=== PATIENT | male | born 1960 | race Caucasian/White ===

== ENCOUNTER 2017-01-13 17:15 | Inpatient (IN) | payer MEDICAID ==
[~2017-01-13 17:15] MED LIST: Sodium Chloride 0.9% 1,000 ML IV SCH
[2017-01-13] MEDS ORDERED: Sodium Chloride 0.9% 1,000 ML IV SCH (18:30)
[2017-01-13] MEDS ORDERED: Midazolam 1 MG/ML 2 ML SDV IVPUSH ONE (19:45)
--- NOTE | 2017-01-13 21:10 | EDM.PDOC ---
ED HPI GENERAL MEDICAL PROBLEM - General Chief Complaint: Gastrointestinal Problem Stated Complaint: VOMITING Time Seen by Provider: 01/13/17 18:23 Source of Information: Reports: Patient History Limitations: Reports: No Limitations - History of Present Illness INITIAL COMMENTS - FREE TEXT/NARRATIVE: History of present illness: [56-year-old male sent from the clinic with a small bowel obstruction. I did plain films there in lab work which I reviewed in the plain films do reveal multiple air-fluid levels and dilated loops of bowel. He's had nausea and vomiting with this he has a history of multiple abdominal surgeries and has had bowel obstructions in the past. Said no fever chills with this chest pain or shortness of breath no dysuria] Review of systems: As per history of present illness and below otherwise all systems reviewed and negative. Past medical history: As per history of present illness and as reviewed below otherwise noncontributory. Surgical history: As per history of present illness and as reviewed below otherwise noncontributory. Social history: No reported history of drug or alcohol abuse. Family history: As per history of present illness and as reviewed below otherwise noncontributory. Physical exam: HEENT: Atraumatic, Lungs: Clear to auscultation, breath sounds equal bilaterall Heart: S1S2, regular, negative for clicks, rubs, or JVD. Abdomen: Somewhat distended with hypoactive bowel sounds but no significant tenderness. No masses appreciated. Extremities: Atraumatic, negative for cords or calf pain. Neurovascular unremarkable. Neuro: Awake, alert, oriented. Exam nonfocal. Diagnostics: [X-rays lab work reviewed from the clinic in the x-rays do show multiple air- fluid levels with distended bowel. His creatinine is 2.21 with a history of renal failure.] Therapeutics: [IV fluids are going in the NG tube has been placed.] Impression: [Small bowel obstruction] Plan: [I talked to Dr. Álvarez the patient be admitted and he'll be in later to see him.] Definitive disposition and diagnosis as appropriate pending reevaluation and review of above. Abdomen Pain Score (Numeric/FACES): 8 - Related Data Allergies Allergy/AdvReac Type Severity Reaction Status Date / Time No Known Allergies Allergy Verified 01/13/17 18:21 Home Meds: Home Meds *Antacid Tablets 2 - 4 tab PO Q4HR PRN 04/15/13 [History] *Drysol 1 applic TOP ASDIRECTED 04/15/13 [History] Atenolol 100 mg PO DAILY 04/15/13 [History] Bisacodyl [Biscolax] 10 mg RC BID PRN 04/15/13 [History] Bisacodyl [Laxative] 10 mg PO DAILY 04/15/13 [History] Divalproex Sodium [Divalproex Sodium ER] 1,500 mg PO QPM 04/15/13 [History] Doxazosin Mesylate [Cardura] 4 mg PO DAILY 04/15/13 [History] Famotidine 40 mg PO BID 04/15/13 [History] Haloperidol 10 mg PO BID 04/15/13 [History] Ibuprofen [Motrin] 600 mg PO Q6H PRN 04/15/13 [History] LORazepam [Ativan] 1 mg PO BID 04/15/13 [History] LORazepam [Ativan] 1 mg PO BID PRN 04/15/13 [History] Levothyroxine 75 mcg PO DAILY 04/15/13 [History] Magnesium Hydroxide [Milk of Magnesia] 30 ml PO DAILY PRN 04/15/13 [History] Polyethylene Glycol 3350 [MiraLAX] 17 gm PO ASDIRECTED 04/15/13 [History] cloZAPine [Clozapine] 400 mg PO QPM 04/15/13 [History] diphenhydrAMINE [Benadryl] 25 mg PO QAM 04/15/13 [History] diphenhydrAMINE [Benadryl] 100 mg PO QPM 04/15/13 [History] Hypromellose [Systane Gel] 10 gm OP QID 10/06/13 [History] Latanoprost [Xalatan] 2.5 ml OP DAILY 10/06/13 [History] Past Medical History - Past Health History Medical/Surgical History: Denies Medical/Surgical History Gastrointestinal History: Reports: Bowel Obstruction Psychiatric History: Reports: Mood Swings, Schizophrenia - Past Surgical History GI Surgical History: Reports: Small Bowel Social & Family History - Tobacco Use Smoking Status *Q: Former Smoker Years of Tobacco use: 30 Used Tobacco, but Quit: Yes Month Tobacco Last Used: unknown Second Hand Smoke Exposure: No - Caffeine Use Caffeine Use: Reports: Soda - Alcohol Use Days Per Week of Alcohol Use: 1 Number of Drinks Per Day: 1 Total Drinks Per Week: 1 - Recreational Drug Use Recreational Drug Use: No - Living Situation & Occupation Living situation: Reports: Other ED ROS GENERAL - Review of Systems Review Of Systems: ROS reveals no pertinent complaints other than HPI. ED EXAM, GI/ABD - Physical Exam Exam: See Below Course - Vital Signs Last Recorded V/S: Last Vital Signs Temp 36.8 C 01/13/17 18:19 Pulse 89 01/13/17 20:05 Resp 14 01/13/17 20:05 BP 134/67 01/13/17 20:05 Pulse Ox 96 01/13/17 20:05 - Orders/Labs/Meds Orders: Active Orders 24 hr Category Date Time Status Sodium Chloride 0.9% [Normal Saline] 1,000 ml Med 01/13/17 18:30 Active IV ASDIRECTED Medication Orders Sodium Chloride (Normal Saline) 1,000 mls @ 500 mls/hr IV ASDIRECTED WILI Last Admin: 01/13/17 19:19 Dose: 500 mls/hr Meds: Medications Generic Name Dose Route Start Last Admin Trade Name Freq PRN Reason Stop Dose Admin Sodium Chloride 1,000 mls @ 500 mls/hr 01/13/17 18:30 01/13/17 19:19 Normal Saline IV 500 mls/hr ASDIRECTED WILI Administration Discontinued Medications Generic Name Dose Route Start Last Admin Trade Name Freq PRN Reason Stop Dose Admin Midazolam HCl 2 mg 01/13/17 19:45 01/13/17 20:02 Versed 1 Mg/Ml IVPUSH 01/13/17 19:46 2 mg ONETIME ONE Administration Departure - Departure Time of Disposition: 21:09 Disposition: Admitted As Inpatient 66 Condition: Good Clinical Impression: Small bowel obstruction - Discharge Information Forms: ED Department Discharge - My Orders Last 24 Hours: My Active Orders 01/13/17 18:30 Sodium Chloride 0.9% [Normal Saline] 1,000 ml IV ASDIRECTED - Assessment/Plan Last 24 Hours: My Active Orders 01/13/17 18:30 Sodium Chloride 0.9% [Normal Saline] 1,000 ml IV ASDIRECTED
[2017-01-13] MEDS ORDERED: Bisacodyl 10 MG Supp RECTAL PRN (22:14)
[2017-01-13] MEDS ORDERED: LORazepam 2 MG/ML MDV IM PRN (22:16)
[2017-01-13] MEDS ORDERED: Haloperidol Lactate 5 MG/ML SDV IM PRN (22:16)
[2017-01-13] MEDS ORDERED: Ondansetron 4 MG/2 ML SDV IVPUSH PRN (22:24)
[2017-01-13] MEDS ORDERED: Pantoprazole 40 MG Vial IVPUSH SCH (23:00)
[2017-01-14] MEDS: HYDROmorphone 0.5 MG/0.5 ML Syringe IVPUSH PRN ×3 (00:56→19:35)
--- NOTE | 2017-01-14 01:31 | HP ---
IDENTIFYING DATA: Tuan Perez is a 56-year-old single male from [place]. CHIEF COMPLAINT: Abdominal pain, nausea, and vomiting. HISTORY OF PRESENT ILLNESS: Adult male, who is a [facility] a [facility]. Staff have noted 1-1/2-day history of abdominal distention, abdominal discomfort, nausea, and recurrent emesis. He has a prior history of previous small bowel obstructions and suspecting recurring trouble, he presented to the clinic. Radiographic imaging did suggest small bowel obstruction. He was transferred to the emergency room for stabilization and admission. An NG placed in the emergency room resulted in alleviation of his abdominal pain and emesis. He is now resting comfortably in the medical bed. He has been a resident of the [facility] in [place] for approximately 5 years' time. More remote medical history is unknown to the staff. They report a previous history of abdominal surgeries of unknown type and prior hospitalizations for small bowel obstruction. He does have a history of intermittent dyspepsia. No known history of hepatitis or jaundice. No renal disease. PAST MEDICAL HISTORY: History of chronic schizophrenia on psychotropic agents with accompanying anxiety disorder. He has a reported history of hypertension, hypothyroidism, and mental retardation. HABITS: Nonsmoker. Minimal caffeine intake with occasional soft drinks. Does not drink coffee. Alcohol intake is summed up by 1 drink per year without routine alcohol intake. IMMUNIZATIONS: Does receive annual influenza vaccines. Tetanus booster last provided in 2008. SOCIAL HISTORY: Twin brother resides in [facility]. He has no direct close relatives in the immediate area. Staff members of the [facility] accompany him tonight. He typically ambulates independently, toilets without assistance. Occasionally, has overflow incontinence. He self feeds and dresses without assistance. Does require assistance with bathing or showering. FAMILY HISTORY: Unable to obtain. REVIEW OF SYSTEMS: NEUROLOGIC: Mental retardation, chronic schizophrenia, and anxiety disorder. No history of strokes, seizures, or headaches. He does have a history of dry eye syndrome and glaucomatous eye disease with eyedrops use. CARDIAC: History of hypertension. No recognized history of congenital heart disease, [place], chest pain, palpitations, or syncope. No history of diabetes. RESPIRATORY: Denies cough, sputum production, shortness of breath, or chest pain. No history of reported COPD. GI: As above. : No history of renal disease. Voids independently. Rises once to twice nightly to void and returns to bed. MUSCULOSKELETAL: Without arthralgias. He does walk with a shuffling gait. MENTAL STATUS: Chronic schizophrenia. Occasionally, has auditory hallucinations, more noticeable by staff's report. His intermittent anxiety is managed with anxiolytics. CURRENT MEDICATIONS: Calcium antacids 2 to 4 tablets q.4 hours p.r.n., Drysol applied topically p.r.n. sweat, atenolol 100 mg daily, bisacodyl 10 mg rectally b.i.d. p.r.n. constipation, bisacodyl 10 mg p.o. daily, divalproex 1500 mg at p.m., doxazosin 4 mg daily, famotidine 40 mg b.i.d., haloperidol 10 mg b.i.d., ibuprofen 600 mg q.6 hours p.r.n. discomfort, lorazepam 1 mg b.i.d. and q.6 hours p.r.n. anxiety, levothyroxine 75 mcg daily, milk of magnesia 30 mL daily p.r.n. constipation, MiraLax 17 g p.r.n. constipation, clozapine 400 mg q.p.m., diphenhydramine 25 mg a.m. and 100 mg p.m., Systane gel to eyes q.i.d., and Xalatan 2.5 (0.005%) ophthalmic solution 1 drop to eyes at bedtime. PHYSICAL EXAMINATION: GENERAL: Appearance is that of an adult male, now resting quietly in bed. Denies abdominal discomfort. NG is in place. VITAL SIGNS: Temperature 36.8, blood pressure 134/67, respiratory rate 14, pulse 89 and regular, and O2 sats 96% on room air. HEENT: Hearing is intact. Extraocular eye movements are intact. Sclerae anicteric. No oropharyngeal lesions. NG in place. NECK: Brisk carotid pulses. No stridor, adenopathy, or nuchal rigidity. LUNGS: Symmetrical and clear. Non-tachypneic, resonant. HEART: Regular without murmurs, gallops noted. ABDOMEN: Mildly distended. Mild tenderness diffusely without guarding, rebound, referred pain, or localization. No obvious organomegaly or other unusual masses. Bowel sounds are heard. Good femoral pulses. AND RECTAL: Omitted. EXTREMITIES: Warm and pink. No pitting edema. Brisk capillary refill. Good arterial pulses noted. LABORATORY DATA: Obtained in the clinic included a creatinine of 2.21, glucose 118, potassium 4.2, BUN 41, and AST 18. WBC 6.2 with hemoglobin 13.3. Sodium 142 and calcium 13. IMPRESSION: 1. Small bowel obstruction, acute, with noted history of recurrent small bowel obstructions. 2. Chronic schizophrenia, on psychotropic agents. 3. Anxiety disorder. 4. Reported mild mental retardation. 5. Hypertension. 6. Hypothyroidism. PLAN: The patient is admitted to Med/Surg floor for continued supportive cares. NG tube is in place to provide decompression. We will offer IV fluid hydration with normal saline at 125 mL/hr. Followup studies include CBC, BMP, and flat plate of the abdomen. We will hold his p.o. medications providing IV Haldol and Ativan as needed for anxiety, restlessness, agitation, or psychotic features. Protonix IV infusion is provided as PPI gastric protective therapy. DNR status is instituted with staff noting former declaration. We will provide a healthcare directive to place in the medical record. We will maintain n.p.o. status. Consider resumption of clear liquid intake and cautiously advance diet if bowel function is restored and passage of gas and stool is noted. If he has ongoing obstructive symptoms, we will consult surgical services for continued assistance in management. Nicolas Álvarez MD /[id number]
[2017-01-14] MEDS ORDERED: Hypromellose 0.4% Ophth Soln 15 ML Bottle EYEBOTH SCH (06:00)
[2017-01-14] MEDS: Sodium Chloride 0.9% 1,000 ML IV SCH ×2 (06:14→13:47)
[2017-01-14] MEDS: Enoxaparin 40 MG/0.4 ML Syringe SUBCUT SCH (08:38)
[2017-01-14] MEDS ORDERED: Enoxaparin 30 MG/0.3 ML Syringe SUBCUT SCH (09:00)
[2017-01-14] MEDS ORDERED: Latanoprost 0.005% Ophth Soln 2.5 ML Bottle EYERT SCH (09:00)
[2017-01-14] MEDS: Hypromellose 0.4% Ophth Soln 15 ML Bottle EYEBOTH SCH ×3 (09:09→23:30)
--- NOTE | 2017-01-14 09:13 | CR ---
Abdomen 1V Flat HISTORY: FU SBO COMPARISON: 09/16/2015 FINDINGS: A couple of mildly prominent small bowel loops mid abdomen appear similar to the prior exa m. Bowel gas pattern is otherwise nonspecific. No free air is identified. No mass organomegaly is se en. Bony structures are unremarkable. IMPRESSION: There are couple of mildly dilated small bowel loops in the midabdomen similar to the pr ior exam. Findings could represent mild recurrent or chronic enteritis or early partial small bowel obstruction. Recommend clinical correlation and follow-up.
[2017-01-14] MEDS: LORazepam 2 MG/ML MDV IVPUSH PRN (16:24)
[2017-01-14] MEDS ORDERED: HYDROmorphone 1 MG/ML Syringe ONE (19:30)
[2017-01-14] MEDS ORDERED: Pantoprazole 40 MG Vial IVPUSH SCH (21:00)
[2017-01-14] MEDS: Latanoprost 0.005% Ophth Soln 2.5 ML Bottle EYERT SCH (21:31)
[2017-01-15] MEDS: LORazepam 2 MG/ML MDV IVPUSH PRN (00:29)
[2017-01-15] MEDS: HYDROmorphone 1 MG/ML Syringe IVPUSH PRN ×2 (02:18→10:35)
[2017-01-15] MEDS: Sodium Chloride 0.9% 1,000 ML IV SCH ×3 (06:14→21:07)
[2017-01-15] MEDS: Hypromellose 0.4% Ophth Soln 15 ML Bottle EYEBOTH SCH ×4 (06:20→21:08)
[2017-01-15] MEDS: Enoxaparin 40 MG/0.4 ML Syringe SUBCUT SCH (09:21)
--- NOTE | 2017-01-15 09:23 | PCM.PN ---
- General Info Date of Service: 01/15/17 Functional Status: Reports: pain controlled, urinating - Review of Systems General: Denies: Fever Gastrointestinal: Reports: Flatus. Denies: Abdominal pain Systems Review Comment:: No acute events overnight. Patient reports no abdominal pain this morning. He reports that he is passing gas but has not had a bowel movement as of yet. He is not running any fevers. Respiratory status is stable. No complaints of nausea or vomiting. He is hungry and asking when he gets to eat. - Patient Data Vitals - most recent: Last Vital Signs Temp 35.7 C 01/15/17 07:54 Pulse 98 01/15/17 07:54 Resp 16 01/15/17 07:54 BP 148/82 H 01/15/17 07:54 Pulse Ox 93 L 01/15/17 07:54 Weight - most recent: 72.076 kg I&O - last 24 hours: Intake & Output 01/14/17 01/15/17 01/15/17 22:59 06:59 14:59 Intake Total 1456 1517 Output Total 1450 1250 Balance 6 267 Lab Results last 24 hrs: Laboratory Results - last 24 hr 01/15/17 Range/Units 09:00 WBC 7.7 (4.5-11.0) K/uL RBC 4.36 (4.30-5.90) M/uL Hgb 12.7 (12.0-15.0) g/dL Hct 38.7 L (40.0-54.0) % MCV 89 (80-98) fL MCH 29 (27-31) pg MCHC 33 (32-36) % Plt Count 188 (150-400) K/uL Med Orders - Current: Current Medications Artificial Tears (Natural Balance Tears) 0 ml EYEBOTH QID [facility] Last Admin: 01/15/17 06:20 Dose: 1 drop Bisacodyl (Dulcolax) 10 mg RECTAL BID PRN PRN Reason: Constipation Enoxaparin Sodium (Lovenox) 40 mg SUBCUT DAILY [facility] Last Admin: 01/14/17 08:38 Dose: 40 mg Haloperidol Lactate (Haldol) 5 mg IM Q8H PRN PRN Reason: Psychosis Hydromorphone HCl (Dilaudid) 0.5 mg IVPUSH Q2H PRN PRN Reason: Pain Last Admin: 01/15/17 02:18 Dose: 0.5 mg Sodium Chloride (Normal Saline) 1,000 mls @ 125 mls/hr IV ASDIRECTED [facility] Last Admin: 01/15/17 06:14 Dose: 125 mls/hr Latanoprost (Xalatan 0.005% Ophth Soln) 0 ml EYERT BEDTIME [facility] Last Admin: 01/14/17 21:31 Dose: 1 drop Lorazepam (Ativan) 1 mg IVPUSH Q4H PRN PRN Reason: Agitation Last Admin: 01/15/17 00:29 Dose: 1 mg Ondansetron HCl (Zofran) 4 mg IVPUSH Q4H PRN PRN Reason: Nausea/Vomiting Pantoprazole Sodium (Protonix Iv) 40 mg IVPUSH Q24H [facility] Last Admin: 01/14/17 21:23 Dose: 40 mg Discontinued Medications Artificial Tears (Natural Balance Tears) 0 ml EYEBOTH QID [facility] Last Admin: 01/14/17 07:22 Dose: Not Given Enoxaparin Sodium (Lovenox) 40 mg SUBCUT DAILY [facility] Hydromorphone HCl (Dilaudid) 0.5 mg IVPUSH Q2H PRN PRN Reason: Pain Last Admin: 01/14/17 19:35 Dose: 0.5 mg Hydromorphone HCl (Dilaudid) Confirm Administered Dose 1 mg .ROUTE .STK-MED ONE Stop: 01/14/17 19:31 Last Admin: 01/14/17 21:23 Dose: Not Given Sodium Chloride (Normal Saline) 1,000 mls @ 500 mls/hr IV ASDIRECTED [facility] Last Admin: 01/13/17 19:19 Dose: 500 mls/hr Sodium Chloride (Normal Saline) 1,000 mls @ 125 mls/hr IV ASDIRECTED [facility] Latanoprost (Xalatan 0.005% Ophth Soln) 2.5 ml EYERT DAILY [facility] Lorazepam (Ativan) 2 mg IM Q4H PRN PRN Reason: Agitation Midazolam HCl (Versed 1 Mg/Ml) 2 mg IVPUSH ONETIME ONE Stop: 01/13/17 19:46 Last Admin: 01/13/17 20:02 Dose: 2 mg Pantoprazole Sodium (Protonix Iv) 40 mg IVPUSH Q24H [facility] Last Admin: 01/14/17 00:53 Dose: 40 mg - Exam Quality Assessment: No: supplemental oxygen General: alert, oriented, cooperative, no acute distress HEENT: Other (NG tube in place) Neck: supple Lungs: Clear to auscultation, Normal respiratory effort Cardiovascular: Regular Rate, Regular Rhythm Abdomen: bowel sounds present, soft, no tenderness, no distension Extremities: no edema, normal pulses Skin: warm, dry Psy/Mental Status: alert, anxious - Problem List & Annotations (1) Small bowel obstruction SNOMED Code(s): 734933506 Code(s): K56.69 - OTHER INTESTINAL OBSTRUCTION Status: Acute Current Visit: Yes (2) Schizophrenia SNOMED Code(s): 27963726 Code(s): F20.9 - SCHIZOPHRENIA, UNSPECIFIED Status: Chronic Current Visit : Yes Qualifiers: Schizophrenia type: unspecified Qualified Code(s): F20.9 - Schizophrenia, unspecified - Problem List Review Problem List Initiated/Reviewed/Updated: Yes - My Orders Last 24 Hours: My Active Orders 01/14/17 11:01 Resuscitation Status Routine 01/14/17 16:04 LORazepam [Ativan] 1 mg IVPUSH Q4H PRN 01/15/17 02:00 HYDROmorphone [Dilaudid] 0.5 mg IVPUSH Q2H PRN 01/15/17 09:00 BASIC METABOLIC PANEL,BMP [CHEM] Urgent 01/15/17 09:19 Communication Order [RC] ROUTINE 01/16/17 05:00 BASIC METABOLIC PANEL,BMP [CHEM] Timed CBC W/O DIFF,HEMOGRAM [HEME] Timed (1) - Plan Plan:: Assessment and plan - Recurrent small bowel obstruction - clinically improving at this time with nonsurgical management. No abdominal pain at this time and no significant distention. Patient is passing gas. -Clamp NG tube, consider removing if minimal output in 4 hours -Pain control if necessary -Ice chips for now, advance diet if NG tube comes out Chronic schizophrenia with anxiety no behaviors at this time. Has been tolerating IV medications. -Restart home medications when able after NG tube clamping trial Maintenance issues - - DVT prophylaxis - mechanical - GI prophylaxis - PPI - Nutrition - nothing by mouth for now - Rodriguez catheter - not indicated Disposition - [facility] to [facility] a [facility] days Farhan Nj M.D.
[2017-01-15] MEDS: LORazepam 1 MG Tab PO PRN (18:00)
[2017-01-15] MEDS: Divalproex Sodium 250 MG Tab.ER PO SCH (18:06)
[2017-01-15] MEDS: Famotidine 20 MG Tab PO SCH (20:25)
[2017-01-15] MEDS: LORazepam 1 MG Tab PO SCH (20:25)
[2017-01-15] MEDS: Latanoprost 0.005% Ophth Soln 2.5 ML Bottle EYERT SCH (20:26)
[2017-01-15] MEDS: Haloperidol 5 MG Tab PO SCH (20:26)
[2017-01-16] MEDS: Hypromellose 0.4% Ophth Soln 15 ML Bottle EYEBOTH SCH ×4 (05:57→21:07)
[2017-01-16] MEDS: LORazepam 1 MG Tab PO SCH ×2 (08:38→21:07)
[2017-01-16] MEDS: diphenhydrAMINE 25 MG Cap PO SCH (08:38)
[2017-01-16] MEDS: Enoxaparin 40 MG/0.4 ML Syringe SUBCUT SCH (08:39)
[2017-01-16] MEDS: Haloperidol 5 MG Tab PO SCH ×2 (08:39→21:06)
[2017-01-16] MEDS: Levothyroxine 75 MCG Tab PO SCH (08:39)
[2017-01-16] MEDS: Famotidine 20 MG Tab PO SCH ×2 (08:40→21:06)
[2017-01-16] MEDS: Atenolol 50 MG Tab PO SCH (08:40)
--- NOTE | 2017-01-16 08:57 | PCM.PN ---
- General Info Date of Service: 01/16/17 Functional Status: Reports: pain controlled, tolerating diet, ambulating - Review of Systems General: Reports: Weakness Gastrointestinal: Reports: Flatus. Denies: Abdominal pain Systems Review Comment:: no acute events overnight. No complaints of abdominal pain or nausea this morning. Tolerating clear liquids well with no change in symptoms. He has been passing gas but has not had a bowel movement. No fevers or shortness of breath. Anxiety has been well controlled. - Patient Data Vitals - most recent: Last Vital Signs Temp 36.4 C 01/16/17 08:06 Pulse 83 01/16/17 08:06 Resp 14 01/16/17 08:06 BP 135/85 01/16/17 08:40 Pulse Ox 94 L 01/16/17 08:06 Weight - most recent: 72.076 kg I&O - last 24 hours: Intake & Output 01/15/17 01/16/17 01/16/17 22:59 06:59 14:59 Intake Total 1878 675 Output Total 1300 1250 Balance 578 -575 Lab Results last 24 hrs: Laboratory Results - last 24 hr 01/15/17 01/15/17 01/16/17 Range/Units 09:00 09:00 06:10 WBC 7.7 10.0 (4.5-11.0) K/uL RBC 4.36 4.36 (4.30-5.90) M/uL Hgb 12.7 12.6 (12.0-15.0) g/dL Hct 38.7 L 37.7 L (40.0-54.0) % MCV 89 87 (80-98) fL MCH 29 29 (27-31) pg MCHC 33 33 (32-36) % Plt Count 188 233 (150-400) K/uL Sodium 142 (140-148) mmol/L Potassium 3.6 (3.6-5.2) mmol/L Chloride 107 (100-108) mmol/L Carbon Dioxide 26 (21-32) mmol/L Anion Gap 9.5 (5.0-14.0) mmol/L BUN 11 D (7-18) mg/dL Creatinine 0.9 (0.8-1.3) mg/dL Est Cr Clr Drug Dosing 83.12 mL/min Estimated GFR (MDRD) > 60 (>60) Glucose 86 (74-106) mg/dL Calcium 7.9 L (8.5-10.1) mg/dL 01/16/17 Range/Units 06:10 WBC (4.5-11.0) K/uL RBC (4.30-5.90) M/uL Hgb (12.0-15.0) g/dL Hct (40.0-54.0) % MCV (80-98) fL MCH (27-31) pg MCHC (32-36) % Plt Count (150-400) K/uL Sodium 141 (140-148) mmol/L Potassium 3.5 L (3.6-5.2) mmol/L Chloride 106 (100-108) mmol/L Carbon Dioxide 29 (21-32) mmol/L Anion Gap 9.5 (5.0-14.0) mmol/L BUN 7 (7-18) mg/dL Creatinine 1.0 (0.8-1.3) mg/dL Est Cr Clr Drug Dosing 74.81 mL/min Estimated GFR (MDRD) > 60 (>60) Glucose 90 (74-106) mg/dL Calcium 8.2 L (8.5-10.1) mg/dL Med Orders - Current: Current Medications Artificial Tears (Natural Balance Tears) 0 ml EYEBOTH QID [facility] Last Admin: 01/16/17 05:57 Dose: 1 drop Atenolol (Tenormin) 100 mg PO DAILY [facility] Last Admin: 01/16/17 08:40 Dose: 100 mg Bisacodyl (Dulcolax) 10 mg PO ONETIME ONE Stop: 01/16/17 08:56 Clozapine (Clozapine) 400 mg PO QPM [facility] Diphenhydramine HCl (Benadryl) 25 mg PO QAM [facility] Last Admin: 01/16/17 08:38 Dose: 25 mg Diphenhydramine HCl (Benadryl) 100 mg PO QPM [facility] Divalproex Sodium (Depakote Er) 1,500 mg PO QPM [facility] Last Admin: 01/15/17 18:06 Dose: 1,500 mg Enoxaparin Sodium (Lovenox) 40 mg SUBCUT DAILY [facility] Last Admin: 01/16/17 08:39 Dose: 40 mg Famotidine (Pepcid) 40 mg PO BID [facility] Last Admin: 01/16/17 08:40 Dose: 40 mg Haloperidol (Haldol) 10 mg PO BID [facility] Last Admin: 01/16/17 08:39 Dose: 10 mg Haloperidol Lactate (Haldol) 5 mg IM Q8H PRN PRN Reason: Psychosis Hydromorphone HCl (Dilaudid) 0.5 mg IVPUSH Q2H PRN PRN Reason: Pain Last Admin: 01/15/17 10:35 Dose: 0.5 mg Sodium Chloride (Normal Saline) 1,000 mls @ 50 mls/hr IV ASDIRECTED [facility] Last Admin: 01/15/17 21:07 Dose: 125 mls/hr Latanoprost (Xalatan 0.005% Oph Soln) 0 ml EYERT BEDTIME [facility] Last Admin: 01/15/17 20:26 Dose: 1 drop Levothyroxine Sodium (Levothyroxine) 75 mcg PO DAILY [facility] Last Admin: 01/16/17 08:39 Dose: 75 mcg Lorazepam (Ativan) 1 mg PO BID PRN PRN Reason: Anxiety Last Admin: 01/15/17 18:00 Dose: 1 mg Lorazepam (Ativan) 1 mg PO BID [facility] Last Admin: 01/16/17 08:38 Dose: 1 mg Ondansetron HCl (Zofran) 4 mg IVPUSH Q4H PRN PRN Reason: Nausea/Vomiting Potassium Chloride (Klor-Con M20) 40 meq PO ONETIME ONE Stop: 01/16/17 08:56 Discontinued Medications Artificial Tears (Natural Balance Tears) 0 ml EYEBOTH QID [facility] Last Admin: 01/14/17 07:22 Dose: Not Given Bisacodyl (Dulcolax) 10 mg RECTAL BID PRN PRN Reason: Constipation Enoxaparin Sodium (Lovenox) 40 mg SUBCUT DAILY [facility] Hydromorphone HCl (Dilaudid) 0.5 mg IVPUSH Q2H PRN PRN Reason: Pain Last Admin: 01/14/17 19:35 Dose: 0.5 mg Hydromorphone HCl (Dilaudid) Confirm Administered Dose 1 mg .ROUTE .STK-MED ONE Stop: 01/14/17 19:31 Last Admin: 01/14/17 21:23 Dose: Not Given Sodium Chloride (Normal Saline) 1,000 mls @ 500 mls/hr IV ASDIRECTED [facility] Last Admin: 01/13/17 19:19 Dose: 500 mls/hr Sodium Chloride (Normal Saline) 1,000 mls @ 125 mls/hr IV ASDIRECTED [facility] Latanoprost (Xalatan 0.005% Ophth Soln) 2.5 ml EYERT DAILY [facility] Lorazepam (Ativan) 2 mg IM Q4H PRN PRN Reason: Agitation Lorazepam (Ativan) 1 mg IVPUSH Q4H PRN PRN Reason: Agitation Last Admin: 01/15/17 00:29 Dose: 1 mg Midazolam HCl (Versed 1 Mg/Ml) 2 mg IVPUSH ONETIME ONE Stop: 01/13/17 19:46 Last Admin: 01/13/17 20:02 Dose: 2 mg Pantoprazole Sodium (Protonix Iv) 40 mg IVPUSH Q24H [facility] Last Admin: 01/14/17 00:53 Dose: 40 mg Pantoprazole Sodium (Protonix Iv) 40 mg IVPUSH Q24H [facility] Last Admin: 01/14/17 21:23 Dose: 40 mg - Exam Quality Assessment: No: supplemental oxygen General: alert, oriented, cooperative, no acute distress Neck: supple Lungs: Normal respiratory effort Cardiovascular: Regular Rate, Regular Rhythm Abdomen: soft, no tenderness, no distension Extremities: no edema Skin: warm, dry Psy/Mental Status: alert, anxious - Problem List & Annotations (1) Small bowel obstruction SNOMED Code(s): 979598556 Code(s): K56.69 - OTHER INTESTINAL OBSTRUCTION Status: Acute Current Visit: Yes (2) Schizophrenia SNOMED Code(s): 32204787 Code(s): F20.9 - SCHIZOPHRENIA, UNSPECIFIED Status: Chronic Current Visit : Yes Qualifiers: Schizophrenia type: unspecified Qualified Code(s): F20.9 - Schizophrenia, unspecified - Problem List Review Problem List Initiated/Reviewed/Updated: Yes - My Orders Last 24 Hours: My Active Orders 01/15/17 13:15 NG [Nasogastric Orogastric Tube Removal] [OM.PC] Routine 01/15/17 17:48 LORazepam [Ativan] 1 mg PO BID PRN 01/15/17 18:00 Divalproex Sodium [Depakote ER] 1,500 mg PO QPM 01/15/17 21:00 Famotidine [Pepcid] 40 mg PO BID Haloperidol [Haldol] 10 mg PO BID LORazepam [Ativan] 1 mg PO BID 01/16/17 08:55 Bisacodyl [Dulcolax] 10 mg PO ONETIME ONE Potassium Chloride [Klor-Con M20] 40 meq PO ONETIME ONE 01/16/17 08:56 Convert IV to Saline Lock [OM.PC] Routine 01/16/17 09:00 Atenolol [Tenormin] 100 mg PO DAILY Levothyroxine 75 mcg PO DAILY diphenhydrAMINE [Benadryl] 25 mg PO QAM 01/16/17 17:00 cloZAPine 400 mg PO QPM diphenhydrAMINE [Benadryl] 100 mg PO QPM 01/16/17 Lunch Full Liquid Diet [DIET] 01/17/17 05:00 BASIC METABOLIC PANEL,BMP [CHEM] Timed - Plan Plan:: Assessment and plan - Recurrent small bowel obstruction - tolerating clear liquid diet, no pain. No bowel movement as of yet. -advance to full liquids -Dulcolax tablets -Pain control if necessary -soft diet later if he has a bowel movement in Chronic schizophrenia with anxiety - no behavior issues and doing well. home medications restarted last night. -continue home medications Maintenance issues - - DVT prophylaxis - enoxaparin - GI prophylaxis - PPI - Nutrition - full liquids, advance later if tolerating diet and has a bowel movement - Rodriguez catheter - not indicated Disposition - anticipate discharge back to assisted-living tomorrow if stable overnight Farhan Nj M.D.
[2017-01-16] MEDS ORDERED: Bisacodyl 5 MG Tab PO ONE (09:30)
[2017-01-16] MEDS ORDERED: Potassium Chloride 20 MEQ Tab.ER PO ONE (09:30)
[2017-01-16] MEDS ORDERED: Magnesium Hydroxide 400 MG/5 ML Susp 30 ML Cup PO PRN (13:29)
[2017-01-16] MEDS: Divalproex Sodium 250 MG Tab.ER PO SCH (16:56)
[2017-01-16] MEDS ORDERED: diphenhydrAMINE 25 MG Cap PO SCH (17:00)
[2017-01-16] MEDS ORDERED: CLOZAPINE 100 MG PO SCH (17:00)
[2017-01-16] MEDS: LORazepam 1 MG Tab PO PRN (17:47)
[2017-01-16] MEDS: Latanoprost 0.005% Ophth Soln 2.5 ML Bottle EYERT SCH (21:07)
[2017-01-17] MEDS: Hypromellose 0.4% Ophth Soln 15 ML Bottle EYEBOTH SCH ×2 (06:19→10:26)
[2017-01-17 07:22] VITALS: BP 139/74
[2017-01-17] MEDS: diphenhydrAMINE 25 MG Cap PO SCH (08:02)
[2017-01-17] MEDS: Levothyroxine 75 MCG Tab PO SCH (08:03)
[2017-01-17] MEDS: Haloperidol 5 MG Tab PO SCH (08:03)
[2017-01-17] MEDS: Famotidine 20 MG Tab PO SCH (08:03)
[2017-01-17] MEDS: Atenolol 50 MG Tab PO SCH (08:03)
[2017-01-17] MEDS: Enoxaparin 40 MG/0.4 ML Syringe SUBCUT SCH (08:03)
[2017-01-17] MEDS: LORazepam 1 MG Tab PO SCH (08:03)
[2017-01-17] MEDS ORDERED: Potassium Chloride 20 MEQ Tab.ER PO ONE (09:00)
--- NOTE | 2017-01-17 09:19 | PCM.DCSUM1 ---
Discharge Summary - Hospital Course Brief History: 56-year-old male with history of severe schizophrenia and recurrent small bowel obstructions who presented with abdominal pain, vomiting and was admitted for management of a recurrent small bowel obstruction. - Discharge Data Discharge Date: 01/17/17 Discharge Disposition: Home, Self-Care 01 Condition: Good - Discharge Diagnosis/Problem(s) (1) Small bowel obstruction SNOMED Code(s): 069991591 ICD Code: K56.69 - OTHER INTESTINAL OBSTRUCTION Status: Acute Current Visit: Yes (2) Schizophrenia SNOMED Code(s): 80862875 ICD Code: F20.9 - SCHIZOPHRENIA, UNSPECIFIED Status: Chronic Current Visit: Yes Qualifiers: Schizophrenia type: unspecified Qualified Code(s): F20.9 - Schizophrenia, unspecified - Patient Summary/Data Hospital Course: Tuan presented to the emergency room with abdominal pain and vomiting. Workup in the emergency room suggested a recurrent small bowel obstruction. An NG tube was placed and IV fluids were started. He was admitted to the hospital for pain control and further management. Overnight following admission his pain improved significantly. NG tube output had been decreasing during that time but had persisted. Repeat x-ray the morning after admission showed some improvement in the obstruction but still some dilated loops. We elected to continue the NG tube for second day. By hospital day 2 he is passing gas and his NG tube output has decreased to a very small quantity only. We did clamp his NG tube for 4 hours and had only a small quantity of fluid when we did reconnect the suction tubing. At this point we elected to remove the NG tube. We advanced his diet to clear liquids. He tolerated the clear liquids well and we advanced him to full liquids. On the third day, the day before discharge we are able to advance him to a mechanical soft diet after he started having bowel movements. He has tolerated this diet well with no nausea. He does have some mild pain the day of discharge. I suspect that it's related to activity yesterday as well as multiple episodes of stooling last night. Tolerated breakfast with no change in symptoms. I believe he is safe for outpatient management at this time. His chronic schizophrenia has been stable during the course of the hospital stay. - Patient Instructions Diet: Regular Diet as Tolerated (Soft and bland foods for 2 weeks), Drink 8-10+ Glasses/Day Activity: As Tolerated Driving: Do Not Drive Showering/Bathing: May Shower Notify Provider of: Fever, Increased Pain, Nausea and/or Vomiting Other/Special Instructions: 1. You were in the hospital for management of a recurrent small bowel obstruction. This obstruction has resolved without the need for surgical intervention. To help avoid recurrent issues I would recommend a soft bland diet for the next 2 weeks as well as regular activity such as walking while there are commercials on TV and be sure to drink plenty of fluids as detailed above. 2. Continue your usual home medications as previously prescribed. 3. Please seek medical attention if you develop fever greater than 101, have progressive and severe abdominal pain, persistent vomiting or severe, persistent diarrhea. - Discharge Plan Home Medications: Home Meds *Antacid Tablets 2 - 4 tab PO Q4HR PRN 04/15/13 [History] *Drysol 1 applic TOP ASDIRECTED 04/15/13 [History] Atenolol 100 mg PO DAILY 04/15/13 [History] Bisacodyl [Biscolax] 10 mg RC BID PRN 04/15/13 [History] Bisacodyl [Laxative] 10 mg PO DAILY 04/15/13 [History] Divalproex Sodium [Divalproex Sodium ER] 1,500 mg PO QPM 04/15/13 [History] Doxazosin Mesylate [Cardura] 4 mg PO DAILY 04/15/13 [History] Famotidine 40 mg PO BID 04/15/13 [History] Haloperidol 10 mg PO BID 04/15/13 [History] Ibuprofen [Motrin] 600 mg PO Q6H PRN 04/15/13 [History] LORazepam [Ativan] 1 mg PO BID 04/15/13 [History] LORazepam [Ativan] 1 mg PO BID PRN 04/15/13 [History] Levothyroxine 75 mcg PO DAILY 04/15/13 [History] Magnesium Hydroxide [Milk of Magnesia] 30 ml PO DAILY PRN 04/15/13 [History] Polyethylene Glycol 3350 [MiraLAX] 17 gm PO ASDIRECTED 04/15/13 [History] cloZAPine [Clozapine] 400 mg PO QPM 04/15/13 [History] diphenhydrAMINE [Benadryl] 25 mg PO QAM 04/15/13 [History] diphenhydrAMINE [Benadryl] 100 mg PO QPM 04/15/13 [History] Hypromellose [Systane Gel] 10 gm OP QID 10/06/13 [History] Latanoprost [Xalatan 0.005% Ophth Soln] 2.5 ml OP DAILY 10/06/13 [History] Patient Handouts: Small Bowel Obstruction, [id number] Referrals: Shari Smith PA [Primary Care Provider] - (f/u as needed if symptoms get worse or do not continue to get better) - Discharge Summary/Plan Comment DC Time >30 min.: No (25) - Patient Data Vitals - Most Recent: Last Vital Signs Temp 36.9 C 01/17/17 07:22 Pulse 93 01/17/17 08:03 Resp 14 01/17/17 07:22 BP 139/74 01/17/17 08:03 Pulse Ox 91 L 01/17/17 07:22 Weight - Most Recent: 72.076 kg I&O - Last 24 hours: Intake & Output 01/16/17 01/17/17 01/17/17 22:59 06:59 14:59 Intake Total 720 Balance 720 Lab Results - Last 24 hrs: Laboratory Results - last 24 hr 01/17/17 Range/Units 05:25 Sodium 145 (140-148) mmol/L Potassium 3.6 (3.6-5.2) mmol/L Chloride 107 (100-108) mmol/L Carbon Dioxide 30 (21-32) mmol/L Anion Gap 7.9 (5.0-14.0) mmol/L BUN 10 (7-18) mg/dL Creatinine 1.0 (0.8-1.3) mg/dL Est Cr Clr Drug Dosing 74.81 mL/min Estimated GFR (MDRD) > 60 (>60) Glucose 91 (74-106) mg/dL Calcium 8.3 L (8.5-10.1) mg/dL Med Orders - Current: Current Medications Artificial Tears (Natural Balance Tears) 0 ml EYEBOTH QID [facility] Last Admin: 01/17/17 06:19 Dose: Not Given Atenolol (Tenormin) 100 mg PO DAILY [facility] Last Admin: 01/17/17 08:03 Dose: 100 mg Clozapine (Clozapine) 400 mg PO QPM [facility] Last Admin: 01/16/17 16:56 Dose: 400 mg Diphenhydramine HCl (Benadryl) 25 mg PO QAM [facility] Last Admin: 01/17/17 08:02 Dose: 25 mg Diphenhydramine HCl (Benadryl) 100 mg PO QPM [facility] Last Admin: 01/16/17 16:55 Dose: 100 mg Divalproex Sodium (Depakote Er) 1,500 mg PO QPM [facility] Last Admin: 01/16/17 16:56 Dose: 1,500 mg Enoxaparin Sodium (Lovenox) 40 mg SUBCUT DAILY [facility] Last Admin: 01/17/17 08:03 Dose: 40 mg Famotidine (Pepcid) 40 mg PO BID [facility] Last Admin: 01/17/17 08:03 Dose: 40 mg Haloperidol (Haldol) 10 mg PO BID [facility] Last Admin: 01/17/17 08:03 Dose: 10 mg Haloperidol Lactate (Haldol) 5 mg IM Q8H PRN PRN Reason: Psychosis Hydromorphone HCl (Dilaudid) 0.5 mg IVPUSH Q2H PRN PRN Reason: Pain Last Admin: 01/15/17 10:35 Dose: 0.5 mg Latanoprost (Xalatan 0.005% Ophth Soln) 0 ml EYERT BEDTIME [facility] Last Admin: 01/16/17 21:07 Dose: 1 drop Levothyroxine Sodium (Levothyroxine) 75 mcg PO DAILY [facility] Last Admin: 01/17/17 08:03 Dose: 75 mcg Lorazepam (Ativan) 1 mg PO BID PRN PRN Reason: Anxiety Last Admin: 01/16/17 17:47 Dose: 1 mg Lorazepam (Ativan) 1 mg PO BID [facility] Last Admin: 01/17/17 08:03 Dose: 1 mg Magnesium Hydroxide (Milk Of Magnesia) 30 ml PO BID PRN PRN Reason: Constipation Last Admin: 01/16/17 13:42 Dose: 30 ml Ondansetron HCl (Zofran) 4 mg IVPUSH Q4H PRN PRN Reason: Nausea/Vomiting Discontinued Medications Artificial Tears (Natural Balance Tears) 0 ml EYEBOTH QID [facility] Last Admin: 01/14/17 07:22 Dose: Not Given Bisacodyl (Dulcolax) 10 mg RECTAL BID PRN PRN Reason: Constipation Bisacodyl (Dulcolax) 10 mg PO ONETIME ONE Stop: 01/16/17 09:31 Last Admin: 01/16/17 09:44 Dose: 10 mg Enoxaparin Sodium (Lovenox) 40 mg SUBCUT DAILY [facility] Hydromorphone HCl (Dilaudid) 0.5 mg IVPUSH Q2H PRN PRN Reason: Pain Last Admin: 01/14/17 19:35 Dose: 0.5 mg Hydromorphone HCl (Dilaudid) Confirm Administered Dose 1 mg .ROUTE .STK-MED ONE Stop: 01/14/17 19:31 Last Admin: 01/14/17 21:23 Dose: Not Given Sodium Chloride (Normal Saline) 1,000 mls @ 500 mls/hr IV ASDIRECTED [facility] Last Admin: 01/13/17 19:19 Dose: 500 mls/hr Sodium Chloride (Normal Saline) 1,000 mls @ 125 mls/hr IV ASDIRECTED [facility] Sodium Chloride (Normal Saline) 1,000 mls @ 50 mls/hr IV ASDIRECTED [facility] Last Admin: 01/15/17 21:07 Dose: 125 mls/hr Latanoprost (Xalatan 0.005% Ophth Soln) 2.5 ml EYERT DAILY [facility] Lorazepam (Ativan) 2 mg IM Q4H PRN PRN Reason: Agitation Lorazepam (Ativan) 1 mg IVPUSH Q4H PRN PRN Reason: Agitation Last Admin: 01/15/17 00:29 Dose: 1 mg Midazolam HCl (Versed 1 Mg/Ml) 2 mg IVPUSH ONETIME ONE Stop: 01/13/17 19:46 Last Admin: 01/13/17 20:02 Dose: 2 mg Pantoprazole Sodium (Protonix Iv) 40 mg IVPUSH Q24H [facility] Last Admin: 01/14/17 00:53 Dose: 40 mg Pantoprazole Sodium (Protonix Iv) 40 mg IVPUSH Q24H [facility] Last Admin: 01/14/17 21:23 Dose: 40 mg Potassium Chloride (Klor-Con M20) 40 meq PO ONETIME ONE Stop: 01/16/17 09:31 Last Admin: 01/16/17 09:44 Dose: 40 meq Potassium Chloride (Klor-Con M20) 40 meq PO ONETIME ONE Stop: 01/17/17 09:01 *Q Meaningful Use (DIS) - VTE *Q VTE Criteria *Q: - Stroke *Q Stroke Criteria *Q: - AMI *Q AMI Criteria *Q:
== END 2017-01-17 10:55 | disposition home or self-care (01) | DRG 389 ==
LOC: JP.ED 17:15 → JP.ICU 21:30
PROVIDERS: ADMIT Family Medicine; ATTEND Internal Medicine
DX: K56.69 Other intestinal obstruction (principal); F20.89 Other schizophrenia; F70 Mild intellectual disabilities; I10 Essential (primary) hypertension; E03.9 Hypothyroidism, unspecified; F41.9 Anxiety disorder, unspecified; Z87.891 Personal history of nicotine dependence; H04.129 Dry eye syndrome of unspecified lacrimal gland; H40.9 Unspecified glaucoma; Z87.19 Personal history of other diseases of the digestive system
CPT/HCPCS: 36415; 74000; 74000-26; 80048; 85025; 85027; 85048; 96361; 96374; 99284; 99284-25; A9270-GY; C9113; J1170; J1650; J2060; J2250; J7040

== ENCOUNTER 2017-10-05 07:08 | Day surgery (SDC) | payer MEDICAID ==
[~2017-10-05 07:08] MED LIST changes: +Lactated Ringers 1,000 ML IV SCH; -Sodium Chloride 0.9% 1,000 ML IV SCH
[2017-10-05] MEDS ORDERED: Midazolam 1 MG/ML 2 ML SDV ONE (08:18)
[2017-10-05] MEDS ORDERED: Propofol 200 MG/20 ML SDV ONE (08:18)
[2017-10-05] MEDS ORDERED: fentaNYL 100 MCG/2 ML SDV ONE (08:18)
[2017-10-05] MEDS ORDERED: Piperacillin/Tazobactam/Dext 3.375 GM in Premix Bag 1 BAG IV ONE (09:45)
[2017-10-05 09:49] VITALS: BP 149/78
--- NOTE | 2017-10-06 07:50 | OR ---
DATE OF PROCEDURE: 10/05/2017 PREOPERATIVE DIAGNOSIS: History of colon polyps. POSTOPERATIVE DIAGNOSES: 1. Two colon polyps, larger one in the transverse colon and smaller one in the cecum. 2. History of colon polyps. PROCEDURES: Colonoscopy to the cecum with snare cautery polypectomy of transverse colon polyp and biopsy resection of cecal polyp. SURGEON: Bean Zimmerman MD ANESTHESIA: IV anesthesia with monitored anesthesia care. INDICATION: This 57-year-old white male is referred for a colonoscopy because of a history of colon polyps. He says his last colonoscopic exam was done at [facility] in [place], [place]. He is not sure when it was. I counseled him for a colonoscopy with possible biopsy and/or polypectomy, including risks and alternatives, and he gave his informed consent to proceed. DESCRIPTION OF PROCEDURE: The patient was placed in the left lateral decubitus position. IV anesthesia was administered by the Anesthesia Service. Time-out was held. A rectal exam was performed, which was unremarkable. The flexible video Olympus colonoscope was introduced through his anus, up his rectum, and out his colon, all the way to the cecum. En route, in the transverse colon, we saw a large pedunculated polyp. The snare was passed about its base, it was elevated up away from the bowel wall and amputated as electrocautery was applied. In the cecum, we saw a smaller polyp adjacent to the appendiceal orifice. This was removed with the biopsy forceps. The scope was then slowly withdrawn, examining the mucosa throughout. No additional mucosal abnormalities were noted. On the way out, we did grasp the large transverse colon polyp and removed it by aspirating it up on the end of the scope and removing it when the scope was removed. The scope was reintroduced back to the polypectomy site. We did tattoo this area with Cheryl ink, as it was a quite large polyp. The scope was then withdrawn from that site with no other lesions noted. The scope was retroflexed in the rectum with the distal rectum appearing unremarkable. The scope was straightened and removed. He tolerated the procedure well. Bean Zimmerman MD /[id number]
== END 2017-10-05 10:13 | disposition home or self-care (01) ==
LOC: JP.SDS 07:08
PROVIDERS: ATTEND Surgery
DX: Z12.11 Encounter for screening for malignant neoplasm of colon (principal); D12.0 Benign neoplasm of cecum; D12.3 Benign neoplasm of transverse colon; I10 Essential (primary) hypertension; E03.9 Hypothyroidism, unspecified; E66.9 Obesity, unspecified; Z86.010 Personal history of colon polyps
CPT/HCPCS: 88305; J2250; J2543; J2704; J3010; J7120

== ENCOUNTER 2017-12-03 11:59 | Inpatient (IN) | payer MEDICAID ==
[2017-12-03] MEDS ORDERED: Sodium Chloride 0.9% 1,000 ML IV SCH (13:00)
--- NOTE | 2017-12-03 13:01 | EDM.PDOC ---
ED HPI GENERAL MEDICAL PROBLEM - General Chief Complaint: Gastrointestinal Problem Stated Complaint: VOMITING, POSSIBLE BOWEL OBSTRUCTION Time Seen by Provider: 12/03/17 12:50 Source of Information: Reports: Patient, Significant Other (Health Administrator) History Limitations: Reports: No Limitations - History of Present Illness INITIAL COMMENTS - FREE TEXT/NARRATIVE: 57-year-old male who has frequent recurring bowel obstructions in the past due to several abdominal surgeries has had abdominal obstruction symptoms for the past several days. He has persistent emesis whenever he tries to eat, no bowel movement for 5 or 6 days, and is now developed abdominal pain with bloating. Only a low-grade fever 2 days ago, no shortness of breath or cough. He went into the clinic yesterday but was sent home without workup according to the pr specialist. Severity: Moderate Associated Symptoms: Reports: Nausea/Vomiting, Other (Abdominal pain) - Related Data Allergies Allergy/AdvReac Type Severity Reaction Status Date / Time No Known Allergies Allergy Verified 12/03/17 12:16 Home Meds: Home Meds *Antacid Tablets 2 - 4 tab PO Q4HR PRN 04/15/13 [History] *Drysol 1 applic TOP ASDIRECTED 04/15/13 [History] Atenolol 100 mg PO DAILY 04/15/13 [History] Bisacodyl [Biscolax] 10 mg RC BID PRN 04/15/13 [History] Bisacodyl [Laxative] 10 mg PO DAILY 04/15/13 [History] Divalproex Sodium [Divalproex Sodium ER] 1,500 mg PO QPM 04/15/13 [History] Doxazosin Mesylate [Cardura] 4 mg PO DAILY 04/15/13 [History] Famotidine 40 mg PO BID 04/15/13 [History] Haloperidol 10 mg PO BID 04/15/13 [History] Ibuprofen [Motrin] 600 mg PO Q6H PRN 04/15/13 [History] LORazepam [Ativan] 1 mg PO BID 04/15/13 [History] LORazepam [Ativan] 1 mg PO BID PRN 04/15/13 [History] Levothyroxine 88 mcg PO DAILY 04/15/13 [History] Polyethylene Glycol 3350 [MiraLAX] 17 gm PO ASDIRECTED 04/15/13 [History] cloZAPine [Clozapine] 400 mg PO QPM 04/15/13 [History] diphenhydrAMINE [Benadryl] 25 mg PO QAM 04/15/13 [History] diphenhydrAMINE [Benadryl] 100 mg PO QPM 04/15/13 [History] Hypromellose [Systane Gel] 10 gm OP QID 10/06/13 [History] Latanoprost [Xalatan 0.005% Ophth Soln] 2.5 ml OP DAILY 10/06/13 [History] Ibuprofen 600 mg PO Q6HR PRN 10/01/17 [History] Past Medical History - Past Health History Medical/Surgical History: Denies Medical/Surgical History HEENT History: Reports: Glaucoma, Impaired Vision Cardiovascular History: Reports: Hypertension Gastrointestinal History: Reports: Bowel Obstruction, Colon Polyp Musculoskeletal History: Reports: Arthritis Psychiatric History: Reports: Anxiety, Mood Swings, Schizophrenia - Infectious Disease History Infectious Disease History: Reports: Chicken Pox - Past Surgical History Head Surgeries/Procedures: Reports: None HEENT Surgical History: Reports: None Cardiovascular Surgical History: Reports: None GI Surgical History: Reports: Colonoscopy, Small Bowel Musculoskeletal Surgical History: Reports: None Dermatological Surgical History: Reports: None Social & Family History - Family History Family Medical History: Noncontributory - Tobacco Use Smoking Status *Q: Former Smoker Used Tobacco, but Quit: Yes Month/Year Tobacco Last Used: 30 YEARS AGO - Caffeine Use Caffeine Use: Reports: Soda - Recreational Drug Use Recreational Drug Use: No - Living Situation & Occupation Living situation: Reports: Other ED ROS GENERAL - Review of Systems Review Of Systems: See Below Constitutional: Reports: Fever, Malaise HEENT: Reports: No Symptoms Respiratory: Denies: Shortness of Breath Cardiovascular: Denies: Chest Pain GI/Abdominal: Reports: Abdominal Pain, Nausea, Vomiting : Reports: No Symptoms Skin: Reports: Other (Chronic wart of the left eyebrow) ED EXAM, GI/ABD - Physical Exam Exam: See Below Exam Limited By: No Limitations General Appearance: Alert, No Apparent Distress (Looks uncomfortable but not distressed) Eyes: Bilateral: Normal Appearance (No jaundice) Respiratory/Chest: No Respiratory Distress, Lungs Clear Cardiovascular: Regular Rate, Rhythm GI/Abdominal Exam: Tender (Diffuse tenderness, mild distention and decreased bowel sounds) Course - Vital Signs Last Recorded V/S: Last Vital Signs Temp 98.9 F 12/03/17 16:01 Pulse 93 12/03/17 16:01 Resp 16 12/03/17 16:01 BP 124/64 12/03/17 16:01 Pulse Ox 98 12/03/17 16:01 - Orders/Labs/Meds Orders: Active Orders 24 hr Category Date Time Status NG [Gastrointestinal Tube Mgmt] [RC] ASDIRECTED Care 12/03/17 14:51 Active NG [Nasogastric Orogastric Tube Insertion] [OM.PC] Oth 12/03/17 14:51 Ordered Routine Medication Orders Acetaminophen (Tylenol) 650 mg PO Q4H PRN PRN Reason: Pain (Mild 1-3)/fever Acetaminophen (Tylenol) 650 mg RECTAL Q4H PRN PRN Reason: Mild pain/fever Diphenhydramine HCl (Benadryl) 25 mg PO QAM [facility] Diphenhydramine HCl (Benadryl) 100 mg PO QPM [facility] Haloperidol (Haldol) 10 mg PO BID [facility] Hydromorphone HCl (Dilaudid) 0.5 mg IVPUSH Q2H PRN PRN Reason: Pain (severe 7-10) Potassium Chloride/Dextrose/Sod Cl (D5 Ns With 20 Meq Kcl) 1,000 mls @ 100 mls/ hr IV ASDIRECTED [facility] Last Admin: 12/03/17 16:02 Dose: 100 mls/hr Potassium Chloride 20 meq/Lidocaine HCl 2 ml/ Sodium Chloride 112 mls @ 50 mls/ hr IV Q2H [facility] Stop: 12/03/17 17:31 Latanoprost (Xalatan 0.005% Ophth Soln) 2.5 ml EYEBOTH DAILY [facility] Levothyroxine Sodium (Levothyroxine) 88 mcg PO DAILY [facility] Lorazepam (Ativan) 1 mg PO BID [facility] Lorazepam (Ativan) 1 mg PO BID PRN PRN Reason: Anxiety Lorazepam (Ativan) 0.5 - 1 mg IVPUSH Q4H PRN PRN Reason: Nausea/Vomiting Non-Formulary Medication (Atenolol [Atenolol]) 100 mg PO DAILY [facility] Non-Formulary Medication (Clozapine [Clozapine]) 450 mg PO BEDTIME [facility]ILI Non-Formulary Medication (Divalproex Sodium [Divalproex Sodium Er]) 1,500 mg PO QPM [facility] Non-Formulary Medication (Doxazosin Mesylate [Cardura]) 4 mg PO DAILY [facility] Non-Formulary Medication (Famotidine [Famotidine]) 40 mg PO BID [facility] Non-Formulary Medication (Hypromellose [Systane Gel]) 10 gm OP QID [facility] Ondansetron HCl (Zofran Odt) 4 mg PO Q6H PRN PRN Reason: Nausea able to take PO Ondansetron HCl (Zofran) 4 mg IV Q6H PRN PRN Reason: Nausea/Vomiting Labs: Laboratory Tests 12/03/17 12/03/17 Range/Units 13:15 13:15 WBC 5.4 (4.5-11.0) K/uL RBC 4.56 (4.30-5.90) M/uL Hgb 13.1 (12.0-15.0) g/dL Hct 39.4 L (40.0-54.0) % MCV 86 (80-98) fL MCH 29 (27-31) pg MCHC 33 (32-36) % Plt Count 205 (150-400) K/uL Add Manual Diff Yes Neutrophils % (Manual) 42 (36-66) % Band Neutrophils % 2 L (5-11) % Lymphocytes % (Manual) 23 L (24-44) % Monocytes % (Manual) 31 H (2-6) % Sodium 138 L (140-148) mmol/L Potassium 3.5 L (3.6-5.2) mmol/L Chloride 96 L (100-108) mmol/L Carbon Dioxide 35 H (21-32) mmol/L Anion Gap 10.5 (5.0-14.0) mmol/L BUN 32 H D (7-18) mg/dL Creatinine 1.8 H D (0.8-1.3) mg/dL Est Cr Clr Drug Dosing 40.86 mL/min Estimated GFR (MDRD) 39 L (>60) Glucose 101 (74-106) mg/dL Calcium 8.0 L (8.5-10.1) mg/dL Meds: Medications Generic Name Dose Route Start Last Admin Trade Name Freq PRN Reason Stop Dose Admin Acetaminophen 650 mg 12/03/17 15:32 Tylenol PO Q4H PRN Pain (Mild 1-3)/fever Acetaminophen 650 mg 12/03/17 15:32 Tylenol RECTAL Q4H PRN Mild pain/fever Diphenhydramine HCl 25 mg 12/04/17 09:00 Benadryl PO QAM [facility] Diphenhydramine HCl 100 mg 12/03/17 17:00 Benadryl PO QPM [facility] Haloperidol 10 mg 12/03/17 21:00 Haldol PO BID [facility] Hydromorphone HCl 0.5 mg 12/03/17 15:32 Dilaudid IVPUSH Q2H PRN Pain (severe 7-10) Potassium Chloride/Dextrose/Sod Cl 1,000 mls @ 100 mls/hr 12/03/17 15:32 05/13 16:02 D5 Ns With 20 Meq Kcl IV 100 mls/hr ASDIRECTED [facility]I Administration Potassium Chloride 20 meq/ 112 mls @ 50 mls/hr 12/03/17 15:32 Lidocaine HCl 2 ml/ Sodium IV 12/03/17 17:31 Chloride Q2H [facility] Latanoprost 2.5 ml 12/04/17 09:00 Xalatan 0.005% Ophth Soln EYEBOTH DAILY [facility] Levothyroxine Sodium 88 mcg 12/04/17 09:00 Levothyroxine PO DAILY [facility] Lorazepam 1 mg 12/03/17 21:00 Ativan PO BID [facility] Lorazepam 1 mg 12/03/17 15:32 Ativan PO BID PRN Anxiety Lorazepam 0.5 - 1 mg 12/03/17 15:32 Ativan IVPUSH Q4H PRN Nausea/Vomiting Non-Formulary Medication 100 mg 12/04/17 09:00 Atenolol [Atenolol] PO DAILY [facility] Non-Formulary Medication 450 mg 12/03/17 21:00 Clozapine [Clozapine] PO BEDTIME [facility]I Non-Formulary Medication 1,500 mg 12/03/17 17:00 Divalproex Sodium [Divalproex Sodium Er] PO QPM [facility] Non-Formulary Medication 4 mg 12/04/17 09:00 Doxazosin Mesylate [Cardura] PO DAILY [facility] Non-Formulary Medication 40 mg 12/03/17 21:00 Famotidine [Famotidine] PO BID [facility] Non-Formulary Medication 10 gm 12/03/17 16:00 Hypromellose [Systane Gel] OP QID [facility] Ondansetron HCl 4 mg 12/03/17 15:32 Zofran Odt PO Q6H PRN Nausea able to take PO Ondansetron HCl 4 mg 12/03/17 15:32 Zofran IV Q6H PRN Nausea/Vomiting Discontinued Medications Generic Name Dose Route Start Last Admin Trade Name Freq PRN Reason Stop Dose Admin Sodium Chloride 1,000 mls @ 500 mls/hr 12/03/17 13:00 12/03/17 14:06 Normal Saline IV 500 mls/hr ASDIRECTED [facility] Administration - Re-Assessments/Exams Free Text/Narrative Re-Assessment/Exam: 12/03/17 13:01 CBC and BMP will be obtained, normal saline started with the intention of a CT scan to localize the bowel obstruction source and extent. 12/03/17 13:40 CBC was reassuring, creatinine was elevated however at 1.8 and GFR 39, compared to normal levels in the past. A CT scan of the abdomen and pelvis was obtained without contrast due to the renal function levels. This may just be temporary dehydration levels. Departure - Departure Time of Disposition: 15:53 Disposition: Admitted As Inpatient 66 Condition: Fair Clinical Impression: Small bowel obstruction, Abdominal pain - Discharge Information
--- NOTE | 2017-12-03 14:21 | CT ---
Abdomen Pelvis wo Cont INDICATION: abdominal pain, obstruction possible TECHNIQUE: CT images of the abdomen and pelvis obtained without oral or IV contrast. Dosage reduction and iterative reconstruction techniques employed. COMPARISON: 09/16/2015 FINDINGS: Study is Limited without oral or IV contrast. Fatty infiltration of the liver. No gallstones seen. No biliary distention. Spleen and pancreas unre markable. Fatty infiltration of the adrenal glands. No tract calculi or signs of obstruction. Atro phic right kidney unchanged. Multiple loops of dilated fluid and air-filled small bowel with associat ed air-fluid levels in the abdomen consistent with small bowel obstruction. Transition point appears to be in the mid to distal small bowel. Postoperative changes anterior abdominal wall. Large amount o f air and stool throughout the colon which is not significantly dilated. Normal appendix. Abdominal a ten normal caliber. No free air or ascites. Small fat-containing bilateral inguinal hernias. Stomach and duodenum mildly distended. IMPRESSION:. Mid to distal small bowel obstruction.
--- NOTE | 2017-12-03 15:06 | PCM.HP ---
H&P History of Present Illness - General Date of Service: 12/03/17 Admit Problem/Dx: Admission Diagnosis/Problem Admission Diagnosis/Problem Small bowel obstruction Source of Information: Patient, Other ([facility] staff) History Limitations: Reports: No Limitations - History of Present Illness Initial Comments - Free Text/Narative: Tutu presents to the emergency room today from a local retirement with 2 days of progressive abdominal distention and emesis. He was seen in the clinic yesterday and there was some concern for developing bowel obstruction. More aggressive bowel regimen was prescribed but despite this the patient had increasing frequency and quantity of emesis. He has been unable to keep anything down for the past 24 hours. He reports mild crampy lower abdominal pain that radiates throughout the abdomen. Comes and goes in waves without obvious trigger. He hasn't taken anything to make it feel better. No fevers. He is occasionally passing gas but has not had a good bowel movement in 3 days or more. No complaints of fever or shortness of breath. Workup in the emergency room suggested small bowel obstruction based on CT scan imaging. There is evidence for acute kidney injury on laboratory testing. He will be admitted for hydration and further management. NG tube was placed in the emergency room. abdomen Pain Score (Numeric/FACES): 4 - Related Data Allergies/Adverse Reactions: Allergies Allergy/AdvReac Type Severity Reaction Status Date / Time No Known Allergies Allergy Verified 12/03/17 12:16 Home Medications: Home Meds *Antacid Tablets 2 - 4 tab PO Q4HR PRN 04/15/13 [History] *Drysol 1 applic TOP ASDIRECTED 04/15/13 [History] Atenolol 100 mg PO DAILY 04/15/13 [History] Bisacodyl [Biscolax] 10 mg RC BID PRN 04/15/13 [History] Bisacodyl [Laxative] 10 mg PO DAILY 04/15/13 [History] Divalproex Sodium [Divalproex Sodium ER] 1,500 mg PO QPM 04/15/13 [History] Doxazosin Mesylate [Cardura] 4 mg PO DAILY 04/15/13 [History] Famotidine 40 mg PO BID 04/15/13 [History] Haloperidol 10 mg PO BID 04/15/13 [History] Ibuprofen [Motrin] 600 mg PO Q6H PRN 04/15/13 [History] LORazepam [Ativan] 1 mg PO BID 04/15/13 [History] LORazepam [Ativan] 1 mg PO BID PRN 04/15/13 [History] Levothyroxine 88 mcg PO DAILY 04/15/13 [History] Polyethylene Glycol 3350 [MiraLAX] 17 gm PO ASDIRECTED 04/15/13 [History] cloZAPine [Clozapine] 400 mg PO QPM 04/15/13 [History] diphenhydrAMINE [Benadryl] 25 mg PO QAM 04/15/13 [History] diphenhydrAMINE [Benadryl] 100 mg PO QPM 04/15/13 [History] Hypromellose [Systane Gel] 10 gm OP QID 10/06/13 [History] Latanoprost [Xalatan 0.005% Ophth Soln] 2.5 ml OP DAILY 10/06/13 [History] Ibuprofen 600 mg PO Q6HR PRN 10/01/17 [History] Past Medical History - Past Health History Medical/Surgical History: Denies Medical/Surgical History HEENT History: Reports: Glaucoma, Impaired Vision Cardiovascular History: Reports: Hypertension Gastrointestinal History: Reports: Bowel Obstruction, Colon Polyp Musculoskeletal History: Reports: Arthritis Psychiatric History: Reports: Anxiety, Mood Swings, Schizophrenia - Infectious Disease History Infectious Disease History: Reports: Chicken Pox - Past Surgical History Head Surgeries/Procedures: Reports: None HEENT Surgical History: Reports: None Cardiovascular Surgical History: Reports: None GI Surgical History: Reports: Colonoscopy, Small Bowel Musculoskeletal Surgical History: Reports: None Dermatological Surgical History: Reports: None Social & Family History - Family History Family Medical History: Noncontributory - Tobacco Use Smoking Status *Q: Former Smoker Used Tobacco, but Quit: Yes Month/Year Tobacco Last Used: 30 YEARS AGO - Caffeine Use Caffeine Use: Reports: Soda - Recreational Drug Use Recreational Drug Use: No - Living Situation & Occupation Living situation: Reports: Other H&P Review of Systems - Review of Systems: Review Of Systems: See Below Free Text/Narrative: A complete 12 point review of systems was obtained. Pertinent positives and negatives are noted in the history of present illness. All other systems were reviewed and were negative except as noted. Exam - Exam Exam: See Below - Vital Signs Vital Signs: Last Vital Signs Temp 35.5 C 12/03/17 12:30 Pulse 99 12/03/17 12:30 Resp 17 12/03/17 12:30 BP 120/70 12/03/17 12:30 Pulse Ox 97 12/03/17 12:30 Weight: 74.6 kg - Exam Quality Assessment: No: Supplemental Oxygen General: Alert, Oriented, Cooperative, Mild Distress HEENT: Conjunctiva Clear. No: Mucosa Moist & [place], Scleral Icterus Neck: Supple, Trachea Midline. No: Lymphadenopathy Lungs: Clear to Auscultation, Normal Respiratory Effort Cardiovascular: Regular Rate, Regular Rhythm GI/Abdominal Exam: Soft, Distended, Tender. No: Abnormal Bowel Sounds Extremities: No Pedal Edema. No: Increased Warmth Skin: Warm, Dry Neuro Extensive - Mental Status: Alert, Nl Response to Commands Neuro Extensive - Motor, Sensory, Reflexes: No: Dysarthria, Abnormal Motor, Tremor Psychiatric: Alert, Anxious - Patient Data Lab Results Last 24 hrs: Laboratory Results - last 24 hr 12/03/17 12/03/17 Range/Units 13:15 13:15 WBC 5.4 (4.5-11.0) K/uL RBC 4.56 (4.30-5.90) M/uL Hgb 13.1 (12.0-15.0) g/dL Hct 39.4 L (40.0-54.0) % MCV 86 (80-98) fL MCH 29 (27-31) pg MCHC 33 (32-36) % Plt Count 205 (150-400) K/uL Add Manual Diff Yes Neutrophils % (Manual) 42 (36-66) % Band Neutrophils % 2 L (5-11) % Lymphocytes % (Manual) 23 L (24-44) % Monocytes % (Manual) 31 H (2-6) % Sodium 138 L (140-148) mmol/L Potassium 3.5 L (3.6-5.2) mmol/L Chloride 96 L (100-108) mmol/L Carbon Dioxide 35 H (21-32) mmol/L Anion Gap 10.5 (5.0-14.0) mmol/L BUN 32 H D (7-18) mg/dL Creatinine 1.8 H D (0.8-1.3) mg/dL Est Cr Clr Drug Dosing 40.86 mL/min Estimated GFR (MDRD) 39 L (>60) Glucose 101 (74-106) mg/dL Calcium 8.0 L (8.5-10.1) mg/dL Result Diagrams: 12/03/17 13:15 12/03/17 13:15 Imaging Impressions Last 24 hrs: CT abdomen and pelvis - images personally reviewed - there are distended loops of small bowel consistent with small bowel obstruction. No obvious mass. *Q Meaningful Use (ADM) - VTE Risk Assess *Q Each Risk Factor Represents 1 Point: Age 41 - 59 years, Obesity ( BMI > 25 kg/m2 ) Total Score 1 Point Risk Factors: 2 Each Risk Factor Represents 2 Points: None Total Score 2 Point Risk Factors: 0 Each Risk Factor Represents 3 Points: None Total Score 3 Point Risk Factors: 0 Each Risk Factor Represents 5 Points: None Total Score 5 Point Risk Factors: 0 Venous Thromboembolism Risk Factor Score *Q: 2 - Problem List (1) Small bowel obstruction SNOMED Code(s): 566938409 ICD Code: K56.69 - OTHER INTESTINAL OBSTRUCTION * DO NOT USE * Status: Acute Current Visit: Yes (2) Acute kidney injury SNOMED Code(s): 93048661 ICD Code: N17.9 - ACUTE KIDNEY FAILURE, UNSPECIFIED Status: Acute Current Visit: Yes (3) Schizophrenia SNOMED Code(s): 75858102 ICD Code: F20.9 - SCHIZOPHRENIA, UNSPECIFIED Status: Chronic Current Visit: No Qualifiers: Schizophrenia type: unspecified Qualified Code(s): F20.9 - Schizophrenia, unspecified Problem List Initiated/Reviewed/Updated: Yes Orders Last 24hrs: Active Orders 24 hr Category Date Time Status Patient Status Manage Transfer [TRANSFER] Routine ADT 12/03/17 14:52 Ordered NG [Gastrointestinal Tube Mgmt] [RC] ASDIRECTED Care 12/03/17 14:51 Active Sodium Chloride 0.9% [Normal Saline] 1,000 ml Med 12/03/17 13:00 Active IV ASDIRECTED NG [Nasogastric Orogastric Tube Insertion] [OM.PC] Oth 12/03/17 14:51 Ordered Routine Resuscitation Status Routine Resus Stat 12/03/17 14:56 Ordered Medication Orders Sodium Chloride (Normal Saline) 1,000 mls @ 500 mls/hr IV ASDIRECTED [facility]ILI Last Admin: 12/03/17 14:06 Dose: 500 mls/hr Assessment/Plan Comment:: ASSESSMENT AND PLAN - small bowel obstruction - history of previous abdominal surgeries. Evidence for obstruction based on examination and this is compatible with clinical history and examination. He has previously responded to nonsurgical management. NG tube placed in the emergency room. -Continue NG tube drainage -Flat and upright x-ray in the morning -IV fluids -Pain control and nausea management -May clamp NG tube for medications acute kidney injury - likely secondary to dehydration with vomiting and poor intake. -IV fluids profound schizophrenia - patient requires antipsychotic medications as well as mood stabilizers and anti-anxiety medications. Stable at this time with no behavior issues. -Continue home medications, clamp the NG tube as above Maintenance issues - - DVT prophylaxis - mechanical - GI prophylaxis - H2 holden - Nutrition - nothing by mouth - Rodriguez catheter - not indicated CODE STATUS - full code Admission justification - This patient will be admitted for inpatient services and is medically appropriate meeting medical necessity for inpatient admission as outlined in my documentation. I reasonably expect the patient will require inpatient services that span a period time over 2 midnights. I reasonably expect this patient to be discharged or transferred within 96 hours [facility] Disposition - anticipate discharge to retirement after the hospital stay Primary care physician - Rand Nj M.D.
[2017-12-03] MEDS ORDERED: Acetaminophen 325 MG Tab PO PRN (15:32)
[2017-12-03] MEDS ORDERED: Acetaminophen 650 MG Supp RECTAL PRN (15:32)
[2017-12-03] MEDS ORDERED: HYDROmorphone 0.5 MG/0.5 ML Syringe IVPUSH PRN (15:32)
[2017-12-03] MEDS ORDERED: Potassium Chloride 20 MEQ, Lidocaine 1% 2 ML in Sodium Chloride 0.9% 100 ML IV SCH (15:32)
[2017-12-03] MEDS ORDERED: LORazepam 2 MG/ML SDV IVPUSH PRN (15:32)
[2017-12-03] MEDS ORDERED: Ondansetron 4 MG/2 ML SDV IV PRN (15:32)
[2017-12-03] MEDS ORDERED: Ondansetron 4 MG Tab.DIS PO PRN (15:32)
[2017-12-03] MEDS ORDERED: LORazepam 1 MG Tab PO PRN (15:32)
[2017-12-03] MEDS ORDERED: HYPROMELLOSE OP SCH (16:00)
[2017-12-03] MEDS: Dextrose 5%-0.9% NaCl with KCl 1,000 ML IV SCH (16:02)
[2017-12-03] MEDS ORDERED: DIVALPROEX SODIUM 1500 MG PO SCH (17:00)
[2017-12-03] MEDS ORDERED: diphenhydrAMINE 25 MG Cap PO SCH (17:00)
[2017-12-03] MEDS ORDERED: Divalproex Sodium 250 MG Tab.ER PO SCH (17:00)
[2017-12-03] MEDS ORDERED: Potassium Chloride 20 MEQ, Lidocaine 1% 2 ML in Sodium Chloride 0.9% 100 ML IV ONE (17:30)
[2017-12-03] MEDS ORDERED: CLOZAPINE PO SCH (21:00)
[2017-12-03] MEDS ORDERED: Non-Formulary Medication 1 Each (Famotidine [Famotidine] 40 MG) PO SCH (21:00)
[2017-12-03] MEDS: Divalproex Sodium Delayed-Release 250 MG Tab.CR PO SCH (21:10)
[2017-12-03] MEDS: diphenhydrAMINE 25 MG Cap PO SCH (21:10)
[2017-12-03] MEDS: Famotidine 20 MG Tab PO SCH (21:11)
[2017-12-03] MEDS: Haloperidol 5 MG Tab PO SCH (21:11)
[2017-12-03] MEDS: CLOZAPINE 100 MG PO SCH (21:13)
[2017-12-03] MEDS: Latanoprost 0.005% Ophth Soln 2.5 ML Bottle EYEBOTH SCH (21:14)
[2017-12-03] MEDS: HYPROMELLOSE OPTH EYEBOTH SCH (21:14)
[2017-12-03] MEDS: LORazepam 1 MG Tab PO SCH (21:18)
[2017-12-04] MEDS: Dextrose 5%-0.9% NaCl with KCl 1,000 ML IV SCH ×3 (01:16→21:25)
[2017-12-04] MEDS: HYPROMELLOSE OPTH EYEBOTH SCH ×4 (05:29→21:00)
--- NOTE | 2017-12-04 08:46 | CR ---
Abdomen 2V AP Flat Upright INDICATION: f/u obstruction COMPARISON: CT 12/03/2017 FINDINGS: 4 views. NG tube in the proximal stomach. Improvement in small bowel obstructive pattern. Less small bowel dilatation. Large amount of air and stool throughout the colon which is not dilated. No free air. Few scattered air-fluid levels.
[2017-12-04] MEDS: Levothyroxine 88 MCG Tab PO SCH (08:57)
[2017-12-04] MEDS: diphenhydrAMINE 25 MG Cap PO SCH ×2 (08:58→20:59)
[2017-12-04] MEDS: LORazepam 1 MG Tab PO SCH ×2 (08:58→20:58)
[2017-12-04] MEDS: Haloperidol 5 MG Tab PO SCH ×2 (08:59→20:58)
[2017-12-04] MEDS: Doxazosin 4 MG Tab PO SCH (08:59)
[2017-12-04] MEDS: Famotidine 20 MG Tab PO SCH ×2 (08:59→20:59)
--- NOTE | 2017-12-04 08:59 | PCM.PN ---
- General Info Date of Service: 12/04/17 Functional Status: Reports: Pain Controlled - Review of Systems Gastrointestinal: Reports: Abdominal Pain Systems Review Comment:: No acute events overnight. Abdominal pain and distention are slightly better today but still has ongoing brownish colored NG tube output. Seems to be lightening up a little bit. Not passing gas or having bowel movements. Abdominal x-ray suggested ongoing obstruction. Patient has been calm and cooperative with no behavior issues. - Patient Data Vitals - Most Recent: Last Vital Signs Temp 36.6 C 12/04/17 04:00 Pulse 92 12/04/17 04:00 Resp 18 12/04/17 04:00 BP 124/53 L 12/04/17 04:00 Pulse Ox 92 L 12/04/17 04:00 Weight - Most Recent: 74.6 kg I&O - Last 24 Hours: Intake & Output 12/03/17 12/04/17 12/04/17 22:59 06:59 14:59 Intake Total 120 1394 Output Total 800 500 Balance -680 894 Lab Results Last 24 Hours: Laboratory Results - last 24 hr 12/03/17 12/03/17 12/04/17 Range/Units 13:15 13:15 05:49 WBC 5.4 5.7 (4.5-11.0) K/uL RBC 4.56 4.41 (4.30-5.90) M/uL Hgb 13.1 12.3 (12.0-15.0) g/dL Hct 39.4 L 38.6 L (40.0-54.0) % MCV 86 88 (80-98) fL MCH 29 28 (27-31) pg MCHC 33 32 (32-36) % Plt Count 205 180 (150-400) K/uL Add Manual Diff Yes Neutrophils % (Manual) 42 (36-66) % Band Neutrophils % 2 L (5-11) % Lymphocytes % (Manual) 23 L (24-44) % Monocytes % (Manual) 31 H (2-6) % Sodium 138 L (140-148) mmol/L Potassium 3.5 L (3.6-5.2) mmol/L Chloride 96 L (100-108) mmol/L Carbon Dioxide 35 H (21-32) mmol/L Anion Gap 10.5 (5.0-14.0) mmol/L BUN 32 H D (7-18) mg/dL Creatinine 1.8 H D (0.8-1.3) mg/dL Est Cr Clr Drug Dosing 40.86 mL/min Estimated GFR (MDRD) 39 L (>60) Glucose 101 (74-106) mg/dL Calcium 8.0 L (8.5-10.1) mg/dL Magnesium (1.8-2.4) mg/dL 12/04/17 Range/Units 05:49 WBC (4.5-11.0) K/uL RBC (4.30-5.90) M/uL Hgb (12.0-15.0) g/dL Hct (40.0-54.0) % MCV (80-98) fL MCH (27-31) pg MCHC (32-36) % Plt Count (150-400) K/uL Add Manual Diff Neutrophils % (Manual) (36-66) % Band Neutrophils % (5-11) % Lymphocytes % (Manual) (24-44) % Monocytes % (Manual) (2-6) % Sodium 144 (140-148) mmol/L Potassium 3.7 (3.6-5.2) mmol/L Chloride 108 (100-108) mmol/L Carbon Dioxide 31 (21-32) mmol/L Anion Gap 4.8 L (5.0-14.0) mmol/L BUN 15 D (7-18) mg/dL Creatinine 1.2 (0.8-1.3) mg/dL Est Cr Clr Drug Dosing 61.60 mL/min Estimated GFR (MDRD) > 60 (>60) Glucose 115 H (74-106) mg/dL Calcium 7.9 L (8.5-10.1) mg/dL Magnesium 2.1 (1.8-2.4) mg/dL Med Orders - Current: Current Medications Acetaminophen (Tylenol) 650 mg PO Q4H PRN PRN Reason: Pain (Mild 1-3)/fever Acetaminophen (Tylenol) 650 mg RECTAL Q4H PRN PRN Reason: Mild pain/fever Atenolol (Tenormin) 100 mg PO DAILY [facility] Diphenhydramine HCl (Benadryl) 25 mg PO QAM [facility] Diphenhydramine HCl (Benadryl) 100 mg PO BEDTIME [facility] Last Admin: 12/03/17 21:10 Dose: 100 mg Divalproex Sodium (Divalproex Sodium) 1,500 mg PO BEDTIME [facility] Last Admin: 12/03/17 21:10 Dose: 1,500 mg Doxazosin Mesylate (Cardura) 4 mg PO DAILY [facility] Famotidine (Pepcid) 40 mg PO BID [facility] Last Admin: 12/03/17 21:11 Dose: 40 mg Haloperidol (Haldol) 10 mg PO BID [facility] Last Admin: 12/03/17 21:11 Dose: 10 mg Hydromorphone HCl (Dilaudid) 0.5 mg IVPUSH Q2H PRN PRN Reason: Pain (severe 7-10) Potassium Chloride/Dextrose/Sod Cl (D5 Ns With 20 Meq Kcl) 1,000 mls @ 100 mls/ hr IV ASDIRECTED [facility] Last Admin: 12/04/17 01:16 Dose: 100 mls/hr Latanoprost (Xalatan 0.005% Ophth Soln) 0 ml EYEBOTH BEDTIME [facility] Last Admin: 12/03/17 21:14 Dose: 1 drop Levothyroxine Sodium (Synthroid) 88 mcg PO ACBREAKFAST [facility] Lorazepam (Ativan) 1 mg PO BID [facility] Last Admin: 12/03/17 21:18 Dose: 1 mg Lorazepam (Ativan) 1 mg PO BID PRN PRN Reason: Anxiety Lorazepam (Ativan) 0.5 - 1 mg IVPUSH Q4H PRN PRN Reason: Nausea/Vomiting Ondansetron HCl (Zofran Odt) 4 mg PO Q6H PRN PRN Reason: Nausea able to take PO Ondansetron HCl (Zofran) 4 mg IV Q6H PRN PRN Reason: Nausea/Vomiting Clozapine 100mg ( (Ptom)) 0 each PO BEDTIME [facility] Last Admin: 12/03/17 21:13 Dose: 1 each Hypromellose Opth ( (Systane Drops) Ptom) 0 each EYEBOTH QID [facility] Last Admin: 12/04/17 05:29 Dose: 1 each Discontinued Medications Sodium Chloride (Normal Saline) 1,000 mls @ 500 mls/hr IV ASDIRECTED [facility] Last Admin: 12/03/17 14:06 Dose: 500 mls/hr Potassium Chloride 20 meq/Lidocaine HCl 2 ml/ Sodium Chloride 112 mls @ 56 mls/ hr IV ONETIME ONE Stop: 12/03/17 19:29 Last Admin: 12/03/17 17:27 Dose: 56 mls/hr Non-Formulary Medication (Atenolol [Atenolol]) 100 mg PO DAILY [facility] Non-Formulary Medication (Clozapine [Clozapine]) 450 mg PO BEDTIME [facility] Non-Formulary Medication (Divalproex Sodium [Divalproex Sodium Er]) 1,500 mg PO QPM [facility] Non-Formulary Medication (Doxazosin Mesylate [Cardura]) 4 mg PO DAILY [facility] Non-Formulary Medication (Famotidine [Famotidine]) 40 mg PO BID [facility] - Exam Quality Assessment: No: Supplemental Oxygen General: Alert, Cooperative, No Acute Distress Neck: Supple Lungs: Normal Respiratory Effort GI/Abdominal Exam: Soft, Distended, Tender, Abnormal Bowel Sounds (hypoactive) Extremities: No Pedal Edema Psy/Mental Status: Alert. No: Anxious - Problem List & Annotations (1) Small bowel obstruction SNOMED Code(s): 990784565 Code(s): K56.69 - OTHER INTESTINAL OBSTRUCTION * DO NOT USE * Status: Acute Current Visit: Yes (2) Acute kidney injury SNOMED Code(s): 18420748 Code(s): N17.9 - ACUTE KIDNEY FAILURE, UNSPECIFIED Status: Acute Current Visit: Yes (3) Schizophrenia SNOMED Code(s): 33340982 Code(s): F20.9 - SCHIZOPHRENIA, UNSPECIFIED Status: Chronic Current Visit : No Qualifiers: Schizophrenia type: unspecified Qualified Code(s): F20.9 - Schizophrenia, unspecified - Problem List Review Problem List Initiated/Reviewed/Updated: Yes - My Orders Last 24 Hours: My Active Orders 12/03/17 14:51 NG [Gastrointestinal Tube Mgmt] [RC] Q6H NG [Nasogastric Orogastric Tube Insertion] [OM.PC] Routine 12/03/17 14:56 Resuscitation Status Routine 12/03/17 15:32 Patient Status [ADT] Routine Communication Order [RC] ROUTINE Intake and Output [RC] QSHIFT Notify Provider Vital Signs [RC] ASDIRECTED Oxygen Therapy [RC] PRN Up With Assistance [RC] ASDIRECTED Vital Signs [RC] Q4H Acetaminophen [Tylenol] 650 mg PO Q4H PRN Acetaminophen [Tylenol] 650 mg RECTAL Q4H PRN Dextrose 5%-0.9% NaCl with KCl [D5 NS with 20 mEq KCl] 1,000 ml IV ASDIRECTED HYDROmorphone [Dilaudid] 0.5 mg IVPUSH Q2H PRN LORazepam [Ativan] 0.5 - 1 mg IVPUSH Q4H PRN LORazepam [Ativan] 1 mg PO BID PRN Ondansetron [Zofran ODT] 4 mg PO Q6H PRN Ondansetron [Zofran] 4 mg IV Q6H PRN Sequential Compression Device [OM.PC] Per Unit Routine 12/03/17 21:00 Divalproex Sodium 1,500 mg PO BEDTIME Famotidine [Pepcid] 40 mg PO BID Haloperidol [Haldol] 10 mg PO BID LORazepam [Ativan] 1 mg PO BID Latanoprost [Xalatan 0.005% Ophth Soln] 0 ml EYEBOTH BEDTIME Patient's Own Medication [Ptom] 0 each PO BEDTIME diphenhydrAMINE [Benadryl] 100 mg PO BEDTIME 12/03/17 22:00 Patient's Own Medication [Ptom] 0 each EYEBOTH QID 12/03/17 Dinner Nothing per Oral Now Diet [DIET] 12/04/17 07:30 Levothyroxine [Synthroid] 88 mcg PO ACBREAKFAST 12/04/17 09:00 Atenolol [Tenormin] 100 mg PO DAILY Doxazosin [Cardura] 4 mg PO DAILY diphenhydrAMINE [Benadryl] 25 mg PO QAM 12/05/17 05:00 Abdomen 2V AP Flat Upright [CR] DAILY BASIC METABOLIC PANEL,BMP [CHEM] Timed CBC W/O DIFF,HEMOGRAM [HEME] Timed (1) - Plan Plan:: ASSESSMENT AND PLAN - small bowel obstruction - history of previous abdominal surgeries. Ongoing evidence for obstruction and NG tube drainage. Abdominal pain is a little better. -Continue NG tube drainage -Flat and upright x-ray in the morning -IV fluids -Pain control and nausea management -May clamp NG tube for medications -Consider surgical consultation if not getting better or if he gets worse acute kidney injury - likely secondary to dehydration with vomiting and poor intake. Kidney function improving with hydration. -IV fluids profound schizophrenia - patient requires antipsychotic medications as well as mood stabilizers and anti-anxiety medications. Stable at this time with no behavior issues. -Continue home medications, clamp the NG tube as above Maintenance issues - - DVT prophylaxis - mechanical - GI prophylaxis - H2 holden - Nutrition - nothing by mouth - Rodriguez catheter - not indicated Disposition - anticipate discharge to care home after the hospital stay Farhan Nj M.D.
[2017-12-04] MEDS: Atenolol 50 MG Tab PO SCH (09:00)
[2017-12-04] MEDS ORDERED: Non-Formulary Medication 1 Each (Atenolol [Atenolol] 100 MG) PO SCH (09:00)
[2017-12-04] MEDS ORDERED: Latanoprost 0.005% Ophth Soln 2.5 ML Bottle EYEBOTH SCH (09:00)
[2017-12-04] MEDS ORDERED: DOXAZOSIN MESYLATE 4 MG PO SCH (09:00)
[2017-12-04] MEDS ORDERED: Levothyroxine 75 MCG Tab PO SCH (09:00)
[2017-12-04] MEDS: Divalproex Sodium Delayed-Release 250 MG Tab.CR PO SCH (20:58)
[2017-12-04] MEDS: CLOZAPINE 100 MG PO SCH (20:58)
[2017-12-04] MEDS: Latanoprost 0.005% Ophth Soln 2.5 ML Bottle EYEBOTH SCH (20:59)
[2017-12-05] MEDS: HYPROMELLOSE OPTH EYEBOTH SCH ×4 (06:21→21:22)
[2017-12-05] MEDS: Levothyroxine 88 MCG Tab PO SCH (07:12)
[2017-12-05] MEDS: Dextrose 5%-0.9% NaCl with KCl 1,000 ML IV SCH (07:44)
[2017-12-05] MEDS: LORazepam 1 MG Tab PO SCH ×2 (08:06→21:13)
[2017-12-05] MEDS: diphenhydrAMINE 25 MG Cap PO SCH ×2 (08:06→21:06)
[2017-12-05] MEDS: Atenolol 50 MG Tab PO SCH (08:07)
[2017-12-05] MEDS: Doxazosin 4 MG Tab PO SCH (08:07)
[2017-12-05] MEDS: Famotidine 20 MG Tab PO SCH ×2 (08:07→21:15)
[2017-12-05] MEDS: Haloperidol 5 MG Tab PO SCH ×2 (08:07→21:06)
--- NOTE | 2017-12-05 09:33 | PCM.PN ---
- General Info Date of Service: 12/05/17 Functional Status: Reports: Pain Controlled - Review of Systems General: Reports: Fever, Weakness Gastrointestinal: Reports: Abdominal Pain, Flatus Systems Review Comment:: No acute events overnight. Patient has been passing gas and did have a bowel movement after receiving a suppository. Chest x-ray had been showing improvement in his obstruction. Appetite is returning. He did have a fever yesterday but remained hemodynamically stable. No significant behavior issues. Patient is weak and requires assistance to get out of bed. - Patient Data Vitals - Most Recent: Last Vital Signs Temp 38.3 C H 12/05/17 07:00 Pulse 100 12/05/17 08:07 Resp 18 12/05/17 07:00 BP 129/80 12/05/17 08:07 Pulse Ox 91 L 12/05/17 07:00 Weight - Most Recent: 74.6 kg I&O - Last 24 Hours: Intake & Output 12/04/17 12/05/17 12/05/17 22:59 06:59 14:59 Intake Total 1410 Output Total 900 450 75 Balance 510 -450 -75 Lab Results Last 24 Hours: Laboratory Results - last 24 hr 12/05/17 12/05/17 Range/Units 05:33 05:33 WBC 8.6 (4.5-11.0) K/uL RBC 4.36 (4.30-5.90) M/uL Hgb 12.3 (12.0-15.0) g/dL Hct 38.7 L (40.0-54.0) % MCV 89 (80-98) fL MCH 28 (27-31) pg MCHC 32 (32-36) % Plt Count 170 (150-400) K/uL Sodium 146 (140-148) mmol/L Potassium 4.1 (3.6-5.2) mmol/L Chloride 112 H (100-108) mmol/L Carbon Dioxide 27 (21-32) mmol/L Anion Gap 11.1 (5.0-14.0) mmol/L BUN 9 (7-18) mg/dL Creatinine 1.1 (0.8-1.3) mg/dL Est Cr Clr Drug Dosing 67.20 mL/min Estimated GFR (MDRD) > 60 (>60) Glucose 116 H (74-106) mg/dL Calcium 7.9 L (8.5-10.1) mg/dL Med Orders - Current: Current Medications Acetaminophen (Tylenol) 650 mg PO Q4H PRN PRN Reason: Pain (Mild 1-3)/fever Last Admin: 12/04/17 22:50 Dose: 650 mg Acetaminophen (Tylenol) 650 mg RECTAL Q4H PRN PRN Reason: Mild pain/fever Atenolol (Tenormin) 100 mg PO DAILY [facility] Last Admin: 12/05/17 08:07 Dose: 100 mg Diphenhydramine HCl (Benadryl) 25 mg PO QAM [facility] Last Admin: 12/05/17 08:06 Dose: 25 mg Diphenhydramine HCl (Benadryl) 100 mg PO BEDTIME [facility] Last Admin: 12/04/17 20:59 Dose: 100 mg Divalproex Sodium (Divalproex Sodium) 1,500 mg PO BEDTIME [facility] Last Admin: 12/04/17 20:58 Dose: 1,500 mg Doxazosin Mesylate (Cardura) 4 mg PO DAILY [facility] Last Admin: 12/05/17 08:07 Dose: 4 mg Famotidine (Pepcid) 40 mg PO BID [facility] Last Admin: 12/05/17 08:07 Dose: 40 mg Haloperidol (Haldol) 10 mg PO BID [facility] Last Admin: 12/05/17 08:07 Dose: 10 mg Hydromorphone HCl (Dilaudid) 0.5 mg IVPUSH Q2H PRN PRN Reason: Pain (severe 7-10) Potassium Chloride/Dextrose/Sod Cl (D5 Ns With 20 Meq Kcl) 1,000 mls @ 100 mls/ hr IV ASDIRECTED [facility] Last Admin: 12/05/17 07:44 Dose: 100 mls/hr Latanoprost (Xalatan 0.005% Ophth Soln) 0 ml EYEBOTH BEDTIME [facility] Last Admin: 12/04/17 20:59 Dose: 1 drop Levothyroxine Sodium (Synthroid) 88 mcg PO ACBREAKFAST [facility] Last Admin: 12/05/17 07:12 Dose: 88 mcg Lorazepam (Ativan) 1 mg PO BID [facility] Last Admin: 12/05/17 08:06 Dose: 1 mg Lorazepam (Ativan) 1 mg PO BID PRN PRN Reason: Anxiety Lorazepam (Ativan) 0.5 - 1 mg IVPUSH Q4H PRN PRN Reason: Nausea/Vomiting Ondansetron HCl (Zofran Odt) 4 mg PO Q6H PRN PRN Reason: Nausea able to take PO Ondansetron HCl (Zofran) 4 mg IV Q6H PRN PRN Reason: Nausea/Vomiting Clozapine 100mg ( (Ptom)) 0 each PO BEDTIME [facility] Last Admin: 12/04/17 20:58 Dose: 1 each Hypromellose Opth ( (Systane Drops) Ptom) 0 each EYEBOTH QID [facility] Last Admin: 12/05/17 06:21 Dose: 1 each Discontinued Medications Sodium Chloride (Normal Saline) 1,000 mls @ 500 mls/hr IV ASDIRECTED [facility] Last Admin: 12/03/17 14:06 Dose: 500 mls/hr Potassium Chloride 20 meq/Lidocaine HCl 2 ml/ Sodium Chloride 112 mls @ 56 mls/ hr IV ONETIME ONE Stop: 12/03/17 19:29 Last Admin: 12/03/17 17:27 Dose: 56 mls/hr Non-Formulary Medication (Atenolol [Atenolol]) 100 mg PO DAILY [facility] Non-Formulary Medication (Clozapine [Clozapine]) 450 mg PO BEDTIME [facility] Non-Formulary Medication (Divalproex Sodium [Divalproex Sodium Er]) 1,500 mg PO QPM [facility] Non-Formulary Medication (Doxazosin Mesylate [Cardura]) 4 mg PO DAILY [facility] Non-Formulary Medication (Famotidine [Famotidine]) 40 mg PO BID [facility] - Exam Quality Assessment: No: Supplemental Oxygen General: Alert, Oriented, Cooperative, No Acute Distress HEENT: Other (NG in place) Neck: Supple Lungs: Clear to Auscultation, Normal Respiratory Effort Cardiovascular: Regular Rate, Regular Rhythm GI/Abdominal Exam: Soft, Distended, Tender, Abnormal Bowel Sounds (hypoactive) Extremities: No Pedal Edema Psy/Mental Status: Alert, Anxious - Problem List & Annotations (1) Small bowel obstruction SNOMED Code(s): 159229035 Code(s): K56.69 - OTHER INTESTINAL OBSTRUCTION * DO NOT USE * Status: Acute Current Visit: Yes (2) Acute kidney injury SNOMED Code(s): 01284402 Code(s): N17.9 - ACUTE KIDNEY FAILURE, UNSPECIFIED Status: Acute Current Visit: Yes (3) Schizophrenia SNOMED Code(s): 43970045 Code(s): F20.9 - SCHIZOPHRENIA, UNSPECIFIED Status: Chronic Current Visit : No Qualifiers: Schizophrenia type: unspecified Qualified Code(s): F20.9 - Schizophrenia, unspecified - Problem List Review Problem List Initiated/Reviewed/Updated: Yes - My Orders Last 24 Hours: My Active Orders 12/04/17 09:00 Atenolol [Tenormin] 100 mg PO DAILY Doxazosin [Cardura] 4 mg PO DAILY diphenhydrAMINE [Benadryl] 25 mg PO QAM 12/05/17 05:00 Abdomen 2V AP Flat Upright [CR] DAILY 12/05/17 09:31 Bisacodyl [Dulcolax] 10 mg RECTAL ONETIME ONE 12/06/17 05:00 Abdomen 2V AP Flat Upright [CR] DAILY BASIC METABOLIC PANEL,BMP [CHEM] Timed CBC W/O DIFF,HEMOGRAM [HEME] Timed (1) - Plan Plan:: ASSESSMENT AND PLAN - Small bowel obstruction - history of previous abdominal surgeries. Abdominal x- ray looks better today. Minimal NG tube output. Did have a bowel movement this morning. -remove NG tube -saline lock IV -Pain control and nausea management -resume bowel meds Acute kidney injury - likely secondary to dehydration with vomiting and poor intake. Kidney function improving with hydration. -IV fluids Profound schizophrenia - patient requires antipsychotic medications as well as mood stabilizers and anti-anxiety medications. Stable at this time with no behavior issues. -Continue home medications Maintenance issues - - DVT prophylaxis - mechanical - GI prophylaxis - H2 holden - Nutrition - trial of clear liquids - Rodriguez catheter - not indicated Disposition - anticipate discharge to [facility] after the hospital stay Farhan Nj M.D.
[2017-12-05] MEDS ORDERED: Bisacodyl 10 MG Supp RECTAL ONE (10:00)
[2017-12-05] MEDS: Divalproex Sodium Delayed-Release 250 MG Tab.CR PO SCH (21:15)
[2017-12-05] MEDS: CLOZAPINE 100 MG PO SCH (21:21)
[2017-12-05] MEDS: Latanoprost 0.005% Ophth Soln 2.5 ML Bottle EYEBOTH SCH (21:22)
[2017-12-06] MEDS: LORazepam 1 MG Tab PO SCH ×2 (08:12→20:12)
[2017-12-06] MEDS: HYPROMELLOSE OPTH EYEBOTH SCH ×4 (08:12→23:14)
[2017-12-06] MEDS: Levothyroxine 88 MCG Tab PO SCH (08:12)
[2017-12-06] MEDS: diphenhydrAMINE 25 MG Cap PO SCH ×2 (08:13→20:13)
[2017-12-06] MEDS: Doxazosin 4 MG Tab PO SCH (08:14)
[2017-12-06] MEDS: Haloperidol 5 MG Tab PO SCH ×2 (08:14→20:16)
[2017-12-06] MEDS: Famotidine 20 MG Tab PO SCH ×2 (08:15→20:17)
[2017-12-06] MEDS: Atenolol 50 MG Tab PO SCH (08:15)
[2017-12-06] MEDS: Polyethylene Glycol 3350 Powder 17 GM Packet PO SCH (09:46)
--- NOTE | 2017-12-06 12:17 | PCM.PN ---
- General Info Date of Service: 12/06/17 Functional Status: Reports: Pain Controlled, Tolerating Diet - Review of Systems General: Denies: Fever Gastrointestinal: Reports: Vomiting. Denies: Abdominal Pain Systems Review Comment:: no acute events overnight. Tolerated clear liquids and will be advanced to full liquids at lunch time. He had a large bowel movement yesterday afternoon. No complaints of nausea or abdominal pain. He does report that he feels weak and unsafe on his feet at this time. He has not had any more fevers. Repeat x-ray this morning showed apparent resolution of this obstruction. - Patient Data Vitals - Most Recent: Last Vital Signs Temp 36.4 C 12/06/17 11:02 Pulse 84 12/06/17 11:02 Resp 17 12/06/17 11:02 BP 136/72 12/06/17 11:02 Pulse Ox 93 L 12/06/17 11:02 Weight - Most Recent: 74.6 kg I&O - Last 24 Hours: Intake & Output 12/05/17 12/06/17 12/06/17 22:59 06:59 14:59 Intake Total 2970 Output Total 250 Balance 2720 Lab Results Last 24 Hours: Laboratory Results - last 24 hr 12/06/17 12/06/17 Range/Units 05:24 05:24 WBC 11.6 H (4.5-11.0) K/uL RBC 4.32 (4.30-5.90) M/uL Hgb 12.1 (12.0-15.0) g/dL Hct 37.9 L (40.0-54.0) % MCV 88 (80-98) fL MCH 28 (27-31) pg MCHC 32 (32-36) % Plt Count 195 (150-400) K/uL Sodium 143 (140-148) mmol/L Potassium 3.8 (3.6-5.2) mmol/L Chloride 107 (100-108) mmol/L Carbon Dioxide 29 (21-32) mmol/L Anion Gap 7.5 (5.0-14.0) mmol/L BUN 7 (7-18) mg/dL Creatinine 1.0 (0.8-1.3) mg/dL Est Cr Clr Drug Dosing 73.92 mL/min Estimated GFR (MDRD) > 60 (>60) Glucose 86 (74-106) mg/dL Calcium 8.2 L (8.5-10.1) mg/dL Med Orders - Current: Current Medications Acetaminophen (Tylenol) 650 mg PO Q4H PRN PRN Reason: Pain (Mild 1-3)/fever Last Admin: 12/04/17 22:50 Dose: 650 mg Acetaminophen (Tylenol) 650 mg RECTAL Q4H PRN PRN Reason: Mild pain/fever Atenolol (Tenormin) 100 mg PO DAILY [facility] Last Admin: 12/06/17 08:15 Dose: 100 mg Diphenhydramine HCl (Benadryl) 25 mg PO QAM [facility] Last Admin: 12/06/17 08:13 Dose: 25 mg Diphenhydramine HCl (Benadryl) 100 mg PO BEDTIME [facility] Last Admin: 12/05/17 21:06 Dose: 100 mg Divalproex Sodium (Divalproex Sodium) 1,500 mg PO BEDTIME [facility] Last Admin: 12/05/17 21:15 Dose: 1,500 mg Doxazosin Mesylate (Cardura) 4 mg PO DAILY [facility] Last Admin: 12/06/17 08:14 Dose: 4 mg Famotidine (Pepcid) 40 mg PO BID [facility] Last Admin: 12/06/17 08:15 Dose: 40 mg Haloperidol (Haldol) 10 mg PO BID [facility] Last Admin: 12/06/17 08:14 Dose: 10 mg Hydromorphone HCl (Dilaudid) 0.5 mg IVPUSH Q2H PRN PRN Reason: Pain (severe 7-10) Latanoprost (Xalatan 0.005% Ophth Soln) 0 ml EYEBOTH BEDTIME [facility] Last Admin: 12/05/17 21:22 Dose: 1 drop Levothyroxine Sodium (Synthroid) 88 mcg PO ACBREAKFAST [facility] Last Admin: 12/06/17 08:12 Dose: 88 mcg Lorazepam (Ativan) 1 mg PO BID [facility] Last Admin: 12/06/17 08:12 Dose: 1 mg Lorazepam (Ativan) 1 mg PO BID PRN PRN Reason: Anxiety Lorazepam (Ativan) 0.5 - 1 mg IVPUSH Q4H PRN PRN Reason: Nausea/Vomiting Ondansetron HCl (Zofran Odt) 4 mg PO Q6H PRN PRN Reason: Nausea able to take PO Ondansetron HCl (Zofran) 4 mg IV Q6H PRN PRN Reason: Nausea/Vomiting Clozapine 100mg ( (Ptom)) 0 each PO BEDTIME [facility] Last Admin: 12/05/17 21:21 Dose: 1 each Hypromellose Opth ( (Systane Drops) Ptom) 0 each EYEBOTH QID [facility] Last Admin: 12/06/17 09:46 Dose: 1 each Polyethylene Glycol (Miralax) 17 gm PO DAILY [facility] Last Admin: 12/06/17 09:46 Dose: 17 gm Discontinued Medications Bisacodyl (Dulcolax) 10 mg RECTAL ONETIME ONE Stop: 12/05/17 10:01 Last Admin: 12/05/17 10:19 Dose: 10 mg Sodium Chloride (Normal Saline) 1,000 mls @ 500 mls/hr IV ASDIRECTED [facility] Last Admin: 12/03/17 14:06 Dose: 500 mls/hr Potassium Chloride/Dextrose/Sod Cl (D5 Ns With 20 Meq Kcl) 1,000 mls @ 100 mls/ hr IV ASDIRECTED [facility] Last Admin: 12/05/17 07:44 Dose: 100 mls/hr Potassium Chloride 20 meq/Lidocaine HCl 2 ml/ Sodium Chloride 112 mls @ 56 mls/ hr IV ONETIME ONE Stop: 12/03/17 19:29 Last Admin: 12/03/17 17:27 Dose: 56 mls/hr Non-Formulary Medication (Atenolol [Atenolol]) 100 mg PO DAILY [facility] Non-Formulary Medication (Clozapine [Clozapine]) 450 mg PO BEDTIME [facility] Non-Formulary Medication (Divalproex Sodium [Divalproex Sodium Er]) 1,500 mg PO QPM [facility] Non-Formulary Medication (Doxazosin Mesylate [Cardura]) 4 mg PO DAILY [facility] Non-Formulary Medication (Famotidine [Famotidine]) 40 mg PO BID [facility] - Exam Quality Assessment: No: Supplemental Oxygen General: Alert, Oriented, Cooperative, No Acute Distress Neck: Supple Lungs: Normal Respiratory Effort Cardiovascular: Regular Rate, Regular Rhythm GI/Abdominal Exam: Soft, No Distention Extremities: No Pedal Edema Psy/Mental Status: Alert. No: Anxious - Problem List & Annotations (1) Small bowel obstruction SNOMED Code(s): 105191293 Code(s): K56.69 - OTHER INTESTINAL OBSTRUCTION * DO NOT USE * Status: Acute Current Visit: Yes (2) Acute kidney injury SNOMED Code(s): 51133656 Code(s): N17.9 - ACUTE KIDNEY FAILURE, UNSPECIFIED Status: Acute Current Visit: Yes (3) Schizophrenia SNOMED Code(s): 10867768 Code(s): F20.9 - SCHIZOPHRENIA, UNSPECIFIED Status: Chronic Current Visit : No Qualifiers: Schizophrenia type: unspecified Qualified Code(s): F20.9 - Schizophrenia, unspecified - Problem List Review Problem List Initiated/Reviewed/Updated: Yes - My Orders Last 24 Hours: My Active Orders 12/05/17 14:41 Convert IV to Saline Lock [OM.PC] Routine 12/06/17 05:00 Abdomen 2V AP Flat Upright [CR] DAILY 12/06/17 09:15 Polyethylene Glycol 3350 [MiraLAX] 17 gm PO DAILY 12/06/17 Lunch Full Liquid Diet [DIET] 12/07/17 07:00 PT Evaluation and Treatment [CONS] Routine 12/07/17 Breakfast GI Soft Low Fiber [Soft Diet] [DIET] - Plan Plan:: ASSESSMENT AND PLAN - Small bowel obstruction - seems to have resolved. Patient has been having bowel movements and is tolerating clear liquids. He is weak from his vomiting and poor nutrition. -saline lock IV -Pain control and nausea management -resume bowel meds -full liquids today, advance to GI/low residual diet tomorrow morning -Physical therapy for weakness Acute kidney injury - likely secondary to dehydration with vomiting and poor intake. Kidney function improving with hydration. -encourage oral intake Profound schizophrenia - patient requires antipsychotic medications as well as mood stabilizers and anti-anxiety medications. Stable at this time with no behavior issues. -Continue home medications Maintenance issues - - DVT prophylaxis - mechanical - GI prophylaxis - H2 holden - Nutrition - full liquids today - Rodriguez catheter - not indicated Disposition - anticipate discharge to [facility] after the hospital stay, likely tomorrow Farhan Nj M.D.
[2017-12-06] MEDS: CLOZAPINE 100 MG PO SCH (20:18)
[2017-12-06] MEDS: Divalproex Sodium Delayed-Release 250 MG Tab.CR PO SCH (20:19)
[2017-12-06] MEDS: Latanoprost 0.005% Ophth Soln 2.5 ML Bottle EYEBOTH SCH (20:20)
[2017-12-07] MEDS: LORazepam 1 MG Tab PO SCH (08:21)
[2017-12-07] MEDS: HYPROMELLOSE OPTH EYEBOTH SCH ×2 (08:22→12:52)
[2017-12-07] MEDS: Levothyroxine 88 MCG Tab PO SCH (08:23)
[2017-12-07] MEDS: Famotidine 20 MG Tab PO SCH (08:23)
[2017-12-07] MEDS: diphenhydrAMINE 25 MG Cap PO SCH (08:23)
[2017-12-07] MEDS: Haloperidol 5 MG Tab PO SCH (08:23)
[2017-12-07] MEDS: Polyethylene Glycol 3350 Powder 17 GM Packet PO SCH (08:23)
[2017-12-07] MEDS: Doxazosin 4 MG Tab PO SCH (08:24)
[2017-12-07] MEDS: Atenolol 50 MG Tab PO SCH (08:24)
--- NOTE | 2017-12-07 09:45 | CR ---
2 view abdomen Comparison: Previous day. There is a nasogastric tube positioned within the stomach. There is no large or small bowel distentio n. There is moderate stool throughout the colon. There is no free air. Impression: 1. Interval placement of nasogastric tube. No evidence for distention. 3. Moderate colonic stool.
--- NOTE | 2017-12-07 09:47 | CR ---
2 view abdomen Comparison: Previous day. There has been interval removal of the nasogastric tube. There is no large or small bowel distention. There is moderate stool within the colon. Impression: 1. Interval removal of the nasogastric tube. There are no findings of obstruction.
--- NOTE | 2017-12-07 10:35 | PCM.DCSUM1 ---
Discharge Summary - Hospital Course Brief History: Mr. Perez is a 57-year-old gentleman who was admitted through the emergency department with nausea, vomiting, dehydration, secondary to a mechanical bowel obstruction. - Discharge Data Discharge Date: 12/07/17 Discharge Disposition: DC/Tfer to [facility] [id number] Condition: Fair - Discharge Diagnosis/Problem(s) (1) Abdominal pain SNOMED Code(s): 31204591 ICD Code: R10.9 - UNSPECIFIED ABDOMINAL PAIN Status: Acute Current Visit : Yes (2) Acute kidney injury SNOMED Code(s): 27356077 ICD Code: N17.9 - ACUTE KIDNEY FAILURE, UNSPECIFIED Status: Acute Current Visit: Yes (3) Small bowel obstruction SNOMED Code(s): 821295004 ICD Code: K56.69 - OTHER INTESTINAL OBSTRUCTION * DO NOT USE * Status: Acute Current Visit: Yes (4) Schizophrenia SNOMED Code(s): 10274420 ICD Code: F20.9 - SCHIZOPHRENIA, UNSPECIFIED Status: Chronic Current Visit: No Qualifiers: Schizophrenia type: unspecified Qualified Code(s): F20.9 - Schizophrenia, unspecified - Patient Summary/Data Consults: Consultations 12/07/17 07:00 PT Evaluation and Treatment [CONS] Routine Please Evaluate and Treat. PT Reason for Consult: Strengthening This query below is only for informational purposes and is not editable. Admission Diagnosis/Problem: Small bowel obstruction Hospital Course: Tutu presented to the emergency room from a local [facility] with 2 days of progressive abdominal distention and emesis. He was seen in the clinic on the day prior to admission and there was some concern for developing bowel obstruction. More aggressive bowel regimen was prescribed but despite this the patient had increasing frequency and quantity of emesis. He has been unable to keep anything down for the past 24 hours. He reports mild crampy lower abdominal pain that radiates throughout the abdomen. Comes and goes in waves without obvious trigger. He hasn't taken anything to make it feel better. No fevers. He has occasionally passing gas but has not had a good bowel movement in 3 days or more. No complaints of fever or shortness of breath. Workup in the emergency room suggested small bowel obstruction based on CT scan imaging. There is evidence for acute kidney injury on laboratory testing. He was admitted for hydration and further management. NG tube was placed in the emergency room. After admission he was kept nothing by mouth, NG output slowly decreased and he started to pass some gas and then stool. NG tube was removed, initially started on a liquid diet which was then advanced to a regular diet prior to discharge. He tolerated this well without significant difficulty and will be discharged back to his [facility]. He was noted to have acute kidney injury likely secondary to intravascular volume depletion at the time of admission, renal function had returned to baseline after hydration with IV fluids. Activity will be as tolerated and he will be on a soft low residue diet which he should continue indefinitely. Follow-up appointment will be scheduled with his primary care provider within one week. - Patient Instructions Diet: GI Soft/Low Residue/Low Fiber Activity: As Tolerated Other/Special Instructions: Please schedule follow-up appointment with primary care provider within one week. - Discharge Plan Home Medications: Home Meds *Antacid Tablets 2 - 4 tab PO Q4HR PRN 04/15/13 [History] *Drysol 1 applic TOP ASDIRECTED 04/15/13 [History] Atenolol 100 mg PO DAILY 04/15/13 [History] Bisacodyl [Biscolax] 10 mg RC BID PRN 04/15/13 [History] Bisacodyl [Laxative] 10 mg PO DAILY 04/15/13 [History] Doxazosin Mesylate [Cardura] 4 mg PO DAILY 04/15/13 [History] Famotidine 40 mg PO BID 04/15/13 [History] Haloperidol 10 mg PO BID 04/15/13 [History] Ibuprofen [Motrin] 600 mg PO Q6H PRN 04/15/13 [History] LORazepam [Ativan] 1 mg PO BID 04/15/13 [History] LORazepam [Ativan] 1 mg PO BID PRN 04/15/13 [History] Polyethylene Glycol 3350 [MiraLAX] 17 gm PO ASDIRECTED 04/15/13 [History] cloZAPine [Clozapine] 400 mg PO QPM 04/15/13 [History] diphenhydrAMINE [Benadryl] 25 mg PO QAM 04/15/13 [History] diphenhydrAMINE [Benadryl] 100 mg PO QPM 04/15/13 [History] Hypromellose [Systane Gel] 10 gm OP QID 10/06/13 [History] Latanoprost [Xalatan 0.005% Ophth Soln] 2.5 ml OP DAILY 10/06/13 [History] Ibuprofen 600 mg PO Q6HR PRN 10/01/17 [History] Divalproex Sodium 1,500 mg PO BEDTIME 12/03/17 [History] Levothyroxine [Synthroid] 88 mcg PO ACBREAKFAST 12/03/17 [History] Referrals: Shari Smith PA [Primary Care Provider] - - Discharge Summary/Plan Comment DC Time >30 min.: No - Patient Data Vitals - Most Recent: Last Vital Signs Temp 98.1 F 12/07/17 07:00 Pulse 80 12/07/17 08:24 Resp 18 12/07/17 07:00 BP 145/86 H 12/07/17 08:24 Pulse Ox 90 L 12/07/17 07:00 Weight - Most Recent: 164 lb 7.437 oz Med Orders - Current: Current Medications Acetaminophen (Tylenol) 650 mg PO Q4H PRN PRN Reason: Pain (Mild 1-3)/fever Last Admin: 12/04/17 22:50 Dose: 650 mg Acetaminophen (Tylenol) 650 mg RECTAL Q4H PRN PRN Reason: Mild pain/fever Atenolol (Tenormin) 100 mg PO DAILY [facility] Last Admin: 12/07/17 08:24 Dose: 100 mg Diphenhydramine HCl (Benadryl) 25 mg PO QAM [facility] Last Admin: 12/07/17 08:23 Dose: 25 mg Diphenhydramine HCl (Benadryl) 100 mg PO BEDTIME [facility] Last Admin: 12/06/17 20:13 Dose: 100 mg Divalproex Sodium (Divalproex Sodium) 1,500 mg PO BEDTIME [facility] Last Admin: 12/06/17 20:19 Dose: 1,500 mg Doxazosin Mesylate (Cardura) 4 mg PO DAILY [facility] Last Admin: 12/07/17 08:24 Dose: 4 mg Famotidine (Pepcid) 40 mg PO BID [facility] Last Admin: 12/07/17 08:23 Dose: 40 mg Haloperidol (Haldol) 10 mg PO BID [facility] Last Admin: 12/07/17 08:23 Dose: 10 mg Hydromorphone HCl (Dilaudid) 0.5 mg IVPUSH Q2H PRN PRN Reason: Pain (severe 7-10) Latanoprost (Xalatan 0.005% Ophth Soln) 0 ml EYEBOTH BEDTIME [facility] Last Admin: 12/06/17 20:20 Dose: 1 drop Levothyroxine Sodium (Synthroid) 88 mcg PO ACBREAKFAST [facility] Last Admin: 12/07/17 08:23 Dose: 88 mcg Lorazepam (Ativan) 1 mg PO BID [facility] Last Admin: 12/07/17 08:21 Dose: 1 mg Lorazepam (Ativan) 1 mg PO BID PRN PRN Reason: Anxiety Lorazepam (Ativan) 0.5 - 1 mg IVPUSH Q4H PRN PRN Reason: Nausea/Vomiting Ondansetron HCl (Zofran Odt) 4 mg PO Q6H PRN PRN Reason: Nausea able to take PO Ondansetron HCl (Zofran) 4 mg IV Q6H PRN PRN Reason: Nausea/Vomiting Clozapine 100mg ( (Ptom)) 0 each PO BEDTIME [facility] Last Admin: 12/06/17 20:18 Dose: 1 each Hypromellose Opth ( (Systane Drops) Ptom) 0 each EYEBOTH QID [facility] Last Admin: 12/07/17 08:22 Dose: 1 each Polyethylene Glycol (Miralax) 17 gm PO DAILY [facility] Last Admin: 12/07/17 08:23 Dose: 17 gm Discontinued Medications Bisacodyl (Dulcolax) 10 mg RECTAL ONETIME ONE Stop: 12/05/17 10:01 Last Admin: 12/05/17 10:19 Dose: 10 mg Sodium Chloride (Normal Saline) 1,000 mls @ 500 mls/hr IV ASDIRECTED [facility] Last Admin: 12/03/17 14:06 Dose: 500 mls/hr Potassium Chloride/Dextrose/Sod Cl (D5 Ns With 20 Meq Kcl) 1,000 mls @ 100 mls/ hr IV ASDIRECTED [facility] Last Admin: 12/05/17 07:44 Dose: 100 mls/hr Potassium Chloride 20 meq/Lidocaine HCl 2 ml/ Sodium Chloride 112 mls @ 56 mls/ hr IV ONETIME ONE Stop: 12/03/17 19:29 Last Admin: 12/03/17 17:27 Dose: 56 mls/hr Non-Formulary Medication (Atenolol [Atenolol]) 100 mg PO DAILY [facility] Non-Formulary Medication (Clozapine [Clozapine]) 450 mg PO BEDTIME [facility] Non-Formulary Medication (Divalproex Sodium [Divalproex Sodium Er]) 1,500 mg PO QPM [facility] Non-Formulary Medication (Doxazosin Mesylate [Cardura]) 4 mg PO DAILY [facility] Non-Formulary Medication (Famotidine [Famotidine]) 40 mg PO BID [facility] - Exam General: Reports: Alert, Cooperative Lungs: Reports: Clear to Auscultation, Normal Respiratory Effort Cardiovascular: Reports: Regular Rate, Regular Rhythm, No Murmurs GI/Abdominal Exam: Normal Bowel Sounds, Soft, Non-Tender, No Organomegaly, No Distention
[2017-12-07 11:44] VITALS: BP 148/88
== END 2017-12-07 13:34 | DRG 389 ==
LOC: JP.ED 11:59 → JP.ICU 14:52 → JP.MS 12-05 14:56
PROVIDERS: ADMIT Internal Medicine; ATTEND Internal Medicine
DX: K56.609 Unspecified intestinal obstruction, unspecified as to partial versus complete obstruction (principal); N17.9 Acute kidney failure, unspecified; E86.0 Dehydration; I10 Essential (primary) hypertension; H40.9 Unspecified glaucoma; M19.90 Unspecified osteoarthritis, unspecified site; F20.9 Schizophrenia, unspecified; F41.9 Anxiety disorder, unspecified; Z87.891 Personal history of nicotine dependence
CPT/HCPCS: 36415; 74019; 74019-26; 74176; 74176-26; 80048; 83735; 85025; 85027; 96360; 99284; 99285-25; A9270-GY; J3480; J7030; J7040

== ENCOUNTER 2019-03-08 09:23 | Inpatient (IN) | payer MEDICAID ==
--- NOTE | 2019-03-08 09:50 | EDM.PDOC ---
ED HPI GENERAL MEDICAL PROBLEM - General Chief Complaint: Gastrointestinal Problem Stated Complaint: SENT FROM CLINIC, WEAKNESS, VOMITING,DIARRHEA Time Seen by Provider: 03/08/19 09:40 Source of Information: Reports: Provider, Other (History is given by the terminal superintendent at the long-term) - History of Present Illness INITIAL COMMENTS - FREE TEXT/NARRATIVE: 58-year-old male with chronic schizophrenia, chronic abdominal pain past history of bowel obstructions presents with 3 days of diarrhea, nausea and vomiting, likely abdominal distention and pain. No fevers or chills. He is becoming more weak over the past 1-2 days. He normally transfers himself to the bathroom but over the past day has just been having diarrhea in his depends. They figured he should be checked out so went into the clinic, they brought him directly to the emergency room, no formal evaluation or triage done at the clinic. He presents very weak appearing but opens his eyes to voice. Onset: Gradual (Over the past 3 days) Associated Symptoms: Reports: Malaise, Nausea/Vomiting, Weakness, Other ( Diarrhea). Denies: Fever/Chills - Related Data Allergies Allergy/AdvReac Type Severity Reaction Status Date / Time No Known Allergies Allergy Verified 05/28/18 13:05 Home Meds: Home Meds *Antacid Tablets 2 - 4 tab PO Q4HR PRN 04/15/13 [History] Atenolol 100 mg PO DAILY 04/15/13 [History] Bisacodyl [Biscolax] 10 mg RC DAILY 04/15/13 [History] Bisacodyl [Laxative] 10 mg PO DAILY 04/15/13 [History] Doxazosin Mesylate [Cardura] 4 mg PO DAILY 04/15/13 [History] Famotidine 40 mg PO BID 04/15/13 [History] Haloperidol 10 mg PO BID 04/15/13 [History] Ibuprofen [Motrin] 600 mg PO Q6H PRN 04/15/13 [History] LORazepam [Ativan] 1 mg PO BID 04/15/13 [History] LORazepam [Ativan] 1 mg PO BID PRN 04/15/13 [History] Polyethylene Glycol 3350 [MiraLAX] 17 gm PO ASDIRECTED 04/15/13 [History] cloZAPine [Clozapine] 450 mg PO QPM 04/15/13 [History] diphenhydrAMINE [Benadryl] 25 mg PO QAM 04/15/13 [History] diphenhydrAMINE [Benadryl] 100 mg PO QPM 04/15/13 [History] Latanoprost [Xalatan 0.005% Ophth Soln] 1 drop OP DAILY 10/06/13 [History] Ibuprofen 600 mg PO Q6HR PRN 10/01/17 [History] Divalproex Sodium 1,500 mg PO BEDTIME 12/03/17 [History] Levothyroxine [Synthroid] 88 mcg PO ACBREAKFAST 12/03/17 [History] Sodium Chloride 5% [Joseph 128 5% Ophth Soln] 1 drop EYEBOTH QID 12/07/17 [History ] Sennosides/Docusate Sodium [Senna-S] 1 each PO DAILY 03/08/19 [History] Past Medical History - Past Health History Medical/Surgical History: Denies Medical/Surgical History HEENT History: Reports: Glaucoma, Impaired Vision Cardiovascular History: Reports: Hypertension Gastrointestinal History: Reports: Bowel Obstruction, Colon Polyp Musculoskeletal History: Reports: Arthritis Psychiatric History: Reports: Anxiety, Mood Swings, Schizophrenia Endocrine/Metabolic History: Reports: Hypothyroidism - Infectious Disease History Infectious Disease History: Reports: Chicken Pox - Past Surgical History Head Surgeries/Procedures: Reports: None HEENT Surgical History: Reports: None Cardiovascular Surgical History: Reports: None GI Surgical History: Reports: Colonoscopy, Small Bowel Endocrine Surgical History: Reports: None Musculoskeletal Surgical History: Reports: None Dermatological Surgical History: Reports: None Social & Family History - Family History Family Medical History: Noncontributory - Tobacco Use Smoking Status *Q: Never Smoker - Caffeine Use Caffeine Use: Reports: Soda - Living Situation & Occupation Living situation: Reports: Other ED ROS GENERAL - Review of Systems Review Of Systems: See Below Constitutional: Reports: Malaise, Decreased Appetite. Denies: Fever, Chills HEENT: Reports: No Symptoms Respiratory: Denies: Shortness of Breath Cardiovascular: Denies: Chest Pain GI/Abdominal: Reports: Abdominal Pain, Diarrhea, Decreased Appetite, Nausea, Vomiting. Denies: Hematemesis, Hematochezia : Reports: Incontinence (Patient is become incontinent of stool and urine due to weakness) Skin: Denies: Jaundice, Pallor Neurological: Denies: Headache Psychiatric: Reports: Other (Chronic schizophrenia, depression) ED EXAM, GI/ABD - Physical Exam Exam: See Below Exam Limited By: Other (Patient is very fatigued, slow to respond) General Appearance: Lethargic Eyes: Bilateral: Normal Appearance (No jaundice) Head: Atraumatic Respiratory/Chest: No Respiratory Distress, Lungs Clear Cardiovascular: Regular Rate, Rhythm. No: Tachycardia GI/Abdominal Exam: Other (Hypoactive bowel sounds, diffuse tenderness to palpation and distention is present) Extremities: No Pedal Edema Neurological: Inattentive, Slow to Respond Skin Exam: Warm, Dry Course - Vital Signs Last Recorded V/S: Last Vital Signs Temp 96 F 03/08/19 09:43 Pulse 91 03/08/19 11:12 Resp 16 03/08/19 09:43 BP 108/72 03/08/19 11:12 Pulse Ox 97 03/08/19 11:12 - Orders/Labs/Meds Orders: Active Orders 24 hr Category Date Time Status NG [Gastrointestinal Tube Mgmt] [RC] ASDIRECTED Care 03/08/19 11:52 Active Ampicillin/Sulbactam Na [Unasyn] 1.5 gm Med 03/08/19 12:00 Active Sodium Chloride 0.9% [Normal Saline] 50 ml IV Q6H Aztreonam [Azactam] 1 gm Med 03/08/19 12:00 Active Sodium Chloride 0.9% [Normal Saline] 50 ml IV Q12H Lactated Ringers [Ringers, Lactated] 1,000 ml Med 03/08/19 12:00 Active IV ASDIRECTED Sodium Chloride 0.9% [Normal Saline] 1,000 ml Med 03/08/19 10:00 Active IV ASDIRECTED NG [Nasogastric Orogastric Tube Insertion] [OM.PC] Oth 03/08/19 11:52 Ordered Routine Medication Orders Ropivacaine 36 ml/Dexamethasone 8 mg/Epinephrine HCl 0.4 mg/ Sodium Chloride 41.6 ml 0 ml NERVRT ASDIRECTED [facility] Sodium Chloride (Normal Saline) 1,000 mls @ 1,000 mls/hr IV ASDIRECTED [facility] Last Admin: 03/08/19 10:02 Dose: 1,000 mls/hr Ampicillin Sodium/Sulbactam (Sodium 1.5 gm/ Sodium Chloride) 50 mls @ 100 mls/ hr IV Q6H [facility] Last Admin: 03/08/19 13:30 Dose: 100 mls/hr Aztreonam 1 gm/ Sodium (Chloride) 50 mls @ 100 mls/hr IV Q12H [facility] Last Admin: 03/08/19 13:30 Dose: 100 mls/hr Lactated Ringer's (Ringers, Lactated) 1,000 mls @ 150 mls/hr IV ASDIRECTED [facility] Last Admin: 03/08/19 13:31 Dose: 150 mls/hr Labs: Laboratory Tests 03/08/19 03/08/19 03/08/19 Range/Units 09:58 09:58 09:58 WBC 9.5 (4.5-11.0) K/uL RBC 4.73 (4.30-5.90) M/uL Hgb 13.9 D (12.0-15.0) g/dL Hct 41.3 (40.0-54.0) % MCV 87 (80-98) fL MCH 29 (27-31) pg MCHC 34 (32-36) % Plt Count 310 (150-400) K/uL Add Manual Diff Yes Neutrophils % (Manual) 63 (36-66) % Band Neutrophils % 3 L (5-11) % Lymphocytes % (Manual) 14 L (24-44) % Monocytes % (Manual) 19 H (2-6) % Eosinophils % (Manual) 1 L (2-4) % Sodium 133 L (140-148) mmol/L Potassium 3.0 L (3.6-5.2) mmol/L Chloride 85 L (100-108) mmol/L Carbon Dioxide 35 H (21-32) mmol/L Anion Gap 16.0 H (5.0-14.0) mmol/L BUN 57 H D (7-18) mg/dL Creatinine 3.7 H* D (0.8-1.3) mg/dL Est Cr Clr Drug Dosing 18.22 mL/min Estimated GFR (MDRD) 17 L (>60) Glucose 120 H (74-106) mg/dL Lactic Acid (0.4-2.0) mmol/L Calcium 8.2 L (8.5-10.1) mg/dL Total Bilirubin 0.4 (0.2-1.0) mg/dL AST 20 (15-37) U/L ALT 21 (12-78) U/L Alkaline Phosphatase 75 (46-116) U/L Total Protein 6.5 (6.4-8.2) g/dL Albumin 3.1 L (3.4-5.0) g/dL Globulin 3.4 (2.3-3.5) g/dL Albumin/Globulin Ratio 0.9 L (1.2-2.2) Amylase 20 L (25-115) U/L Lipase 86 (73-393) U/L 03/08/19 Range/Units 09:58 WBC (4.5-11.0) K/uL RBC (4.30-5.90) M/uL Hgb (12.0-15.0) g/dL Hct (40.0-54.0) % MCV (80-98) fL MCH (27-31) pg MCHC (32-36) % Plt Count (150-400) K/uL Add Manual Diff Neutrophils % (Manual) (36-66) % Band Neutrophils % (5-11) % Lymphocytes % (Manual) (24-44) % Monocytes % (Manual) (2-6) % Eosinophils % (Manual) (2-4) % Sodium (140-148) mmol/L Potassium (3.6-5.2) mmol/L Chloride (100-108) mmol/L Carbon Dioxide (21-32) mmol/L Anion Gap (5.0-14.0) mmol/L BUN (7-18) mg/dL Creatinine (0.8-1.3) mg/dL Est Cr Clr Drug Dosing mL/min Estimated GFR (MDRD) (>60) Glucose (74-106) mg/dL Lactic Acid 3.8 H (0.4-2.0) mmol/L Calcium (8.5-10.1) mg/dL Total Bilirubin (0.2-1.0) mg/dL AST (15-37) U/L ALT (12-78) U/L Alkaline Phosphatase (46-116) U/L Total Protein (6.4-8.2) g/dL Albumin (3.4-5.0) g/dL Globulin (2.3-3.5) g/dL Albumin/Globulin Ratio (1.2-2.2) Amylase (25-115) U/L Lipase (73-393) U/L Meds: Medications Generic Name Dose Route Start Last Admin Trade Name Freq PRN Reason Stop Dose Admin Ropivacaine 36 ml/ 0 ml 03/08/19 13:30 Dexamethasone 8 mg/ NERVRT Epinephrine HCl 0.4 mg/ Sodium ASDIRECTED [facility] Chloride 41.6 ml Sodium Chloride 1,000 mls @ 1,000 mls/hr 03/08/19 10:00 03/08/19 10:02 Normal Saline IV 1,000 mls/hr ASDIRECTED [facility] Administration Ampicillin Sodium/Sulbactam 50 mls @ 100 mls/hr 03/08/19 12:00 03/08/19 13:30 Sodium 1.5 gm/ Sodium Chloride IV 100 mls/hr Q6H [facility] Administration Aztreonam 1 gm/ Sodium 50 mls @ 100 mls/hr 03/08/19 12:00 03/08/19 13:30 Chloride IV 100 mls/hr Q12H [facility] Administration Lactated Ringer's 1,000 mls @ 150 mls/hr 03/08/19 12:00 03/08/19 13:31 Ringers, Lactated IV 150 mls/hr ASDIRECTED [facility] Administration Discontinued Medications Generic Name Dose Route Start Last Admin Trade Name Joseq PRN Reason Stop Dose Admin Dexamethasone Confirm 03/08/19 12:17 Dexamethasone Administered 03/08/19 12:18 Dose 4 mg .ROUTE .STK-MED ONE Fentanyl Confirm 03/08/19 12:18 Sublimaze Administered 03/08/19 12:19 Dose 250 mcg .ROUTE .STK-MED ONE Glycopyrrolate Confirm 03/08/19 12:17 Robinul Administered 03/08/19 12:18 Dose 1 mg .ROUTE .STK-MED ONE Meropenem Confirm 03/08/19 12:04 Merrem Administered 03/08/19 12:05 Dose 500 mg .ROUTE .STK-MED ONE Neostigmine Methylsulfate Confirm 03/08/19 12:17 Neostigmine Administered 03/08/19 12:18 Dose 5 mg .ROUTE .STK-MED ONE Ondansetron HCl Confirm 03/08/19 12:17 Zofran Administered 03/08/19 12:18 Dose 4 mg .ROUTE .STK-MED ONE Propofol Confirm 03/08/19 12:17 Diprivan 20 Ml Administered 03/08/19 12:18 Dose 200 mg .ROUTE .STK-MED ONE Rocuronium Pierce Confirm 03/08/19 12:17 Zemuron Administered 03/08/19 12:18 Dose 50 mg .ROUTE .STK-MED ONE Succinylcholine Chloride Confirm 03/08/19 12:17 Quelicin Administered 03/08/19 12:18 Dose 200 mg .ROUTE .STK-MED ONE - Re-Assessments/Exams Free Text/Narrative Re-Assessment/Exam: 03/08/19 10:45 An IV was started, fluid boluses initiated with normal saline and a CBC, CMP, amylase and lipase were obtained. Patient will likely need a CT the abdomen to rule out partial bowel obstruction. 03/08/19 11:29 White count and hemoglobin are normal, however electrolytes are markedly abnormal. Potassium is 3.0, creatinine is 3.7 and lactic acid 3.8. GFR is only 17. CT scan shows large loops of dilated small bowel and distended stomach indicating bowel obstruction. This was discussed with Dr. Nj of the hospitalist service and he agreed to see the patient to consider admission. Formal CT report is still pending. Departure - Departure Time of Disposition: 13:42 Disposition: Admitted As Inpatient 66 Clinical Impression: Small bowel obstruction - Discharge Information - My Orders Last 24 Hours: My Active Orders 03/08/19 10:00 Sodium Chloride 0.9% [Normal Saline] 1,000 ml IV ASDIRECTED - Assessment/Plan Last 24 Hours: My Active Orders 03/08/19 10:00 Sodium Chloride 0.9% [Normal Saline] 1,000 ml IV ASDIRECTED
[2019-03-08] MEDS ORDERED: Sodium Chloride 0.9% 1,000 ML IV SCH (10:00)
--- NOTE | 2019-03-08 11:49 | CRLCT ---
TECHNIQUE: CT abdomen pelvis without intravenous contrast. INDICATION: Abdominal pain and distention. COMPARISON: 05/28/2018. FINDINGS: Small bilateral pleural effusions. Bibasilar atelectasis/consolidation, left greater than right. Liver, gallbladder, spleen, pancreas are unremarkable. Fatty infiltration of the adrenal glands is again noted. No obstructing renal calculus or hydronephrosis. Urinary bladder is distended, with multiple diverticula. Mild distal esophageal wall thickening. No lymphadenopathy in the abdomen or pelvis. Abdominal aorta is normal in caliber. Markedly dilated small bowel loops including the duodenum and proximal jejunum, with transition point in the jejunum consistent with small bowel obstruction. Pneumatosis in the small bowel, and in the ascending colon raising the possibility of ischemia. Appendix is normal in diameter. Trace ascites. Fat containing inguinal hernias. IMPRESSION: 1. Small-bowel obstruction with transition point in the mid abdomen/jejunum. 2. Pneumatosis raising the possibility of ischemia. 3. Small bilateral pleural effusions and bibasilar atelectasis/consolidation. 4. Trace free fluid. 5. Mild distal esophageal wall thickening, could be due to reflux esophagitis. Findings discussed with Dr. Stallworth via phone 11:45 a.m. on 03/08/2019. Please note that all CT scans at this facility use dose modulation, iterative reconstruction, and/or weight-based dosing when appropriate to reduce radiation dose to as low as reasonably achievable. Dictated by Bernardo Deleon MD @ Mar 08 2019 11:34AM Signed by Dr. Bernardo Deleon @ Mar 08 2019 11:48AM
[2019-03-08] MEDS ORDERED: Ampicillin/Sulbactam Na 1.5 GM in Sodium Chloride 0.9% 50 ML IV SCH (12:00)
[2019-03-08] MEDS ORDERED: Lactated Ringers 1,000 ML IV SCH (12:00)
[2019-03-08] MEDS ORDERED: Meropenem 500 MG SDV ONE (12:04)
[2019-03-08] MEDS ORDERED: Glycopyrrolate 0.2 MG/ML 5 ML MDV ONE (12:17)
[2019-03-08] MEDS ORDERED: Rocuronium 50 MG/5 ML Vial ONE (12:17)
[2019-03-08] MEDS ORDERED: Ondansetron 4 MG/2 ML SDV ONE (12:17)
[2019-03-08] MEDS ORDERED: Propofol 200 MG/20 ML SDV ONE (12:17)
[2019-03-08] MEDS ORDERED: Succinylcholine 200 MG/10 ML MDV ONE (12:17)
[2019-03-08] MEDS ORDERED: Dexamethasone 4 MG/ML SDV ONE (12:17)
[2019-03-08] MEDS ORDERED: Neostigmine Methylsulfate 1 MG/ML 5 ML Syringe ONE (12:17)
[2019-03-08] MEDS ORDERED: fentaNYL 250 MCG/5 ML SDV ONE (12:18)
[2019-03-08] MEDS ORDERED: Ropivacaine 36 ML, dexAMETHasone 8 MG, EPINEPHrine 0.4 MG, Sodium Chloride 0.9% 41.6 ML NERVRT SCH ×4 (13:30)
[2019-03-08] MEDS ORDERED: Lactated Ringers 1,000 ML ONE (15:15)
[2019-03-08] MEDS ORDERED: Naloxone 0.4 MG/ML SDV IVPUSH PRN (15:45)
[2019-03-08] MEDS ORDERED: diphenhydrAMINE 50 MG/ML SDV IVPUSH PRN (15:45)
[2019-03-08] MEDS ORDERED: Ondansetron 4 MG/2 ML SDV IVPUSH PRN (15:45)
[2019-03-08] MEDS ORDERED: diphenhydrAMINE 25 MG Cap PO PRN (15:45)
[2019-03-08] MEDS ORDERED: Naloxone 0.4 MG/ML SDV IV PRN (16:47)
[2019-03-08] MEDS: HYDROmorphone/Normal Saline 15 MG/30 ML PCA IV PRN (16:52)
[2019-03-08] MEDS: Lactated Ringers 1,000 ML IV SCH (16:53)
[2019-03-08] MEDS: Dextrose 5%-Lactated Ringers 1,000 ML IV SCH (16:53)
[2019-03-08] MEDS ORDERED: Acetaminophen 325 MG Tab PO PRN (17:27)
[2019-03-08] MEDS ORDERED: Pantoprazole 40 MG Vial IV SCH (17:27)
[2019-03-08] MEDS ORDERED: Acetaminophen 650 MG Supp RECTAL PRN (17:27)
[2019-03-08] MEDS ORDERED: Ondansetron 4 MG/2 ML SDV IV PRN (17:27)
[2019-03-08] MEDS ORDERED: Ondansetron 4 MG Tab.DIS PO PRN (17:27)
[2019-03-08] MEDS ORDERED: Morphine 2 MG/ML Syringe IVPUSH PRN (17:27)
[2019-03-08] MEDS: Metoprolol Tartrate 5 MG/5 ML SDV IV SCH (18:09)
[2019-03-08] MEDS: Pantoprazole 40 MG Vial IV SCH (18:11)
[2019-03-08] MEDS: Ampicillin/Sulbactam Na 3 GM in Sodium Chloride 0.9% 100 ML IV SCH (18:12)
[2019-03-08] MEDS: LORazepam 2 MG/ML SDV IVPUSH SCH (20:50)
[2019-03-08] MEDS: Haloperidol Lactate 5 MG/ML SDV IVPUSH SCH (20:51)
[2019-03-08] MEDS: Latanoprost 0.005% Ophth Soln 2.5 ML Bottle EYEBOTH SCH (22:31)
[2019-03-08] MEDS: Sodium Chloride 5% Ophth Soln 15 ML Bottle EYEBOTH SCH (22:31)
[2019-03-09] MEDS: Ampicillin/Sulbactam Na 3 GM in Sodium Chloride 0.9% 100 ML IV SCH ×5 (00:02→23:50)
[2019-03-09] MEDS: Metoprolol Tartrate 5 MG/5 ML SDV IV SCH ×5 (00:06→23:40)
[2019-03-09] MEDS: Dextrose 5%-Lactated Ringers 1,000 ML IV SCH (02:51)
[2019-03-09] MEDS: Lactated Ringers 1,000 ML IV SCH (03:26)
[2019-03-09] MEDS: Sodium Chloride 5% Ophth Soln 15 ML Bottle EYEBOTH SCH ×4 (06:19→21:16)
[2019-03-09] MEDS: Haloperidol Lactate 5 MG/ML SDV IVPUSH SCH ×2 (09:06→21:10)
[2019-03-09] MEDS: LORazepam 2 MG/ML SDV IVPUSH SCH ×2 (09:09→21:10)
--- NOTE | 2019-03-09 09:19 | PCM.PN ---
- General Info Date of Service: 03/09/19 Subjective Update: Patient has been very lethargic overnight following his exploratory laparotomy with small bowel resection and right colectomy. He is able to muster a weak cough at best. He is unable to provide any reliable history this morning because of his somnolence and lethargy. He has not had any fevers. Urine output has been borderline. Kidney function is better today. - Review of Systems General: Denies: Fever - Patient Data Vitals - Most Recent: Last Vital Signs Temp 36.3 C 03/09/19 05:48 Pulse 96 03/09/19 05:48 Resp 10 L 03/09/19 05:48 BP 141/83 H 03/09/19 05:48 Pulse Ox 92 L 03/09/19 05:48 Weight - Most Recent: 73.028 kg I&O - Last 24 Hours: Intake & Output 03/08/19 03/09/19 03/09/19 22:59 06:59 14:59 Intake Total 406 2622 Output Total 590 1290 150 Balance -184 1332 -150 Lab Results Last 24 Hours: Laboratory Results - last 24 hr 03/08/19 03/08/19 03/08/19 Range/Units 09:58 09:58 09:58 WBC 9.5 (4.5-11.0) K/uL RBC 4.73 (4.30-5.90) M/uL Hgb 13.9 D (12.0-15.0) g/dL Hct 41.3 (40.0-54.0) % MCV 87 (80-98) fL MCH 29 (27-31) pg MCHC 34 (32-36) % Plt Count 310 (150-400) K/uL Add Manual Diff Yes Neutrophils % (Manual) 63 (36-66) % Band Neutrophils % 3 L (5-11) % Lymphocytes % (Manual) 14 L (24-44) % Monocytes % (Manual) 19 H (2-6) % Eosinophils % (Manual) 1 L (2-4) % Blast Cells % % Sodium 133 L (140-148) mmol/L Potassium 3.0 L (3.6-5.2) mmol/L Chloride 85 L (100-108) mmol/L Carbon Dioxide 35 H (21-32) mmol/L Anion Gap 16.0 H (5.0-14.0) mmol/L BUN 57 H D (7-18) mg/dL Creatinine 3.7 H* D (0.8-1.3) mg/dL Est Cr Clr Drug Dosing 18.22 mL/min Estimated GFR (MDRD) 17 L (>60) Glucose 120 H (74-106) mg/dL Lactic Acid (0.4-2.0) mmol/L Calcium 8.2 L (8.5-10.1) mg/dL Phosphorus (2.5-4.9) mg/dL Magnesium (1.8-2.4) mg/dL Total Bilirubin 0.4 (0.2-1.0) mg/dL AST 20 (15-37) U/L ALT 21 (12-78) U/L Alkaline Phosphatase 75 (46-116) U/L NT-Pro-B Natriuret Pep (5-125) pg/mL Total Protein 6.5 (6.4-8.2) g/dL Albumin 3.1 L (3.4-5.0) g/dL Globulin 3.4 (2.3-3.5) g/dL Albumin/Globulin Ratio 0.9 L (1.2-2.2) Amylase 20 L (25-115) U/L Lipase 86 (73-393) U/L TSH, Ultra Sensitive (0.358-3.740) uIU/mL 03/08/19 03/09/19 03/09/19 Range/Units 09:58 04:00 04:00 WBC 10.4 (4.5-11.0) K/uL RBC 4.40 (4.30-5.90) M/uL Hgb 12.9 (12.0-15.0) g/dL Hct 38.5 L (40.0-54.0) % MCV 88 (80-98) fL MCH 29 (27-31) pg MCHC 34 (32-36) % Plt Count 203 (150-400) K/uL Add Manual Diff Yes Neutrophils % (Manual) 57 (36-66) % Band Neutrophils % 22 H (5-11) % Lymphocytes % (Manual) 9 L (24-44) % Monocytes % (Manual) 9 H (2-6) % Eosinophils % (Manual) (2-4) % Blast Cells % 3 % Sodium 135 L (140-148) mmol/L Potassium 3.3 L (3.6-5.2) mmol/L Chloride 94 L (100-108) mmol/L Carbon Dioxide 35 H (21-32) mmol/L Anion Gap 9.3 (5.0-14.0) mmol/L BUN 44 H (7-18) mg/dL Creatinine 2.3 H (0.8-1.3) mg/dL Est Cr Clr Drug Dosing 29.31 mL/min Estimated GFR (MDRD) 29 L (>60) Glucose 178 H (74-106) mg/dL Lactic Acid 3.8 H (0.4-2.0) mmol/L Calcium 7.7 L (8.5-10.1) mg/dL Phosphorus 5.7 H (2.5-4.9) mg/dL Magnesium (1.8-2.4) mg/dL Total Bilirubin 0.2 (0.2-1.0) mg/dL AST 23 (15-37) U/L ALT 18 (12-78) U/L Alkaline Phosphatase 51 (46-116) U/L NT-Pro-B Natriuret Pep 596 H (5-125) pg/mL Total Protein 4.7 L (6.4-8.2) g/dL Albumin 2.0 L (3.4-5.0) g/dL Globulin 2.7 (2.3-3.5) g/dL Albumin/Globulin Ratio 0.7 L (1.2-2.2) Amylase (25-115) U/L Lipase (73-393) U/L TSH, Ultra Sensitive 2.137 (0.358-3.740) uIU/mL 03/09/19 Range/Units 04:00 WBC (4.5-11.0) K/uL RBC (4.30-5.90) M/uL Hgb (12.0-15.0) g/dL Hct (40.0-54.0) % MCV (80-98) fL MCH (27-31) pg MCHC (32-36) % Plt Count (150-400) K/uL Add Manual Diff Neutrophils % (Manual) (36-66) % Band Neutrophils % (5-11) % Lymphocytes % (Manual) (24-44) % Monocytes % (Manual) (2-6) % Eosinophils % (Manual) (2-4) % Blast Cells % % Sodium (140-148) mmol/L Potassium (3.6-5.2) mmol/L Chloride (100-108) mmol/L Carbon Dioxide (21-32) mmol/L Anion Gap (5.0-14.0) mmol/L BUN (7-18) mg/dL Creatinine (0.8-1.3) mg/dL Est Cr Clr Drug Dosing mL/min Estimated GFR (MDRD) (>60) Glucose (74-106) mg/dL Lactic Acid (0.4-2.0) mmol/L Calcium (8.5-10.1) mg/dL Phosphorus (2.5-4.9) mg/dL Magnesium 2.1 (1.8-2.4) mg/dL Total Bilirubin (0.2-1.0) mg/dL AST (15-37) U/L ALT (12-78) U/L Alkaline Phosphatase (46-116) U/L NT-Pro-B Natriuret Pep (5-125) pg/mL Total Protein (6.4-8.2) g/dL Albumin (3.4-5.0) g/dL Globulin (2.3-3.5) g/dL Albumin/Globulin Ratio (1.2-2.2) Amylase (25-115) U/L Lipase (73-393) U/L TSH, Ultra Sensitive (0.358-3.740) uIU/mL Quentin Results Last 24 Hours: Microbiology 03/08/19 14:00 Gram Stain - Final Pelvic Fluid Med Orders - Current: Current Medications Albuterol (Proventil Neb Soln) 2.5 mg NEB Q4H PRN PRN Reason: Shortness Of Breath/wheezing Diphenhydramine HCl (Benadryl) 25 mg IVPUSH Q4H PRN PRN Reason: Itching Haloperidol Lactate (Haldol) 2 mg IVPUSH Q4H PRN PRN Reason: Agitation Haloperidol Lactate (Haldol) 5 mg IVPUSH BID [facility]ILI Last Admin: 03/09/19 09:06 Dose: 5 mg Hydromorphone HCl (Dilaudid Paid Search Specialist 15 Mg In Ns 30 Ml) 0 mg IV ASDIRECTED PRN; Protocol PRN Reason: PAIN Last Admin: 03/08/19 16:52 Dose: 15 mg Lactated Ringer's (Ringers, Lactated) 1,000 mls @ 100 mls/hr IV ASDIRECTED [facility] Last Admin: 03/09/19 03:26 Dose: 100 mls/hr Dextrose/Lactated Ringer's (Dextrose 5%-Lactated Ringers) 1,000 mls @ 100 mls/ hr IV ASDIRECTED [facility] Last Admin: 03/09/19 02:51 Dose: 100 mls/hr Ampicillin Sodium/Sulbactam (Sodium 3 gm/ Sodium Chloride) 100 mls @ 200 mls/ hr IV Q6H [facility] Last Admin: 03/09/19 05:49 Dose: 200 mls/hr Aztreonam 1 gm/ Sodium (Chloride) 50 mls @ 100 mls/hr IV Q8H [facility] Last Admin: 03/09/19 03:28 Dose: 100 mls/hr Valproic Acid 500 mg/ Sodium (Chloride) 55 mls @ 55 mls/hr IV Q8H [facility] Last Admin: 03/09/19 04:42 Dose: 55 mls/hr Latanoprost (Xalatan 0.005% Ophth Soln) 0 ml EYEBOTH BEDTIME [facility] Last Admin: 03/08/19 22:31 Dose: 2.5 ml Lorazepam (Ativan) 0.5 mg IVPUSH BID [facility] Last Admin: 03/09/19 09:09 Dose: 0.5 mg Lorazepam (Ativan) 0.5 mg IVPUSH Q4H PRN PRN Reason: Anxiety Metoprolol Tartrate (Lopressor) 5 mg IV Q6H [facility] Last Admin: 03/09/19 05:19 Dose: 5 mg Naloxone HCl (Narcan) 0.1 mg IV ASDIRECTED PRN PRN Reason: decreased respiratory rate Ondansetron HCl (Zofran) 4 mg IVPUSH Q4H PRN PRN Reason: Nausea/Vomiting Pantoprazole Sodium (Protonix Iv) 40 mg IV Q24H [facility] Last Admin: 03/08/19 18:11 Dose: 40 mg Sodium Chloride (Joseph 128 5% Ophth Soln) 0 ml EYEBOTH QID [facility] Last Admin: 03/09/19 09:04 Dose: 1 drop Discontinued Medications Ropivacaine 36 ml/Dexamethasone 8 mg/Epinephrine HCl 0.4 mg/ Sodium Chloride 41.6 ml [facility] Last Admin: 03/08/19 15:05 Dose: 80 syringe Dexamethasone (Dexamethasone) Confirm Administered Dose 4 mg .ROUTE .STK-MED ONE Stop: 03/08/19 12:18 Diphenhydramine HCl (Benadryl) 25 mg IVPUSH Q6H PRN PRN Reason: Itching Diphenhydramine HCl (Benadryl) 25 mg PO Q6H PRN PRN Reason: Itching Fentanyl (Sublimaze) Confirm Administered Dose 250 mcg .ROUTE .STK-MED ONE Stop: 03/08/19 12:19 Glycopyrrolate (Robinul) Confirm Administered Dose 1 mg .ROUTE .STK-MED ONE Stop: 03/08/19 12:18 Sodium Chloride (Normal Saline) 1,000 mls @ 1,000 mls[facility] Last Admin: 03/08/19 10:02 Dose: 1,000 mls/hr Ampicillin Sodium/Sulbactam (Sodium 1.5 gm/ Sodium Chloride) 50 mls @ 100 mls/ hr IV Q6H [facility] Last Admin: 03/08/19 13:30 Dose: 100 mls/hr Aztreonam 1 gm/ Sodium (Chloride) 50 mls @ 100 mls/hr IV Q12H [facility] Last Admin: 03/08/19 13:30 Dose: 100 mls/hr Lactated Ringer's (Ringers, Lactated) 1,000 mls @ 150 mls/hr IV [facility] Last Admin: 03/08/19 13:31 Dose: 150 mls/hr Lactated Ringer's (Ringers, Lactated) Confirm Administered Dose 1,000 mls @ as directed .ROUTE .STK-MED ONE Stop: 03/08/19 15:16 Meropenem (Merrem) Confirm Administered Dose 500 mg .ROUTE .STK-MED ONE Stop: 03/08/19 12:05 Last Admin: 03/08/19 14:00 Dose: 500 mg Neostigmine Methylsulfate (Neostigmine) Confirm Administered Dose 5 mg .ROUTE .STK-MED ONE Stop: 03/08/19 12:18 Ondansetron HCl (Zofran) Confirm Administered Dose 4 mg .ROUTE .STK-MED ONE Stop: 03/08/19 12:18 Ondansetron HCl (Zofran) 4 mg IVPUSH Q6H PRN PRN Reason: Nausea/Vomiting Propofol (Diprivan 20 Ml) Confirm Administered Dose 200 mg .ROUTE .STK-MED ONE Stop: 03/08/19 12:18 Rocuronium Camby (Zemuron) Confirm Administered Dose 50 mg .ROUTE .STK-MED ONE Stop: 03/08/19 12:18 Succinylcholine Chloride (Quelicin) Confirm Administered Dose 200 mg .ROUTE .STK -MED ONE Stop: 03/08/19 12:18 - Exam Quality Assessment: Supplemental Oxygen General: Alert, No Acute Distress, Sedated Lungs: Clear to Auscultation, Normal Respiratory Effort Cardiovascular: Regular Rate, Regular Rhythm GI/Abdominal Exam: Soft, No Distention Extremities: No Pedal Edema Skin: Warm, Dry Wound/Incisions: Dressing Dry and Intact Psy/Mental Status: No: Agitated - Problem List & Annotations (1) Small bowel obstruction due to adhesions SNOMED Code(s): 546515506 Code(s): K56.50 - INTESTNL ADHESIONS, UNSP TO PARTIAL VERSUS COMPLETE OBST Status: Acute Current Visit: Yes (2) Acute kidney injury SNOMED Code(s): 58813776, 58102522 Code(s): N17.9 - ACUTE KIDNEY FAILURE, UNSPECIFIED Status: Acute Current Visit: Yes (3) Schizophrenia SNOMED Code(s): 69081661 Code(s): F20.9 - SCHIZOPHRENIA, UNSPECIFIED Status: Chronic Current Visit : No Qualifiers: Schizophrenia type: unspecified Qualified Code(s): F20.9 - Schizophrenia, unspecified (4) Hypothyroid SNOMED Code(s): 44982827 Code(s): E03.9 - HYPOTHYROIDISM, UNSPECIFIED Status: Chronic Current Visit: No Qualifiers: Hypothyroidism type: acquired Qualified Code(s): E03.9 - Hypothyroidism, unspecified (5) HTN (hypertension) SNOMED Code(s): 99544624 Code(s): I10 - ESSENTIAL (PRIMARY) HYPERTENSION Status: Chronic Current Visit: No Qualifiers: Hypertension type: essential hypertension Qualified Code(s): I10 - Essential (primary) hypertension - Problem List Review Problem List Initiated/Reviewed/Updated: Yes - My Orders Last 24 Hours: My Active Orders 03/08/19 11:52 NG [Gastrointestinal Tube Mgmt] [RC] ASDIRECTED NG [Nasogastric Orogastric Tube Insertion] [OM.PC] Routine 03/08/19 11:58 Resuscitation Status Routine 03/08/19 17:00 Lactated Ringers [Ringers, Lactated] 1,000 ml IV ASDIRECTED 03/08/19 17:27 Patient Status [ADT] Routine Antiembolic Devices [RC] .Routine Bedrest Bedside Commode [RC] ASDIRECTED Height and Weight [RC] DAILY Notify Provider Consults [RC] ASDIRECTED Notify Provider Vital Signs [RC] ASDIRECTED Oxygen Therapy [RC] PRN RT Aerosol Therapy [RC] ASDIRECTED VTE/DVT Education [RC] Per Unit Routine Vital Signs [RC] Q2H Consult to Physician [CONS] Routine Albuterol [Proventil Neb Soln] 2.5 mg NEB Q4H PRN Haloperidol Lactate [Haldol] 2 mg IVPUSH Q4H PRN LORazepam [Ativan] 0.5 mg IVPUSH Q4H PRN diphenhydrAMINE [Benadryl] 25 mg IVPUSH Q4H PRN Sequential Compression Device [OM.PC] Routine VTE Pharmacological Contraindications [AST] Routine 03/08/19 18:00 Ampicillin/Sulbactam Na [Unasyn] 3 gm Sodium Chloride 0.9% [Normal Saline] 100 ml IV Q6H 03/08/19 20:00 Aztreonam [Azactam] 1 gm Sodium Chloride 0.9% [Normal Saline] 50 ml IV Q8H 03/08/19 21:00 Haloperidol Lactate [Haldol] 5 mg IVPUSH BID LORazepam [Ativan] 0.5 mg IVPUSH BID Valproate Sodium [Depacon] 500 mg Sodium Chloride 0.9% [Normal Saline] 50 ml IV Q8H 03/08/19 Lunch Nothing per Oral Now Diet [DIET] - Plan Plan:: ASSESSMENT AND PLAN - Small bowel obstruction with pneumatosis - status post emergent laparotomy with small bowel resection and right colectomy yesterday. Vitals stable but he is very lethargic. He has not NG tube in place. -Postoperative care per surgical team -IV fluids -Pain control -Antibiotic coverage with Unasyn and aztreonam -NG tube drainage Severe schizophrenia - patient is very debilitated because of his psychiatric illness. With his ongoing somnolence am going to hold off on some of his medications until he is more alert. -Continue low-dose Haldol -Continue regular dose Depakote -Hold lorazepam Acute kidney injury - due to poor intake and small bowel obstruction. Levels are improving with hydration. -Aggressive IV fluid resuscitation -Repeat labs in the morning Maintenance issues - - DVT prophylaxis - mechanical - GI prophylaxis - IV PPI - Nutrition - nothing by mouth - Rodriguez catheter - placed for strict intake and output monitoring with a critical patient Disposition - anticipate discharge home versus more likely the residential Farhan Nj M.D.
[2019-03-09] MEDS: Potassium Chloride 20 MEQ, Lidocaine 1% 2 ML in Sodium Chloride 0.9% 100 ML IV SCH ×3 (10:38→17:30)
[2019-03-09] MEDS ORDERED: Lactated Ringers 750 ML IV ONE ×2 (15:26→20:30)
[2019-03-09] MEDS: Pantoprazole 40 MG Vial IV SCH (17:56)
[2019-03-09] MEDS: Ondansetron 4 MG/2 ML SDV IVPUSH PRN (20:57)
[2019-03-09] MEDS: Latanoprost 0.005% Ophth Soln 2.5 ML Bottle EYEBOTH SCH (21:16)
[2019-03-09] MEDS ORDERED: Furosemide 20 MG/2 ML VIAL IVPUSH ONE (21:55)
[2019-03-09] MEDS ORDERED: Furosemide 20 MG/2 ML VIAL ONE (22:04)
[2019-03-10] MEDS: Albuterol 0.083% 2.5 MG/3 ML Neb Soln NEB PRN (00:24)
[2019-03-10] MEDS: Dextrose 5%-Lactated Ringers 1,000 ML IV SCH ×2 (01:38→12:57)
[2019-03-10] MEDS: Metoprolol Tartrate 5 MG/5 ML SDV IV SCH ×3 (05:32→18:18)
[2019-03-10] MEDS: Ampicillin/Sulbactam Na 3 GM in Sodium Chloride 0.9% 100 ML IV SCH ×4 (05:39→23:43)
[2019-03-10] MEDS: Sodium Chloride 5% Ophth Soln 15 ML Bottle EYEBOTH SCH ×4 (05:42→21:12)
[2019-03-10] MEDS ORDERED: Lidocaine 1% with EPINEPHrine 1:100,000 50 ML MDV ONE (06:22)
[2019-03-10] MEDS ORDERED: Meropenem 500 MG SDV ONE (06:22)
[2019-03-10] MEDS ORDERED: Bupivacaine 0.5% 50 ML MDV ONE (06:22)
[2019-03-10] MEDS ORDERED: Furosemide 20 MG/2 ML VIAL IVPUSH ONE (06:32)
[2019-03-10] MEDS ORDERED: Heparin Sodium 5,000 Units/ML Vial ONE (07:03)
[2019-03-10] MEDS ORDERED: Succinylcholine 200 MG/10 ML MDV ONE (07:32)
[2019-03-10] MEDS ORDERED: Propofol 200 MG/20 ML SDV ONE (07:32)
[2019-03-10] MEDS: Heparin Sodium 5,000 UNITS in Sodium Chloride 0.9% 500 ML IV SCH (07:58)
--- NOTE | 2019-03-10 08:16 | CRLCR ---
INDICATION: Intubation. COMPARISON: none TECHNIQUE: Portable AP erect chest performed at 7:42 a.m. FINDINGS: The tip of the endotracheal tube lies 4.2 cm above the yair. Alveolar infiltrates are noted within the lower lobes. The heart and pulmonary vessels appear normal in size. There is no evidence of pneumothorax or pneumomediastinum. IMPRESSION: Proper endotracheal tube position. Dictated by Evan Navas MD @ 03/10/2019 8:15:22 AM Dictated by: Evan Navas MD @ 03/10/2019 08:15:32 (Electronically Signed)
[2019-03-10] MEDS ORDERED: Ropivacaine 36 ML, dexAMETHasone 8 MG, EPINEPHrine 0.4 MG, Sodium Chloride 0.9% 41.6 ML NERVRT SCH ×4 (08:30)
[2019-03-10] MEDS: Haloperidol Lactate 5 MG/ML SDV IVPUSH SCH ×2 (09:09→20:50)
[2019-03-10] MEDS: LORazepam 2 MG/ML SDV IVPUSH SCH ×2 (09:09→20:43)
--- NOTE | 2019-03-10 09:29 | PCM.PN ---
- General Info Date of Service: 03/10/19 Subjective Update: Overnight the patient had a decline in his respiratory status with increasing supplemental oxygen requirements. This morning he was up to 10 L or even more with a nonrebreather. Despite this he had persistent hypoxia. He was electively intubated this morning without incident. Respiratory status has improved since the extubation. Chest x-ray confirmed good placement of endotracheal tube. Kidney function improving. No fevers. Pain seems to be well-controlled. Resp status stable since intubation. Functional Status: Reports: Pain Controlled - Review of Systems General: Denies: Fever - Patient Data Vitals - Most Recent: Last Vital Signs Temp 36.7 C 03/10/19 08:04 Pulse 110 H 03/10/19 08:04 Resp 14 03/10/19 08:04 BP 96/44 L 03/10/19 08:04 Pulse Ox 97 03/10/19 08:04 Weight - Most Recent: 79.605 kg I&O - Last 24 Hours: Intake & Output 03/09/19 03/10/19 03/10/19 22:59 06:59 14:59 Intake Total 2780 2428 Output Total 702 1295 225 Balance 2078 1133 -225 Lab Results Last 24 Hours: Laboratory Results - last 24 hr 03/10/19 03/10/19 03/10/19 Range/Units 05:04 05:04 08:07 WBC 10.7 (4.5-11.0) K/uL RBC 4.34 (4.30-5.90) M/uL Hgb 12.6 (12.0-15.0) g/dL Hct 39.8 L (40.0-54.0) % MCV 92 (80-98) fL MCH 29 (27-31) pg MCHC 32 (32-36) % Plt Count 230 (150-400) K/uL Puncture Site Lt radial ABG pH 7.517 H (7.350-7.450) ABG pCO2 42.2 H (35.0-42.0) mmHg ABG pO2 60.1 L (75.0-100.0) mmHg ABG HCO3 34.0 H (22.0-26.0) mmol/L ABG Total CO2 30.1 H (23.0-27.0) mmol/L ABG O2 Saturation 92.0 L (95.0-98.0) % ABG O2 Content 15.4 (15.0-23.0) %vol ABG Base Excess 10.1 mm/L ABG Hemoglobin 12.1 L (13.5-18.0) g/dL ABG Oxyhemoglobin 90.3 % ABG Carboxyhemoglobin 0.4 (0.0-1.6) % ABG Methemoglobin 1.4 % Andrew Test Pass O2 Delivery Device Ventilator Oxygen Flow Rate L Sodium 140 (140-148) mmol/L Potassium 3.4 L (3.6-5.2) mmol/L Chloride 99 L (100-108) mmol/L Carbon Dioxide 37 H (21-32) mmol/L Anion Gap 7.4 (5.0-14.0) mmol/L BUN 33 H (7-18) mg/dL Creatinine 1.9 H (0.8-1.3) mg/dL Est Cr Clr Drug Dosing 35.49 mL/min Estimated GFR (MDRD) 37 L (>60) Glucose 145 H (74-106) mg/dL Calcium 8.4 L (8.5-10.1) mg/dL Phosphorus 3.1 (2.5-4.9) mg/dL Magnesium 2.0 (1.8-2.4) mg/dL Total Bilirubin 0.2 (0.2-1.0) mg/dL AST 28 (15-37) U/L ALT 20 (12-78) U/L Alkaline Phosphatase 55 (46-116) U/L NT-Pro-B Natriuret Pep 806 H (5-125) pg/mL Total Protein 5.3 L (6.4-8.2) g/dL Albumin 2.0 L (3.4-5.0) g/dL Globulin 3.3 (2.3-3.5) g/dL Albumin/Globulin Ratio 0.6 L (1.2-2.2) Quentin Results Last 24 Hours: Microbiology 03/10/19 07:30 Gram Stain - Final Endotrachael Aspirate 03/08/19 14:00 Gram Stain - Final Pelvic Fluid Wound Culture - Preliminary NO GROWTH AFTER 1 DAY Anaerobic Culture - Preliminary NO GROWTH AFTER 1 DAY 03/09/19 23:08 Gram Stain - Final Other - Deep Med Orders - Current: Current Medications Albuterol (Proventil Neb Soln) 2.5 mg NEB Q4H PRN PRN Reason: Shortness Of Breath/wheezing Last Admin: 03/10/19 00:24 Dose: 2.5 mg Ropivacaine 36 ml/Dexamethasone 8 mg/Epinephrine HCl 0.4 mg/ Sodium Chloride 41.6 ml 0 ml NERVRT ASDIRECTED [facility] Diphenhydramine HCl (Benadryl) 25 mg IVPUSH Q4H PRN PRN Reason: Itching Haloperidol Lactate (Haldol) 2 mg IVPUSH Q4H PRN PRN Reason: Agitation Haloperidol Lactate (Haldol) 2.5 mg IVPUSH BID [facility] Last Admin: 03/10/19 09:09 Dose: 2.5 mg Hydromorphone HCl (Dilaudid Tax Advisor 15 Mg In Ns 30 Ml) 0 mg IV ASDIRECTED PRN; Protocol PRN Reason: PAIN Last Admin: 03/08/19 16:52 Dose: 15 mg Dextrose/Lactated Ringer's (Dextrose 5%-Lactated Ringers) 1,000 mls @ 100 mls/ hr IV ASDIRECTED [facility] Last Admin: 03/10/19 01:38 Dose: 100 mls/hr Ampicillin Sodium/Sulbactam (Sodium 3 gm/ Sodium Chloride) 100 mls @ 200 mls/ hr IV Q6H [facility] Last Admin: 03/10/19 05:39 Dose: 200 mls/hr Aztreonam 1 gm/ Sodium (Chloride) 50 mls @ 100 mls/hr IV Q8H [facility] Last Admin: 03/10/19 03:43 Dose: 100 mls/hr Valproic Acid 500 mg/ Sodium (Chloride) 55 mls @ 55 mls/hr IV Q8H [facility] Last Admin: 03/10/19 04:25 Dose: 55 mls/hr Heparin Sodium (Porcine) 5,000 (units/ Sodium Chloride) 501 mls @ 5 mls/hr IV ASDIRECTED [facility] Last Admin: 03/10/19 07:58 Dose: 5 mls/hr Propofol (Diprivan 100 Ml) 100 mls @ 2.191 mls/hr IV TITRATE [facility]; Protocol Last Admin: 03/10/19 07:45 Dose: 10 mcg/kg/min, 4.382 mls/hr Latanoprost (Xalatan 0.005% Ophth Soln) 0 ml EYEBOTH BEDTIME [facility] Last Admin: 03/09/19 21:16 Dose: 1 drop Lorazepam (Ativan) 0.5 mg IVPUSH Q4H PRN PRN Reason: Anxiety Lorazepam (Ativan) 0.5 mg IVPUSH BID WILI Metoprolol Tartrate (Lopressor) 5 mg IV Q6H [facility] Last Admin: 03/10/19 05:32 Dose: 5 mg Naloxone HCl (Narcan) 0.1 mg IV ASDIRECTED PRN PRN Reason: decreased respiratory rate Ondansetron HCl (Zofran) 4 mg IVPUSH Q4H PRN PRN Reason: Nausea/Vomiting Last Admin: 03/09/19 20:57 Dose: 4 mg Pantoprazole Sodium (Protonix Iv) 40 mg IV Q24H [facility] Last Admin: 03/09/19 17:56 Dose: 40 mg Sodium Chloride (Joseph 128 5% Ophth Soln) 0 ml EYEBOTH QID [facility] Last Admin: 03/10/19 05:42 Dose: 1 drop Discontinued Medications Bupivacaine HCl (Marcaine 0.5%) Confirm Administered Dose 50 ml .ROUTE .STK-MED ONE Stop: 03/10/19 06:23 Ropivacaine 36 ml/Dexamethasone 8 mg/Epinephrine HCl 0.4 mg/ Sodium Chloride 41.6 ml 0 ml NERVRT ASDIRECTED [facility] Last Admin: 03/08/19 15:05 Dose: 80 syringe Dexamethasone (Dexamethasone) Confirm Administered Dose 4 mg .ROUTE .STK-MED ONE Stop: 03/08/19 12:18 Diphenhydramine HCl (Benadryl) 25 mg IVPUSH Q6H PRN PRN Reason: Itching Diphenhydramine HCl (Benadryl) 25 mg PO Q6H PRN PRN Reason: Itching Fentanyl (Sublimaze) Confirm Administered Dose 250 mcg .ROUTE .STK-MED ONE Stop: 03/08/19 12:19 Furosemide (Lasix) 20 mg IVPUSH ONETIME ONE Stop: 03/09/19 21:56 Last Admin: 03/09/19 22:10 Dose: 20 mg Furosemide (Lasix) Confirm Administered Dose 20 mg .ROUTE .STK-MED ONE Stop: 03/09/19 22:05 Last Admin: 03/09/19 22:10 Dose: Not Given Furosemide (Lasix) 20 mg IVPUSH ONETIME ONE Stop: 03/10/19 06:33 Last Admin: 03/10/19 07:20 Dose: 20 mg Glycopyrrolate (Robinul) Confirm Administered Dose 1 mg .ROUTE .[facility] ONE Stop: 03/08/19 12:18 Haloperidol Lactate (Haldol) 5 mg IVPUSH BID [facility] Last Admin: 03/09/19 09:06 Dose: 5 mg Heparin Sodium (Porcine) (Heparin Sodium) Confirm Administered Dose 5,000 units .ROUTE .[facility] ONE Stop: 03/10/19 07:04 Last Admin: 03/10/19 07:57 Dose: Not Given Sodium Chloride (Normal Saline) 1,000 mls @ 1,000 mls/hr IV ASDIRECTED [facility] Last Admin: 03/08/19 10:02 Dose: 1,000 mls/hr Ampicillin Sodium/Sulbactam (Sodium 1.5 gm/ Sodium Chloride) 50 mls @ 100 mls/ hr IV Q6H [facility] Last Admin: 03/08/19 13:30 Dose: 100 mls/hr Aztreonam 1 gm/ Sodium (Chloride) 50 mls @ 100 mls/hr IV Q12H [facility] Last Admin: 03/08/19 13:30 Dose: 100 mls/hr Lactated Ringer's (Ringers, Lactated) 1,000 mls @ 150 mls/hr IV ASDIRECTED [facility] Last Admin: 03/08/19 13:31 Dose: 150 mls/hr Lactated Ringer's (Ringers, Lactated) Confirm Administered Dose 1,000 mls @ as directed .ROUTE .[facility] ONE Stop: 03/08/19 15:16 Lactated Ringer's (Ringers, Lactated) 1,000 mls @ 100 mls/hr IV ASDIRECTED [facility] Last Admin: 03/09/19 03:26 Dose: 100 mls/hr Potassium Chloride 20 meq/Lidocaine HCl 2 ml/ Sodium Chloride 112 mls @ 56 mls/ hr IV Q2H [facility] Stop: 03/09/19 15:59 Last Admin: 03/09/19 17:30 Dose: 56 mls/hr Lactated Ringer's (Ringers, Lactated) 750 mls @ 750 mls/hr IV [facility] ONE Stop: 03/09/19 16:25 Last Admin: 03/09/19 15:53 Dose: 750 mls/hr Lactated Ringer's (Ringers, Lactated) 750 mls @ 999 mls/hr IV [facility] ONE Stop: 03/09/19 21:15 Last Admin: 03/09/19 21:08 Dose: 999 mls/hr Lidocaine/Epinephrine (Xylocaine 1% With Epinephrine 1:100,000) Confirm Administered Dose 50 ml .ROUTE .STK-MED ONE Stop: 03/10/19 06:23 Lorazepam (Ativan) 0.5 mg IVPUSH BID [facility] Last Admin: 03/09/19 09:09 Dose: 0.5 mg Lorazepam (Ativan) 0.25 mg IVPUSH BID [facility] Last Admin: 03/10/19 09:09 Dose: 0.25 mg Meropenem (Merrem) Confirm Administered Dose 500 mg .ROUTE .STK-MED ONE Stop: 03/08/19 12:05 Last Admin: 03/08/19 14:00 Dose: 500 mg Meropenem (Merrem) Confirm Administered Dose 500 mg .ROUTE .STK-MED ONE Stop: 03/10/19 06:23 Neostigmine Methylsulfate (Neostigmine) Confirm Administered Dose 5 mg .ROUTE .STK-MED ONE Stop: 03/08/19 12:18 Ondansetron HCl (Zofran) Confirm Administered Dose 4 mg .ROUTE .STK-MED ONE Stop: 03/08/19 12:18 Ondansetron HCl (Zofran) 4 mg IVPUSH Q6H PRN PRN Reason: Nausea/Vomiting Propofol (Diprivan 20 Ml) Confirm Administered Dose 200 mg .ROUTE .STK-MED ONE Stop: 03/08/19 12:18 Propofol (Diprivan 20 Ml) Confirm Administered Dose 200 mg .ROUTE .STK-MED ONE Stop: 03/10/19 07:33 Rocuronium [place] (Zemuron) Confirm Administered Dose 50 mg .ROUTE .STK-MED ONE Stop: 03/08/19 12:18 Succinylcholine Chloride (Quelicin) Confirm Administered Dose 200 mg .ROUTE .STK -MED ONE Stop: 03/08/19 12:18 Succinylcholine Chloride (Quelicin) Confirm Administered Dose 200 mg .ROUTE .STK -MED ONE Stop: 03/10/19 07:33 - Exam Quality Assessment: Supplemental Oxygen General: Sedated. No: Alert, Cooperative Neck: Supple Lungs: Clear to Auscultation, Normal Respiratory Effort Cardiovascular: Regular Rhythm, Tachycardia GI/Abdominal Exam: Soft, No Distention Extremities: No Pedal Edema. No: Increased Warmth Skin: Warm, Dry Psy/Mental Status: No: Alert, Agitated - Problem List & Annotations (1) Small bowel obstruction due to adhesions SNOMED Code(s): 671679921 Code(s): K56.50 - INTESTNL ADHESIONS, UNSP TO PARTIAL VERSUS COMPLETE OBST Status: Acute Current Visit: Yes (2) Acute kidney injury SNOMED Code(s): 13100122, 16645408 Code(s): N17.9 - ACUTE KIDNEY FAILURE, UNSPECIFIED Status: Acute Current Visit: Yes (3) Schizophrenia SNOMED Code(s): 90247273 Code(s): F20.9 - SCHIZOPHRENIA, UNSPECIFIED Status: Chronic Current Visit : No Qualifiers: Schizophrenia type: unspecified Qualified Code(s): F20.9 - Schizophrenia, unspecified (4) Hypothyroid SNOMED Code(s): 72165391 Code(s): E03.9 - HYPOTHYROIDISM, UNSPECIFIED Status: Chronic Current Visit: No Qualifiers: Hypothyroidism type: acquired Qualified Code(s): E03.9 - Hypothyroidism, unspecified (5) HTN (hypertension) SNOMED Code(s): 89093144 Code(s): I10 - ESSENTIAL (PRIMARY) HYPERTENSION Status: Chronic Current Visit: No Qualifiers: Hypertension type: essential hypertension Qualified Code(s): I10 - Essential (primary) hypertension - Problem List Review Problem List Initiated/Reviewed/Updated: Yes - My Orders Last 24 Hours: My Active Orders 03/09/19 21:00 Haloperidol Lactate [Haldol] 2.5 mg IVPUSH BID 03/09/19 Dinner NPO Now [Nothing per Oral Now Diet] [DIET] 03/10/19 09:27 Mechanical Ventilation [RT Ventilator, Adult] [RC] ASDIRECTED 03/10/19 09:28 Nrsg Assess Restraint Init/Mon [RC] Q1H 03/10/19 09:30 Initiate/Renew Non-Violent Restraints (All Ages) Q24H 03/10/19 21:00 LORazepam [Ativan] 0.5 mg IVPUSH BID - Plan Plan:: ASSESSMENT AND PLAN - Small bowel obstruction with pneumatosis - status post emergent laparotomy with small bowel resection and right colectomy 03/08. Pain seems to be controlled. -Postoperative care per surgical team -IV fluids -Pain control -Antibiotic coverage with Unasyn and aztreonam -NG tube drainage Acute respiratory failure with hypoxia - 2/2 schizophrenia and weakness. Not able to cough effectively. Increasing secretions and O2 requirements overnight. Intubated this am. CXR did not show infiltrate. -cont mechanical ventilation -propofol sedation -f/u culture Severe schizophrenia - patient is very debilitated because of his psychiatric illness. Psych illness has contributed to resp decline. -Continue low-dose Haldol -Continue regular dose Depakote -low dose lorazepam Acute kidney injury - due to poor intake and small bowel obstruction. Function slowly improving with hydration. -continue IV fluid resuscitation -Repeat labs in the morning Maintenance issues - - DVT prophylaxis - mechanical - GI prophylaxis - IV PPI - Nutrition - nothing by mouth - Rodriguez catheter - placed for strict intake and output monitoring with a critical patient Disposition - anticipate discharge home versus more likely the half-way Farhan Nj M.D.
[2019-03-10] MEDS: Linezolid 600 MG in Premix Bag 1 BAG IV SCH ×2 (10:04→22:32)
--- NOTE | 2019-03-10 10:52 | ANES ---
DATE OF SERVICE: 03/10/2019 A 58-year-old male of Farhan Nj MD. I was requested to do stat intubation in the ICU. Upon arrival, I found a 58-year-old male, somewhat unresponsive, moaning in bed. I dosed him with 150 mg of propofol and accessed trachea with #3 Mac blade and #8 endotracheal tube was placed without difficulty. He was orally suctioned pre-access. After the endotracheal tube was placed, there were bilateral breath sounds, positive end-tidal CO2, equal chest rise. Handed off the tube to the respiratory therapist and the nurse in the room and reported off what I had given. Vitals remained within pre-procedure except O2 saturations were in the 90s. He tolerated the procedure quite well. Junior Duarte CRNA /[id number]
--- NOTE | 2019-03-10 11:31 | PROC ---
DATE OF PROCEDURE: 03/10/2019 PROCEDURE: Arterial line placement. TECHNIQUE: I was called by ICU this morning for a gentleman who was previously intubated today for respiratory distress, and they were requesting an arterial line placement. I was at the bedside at approximately 1015 hours. Bilateral radial pulses were felt. Right one was slightly more palpable than the left. Right radial artery area was prepped using ChloraPrep. Sterile gloves were donned. A 20-gauge Arrow catheter was inserted into the right radial artery without difficulty, attempt x1. Bright red blood flow was noticed immediately. Pulsatile blood flow coming back out of the catheter was also noted. Catheter was then hooked up to the radial arterial line monitor and a correct waveform was noted on the monitor. Catheter was then sutured using 2-0 Prolene and secured further using Tegaderm and tape. The patient tolerated the procedure without difficulty. We will continue to monitor the patient as needed. Jimi Spear CRNA /[id number]
[2019-03-10] MEDS: Potassium Chloride 20 MEQ, Lidocaine 1% 2 ML in Sodium Chloride 0.9% 100 ML IV SCH ×2 (13:54→16:07)
[2019-03-10] MEDS: Pantoprazole 40 MG Vial IV SCH (18:23)
[2019-03-10] MEDS: Latanoprost 0.005% Ophth Soln 2.5 ML Bottle EYEBOTH SCH (20:51)
[2019-03-11] MEDS: Metoprolol Tartrate 5 MG/5 ML SDV IV SCH ×4 (00:03→18:08)
[2019-03-11] MEDS: Dextrose 5%-Lactated Ringers 1,000 ML IV SCH ×3 (01:16→23:35)
--- NOTE | 2019-03-11 04:27 | CRLCR ---
INDICATION: Respiratory distress TECHNIQUE: Chest radiograph 1 view COMPARISON: 03/10/2019 FINDINGS: Mediastinum: The mediastinum is normal in appearance. The heart silhouette is normal in size and morphology. The endotracheal tube tip is positioned 3.9 cm from the yair. NG tube present with tip just beyond the GE junction. Lung: Mild interval increase in the bibasilar atelectasis consolidation noted. Small bilateral pleural effusions seen. The apices are obscured by the patient`s chin and cannot be evaluated. No pneumothorax is identified. IMPRESSIONS: 1. Mild interval increase in the bibasilar atelectasis consolidation noted. Small bilateral pleural effusions seen. 2. NG tube present with tip just beyond the GE junction. Dictated by Ashutosh Rowell MD @ 03/11/2019 4:26:02 AM Dictated by: Ashutosh Rowell MD @ 03/11/2019 04:26:07 (Electronically Signed)
[2019-03-11] MEDS: Potassium Chloride 20 MEQ in Premix Bag 1 BAG IV SCH ×2 (05:39→07:32)
[2019-03-11] MEDS: Sodium Chloride 5% Ophth Soln 15 ML Bottle EYEBOTH SCH ×4 (05:50→21:53)
[2019-03-11] MEDS: Ampicillin/Sulbactam Na 3 GM in Sodium Chloride 0.9% 100 ML IV SCH ×3 (05:55→18:12)
[2019-03-11] MEDS ORDERED: Meropenem 500 MG SDV ONE (06:44)
[2019-03-11] MEDS ORDERED: Bupivacaine 0.5% 50 ML MDV ONE (07:18)
[2019-03-11] MEDS ORDERED: Lidocaine 1% with EPINEPHrine 1:100,000 50 ML MDV ONE (07:18)
[2019-03-11] MEDS ORDERED: Ropivacaine 36 ML, dexAMETHasone 8 MG, EPINEPHrine 0.4 MG, Sodium Chloride 0.9% 41.6 ML NERVRT SCH ×4 (08:15)
[2019-03-11] MEDS: Albuterol/Ipratropium 3.0-0.5 MG/3 ML Neb Soln INH SCH ×4 (08:41→20:47)
[2019-03-11] MEDS: Acetylcysteine 20% 200 MG/ML 4 ML Nebulizer Soln SDV INH SCH ×2 (08:41→20:47)
[2019-03-11] MEDS: Potassium Phosphates 20 MMOLE in Sodium Chloride 0.9% 250 ML IV SCH ×3 (08:52→14:42)
[2019-03-11] MEDS: LORazepam 2 MG/ML SDV IVPUSH SCH ×2 (09:00→20:50)
[2019-03-11] MEDS: Haloperidol Lactate 5 MG/ML SDV IVPUSH SCH ×2 (09:01→20:47)
[2019-03-11] MEDS: Magnesium Sulfate/Water 2 GM in Premix Bag 1 BAG IV SCH ×3 (09:12→21:53)
--- NOTE | 2019-03-11 09:30 | PCM.PN ---
- General Info Date of Service: 03/11/19 Subjective Update: No acute events overnight and patient has rested fairly comfortably. He remains intubated and sedated and does not provide any reliable history. He appears comfortable. He has not had any fevers. Heart rate seems to be slowly improving. Urine output has been satisfactory. PH noted on the ABG collected this morning was elevated and 2 different ventilator changes have been made this morning with reduction in both respiratory rate and tidal volume. Functional Status: Reports: Pain Controlled - Review of Systems General: Reports: Weakness. Denies: Fever - Patient Data Vitals - Most Recent: Last Vital Signs Temp 36.9 C 03/11/19 04:00 Pulse 91 03/11/19 07:15 Resp 17 03/11/19 07:15 BP 152/62 H 03/11/19 07:15 Pulse Ox 94 L 03/11/19 07:15 Weight - Most Recent: 76.2 kg I&O - Last 24 Hours: Intake & Output 03/10/19 03/11/19 03/11/19 22:59 06:59 14:59 Intake Total 2130 1751 Output Total 1335 650 Balance 795 1101 Lab Results Last 24 Hours: Laboratory Results - last 24 hr 03/11/19 03/11/19 03/11/19 Range/Units 04:59 04:59 05:00 WBC 16.3 H (4.5-11.0) K/uL RBC 3.80 L (4.30-5.90) M/uL Hgb 11.0 L (12.0-15.0) g/dL Hct 34.2 L (40.0-54.0) % MCV 90 (80-98) fL MCH 29 (27-31) pg MCHC 32 (32-36) % Plt Count 225 (150-400) K/uL Puncture Site A-line ABG pH 7.682 H* (7.350-7.450) ABG pCO2 25.9 L (35.0-42.0) mmHg ABG pO2 54.1 L (75.0-100.0) mmHg ABG HCO3 31.3 H (22.0-26.0) mmol/L ABG Total CO2 26.7 (23.0-27.0) mmol/L ABG O2 Saturation 92.3 L (95.0-98.0) % ABG O2 Content 16.5 (15.0-23.0) %vol ABG Base Excess 10.6 mm/L ABG Hemoglobin 12.9 L (13.5-18.0) g/dL ABG Oxyhemoglobin 90.8 % ABG Carboxyhemoglobin 0.5 (0.0-1.6) % ABG Methemoglobin 1.1 % Andrew Test A-line O2 Delivery Device Ventilator Oxygen Flow Rate L Sodium 141 (140-148) mmol/L Potassium 2.5 L* (3.6-5.2) mmol/L Chloride 103 (100-108) mmol/L Carbon Dioxide 33 H (21-32) mmol/L Anion Gap 7.5 (5.0-14.0) mmol/L BUN 24 H (7-18) mg/dL Creatinine 1.8 H (0.8-1.3) mg/dL Est Cr Clr Drug Dosing 37.71 mL/min Estimated GFR (MDRD) 39 L (>60) Glucose 133 H (74-106) mg/dL Calcium 7.8 L (8.5-10.1) mg/dL Phosphorus 1.3 L (2.5-4.9) mg/dL Magnesium 1.6 L (1.8-2.4) mg/dL Total Bilirubin 0.3 (0.2-1.0) mg/dL AST 29 (15-37) U/L ALT 19 (12-78) U/L Alkaline Phosphatase 59 (46-116) U/L Total Protein 4.4 L (6.4-8.2) g/dL Albumin 1.5 L (3.4-5.0) g/dL Globulin 2.9 (2.3-3.5) g/dL Albumin/Globulin Ratio 0.5 L (1.2-2.2) 03/11/19 03/11/19 Range/Units 06:30 08:50 WBC (4.5-11.0) K/uL RBC (4.30-5.90) M/uL Hgb (12.0-15.0) g/dL Hct (40.0-54.0) % MCV (80-98) fL MCH (27-31) pg MCHC (32-36) % Plt Count (150-400) K/uL Puncture Site A-line A-line ABG pH 7.635 H* 7.643 H* (7.350-7.450) ABG pCO2 29.5 L 28.2 L (35.0-42.0) mmHg ABG pO2 57.8 L 54.1 L (75.0-100.0) mmHg ABG HCO3 31.8 H 31.0 H (22.0-26.0) mmol/L ABG Total CO2 28.2 H 27.2 H (23.0-27.0) mmol/L ABG O2 Saturation 93.2 L 91.6 L (95.0-98.0) % ABG O2 Content 13.9 L 14.4 L (15.0-23.0) %vol ABG Base Excess 10.2 9.7 mm/L ABG Hemoglobin 10.8 L 11.4 L (13.5-18.0) g/dL ABG Oxyhemoglobin 91.5 89.9 % ABG Carboxyhemoglobin 0.5 0.9 (0.0-1.6) % ABG Methemoglobin 1.3 1.0 % Andrew Test N/a A-line O2 Delivery Device Ventilator Ventilator Oxygen Flow Rate L Sodium (140-148) mmol/L Potassium (3.6-5.2) mmol/L Chloride (100-108) mmol/L Carbon Dioxide (21-32) mmol/L Anion Gap (5.0-14.0) mmol/L BUN (7-18) mg/dL Creatinine (0.8-1.3) mg/dL Est Cr Clr Drug Dosing mL/min Estimated GFR (MDRD) (>60) Glucose (74-106) mg/dL Calcium (8.5-10.1) mg/dL Phosphorus (2.5-4.9) mg/dL Magnesium (1.8-2.4) mg/dL Total Bilirubin (0.2-1.0) mg/dL AST (15-37) U/L ALT (12-78) U/L Alkaline Phosphatase (46-116) U/L Total Protein (6.4-8.2) g/dL Albumin (3.4-5.0) g/dL Globulin (2.3-3.5) g/dL Albumin/Globulin Ratio (1.2-2.2) Quentin Results Last 24 Hours: Microbiology 03/09/19 23:08 Gram Stain - Final Other - Deep Respiratory Culture - Preliminary 03/08/19 14:00 Gram Stain - Final Pelvic Fluid Wound Culture - Preliminary NO GROWTH AFTER 2 DAYS Anaerobic Culture - Preliminary NO GROWTH AFTER 2 DAYS 03/10/19 07:30 Gram Stain - Final Endotrachael Aspirate Respiratory Culture - Preliminary Med Orders - Current: Current Medications Acetylcysteine (Mucomyst 20%) 400 mg INH BIDRT [facility] Last Admin: 03/11/19 08:41 Dose: 400 mg Albuterol (Proventil Neb Soln) 2.5 mg NEB Q4H PRN PRN Reason: Shortness Of Breath/wheezing Last Admin: 03/10/19 00:24 Dose: 2.5 mg Albuterol/Ipratropium (Duoneb 3.0-0.5 Mg/3 Ml) 3 ml INH QIDRT [facility] Last Admin: 03/11/19 08:41 Dose: 3 ml Ropivacaine 36 ml/Dexamethasone 8 mg/Epinephrine HCl 0.4 mg/ Sodium Chloride 41.6 ml 0 ml NERVRT ASDIRECTED [facility] Last Admin: 03/11/19 07:41 Dose: 80 syringe Diphenhydramine HCl (Benadryl) 25 mg IVPUSH Q4H PRN PRN Reason: Itching Haloperidol Lactate (Haldol) 2 mg IVPUSH Q4H PRN PRN Reason: Agitation Haloperidol Lactate (Haldol) 2.5 mg IVPUSH BID [facility] Last Admin: 03/11/19 09:01 Dose: 2.5 mg Heparin Sodium (Porcine) (Heparin Lock Flush 100 Units/Ml) 500 units FLUSH ASDIRECTED PRN PRN Reason: Keep Vein Open Last Admin: 03/11/19 08:30 Dose: 500 units Hydromorphone HCl (Dilaudid Child Life Assistant 15 Mg In Ns 30 Ml) 0 mg IV ASDIRECTED PRN; Protocol PRN Reason: PAIN Last Admin: 03/08/19 16:52 Dose: 15 mg Dextrose/Lactated Ringer's (Dextrose 5%-Lactated Ringers) 1,000 mls @ 100 mls/ hr IV ASDIRECTED [facility] Last Admin: 03/11/19 01:16 Dose: 100 mls/hr Ampicillin Sodium/Sulbactam (Sodium 3 gm/ Sodium Chloride) 100 mls @ 200 mls/ hr IV Q6H [facility] Last Admin: 03/11/19 05:55 Dose: 200 mls/hr Aztreonam 1 gm/ Sodium (Chloride) 50 mls @ 100 mls/hr IV Q8H [facility] Last Admin: 03/11/19 03:48 Dose: 100 mls/hr Valproic Acid 500 mg/ Sodium (Chloride) 55 mls @ 55 mls/hr IV Q8H [facility] Last Admin: 03/11/19 05:05 Dose: 55 mls/hr Heparin Sodium (Porcine) 5,000 (units/ Sodium Chloride) 501 mls @ 5 mls/hr IV ASDIRECTED [facility] Last Admin: 03/10/19 07:58 Dose: 5 mls/hr Propofol (Diprivan 100 Ml) 100 mls @ 2.191 mls/hr IV TITRATE [facility]; Protocol Last Titration: 03/11/19 06:41 Dose: 25 mcg/kg/min, 10.954 mls/hr Linezolid 600 mg/ Premix 300 mls @ 300 mls/hr IV Q12H [facility] Last Admin: 03/10/19 22:32 Dose: 300 mls/hr Magnesium Sulfate 2 gm/ Premix 50 mls @ 25 mls/hr IV Q6H [facility] Last Admin: 03/11/19 09:12 Dose: 25 mls/hr Potassium Phosphate 20 mmole/ (Sodium Chloride) 256.6667 mls @ 85 mls/hr IV Q3H [facility] Stop: 03/11/19 17:59 Last Admin: 03/11/19 08:52 Dose: 85 mls/hr Latanoprost (Xalatan 0.005% Ophth Soln) 0 ml EYEBOTH BEDTIME [facility] Last Admin: 03/10/19 20:51 Dose: 1 drop Lorazepam (Ativan) 0.5 mg IVPUSH Q4H PRN PRN Reason: Anxiety Lorazepam (Ativan) 0.5 mg IVPUSH BID [facility] Last Admin: 03/11/19 09:00 Dose: 0.5 mg Metoprolol Tartrate (Lopressor) 5 mg IV Q6H [facility] Last Admin: 03/11/19 05:48 Dose: 5 mg Naloxone HCl (Narcan) 0.1 mg IV ASDIRECTED PRN PRN Reason: decreased respiratory rate Ondansetron HCl (Zofran) 4 mg IVPUSH Q4H PRN PRN Reason: Nausea/Vomiting Last Admin: 03/09/19 20:57 Dose: 4 mg Pantoprazole Sodium (Protonix Iv) 40 mg IV Q24H [facility] Last Admin: 03/10/19 18:23 Dose: 40 mg Sodium Chloride (Jospeh 128 5% Ophth Soln) 0 ml EYEBOTH QID [facility] Last Admin: 03/11/19 05:50 Dose: 1 drop Discontinued Medications Bupivacaine HCl (Marcaine 0.5%) Confirm Administered Dose 50 ml .ROUTE .STK-MED ONE Stop: 03/10/19 06:23 Bupivacaine HCl (Marcaine 0.5%) Confirm Administered Dose 50 ml .ROUTE .STK-MED ONE Stop: 03/11/19 07:19 Last Admin: 03/11/19 07:28 Dose: 15 ml Ropivacaine 36 ml/Dexamethasone 8 mg/Epinephrine HCl 0.4 mg/ Sodium Chloride 41.6 ml 0 ml NERVRT ASDIRECTED [facility] Last Admin: 03/08/19 15:05 Dose: 80 syringe Dexamethasone (Dexamethasone) Confirm Administered Dose 4 mg .ROUTE .STK-MED ONE Stop: 03/08/19 12:18 Diphenhydramine HCl (Benadryl) 25 mg IVPUSH Q6H PRN PRN Reason: Itching Diphenhydramine HCl (Benadryl) 25 mg PO Q6H PRN PRN Reason: Itching Fentanyl (Sublimaze) Confirm Administered Dose 250 mcg .ROUTE .STK-MED ONE Stop: 03/08/19 12:19 Furosemide (Lasix) 20 mg IVPUSH ONETIME ONE Stop: 03/09/19 21:56 Last Admin: 03/09/19 22:10 Dose: 20 mg Furosemide (Lasix) Confirm Administered Dose 20 mg .ROUTE .STK-MED ONE Stop: 03/09/19 22:05 Last Admin: 03/09/19 22:10 Dose: Not Given Furosemide (Lasix) 20 mg IVPUSH ONETIME ONE Stop: 03/10/19 06:33 Last Admin: 03/10/19 07:20 Dose: 20 mg Glycopyrrolate (Robinul) Confirm Administered Dose 1 mg .ROUTE .STK-MED ONE Stop: 03/08/19 12:18 Haloperidol Lactate (Haldol) 5 mg IVPUSH BID [facility] Last Admin: 03/09/19 09:06 Dose: 5 mg Heparin Sodium (Porcine) (Heparin Sodium) Confirm Administered Dose 5,000 units .ROUTE .[facility] ONE Stop: 03/10/19 07:04 Last Admin: 03/10/19 07:57 Dose: Not Given Heparin Sodium (Porcine) (Heparin Lock Flush 100 Units/Ml) Confirm Administered Dose 1,000 units .ROUTE .[facility] ONE Stop: 03/11/19 07:32 Last Admin: 03/11/19 08:31 Dose: Not Given Sodium Chloride (Normal Saline) 1,000 mls @ 1,000 mls/hr IV ASDIRECTED [facility] Last Admin: 03/08/19 10:02 Dose: 1,000 mls/hr Ampicillin Sodium/Sulbactam (Sodium 1.5 gm/ Sodium Chloride) 50 mls @ 100 mls/ hr IV Q6H [facility] Last Admin: 03/08/19 13:30 Dose: 100 mls/hr Aztreonam 1 gm/ Sodium (Chloride) 50 mls @ 100 mls/hr IV Q12H [facility] Last Admin: 03/08/19 13:30 Dose: 100 mls/hr Lactated Ringer's (Ringers, Lactated) 1,000 mls @ 150 mls/hr IV ASDIRECTED [facility] Last Admin: 03/08/19 13:31 Dose: 150 mls/hr Lactated Ringer's (Ringers, Lactated) Confirm Administered Dose 1,000 mls @ as directed .ROUTE .[facility] ONE Stop: 03/08/19 15:16 Lactated Ringer's (Ringers, Lactated) 1,000 mls @ 100 mls/hr IV ASDIRECTED [facility] Last Admin: 03/09/19 03:26 Dose: 100 mls/hr Potassium Chloride 20 meq/Lidocaine HCl 2 ml/ Sodium Chloride 112 mls @ 56 mls/ hr IV Q2H [facility] Stop: 03/09/19 15:59 Last Admin: 03/09/19 17:30 Dose: 56 mls/hr Lactated Ringer's (Ringers, Lactated) 750 mls @ 750 mls/hr IV BOLUS ONE Stop: 03/09/19 16:25 Last Admin: 03/09/19 15:53 Dose: 750 mls/hr Lactated Ringer's (Ringers, Lactated) 750 mls @ 999 mls/hr IV BOLUS ONE Stop: 03/09/19 21:15 Last Admin: 03/09/19 21:08 Dose: 999 mls/hr Potassium Chloride 20 meq/Lidocaine HCl 2 ml/ Sodium Chloride 112 mls @ 56 mls/ hr IV Q2H [facility] Stop: 03/10/19 16:29 Last Admin: 03/10/19 16:07 Dose: 56 mls/hr Potassium Chloride 20 meq/ (Premix) 0 mls @ 50 mls/hr IV Q2H [facility] Stop: 03/11/19 07:28 Last Admin: 03/11/19 07:32 Dose: 50 mls/hr Lidocaine HCl (Xylocaine-Mpf 1%) 5 ml INJECT ONETIME ONE Stop: 03/11/19 05:30 Last Admin: 03/11/19 05:39 Dose: 2 ml Lidocaine/Epinephrine (Xylocaine 1% With Epinephrine 1:100,000) Confirm Administered Dose 50 ml .ROUTE .STK-MED ONE Stop: 03/10/19 06:23 Lidocaine/Epinephrine (Xylocaine 1% With Epinephrine 1:100,000) Confirm Administered Dose 50 ml .ROUTE .STK-MED ONE Stop: 03/11/19 07:19 Last Admin: 03/11/19 07:28 Dose: 15 ml Linezolid (Zyvox) 600 mg IRR .STK-MED ONE Stop: 03/11/19 07:39 Last Admin: 03/11/19 07:38 Dose: 600 mg Lorazepam (Ativan) 0.5 mg IVPUSH BID [facility] Last Admin: 03/09/19 09:09 Dose: 0.5 mg Lorazepam (Ativan) 0.25 mg IVPUSH BID [facility] Last Admin: 03/10/19 09:09 Dose: 0.25 mg Meropenem (Merrem) Confirm Administered Dose 500 mg .ROUTE .STK-MED ONE Stop: 03/08/19 12:05 Last Admin: 03/08/19 14:00 Dose: 500 mg Meropenem (Merrem) Confirm Administered Dose 500 mg .ROUTE .STK-MED ONE Stop: 03/10/19 06:23 Meropenem (Merrem) Confirm Administered Dose 500 mg .ROUTE .STK-MED ONE Stop: 03/11/19 06:45 Last Admin: 03/11/19 07:38 Dose: 500 mg Neostigmine Methylsulfate (Neostigmine) Confirm Administered Dose 5 mg .ROUTE .STK-MED ONE Stop: 03/08/19 12:18 Ondansetron HCl (Zofran) Confirm Administered Dose 4 mg .ROUTE .STK-MED ONE Stop: 03/08/19 12:18 Ondansetron HCl (Zofran) 4 mg IVPUSH Q6H PRN PRN Reason: Nausea/Vomiting Propofol (Diprivan 20 Ml) Confirm Administered Dose 200 mg .ROUTE .STK-MED ONE Stop: 03/08/19 12:18 Propofol (Diprivan 20 Ml) Confirm Administered Dose 200 mg .ROUTE .STK-MED ONE Stop: 03/10/19 07:33 Rocuronium [place] (Zemuron) Confirm Administered Dose 50 mg .ROUTE .STK-MED ONE Stop: 03/08/19 12:18 Succinylcholine Chloride (Quelicin) Confirm Administered Dose 200 mg .ROUTE .STK -MED ONE Stop: 03/08/19 12:18 Succinylcholine Chloride (Quelicin) Confirm Administered Dose 200 mg .ROUTE .STK -MED ONE Stop: 03/10/19 07:33 - Exam Quality Assessment: Supplemental Oxygen General: No Acute Distress, Sedated. No: Alert Lungs: Clear to Auscultation, Normal Respiratory Effort Cardiovascular: Regular Rate, Regular Rhythm GI/Abdominal Exam: Soft, No Distention, Abnormal Bowel Sounds (hypoactive ) Extremities: No Pedal Edema. No: Increased Warmth Peripheral Pulses: 1+: Dorsalis Pedis (L), Dorsalis Pedis (R) Skin: Warm, Dry Psy/Mental Status: No: Alert, Agitated - Problem List & Annotations (1) Small bowel obstruction due to adhesions SNOMED Code(s): 436500725 Code(s): K56.50 - INTESTNL ADHESIONS, UNSP TO PARTIAL VERSUS COMPLETE OBST Status: Acute Current Visit: Yes (2) Acute kidney injury SNOMED Code(s): 25536748, 06071687 Code(s): N17.9 - ACUTE KIDNEY FAILURE, UNSPECIFIED Status: Acute Current Visit: Yes (3) Schizophrenia SNOMED Code(s): 89850126 Code(s): F20.9 - SCHIZOPHRENIA, UNSPECIFIED Status: Chronic Current Visit : No Qualifiers: Schizophrenia type: unspecified Qualified Code(s): F20.9 - Schizophrenia, unspecified (4) Hypothyroid SNOMED Code(s): 45663379 Code(s): E03.9 - HYPOTHYROIDISM, UNSPECIFIED Status: Chronic Current Visit: No Qualifiers: Hypothyroidism type: acquired Qualified Code(s): E03.9 - Hypothyroidism, unspecified (5) HTN (hypertension) SNOMED Code(s): 63423437 Code(s): I10 - ESSENTIAL (PRIMARY) HYPERTENSION Status: Chronic Current Visit: No Qualifiers: Hypertension type: essential hypertension Qualified Code(s): I10 - Essential (primary) hypertension - Problem List Review Problem List Initiated/Reviewed/Updated: Yes - My Orders Last 24 Hours: My Active Orders 03/10/19 09:27 Mechanical Ventilation [RT Ventilator, Adult] [RC] Q2H 03/10/19 09:28 Nrsg Assess Restraint Init/Mon [RC] Q2HR 03/10/19 09:30 Initiate/Renew Non-Violent Restraints (All Ages) Q24H 03/10/19 21:00 LORazepam [Ativan] 0.5 mg IVPUSH BID 03/11/19 10:00 BLOOD GAS ARTERIAL [BG] Timed 03/11/19 20:00 POTASSIUM,K [CHEM] Timed 03/12/19 05:00 BASIC METABOLIC PANEL,BMP [CHEM] Timed BLOOD GAS ARTERIAL [BG] Timed CBC W/O DIFF,HEMOGRAM [HEME] Timed (1) - Plan Plan:: ASSESSMENT AND PLAN - Small bowel obstruction with pneumatosis - status post emergent laparotomy with small bowel resection and right colectomy 03/08. Pain appears controlled. NG tube is draining a fair amount of fluid at this time. No fevers. -Postoperative care per surgical team -IV fluids -Pain control -Antibiotic coverage with Unasyn and aztreonam -NG tube drainage Acute respiratory failure with hypoxia - 2/2 schizophrenia and weakness. Not able to cough effectively. Decreasing FiO2 requirements overnight. He did have a metabolic alkalosis and this has been improving with ventilator adjustments. -cont mechanical ventilation -propofol sedation -f/u culture Hypokalemia - significant hypokalemia noted this morning, probably related to diuresis and dilution as well as poor intake. He has had some replacement and will need additional replacement throughout the day. -Replace as ordered -Recheck potassium tonight Severe schizophrenia - patient is very debilitated because of his psychiatric illness. Psych illness has contributed to resp decline and will be a very large barrier to extubation. -Continue low-dose Haldol -Continue regular dose Depakote -low dose lorazepam Acute kidney injury - due to poor intake and small bowel obstruction. Creatinine slowly declining. -continue gentle IV fluid resuscitation -Repeat labs in the morning Maintenance issues - - DVT prophylaxis - mechanical - GI prophylaxis - IV PPI - Nutrition - nothing by mouth - Rodriguez catheter - placed for strict intake and output monitoring with a critical patient Disposition - anticipate discharge home versus more likely the correction Farhan Nj M.D.
[2019-03-11] MEDS: Linezolid 600 MG in Premix Bag 1 BAG IV SCH ×2 (10:22→21:53)
--- NOTE | 2019-03-11 11:17 | PN ---
DATE OF SERVICE: 03/10/2019 Overnight, the patient has had progressive problems with clearing of secretions and became progressively more hypoxic. Given this, decision was made to proceed to intubate and mechanical ventilation. This was then initiated. Chest x-ray and blood gases are pending. We will obtain fresh Gram stains on his sputum after the intubation, which will be a clear read on the sputum than we got last night and then adjust the antibiotics according to that. Otherwise, A-line will be placed and nasogastric tube will be placed as well. I will hold on delayed primary closure until tomorrow, at which time we will do that at the bedside, and perhaps place a central line at that time as well. Otherwise, continue management with assistance of Dr. Nj. Haider Monae MD /[id number]
--- NOTE | 2019-03-11 11:38 | PN ---
DATE OF SERVICE: 03/09/2019 The patient has been afebrile with stable vital signs with blood pressures that tended to be around the low side and did have one of his Lopressor doses held. Otherwise, NG output is relatively moderate, but we will go ahead and place for today along with a Rodriguez catheter in the anticipation of a delayed primary closure of the abdominal incision tomorrow. Creatinine is now at 2.3. Potassium and chloride are both low and those will be supplemented and otherwise continue the psych medication replacement predominantly through an IV route per Dr. Nj. Haider Monae MD /[id number]
--- NOTE | 2019-03-11 13:20 | PN ---
DATE OF SERVICE: 03/11/2019 The patient has been afebrile with stable vital signs. Mood appears to be a little bit better today. Oral intake was not much yesterday, but did not seem to increase the BOLA output to any extent, both only 10 mL over the 24-hour period. We will try to encourage increased oral intake today. If this occurs without having much in the way of change in the BOLA output, we may be able to have this adjusted with tidal volume, and repeat blood gases are pending. Otherwise, secretions are fairly thick, and we will add some Mucomyst along with DuoNebs today. Central line will be placed to facilitate ongoing care and the wound closed later today. We will likely need to begin some TPN tomorrow. Labs show low potassium and quite low phosphate, and these will be supplemented, and magnesium is marginally low as well. We will begin some range of motion to the limbs and continue the present antibiotics, pending C and S reports. Haider Monae MD /[id number]
[2019-03-11] MEDS: Pantoprazole 40 MG Vial IV SCH (18:08)
[2019-03-11] MEDS: Latanoprost 0.005% Ophth Soln 2.5 ML Bottle EYEBOTH SCH (20:50)
[2019-03-12] MEDS: Ampicillin/Sulbactam Na 3 GM in Sodium Chloride 0.9% 100 ML IV SCH ×5 (00:06→23:52)
[2019-03-12] MEDS: Metoprolol Tartrate 5 MG/5 ML SDV IV SCH ×5 (00:07→23:52)
[2019-03-12] MEDS: Magnesium Sulfate/Water 2 GM in Premix Bag 1 BAG IV SCH (04:27)
--- NOTE | 2019-03-12 05:05 | CRLCR ---
INDICATION: Intubation. Portable chest. COMPARISON: Chest x-ray 03/11/2019. Findings: Stable cardiac mediastinal silhouette. Support lines and tubes are unchanged. Mild perihilar interstitial opacities may represent pulmonary edema. Bilateral small effusions basilar atelectasis. No pneumothorax is seen. Overall no significant change. Dictated by Domi Connolly MD @ Mar 12 2019 5:02AM Signed by Dr. Domi Connolly @ Mar 12 2019 5:04AM
[2019-03-12] MEDS: Sodium Chloride 5% Ophth Soln 15 ML Bottle EYEBOTH SCH ×4 (05:15→21:57)
[2019-03-12] MEDS ORDERED: Furosemide 20 MG/2 ML VIAL IVPUSH ONE ×2 (07:30→18:00)
[2019-03-12] MEDS: Potassium Phosphates 20 MMOLE in Sodium Chloride 0.9% 250 ML IV SCH ×3 (07:44→14:49)
[2019-03-12] MEDS: Albuterol/Ipratropium 3.0-0.5 MG/3 ML Neb Soln INH SCH ×4 (07:48→20:44)
[2019-03-12] MEDS: Acetylcysteine 20% 200 MG/ML 4 ML Nebulizer Soln SDV INH SCH (07:48)
--- NOTE | 2019-03-12 08:54 | PCM.PN ---
- General Info Date of Service: 03/12/19 Subjective Update: There were no acute events overnight. Patient has rested comfortably on the ventilator and remains intubated and lightly sedated. He will open his eyes and look at my direction when I'm talking to him. He has not had any fevers. Heart rate has remained in the normal range. Urine output has been good. Chest x-ray this morning showed mild pulmonary congestion. Potassium level remains low. Peak inspiratory pressures are around 20. He is on 45% FiO2. Functional Status: Reports: Pain Controlled - Review of Systems General: Denies: Fever - Patient Data Vitals - Most Recent: Last Vital Signs Temp 36.4 C 03/12/19 08:00 Pulse 95 03/12/19 07:51 Resp 14 03/12/19 08:00 BP 106/72 03/12/19 08:00 Pulse Ox 90 L 03/12/19 08:00 Weight - Most Recent: 78.1 kg I&O - Last 24 Hours: Intake & Output 03/11/19 03/12/19 03/12/19 22:59 06:59 14:59 Intake Total 2435 2259 Output Total 1360 767 350 Balance 1075 1492 -350 Lab Results Last 24 Hours: Laboratory Results - last 24 hr 03/09/19 03/11/19 03/11/19 Range/Units 05:11 08:50 10:00 WBC (4.5-11.0) K/uL RBC (4.30-5.90) M/uL Hgb (12.0-15.0) g/dL Hct (40.0-54.0) % MCV (80-98) fL MCH (27-31) pg MCHC (32-36) % Plt Count (150-400) K/uL Puncture Site A-line A-line ABG pH 7.643 H* 7.531 H (7.350-7.450) ABG pCO2 28.2 L 37.3 (35.0-42.0) mmHg ABG pO2 54.1 L 72.8 L (75.0-100.0) mmHg ABG HCO3 31.0 H 31.1 H (22.0-26.0) mmol/L ABG Total CO2 27.2 H 28.1 H (23.0-27.0) mmol/L ABG O2 Saturation 91.6 L 95.0 (95.0-98.0) % ABG O2 Content 14.4 L 13.8 L (15.0-23.0) %vol ABG Base Excess 9.7 8.0 mm/L ABG Hemoglobin 11.4 L 10.5 L (13.5-18.0) g/dL ABG Oxyhemoglobin 89.9 93.3 % ABG Carboxyhemoglobin 0.9 0.6 (0.0-1.6) % ABG Methemoglobin 1.0 1.2 % Andrew Test A-line Not performed O2 Delivery Device Ventilator Ventilator Oxygen Flow Rate L Sodium (140-148) mmol/L Potassium (3.6-5.2) mmol/L Chloride (100-108) mmol/L Carbon Dioxide (21-32) mmol/L Anion Gap (5.0-14.0) mmol/L BUN (7-18) mg/dL Creatinine (0.8-1.3) mg/dL Est Cr Clr Drug Dosing mL/min Estimated GFR (MDRD) (>60) Glucose (74-106) mg/dL Calcium (8.5-10.1) mg/dL Magnesium 6.6 (4.2-6.8) mg/dL 03/11/19 03/11/19 03/12/19 Range/Units 12:00 20:00 05:47 WBC 16.3 H (4.5-11.0) K/uL RBC 3.58 L (4.30-5.90) M/uL Hgb 10.3 L (12.0-15.0) g/dL Hct 32.7 L (40.0-54.0) % MCV 91 (80-98) fL MCH 29 (27-31) pg MCHC 32 (32-36) % Plt Count 198 (150-400) K/uL Puncture Site A-line ABG pH 7.451 H (7.350-7.450) ABG pCO2 45.2 H (35.0-42.0) mmHg ABG pO2 77.6 (75.0-100.0) mmHg ABG HCO3 31.1 H (22.0-26.0) mmol/L ABG Total CO2 28.6 H (23.0-27.0) mmol/L ABG O2 Saturation 94.5 L (95.0-98.0) % ABG O2 Content 13.4 L (15.0-23.0) %vol ABG Base Excess 6.7 mm/L ABG Hemoglobin 10.1 L (13.5-18.0) g/dL ABG Oxyhemoglobin 93.1 % ABG Carboxyhemoglobin 0.3 (0.0-1.6) % ABG Methemoglobin 1.2 % Andrew Test N/a O2 Delivery Device Ventilator Oxygen Flow Rate L Sodium (140-148) mmol/L Potassium 4.0 (3.6-5.2) mmol/L Chloride (100-108) mmol/L Carbon Dioxide (21-32) mmol/L Anion Gap (5.0-14.0) mmol/L BUN (7-18) mg/dL Creatinine (0.8-1.3) mg/dL Est Cr Clr Drug Dosing mL/min Estimated GFR (MDRD) (>60) Glucose (74-106) mg/dL Calcium (8.5-10.1) mg/dL Magnesium (4.2-6.8) mg/dL 03/12/19 03/12/19 Range/Units 05:47 05:47 WBC (4.5-11.0) K/uL RBC (4.30-5.90) M/uL Hgb (12.0-15.0) g/dL Hct (40.0-54.0) % MCV (80-98) fL MCH (27-31) pg MCHC (32-36) % Plt Count (150-400) K/uL Puncture Site Line ABG pH 7.480 H (7.350-7.450) ABG pCO2 39.2 (35.0-42.0) mmHg ABG pO2 72.2 L (75.0-100.0) mmHg ABG HCO3 28.9 H (22.0-26.0) mmol/L ABG Total CO2 26.3 (23.0-27.0) mmol/L ABG O2 Saturation 94.4 L (95.0-98.0) % ABG O2 Content 13.7 L (15.0-23.0) %vol ABG Base Excess 5.4 mm/L ABG Hemoglobin 10.5 L (13.5-18.0) g/dL ABG Oxyhemoglobin 92.4 % ABG Carboxyhemoglobin 1.0 (0.0-1.6) % ABG Methemoglobin 1.1 % Andrew Test O2 Delivery Device Ventilator Oxygen Flow Rate L Sodium 143 (140-148) mmol/L Potassium 3.5 L (3.6-5.2) mmol/L Chloride 106 (100-108) mmol/L Carbon Dioxide 31 (21-32) mmol/L Anion Gap 9.5 (5.0-14.0) mmol/L BUN 16 (7-18) mg/dL Creatinine 1.3 (0.8-1.3) mg/dL Est Cr Clr Drug Dosing 51.86 mL/min Estimated GFR (MDRD) 57 L (>60) Glucose 184 H (74-106) mg/dL Calcium 7.7 L (8.5-10.1) mg/dL Magnesium (4.2-6.8) mg/dL Quentin Results Last 24 Hours: Microbiology 03/10/19 07:30 Gram Stain - Final Endotrachael Aspirate Respiratory Culture - Final NORMAL RESPIRATORY KANIKA 2 DAYS 03/09/19 23:08 Gram Stain - Final Other - Deep Respiratory Culture - Final NORMAL RESPIRATORY KANIKA 2 DAYS 03/08/19 14:00 Gram Stain - Final Pelvic Fluid Wound Culture - Final NO GROWTH AFTER 3 DAYS Anaerobic Culture - Final NO GROWTH AFTER 3 DAYS Med Orders - Current: Current Medications Acetylcysteine (Mucomyst 20%) 200 mg INH BIDRT [facility] Stop: 03/12/19 23:59 Albuterol (Proventil Neb Soln) 2.5 mg NEB Q4H PRN PRN Reason: Shortness Of Breath/wheezing Last Admin: 03/10/19 00:24 Dose: 2.5 mg Albuterol/Ipratropium (Duoneb 3.0-0.5 Mg/3 Ml) 3 ml INH QIDRT [facility] Last Admin: 03/12/19 07:48 Dose: 3 ml Diphenhydramine HCl (Benadryl) 25 mg IVPUSH Q4H PRN PRN Reason: Itching Furosemide (Lasix) 20 mg IVPUSH ONETIME ONE Stop: 03/12/19 18:01 Haloperidol Lactate (Haldol) 2 mg IVPUSH Q4H PRN PRN Reason: Agitation Haloperidol Lactate (Haldol) 2.5 mg IVPUSH BID [facility] Last Admin: 03/11/19 20:47 Dose: 2.5 mg Heparin Sodium (Porcine) (Heparin Lock Flush 100 Units/Ml) 500 units FLUSH ASDIRECTED PRN PRN Reason: Keep Vein Open Last Admin: 03/11/19 08:30 Dose: 500 units Hydromorphone HCl (Dilaudid Manager Care 15 Mg In Ns 30 Ml) 0 mg IV ASDIRECTED PRN; Protocol PRN Reason: PAIN Last Admin: 03/08/19 16:52 Dose: 15 mg Dextrose/Lactated Ringer's (Dextrose 5%-Lactated Ringers) 1,000 mls @ 100 mls/ hr IV ASDIRECTED [facility] Stop: 03/12/19 11:59 Last Admin: 03/11/19 23:35 Dose: 100 mls/hr Ampicillin Sodium/Sulbactam (Sodium 3 gm/ Sodium Chloride) 100 mls @ 200 mls/ hr IV Q6H [facility] Last Admin: 03/12/19 05:43 Dose: 200 mls/hr Aztreonam 1 gm/ Sodium (Chloride) 50 mls @ 100 mls/hr IV Q8H [facility] Last Admin: 03/12/19 04:27 Dose: 100 mls/hr Valproic Acid 500 mg/ Sodium (Chloride) 55 mls @ 55 mls/hr IV Q8H [facility] Last Admin: 03/12/19 05:13 Dose: 55 mls/hr Heparin Sodium (Porcine) 5,000 (units/ Sodium Chloride) 501 mls @ 5 mls/hr IV ASDIRECTED [facility] Last Admin: 03/10/19 07:58 Dose: 5 mls/hr Propofol (Diprivan 100 Ml) 100 mls @ 2.191 mls/hr IV TITRATE [facility]; Protocol Last Titration: 03/12/19 05:45 Dose: 20 mcg/kg/min, 8.763 mls/hr Multivitamins/Minerals 10 ml/Chromium/Copper/Manganese/Seleni/Zn 1 ml/ Amino Ac/ Electrol/Dextrose/Calcium 1,011 mls @ 82 mls/hr IV .BY DURATION [facility] Amino Ac/Electrol/Dextrose/Calcium (Clinimix E 5/15) 1,000 mls @ 82 mls/hr IV .BY DURATION [facility] Sodium Chloride (Normal Saline) 1,000 mls @ 20 mls/hr IV ASDIRECTED [facility] Potassium Phosphate 20 mmole/ (Sodium Chloride) 256.6667 mls @ 85.556 mls/hr IV Q3H [facility] Stop: 03/12/19 16:59 Last Admin: 03/12/19 07:44 Dose: 85.556 mls/hr Latanoprost (Xalatan 0.005% Ophth Soln) 0 ml EYEBOTH BEDTIME [facility] Last Admin: 03/11/19 20:50 Dose: 1 drop Lorazepam (Ativan) 0.5 mg IVPUSH Q4H PRN PRN Reason: Anxiety Lorazepam (Ativan) 0.5 mg IVPUSH BID [facility] Last Admin: 03/11/19 20:50 Dose: 0.5 mg Metoprolol Tartrate (Lopressor) 5 mg IV Q6H [facility] Last Admin: 03/12/19 05:15 Dose: 5 mg Naloxone HCl (Narcan) 0.1 mg IV ASDIRECTED PRN PRN Reason: decreased respiratory rate Ondansetron HCl (Zofran) 4 mg IVPUSH Q4H PRN PRN Reason: Nausea/Vomiting Last Admin: 03/09/19 20:57 Dose: 4 mg Pantoprazole Sodium (Protonix Iv) 40 mg IV Q24H [facility] Last Admin: 03/11/19 18:08 Dose: 40 mg Sodium Chloride (Joseph 128 5% Ophth Soln) 0 ml EYEBOTH QID [facility] Last Admin: 03/12/19 05:15 Dose: 1 drop Discontinued Medications Acetylcysteine (Mucomyst 20%) 400 mg INH BIDRT [facility] Last Admin: 03/12/19 07:48 Dose: 200 mg Bupivacaine HCl (Marcaine 0.5%) Confirm Administered Dose 50 ml .ROUTE .STK-MED ONE Stop: 03/10/19 06:23 Bupivacaine HCl (Marcaine 0.5%) Confirm Administered Dose 50 ml .ROUTE .STK-MED ONE Stop: 03/11/19 07:19 Last Admin: 03/11/19 07:28 Dose: 15 ml Ropivacaine 36 ml/Dexamethasone 8 mg/Epinephrine HCl 0.4 mg/ Sodium Chloride 41.6 ml 0 ml NERVRT ASDIRECTED [facility] Last Admin: 03/08/19 15:05 Dose: 80 syringe Ropivacaine 36 ml/Dexamethasone 8 mg/Epinephrine HCl 0.4 mg/ Sodium Chloride 41.6 ml 0 ml NERVRT ASDIRECTED [facility] Last Admin: 03/11/19 07:41 Dose: 80 syringe Dexamethasone (Dexamethasone) Confirm Administered Dose 4 mg .ROUTE .STK-MED ONE Stop: 03/08/19 12:18 Diphenhydramine HCl (Benadryl) 25 mg IVPUSH Q6H PRN PRN Reason: Itching Diphenhydramine HCl (Benadryl) 25 mg PO Q6H PRN PRN Reason: Itching Fentanyl (Sublimaze) Confirm Administered Dose 250 mcg .ROUTE .STK-MED ONE Stop: 03/08/19 12:19 Furosemide (Lasix) 20 mg IVPUSH ONETIME ONE Stop: 03/09/19 21:56 Last Admin: 03/09/19 22:10 Dose: 20 mg Furosemide (Lasix) Confirm Administered Dose 20 mg .ROUTE .ST-MED ONE Stop: 03/09/19 22:05 Last Admin: 03/09/19 22:10 Dose: Not Given Furosemide (Lasix) 20 mg IVPUSH ONETIME ONE Stop: 03/10/19 06:33 Last Admin: 03/10/19 07:20 Dose: 20 mg Furosemide (Lasix) 20 mg IVPUSH ONETIME ONE Stop: 03/12/19 07:31 Last Admin: 03/12/19 07:44 Dose: 20 mg Glycopyrrolate (Robinul) Confirm Administered Dose 1 mg .ROUTE .STK-MED ONE Stop: 03/08/19 12:18 Haloperidol Lactate (Haldol) 5 mg IVPUSH BID [facility] Last Admin: 03/09/19 09:06 Dose: 5 mg Heparin Sodium (Porcine) (Heparin Sodium) Confirm Administered Dose 5,000 units .ROUTE .STK-MED ONE Stop: 03/10/19 07:04 Last Admin: 03/10/19 07:57 Dose: Not Given Heparin Sodium (Porcine) (Heparin Lock Flush 100 Units/Ml) Confirm Administered Dose 1,000 units .ROUTE .STK-MED ONE Stop: 03/11/19 07:32 Last Admin: 03/11/19 08:31 Dose: Not Given Sodium Chloride (Normal Saline) 1,000 mls @ 1,000 mls/hr IV ASDIRECTED [facility] Last Admin: 03/08/19 10:02 Dose: 1,000 mls/hr Ampicillin Sodium/Sulbactam (Sodium 1.5 gm/ Sodium Chloride) 50 mls @ 100 mls/ hr IV Q6H [facility] Last Admin: 03/08/19 13:30 Dose: 100 mls/hr Aztreonam 1 gm/ Sodium (Chloride) 50 mls @ 100 mls/hr IV Q12H [facility] Last Admin: 03/08/19 13:30 Dose: 100 mls/hr Lactated Ringer's (Ringers, Lactated) 1,000 mls @ 150 mls/hr IV ASDIRECTED [facility] Last Admin: 03/08/19 13:31 Dose: 150 mls/hr Lactated Ringer's (Ringers, Lactated) Confirm Administered Dose 1,000 mls @ as directed .ROUTE .STK-MED ONE Stop: 03/08/19 15:16 Lactated Ringer's (Ringers, Lactated) 1,000 mls @ 100 mls/hr IV ASDIRECTED [facility] Last Admin: 03/09/19 03:26 Dose: 100 mls/hr Potassium Chloride 20 meq/Lidocaine HCl 2 ml/ Sodium Chloride 112 mls @ 56 mls/ hr IV Q2H [facility] Stop: 03/09/19 15:59 Last Admin: 03/09/19 17:30 Dose: 56 mls/hr Lactated Ringer's (Ringers, Lactated) 750 mls @ 750 mls/hr IV BOLUS ONE Stop: 03/09/19 16:25 Last Admin: 03/09/19 15:53 Dose: 750 mls/hr Lactated Ringer's (Ringers, Lactated) 750 mls @ 999 mls/hr IV BOLUS ONE Stop: 03/09/19 21:15 Last Admin: 03/09/19 21:08 Dose: 999 mls/hr Linezolid 600 mg/ Premix 300 mls @ 300 mls/hr IV Q12H [facility] Last Admin: 03/11/19 21:53 Dose: 300 mls/hr Potassium Chloride 20 meq/Lidocaine HCl 2 ml/ Sodium Chloride 112 mls @ 56 mls/ hr IV Q2H [facility] Stop: 03/10/19 16:29 Last Admin: 03/10/19 16:07 Dose: 56 mls/hr Potassium Chloride 20 meq/ (Premix) 0 mls @ 50 mls/hr IV Q2H [facility] Stop: 03/11/19 07:28 Last Admin: 03/11/19 07:32 Dose: 50 mls/hr Magnesium Sulfate 2 gm/ Premix 50 mls @ 25 mls/hr IV Q6H [facility] Last Admin: 03/12/19 04:27 Dose: 25 mls/hr Potassium Phosphate 20 mmole/ (Sodium Chloride) 256.6667 mls @ 85 mls/hr IV Q3H [facility] Stop: 03/11/19 17:59 Last Admin: 03/11/19 14:42 Dose: 85 mls/hr Lidocaine HCl (Xylocaine-Mpf 1%) 5 ml INJECT ONETIME ONE Stop: 03/11/19 05:30 Last Admin: 03/11/19 05:39 Dose: 2 ml Lidocaine/Epinephrine (Xylocaine 1% With Epinephrine 1:100,000) Confirm Administered Dose 50 ml .ROUTE .STK-MED ONE Stop: 03/10/19 06:23 Lidocaine/Epinephrine (Xylocaine 1% With Epinephrine 1:100,000) Confirm Administered Dose 50 ml .ROUTE .STK-MED ONE Stop: 03/11/19 07:19 Last Admin: 03/11/19 07:28 Dose: 15 ml Linezolid (Zyvox) 600 mg IRR .STK-MED ONE Stop: 03/11/19 07:39 Last Admin: 03/11/19 07:38 Dose: 600 mg Lorazepam (Ativan) 0.5 mg IVPUSH BID [facility] Last Admin: 03/09/19 09:09 Dose: 0.5 mg Lorazepam (Ativan) 0.25 mg IVPUSH BID [facility] Last Admin: 03/10/19 09:09 Dose: 0.25 mg Meropenem (Merrem) Confirm Administered Dose 500 mg .ROUTE .STK-MED ONE Stop: 03/08/19 12:05 Last Admin: 03/08/19 14:00 Dose: 500 mg Meropenem (Merrem) Confirm Administered Dose 500 mg .ROUTE .STK-MED ONE Stop: 03/10/19 06:23 Meropenem (Merrem) Confirm Administered Dose 500 mg .ROUTE .STK-MED ONE Stop: 03/11/19 06:45 Last Admin: 03/11/19 07:38 Dose: 500 mg Neostigmine Methylsulfate (Neostigmine) Confirm Administered Dose 5 mg .ROUTE .STK-MED ONE Stop: 03/08/19 12:18 Ondansetron HCl (Zofran) Confirm Administered Dose 4 mg .ROUTE .STK-MED ONE Stop: 03/08/19 12:18 Ondansetron HCl (Zofran) 4 mg IVPUSH Q6H PRN PRN Reason: Nausea/Vomiting Propofol (Diprivan 20 Ml) Confirm Administered Dose 200 mg .ROUTE .STK-MED ONE Stop: 03/08/19 12:18 Propofol (Diprivan 20 Ml) Confirm Administered Dose 200 mg .ROUTE .STK-MED ONE Stop: 03/10/19 07:33 Rocuronium [place] (Zemuron) Confirm Administered Dose 50 mg .ROUTE .STK-MED ONE Stop: 03/08/19 12:18 Succinylcholine Chloride (Quelicin) Confirm Administered Dose 200 mg .ROUTE .STK -MED ONE Stop: 03/08/19 12:18 Succinylcholine Chloride (Quelicin) Confirm Administered Dose 200 mg .ROUTE .STK -MED ONE Stop: 03/10/19 07:33 - Exam Quality Assessment: Supplemental Oxygen General: Alert, No Acute Distress, Sedated. No: Cooperative HEENT: Pupils Equal Lungs: Clear to Auscultation, Normal Respiratory Effort, Decreased Breath Sounds (left lung base) Cardiovascular: Regular Rate, Regular Rhythm GI/Abdominal Exam: Soft, No Distention, Abnormal Bowel Sounds (hypoactive but present ) Extremities: Pedal Edema (mild both legs ). No: Increased Warmth Skin: Warm, Dry Psy/Mental Status: Alert (will track to voice ). No: Agitated - Problem List & Annotations (1) Small bowel obstruction due to adhesions SNOMED Code(s): 322090605 Code(s): K56.50 - INTESTNL ADHESIONS, UNSP TO PARTIAL VERSUS COMPLETE OBST Status: Acute Current Visit: Yes (2) Acute kidney injury SNOMED Code(s): 92912831, 45499621 Code(s): N17.9 - ACUTE KIDNEY FAILURE, UNSPECIFIED Status: Acute Current Visit: Yes (3) Schizophrenia SNOMED Code(s): 70513877 Code(s): F20.9 - SCHIZOPHRENIA, UNSPECIFIED Status: Chronic Current Visit : No Qualifiers: Schizophrenia type: unspecified Qualified Code(s): F20.9 - Schizophrenia, unspecified (4) Hypothyroid SNOMED Code(s): 60557828 Code(s): E03.9 - HYPOTHYROIDISM, UNSPECIFIED Status: Chronic Current Visit: No Qualifiers: Hypothyroidism type: acquired Qualified Code(s): E03.9 - Hypothyroidism, unspecified (5) HTN (hypertension) SNOMED Code(s): 91228002 Code(s): I10 - ESSENTIAL (PRIMARY) HYPERTENSION Status: Chronic Current Visit: No Qualifiers: Hypertension type: essential hypertension Qualified Code(s): I10 - Essential (primary) hypertension - Problem List Review Problem List Initiated/Reviewed/Updated: Yes - My Orders Last 24 Hours: My Active Orders 03/12/19 21:00 Acetylcysteine [Mucomyst 20%] 200 mg INH BIDRT - Plan Plan:: ASSESSMENT AND PLAN - Small bowel obstruction with pneumatosis - status post emergent laparotomy with small bowel resection and right colectomy 03/08. Pain appears controlled. NG tube drainage has slowed down some but remains moderate in quantity. -Postoperative care per surgical team -Gentle IV fluids -Pain control -Antibiotic coverage with Unasyn and aztreonam -NG tube drainage Acute respiratory failure with hypoxia - 2/2 schizophrenia and weakness. Not able to cough effectively. Some pulmonary congestion noted on chest x-ray today. Respiratory culture negative so far. -Furosemide twice daily -cont mechanical ventilation -Consider weaning trial in the morning -propofol sedation -f/u culture Hypokalemia - potassium level improving with supplementation but does remain low. Likely contribution from recent doses of furosemide. -Replace as ordered -Recheck in the morning Severe schizophrenia - patient is very debilitated because of his psychiatric illness. Psych illness has contributed to resp decline and will be a very large barrier to extubation. -Continue low-dose Haldol -Continue regular dose Depakote -low dose lorazepam Acute kidney injury - due to poor intake and small bowel obstruction. Creatinine slowly improving. -continue gentle IV fluid resuscitation -Repeat labs in the morning Maintenance issues - - DVT prophylaxis - mechanical - GI prophylaxis - IV PPI - Nutrition - nothing by mouth - Rodriguez catheter - placed for strict intake and output monitoring with a critical patient Disposition - anticipate discharge home versus more likely the [facility] Frahan Nj M.D.
[2019-03-12] MEDS: LORazepam 2 MG/ML SDV IVPUSH SCH ×2 (09:25→20:44)
[2019-03-12] MEDS: Haloperidol Lactate 5 MG/ML SDV IVPUSH SCH ×2 (09:53→20:45)
[2019-03-12] MEDS: 1: AA 5%/Calcium/D15W/Lytes 1,000 ML with MVI, Adult with Vitamin K 10 ML, Chromium/Copp IV SCH ×3 (11:43)
[2019-03-12] MEDS ORDERED: Sodium Chloride 0.9% 1,000 ML IV SCH (12:00)
[2019-03-12] MEDS: Heparin Sodium 5,000 UNITS in Sodium Chloride 0.9% 500 ML IV SCH (13:58)
[2019-03-12] MEDS: Pantoprazole 40 MG Vial IV SCH (17:39)
[2019-03-12] MEDS: Latanoprost 0.005% Ophth Soln 2.5 ML Bottle EYEBOTH SCH (20:43)
[2019-03-12] MEDS ORDERED: Acetylcysteine 20% 200 MG/ML 4 ML Nebulizer Soln SDV INH SCH (21:00)
[2019-03-12] MEDS: HYDROmorphone/Normal Saline 15 MG/30 ML PCA IV PRN (22:12)
[2019-03-13] MEDS: 1: AA 5%/Calcium/D15W/Lytes 1,000 ML with MVI, Adult with Vitamin K 10 ML, Chromium/Copp IV SCH ×6 (00:23→12:34)
--- NOTE | 2019-03-13 04:35 | CRLCR ---
Indication: Intubation Technique: Chest 1 view Comparison: March 12, 2019 Findings/Impression: Endotracheal tube tip terminates 4.7 cm above the level of the yair. Left subclavian central venous catheter tip terminates at the level of the cavoatrial junction. A gastric tube tip terminates at the level of the mid stomach. Volumes are low with atelectasis scattered throughout the right lung and at both lung bases. Mild to moderate bilateral pleural effusions appear stable. No pneumothorax identified. Dictated by Joyce Saravia MD @ Mar 13 2019 4:34AM Signed by Dr. Joyce Saravia @ Mar 13 2019 4:34AM
[2019-03-13] MEDS: Sodium Chloride 5% Ophth Soln 15 ML Bottle EYEBOTH SCH ×4 (05:19→21:41)
[2019-03-13] MEDS: Metoprolol Tartrate 5 MG/5 ML SDV IV SCH ×4 (05:19→23:38)
[2019-03-13] MEDS: Ampicillin/Sulbactam Na 3 GM in Sodium Chloride 0.9% 100 ML IV SCH (05:19)
[2019-03-13] MEDS: Albuterol/Ipratropium 3.0-0.5 MG/3 ML Neb Soln INH SCH ×4 (07:48→20:30)
[2019-03-13] MEDS ORDERED: Potassium Chloride 20 MEQ in Premix Bag 1 BAG IV ONE (09:00)
[2019-03-13] MEDS: LORazepam 2 MG/ML SDV IVPUSH SCH ×2 (09:11→20:31)
[2019-03-13] MEDS: Haloperidol Lactate 5 MG/ML SDV IVPUSH SCH ×2 (09:15→20:33)
--- NOTE | 2019-03-13 09:17 | PCM.PN ---
- General Info Date of Service: 03/13/19 Subjective Update: There were no acute events overnight. The patient rested comfortably on the ventilator. He remains intubated and sedated. Has not had any fevers. He has had episodes of coughing while on the ventilator and requires 100% FiO2 for a short period of time to recover. In general he has been at 45% FiO2. Ongoing but slightly less NG tube output. Heart rate has risen some since yesterday and is in the 90s. Respiratory culture grew out strep viridans and there is at least one additional organism that's being cultured and has yet to be identified. Kidney function back to normal. Functional Status: Reports: Pain Controlled - Review of Systems General: Denies: Fever - Patient Data Vitals - Most Recent: Last Vital Signs Temp 36.6 C 03/13/19 07:00 Pulse 108 H 03/13/19 07:52 Resp 14 03/13/19 09:00 BP 153/70 H 03/13/19 09:00 Pulse Ox 96 03/13/19 09:00 Weight - Most Recent: 77.927 kg I&O - Last 24 Hours: Intake & Output 03/12/19 03/13/19 03/13/19 22:59 06:59 14:59 Intake Total 2420 1988 Output Total 2510 2245 Balance -90 -257 Lab Results Last 24 Hours: Laboratory Results - last 24 hr 03/13/19 03/13/19 03/13/19 Range/Units 04:00 04:20 04:20 WBC 14.5 H (4.5-11.0) K/uL RBC 3.70 L (4.30-5.90) M/uL Hgb 10.7 L (12.0-15.0) g/dL Hct 34.0 L (40.0-54.0) % MCV 92 (80-98) fL MCH 29 (27-31) pg MCHC 32 (32-36) % Plt Count 230 (150-400) K/uL Puncture Site Line ABG pH 7.471 H (7.350-7.450) ABG pCO2 43.9 H (35.0-42.0) mmHg ABG pO2 91.9 (75.0-100.0) mmHg ABG HCO3 31.6 H (22.0-26.0) mmol/L ABG Total CO2 (23.0-27.0) mmol/L ABG Base Excess 7.7 mm/L Andrew Test Not Reportable O2 Delivery Device Ventilator Oxygen Flow Rate L Sodium (140-148) mmol/L Potassium (3.6-5.2) mmol/L Chloride (100-108) mmol/L Carbon Dioxide (21-32) mmol/L Anion Gap (5.0-14.0) mmol/L BUN (7-18) mg/dL Creatinine (0.8-1.3) mg/dL Est Cr Clr Drug Dosing mL/min Estimated GFR (MDRD) (>60) Glucose (74-106) mg/dL Calcium (8.5-10.1) mg/dL Phosphorus (2.5-4.9) mg/dL Total Bilirubin (0.2-1.0) mg/dL AST (15-37) U/L ALT (12-78) U/L Alkaline Phosphatase (46-116) U/L NT-Pro-B Natriuret Pep (5-125) pg/mL Total Protein (6.4-8.2) g/dL Albumin (3.4-5.0) g/dL Globulin (2.3-3.5) g/dL Albumin/Globulin Ratio (1.2-2.2) Free T4 1.38 (0.76-1.46) ng/dL Free T3 1.08 L (2.18-3.98) pg/dL TSH, Ultra Sensitive (0.358-3.740) uIU/mL 03/13/19 Range/Units 04:20 WBC (4.5-11.0) K/uL RBC (4.30-5.90) M/uL Hgb (12.0-15.0) g/dL Hct (40.0-54.0) % MCV (80-98) fL MCH (27-31) pg MCHC (32-36) % Plt Count (150-400) K/uL Puncture Site ABG pH (7.350-7.450) ABG pCO2 (35.0-42.0) mmHg ABG pO2 (75.0-100.0) mmHg ABG HCO3 (22.0-26.0) mmol/L ABG Total CO2 (23.0-27.0) mmol/L ABG Base Excess mm/L Andrew Test O2 Delivery Device Oxygen Flow Rate L Sodium 146 (140-148) mmol/L Potassium 3.8 (3.6-5.2) mmol/L Chloride 108 (100-108) mmol/L Carbon Dioxide 33 H (21-32) mmol/L Anion Gap 8.8 (5.0-14.0) mmol/L BUN 18 (7-18) mg/dL Creatinine 1.2 (0.8-1.3) mg/dL Est Cr Clr Drug Dosing 56.19 mL/min Estimated GFR (MDRD) > 60 (>60) Glucose 214 H (74-106) mg/dL Calcium 7.5 L (8.5-10.1) mg/dL Phosphorus 4.8 (2.5-4.9) mg/dL Total Bilirubin 0.2 (0.2-1.0) mg/dL AST 33 (15-37) U/L ALT 30 (12-78) U/L Alkaline Phosphatase 62 (46-116) U/L NT-Pro-B Natriuret Pep 1000 H (5-125) pg/mL Total Protein 4.5 L (6.4-8.2) g/dL Albumin 1.4 L (3.4-5.0) g/dL Globulin 3.1 (2.3-3.5) g/dL Albumin/Globulin Ratio 0.5 L (1.2-2.2) Free T4 (0.76-1.46) ng/dL Free T3 (2.18-3.98) pg/dL TSH, Ultra Sensitive 14.573 H (0.358-3.740) uIU/mL Quentin Results Last 24 Hours: Microbiology 03/09/19 23:08 Gram Stain - Final Other - Deep Respiratory Culture - Preliminary Viridans Streptococcus 03/10/19 07:30 Gram Stain - Final Endotrachael Aspirate Respiratory Culture - Final Viridans Streptococcus 03/08/19 14:00 Gram Stain - Final Pelvic Fluid Wound Culture - Final NO GROWTH AFTER 3 DAYS Anaerobic Culture - Final NO GROWTH AFTER 3 DAYS Med Orders - Current: Current Medications Albuterol (Proventil Neb Soln) 2.5 mg NEB Q4H PRN PRN Reason: Shortness Of Breath/wheezing Last Admin: 03/10/19 00:24 Dose: 2.5 mg Albuterol/Ipratropium (Duoneb 3.0-0.5 Mg/3 Ml) 3 ml INH QIDRT [facility] Last Admin: 03/13/19 07:48 Dose: 3 ml Diphenhydramine HCl (Benadryl) 25 mg IVPUSH Q4H PRN PRN Reason: Itching Furosemide (Lasix) 10 mg IVPUSH Q12H [facility] Stop: 03/13/19 21:01 Haloperidol Lactate (Haldol) 2 mg IVPUSH Q4H PRN PRN Reason: Agitation Haloperidol Lactate (Haldol) 2.5 mg IVPUSH BID [facility] Last Admin: 03/13/19 09:15 Dose: 2.5 mg Heparin Sodium (Porcine) (Heparin Lock Flush 100 Units/Ml) 500 units FLUSH ASDIRECTED PRN PRN Reason: Keep Vein Open Last Admin: 03/11/19 08:30 Dose: 500 units Hydromorphone HCl (Dilaudid Pot Sander 15 Mg In Ns 30 Ml) 0 mg IV ASDIRECTED PRN; Protocol PRN Reason: PAIN Last Admin: 03/12/19 22:12 Dose: 15 mg Ampicillin Sodium/Sulbactam (Sodium 3 gm/ Sodium Chloride) 100 mls @ 200 mls/ hr IV Q6H [facility] Last Admin: 03/13/19 05:19 Dose: 200 mls/hr Aztreonam 1 gm/ Sodium (Chloride) 50 mls @ 100 mls/hr IV Q8H [facility] Last Admin: 03/13/19 04:23 Dose: 100 mls/hr Valproic Acid 500 mg/ Sodium (Chloride) 55 mls @ 55 mls/hr IV Q8H [facility] Last Admin: 03/13/19 04:24 Dose: 55 mls/hr Heparin Sodium (Porcine) 5,000 (units/ Sodium Chloride) 501 mls @ 5 mls/hr IV ASDIRECTED [facility] Last Admin: 03/12/19 13:58 Dose: 5 mls/hr Propofol (Diprivan 100 Ml) 100 mls @ 2.191 mls/hr IV TITRATE [facility]; Protocol Last Admin: 03/13/19 06:31 Dose: 30 mcg/kg/min, 13.145 mls/hr Multivitamins/Minerals 10 ml/Chromium/Copper/Manganese/Seleni/Zn 1 ml/ Amino Ac/ Electrol/Dextrose/Calcium 1,011 mls @ 82 mls/hr IV .BY DURATION [facility] Last Admin: 03/12/19 11:43 Dose: 82 mls/hr Amino Ac/Electrol/Dextrose/Calcium (Clinimix E 12/08) 1,000 mls @ 82 mls/hr IV .BY DURATION [facility] Last Admin: 03/13/19 00:23 Dose: 82 mls/hr Sodium Chloride (Normal Saline) 1,000 mls @ 20 mls/hr IV ASDIRECTED [facility] Potassium Chloride 20 meq/ (Premix) 100 mls @ 50 mls/hr IV ONETIME ONE Stop: 03/13/19 10:59 Potassium Phosphate 30 mmole/ (Sodium Chloride) 110 mls @ 30 mls/hr IV ONETIME ONE Stop: 03/13/19 14:39 Latanoprost (Xalatan 0.005% Ophth Soln) 0 ml EYEBOTH BEDTIME [facility] Last Admin: 03/12/19 20:43 Dose: 1 drop Levothyroxine Sodium (Synthroid) 100 mcg IVPUSH DAILY [facility] Lorazepam (Ativan) 0.5 mg IVPUSH Q4H PRN PRN Reason: Anxiety Lorazepam (Ativan) 0.5 mg IVPUSH BID [facility] Last Admin: 03/13/19 09:11 Dose: 0.5 mg Metoprolol Tartrate (Lopressor) 5 mg IV Q6H [facility] Last Admin: 03/13/19 05:19 Dose: 5 mg Naloxone HCl (Narcan) 0.1 mg IV ASDIRECTED PRN PRN Reason: decreased respiratory rate Ondansetron HCl (Zofran) 4 mg IVPUSH Q4H PRN PRN Reason: Nausea/Vomiting Last Admin: 03/09/19 20:57 Dose: 4 mg Pantoprazole Sodium (Protonix Iv) 40 mg IV Q24H [facility] Last Admin: 03/12/19 17:39 Dose: 40 mg Sodium Chloride (Joseph 128 5% Ophth Soln) 0 ml EYEBOTH QID [facility] Last Admin: 03/13/19 05:19 Dose: 1 drop Discontinued Medications Acetylcysteine (Mucomyst 20%) 400 mg INH BIDRT [facility] Last Admin: 03/12/19 07:48 Dose: 200 mg Acetylcysteine (Mucomyst 20%) 200 mg INH BIDRT [facility] Stop: 03/12/19 23:59 Last Admin: 03/12/19 20:44 Dose: 200 mg Bupivacaine HCl (Marcaine 0.5%) Confirm Administered Dose 50 ml .ROUTE .STK-MED ONE Stop: 03/10/19 06:23 Bupivacaine HCl (Marcaine 0.5%) Confirm Administered Dose 50 ml .ROUTE .STK-MED ONE Stop: 03/11/19 07:19 Last Admin: 03/11/19 07:28 Dose: 15 ml Ropivacaine 36 ml/Dexamethasone 8 mg/Epinephrine HCl 0.4 mg/ Sodium Chloride 41.6 ml 0 ml NERVRT ASDIRECTED [facility] Last Admin: 03/08/19 15:05 Dose: 80 syringe Ropivacaine 36 ml/Dexamethasone 8 mg/Epinephrine HCl 0.4 mg/ Sodium Chloride 41.6 ml 0 ml NERVRT ASDIRECTED [facility] Last Admin: 03/11/19 07:41 Dose: 80 syringe Dexamethasone (Dexamethasone) Confirm Administered Dose 4 mg .ROUTE .[facility]-MED ONE Stop: 03/08/19 12:18 Diphenhydramine HCl (Benadryl) 25 mg IVPUSH Q6H PRN PRN Reason: Itching Diphenhydramine HCl (Benadryl) 25 mg PO Q6H PRN PRN Reason: Itching Fentanyl (Sublimaze) Confirm Administered Dose 250 mcg .ROUTE .[facility]-MED ONE Stop: 03/08/19 12:19 Furosemide (Lasix) 20 mg IVPUSH ONETIME ONE Stop: 03/09/19 21:56 Last Admin: 03/09/19 22:10 Dose: 20 mg Furosemide (Lasix) Confirm Administered Dose 20 mg .ROUTE .ST-MED ONE Stop: 03/09/19 22:05 Last Admin: 03/09/19 22:10 Dose: Not Given Furosemide (Lasix) 20 mg IVPUSH ONETIME ONE Stop: 03/10/19 06:33 Last Admin: 03/10/19 07:20 Dose: 20 mg Furosemide (Lasix) 20 mg IVPUSH ONETIME ONE Stop: 03/12/19 18:01 Last Admin: 03/12/19 17:43 Dose: 20 mg Furosemide (Lasix) 20 mg IVPUSH ONETIME ONE Stop: 03/12/19 07:31 Last Admin: 03/12/19 07:44 Dose: 20 mg Glycopyrrolate (Robinul) Confirm Administered Dose 1 mg .ROUTE .K-MED ONE Stop: 03/08/19 12:18 Haloperidol Lactate (Haldol) 5 mg IVPUSH BID [facility] Last Admin: 03/09/19 09:06 Dose: 5 mg Heparin Sodium (Porcine) (Heparin Sodium) Confirm Administered Dose 5,000 units .ROUTE .K-MED ONE Stop: 03/10/19 07:04 Last Admin: 03/10/19 07:57 Dose: Not Given Heparin Sodium (Porcine) (Heparin Lock Flush 100 Units/Ml) Confirm Administered Dose 1,000 units .ROUTE .[facility]-MED ONE Stop: 03/11/19 07:32 Last Admin: 03/11/19 08:31 Dose: Not Given Sodium Chloride (Normal Saline) 1,000 mls @ 1,000 mls/hr IV ASDIRECTED [facility] Last Admin: 03/08/19 10:02 Dose: 1,000 mls/hr Ampicillin Sodium/Sulbactam (Sodium 1.5 gm/ Sodium Chloride) 50 mls @ 100 mls/ hr IV Q6H [facility] Last Admin: 03/08/19 13:30 Dose: 100 mls/hr Aztreonam 1 gm/ Sodium (Chloride) 50 mls @ 100 mls/hr IV Q12H [facility] Last Admin: 03/08/19 13:30 Dose: 100 mls/hr Lactated Ringer's (Ringers, Lactated) 1,000 mls @ 150 [facility]ls[facility] Last Admin: 03/08/19 13:31 Dose: 150 mls/hr Lactated Ringer's (Ringers, Lactated) Confirm Administered Dose 1,000 mls @ as directed .ROUTE .K-MED ONE Stop: 03/08/19 15:16 Lactated Ringer's (Ringers, Lactated) 1,000 mls @ 100 mls/hr IV ASDIRECTED [facility] Last Admin: 03/09/19 03:26 Dose: 100 mls/hr Dextrose/Lactated Ringer's (Dextrose 5%-Lactated Ringers) 1,000 mls @ 100 mls/ hr [facility] Stop: 03/12/19 11:59 Last Admin: 03/11/19 23:35 Dose: 100 mls/hr Potassium Chloride 20 meq/Lidocaine HCl 2 ml/ Sodium Chloride 112 mls @ 56 mls/ hr IV Q2H [facility] Stop: 03/09/19 15:59 Last Admin: 03/09/19 17:30 Dose: 56 mls/hr Lactated Ringer's (Ringers, Lactated) 750 mls @ 750 mls/hr IV BOLUS ONE Stop: 03/09/19 16:25 Last Admin: 03/09/19 15:53 Dose: 750 mls/hr Lactated Ringer's (Ringers, Lactated) 750 mls @ 999 mls/hr IV BOLUS ONE Stop: 03/09/19 21:15 Last Admin: 03/09/19 21:08 Dose: 999 mls/hr Linezolid 600 mg/ Premix 300 mls @ 300 mls/hr IV Q12H [facility] Last Admin: 03/11/19 21:53 Dose: 300 mls/hr Potassium Chloride 20 meq/Lidocaine HCl 2 ml/ Sodium Chloride 112 mls @ 56 mls/ hr IV Q2H [facility] Stop: 03/10/19 16:29 Last Admin: 03/10/19 16:07 Dose: 56 mls/hr Potassium Chloride 20 meq/ (Premix) 0 mls @ 50 mls/hr IV Q2H [facility] Stop: 03/11/19 07:28 Last Admin: 03/11/19 07:32 Dose: 50 mls/hr Magnesium Sulfate 2 gm/ Premix 50 mls @ 25 mls/hr IV Q6H [facility] Last Admin: 03/12/19 04:27 Dose: 25 mls/hr Potassium Phosphate 20 mmole/ (Sodium Chloride) 256.6667 mls @ 85 mls/hr IV Q3H [facility] Stop: 03/11/19 17:59 Last Admin: 03/11/19 14:42 Dose: 85 mls/hr Potassium Phosphate 20 mmole/ (Sodium Chloride) 256.6667 mls @ 85.556 mls/hr IV Q3H [facility] Stop: 03/12/19 16:59 Last Admin: 03/12/19 14:49 Dose: 85.556 mls/hr Lidocaine HCl (Xylocaine-Mpf 1%) 5 ml INJECT ONETIME ONE Stop: 03/11/19 05:30 Last Admin: 03/11/19 05:39 Dose: 2 ml Lidocaine/Epinephrine (Xylocaine 1% With Epinephrine 1:100,000) Confirm Administered Dose 50 ml .ROUTE .STK-MED ONE Stop: 03/10/19 06:23 Lidocaine/Epinephrine (Xylocaine 1% With Epinephrine 1:100,000) Confirm Administered Dose 50 ml .ROUTE .STK-MED ONE Stop: 03/11/19 07:19 Last Admin: 03/11/19 07:28 Dose: 15 ml Linezolid (Zyvox) 600 mg IRR .STK-MED ONE Stop: 03/11/19 07:39 Last Admin: 03/11/19 07:38 Dose: 600 mg Lorazepam (Ativan) 0.5 mg IVPUSH BID [facility] Last Admin: 03/09/19 09:09 Dose: 0.5 mg Lorazepam (Ativan) 0.25 mg IVPUSH BID [facility] Last Admin: 03/10/19 09:09 Dose: 0.25 mg Meropenem (Merrem) Confirm Administered Dose 500 mg .ROUTE .STK-MED ONE Stop: 03/08/19 12:05 Last Admin: 03/08/19 14:00 Dose: 500 mg Meropenem (Merrem) Confirm Administered Dose 500 mg .ROUTE .STK-MED ONE Stop: 03/10/19 06:23 Meropenem (Merrem) Confirm Administered Dose 500 mg .ROUTE .STK-MED ONE Stop: 03/11/19 06:45 Last Admin: 03/11/19 07:38 Dose: 500 mg Neostigmine Methylsulfate (Neostigmine) Confirm Administered Dose 5 mg .ROUTE .STK-MED ONE Stop: 03/08/19 12:18 Ondansetron HCl (Zofran) Confirm Administered Dose 4 mg .ROUTE .STK-MED ONE Stop: 03/08/19 12:18 Ondansetron HCl (Zofran) 4 mg IVPUSH Q6H PRN PRN Reason: Nausea/Vomiting Propofol (Diprivan 20 Ml) Confirm Administered Dose 200 mg .ROUTE .STK-MED ONE Stop: 03/08/19 12:18 Propofol (Diprivan 20 Ml) Confirm Administered Dose 200 mg .ROUTE .STK-MED ONE Stop: 03/10/19 07:33 Rocuronium Valdez (Zemuron) Confirm Administered Dose 50 mg .ROUTE .STK-MED ONE Stop: 03/08/19 12:18 Succinylcholine Chloride (Quelicin) Confirm Administered Dose 200 mg .ROUTE .STK -MED ONE Stop: 03/08/19 12:18 Succinylcholine Chloride (Quelicin) Confirm Administered Dose 200 mg .ROUTE .STK -MED ONE Stop: 03/10/19 07:33 - Exam Quality Assessment: Supplemental Oxygen General: No Acute Distress, Sedated. No: Alert, Cooperative Neck: Supple Lungs: Clear to Auscultation, Normal Respiratory Effort, Decreased Breath Sounds (both bases) Cardiovascular: Regular Rate, Regular Rhythm GI/Abdominal Exam: Soft, No Distention, Abnormal Bowel Sounds (hypoactive ) Extremities: Pedal Edema (trace bilateral edema of feet ). No: Increased Warmth Peripheral Pulses: 2+: Dorsalis Pedis (L), Dorsalis Pedis (R) Skin: Warm, Dry Psy/Mental Status: No: Alert, Agitated - Problem List & Annotations (1) Small bowel obstruction due to adhesions SNOMED Code(s): 396921955 Code(s): K56.50 - INTESTNL ADHESIONS, UNSP TO PARTIAL VERSUS COMPLETE OBST Status: Acute Current Visit: Yes (2) Acute kidney injury SNOMED Code(s): 55710419, 61141037 Code(s): N17.9 - ACUTE KIDNEY FAILURE, UNSPECIFIED Status: Acute Current Visit: Yes (3) Schizophrenia SNOMED Code(s): 87391723 Code(s): F20.9 - SCHIZOPHRENIA, UNSPECIFIED Status: Chronic Current Visit : No Qualifiers: Schizophrenia type: unspecified Qualified Code(s): F20.9 - Schizophrenia, unspecified (4) Hypothyroid SNOMED Code(s): 11373093 Code(s): E03.9 - HYPOTHYROIDISM, UNSPECIFIED Status: Chronic Current Visit: No Qualifiers: Hypothyroidism type: acquired Qualified Code(s): E03.9 - Hypothyroidism, unspecified (5) HTN (hypertension) SNOMED Code(s): 73425645 Code(s): I10 - ESSENTIAL (PRIMARY) HYPERTENSION Status: Chronic Current Visit: No Qualifiers: Hypertension type: essential hypertension Qualified Code(s): I10 - Essential (primary) hypertension - Problem List Review Problem List Initiated/Reviewed/Updated: Yes - Plan Plan:: ASSESSMENT AND PLAN - Small bowel obstruction with pneumatosis - status post emergent laparotomy with small bowel resection and right colectomy 03/08. Pain appears controlled. NG tube drainage persists but seems to be slowing. No return of bowel function yet. -Postoperative care per surgical team -He is receiving TPN -Gentle IV fluids -Pain control -NG tube drainage Acute respiratory failure with hypoxia - 2/2 schizophrenia and weakness. Not able to cough effectively. He has persistent pulmonary congestion on chest x- ray. Respiratory culture grew out strep viridans. Stable on 45% FiO2 and I suspect once volume status is better optimized we can progress with weaning trials. -Furosemide twice daily -cont mechanical ventilation -Antibiotic coverage with linezolid until cultures are final -Consider weaning trial in the morning -propofol sedation -f/u culture Hypokalemia - potassium level improved with supplementation. -Replace as ordered -Recheck in the morning Severe schizophrenia - patient is very debilitated because of his psychiatric illness. Psych illness has contributed to resp decline and will be a very large barrier to extubation. -Continue low-dose Haldol -Continue regular dose Depakote -low dose lorazepam -Restart oral medications when able Acute kidney injury - due to poor intake and small bowel obstruction. Creatinine back to baseline. -continue gentle IV fluid resuscitation -Repeat labs in the morning Maintenance issues - - DVT prophylaxis - mechanical - GI prophylaxis - IV PPI - Nutrition - nothing by mouth - Rodriguez catheter - placed for strict intake and output monitoring with a critical patient Disposition - anticipate discharge home versus more likely the [facility] Farhan Nj M.D.
[2019-03-13] MEDS: Furosemide 20 MG/2 ML VIAL IVPUSH SCH ×2 (09:29→20:29)
[2019-03-13] MEDS: Levothyroxine 100 MCG Vial IVPUSH SCH (09:34)
[2019-03-13] MEDS: Linezolid 600 MG in Premix Bag 1 BAG IV SCH ×2 (09:37→21:41)
--- NOTE | 2019-03-13 10:57 | PN ---
DATE OF SERVICE: 03/12/2019 The patient has been now afebrile with stable vital signs. Little bit hypertensive. I think we will give him some IV Lasix as he has fairly high blood pressures. Otherwise, the secretions from respiratory standpoint have decreased quite a bit. NG output still fairly high around 700 mL, but again down significantly from previously, and the alkalosis has now been corrected on blood gases with a normal pH presently. The patient may begin to have weaning trial in the next day or so, although the lack of cooperation with clearing of the secretions will likely be a problem for some time. Labs show white count of 16,000 which is stable. Hemoglobin 10.3, down a little bit, indicating some fluid shifting. Potassium marginally low at 3.5. His phosphate was not re-measured today but it was strikingly low yesterday, so we will plan on giving him some potassium phosphate and then recheck those labs in the morning. begin some range of motion and continue present antibiotics pending C and S results. We should be getting something back on the sputum in the next 24 hours, which will hopefully allow us to get him off the Zyvox. Haider Monae MD /[id number]
[2019-03-13] MEDS ORDERED: POTASSIUM PHOSPHATES IV ONE (11:00)
[2019-03-13] MEDS ORDERED: SODIUM CHLORIDE IV ONE (11:00)
[2019-03-13] MEDS: Pantoprazole 40 MG Vial IV SCH (17:38)
[2019-03-13] MEDS: Latanoprost 0.005% Ophth Soln 2.5 ML Bottle EYEBOTH SCH (20:30)
[2019-03-14] MEDS: 1: AA 5%/Calcium/D15W/Lytes 1,000 ML with MVI, Adult with Vitamin K 10 ML, Chromium/Copp IV SCH ×6 (01:20→13:33)
[2019-03-14] MEDS: Sodium Chloride 5% Ophth Soln 15 ML Bottle EYEBOTH SCH ×4 (05:12→21:57)
[2019-03-14] MEDS: Metoprolol Tartrate 5 MG/5 ML SDV IV SCH ×3 (05:12→17:49)
--- NOTE | 2019-03-14 05:13 | CRLCR ---
Indication: Intubated Technique: Chest 1 view Comparison: March 13, 2019 Findings/Impression: Endotracheal tube tip terminates 3.8 cm above the level of the yair. A gastric drainage tube tip terminates at the level of the mid stomach. A left subclavian central venous catheter tip terminates at the level the right atrium. Lung volumes are low with atelectasis at both lung bases. Likely small bilateral pleural effusions. No pneumothorax. Stable cardiac size. Midline laparotomy skin agus noted. Dictated by Joyce Saravia MD @ Mar 14 2019 5:10AM Signed by Dr. Joyce Saravia @ Mar 14 2019 5:11AM
[2019-03-14] MEDS: Albuterol/Ipratropium 3.0-0.5 MG/3 ML Neb Soln INH SCH ×4 (07:00→20:37)
[2019-03-14] MEDS ORDERED: Glucagon,Human Recombinant 1 MG Vial IM PRN (07:53)
[2019-03-14] MEDS ORDERED: Glucose Gel 15 GM in 37.5 GM Tube PO PRN (07:53)
[2019-03-14] MEDS ORDERED: 50% Dextrose in Water 50 ML Syringe IVPUSH PRN (07:53)
[2019-03-14] MEDS ORDERED: Insulin Lispro 100 Unit/ML 3 ML KwikPen SUBCUT PRN (07:53)
--- NOTE | 2019-03-14 07:58 | PN ---
DATE OF SERVICE: 03/13/2019 He is running temperatures in the 97 to 99 range, heart rates in the 90s for the most part, blood pressure is 150s/80s. His ventilator status is roughly unchanged. Blood gases continu to remain satisfactory. We will leave the weaning issues up to Dr. Nj at this point. Chest x-ray shows some small effusions. Otherwise, no major new problems are noted. The laboratory studies did not grow out the gram-positives, so I think pretty well needing to keep the Zyvox on board. At this point, we can discontinue the Unasyn and Azactam. The issue with regard to weaning will be complicated by the patient's inability to cooperate with coughing, but the secretions have loosened up quite a bit with the addition of the Mucomyst 2 days ago. The patient had a net diuresis around 2200 mL over the last 24 hours with the IV Lasix. With that, his BNP did go up some more up to a 1000, and we will give him some additional Lasix today. We will supplement potassium in the form of K-Phos and KCl today as well. NG output was around 500 mL and will leave that in place. Otherwise, we will continue TPN for the nutritional management. His TSH was quite elevated at 14.5 and we will begin some IV thyroid replacement, in leiu of oral replacement, while he is n.p.o. and not likely to get anything significantly absorbed by enteral route. Otherwise, we will continue supportive care with assistance of Dr. Nj and Dr. Jaffe beginning tomorrow. Haider Monae MD /[id number]
[2019-03-14] MEDS: Magnesium Sulfate/Water 2 GM in Premix Bag 1 BAG IV SCH ×3 (08:12→19:16)
[2019-03-14] MEDS: LORazepam 2 MG/ML SDV IVPUSH SCH ×2 (09:14→20:37)
[2019-03-14] MEDS: Haloperidol Lactate 5 MG/ML SDV IVPUSH SCH ×2 (09:14→20:38)
[2019-03-14] MEDS: Levothyroxine 100 MCG Vial IVPUSH SCH (09:31)
[2019-03-14] MEDS: Linezolid 600 MG in Premix Bag 1 BAG IV SCH ×2 (09:43→21:57)
--- NOTE | 2019-03-14 09:54 | PCM.PN ---
- General Info Date of Service: 03/14/19 Subjective Update: Mr. Perez unfortunately failed his spontaneous breathing trial this morning. Staff reports that he remains fairly stable from a respiratory standpoint, but if moved develops paroxysms of cough with increasing respiratory rate and decrease in saturations. Hemodynamically stable and has remained afebrile. Unable to provide meaningful information concerning symptoms or review of systems because of intubation and mechanical ventilation. - Patient Data Vitals - Most Recent: Last Vital Signs Temp 98.5 F 03/14/19 09:00 Pulse 94 03/14/19 09:00 Resp 22 H 03/14/19 09:00 BP 139/63 03/14/19 09:00 Pulse Ox 94 L 03/14/19 09:00 Weight - Most Recent: 168 lb 9.6 oz I&O - Last 24 Hours: Intake & Output 03/13/19 03/14/19 03/14/19 22:59 06:59 14:59 Intake Total 2138 1954 300 Output Total 1735 1475 325 Balance 403 479 -25 Lab Results Last 24 Hours: Laboratory Results - last 24 hr 03/14/19 03/14/19 03/14/19 Range/Units 04:30 04:30 04:30 WBC 14.2 H (4.5-11.0) K/uL RBC 3.54 L (4.30-5.90) M/uL Hgb 10.1 L (12.0-15.0) g/dL Hct 33.1 L (40.0-54.0) % MCV 94 (80-98) fL MCH 29 (27-31) pg MCHC 31 L (32-36) % Plt Count 199 (150-400) K/uL Puncture Site Line ABG pH 7.467 H (7.350-7.450) ABG pCO2 40.7 (35.0-42.0) mmHg ABG pO2 75.0 (75.0-100.0) mmHg ABG HCO3 29.0 H (22.0-26.0) mmol/L ABG Total CO2 26.5 (23.0-27.0) mmol/L ABG O2 Saturation 94.7 L (95.0-98.0) % ABG O2 Content 13.5 L (15.0-23.0) %vol ABG Base Excess 5.3 mm/L ABG Hemoglobin 10.3 L (13.5-18.0) g/dL ABG Oxyhemoglobin 92.7 % ABG Carboxyhemoglobin 1.0 (0.0-1.6) % ABG Methemoglobin 1.1 % O2 Delivery Device Ventilator Oxygen Flow Rate L Sodium 142 (140-148) mmol/L Potassium 4.4 (3.6-5.2) mmol/L Chloride 106 (100-108) mmol/L Carbon Dioxide 30 (21-32) mmol/L Anion Gap 5.6 (5.0-14.0) mmol/L BUN 28 H D (7-18) mg/dL Creatinine 1.3 (0.8-1.3) mg/dL Est Cr Clr Drug Dosing 51.86 mL/min Estimated GFR (MDRD) 57 L (>60) Glucose 388 H (74-106) mg/dL Calcium 7.6 L (8.5-10.1) mg/dL Phosphorus 5.2 H (2.5-4.9) mg/dL Magnesium 1.7 L (1.8-2.4) mg/dL Total Bilirubin 0.3 (0.2-1.0) mg/dL AST 29 (15-37) U/L ALT 43 (12-78) U/L Alkaline Phosphatase 94 (46-116) U/L NT-Pro-B Natriuret Pep 441 H (5-125) pg/mL Total Protein 4.4 L (6.4-8.2) g/dL Albumin 1.3 L (3.4-5.0) g/dL Globulin 3.1 (2.3-3.5) g/dL Albumin/Globulin Ratio 0.4 L (1.2-2.2) Quentin Results Last 24 Hours: Microbiology 03/09/19 23:08 Gram Stain - Final Other - Deep Respiratory Culture - Final Viridans Streptococcus Viridans Streptococcus#2 03/10/19 07:30 Gram Stain - Final Endotrachael Aspirate Respiratory Culture - Final Viridans Streptococcus Med Orders - Current: Current Medications Albuterol (Proventil Neb Soln) 2.5 mg NEB Q4H PRN PRN Reason: Shortness Of Breath/wheezing Last Admin: 03/10/19 00:24 Dose: 2.5 mg Albuterol/Ipratropium (Duoneb 3.0-0.5 Mg/3 Ml) 3 ml INH QIDRT [facility] Last Admin: 03/14/19 07:00 Dose: 3 ml Dextrose (Glutose 15) 15 gm PO ASDIRECTED PRN PRN Reason: HYPOGLYCEMIA Dextrose/Water (Dextrose 50% In Water) 50 ml IVPUSH ASDIRECTED PRN PRN Reason: HYPOGLYCEMIA Diphenhydramine HCl (Benadryl) 25 mg IVPUSH Q4H PRN PRN Reason: Itching Glucagon (Glucagen) 1 mg IM ASDIRECTED PRN PRN Reason: HYPOGLYCEMIA Haloperidol Lactate (Haldol) 2 mg IVPUSH Q4H PRN PRN Reason: Agitation Haloperidol Lactate (Haldol) 2.5 mg IVPUSH BID [facility] Last Admin: 03/14/19 09:14 Dose: 2.5 mg Heparin Sodium (Porcine) (Heparin Lock Flush 100 Units/Ml) 500 units FLUSH ASDIRECTED PRN PRN Reason: Keep Vein Open Last Admin: 03/11/19 08:30 Dose: 500 units Hydromorphone HCl (Dilaudid Frame Stylist 15 Mg In Ns 30 Ml) 0 mg IV ASDIRECTED PRN; Protocol PRN Reason: PAIN Last Admin: 03/12/19 22:12 Dose: 15 mg Valproic Acid 500 mg/ Sodium (Chloride) 55 mls @ 55 mls/hr IV Q8H [facility] Last Admin: 03/14/19 04:57 Dose: 55 mls/hr Heparin Sodium (Porcine) 5,000 (units/ Sodium Chloride) 501 mls @ 5 mls/hr IV ASDIRECTED [facility] Last Admin: 03/12/19 13:58 Dose: 5 mls/hr Propofol (Diprivan 100 Ml) 100 mls @ 2.191 mls/hr IV TITRATE [facility]; Protocol Last Admin: 03/14/19 09:18 Dose: 30 mcg/kg/min, 13.145 mls/hr Multivitamins/Minerals 10 ml/Chromium/Copper/Manganese/Seleni/Zn 1 ml/ Amino Ac/ Electrol/Dextrose/Calcium 1,011 mls @ 82 mls/hr IV .BY DURATION [facility] Last Admin: 03/13/19 12:34 Dose: 82 mls/hr Amino Ac/Electrol/Dextrose/Calcium (Clinimix E 5/15) 1,000 mls @ 82 mls/hr IV .BY DURATION [facility] Last Admin: 03/14/19 01:20 Dose: 82 mls/hr Sodium Chloride (Normal Saline) 1,000 mls @ 20 mls/hr IV ASDIRECTED [facility] Last Admin: 03/13/19 22:58 Dose: 20 mls/hr Linezolid 600 mg/ Premix 300 mls @ 300 mls/hr IV Q12H [facility] Last Admin: 03/14/19 09:43 Dose: 300 mls/hr Magnesium Sulfate 2 gm/ Premix 50 mls @ 25 mls/hr IV Q6H [facility] Stop: 03/16/19 03:59 Last Admin: 03/14/19 08:12 Dose: 25 mls/hr Azithromycin 250 mg/ Sodium (Chloride) 150 mls @ 150 mls/hr IV Q24H [facility] Insulin Human Lispro (Humalog) 0 unit SUBCUT Q6H PRN; Protocol PRN Reason: MEDIUM CORRECTIONAL DOSING Latanoprost (Xalatan 0.005% Ophth Soln) 0 ml EYEBOTH BEDTIME [facility] Last Admin: 03/13/19 20:30 Dose: 1 drop Levothyroxine Sodium (Synthroid) 100 mcg IVPUSH DAILY [facility] Last Admin: 03/14/19 09:31 Dose: 100 mcg Lorazepam (Ativan) 0.5 mg IVPUSH Q4H PRN PRN Reason: Anxiety Lorazepam (Ativan) 0.5 mg IVPUSH BID [facility] Last Admin: 03/14/19 09:14 Dose: 0.5 mg Metoprolol Tartrate (Lopressor) 5 mg IV Q6H [facility] Last Admin: 03/14/19 05:12 Dose: 5 mg Naloxone HCl (Narcan) 0.1 mg IV ASDIRECTED PRN PRN Reason: decreased respiratory rate Ondansetron HCl (Zofran) 4 mg IVPUSH Q4H PRN PRN Reason: Nausea/Vomiting Last Admin: 03/09/19 20:57 Dose: 4 mg Pantoprazole Sodium (Protonix Iv) 40 mg IV Q24H [facility] Last Admin: 03/13/19 17:38 Dose: 40 mg Sodium Chloride (Joseph 128 5% Ophth Soln) 0 ml EYEBOTH QID [facility] Last Admin: 03/14/19 09:43 Dose: 2 drop Discontinued Medications Acetylcysteine (Mucomyst 20%) 400 mg INH BIDRT [facility] Last Admin: 03/12/19 07:48 Dose: 200 mg Acetylcysteine (Mucomyst 20%) 200 mg INH BIDRT [facility] Stop: 03/12/19 23:59 Last Admin: 03/12/19 20:44 Dose: 200 mg Bupivacaine HCl (Marcaine 0.5%) Confirm Administered Dose 50 ml .ROUTE .STK-MED ONE Stop: 03/10/19 06:23 Bupivacaine HCl (Marcaine 0.5%) Confirm Administered Dose 50 ml .ROUTE .STK-MED ONE Stop: 03/11/19 07:19 Last Admin: 03/11/19 07:28 Dose: 15 ml Ropivacaine 36 ml/Dexamethasone 8 mg/Epinephrine HCl 0.4 mg/ Sodium Chloride 41.6 ml 0 ml NERVRT ASDIRECTED [facility] Last Admin: 03/08/19 15:05 Dose: 80 syringe Ropivacaine 36 ml/Dexamethasone 8 mg/Epinephrine HCl 0.4 mg/ Sodium Chloride 41.6 ml 0 ml NERVRT ASDIRECTED [facility] Last Admin: 03/11/19 07:41 Dose: 80 syringe Dexamethasone (Dexamethasone) Confirm Administered Dose 4 mg .ROUTE .STK-MED ONE Stop: 03/08/19 12:18 Diphenhydramine HCl (Benadryl) 25 mg IVPUSH Q6H PRN PRN Reason: Itching Diphenhydramine HCl (Benadryl) 25 mg PO Q6H PRN PRN Reason: Itching Fentanyl (Sublimaze) Confirm Administered Dose 250 mcg .ROUTE .STK-MED ONE Stop: 03/08/19 12:19 Furosemide (Lasix) 20 mg IVPUSH ONETIME ONE Stop: 03/09/19 21:56 Last Admin: 03/09/19 22:10 Dose: 20 mg Furosemide (Lasix) Confirm Administered Dose 20 mg .ROUTE .STK-MED ONE Stop: 03/09/19 22:05 Last Admin: 03/09/19 22:10 Dose: Not Given Furosemide (Lasix) 20 mg IVPUSH ONETIME ONE Stop: 03/10/19 06:33 Last Admin: 03/10/19 07:20 Dose: 20 mg Furosemide (Lasix) 20 mg IVPUSH ONETIME ONE Stop: 03/12/19 18:01 Last Admin: 03/12/19 17:43 Dose: 20 mg Furosemide (Lasix) 20 mg IVPUSH ONETIME ONE Stop: 03/12/19 07:31 Last Admin: 03/12/19 07:44 Dose: 20 mg Furosemide (Lasix) 10 mg IVPUSH Q12H [facility] Stop: 03/13/19 21:01 Last Admin: 03/13/19 20:29 Dose: 10 mg Glycopyrrolate (Robinul) Confirm Administered Dose 1 mg .ROUTE .STK-MED ONE Stop: 03/08/19 12:18 Haloperidol Lactate (Haldol) 5 mg IVPUSH BID [facility] Last Admin: 03/09/19 09:06 Dose: 5 mg Heparin Sodium (Porcine) (Heparin Sodium) Confirm Administered Dose 5,000 units .ROUTE .STK-MED ONE Stop: 03/10/19 07:04 Last Admin: 03/10/19 07:57 Dose: Not Given Heparin Sodium (Porcine) (Heparin Lock Flush 100 Units/Ml) Confirm Administered Dose 1,000 units .ROUTE .STK-MED ONE Stop: 03/11/19 07:32 Last Admin: 03/11/19 08:31 Dose: Not Given Sodium Chloride (Normal Saline) 1,000 mls @ 1,000 mls/hr IV ASDIRECTED [facility] Last Admin: 03/08/19 10:02 Dose: 1,000 mls/hr Ampicillin Sodium/Sulbactam (Sodium 1.5 gm/ Sodium Chloride) 50 mls @ 100 mls/ hr IV Q6H [facility] Last Admin: 03/08/19 13:30 Dose: 100 mls/hr Aztreonam 1 gm/ Sodium (Chloride) 50 mls @ 100 mls/hr IV Q12H [facility] Last Admin: 03/08/19 13:30 Dose: 100 mls/hr Lactated Ringer's (Ringers, Lactated) 1,000 mls @ 150 mls/hr IV ASDIRECTED [facility] Last Admin: 03/08/19 13:31 Dose: 150 mls/hr Lactated Ringer's (Ringers, Lactated) Confirm Administered Dose 1,000 mls @ as directed .ROUTE .STK-MED ONE Stop: 03/08/19 15:16 Lactated Ringer's (Ringers, Lactated) 1,000 mls @ 100 mls/hr IV ASDIRECTED [facility] Last Admin: 03/09/19 03:26 Dose: 100 mls/hr Dextrose/Lactated Ringer's (Dextrose 5%-Lactated Ringers) 1,000 mls @ 100 mls/ hr IV ASDIRECTED [facility] Stop: 03/12/19 11:59 Last Admin: 03/11/19 23:35 Dose: 100 mls/hr Ampicillin Sodium/Sulbactam (Sodium 3 gm/ Sodium Chloride) 100 mls @ 200 mls/ hr IV Q6H [facility] Last Admin: 03/13/19 05:19 Dose: 200 mls/hr Aztreonam 1 gm/ Sodium (Chloride) 50 mls @ 100 mls/hr IV Q8H [facility] Last Admin: 03/13/19 04:23 Dose: 100 mls/hr Potassium Chloride 20 meq/Lidocaine HCl 2 ml/ Sodium Chloride 112 mls @ 56 mls/ hr IV Q2H [facility] Stop: 03/09/19 15:59 Last Admin: 03/09/19 17:30 Dose: 56 mls/hr Lactated Ringer's (Ringers, Lactated) 750 mls @ 750 mls/hr IV [facility] ONE Stop: 03/09/19 16:25 Last Admin: 03/09/19 15:53 Dose: 750 mls/hr Lactated Ringer's (Ringers, Lactated) 750 mls @ 999 mls/hr IV [facility] ONE Stop: 03/09/19 21:15 Last Admin: 03/09/19 21:08 Dose: 999 mls/hr Linezolid 600 mg/ Premix 300 mls @ 300 mls/hr IV Q12H [facility] Last Admin: 03/11/19 21:53 Dose: 300 mls/hr Potassium Chloride 20 meq/Lidocaine HCl 2 ml/ Sodium Chloride 112 mls @ 56 mls/ hr IV Q2H [facility] Stop: 03/10/19 16:29 Last Admin: 03/10/19 16:07 Dose: 56 mls/hr Potassium Chloride 20 meq/ (Premix) 0 mls @ 50 mls/hr IV Q2H [facility] Stop: 03/11/19 07:28 Last Admin: 03/11/19 07:32 Dose: 50 mls/hr Magnesium Sulfate 2 gm/ Premix 50 mls @ 25 mls/hr IV Q6H [facility] Last Admin: 03/12/19 04:27 Dose: 25 mls/hr Potassium Phosphate 20 mmole/ (Sodium Chloride) 256.6667 mls @ 85 mls/hr IV Q3H [facility] Stop: 03/11/19 17:59 Last Admin: 03/11/19 14:42 Dose: 85 mls/hr Potassium Phosphate 20 mmole/ (Sodium Chloride) 256.6667 mls @ 85.556 mls/hr IV Q3H [facility] Stop: 03/12/19 16:59 Last Admin: 03/12/19 14:49 Dose: 85.556 mls/hr Potassium Chloride 20 meq/ (Premix) 100 mls @ 50 mls/hr IV ONETIME ONE Stop: 03/13/19 10:59 Last Admin: 03/13/19 09:29 Dose: 50 mls/hr Potassium Phosphate 30 mmole/ (Sodium Chloride) 110 mls @ 30 mls/hr IV ONETIME ONE Stop: 03/13/19 14:39 Last Admin: 03/13/19 12:14 Dose: 30 mls/hr Azithromycin 250 mg/ Sodium (Chloride) 150 mls @ 150 mls/hr IV Q12H [facility] Lidocaine HCl (Xylocaine-Mpf 1%) 5 ml INJECT ONETIME ONE Stop: 03/11/19 05:30 Last Admin: 03/11/19 05:39 Dose: 2 ml Lidocaine/Epinephrine (Xylocaine 1% With Epinephrine 1:100,000) Confirm Administered Dose 50 ml .ROUTE .STK-MED ONE Stop: 03/10/19 06:23 Lidocaine/Epinephrine (Xylocaine 1% With Epinephrine 1:100,000) Confirm Administered Dose 50 ml .ROUTE .STK-MED ONE Stop: 03/11/19 07:19 Last Admin: 03/11/19 07:28 Dose: 15 ml Linezolid (Zyvox) 600 mg IRR .STK-MED ONE Stop: 03/11/19 07:39 Last Admin: 03/11/19 07:38 Dose: 600 mg Lorazepam (Ativan) 0.5 mg IVPUSH BID [facility] Last Admin: 03/09/19 09:09 Dose: 0.5 mg Lorazepam (Ativan) 0.25 mg IVPUSH BID [facility] Last Admin: 03/10/19 09:09 Dose: 0.25 mg Meropenem (Merrem) Confirm Administered Dose 500 mg .ROUTE .STK-MED ONE Stop: 03/08/19 12:05 Last Admin: 03/08/19 14:00 Dose: 500 mg Meropenem (Merrem) Confirm Administered Dose 500 mg .ROUTE .STK-MED ONE Stop: 03/10/19 06:23 Meropenem (Merrem) Confirm Administered Dose 500 mg .ROUTE .STK-MED ONE Stop: 03/11/19 06:45 Last Admin: 03/11/19 07:38 Dose: 500 mg Neostigmine Methylsulfate (Neostigmine) Confirm Administered Dose 5 mg .ROUTE .STK-MED ONE Stop: 03/08/19 12:18 Ondansetron HCl (Zofran) Confirm Administered Dose 4 mg .ROUTE .STK-MED ONE Stop: 03/08/19 12:18 Ondansetron HCl (Zofran) 4 mg IVPUSH Q6H PRN PRN Reason: Nausea/Vomiting Propofol (Diprivan 20 Ml) Confirm Administered Dose 200 mg .ROUTE .STK-MED ONE Stop: 03/08/19 12:18 Propofol (Diprivan 20 Ml) Confirm Administered Dose 200 mg .ROUTE .STK-MED ONE Stop: 03/10/19 07:33 Rocuronium [place]co (Zemuron) Confirm Administered Dose 50 mg .ROUTE .STK-MED ONE Stop: 03/08/19 12:18 Succinylcholine Chloride (Quelicin) Confirm Administered Dose 200 mg .ROUTE .STK -MED ONE Stop: 03/08/19 12:18 Succinylcholine Chloride (Quelicin) Confirm Administered Dose 200 mg .ROUTE .STK -MED ONE Stop: 03/10/19 07:33 - Exam Quality Assessment: Supplemental Oxygen (Ventilator), Central Line/PICC, Urine Catheter, DVT Prophylaxis General: Sedated, Lethargic Lungs: Clear to Auscultation. No: Rales, Rhonchi, Rub Cardiovascular: Regular Rate, Regular Rhythm, No Murmurs GI/Abdominal Exam: Soft, No Organomegaly, Tender. No: Distended, Guarding, Rigid, Rebound Extremities: Non-Tender, No Pedal Edema - Problem List Review Problem List Initiated/Reviewed/Updated: Yes - Plan Plan:: ASSESSMENT AND PLAN - Small bowel obstruction with pneumatosis - status post emergent laparotomy with small bowel resection and right colectomy 03/08. No return of bowel function yet. -Postoperative care per surgical team -He is receiving TPN -Gentle IV fluids -Pain control -NG tube drainage Acute respiratory failure with hypoxia - 2/2 schizophrenia and weakness. Not able to cough effectively. He has persistent pulmonary congestion on chest x- ray. Respiratory culture grew out strep viridans. Stable on 45% FiO2 and I suspect once volume status is better optimized we can progress with weaning trials. -Furosemide twice daily -cont mechanical ventilation -Antibiotic coverage with linezolid until cultures are final -Daily spontaneous breathing trials -f/u culture Hypokalemia - potassium level improved with supplementation. -Replace as ordered -Recheck in the morning Severe schizophrenia - patient is very debilitated because of his psychiatric illness. Psych illness has contributed to resp decline and will be a very large barrier to extubation. -Continue low-dose Haldol -Continue regular dose Depakote -low dose lorazepam -Restart oral medications when able Acute kidney injury - due to poor intake and small bowel obstruction. Creatinine back to baseline. -continue gentle IV fluid resuscitation -Repeat labs in the morning Maintenance issues - - DVT prophylaxis - mechanical - GI prophylaxis - IV PPI - Nutrition - nothing by mouth - Rodriguez catheter - placed for strict intake and output monitoring with a critical patient Disposition - anticipate discharge home versus more likely the intermediate
[2019-03-14] MEDS ORDERED: Insulin Lispro 100 Unit/ML 3 ML KwikPen SUBCUT ONE (12:04)
[2019-03-14] MEDS: Pantoprazole 40 MG Vial IV SCH (17:49)
[2019-03-14] MEDS: Latanoprost 0.005% Ophth Soln 2.5 ML Bottle EYEBOTH SCH (20:37)
[2019-03-15] MEDS ORDERED: Insulin Lispro 100 Units/ML 3 ML Vial SUBCUT ONE (00:15)
[2019-03-15] MEDS: Metoprolol Tartrate 5 MG/5 ML SDV IV SCH ×5 (00:20→23:49)
[2019-03-15] MEDS: 1: AA 5%/Calcium/D15W/Lytes 1,000 ML with MVI, Adult with Vitamin K 10 ML, Chromium/Copp IV SCH ×6 (01:36→13:34)
[2019-03-15] MEDS: Magnesium Sulfate/Water 2 GM in Premix Bag 1 BAG IV SCH ×4 (01:45→20:48)
--- NOTE | 2019-03-15 04:19 | CRLCR ---
INDICATION: Intubation TECHNIQUE: Chest 1 view. COMPARISON: 03/14/2019 FINDINGS: Cardiovascular and mediastinum: Heart size and vasculature are normal in caliber and appearance. Mediastinum is within normal limits. Lungs and pleural space: Lungs are clear. No sign of infiltrate or mass. Right pleural effusion. No pneumothorax. Bones and soft tissues: No significant findings. Lines and tubes: Stable appearance of lines and tubes. IMPRESSION: Stable right pleural effusion. Stable appearance of lines and tubes. Dictated by Bernardo Duong MD @ 03/15/2019 4:17:08 AM Dictated by: Bernardo Duong MD @ 03/15/2019 04:17:27 (Electronically Signed)
[2019-03-15] MEDS: Sodium Chloride 5% Ophth Soln 15 ML Bottle EYEBOTH SCH ×4 (05:44→21:48)
[2019-03-15] MEDS: Insulin Lispro 100 Unit/ML 3 ML KwikPen SUBCUT SCH ×4 (05:51→23:58)
[2019-03-15] MEDS: Albuterol/Ipratropium 3.0-0.5 MG/3 ML Neb Soln INH SCH ×4 (07:07→21:33)
--- NOTE | 2019-03-15 07:47 | PN ---
DATE OF SERVICE: 03/14/2019 The patient has been afebrile with stable vital signs. No major problems have been noted overnight. He is down to FiO2 of 35%, and we will see how things go with weaning trial today, which will be conducted per Dr. Jaffe. Otherwise, no flatus or bowel movement as of yet, and NG output is around 600 mL for the last 24 hours. Of note, his blood sugars have increased quite a bit over the last 48 hours, and we will begin some coverage with humulin. Otherwise, we will continue with the present TPN and antibiotics, will add Zithromax to augment GI tract motility, and continue the Zyvox until what is probably some staph from the sputum obtained after the endotracheal intubation has been worked up. Otherwise, the organism growing thus far, Strep viridans, should be extremely sensitive to the Zyvox. Haider Monae MD /[id number]
[2019-03-15] MEDS: Haloperidol Lactate 5 MG/ML SDV IVPUSH SCH ×2 (08:30→20:51)
[2019-03-15] MEDS: Levothyroxine 100 MCG Vial IVPUSH SCH (08:31)
[2019-03-15] MEDS: LORazepam 2 MG/ML SDV IVPUSH SCH ×2 (08:58→21:26)
[2019-03-15] MEDS: Linezolid 600 MG in Premix Bag 1 BAG IV SCH ×2 (09:45→22:13)
--- NOTE | 2019-03-15 11:26 | PCM.PN ---
- General Info Date of Service: 03/15/19 Subjective Update: Mr. Perez has been stable over the last 24 hours. Fluid intake was over output. He did well with spontaneous breathing trial this morning and has now been extubated, transition to noninvasive positive pressure ventilation. The cousins of use of BiPAP he is unable to provide meaningful information concerning symptoms or review of systems. - Patient Data Vitals - Most Recent: Last Vital Signs Temp 97.5 F 03/15/19 09:00 Pulse 105 H 03/15/19 11:00 Resp 15 03/15/19 11:00 BP 155/74 H 03/15/19 11:00 Pulse Ox 92 L 03/15/19 11:00 Weight - Most Recent: 167 lb 11.2 oz I&O - Last 24 Hours: Intake & Output 03/14/19 03/15/19 03/15/19 22:59 06:59 14:59 Intake Total 1457 1842 350 Output Total 665 1130 525 Balance 792 712 -175 Lab Results Last 24 Hours: Laboratory Results - last 24 hr 03/15/19 03/15/19 03/15/19 Range/Units 04:10 04:10 04:10 WBC 16.2 H (4.5-11.0) K/uL RBC 3.39 L (4.30-5.90) M/uL Hgb 9.7 L (12.0-15.0) g/dL Hct 31.6 L (40.0-54.0) % MCV 93 (80-98) fL MCH 29 (27-31) pg MCHC 31 L (32-36) % Plt Count 181 (150-400) K/uL Puncture Site A-line ABG pH 7.485 H (7.350-7.450) ABG pCO2 35.9 (35.0-42.0) mmHg ABG pO2 98.7 (75.0-100.0) mmHg ABG HCO3 26.8 H (22.0-26.0) mmol/L ABG Total CO2 24.5 (23.0-27.0) mmol/L ABG O2 Saturation 97.4 (95.0-98.0) % ABG O2 Content 13.5 L (15.0-23.0) %vol ABG Base Excess 3.7 mm/L ABG Hemoglobin 10.0 L (13.5-18.0) g/dL ABG Oxyhemoglobin 95.0 % ABG Carboxyhemoglobin 1.4 (0.0-1.6) % ABG Methemoglobin 1.1 % Andrew Test A-line O2 Delivery Device Ventilator Oxygen Flow Rate L Sodium 140 (140-148) mmol/L Potassium 4.3 (3.6-5.2) mmol/L Chloride 107 (100-108) mmol/L Carbon Dioxide 28 (21-32) mmol/L Anion Gap 4.8 L (5.0-14.0) mmol/L BUN 28 H (7-18) mg/dL Creatinine 1.3 (0.8-1.3) mg/dL Est Cr Clr Drug Dosing 51.86 mL/min Estimated GFR (MDRD) 57 L (>60) Glucose 287 H (74-106) mg/dL Calcium 8.0 L (8.5-10.1) mg/dL Phosphorus 4.1 (2.5-4.9) mg/dL Total Bilirubin 0.3 (0.2-1.0) mg/dL AST 27 (15-37) U/L ALT 49 (12-78) U/L Alkaline Phosphatase 117 H (46-116) U/L NT-Pro-B Natriuret Pep 333 H (5-125) pg/mL Total Protein 4.7 L (6.4-8.2) g/dL Albumin 1.4 L (3.4-5.0) g/dL Globulin 3.3 (2.3-3.5) g/dL Albumin/Globulin Ratio 0.4 L (1.2-2.2) Med Orders - Current: Current Medications Albuterol (Proventil Neb Soln) 2.5 mg NEB Q4H PRN PRN Reason: Shortness Of Breath/wheezing Last Admin: 03/10/19 00:24 Dose: 2.5 mg Albuterol/Ipratropium (Duoneb 3.0-0.5 Mg/3 Ml) 3 ml INH QIDRT WILI Last Admin: 03/15/19 10:39 Dose: 3 ml Dextrose (Glutose 15) 15 gm PO ASDIRECTED PRN PRN Reason: HYPOGLYCEMIA Dextrose/Water (Dextrose 50% In Water) 50 ml IVPUSH ASDIRECTED PRN PRN Reason: HYPOGLYCEMIA Diphenhydramine HCl (Benadryl) 25 mg IVPUSH Q4H PRN PRN Reason: Itching Furosemide (Lasix) 20 mg IVPUSH NOW ONE Stop: 03/15/19 11:22 Glucagon (Glucagen) 1 mg IM ASDIRECTED PRN PRN Reason: HYPOGLYCEMIA Haloperidol Lactate (Haldol) 2 mg IVPUSH Q4H PRN PRN Reason: Agitation Haloperidol Lactate (Haldol) 2.5 mg IVPUSH BID [facility] Last Admin: 03/15/19 08:30 Dose: 2.5 mg Heparin Sodium (Porcine) (Heparin Lock Flush 100 Units/Ml) 500 units FLUSH ASDIRECTED PRN PRN Reason: Keep Vein Open Last Admin: 03/11/19 08:30 Dose: 500 units Hydromorphone HCl (Dilaudid Ticket [employer]or 15 Mg In Ns 30 Ml) 0 mg IV ASDIRECTED PRN; Protocol PRN Reason: PAIN Last Admin: 03/12/19 22:12 Dose: 15 mg Valproic Acid 500 mg/ Sodium (Chloride) 55 mls @ 55 mls/hr IV Q8H [facility] Last Admin: 03/15/19 05:00 Dose: 55 mls/hr Heparin Sodium (Porcine) 5,000 (units/ Sodium Chloride) 501 mls @ 5 mls/hr IV ASDIRECTED [facility] Last Admin: 03/12/19 13:58 Dose: 5 mls/hr Propofol (Diprivan 100 Ml) 100 mls @ 2.191 mls/hr IV TITRATE WILI; Protocol Last Titration: 03/15/19 07:18 Dose: 0 mcg/kg/min, 0 mls/hr Sodium Chloride (Normal Saline) 1,000 mls @ 20 mls/hr IV ASDIRECTED [facility] Last Admin: 03/13/19 22:58 Dose: 20 mls/hr Linezolid 600 mg/ Premix 300 mls @ 300 mls/hr IV Q12H [facility] Last Admin: 03/15/19 09:45 Dose: 300 mls/hr Magnesium Sulfate 2 gm/ Premix 50 mls @ 25 mls/hr IV Q6H [facility] Stop: 03/16/19 03:59 Last Admin: 03/15/19 08:20 Dose: 25 mls/hr Azithromycin 250 mg/ Sodium (Chloride) 150 mls @ 150 mls/hr IV Q24H [facility] Last Admin: 03/14/19 11:44 Dose: 150 mls/hr Multivitamins/Minerals 10 ml/Chromium/Copper/Manganese/Seleni/Zn 1 ml/ Amino Ac/ Electrol/Dextrose/Calcium 1,011 mls @ 82 mls/hr IV .BY DURATION [facility] Last Admin: 03/14/19 13:33 Dose: 82 mls/hr Amino Ac/Electrol/Dextrose/Calcium (Clinimix E 15) 1,000 mls @ 82 mls/hr IV .BY DURATION [facility] Last Admin: 03/15/19 01:36 Dose: 82 mls/hr Insulin Glargine (Lantus Solostar) 10 units SUBCUT BID [facility] Insulin Human Lispro (Humalog) 0 unit SUBCUT ASDIRECTED [facility]; Protocol Last Admin: 03/15/19 05:51 Dose: 9 units Latanoprost (Xalatan 0.005% Ophth Soln) 0 ml EYEBOTH BEDTIME [facility] Last Admin: 03/14/19 20:37 Dose: 1 drop Levothyroxine Sodium (Synthroid) 100 mcg IVPUSH DAILY [facility] Last Admin: 03/15/19 08:31 Dose: 100 mcg Lorazepam (Ativan) 0.5 mg IVPUSH Q4H PRN PRN Reason: Anxiety Lorazepam (Ativan) 0.5 mg IVPUSH BID [facility] Last Admin: 03/15/19 08:58 Dose: 0.5 mg Metoprolol Tartrate (Lopressor) 5 mg IV Q6H [facility] Last Admin: 03/15/19 05:44 Dose: 5 mg Naloxone HCl (Narcan) 0.1 mg IV ASDIRECTED PRN PRN Reason: decreased respiratory rate Ondansetron HCl (Zofran) 4 mg IVPUSH Q4H PRN PRN Reason: Nausea/Vomiting Last Admin: 03/09/19 20:57 Dose: 4 mg Pantoprazole Sodium (Protonix Iv) 40 mg IV Q24H [facility] Last Admin: 03/14/19 17:49 Dose: 40 mg Sodium Chloride (Joseph 128 5% Ophth Soln) 0 ml EYEBOTH QID [facility] Last Admin: 03/15/19 09:45 Dose: 2 drop Discontinued Medications Acetylcysteine (Mucomyst 20%) 400 mg INH BIDRT [facility] Last Admin: 03/12/19 07:48 Dose: 200 mg Acetylcysteine (Mucomyst 20%) 200 mg INH BIDRT [facility] Stop: 03/12/19 23:59 Last Admin: 03/12/19 20:44 Dose: 200 mg Bupivacaine HCl (Marcaine 0.5%) Confirm Administered Dose 50 ml .ROUTE .STK-MED ONE Stop: 03/10/19 06:23 Bupivacaine HCl (Marcaine 0.5%) Confirm Administered Dose 50 ml .ROUTE .STK-MED ONE Stop: 03/11/19 07:19 Last Admin: 03/11/19 07:28 Dose: 15 ml Ropivacaine 36 ml/Dexamethasone 8 mg/Epinephrine HCl 0.4 mg/ Sodium Chloride 41.6 ml 0 ml NERVRT ASDIRECTED [facility] Last Admin: 03/08/19 15:05 Dose: 80 syringe Ropivacaine 36 ml/Dexamethasone 8 mg/Epinephrine HCl 0.4 mg/ Sodium Chloride 41.6 ml 0 ml NERVRT ASDIRECTED [facility] Last Admin: 03/11/19 07:41 Dose: 80 syringe Dexamethasone (Dexamethasone) Confirm Administered Dose 4 mg .ROUTE .STK-MED ONE Stop: 03/08/19 12:18 Diphenhydramine HCl (Benadryl) 25 mg IVPUSH Q6H PRN PRN Reason: Itching Diphenhydramine HCl (Benadryl) 25 mg PO Q6H PRN PRN Reason: Itching Fentanyl (Sublimaze) Confirm Administered Dose 250 mcg .ROUTE .STK-MED ONE Stop: 03/08/19 12:19 Furosemide (Lasix) 20 mg IVPUSH ONETIME ONE Stop: 03/09/19 21:56 Last Admin: 03/09/19 22:10 Dose: 20 mg Furosemide (Lasix) Confirm Administered Dose 20 mg .ROUTE .STK-MED ONE Stop: 03/09/19 22:05 Last Admin: 03/09/19 22:10 Dose: Not Given Furosemide (Lasix) 20 mg IVPUSH ONETIME ONE Stop: 03/10/19 06:33 Last Admin: 03/10/19 07:20 Dose: 20 mg Furosemide (Lasix) 20 mg IVPUSH ONETIME ONE Stop: 03/12/19 18:01 Last Admin: 03/12/19 17:43 Dose: 20 mg Furosemide (Lasix) 20 mg IVPUSH ONETIME ONE Stop: 03/12/19 07:31 Last Admin: 03/12/19 07:44 Dose: 20 mg Furosemide (Lasix) 10 mg IVPUSH Q12H [facility] Stop: 03/13/19 21:01 Last Admin: 03/13/19 20:29 Dose: 10 mg Glycopyrrolate (Robinul) Confirm Administered Dose 1 mg .ROUTE .STK-MED ONE Stop: 03/08/19 12:18 Haloperidol Lactate (Haldol) 5 mg IVPUSH BID [facility] Last Admin: 03/09/19 09:06 Dose: 5 mg Heparin Sodium (Porcine) (Heparin Sodium) Confirm Administered Dose 5,000 units .ROUTE .K-MED ONE Stop: 03/10/19 07:04 Last Admin: 03/10/19 07:57 Dose: Not Given Heparin Sodium (Porcine) (Heparin Lock Flush 100 Units/Ml) Confirm Administered Dose 1,000 units .ROUTE .STK-MED ONE Stop: 03/11/19 07:32 Last Admin: 03/11/19 08:31 Dose: Not Given Sodium Chloride (Normal Saline) 1,000 mls @ 1,000 mls/hr IV ASDIRECTED [facility] Last Admin: 03/08/19 10:02 Dose: 1,000 mls/hr Ampicillin Sodium/Sulbactam (Sodium 1.5 gm/ Sodium Chloride) 50 mls @ 100 mls/ hr IV Q6H [facility] Last Admin: 03/08/19 13:30 Dose: 100 mls/hr Aztreonam 1 gm/ Sodium (Chloride) 50 mls @ 100 mls/hr IV Q12H [facility] Last Admin: 03/08/19 13:30 Dose: 100 mls/hr Lactated Ringer's (Ringers, Lactated) 1,000 mls @ 150 mls/hr IV ASDIRECTED [facility] Last Admin: 03/08/19 13:31 Dose: 150 mls/hr Lactated Ringer's (Ringers, Lactated) Confirm Administered Dose 1,000 mls @ as directed .ROUTE .STK-MED ONE Stop: 03/08/19 15:16 Lactated Ringer's (Ringers, Lactated) 1,000 mls @ 100 mls/hr IV ASDIRECTED [facility] Last Admin: 03/09/19 03:26 Dose: 100 mls/hr Dextrose/Lactated Ringer's (Dextrose 5%-Lactated Ringers) 1,000 mls @ 100 mls/ hr IV ASDIRECTED [facility] Stop: 03/12/19 11:59 Last Admin: 03/11/19 23:35 Dose: 100 mls/hr Ampicillin Sodium/Sulbactam (Sodium 3 gm/ Sodium Chloride) 100 mls @ 200 mls/ hr IV Q6H [facility] Last Admin: 03/13/19 05:19 Dose: 200 mls/hr Aztreonam 1 gm/ Sodium (Chloride) 50 mls @ 100 mls/hr IV Q8H [facility] Last Admin: 03/13/19 04:23 Dose: 100 mls/hr Potassium Chloride 20 meq/Lidocaine HCl 2 ml/ Sodium Chloride 112 mls @ 56 mls/ hr IV Q2H [facility] Stop: 03/09/19 15:59 Last Admin: 03/09/19 17:30 Dose: 56 mls/hr Lactated Ringer's (Ringers, Lactated) 750 mls @ 750 mls/hr IV [facility] ONE Stop: 03/09/19 16:25 Last Admin: 03/09/19 15:53 Dose: 750 mls/hr Lactated Ringer's (Ringers, Lactated) 750 mls @ 999 mls/hr IV BOLUS ONE Stop: 03/09/19 21:15 Last Admin: 03/09/19 21:08 Dose: 999 mls/hr Linezolid 600 mg/ Premix 300 mls @ 300 mls/hr IV Q12H [facility] Last Admin: 03/11/19 21:53 Dose: 300 mls/hr Potassium Chloride 20 meq/Lidocaine HCl 2 ml/ Sodium Chloride 112 mls @ 56 mls/ hr IV Q2H [facility] Stop: 03/10/19 16:29 Last Admin: 03/10/19 16:07 Dose: 56 mls/hr Potassium Chloride 20 meq/ (Premix) 0 mls @ 50 mls/hr IV Q2H [facility] Stop: 03/11/19 07:28 Last Admin: 03/11/19 07:32 Dose: 50 mls/hr Magnesium Sulfate 2 gm/ Premix 50 mls @ 25 mls/hr IV Q6H [facility] Last Admin: 03/12/19 04:27 Dose: 25 mls/hr Potassium Phosphate 20 mmole/ (Sodium Chloride) 256.6667 mls @ 85 mls/hr IV Q3H [facility] Stop: 03/11/19 17:59 Last Admin: 03/11/19 14:42 Dose: 85 mls/hr Multivitamins/Minerals 10 ml/Chromium/Copper/Manganese/Seleni/Zn 1 ml/ Amino Ac/ Electrol/Dextrose/Calcium 1,011 mls @ 82 mls/hr IV .BY DURATION [facility] Last Admin: 03/13/19 12:34 Dose: 82 mls/hr Amino Ac/Electrol/Dextrose/Calcium (Clinimix E 15) 1,000 mls @ 82 mls/hr IV .BY DURATION [facility] Last Admin: 03/14/19 01:20 Dose: 82 mls/hr Potassium Phosphate 20 mmole/ (Sodium Chloride) 256.6667 mls @ 85.556 mls/hr IV Q3H [facility] Stop: 03/12/19 16:59 Last Admin: 03/12/19 14:49 Dose: 85.556 mls/hr Potassium Chloride 20 meq/ (Premix) 100 mls @ 50 mls/hr IV ONETIME ONE Stop: 03/13/19 10:59 Last Admin: 03/13/19 09:29 Dose: 50 mls/hr Potassium Phosphate 30 mmole/ (Sodium Chloride) 110 mls @ 30 mls/hr IV ONETIME ONE Stop: 03/13/19 14:39 Last Admin: 03/13/19 12:14 Dose: 30 mls/hr Azithromycin 250 mg/ Sodium (Chloride) 150 mls @ 150 mls/hr IV Q12H [facility] Insulin Human Lispro (Humalog) 0 unit SUBCUT Q6H PRN; Protocol PRN Reason: MEDIUM CORRECTIONAL DOSING Last Admin: 03/14/19 17:42 Dose: 7 units Insulin Human Lispro (Humalog) 15 unit SUBCUT ONETIME ONE Stop: 03/14/19 12:05 Last Admin: 03/14/19 12:10 Dose: 15 units Insulin Human Lispro (Humalog) 0 unit SUBCUT ONETIME ONE Stop: 03/15/19 00:16 Last Admin: 03/15/19 00:25 Dose: 12 units Lidocaine HCl (Xylocaine-Mpf 1%) 5 ml INJECT ONETIME ONE Stop: 03/11/19 05:30 Last Admin: 03/11/19 05:39 Dose: 2 ml Lidocaine/Epinephrine (Xylocaine 1% With Epinephrine 1:100,000) Confirm Administered Dose 50 ml .ROUTE .STK-MED ONE Stop: 03/10/19 06:23 Lidocaine/Epinephrine (Xylocaine 1% With Epinephrine 1:100,000) Confirm Administered Dose 50 ml .ROUTE .STK-MED ONE Stop: 03/11/19 07:19 Last Admin: 03/11/19 07:28 Dose: 15 ml Linezolid (Zyvox) 600 mg IRR .STK-MED ONE Stop: 03/11/19 07:39 Last Admin: 03/11/19 07:38 Dose: 600 mg Lorazepam (Ativan) 0.5 mg IVPUSH BID [facility] Last Admin: 03/09/19 09:09 Dose: 0.5 mg Lorazepam (Ativan) 0.25 mg IVPUSH BID [facility] Last Admin: 03/10/19 09:09 Dose: 0.25 mg Meropenem (Merrem) Confirm Administered Dose 500 mg .ROUTE .STK-MED ONE Stop: 03/08/19 12:05 Last Admin: 03/08/19 14:00 Dose: 500 mg Meropenem (Merrem) Confirm Administered Dose 500 mg .ROUTE .STK-MED ONE Stop: 03/10/19 06:23 Meropenem (Merrem) Confirm Administered Dose 500 mg .ROUTE .STK-MED ONE Stop: 03/11/19 06:45 Last Admin: 03/11/19 07:38 Dose: 500 mg Neostigmine Methylsulfate (Neostigmine) Confirm Administered Dose 5 mg .ROUTE .STK-MED ONE Stop: 03/08/19 12:18 Ondansetron HCl (Zofran) Confirm Administered Dose 4 mg .ROUTE .STK-MED ONE Stop: 03/08/19 12:18 Ondansetron HCl (Zofran) 4 mg IVPUSH Q6H PRN PRN Reason: Nausea/Vomiting Propofol (Diprivan 20 Ml) Confirm Administered Dose 200 mg .ROUTE .STK-MED ONE Stop: 03/08/19 12:18 Propofol (Diprivan 20 Ml) Confirm Administered Dose 200 mg .ROUTE .STK-MED ONE Stop: 03/10/19 07:33 Rocuronium [place] (Zemuron) Confirm Administered Dose 50 mg .ROUTE .STK-MED ONE Stop: 03/08/19 12:18 Succinylcholine Chloride (Quelicin) Confirm Administered Dose 200 mg .ROUTE .STK -MED ONE Stop: 03/08/19 12:18 Succinylcholine Chloride (Quelicin) Confirm Administered Dose 200 mg .ROUTE .STK -MED ONE Stop: 03/10/19 07:33 - Exam Quality Assessment: Supplemental Oxygen (BiPAP), Central Line/PICC, Urine Catheter, DVT Prophylaxis General: Alert, Cooperative, Mild Distress Lungs: Clear to Auscultation, Normal Respiratory Effort Cardiovascular: Regular Rate, Regular Rhythm, No Murmurs GI/Abdominal Exam: Soft, No Organomegaly, Tender. No: Distended, Guarding, Rigid, Rebound Extremities: Non-Tender, Pedal Edema - Problem List Review Problem List Initiated/Reviewed/Updated: Yes - My Orders Last 24 Hours: My Active Orders 03/15/19 00:12 Communication Order [RC] PRN Communication Order [RC] PRN Diabetes Education [RC] Click to Edit 03/15/19 00:15 Insulin Lispro [HumaLOG] See Protocol SUBCUT ASDIRECTED 03/15/19 08:00 RT Ventilator Weaning [RC] DAILY 03/15/19 11:19 BIPAP Adult [RT BiPAP/CPAP] [RC] ASDIRECTED 03/15/19 11:21 Furosemide [Lasix] 20 mg IVPUSH NOW ONE 03/15/19 12:00 BLOOD GAS ARTERIAL [BG] Stat 03/15/19 21:00 Insulin Glarg,Human.Rec.Analog [LantUS Solostar] 10 units SUBCUT BID 03/16/19 09:00 Communication Order [RC] DAILY - Plan Plan:: ASSESSMENT AND PLAN - Small bowel obstruction with pneumatosis - status post emergent laparotomy with small bowel resection and right colectomy 03/08. No return of bowel function yet. -Postoperative care per surgical team -He is receiving TPN -Gentle IV fluids -Pain control -NG tube drainage Acute respiratory failure with hypoxia - 2/2 schizophrenia and weakness. Stable thus far status post extubation -Furosemide 20 mg IV today -Noninvasive positive pressure ventilation -Antibiotic coverage with linezolid until cultures are final -f/u culture Type 2 diabetes mellitus-glucose levels elevated above desired range -Continue glucometers every 6 hours -Regular insulin 15 units added to each liter of TPN -High dose sliding scale Humalog -Lantus 10 units subcutaneous twice daily Hypokalemia - potassium level improved with supplementation. -Replace as ordered -Recheck in the morning Severe schizophrenia - patient is very debilitated because of his psychiatric illness. Psych illness has contributed to resp decline and will be a very large barrier to extubation. -Continue low-dose Haldol -Continue regular dose Depakote -low dose lorazepam -Restart oral medications when able Acute kidney injury - due to poor intake and small bowel obstruction. Creatinine back to baseline. -continue gentle IV fluid resuscitation -Repeat labs in the morning Maintenance issues - - DVT prophylaxis - mechanical - GI prophylaxis - IV PPI - Nutrition - nothing by mouth - Rodriguez catheter - placed for strict intake and output monitoring with a critical patient Disposition - anticipate discharge home versus more likely the group home
[2019-03-15] MEDS ORDERED: Furosemide 20 MG/2 ML VIAL IVPUSH ONE (11:30)
--- NOTE | 2019-03-15 13:20 | PCM.HP.2 ---
H&P History of Present Illness - General Date of Service: 03/08/19 Admit Problem/Dx: Admission Diagnosis/Problem Admission Diagnosis/Problem Small bowel obstruction due to adhesions Source of Information: Other (long-term care provider). No: Patient History Limitations: Reports: Altered Mental Status - History of Present Illness Initial Comments - Free Text/Narative: CC: weak and lethargic HPI: Tuan presented to the ER today with abdominal pain, distention and nausea with vomiting. He is lethargic at this time and unable to provide any history. His hx is gathered via ER staff and his halfway care asst. Over the past three days he has had progressive distention abdomen with increasing pain. he is able to point to the lower abdomen but is not able to describe his pain or tell me if it radiates. He does not his head when asked if the pain is getting worse. He hasn't taken anything at home to make it better. He has had multiple rounds of nausea and 3 large emesis in the last 24 hours. He has had some watery stool but no normal bowel movements. Staff has not been aware of any fevers. They have not noticed any obvious dyspnea or cough. He has become progressively weak and is unable to transfer like usual. He has had very little solid food intake but has been keeping down liquids and Gatorade until yesterday evening. Staff has noticed that his abdomen has increased in size significantly over the past 24 hours. Workup in the emergency room revealed acute kidney injury with a creatinine up to 3.7 with a baseline of 1. CT scan of the abdomen showed dilated loops of small bowel concerning for small bowel obstruction. Also noted was pneumatosis involving the small bowel in the midabdomen and partially in the descending colon. An NG tube will be placed in the emergency room. Antibiotics are being initiated. He'll be admitted for management of a small bowel obstruction and surgery is planned for later that day with the pneumatosis. I did talk to his guardian Leelee Gómez and she was agreeable to the urgent surgical intervention. - Related Data Allergies/Adverse Reactions: Allergies Allergy/AdvReac Type Severity Reaction Status Date / Time No Known Allergies Allergy Verified 05/28/18 13:05 Home Medications: Home Meds *Antacid Tablets 2 - 4 tab PO Q4HR PRN 04/15/13 [History] Atenolol 100 mg PO DAILY 04/15/13 [History] Bisacodyl [Biscolax] 10 mg RC DAILY 04/15/13 [History] Bisacodyl [Laxative] 10 mg PO DAILY 04/15/13 [History] Doxazosin Mesylate [Cardura] 4 mg PO DAILY 04/15/13 [History] Famotidine 40 mg PO BID 04/15/13 [History] Haloperidol 10 mg PO BID 04/15/13 [History] Ibuprofen [Motrin] 600 mg PO Q6H PRN 04/15/13 [History] LORazepam [Ativan] 1 mg PO BID 04/15/13 [History] LORazepam [Ativan] 1 mg PO BID PRN 04/15/13 [History] Polyethylene Glycol 3350 [MiraLAX] 17 gm PO ASDIRECTED 04/15/13 [History] cloZAPine [Clozapine] 450 mg PO QPM 04/15/13 [History] diphenhydrAMINE [Benadryl] 25 mg PO QAM 04/15/13 [History] diphenhydrAMINE [Benadryl] 100 mg PO QPM 04/15/13 [History] Latanoprost [Xalatan 0.005% Ophth Soln] 1 drop OP DAILY 10/06/13 [History] Ibuprofen 600 mg PO Q6HR PRN 10/01/17 [History] Divalproex Sodium 1,500 mg PO BEDTIME 12/03/17 [History] Levothyroxine [Synthroid] 88 mcg PO ACBREAKFAST 12/03/17 [History] Sodium Chloride 5% [Joseph 128 5% Ophth Soln] 1 drop EYEBOTH QID 12/07/17 [History ] Sennosides/Docusate Sodium [Senna-S] 1 each PO DAILY 03/08/19 [History] Past Medical History - Past Health History Medical/Surgical History: Denies Medical/Surgical History HEENT History: Reports: Glaucoma, Impaired Vision Cardiovascular History: Reports: Hypertension Gastrointestinal History: Reports: Bowel Obstruction, Colon Polyp Musculoskeletal History: Reports: Arthritis Psychiatric History: Reports: Anxiety, Mood Swings, Schizophrenia Endocrine/Metabolic History: Reports: Hypothyroidism - Infectious Disease History Infectious Disease History: Reports: Chicken Pox - Past Surgical History Head Surgeries/Procedures: Reports: None HEENT Surgical History: Reports: None Cardiovascular Surgical History: Reports: None GI Surgical History: Reports: Colonoscopy, Small Bowel Endocrine Surgical History: Reports: None Musculoskeletal Surgical History: Reports: None Dermatological Surgical History: Reports: None Social & Family History - Family History Family Medical History: Noncontributory - Tobacco Use Smoking Status *Q: Never Smoker - Caffeine Use Caffeine Use: Reports: Soda - Alcohol Use Alcohol Use History: No - Living Situation & Occupation Living situation: Reports: Other H&P Review of Systems - Review of Systems: Review Of Systems: Unable To Obtain (pt is very lethargic and unable to answer any questions) Exam - Exam Exam: See Below - Vital Signs Vital Signs: Last Vital Signs Temp 35.5 C 03/08/19 09:43 Pulse 91 03/08/19 11:12 Resp 16 03/08/19 09:43 BP 108/72 03/08/19 11:12 Pulse Ox 97 03/08/19 11:12 Weight: 73.028 kg - Exam Quality Assessment: No: Supplemental Oxygen General: Mild Distress, Lethargic. No: Alert, Cooperative HEENT: Conjunctiva Clear. No: Mucosa Moist & [place] (dry), Scleral Icterus Neck: Supple, Trachea Midline. No: Lymphadenopathy Lungs: Clear to Auscultation, Normal Respiratory Effort Cardiovascular: Regular Rhythm, Tachycardia GI/Abdominal Exam: Distended, Tender, Abnormal Bowel Sounds. No: Soft, Guarding Extremities: No Pedal Edema. No: Increased Warmth Peripheral Pulses: 1+: Dorsalis Pedis (L), Dorsalis Pedis (R) Skin: Warm, Dry Neuro Extensive - Mental Status: No: Alert, Nl Response to Commands Neuro Extensive - Motor, Sensory, Reflexes: No: Abnormal Motor, Tremor Psychiatric: No: Alert, Agitated - Patient Data Lab Results Last 24 hrs: Laboratory Results - last 24 hr 03/08/19 03/08/19 03/08/19 Range/Units 09:58 09:58 09:58 WBC 9.5 (4.5-11.0) K/uL RBC 4.73 (4.30-5.90) M/uL Hgb 13.9 D (12.0-15.0) g/dL Hct 41.3 (40.0-54.0) % MCV 87 (80-98) fL MCH 29 (27-31) pg MCHC 34 (32-36) % Plt Count 310 (150-400) K/uL Add Manual Diff Yes Neutrophils % (Manual) 63 (36-66) % Band Neutrophils % 3 L (5-11) % Lymphocytes % (Manual) 14 L (24-44) % Monocytes % (Manual) 19 H (2-6) % Eosinophils % (Manual) 1 L (2-4) % Sodium 133 L (140-148) mmol/L Potassium 3.0 L (3.6-5.2) mmol/L Chloride 85 L (100-108) mmol/L Carbon Dioxide 35 H (21-32) mmol/L Anion Gap 16.0 H (5.0-14.0) mmol/L BUN 57 H D (7-18) mg/dL Creatinine 3.7 H* D (0.8-1.3) mg/dL Est Cr Clr Drug Dosing 18.22 mL/min Estimated GFR (MDRD) 17 L (>60) Glucose 120 H (74-106) mg/dL Lactic Acid (0.4-2.0) mmol/L Calcium 8.2 L (8.5-10.1) mg/dL Total Bilirubin 0.4 (0.2-1.0) mg/dL AST 20 (15-37) U/L ALT 21 (12-78) U/L Alkaline Phosphatase 75 (46-116) U/L Total Protein 6.5 (6.4-8.2) g/dL Albumin 3.1 L (3.4-5.0) g/dL Globulin 3.4 (2.3-3.5) g/dL Albumin/Globulin Ratio 0.9 L (1.2-2.2) Amylase 20 L (25-115) U/L Lipase 86 (73-393) U/L 03/08/19 Range/Units 09:58 WBC (4.5-11.0) K/uL RBC (4.30-5.90) M/uL Hgb (12.0-15.0) g/dL Hct (40.0-54.0) % MCV (80-98) fL MCH (27-31) pg MCHC (32-36) % Plt Count (150-400) K/uL Add Manual Diff Neutrophils % (Manual) (36-66) % Band Neutrophils % (5-11) % Lymphocytes % (Manual) (24-44) % Monocytes % (Manual) (2-6) % Eosinophils % (Manual) (2-4) % Sodium (140-148) mmol/L Potassium (3.6-5.2) mmol/L Chloride (100-108) mmol/L Carbon Dioxide (21-32) mmol/L Anion Gap (5.0-14.0) mmol/L BUN (7-18) mg/dL Creatinine (0.8-1.3) mg/dL Est Cr Clr Drug Dosing mL/min Estimated GFR (MDRD) (>60) Glucose (74-106) mg/dL Lactic Acid 3.8 H (0.4-2.0) mmol/L Calcium (8.5-10.1) mg/dL Total Bilirubin (0.2-1.0) mg/dL AST (15-37) U/L ALT (12-78) U/L Alkaline Phosphatase (46-116) U/L Total Protein (6.4-8.2) g/dL Albumin (3.4-5.0) g/dL Globulin (2.3-3.5) g/dL Albumin/Globulin Ratio (1.2-2.2) Amylase (25-115) U/L Lipase (73-393) U/L Result Diagrams: 03/08/19 09:58 03/08/19 09:58 Imaging Impressions Last 24 hrs: CT abd/pelvis - images personally reviewed - there are multiple loops of dilated bowel in the midabdomen consistent with SBO. There is pneumatosis of the bowel wall in the midabdomen and ascending colon concerning for ischemia. small free fluid in abdomen. *Q Meaningful Use (ADM) - VTE *Q VTE Pharmacological Contraindications *Q: Patient Scheduled Surgery - VTE Risk Assess *Q Each Risk Factor Represents 1 Point: Age 41 - 59 years, Obesity ( BMI > 25 kg/m2 ) Total Score 1 Point Risk Factors: 2 Each Risk Factor Represents 2 Points: None Total Score 2 Point Risk Factors: 0 Each Risk Factor Represents 3 Points: None Total Score 3 Point Risk Factors: 0 Each Risk Factor Represents 5 Points: None Total Score 5 Point Risk Factors: 0 Venous Thromboembolism Risk Factor Score *Q: 2 - Problem List (1) Small bowel obstruction due to adhesions SNOMED Code(s): 315289167 ICD Code: K56.50 - INTESTNL ADHESIONS, UNSP TO PARTIAL VERSUS COMPLETE OBST Status: Acute Current Visit: Yes (2) Acute kidney injury SNOMED Code(s): 41027643, 99596574 ICD Code: N17.9 - ACUTE KIDNEY FAILURE, UNSPECIFIED Status: Acute Current Visit: Yes (3) Schizophrenia SNOMED Code(s): 31206221 ICD Code: F20.9 - SCHIZOPHRENIA, UNSPECIFIED Status: Chronic Current Visit: No Qualifiers: Schizophrenia type: unspecified Qualified Code(s): F20.9 - Schizophrenia, unspecified (4) Hypothyroid SNOMED Code(s): 37933398 ICD Code: E03.9 - HYPOTHYROIDISM, UNSPECIFIED Status: Chronic Current Visit: No Qualifiers: Hypothyroidism type: acquired Qualified Code(s): E03.9 - Hypothyroidism, unspecified (5) HTN (hypertension) SNOMED Code(s): 52796202 ICD Code: I10 - ESSENTIAL (PRIMARY) HYPERTENSION Status: Chronic Current Visit: No Qualifiers: Hypertension type: essential hypertension Qualified Code(s): I10 - Essential (primary) hypertension Problem List Initiated/Reviewed/Updated: Yes Orders Last 24hrs: Active Orders 24 hr Category Date Time Status Patient Status Manage Transfer [TRANSFER] Routine ADT 03/08/19 11:55 Ordered NG [Gastrointestinal Tube Mgmt] [RC] ASDIRECTED Care 03/08/19 11:52 Active Ampicillin/Sulbactam Na [Unasyn] 1.5 gm Med 03/08/19 12:00 Active Sodium Chloride 0.9% [Normal Saline] 50 ml IV Q6H Aztreonam [Azactam] 1 gm Med 03/08/19 12:00 Active Sodium Chloride 0.9% [Normal Saline] 50 ml IV Q12H Lactated Ringers [Ringers, Lactated] 1,000 ml Med 03/08/19 12:00 Active IV ASDIRECTED Sodium Chloride 0.9% [Normal Saline] 1,000 ml Med 03/08/19 10:00 Active IV ASDIRECTED NG [Nasogastric Orogastric Tube Insertion] [OM.PC] Oth 03/08/19 11:52 Ordered Routine Resuscitation Status Routine Resus Stat 03/08/19 11:58 Ordered Medication Orders Sodium Chloride (Normal Saline) 1,000 mls @ 1,000 mls/hr IV ASDIRECTED WILI Last Admin: 03/08/19 10:02 Dose: 1,000 mls/hr Ampicillin Sodium/Sulbactam (Sodium 1.5 gm/ Sodium Chloride) 50 mls @ 100 mls/ hr IV Q6H [facility]I Aztreonam 1 gm/ Sodium (Chloride) 50 mls @ 100 mls/hr IV Q12H [facility] Lactated Ringer's (Ringers, Lactated) 1,000 mls @ 150 mls/hr IV ASDIRECTED [facility] Assessment/Plan Comment:: ASSESSMENT AND PLAN - Small bowel obstruction with pneumatosis - Transition point is in the midabdomen and several areas of pneumatosis are noted. Patient does have a history of previous small bowel resection. He has had previous small bowel obstructions which have previously been managed nonsurgically. Surgery has been consulted and the patient will be taken to the operating room in the near future with concern that he may have ischemic bowel. Antibiotics were initiated in the emergency room. -IV fluids -Pain control -Antibiotic coverage with Unasyn and aztreonam -NG tube placement -Surgical consultation with surgery planned later in the day Severe schizophrenia - patient is on multiple different medications including Clozaril. He is a long-term resident of a halfway. He'll be unable to take oral medications for some time likely. -IV lorazepam, Haldol, Depakote Acute kidney injury - due to poor intake and small bowel obstruction. I would anticipate this will improve with hydration. -Aggressive IV fluid resuscitation -Repeat labs in the morning Maintenance issues - - DVT prophylaxis - mechanical - GI prophylaxis - IV PPI - Nutrition - nothing by mouth - Rodriguez catheter - will be placed for strict intake and output monitoring with a critical patient CODE STATUS - full code Admission justification - This patient will be admitted for inpatient services and is medically appropriate meeting medical necessity for inpatient admission as outlined in my documentation. I reasonably expect the patient will require inpatient services that span a period time over 2 midnights. I reasonably expect this patient to be discharged or transferred within 96 hours [facility]. Disposition - anticipate discharge home versus possibly the long term Primary care physician - Rand Nj M.D. - Mortality Measure Prognosis:: Poor
[2019-03-15] MEDS: Haloperidol Lactate 5 MG/ML SDV IVPUSH PRN (16:10)
[2019-03-15] MEDS: LORazepam 2 MG/ML SDV IVPUSH PRN (16:43)
[2019-03-15] MEDS: Pantoprazole 40 MG Vial IV SCH (17:16)
[2019-03-15] MEDS: Latanoprost 0.005% Ophth Soln 2.5 ML Bottle EYEBOTH SCH (21:48)
[2019-03-15] MEDS: Insulin Glargine,Human Rec. Analog 100 Units/ML 3 ML Pen SUBCUT SCH (22:00)
[2019-03-16] MEDS: 1: AA 5%/Calcium/D15W/Lytes 1,000 ML with MVI, Adult with Vitamin K 10 ML, Chromium/Copp IV SCH ×6 (01:51→14:06)
[2019-03-16] MEDS: Magnesium Sulfate/Water 2 GM in Premix Bag 1 BAG IV SCH (01:59)
[2019-03-16] MEDS: Metoprolol Tartrate 5 MG/5 ML SDV IV SCH ×4 (05:24→23:39)
[2019-03-16] MEDS: Sodium Chloride 5% Ophth Soln 15 ML Bottle EYEBOTH SCH ×4 (05:31→21:52)
[2019-03-16] MEDS: Insulin Lispro 100 Unit/ML 3 ML KwikPen SUBCUT SCH ×4 (05:55→23:51)
[2019-03-16] MEDS: Albuterol/Ipratropium 3.0-0.5 MG/3 ML Neb Soln INH SCH ×4 (06:59→20:56)
[2019-03-16] MEDS: Levothyroxine 100 MCG Vial IVPUSH SCH (09:17)
[2019-03-16] MEDS: Haloperidol Lactate 5 MG/ML SDV IVPUSH SCH ×2 (09:18→20:54)
[2019-03-16] MEDS: Insulin Glargine,Human Rec. Analog 100 Units/ML 3 ML Pen SUBCUT SCH ×2 (09:27→21:00)
[2019-03-16] MEDS: LORazepam 2 MG/ML SDV IVPUSH SCH ×2 (09:28→20:50)
[2019-03-16] MEDS: Linezolid 600 MG in Premix Bag 1 BAG IV SCH ×2 (09:31→21:52)
--- NOTE | 2019-03-16 10:18 | PN ---
DATE OF SERVICE: 03/16/2019 The patient has been afebrile with stable vital signs. Blood sugar control has been a little bit better, although he still has somewhat elevated white count and he was successfully extubated yesterday being maintained on BiPAP with satisfactory gases. suctioning. His cough, however, is a little bit better than it had been prior to intubation. At any rate, the NG output has been minimal overnight and we will discontinue the NG tube. Continue the BiPAP per Dr. Jaffe. Try getting him up in the chair today. We will begin feeding the patient until a little bit beyond leading to more active suctioning to avoid aspiration risk. Otherwise, continue TPN and present medical management with assistance of Dr. Jaffe. Haider Monae MD /[id number]
--- NOTE | 2019-03-16 10:45 | OR ---
DATE OF PROCEDURE: 03/11/2019 PREOPERATIVE DIAGNOSIS: Open abdominal incision. POSTOPERATIVE DIAGNOSIS: Open abdominal incision. PROCEDURE: Delayed primary closure of open abdominal incision. ANESTHESIA: Local plus IV sedation. INDICATIONS FOR PROCEDURE: The patient is 72 hours status post a complicated small-bowel resection and was felt to be at high risk for wound infection if the primary closure was undertaken. Given this, the wound was packed open for a planned delayed primary closure at this time. Potential risks of the procedure including bleeding and infection had been reviewed with the patient's guardian and she wishes to proceed. DETAILS OF PROCEDURE: The patient was in his ICU bed, remaining on the ventilator. receiving IV sedation in the form of propofol. Operative dressing was then taken down and the wound was inspected and found to be clean. Bilateral transversus abdominis plane blocks were then placed using ultrasound guidance and the incision was then prepped and draped, anesthetized with 1% lidocaine mixed with Marcaine and then closed with 2 layers of 3-0 Vicryl stitch deep and agus for the skin. Dressing was applied. There were no other complications. Haider Monae MD /[id number]
--- NOTE | 2019-03-16 11:18 | OR ---
DATE OF PROCEDURE: 03/08/2019 PREOPERATIVE DIAGNOSES: Small bowel obstruction with probable ischemic component. POSTOPERATIVE DIAGNOSES: 1. Severe adhesive small bowel obstruction with segment of small bowel fused with partially-necrotic transverse abdominal incision. 2. Marked dilation of proximal small bowel. 3. Possible focal area of ischemia, transverse colon. 4. Pelvic abscess subjacent to point of adhesion between small bowel and transverse abdominal incision. OPERATIVE PROCEDURES: Exploratory laparotomy with lysis of extensive adhesions with, 1. Small bowel resection (79005). 2. Resection of portion of adherent abdominal wall including peritoneum, fascia, and muscle (42 cm2 area) (34359, 84133). 3. Partial resection of portion of transverse colon (86219). 4. Enterotomy for tube decompression of small bowel (42946). 5. Drainage of pelvic abscess (42938). 6. Placement of Interceed mesh to limit recurrent adhesion formation between pelvic and abdominal diamond and underlying viscera (74993). ANESTHESIA: General. INDICATION FOR PROCEDURE: This is a 58-year-old with severe impairment related to schizophrenia and apparently by history of mental retardation, who has had several small bowel obstructions in the past. The patient has a low-transverse abdominal incision, but no available surgical history is present. At any rate, he has been admitted previously with small bowel obstructions, which have resolved with nasogastric suctioning. However, this obstruction appears to be quite more severe with quite severe abdominal distention. Massive dilation of the stomach prior to nasogastric tube placement and some air within the small bowel wall suggestive of significant ischemia. After discussion of the situation with the patient's guardian, the plan is to proceed with an exploratory laparotomy with procedures as indicated including probable bowel resection. Potential risks of the procedure were reviewed with the guardian including bleeding, infection, injury to underlying viscera, leaks from any GI tract closures, as well as the possibility of cardiopulmonary, septic, or hemorrhagic complications leading to , and the patient's guardian wishes to proceed. The patient himself is not functionally communicable. DETAILS OF PROCEDURE: The patient was taken to the operating room. After general endotracheal anesthesia was induced, a Rodriguez catheter was inserted, and the abdomen prepped and draped. Upper midline incision was then made, carried down through the full-thickness abdominal wall. The area we entered was free of adhesions, but as one presented down toward the mid and lower abdomen, there were extremely dense adhesions that were both chronic in terms of dense scar and quite edematous due to acute inflammation. There was a portion of the small bowel wall that had some obvious air within it, and this segment was subsequently resected. After quite tedious dissection, a large matted area of small bowel was from the abdominal wall. This included debridement of a fairly broad area of densely adherent peritoneum, fascia, and muscle to the bowel wall. This plane of dissection was incorporated due to there being some evident necrosis of the peritoneum and fascia, as well as wanting to avoid an enterotomy in what was otherwise a massively distended small bowel. Once this was accomplished, then as much of the fluid proximally and distally was milked into the point of small bowel to be resected. The 2 ends of the resection were divided with VIDYA agus as was the underlying mesentery and the small bowel specimen, which consisted of roughly around 2 feet of bowel, was delivered from the field. During the course of the dissection, there was a loculated fluid collection, which was extremely purulent, inferior to the point where the small bowel was attached to the transverse lower abdominal incision. This was evacuated and gram stain showed some gram- positive cocci consistent with this being a focal intraabdominal abscess. The proximal small bowel was massively distended and a small enterotomy was made in the proximal division of staple line and a [place] sump tube passed. A large volume of air and small bowel contents were removed, thus decompressing the proximal small bowel. At this point, the small bowel continuity was accomplished with a [id number] anastomosis between the 2 divided ends of small bowel. The patient had initial 60 mm internal firing, followed by 30 mm internal firing of the VIDYA agus. The common opening was closed transversely with purple load. The angles of anastomosis and mesenteric defect were approximated with some 3-0 Vicryl stitch. General exploration then was undertaken. The only additional abnormality was that of a blackened spot in the transverse colon, more or less was anterior mesenteric border. This was grasped upward, and the transverse excision of this segment was accomplished with a VIDYA stapler and that was then also reinforced with a 3-0 Vicryl seromuscular running stitch. After the initial resection, the peritoneal cavity was then irrigated with meropenem- containing saline solution. This was irrigated once again with meropenem until all areas were clear. A Stan-Mobley drain was placed through the stab wound in the right mid abdomen and taken across the area of the anastomosis and downward toward the pelvis. Both the small bowel anastomosis and the transverse colon closure were reinforced with some fibrin sealant with the latter also being reinforced with an omental patch placed over it and secured in a seromuscular plane with 3-0 Vicryl stitch. To try to minimize recurrent adhesion formation, Interceed mesh was then placed across the lower abdomen and pelvis, to displace those surfaces from the small bowel. The midline fascia was approximated with a #2 Vicryl stitch. The drain was fixed with some 2-0 Vicryl stitch. Prior to closure, the patient received bilateral transversus abdominis plane blocks as well, and was taken to the recovery room in a stable condition. There were no evident complications. The skin and subcutaneous tissue were left open for a planned delayed primary closure in 48 hours. Haider Monae MD /[id number]
--- NOTE | 2019-03-16 11:39 | PN ---
DATE OF SERVICE: 03/15/2019 The patient has been clinically stable. try some weaning today. Once again, blood sugar has been a little bit higher but we are not seeing any underlying sepsis. Otherwise, blood sugar is being managed per Dr. Jaffe. Otherwise, continue the present TPN. BOLA drain is returning completely serous and that will be removed today. Otherwise, continue TPN for an additional support. Recheck some labs in the morning and maintain range of motion on his limbs. Haider Monae MD /[id number]
--- NOTE | 2019-03-16 13:23 | PCM.PN ---
- General Info Date of Service: 03/16/19 Subjective Update: Mr. Perez has been stable since yesterday, tolerated extubation without significant difficulty. Overall respiratory status has been fairly stable, intermittent episodes of hypoxia secondary to secretions. Staff has been suctioning him frequently which has stabilized the situation. He is more alert but to this point not very interactive, does not answer specific questions. Still unable to provide meaningful information concerning symptoms or review of systems. - Patient Data Vitals - Most Recent: Last Vital Signs Temp 98.5 F 03/16/19 07:49 Pulse 107 H 03/16/19 13:00 Resp 22 H 03/16/19 13:00 BP 179/89 H 03/16/19 13:00 Pulse Ox 97 03/16/19 13:00 Weight - Most Recent: 167 lb 11.2 oz I&O - Last 24 Hours: Intake & Output 03/15/19 03/16/19 03/16/19 22:59 06:59 14:59 Intake Total 1337 2635 505 Output Total 1075 1500 800 Balance 262 1135 -295 Lab Results Last 24 Hours: Laboratory Results - last 24 hr 03/16/19 03/16/19 03/16/19 Range/Units 04:00 04:00 04:00 WBC 17.0 H (4.5-11.0) K/uL RBC 3.53 L (4.30-5.90) M/uL Hgb 10.0 L (12.0-15.0) g/dL Hct 32.5 L (40.0-54.0) % MCV 92 (80-98) fL MCH 28 (27-31) pg MCHC 31 L (32-36) % Plt Count 218 (150-400) K/uL Puncture Site A-line ABG pH 7.396 (7.350-7.450) ABG pCO2 45.5 H (35.0-42.0) mmHg ABG pO2 111.0 H (75.0-100.0) mmHg ABG HCO3 27.3 H (22.0-26.0) mmol/L ABG Total CO2 25.3 (23.0-27.0) mmol/L ABG O2 Saturation 97.5 (95.0-98.0) % ABG O2 Content 14.0 L (15.0-23.0) %vol ABG Base Excess 2.6 mm/L ABG Hemoglobin 10.2 L (13.5-18.0) g/dL ABG Oxyhemoglobin 96.2 % ABG Carboxyhemoglobin 0.3 (0.0-1.6) % ABG Methemoglobin 1.0 % Andrew Test Not performed O2 Delivery Device Ventilator Sodium 137 L (140-148) mmol/L Potassium 4.4 (3.6-5.2) mmol/L Chloride 103 (100-108) mmol/L Carbon Dioxide 30 (21-32) mmol/L Anion Gap 8.4 (5.0-14.0) mmol/L BUN 28 H (7-18) mg/dL Creatinine 1.2 (0.8-1.3) mg/dL Est Cr Clr Drug Dosing 56.19 mL/min Estimated GFR (MDRD) > 60 (>60) Glucose 212 H (74-106) mg/dL Calcium 7.9 L (8.5-10.1) mg/dL Phosphorus 4.7 (2.5-4.9) mg/dL Total Bilirubin 0.5 D (0.2-1.0) mg/dL AST 19 (15-37) U/L ALT 37 (12-78) U/L Alkaline Phosphatase 113 (46-116) U/L NT-Pro-B Natriuret Pep 434 H (5-125) pg/mL Total Protein 5.0 L (6.4-8.2) g/dL Albumin 1.6 L (3.4-5.0) g/dL Globulin 3.4 (2.3-3.5) g/dL Albumin/Globulin Ratio 0.5 L (1.2-2.2) Med Orders - Current: Current Medications Albuterol (Proventil Neb Soln) 2.5 mg NEB Q4H PRN PRN Reason: Shortness Of Breath/wheezing Last Admin: 03/10/19 00:24 Dose: 2.5 mg Albuterol/Ipratropium (Duoneb 3.0-0.5 Mg/3 Ml) 3 ml INH QIDRT [facility] Last Admin: 03/16/19 10:54 Dose: 3 ml Dextrose (Glutose 15) 15 gm PO ASDIRECTED PRN PRN Reason: HYPOGLYCEMIA Dextrose/Water (Dextrose 50% In Water) 50 ml IVPUSH ASDIRECTED PRN PRN Reason: HYPOGLYCEMIA Diphenhydramine HCl (Benadryl) 25 mg IVPUSH Q4H PRN PRN Reason: Itching Furosemide (Lasix) 20 mg IVPUSH NOW ONE Stop: 03/16/19 13:14 Glucagon (Glucagen) 1 mg IM ASDIRECTED PRN PRN Reason: HYPOGLYCEMIA Haloperidol Lactate (Haldol) 2 mg IVPUSH Q4H PRN PRN Reason: Agitation Last Admin: 03/15/19 16:10 Dose: 2 mg Haloperidol Lactate (Haldol) 2.5 mg IVPUSH BID [facility] Last Admin: 03/16/19 09:18 Dose: 2.5 mg Heparin Sodium (Porcine) (Heparin Lock Flush 100 Units/Ml) 500 units FLUSH ASDIRECTED PRN PRN Reason: Keep Vein Open Last Admin: 03/11/19 08:30 Dose: 500 units Hydromorphone HCl (Dilaudid Director Of User Experience 15 Mg In Ns 30 Ml) 0 mg IV ASDIRECTED PRN; Protocol PRN Reason: PAIN Last Admin: 03/12/19 22:12 Dose: 15 mg Valproic Acid 500 mg/ Sodium (Chloride) 55 mls @ 55 mls/hr IV Q8H [facility] Last Admin: 03/16/19 13:09 Dose: 55 mls/hr Heparin Sodium (Porcine) 5,000 (units/ Sodium Chloride) 501 mls @ 5 mls/hr IV ASDIRECTED [facility] Last Admin: 03/12/19 13:58 Dose: 5 mls/hr Propofol (Diprivan 100 Ml) 100 mls @ 2.191 mls/hr IV TITRATE [facility]; Protocol Last Titration: 03/15/19 07:18 Dose: 0 mcg/kg/min, 0 mls/hr Sodium Chloride (Normal Saline) 1,000 mls @ 20 mls/hr IV ASDIRECTED [facility] Last Admin: 03/13/19 22:58 Dose: 20 mls/hr Linezolid 600 mg/ Premix 300 mls @ 300 mls/hr IV Q12H [facility] Last Admin: 03/16/19 09:31 Dose: 300 mls/hr Azithromycin 250 mg/ Sodium (Chloride) 150 mls @ 150 mls/hr IV Q24H [facility] Last Admin: 03/16/19 12:04 Dose: 150 mls/hr Multivitamins/Minerals 10 ml/Chromium/Copper/Manganese/Seleni/Zn 1 ml/ Amino Ac/ Electrol/Dextrose/Calcium 1,011 mls @ 82 mls/hr IV .BY DURATION [facility] Last Admin: 03/15/19 13:34 Dose: 82 mls/hr Amino Ac/Electrol/Dextrose/Calcium (Clinimix E 5/15) 1,000 mls @ 82 mls/hr IV .BY DURATION [facility] Last Admin: 03/16/19 01:51 Dose: 82 mls/hr Insulin Glargine (Lantus Solostar) 14 units SUBCUT BID [facility] Insulin Human Lispro (Humalog) 0 unit SUBCUT ASDIRECTED [facility]; Protocol Last Admin: 03/16/19 12:02 Dose: 3 units Latanoprost (Xalatan 0.005% Ophth Soln) 0 ml EYEBOTH BEDTIME [facility] Last Admin: 03/15/19 21:48 Dose: 1 drop Levothyroxine Sodium (Synthroid) 100 mcg IVPUSH DAILY [facility] Last Admin: 03/16/19 09:17 Dose: 100 mcg Lorazepam (Ativan) 0.5 mg IVPUSH Q4H PRN PRN Reason: Anxiety Last Admin: 03/15/19 16:43 Dose: 0.5 mg Lorazepam (Ativan) 0.5 mg IVPUSH BID [facility] Last Admin: 03/16/19 09:28 Dose: 0.5 mg Metoprolol Tartrate (Lopressor) 5 mg IV Q6H [facility] Last Admin: 03/16/19 11:59 Dose: 5 mg Naloxone HCl (Narcan) 0.1 mg IV ASDIRECTED PRN PRN Reason: decreased respiratory rate Ondansetron HCl (Zofran) 4 mg IVPUSH Q4H PRN PRN Reason: Nausea/Vomiting Last Admin: 03/09/19 20:57 Dose: 4 mg Pantoprazole Sodium (Protonix Iv) 40 mg IV Q24H [facility] Last Admin: 03/15/19 17:16 Dose: 40 mg Sodium Chloride (Joseph 128 5% Ophth Soln) 0 ml EYEBOTH QID [facility] Last Admin: 03/16/19 09:31 Dose: 2 drop Discontinued Medications Acetylcysteine (Mucomyst 20%) 400 mg INH BIDRT [facility] Last Admin: 03/12/19 07:48 Dose: 200 mg Acetylcysteine (Mucomyst 20%) 200 mg INH BIDRT [facility] Stop: 03/12/19 23:59 Last Admin: 03/12/19 20:44 Dose: 200 mg Bupivacaine HCl (Marcaine 0.5%) Confirm Administered Dose 50 ml .ROUTE .STK-MED ONE Stop: 03/10/19 06:23 Bupivacaine HCl (Marcaine 0.5%) Confirm Administered Dose 50 ml .ROUTE .STK-MED ONE Stop: 03/11/19 07:19 Last Admin: 03/11/19 07:28 Dose: 15 ml Ropivacaine 36 ml/Dexamethasone 8 mg/Epinephrine HCl 0.4 mg/ Sodium Chloride 41.6 ml 0 ml NERVRT ASDIRECTED [facility] Last Admin: 03/08/19 15:05 Dose: 80 syringe Ropivacaine 36 ml/Dexamethasone 8 mg/Epinephrine HCl 0.4 mg/ Sodium Chloride 41.6 ml 0 ml NERVRT ASDIRECTED [facility] Last Admin: 03/11/19 07:41 Dose: 80 syringe Dexamethasone (Dexamethasone) Confirm Administered Dose 4 mg .ROUTE .STK-MED ONE Stop: 03/08/19 12:18 Diphenhydramine HCl (Benadryl) 25 mg IVPUSH Q6H PRN PRN Reason: Itching Diphenhydramine HCl (Benadryl) 25 mg PO Q6H PRN PRN Reason: Itching Fentanyl (Sublimaze) Confirm Administered Dose 250 mcg .ROUTE .STK-MED ONE Stop: 03/08/19 12:19 Furosemide (Lasix) 20 mg IVPUSH ONETIME ONE Stop: 03/09/19 21:56 Last Admin: 03/09/19 22:10 Dose: 20 mg Furosemide (Lasix) Confirm Administered Dose 20 mg .ROUTE .STK-MED ONE Stop: 03/09/19 22:05 Last Admin: 03/09/19 22:10 Dose: Not Given Furosemide (Lasix) 20 mg IVPUSH ONETIME ONE Stop: 03/10/19 06:33 Last Admin: 03/10/19 07:20 Dose: 20 mg Furosemide (Lasix) 20 mg IVPUSH ONETIME ONE Stop: 03/12/19 18:01 Last Admin: 03/12/19 17:43 Dose: 20 mg Furosemide (Lasix) 20 mg IVPUSH ONETIME ONE Stop: 03/12/19 07:31 Last Admin: 03/12/19 07:44 Dose: 20 mg Furosemide (Lasix) 10 mg IVPUSH Q12H [facility] Stop: 03/13/19 21:01 Last Admin: 03/13/19 20:29 Dose: 10 mg Furosemide (Lasix) 20 mg IVPUSH NOW ONE Stop: 03/15/19 11:31 Last Admin: 03/15/19 11:38 Dose: 20 mg Glycopyrrolate (Robinul) Confirm Administered Dose 1 mg .ROUTE .STK-MED ONE Stop: 03/08/19 12:18 Haloperidol Lactate (Haldol) 5 mg IVPUSH BID [facility] Last Admin: 03/09/19 09:06 Dose: 5 mg Heparin Sodium (Porcine) (Heparin Sodium) Confirm Administered Dose 5,000 units .ROUTE .STK-MED ONE Stop: 03/10/19 07:04 Last Admin: 03/10/19 07:57 Dose: Not Given Heparin Sodium (Porcine) (Heparin Lock Flush 100 Units/Ml) Confirm Administered Dose 1,000 units .ROUTE .STK-MED ONE Stop: 03/11/19 07:32 Last Admin: 03/11/19 08:31 Dose: Not Given Sodium Chloride (Normal Saline) 1,000 mls @ 1,000 mls/hr IV ASDIRECTED [facility] Last Admin: 03/08/19 10:02 Dose: 1,000 mls/hr Ampicillin Sodium/Sulbactam (Sodium 1.5 gm/ Sodium Chloride) 50 mls @ 100 mls/ hr IV Q6H [facility] Last Admin: 03/08/19 13:30 Dose: 100 mls/hr Aztreonam 1 gm/ Sodium (Chloride) 50 mls @ 100 mls/hr IV Q12H [facility] Last Admin: 03/08/19 13:30 Dose: 100 mls/hr Lactated Ringer's (Ringers, Lactated) 1,000 mls @ 150 mls/hr IV ASDIRECTED [facility] Last Admin: 03/08/19 13:31 Dose: 150 mls/hr Lactated Ringer's (Ringers, Lactated) Confirm Administered Dose 1,000 mls @ as directed .ROUTE .STK-MED ONE Stop: 03/08/19 15:16 Lactated Ringer's (Ringers, Lactated) 1,000 mls @ 100 mls/hr IV ASDIRECTED [facility] Last Admin: 03/09/19 03:26 Dose: 100 mls/hr Dextrose/Lactated Ringer's (Dextrose 5%-Lactated Ringers) 1,000 mls @ 100 mls/ hr IV ASDIRECTED [facility] Stop: 03/12/19 11:59 Last Admin: 03/11/19 23:35 Dose: 100 mls/hr Ampicillin Sodium/Sulbactam (Sodium 3 gm/ Sodium Chloride) 100 mls @ 200 mls/ hr IV Q6H [facility] Last Admin: 03/13/19 05:19 Dose: 200 mls/hr Aztreonam 1 gm/ Sodium (Chloride) 50 mls @ 100 mls/hr IV Q8H [facility] Last Admin: 03/13/19 04:23 Dose: 100 mls/hr Potassium Chloride 20 meq/Lidocaine HCl 2 ml/ Sodium Chloride 112 mls @ 56 mls/ hr IV Q2H [facility] Stop: 03/09/19 15:59 Last Admin: 03/09/19 17:30 Dose: 56 mls/hr Lactated Ringer's (Ringers, Lactated) 750 mls @ 750 mls/hr IV BOLUS ONE Stop: 03/09/19 16:25 Last Admin: 03/09/19 15:53 Dose: 750 mls/hr Lactated Ringer's (Ringers, Lactated) 750 mls @ 999 mls/hr IV BOLUS ONE Stop: 03/09/19 21:15 Last Admin: 03/09/19 21:08 Dose: 999 mls/hr Linezolid 600 mg/ Premix 300 mls @ 300 mls/hr IV Q12H [facility] Last Admin: 03/11/19 21:53 Dose: 300 mls/hr Potassium Chloride 20 meq/Lidocaine HCl 2 ml/ Sodium Chloride 112 mls @ 56 mls/ hr IV Q2H [facility] Stop: 03/10/19 16:29 Last Admin: 03/10/19 16:07 Dose: 56 mls/hr Potassium Chloride 20 meq/ (Premix) 0 mls @ 50 mls/hr IV Q2H [facility] Stop: 03/11/19 07:28 Last Admin: 03/11/19 07:32 Dose: 50 mls/hr Magnesium Sulfate 2 gm/ Premix 50 mls @ 25 mls/hr IV Q6H [facility] Last Admin: 03/12/19 04:27 Dose: 25 mls/hr Potassium Phosphate 20 mmole/ (Sodium Chloride) 256.6667 mls @ 85 mls/hr IV Q3H [facility] Stop: 03/11/19 17:59 Last Admin: 03/11/19 14:42 Dose: 85 mls/hr Multivitamins/Minerals 10 ml/Chromium/Copper/Manganese/Seleni/Zn 1 ml/ Amino Ac/ Electrol/Dextrose/Calcium 1,011 mls @ 82 mls/hr IV .BY DURATION [facility] Last Admin: 03/13/19 12:34 Dose: 82 mls/hr Amino Ac/Electrol/Dextrose/Calcium (Clinimix E 12/08) 1,000 mls @ 82 mls/hr IV .BY DURATION [facility] Last Admin: 03/14/19 01:20 Dose: 82 mls/hr Potassium Phosphate 20 mmole/ (Sodium Chloride) 256.6667 mls @ 85.556 mls/hr IV Q3H [facility] Stop: 03/12/19 16:59 Last Admin: 03/12/19 14:49 Dose: 85.556 mls/hr Potassium Chloride 20 meq/ (Premix) 100 mls @ 50 mls/hr IV ONETIME ONE Stop: 03/13/19 10:59 Last Admin: 03/13/19 09:29 Dose: 50 mls/hr Potassium Phosphate 30 mmole/ (Sodium Chloride) 110 mls @ 30 mls/hr IV ONETIME ONE Stop: 03/13/19 14:39 Last Admin: 03/13/19 12:14 Dose: 30 mls/hr Magnesium Sulfate 2 gm/ Premix 50 mls @ 25 mls/hr IV Q6H [facility] Stop: 03/16/19 03:59 Last Admin: 03/16/19 01:59 Dose: 25 mls/hr Azithromycin 250 mg/ Sodium (Chloride) 150 mls @ 150 mls/hr IV Q12H [facility] Insulin Glargine (Lantus Solostar) 10 units SUBCUT BID [facility] Last Admin: 03/16/19 09:27 Dose: 10 unit Insulin Human Lispro (Humalog) 0 unit SUBCUT Q6H PRN; Protocol PRN Reason: MEDIUM CORRECTIONAL DOSING Last Admin: 03/14/19 17:42 Dose: 7 units Insulin Human Lispro (Humalog) 15 unit SUBCUT ONETIME ONE Stop: 03/14/19 12:05 Last Admin: 03/14/19 12:10 Dose: 15 units Insulin Human Lispro (Humalog) 0 unit SUBCUT ONETIME ONE Stop: 03/15/19 00:16 Last Admin: 03/15/19 00:25 Dose: 12 units Lidocaine HCl (Xylocaine-Mpf 1%) 5 ml INJECT ONETIME ONE Stop: 03/11/19 05:30 Last Admin: 03/11/19 05:39 Dose: 2 ml Lidocaine/Epinephrine (Xylocaine 1% With Epinephrine 1:100,000) Confirm Administered Dose 50 ml .ROUTE .STK-MED ONE Stop: 03/10/19 06:23 Lidocaine/Epinephrine (Xylocaine 1% With Epinephrine 1:100,000) Confirm Administered Dose 50 ml .ROUTE .STK-MED ONE Stop: 03/11/19 07:19 Last Admin: 03/11/19 07:28 Dose: 15 ml Linezolid (Zyvox) 600 mg IRR .STK-MED ONE Stop: 03/11/19 07:39 Last Admin: 03/11/19 07:38 Dose: 600 mg Lorazepam (Ativan) 0.5 mg IVPUSH BID [facility] Last Admin: 03/09/19 09:09 Dose: 0.5 mg Lorazepam (Ativan) 0.25 mg IVPUSH BID [facility] Last Admin: 03/10/19 09:09 Dose: 0.25 mg Meropenem (Merrem) Confirm Administered Dose 500 mg .ROUTE .STK-MED ONE Stop: 03/08/19 12:05 Last Admin: 03/08/19 14:00 Dose: 500 mg Meropenem (Merrem) Confirm Administered Dose 500 mg .ROUTE .STK-MED ONE Stop: 03/10/19 06:23 Meropenem (Merrem) Confirm Administered Dose 500 mg .ROUTE .STK-MED ONE Stop: 03/11/19 06:45 Last Admin: 03/11/19 07:38 Dose: 500 mg Neostigmine Methylsulfate (Neostigmine) Confirm Administered Dose 5 mg .ROUTE .STK-MED ONE Stop: 03/08/19 12:18 Ondansetron HCl (Zofran) Confirm Administered Dose 4 mg .ROUTE .STK-MED ONE Stop: 03/08/19 12:18 Ondansetron HCl (Zofran) 4 mg IVPUSH Q6H PRN PRN Reason: Nausea/Vomiting Propofol (Diprivan 20 Ml) Confirm Administered Dose 200 mg .ROUTE .STK-MED ONE Stop: 03/08/19 12:18 Propofol (Diprivan 20 Ml) Confirm Administered Dose 200 mg .ROUTE .STK-MED ONE Stop: 03/10/19 07:33 Rocuronium Dyer (Zemuron) Confirm Administered Dose 50 mg .ROUTE .STK-MED ONE Stop: 03/08/19 12:18 Succinylcholine Chloride (Quelicin) Confirm Administered Dose 200 mg .ROUTE .STK -MED ONE Stop: 03/08/19 12:18 Succinylcholine Chloride (Quelicin) Confirm Administered Dose 200 mg .ROUTE .STK -MED ONE Stop: 03/10/19 07:33 - Exam Quality Assessment: Supplemental Oxygen, Central Line/PICC, Urine Catheter, DVT Prophylaxis General: Alert, Cooperative, Mild Distress Lungs: Normal Respiratory Effort, Decreased Breath Sounds, Rhonchi. No: Crackles, Rales, Wheezing Cardiovascular: Regular Rate, Regular Rhythm, No Murmurs GI/Abdominal Exam: Soft, No Organomegaly, Tender. No: Distended, Guarding, Rigid, Rebound Extremities: Non-Tender, No Pedal Edema - Problem List Review Problem List Initiated/Reviewed/Updated: Yes - My Orders Last 24 Hours: My Active Orders 03/16/19 09:00 Communication Order [RC] DAILY 03/16/19 13:12 Consult to Occupational Therapy [OT Evaluation and Treatment] [CONS] Routine PT Evaluation and Treatment [CONS] Routine 03/16/19 13:13 Furosemide [Lasix] 20 mg IVPUSH NOW ONE 03/16/19 21:00 Insulin Glarg,Human.Rec.Analog [LantUS Solostar] 14 units SUBCUT BID - Plan Plan:: ASSESSMENT AND PLAN - Small bowel obstruction with pneumatosis - status post emergent laparotomy with small bowel resection and right colectomy 03/08. NG output decreased over last 24 hours, NG tube removed this morning. -Postoperative care per surgical team -He is receiving TPN -Pain control Acute respiratory failure with hypoxia - 2/2 schizophrenia and weakness. Stable thus far status post extubation -Furosemide 20 mg IV today -Noninvasive positive pressure ventilation -Antibiotic coverage with linezolid -Vigorous pulmonary toilet Type 2 diabetes mellitus-glucose levels improved over the last 48 hours but still remain elevated above desired range -Continue glucometers every 6 hours -Regular insulin 15 units added to each liter of TPN -High dose sliding scale Humalog -Lantus 14 units subcutaneous twice daily Hypokalemia - potassium level improved with supplementation. -Recheck in the morning Severe schizophrenia - patient is very debilitated because of his psychiatric illness. Psych illness has contributed to resp decline and will be a very large barrier to extubation. -Continue low-dose Haldol -Continue regular dose Depakote -low dose lorazepam -Restart oral medications when able Acute kidney injury - due to poor intake and small bowel obstruction. Creatinine back to baseline. -Continue to closely monitor urine output and renal function Maintenance issues - - DVT prophylaxis - mechanical - GI prophylaxis - IV PPI - Nutrition - nothing by mouth, currently receiving TPN for nutritional support - Rodriguez catheter - placed for strict intake and output monitoring with a critical patient Disposition - anticipate discharge home versus more likely the skilled nursing
[2019-03-16] MEDS ORDERED: Furosemide 20 MG/2 ML VIAL IVPUSH ONE (13:30)
[2019-03-16] MEDS: HYDROmorphone/Normal Saline 15 MG/30 ML PCA IV PRN (16:43)
[2019-03-16] MEDS: Pantoprazole 40 MG Vial IV SCH (17:43)
[2019-03-16] MEDS: Latanoprost 0.005% Ophth Soln 2.5 ML Bottle EYEBOTH SCH (20:59)
[2019-03-17] MEDS: 1: AA 5%/Calcium/D15W/Lytes 1,000 ML with MVI, Adult with Vitamin K 10 ML, Chromium/Copp IV SCH ×6 (02:09→14:26)
[2019-03-17] MEDS: Metoprolol Tartrate 5 MG/5 ML SDV IV SCH ×5 (06:10→23:41)
[2019-03-17] MEDS: Sodium Chloride 5% Ophth Soln 15 ML Bottle EYEBOTH SCH ×4 (06:10→22:13)
[2019-03-17] MEDS: Insulin Lispro 100 Unit/ML 3 ML KwikPen SUBCUT SCH ×3 (06:22→23:50)
[2019-03-17] MEDS: Albuterol/Ipratropium 3.0-0.5 MG/3 ML Neb Soln INH SCH ×4 (07:25→20:34)
--- NOTE | 2019-03-17 08:22 | OR ---
DATE OF PROCEDURE: 03/11/2019 SURGEON: Haider Monae MD PREOPERATIVE DIAGNOSIS: Indication for central venous access. POSTOPERATIVE DIAGNOSIS: Indication for central venous access. OPERATIVE PROCEDURE: Insertion of triple-lumen venous catheter via right subclavian vein approach. ANESTHESIA: Local. INDICATION FOR PROCEDURE: The patient is undergoing ongoing critical care management and, at this point, has very limited peripheral IV access, with the nursing having to resort to using some IVs in his keane over the last 24 hours. Given this, a central line needs to be placed, as well as to facilitate giving him some TPN during the period where he remains n.p.o. Potential risks of the procedure were reviewed with the patient's guardian, and she wishes to proceed. DETAILS OF PROCEDURE: The patient was placed in a supine position in the intensive care unit. The upper chest and neck areas were prepped and draped, and the left subclavian area then anesthetized with 1% lidocaine. The subclavian vein was cannulated. A guidewire was manipulated from that point into the superior vena cava. Over the guidewire, a triple-lumen catheter was placed. The catheter was then flushed with heparinized saline, after aspiration of the blood and air within the catheter, and sutured to skin with some 3-0 silk stitch. Dressing was applied. Subsequent chest x-ray showed no evident complications and the catheter tip in the area of superior vena cava and right atrial junction. Haider Monae MD /[id number]
[2019-03-17] MEDS: LORazepam 2 MG/ML SDV IVPUSH SCH ×2 (08:23→20:35)
[2019-03-17] MEDS: Haloperidol Lactate 5 MG/ML SDV IVPUSH SCH ×2 (08:27→20:35)
[2019-03-17] MEDS: Bisacodyl 5 MG Tab PO SCH ×3 (08:36→20:35)
[2019-03-17] MEDS: Docusate Sodium 100 MG Cap PO SCH ×3 (08:36→20:35)
[2019-03-17] MEDS: Levothyroxine 100 MCG Vial IVPUSH SCH (08:37)
[2019-03-17] MEDS: Insulin Glargine,Human Rec. Analog 100 Units/ML 3 ML Pen SUBCUT SCH ×2 (08:48→20:43)
[2019-03-17] MEDS: Linezolid 600 MG in Premix Bag 1 BAG IV SCH ×2 (09:07→22:12)
--- NOTE | 2019-03-17 09:14 | PCM.PN ---
- General Info Date of Service: 03/17/19 Subjective Update: Mr. Perez continues to show slow improvement over the last few days. Respiratory status overall has been stable, continues to use noninvasive positive pressure ventilation while sleeping. Continues to require fairly aggressive pulmonary toilet with frequent suctioning. Remains confused but is more alert. Because of confusion unable to provide meaningful history concerning symptoms or review of systems. - Patient Data Vitals - Most Recent: Last Vital Signs Temp 99.3 F 03/17/19 07:00 Pulse 106 H 03/17/19 07:26 Resp 15 03/17/19 07:00 BP 145/64 H 03/17/19 07:00 Pulse Ox 97 03/17/19 07:26 Weight - Most Recent: 167 lb 11.2 oz I&O - Last 24 Hours: Intake & Output 03/16/19 03/17/19 03/17/19 22:59 06:59 14:59 Intake Total 1342 1428 Output Total 1060 780 Balance 282 648 Lab Results Last 24 Hours: Laboratory Results - last 24 hr 03/17/19 03/17/19 03/17/19 Range/Units 04:00 04:15 04:15 WBC 13.9 H (4.5-11.0) K/uL RBC 3.38 L (4.30-5.90) M/uL Hgb 9.6 L (12.0-15.0) g/dL Hct 31.1 L (40.0-54.0) % MCV 92 (80-98) fL MCH 28 (27-31) pg MCHC 31 L (32-36) % Plt Count 233 (150-400) K/uL Puncture Site Lt radial ABG pH 7.423 (7.350-7.450) ABG pCO2 43.3 H (35.0-42.0) mmHg ABG pO2 116.0 H (75.0-100.0) mmHg ABG HCO3 27.7 H (22.0-26.0) mmol/L ABG Total CO2 25.6 (23.0-27.0) mmol/L ABG O2 Saturation 98.0 (95.0-98.0) % ABG O2 Content 13.9 L (15.0-23.0) %vol ABG Base Excess 3.4 mm/L ABG Hemoglobin 10.2 L (13.5-18.0) g/dL ABG Oxyhemoglobin 95.9 % ABG Carboxyhemoglobin 1.2 (0.0-1.6) % ABG Methemoglobin 0.9 % Andrew Test Passed O2 Delivery Device Bipap Oxygen Flow Rate L Sodium 139 L (140-148) mmol/L Potassium 4.5 (3.6-5.2) mmol/L Chloride 103 (100-108) mmol/L Carbon Dioxide 30 (21-32) mmol/L Anion Gap 10.5 (5.0-14.0) mmol/L BUN 28 H (7-18) mg/dL Creatinine 1.1 (0.8-1.3) mg/dL Est Cr Clr Drug Dosing 61.29 mL/min Estimated GFR (MDRD) > 60 (>60) Glucose 196 H (74-106) mg/dL Calcium 8.0 L (8.5-10.1) mg/dL Phosphorus 5.0 H (2.5-4.9) mg/dL Magnesium 2.0 (1.8-2.4) mg/dL Total Bilirubin 0.6 (0.2-1.0) mg/dL AST 26 (15-37) U/L ALT 33 (12-78) U/L Alkaline Phosphatase 117 H (46-116) U/L Total Protein 5.3 L (6.4-8.2) g/dL Albumin 1.6 L (3.4-5.0) g/dL Globulin 3.7 H (2.3-3.5) g/dL Albumin/Globulin Ratio 0.4 L (1.2-2.2) Med Orders - Current: Current Medications Albuterol (Proventil Neb Soln) 2.5 mg NEB Q4H PRN PRN Reason: Shortness Of Breath/wheezing Last Admin: 03/10/19 00:24 Dose: 2.5 mg Albuterol/Ipratropium (Duoneb 3.0-0.5 Mg/3 Ml) 3 ml INH QIDRT [facility] Last Admin: 03/17/19 07:25 Dose: 3 ml Bisacodyl (Dulcolax) 10 mg PO BID [facility] Last Admin: 03/17/19 08:36 Dose: 10 mg Dextrose (Glutose 15) 15 gm PO ASDIRECTED PRN PRN Reason: HYPOGLYCEMIA Dextrose/Water (Dextrose 50% In Water) 50 ml IVPUSH ASDIRECTED PRN PRN Reason: HYPOGLYCEMIA Diphenhydramine HCl (Benadryl) 25 mg IVPUSH Q4H PRN PRN Reason: Itching Docusate Sodium (Colace) 100 mg PO BID [facility] Last Admin: 03/17/19 08:36 Dose: 100 mg Furosemide (Lasix) 20 mg IVPUSH NOW ONE Stop: 03/17/19 09:07 Glucagon (Glucagen) 1 mg IM ASDIRECTED PRN PRN Reason: HYPOGLYCEMIA Haloperidol Lactate (Haldol) 2 mg IVPUSH Q4H PRN PRN Reason: Agitation Last Admin: 03/15/19 16:10 Dose: 2 mg Haloperidol Lactate (Haldol) 2.5 mg IVPUSH BID [facility] Last Admin: 03/17/19 08:27 Dose: 2.5 mg Heparin Sodium (Porcine) (Heparin Lock Flush 100 Units/Ml) 500 units FLUSH ASDIRECTED PRN PRN Reason: Keep Vein Open Last Admin: 03/11/19 08:30 Dose: 500 units Hydromorphone HCl (Dilaudid Oral Surgery Technician 15 Mg In Ns 30 Ml) 0 mg IV ASDIRECTED PRN; Protocol PRN Reason: PAIN Last Admin: 03/16/19 16:43 Dose: 15 mg Valproic Acid 500 mg/ Sodium (Chloride) 55 mls @ 55 mls/hr IV Q8H [facility] Last Admin: 03/17/19 04:56 Dose: 55 mls/hr Sodium Chloride (Normal Saline) 1,000 mls @ 20 mls/hr IV ASDIRECTED [facility] Last Admin: 03/13/19 22:58 Dose: 20 mls/hr Linezolid 600 mg/ Premix 300 mls @ 300 mls/hr IV Q12H [facility] Last Admin: 03/16/19 21:52 Dose: 300 mls/hr Azithromycin 250 mg/ Sodium (Chloride) 150 mls @ 150 mls/hr IV Q24H [facility] Last Admin: 03/16/19 12:04 Dose: 150 mls/hr Multivitamins/Minerals 10 ml/Chromium/Copper/Manganese/Seleni/Zn 1 ml/ Amino Ac/ Electrol/Dextrose/Calcium 1,011 mls @ 82 mls/hr IV .BY DURATION [facility] Last Admin: 03/16/19 14:06 Dose: 82 mls/hr Amino Ac/Electrol/Dextrose/Calcium (Clinimix E 5/15) 1,000 mls @ 82 mls/hr IV .BY DURATION [facility] Last Admin: 03/17/19 02:09 Dose: 82 mls/hr Insulin Glargine (Lantus Solostar) 14 units SUBCUT BID [facility] Last Admin: 03/16/19 21:00 Dose: 14 units Insulin Human Lispro (Humalog) 0 unit SUBCUT ASDIRECTED [facility]; Protocol Last Admin: 03/17/19 06:22 Dose: 6 units Latanoprost (Xalatan 0.005% Ophth Soln) 0 ml EYEBOTH BEDTIME [facility] Last Admin: 03/16/19 20:59 Dose: 2 drop Levothyroxine Sodium (Synthroid) 100 mcg IVPUSH DAILY [facility] Last Admin: 03/17/19 08:37 Dose: 100 mcg Lorazepam (Ativan) 0.5 mg IVPUSH Q4H PRN PRN Reason: Anxiety Last Admin: 03/15/19 16:43 Dose: 0.5 mg Lorazepam (Ativan) 0.5 mg IVPUSH BID [facility] Last Admin: 03/17/19 08:23 Dose: 0.5 mg Metoprolol Tartrate (Lopressor) 5 mg IV Q6H [facility] Last Admin: 03/17/19 06:10 Dose: 5 mg Naloxone HCl (Narcan) 0.1 mg IV ASDIRECTED PRN PRN Reason: decreased respiratory rate Ondansetron HCl (Zofran) 4 mg IVPUSH Q4H PRN PRN Reason: Nausea/Vomiting Last Admin: 03/09/19 20:57 Dose: 4 mg Pantoprazole Sodium (Protonix Iv) 40 mg IV Q24H [facility] Last Admin: 03/16/19 17:43 Dose: 40 mg Sodium Chloride (Joseph 128 5% Ophth Soln) 0 ml EYEBOTH QID [facility] Last Admin: 03/17/19 06:10 Dose: 1 drop Discontinued Medications Acetylcysteine (Mucomyst 20%) 400 mg INH BIDRT [facility] Last Admin: 03/12/19 07:48 Dose: 200 mg Acetylcysteine (Mucomyst 20%) 200 mg INH BIDRT [facility] Stop: 03/12/19 23:59 Last Admin: 03/12/19 20:44 Dose: 200 mg Bupivacaine HCl (Marcaine 0.5%) Confirm Administered Dose 50 ml .ROUTE .STK-MED ONE Stop: 03/10/19 06:23 Bupivacaine HCl (Marcaine 0.5%) Confirm Administered Dose 50 ml .ROUTE .STK-MED ONE Stop: 03/11/19 07:19 Last Admin: 03/11/19 07:28 Dose: 15 ml Ropivacaine 36 ml/Dexamethasone 8 mg/Epinephrine HCl 0.4 mg/ Sodium Chloride 41.6 ml 0 ml NERVRT ASDIRECTED [facility] Last Admin: 03/08/19 15:05 Dose: 80 syringe Ropivacaine 36 ml/Dexamethasone 8 mg/Epinephrine HCl 0.4 mg/ Sodium Chloride 41.6 ml 0 ml NERVRT ASDIRECTED [facility] Last Admin: 03/11/19 07:41 Dose: 80 syringe Dexamethasone (Dexamethasone) Confirm Administered Dose 4 mg .ROUTE .STK-MED ONE Stop: 03/08/19 12:18 Diphenhydramine HCl (Benadryl) 25 mg IVPUSH Q6H PRN PRN Reason: Itching Diphenhydramine HCl (Benadryl) 25 mg PO Q6H PRN PRN Reason: Itching Fentanyl (Sublimaze) Confirm Administered Dose 250 mcg .ROUTE .STK-MED ONE Stop: 03/08/19 12:19 Furosemide (Lasix) 20 mg IVPUSH ONETIME ONE Stop: 03/09/19 21:56 Last Admin: 03/09/19 22:10 Dose: 20 mg Furosemide (Lasix) Confirm Administered Dose 20 mg .ROUTE .STK-MED ONE Stop: 03/09/19 22:05 Last Admin: 03/09/19 22:10 Dose: Not Given Furosemide (Lasix) 20 mg IVPUSH ONETIME ONE Stop: 03/10/19 06:33 Last Admin: 03/10/19 07:20 Dose: 20 mg Furosemide (Lasix) 20 mg IVPUSH ONETIME ONE Stop: 03/12/19 18:01 Last Admin: 03/12/19 17:43 Dose: 20 mg Furosemide (Lasix) 20 mg IVPUSH ONETIME ONE Stop: 03/12/19 07:31 Last Admin: 03/12/19 07:44 Dose: 20 mg Furosemide (Lasix) 10 mg IVPUSH Q12H [facility] Stop: 03/13/19 21:01 Last Admin: 03/13/19 20:29 Dose: 10 mg Furosemide (Lasix) 20 mg IVPUSH NOW ONE Stop: 03/15/19 11:31 Last Admin: 03/15/19 11:38 Dose: 20 mg Furosemide (Lasix) 20 mg IVPUSH ONETIME ONE Stop: 03/16/19 13:31 Last Admin: 03/16/19 14:18 Dose: 20 mg Glycopyrrolate (Robinul) Confirm Administered Dose 1 mg .ROUTE .STK-MED ONE Stop: 03/08/19 12:18 Haloperidol Lactate (Haldol) 5 mg IVPUSH BID [facility] Last Admin: 03/09/19 09:06 Dose: 5 mg Heparin Sodium (Porcine) (Heparin Sodium) Confirm Administered Dose 5,000 units .ROUTE .STK-MED ONE Stop: 03/10/19 07:04 Last Admin: 03/10/19 07:57 Dose: Not Given Heparin Sodium (Porcine) (Heparin Lock Flush 100 Units/Ml) Confirm Administered Dose 1,000 units .ROUTE .STK-MED ONE Stop: 03/11/19 07:32 Last Admin: 03/11/19 08:31 Dose: Not Given Sodium Chloride (Normal Saline) 1,000 mls @ 1,000 mls/hr IV ASDIRECTED [facility] Last Admin: 03/08/19 10:02 Dose: 1,000 mls/hr Ampicillin Sodium/Sulbactam (Sodium 1.5 gm/ Sodium Chloride) 50 mls @ 100 mls/ hr IV Q6H [facility] Last Admin: 03/08/19 13:30 Dose: 100 mls/hr Aztreonam 1 gm/ Sodium (Chloride) 50 mls @ 100 mls/hr IV Q12H [facility] Last Admin: 03/08/19 13:30 Dose: 100 mls/hr Lactated Ringer's (Ringers, Lactated) 1,000 mls @ 150 mls/hr IV ASDIRECTED [facility] Last Admin: 03/08/19 13:31 Dose: 150 mls/hr Lactated Ringer's (Ringers, Lactated) Confirm Administered Dose 1,000 mls @ as directed .ROUTE .STK-MED ONE Stop: 03/08/19 15:16 Lactated Ringer's (Ringers, Lactated) 1,000 mls @ 100 mls/hr IV ASDIRECTED [facility] Last Admin: 03/09/19 03:26 Dose: 100 mls/hr Dextrose/Lactated Ringer's (Dextrose 5%-Lactated Ringers) 1,000 mls @ 100 mls/ hr IV ASDIRECTED [facility] Stop: 03/12/19 11:59 Last Admin: 03/11/19 23:35 Dose: 100 mls/hr Ampicillin Sodium/Sulbactam (Sodium 3 gm/ Sodium Chloride) 100 mls @ 200 mls/ hr IV Q6H [facility] Last Admin: 03/13/19 05:19 Dose: 200 mls/hr Aztreonam 1 gm/ Sodium (Chloride) 50 mls @ 100 mls/hr IV Q8H [facility] Last Admin: 03/13/19 04:23 Dose: 100 mls/hr Potassium Chloride 20 meq/Lidocaine HCl 2 ml/ Sodium Chloride 112 mls @ 56 mls/ hr IV Q2H [facility] Stop: 03/09/19 15:59 Last Admin: 03/09/19 17:30 Dose: 56 mls/hr Lactated Ringer's (Ringers, Lactated) 750 mls @ 750 mls/hr IV BOLUS ONE Stop: 03/09/19 16:25 Last Admin: 03/09/19 15:53 Dose: 750 mls/hr Lactated Ringer's (Ringers, Lactated) 750 mls @ 999 mls/hr IV BOLUS ONE Stop: 03/09/19 21:15 Last Admin: 03/09/19 21:08 Dose: 999 mls/hr Heparin Sodium (Porcine) 5,000 (units/ Sodium Chloride) 501 mls @ 5 mls/hr IV ASDIRECTED [facility] Last Admin: 03/12/19 13:58 Dose: 5 mls/hr Propofol (Diprivan 100 Ml) 100 mls @ 2.191 mls/hr IV TITRATE [facility]; Protocol Last Titration: 03/15/19 07:18 Dose: 0 mcg/kg/min, 0 mls/hr Linezolid 600 mg/ Premix 300 mls @ 300 mls/hr IV Q12H [facility] Last Admin: 03/11/19 21:53 Dose: 300 mls/hr Potassium Chloride 20 meq/Lidocaine HCl 2 ml/ Sodium Chloride 112 mls @ 56 mls/ hr IV Q2H [facility] Stop: 03/10/19 16:29 Last Admin: 03/10/19 16:07 Dose: 56 mls/hr Potassium Chloride 20 meq/ (Premix) 0 mls @ 50 mls/hr IV Q2H [facility] Stop: 03/11/19 07:28 Last Admin: 03/11/19 07:32 Dose: 50 mls/hr Magnesium Sulfate 2 gm/ Premix 50 mls @ 25 mls/hr IV Q6H [facility] Last Admin: 03/12/19 04:27 Dose: 25 mls/hr Potassium Phosphate 20 mmole/ (Sodium Chloride) 256.6667 mls @ 85 mls/hr IV Q3H [facility] Stop: 03/11/19 17:59 Last Admin: 03/11/19 14:42 Dose: 85 mls/hr Multivitamins/Minerals 10 ml/Chromium/Copper/Manganese/Seleni/Zn 1 ml/ Amino Ac/ Electrol/Dextrose/Calcium 1,011 mls @ 82 mls/hr IV .BY DURATION [facility] Last Admin: 03/13/19 12:34 Dose: 82 mls/hr Amino Ac/Electrol/Dextrose/Calcium (Clinimix E 12/08) 1,000 mls @ 82 mls/hr IV .BY DURATION [facility] Last Admin: 03/14/19 01:20 Dose: 82 mls/hr Potassium Phosphate 20 mmole/ (Sodium Chloride) 256.6667 mls @ 85.556 mls/hr IV Q3H [facility] Stop: 03/12/19 16:59 Last Admin: 03/12/19 14:49 Dose: 85.556 mls/hr Potassium Chloride 20 meq/ (Premix) 100 mls @ 50 mls/hr IV ONETIME ONE Stop: 03/13/19 10:59 Last Admin: 03/13/19 09:29 Dose: 50 mls/hr Potassium Phosphate 30 mmole/ (Sodium Chloride) 110 mls @ 30 mls/hr IV ONETIME ONE Stop: 03/13/19 14:39 Last Admin: 03/13/19 12:14 Dose: 30 mls/hr Magnesium Sulfate 2 gm/ Premix 50 mls @ 25 mls/hr IV Q6H [facility] Stop: 03/16/19 03:59 Last Admin: 03/16/19 01:59 Dose: 25 mls/hr Azithromycin 250 mg/ Sodium (Chloride) 150 mls @ 150 mls/hr IV Q12H [facility] Insulin Glargine (Lantus Solostar) 10 units SUBCUT BID [facility] Last Admin: 03/16/19 09:27 Dose: 10 unit Insulin Human Lispro (Humalog) 0 unit SUBCUT Q6H PRN; Protocol PRN Reason: MEDIUM CORRECTIONAL DOSING Last Admin: 03/14/19 17:42 Dose: 7 units Insulin Human Lispro (Humalog) 15 unit SUBCUT ONETIME ONE Stop: 03/14/19 12:05 Last Admin: 03/14/19 12:10 Dose: 15 units Insulin Human Lispro (Humalog) 0 unit SUBCUT ONETIME ONE Stop: 03/15/19 00:16 Last Admin: 03/15/19 00:25 Dose: 12 units Lidocaine HCl (Xylocaine-Mpf 1%) 5 ml INJECT ONETIME ONE Stop: 03/11/19 05:30 Last Admin: 03/11/19 05:39 Dose: 2 ml Lidocaine/Epinephrine (Xylocaine 1% With Epinephrine 1:100,000) Confirm Administered Dose 50 ml .ROUTE .STK-MED ONE Stop: 03/10/19 06:23 Lidocaine/Epinephrine (Xylocaine 1% With Epinephrine 1:100,000) Confirm Administered Dose 50 ml .ROUTE .STK-MED ONE Stop: 03/11/19 07:19 Last Admin: 03/11/19 07:28 Dose: 15 ml Linezolid (Zyvox) 600 mg IRR .STK-MED ONE Stop: 03/11/19 07:39 Last Admin: 03/11/19 07:38 Dose: 600 mg Lorazepam (Ativan) 0.5 mg IVPUSH BID [facility] Last Admin: 03/09/19 09:09 Dose: 0.5 mg Lorazepam (Ativan) 0.25 mg IVPUSH BID [facility] Last Admin: 03/10/19 09:09 Dose: 0.25 mg Meropenem (Merrem) Confirm Administered Dose 500 mg .ROUTE .STK-MED ONE Stop: 03/08/19 12:05 Last Admin: 03/08/19 14:00 Dose: 500 mg Meropenem (Merrem) Confirm Administered Dose 500 mg .ROUTE .STK-MED ONE Stop: 03/10/19 06:23 Meropenem (Merrem) Confirm Administered Dose 500 mg .ROUTE .STK-MED ONE Stop: 03/11/19 06:45 Last Admin: 03/11/19 07:38 Dose: 500 mg Neostigmine Methylsulfate (Neostigmine) Confirm Administered Dose 5 mg .ROUTE .STK-MED ONE Stop: 03/08/19 12:18 Ondansetron HCl (Zofran) Confirm Administered Dose 4 mg .ROUTE .STK-MED ONE Stop: 03/08/19 12:18 Ondansetron HCl (Zofran) 4 mg IVPUSH Q6H PRN PRN Reason: Nausea/Vomiting Propofol (Diprivan 20 Ml) Confirm Administered Dose 200 mg .ROUTE .STK-MED ONE Stop: 03/08/19 12:18 Propofol (Diprivan 20 Ml) Confirm Administered Dose 200 mg .ROUTE .STK-MED ONE Stop: 03/10/19 07:33 Rocuronium Baker (Zemuron) Confirm Administered Dose 50 mg .ROUTE .STK-MED ONE Stop: 03/08/19 12:18 Succinylcholine Chloride (Quelicin) Confirm Administered Dose 200 mg .ROUTE .STK -MED ONE Stop: 03/08/19 12:18 Succinylcholine Chloride (Quelicin) Confirm Administered Dose 200 mg .ROUTE .STK -MED ONE Stop: 03/10/19 07:33 - Exam Quality Assessment: Supplemental Oxygen, Central Line/PICC, Urine Catheter, DVT Prophylaxis General: Alert, Cooperative, Mild Distress. No: Oriented Lungs: Clear to Auscultation, Normal Respiratory Effort Cardiovascular: Regular Rate, Regular Rhythm, No Murmurs GI/Abdominal Exam: Soft, Non-Tender, No Organomegaly, No Distention Extremities: Non-Tender, No Pedal Edema - Problem List Review Problem List Initiated/Reviewed/Updated: Yes - My Orders Last 24 Hours: My Active Orders 03/16/19 09:00 Communication Order [RC] DAILY 03/16/19 13:12 Consult to Occupational Therapy [OT Evaluation and Treatment] [CONS] Routine PT Evaluation and Treatment [CONS] Routine 03/16/19 21:00 Insulin Glarg,Human.Rec.Analog [LantUS Solostar] 14 units SUBCUT BID 03/17/19 09:06 Furosemide [Lasix] 20 mg IVPUSH NOW ONE - Plan Plan:: ASSESSMENT AND PLAN - Small bowel obstruction with pneumatosis - status post emergent laparotomy with small bowel resection and right colectomy 03/08. NG output decreased over last 24 hours, NG tube removed this morning. -Postoperative care per surgical team -He is receiving TPN -Pain control Acute respiratory failure with hypoxia - stable respiratory status, continues to require frequent suctioning -Furosemide 20 mg IV today -Noninvasive positive pressure ventilation -Antibiotic coverage with linezolid -Vigorous pulmonary toilet Type 2 diabetes mellitus-glucose levels improved over the last 48 hours but still remain elevated above desired range -Continue glucometers every 6 hours -Regular insulin 15 units added to each liter of TPN -High dose sliding scale Humalog -Lantus 18 units subcutaneous twice daily Hypokalemia - potassium level improved with supplementation. -Recheck in the morning Severe schizophrenia - patient is very debilitated because of his psychiatric illness. -Continue low-dose Haldol -Continue regular dose Depakote -low dose lorazepam -Restart oral medications when able Acute kidney injury - resolved -Continue to closely monitor urine output and renal function Maintenance issues - - DVT prophylaxis - mechanical - GI prophylaxis - IV PPI - Nutrition - nothing by mouth, currently receiving TPN for nutritional support - Rodriguez catheter - placed for strict intake and output monitoring with a critical patient Disposition - anticipate discharge home versus more likely the retirement
[2019-03-17] MEDS ORDERED: Furosemide 20 MG/2 ML VIAL IVPUSH ONE (09:15)
--- NOTE | 2019-03-17 12:25 | PN ---
DATE OF SERVICE: 03/17/2019 Temperature is in the 98 to 99 range. Vital signs are otherwise stable. He is running slightly tachycardic around 100 to 110. He continues to do satisfactorily on the BiPAP and is much more alert and is requiring some suctioning for pulmonary toilet, but overall quite a bit better in terms of his respiratory status. The abdomen is mildly distended. No flatus or bowel movement as of yet noted. He is receiving daily Zithromax to augment GI tract motility and we will add some Dulcolax oral tablets to the equation as well. Otherwise, continue the TPN and supportive care along with Dr. Jaffe. Haider Monae MD /[id number]
[2019-03-17] MEDS ORDERED: Bisacodyl 5 MG Tab PO ONE (16:15)
[2019-03-17] MEDS ORDERED: Bisacodyl 10 MG Supp RECTAL ONE (17:00)
[2019-03-17] MEDS: Pantoprazole 40 MG Vial IV SCH (17:13)
[2019-03-17] MEDS: diphenhydrAMINE 50 MG/ML SDV IVPUSH PRN (19:46)
[2019-03-17] MEDS: Latanoprost 0.005% Ophth Soln 2.5 ML Bottle EYEBOTH SCH (20:34)
[2019-03-17] MEDS: LORazepam 2 MG/ML SDV IVPUSH PRN (23:41)
[2019-03-18] MEDS: diphenhydrAMINE 50 MG/ML SDV IVPUSH PRN (03:20)
[2019-03-18] MEDS: 1: AA 5%/Calcium/D15W/Lytes 1,000 ML with MVI, Adult with Vitamin K 10 ML, Chromium/Copp IV SCH ×3 (03:38)
[2019-03-18] MEDS: Sodium Chloride 5% Ophth Soln 15 ML Bottle EYEBOTH SCH ×4 (05:23→22:51)
[2019-03-18] MEDS: Metoprolol Tartrate 5 MG/5 ML SDV IV SCH ×3 (05:23→18:22)
[2019-03-18] MEDS: Albuterol/Ipratropium 3.0-0.5 MG/3 ML Neb Soln INH SCH ×4 (06:59→20:27)
[2019-03-18] MEDS: Levothyroxine 100 MCG Vial IVPUSH SCH (08:53)
[2019-03-18] MEDS: Haloperidol Lactate 5 MG/ML SDV IVPUSH SCH ×2 (08:59→20:25)
[2019-03-18] MEDS: LORazepam 2 MG/ML SDV IVPUSH SCH ×2 (09:02→20:22)
[2019-03-18] MEDS: Docusate Sodium 100 MG Cap PO SCH ×2 (09:06→20:29)
[2019-03-18] MEDS: Insulin Glargine,Human Rec. Analog 100 Units/ML 3 ML Pen SUBCUT SCH (09:06)
[2019-03-18] MEDS: Linezolid 600 MG in Premix Bag 1 BAG IV SCH ×2 (10:04→22:48)
--- NOTE | 2019-03-18 10:07 | PCM.PN ---
- General Info Date of Service: 03/18/19 Subjective Update: Mr. Perez is remained stable over the last 24 hours. He has been started on a full liquid diet, there is some question about possible difficulty with swallowing. Vital signs have remained stable and he is been afebrile. Respiratory status seems to be stable at this time. - Patient Data Vitals - Most Recent: Last Vital Signs Temp 96.7 F 03/18/19 08:00 Pulse 103 H 03/18/19 06:59 Resp 20 03/18/19 08:00 BP 148/81 H 03/18/19 08:00 Pulse Ox 97 03/18/19 08:00 Weight - Most Recent: 161 lb 4.8 oz I&O - Last 24 Hours: Intake & Output 03/17/19 03/18/19 03/18/19 22:59 06:59 14:59 Intake Total 1074 1678 Output Total 200 1150 Balance 874 528 Lab Results Last 24 Hours: Laboratory Results - last 24 hr 03/18/19 03/18/19 03/18/19 Range/Units 04:30 04:30 04:30 WBC 12.9 H (4.5-11.0) K/uL RBC 3.26 L (4.30-5.90) M/uL Hgb 9.3 L (12.0-15.0) g/dL Hct 29.7 L (40.0-54.0) % MCV 91 (80-98) fL MCH 29 (27-31) pg MCHC 31 L (32-36) % Plt Count 253 (150-400) K/uL Puncture Site ABG pH (7.350-7.450) ABG pCO2 (35.0-42.0) mmHg ABG pO2 (75.0-100.0) mmHg ABG HCO3 (22.0-26.0) mmol/L ABG Total CO2 (23.0-27.0) mmol/L ABG O2 Saturation (95.0-98.0) % ABG O2 Content (15.0-23.0) %vol ABG Base Excess mm/L ABG Hemoglobin (13.5-18.0) g/dL ABG Oxyhemoglobin % ABG Carboxyhemoglobin (0.0-1.6) % ABG Methemoglobin % Andrew Test O2 Delivery Device Oxygen Flow Rate L Sodium 141 (140-148) mmol/L Potassium 4.2 (3.6-5.2) mmol/L Chloride 104 (100-108) mmol/L Carbon Dioxide 30 (21-32) mmol/L Anion Gap 7.0 (5.0-14.0) mmol/L BUN 32 H (7-18) mg/dL Creatinine 1.1 (0.8-1.3) mg/dL Est Cr Clr Drug Dosing 61.29 mL/min Estimated GFR (MDRD) > 60 (>60) Glucose 130 H (74-106) mg/dL Calcium 8.2 L (8.5-10.1) mg/dL Phosphorus 4.4 (2.5-4.9) mg/dL Magnesium 1.8 (1.8-2.4) mg/dL Total Bilirubin 0.6 (0.2-1.0) mg/dL AST 30 (15-37) U/L ALT 32 (12-78) U/L Alkaline Phosphatase 128 H (46-116) U/L NT-Pro-B Natriuret Pep 180 H (5-125) pg/mL Total Protein 5.0 L (6.4-8.2) g/dL Albumin 1.6 L (3.4-5.0) g/dL Globulin 3.4 (2.3-3.5) g/dL Albumin/Globulin Ratio 0.5 L (1.2-2.2) Valproic Acid 22.7 L (50.0-100.0) ug/mL 03/18/19 Range/Units 05:00 WBC (4.5-11.0) K/uL RBC (4.30-5.90) M/uL Hgb (12.0-15.0) g/dL Hct (40.0-54.0) % MCV (80-98) fL MCH (27-31) pg MCHC (32-36) % Plt Count (150-400) K/uL Puncture Site Lt radial ABG pH 7.471 H (7.350-7.450) ABG pCO2 38.7 (35.0-42.0) mmHg ABG pO2 97.3 (75.0-100.0) mmHg ABG HCO3 27.9 H (22.0-26.0) mmol/L ABG Total CO2 25.8 (23.0-27.0) mmol/L ABG O2 Saturation 97.6 (95.0-98.0) % ABG O2 Content 13.0 L (15.0-23.0) %vol ABG Base Excess 4.4 mm/L ABG Hemoglobin 9.5 L (13.5-18.0) g/dL ABG Oxyhemoglobin 95.7 % ABG Carboxyhemoglobin 1.1 (0.0-1.6) % ABG Methemoglobin 0.8 % Andrew Test Passed O2 Delivery Device Bipap Oxygen Flow Rate L Sodium (140-148) mmol/L Potassium (3.6-5.2) mmol/L Chloride (100-108) mmol/L Carbon Dioxide (21-32) mmol/L Anion Gap (5.0-14.0) mmol/L BUN (7-18) mg/dL Creatinine (0.8-1.3) mg/dL Est Cr Clr Drug Dosing mL/min Estimated GFR (MDRD) (>60) Glucose (74-106) mg/dL Calcium (8.5-10.1) mg/dL Phosphorus (2.5-4.9) mg/dL Magnesium (1.8-2.4) mg/dL Total Bilirubin (0.2-1.0) mg/dL AST (15-37) U/L ALT (12-78) U/L Alkaline Phosphatase (46-116) U/L NT-Pro-B Natriuret Pep (5-125) pg/mL Total Protein (6.4-8.2) g/dL Albumin (3.4-5.0) g/dL Globulin (2.3-3.5) g/dL Albumin/Globulin Ratio (1.2-2.2) Valproic Acid (50.0-100.0) ug/mL Med Orders - Current: Current Medications Albuterol (Proventil Neb Soln) 2.5 mg NEB Q4H PRN PRN Reason: Shortness Of Breath/wheezing Last Admin: 03/10/19 00:24 Dose: 2.5 mg Albuterol/Ipratropium (Duoneb 3.0-0.5 Mg/3 Ml) 3 ml INH QIDRT [facility] Last Admin: 03/18/19 06:59 Dose: 3 ml Dextrose (Glutose 15) 15 gm PO ASDIRECTED PRN PRN Reason: HYPOGLYCEMIA Dextrose/Water (Dextrose 50% In Water) 50 ml IVPUSH ASDIRECTED PRN PRN Reason: HYPOGLYCEMIA Diphenhydramine HCl (Benadryl) 25 mg IVPUSH Q4H PRN PRN Reason: Itching Last Admin: 03/18/19 03:20 Dose: 25 mg Docusate Sodium (Colace) 100 mg PO BID [facility] Last Admin: 03/18/19 09:06 Dose: Not Given Glucagon (Glucagen) 1 mg IM ASDIRECTED PRN PRN Reason: HYPOGLYCEMIA Haloperidol Lactate (Haldol) 2 mg IVPUSH Q4H PRN PRN Reason: Agitation Last Admin: 03/15/19 16:10 Dose: 2 mg Haloperidol Lactate (Haldol) 2.5 mg IVPUSH BID [facility] Last Admin: 03/18/19 08:59 Dose: 2.5 mg Heparin Sodium (Porcine) (Heparin Lock Flush 100 Units/Ml) 500 units FLUSH ASDIRECTED PRN PRN Reason: Keep Vein Open Last Admin: 03/11/19 08:30 Dose: 500 units Valproic Acid 500 mg/ Sodium (Chloride) 55 mls @ 55 mls/hr IV Q8H [facility] Last Admin: 03/18/19 05:23 Dose: 55 mls/hr Sodium Chloride (Normal Saline) 1,000 mls @ 20 mls/hr IV ASDIRECTED [facility] Last Admin: 03/13/19 22:58 Dose: 20 mls/hr Linezolid 600 mg/ Premix 300 mls @ 300 mls/hr IV Q12H [facility] Last Admin: 03/18/19 10:04 Dose: 300 mls/hr Azithromycin 250 mg/ Sodium (Chloride) 150 mls @ 150 mls/hr IV Q24H [facility] Last Admin: 03/17/19 11:28 Dose: 150 mls/hr Multivitamins/Minerals 10 ml/Chromium/Copper/Manganese/Seleni/Zn 1 ml/ Amino Ac/ Electrol/Dextrose/Calcium 1,011 mls @ 82 mls/hr IV .BY DURATION [facility] Last Admin: 03/17/19 14:26 Dose: 82 mls/hr Amino Ac/Electrol/Dextrose/Calcium (Clinimix E 5/15) 1,000 mls @ 82 mls/hr IV .BY DURATION [facility] Last Admin: 03/18/19 03:38 Dose: 82 mls/hr Insulin Glargine (Lantus Solostar) 14 units SUBCUT BID [facility] Last Admin: 03/18/19 09:06 Dose: 14 units Insulin Human Lispro (Humalog) 0 unit SUBCUT ASDIRECTED [facility]; Protocol Last Admin: 03/17/19 23:50 Dose: 3 units Latanoprost (Xalatan 0.005% Ophth Soln) 0 ml EYEBOTH BEDTIME [facility] Last Admin: 03/17/19 20:34 Dose: 1 drop Levothyroxine Sodium (Synthroid) 100 mcg IVPUSH DAILY [facility] Last Admin: 03/18/19 08:53 Dose: 100 mcg Lorazepam (Ativan) 0.5 mg IVPUSH Q4H PRN PRN Reason: Anxiety Last Admin: 03/17/19 23:41 Dose: 0.5 mg Lorazepam (Ativan) 0.5 mg IVPUSH BID [facility] Last Admin: 03/18/19 09:02 Dose: 0.5 mg Metoprolol Tartrate (Lopressor) 5 mg IV Q6H [facility] Last Admin: 03/18/19 05:23 Dose: 5 mg Naloxone HCl (Narcan) 0.1 mg IV ASDIRECTED PRN PRN Reason: decreased respiratory rate Ondansetron HCl (Zofran) 4 mg IVPUSH Q4H PRN PRN Reason: Nausea/Vomiting Last Admin: 03/09/19 20:57 Dose: 4 mg Pantoprazole Sodium (Protonix Iv) 40 mg IV Q24H [facility] Last Admin: 03/17/19 17:13 Dose: 40 mg Sodium Chloride (Joseph 128 5% Ophth Soln) 0 ml EYEBOTH QID [facility] Last Admin: 03/18/19 05:23 Dose: 1 drop Discontinued Medications Acetylcysteine (Mucomyst 20%) 400 mg INH BIDRT [facility] Last Admin: 03/12/19 07:48 Dose: 200 mg Acetylcysteine (Mucomyst 20%) 200 mg INH BIDRT [facility] Stop: 03/12/19 23:59 Last Admin: 03/12/19 20:44 Dose: 200 mg Bisacodyl (Dulcolax) 10 mg PO BID [facility] Last Admin: 03/17/19 20:35 Dose: Not Given Bisacodyl (Dulcolax) 10 mg RECTAL ONETIME ONE Stop: 03/17/19 17:01 Last Admin: 03/17/19 17:10 Dose: 10 mg Bupivacaine HCl (Marcaine 0.5%) Confirm Administered Dose 50 ml .ROUTE .STK-MED ONE Stop: 03/10/19 06:23 Bupivacaine HCl (Marcaine 0.5%) Confirm Administered Dose 50 ml .ROUTE .STK-MED ONE Stop: 03/11/19 07:19 Last Admin: 03/11/19 07:28 Dose: 15 ml Ropivacaine 36 ml/Dexamethasone 8 mg/Epinephrine HCl 0.4 mg/ Sodium Chloride 41.6 ml 0 ml NERVRT ASDIRECTED [facility] Last Admin: 03/08/19 15:05 Dose: 80 syringe Ropivacaine 36 ml/Dexamethasone 8 mg/Epinephrine HCl 0.4 mg/ Sodium Chloride 41.6 ml 0 ml NERVRT ASDIRECTED [facility] Last Admin: 03/11/19 07:41 Dose: 80 syringe Dexamethasone (Dexamethasone) Confirm Administered Dose 4 mg .ROUTE .STK-MED ONE Stop: 03/08/19 12:18 Diphenhydramine HCl (Benadryl) 25 mg IVPUSH Q6H PRN PRN Reason: Itching Diphenhydramine HCl (Benadryl) 25 mg PO Q6H PRN PRN Reason: Itching Fentanyl (Sublimaze) Confirm Administered Dose 250 mcg .ROUTE .STK-MED ONE Stop: 03/08/19 12:19 Furosemide (Lasix) 20 mg IVPUSH ONETIME ONE Stop: 03/09/19 21:56 Last Admin: 03/09/19 22:10 Dose: 20 mg Furosemide (Lasix) Confirm Administered Dose 20 mg .ROUTE .STK-MED ONE Stop: 03/09/19 22:05 Last Admin: 03/09/19 22:10 Dose: Not Given Furosemide (Lasix) 20 mg IVPUSH ONETIME ONE Stop: 03/10/19 06:33 Last Admin: 03/10/19 07:20 Dose: 20 mg Furosemide (Lasix) 20 mg IVPUSH ONETIME ONE Stop: 03/12/19 18:01 Last Admin: 03/12/19 17:43 Dose: 20 mg Furosemide (Lasix) 20 mg IVPUSH ONETIME ONE Stop: 03/12/19 07:31 Last Admin: 03/12/19 07:44 Dose: 20 mg Furosemide (Lasix) 10 mg IVPUSH Q12H [facility] Stop: 03/13/19 21:01 Last Admin: 03/13/19 20:29 Dose: 10 mg Furosemide (Lasix) 20 mg IVPUSH NOW ONE Stop: 03/15/19 11:31 Last Admin: 03/15/19 11:38 Dose: 20 mg Furosemide (Lasix) 20 mg IVPUSH ONETIME ONE Stop: 03/16/19 13:31 Last Admin: 03/16/19 14:18 Dose: 20 mg Furosemide (Lasix) 20 mg IVPUSH NOW ONE Stop: 03/17/19 09:16 Last Admin: 03/17/19 09:47 Dose: 20 mg Glycopyrrolate (Robinul) Confirm Administered Dose 1 mg .ROUTE .STK-MED ONE Stop: 03/08/19 12:18 Haloperidol Lactate (Haldol) 5 mg IVPUSH BID [facility] Last Admin: 03/09/19 09:06 Dose: 5 mg Heparin Sodium (Porcine) (Heparin Sodium) Confirm Administered Dose 5,000 units .ROUTE .STK-MED ONE Stop: 03/10/19 07:04 Last Admin: 03/10/19 07:57 Dose: Not Given Heparin Sodium (Porcine) (Heparin Lock Flush 100 Units/Ml) Confirm Administered Dose 1,000 units .ROUTE .STK-MED ONE Stop: 03/11/19 07:32 Last Admin: 03/11/19 08:31 Dose: Not Given Hydromorphone HCl (Dilaudid Housekeeping Room Inspector 15 Mg In Ns 30 Ml) 0 mg IV ASDIRECTED PRN; Protocol PRN Reason: PAIN Last Admin: 03/16/19 16:43 Dose: 15 mg Sodium Chloride (Normal Saline) 1,000 mls @ 1,000 mls/hr IV ASDIRECTED [facility] Last Admin: 03/08/19 10:02 Dose: 1,000 mls/hr Ampicillin Sodium/Sulbactam (Sodium 1.5 gm/ Sodium Chloride) 50 mls @ 100 mls/ hr IV Q6H [facility] Last Admin: 03/08/19 13:30 Dose: 100 mls/hr Aztreonam 1 gm/ Sodium (Chloride) 50 mls @ 100 mls/hr IV Q12H [facility] Last Admin: 03/08/19 13:30 Dose: 100 mls/hr Lactated Ringer's (Ringers, Lactated) 1,000 mls @ 150 mls/hr IV ASDIRECTED [facility] Last Admin: 03/08/19 13:31 Dose: 150 mls/hr Lactated Ringer's (Ringers, Lactated) Confirm Administered Dose 1,000 mls @ as directed .ROUTE .STK-MED ONE Stop: 03/08/19 15:16 Lactated Ringer's (Ringers, Lactated) 1,000 mls @ 100 mls/hr IV ASDIRECTED [facility] Last Admin: 03/09/19 03:26 Dose: 100 mls/hr Dextrose/Lactated Ringer's (Dextrose 5%-Lactated Ringers) 1,000 mls @ 100 mls/ hr IV ASDIRECTED [facility] Stop: 03/12/19 11:59 Last Admin: 03/11/19 23:35 Dose: 100 mls/hr Ampicillin Sodium/Sulbactam (Sodium 3 gm/ Sodium Chloride) 100 mls @ 200 mls/ hr IV Q6H [facility] Last Admin: 03/13/19 05:19 Dose: 200 mls/hr Aztreonam 1 gm/ Sodium (Chloride) 50 mls @ 100 mls/hr IV Q8H [facility] Last Admin: 03/13/19 04:23 Dose: 100 mls/hr Potassium Chloride 20 meq/Lidocaine HCl 2 ml/ Sodium Chloride 112 mls @ 56 mls/ hr IV Q2H [facility] Stop: 03/09/19 15:59 Last Admin: 03/09/19 17:30 Dose: 56 mls/hr Lactated Ringer's (Ringers, Lactated) 750 mls @ 750 mls/hr IV [facility] ONE Stop: 03/09/19 16:25 Last Admin: 03/09/19 15:53 Dose: 750 mls/hr Lactated Ringer's (Ringers, Lactated) 750 mls @ 999 mls/hr IV BOLUS ONE Stop: 03/09/19 21:15 Last Admin: 03/09/19 21:08 Dose: 999 mls/hr Heparin Sodium (Porcine) 5,000 (units/ Sodium Chloride) 501 mls @ 5 mls/hr IV ASDIRECTED [facility] Last Admin: 03/12/19 13:58 Dose: 5 mls/hr Propofol (Diprivan 100 Ml) 100 mls @ 2.191 mls/hr IV TITRATE [facility]; Protocol Last Titration: 03/15/19 07:18 Dose: 0 mcg/kg/min, 0 mls/hr Linezolid 600 mg/ Premix 300 mls @ 300 mls/hr IV Q12H [facility] Last Admin: 03/11/19 21:53 Dose: 300 mls/hr Potassium Chloride 20 meq/Lidocaine HCl 2 ml/ Sodium Chloride 112 mls @ 56 mls/ hr IV Q2H [facility] Stop: 03/10/19 16:29 Last Admin: 03/10/19 16:07 Dose: 56 mls/hr Potassium Chloride 20 meq/ (Premix) 0 mls @ 50 mls/hr IV Q2H [facility] Stop: 03/11/19 07:28 Last Admin: 03/11/19 07:32 Dose: 50 mls/hr Magnesium Sulfate 2 gm/ Premix 50 mls @ 25 mls/hr IV Q6H [facility] Last Admin: 03/12/19 04:27 Dose: 25 mls/hr Potassium Phosphate 20 mmole/ (Sodium Chloride) 256.6667 mls @ 85 mls/hr IV Q3H [facility] Stop: 03/11/19 17:59 Last Admin: 03/11/19 14:42 Dose: 85 mls/hr Multivitamins/Minerals 10 ml/Chromium/Copper/Manganese/Seleni/Zn 1 ml/ Amino Ac/ Electrol/Dextrose/Calcium 1,011 mls @ 82 mls/hr IV .BY DURATION [facility] Last Admin: 03/13/19 12:34 Dose: 82 mls/hr Amino Ac/Electrol/Dextrose/Calcium (Clinimix E 15) 1,000 mls @ 82 mls/hr IV .BY DURATION [facility] Last Admin: 03/14/19 01:20 Dose: 82 mls/hr Potassium Phosphate 20 mmole/ (Sodium Chloride) 256.6667 mls @ 85.556 mls/hr IV Q3H [facility] Stop: 03/12/19 16:59 Last Admin: 03/12/19 14:49 Dose: 85.556 mls/hr Potassium Chloride 20 meq/ (Premix) 100 mls @ 50 mls/hr IV ONETIME ONE Stop: 03/13/19 10:59 Last Admin: 03/13/19 09:29 Dose: 50 mls/hr Potassium Phosphate 30 mmole/ (Sodium Chloride) 110 mls @ 30 mls/hr IV ONETIME ONE Stop: 03/13/19 14:39 Last Admin: 03/13/19 12:14 Dose: 30 mls/hr Magnesium Sulfate 2 gm/ Premix 50 mls @ 25 mls/hr IV Q6H [facility] Stop: 03/16/19 03:59 Last Admin: 03/16/19 01:59 Dose: 25 mls/hr Azithromycin 250 mg/ Sodium (Chloride) 150 mls @ 150 mls/hr IV Q12H [facility] Insulin Glargine (Lantus Solostar) 10 units SUBCUT BID [facility] Last Admin: 03/16/19 09:27 Dose: 10 unit Insulin Human Lispro (Humalog) 0 unit SUBCUT Q6H PRN; Protocol PRN Reason: MEDIUM CORRECTIONAL DOSING Last Admin: 03/14/19 17:42 Dose: 7 units Insulin Human Lispro (Humalog) 15 unit SUBCUT ONETIME ONE Stop: 03/14/19 12:05 Last Admin: 03/14/19 12:10 Dose: 15 units Insulin Human Lispro (Humalog) 0 unit SUBCUT ONETIME ONE Stop: 03/15/19 00:16 Last Admin: 03/15/19 00:25 Dose: 12 units Lidocaine HCl (Xylocaine-Mpf 1%) 5 ml INJECT ONETIME ONE Stop: 03/11/19 05:30 Last Admin: 03/11/19 05:39 Dose: 2 ml Lidocaine/Epinephrine (Xylocaine 1% With Epinephrine 1:100,000) Confirm Administered Dose 50 ml .ROUTE .STK-MED ONE Stop: 03/10/19 06:23 Lidocaine/Epinephrine (Xylocaine 1% With Epinephrine 1:100,000) Confirm Administered Dose 50 ml .ROUTE .STK-MED ONE Stop: 03/11/19 07:19 Last Admin: 03/11/19 07:28 Dose: 15 ml Linezolid (Zyvox) 600 mg IRR .STK-MED ONE Stop: 03/11/19 07:39 Last Admin: 03/11/19 07:38 Dose: 600 mg Lorazepam (Ativan) 0.5 mg IVPUSH BID [facility] Last Admin: 03/09/19 09:09 Dose: 0.5 mg Lorazepam (Ativan) 0.25 mg IVPUSH BID [facility] Last Admin: 03/10/19 09:09 Dose: 0.25 mg Meropenem (Merrem) Confirm Administered Dose 500 mg .ROUTE .STK-MED ONE Stop: 03/08/19 12:05 Last Admin: 03/08/19 14:00 Dose: 500 mg Meropenem (Merrem) Confirm Administered Dose 500 mg .ROUTE .STK-MED ONE Stop: 03/10/19 06:23 Meropenem (Merrem) Confirm Administered Dose 500 mg .ROUTE .STK-MED ONE Stop: 03/11/19 06:45 Last Admin: 03/11/19 07:38 Dose: 500 mg Neostigmine Methylsulfate (Neostigmine) Confirm Administered Dose 5 mg .ROUTE .STK-MED ONE Stop: 03/08/19 12:18 Ondansetron HCl (Zofran) Confirm Administered Dose 4 mg .ROUTE .STK-MED ONE Stop: 03/08/19 12:18 Ondansetron HCl (Zofran) 4 mg IVPUSH Q6H PRN PRN Reason: Nausea/Vomiting Propofol (Diprivan 20 Ml) Confirm Administered Dose 200 mg .ROUTE .STK-MED ONE Stop: 03/08/19 12:18 Propofol (Diprivan 20 Ml) Confirm Administered Dose 200 mg .ROUTE .STK-MED ONE Stop: 03/10/19 07:33 Rocuronium Emery (Zemuron) Confirm Administered Dose 50 mg .ROUTE .STK-MED ONE Stop: 03/08/19 12:18 Succinylcholine Chloride (Quelicin) Confirm Administered Dose 200 mg .ROUTE .STK -MED ONE Stop: 03/08/19 12:18 Succinylcholine Chloride (Quelicin) Confirm Administered Dose 200 mg .ROUTE .STK -MED ONE Stop: 03/10/19 07:33 - Exam Quality Assessment: Supplemental Oxygen, Central Line/PICC, Urine Catheter, DVT Prophylaxis General: Alert, Cooperative, No Acute Distress. No: Oriented Lungs: Clear to Auscultation, Normal Respiratory Effort Cardiovascular: Regular Rate, Regular Rhythm, No Murmurs GI/Abdominal Exam: Soft, No Organomegaly, Tender. No: Distended, Guarding, Rigid, Rebound - Problem List Review Problem List Initiated/Reviewed/Updated: Yes - My Orders Last 24 Hours: My Active Orders 03/18/19 10:03 Remove Rodriguez Catheter [Urinary Catheter Removal] [RC] Per Unit Routine 03/18/19 10:04 Consult to Speech Language Pathology [CAREER DEVELOPMENT FACILITATOR Evaluation and Treatment] [CONS] Routine - Plan Plan:: ASSESSMENT AND PLAN - Small bowel obstruction with pneumatosis - status post emergent laparotomy with small bowel resection and right colectomy 03/08. Started on full liquid diet today -Postoperative care per surgical team -He is receiving TPN, decrease rate to 40 mL per hour -Pain control Acute respiratory failure with hypoxia - stable respiratory status, continues to require frequent suctioning -Noninvasive positive pressure ventilation -Antibiotic coverage with linezolid -Vigorous pulmonary toilet Type 2 diabetes mellitus-glucose levels improved over the last 48 hours but still remain elevated above desired range -Continue glucometers every 6 hours -Regular insulin 15 units added to each liter of TPN -High dose sliding scale Humalog -Lantus 18 units subcutaneous twice daily Hypokalemia - potassium level improved with supplementation. -Recheck in the morning Severe schizophrenia - patient is very debilitated because of his psychiatric illness. -Continue low-dose Haldol -Continue regular dose Depakote -low dose lorazepam -Restart oral medications when able Acute kidney injury - resolved -Continue to closely monitor urine output and renal function Maintenance issues - - DVT prophylaxis - mechanical - GI prophylaxis - IV PPI - Nutrition - nothing by mouth, currently receiving TPN for nutritional support - Rodriguez catheter - placed for strict intake and output monitoring with a critical patient Disposition - anticipate discharge home versus more likely the skilled nursing
[2019-03-18] MEDS: Insulin Lispro 100 Unit/ML 3 ML KwikPen SUBCUT SCH (11:27)
[2019-03-18] MEDS ORDERED: 1: AA 5%/Calcium/D15W/Lytes 1,000 ML with MVI, Adult with Vitamin K 10 ML, Chromium/Copp IV SCH ×3 (16:00)
[2019-03-18] MEDS: LORazepam 2 MG/ML SDV IVPUSH PRN ×2 (16:17→22:19)
[2019-03-18] MEDS: Haloperidol Lactate 5 MG/ML SDV IVPUSH PRN ×2 (17:18→21:57)
[2019-03-18] MEDS: Ondansetron 4 MG/2 ML SDV IVPUSH PRN (17:31)
[2019-03-18] MEDS: Pantoprazole 40 MG Vial IV SCH (18:15)
[2019-03-18] MEDS: Latanoprost 0.005% Ophth Soln 2.5 ML Bottle EYEBOTH SCH (20:30)
[2019-03-18] MEDS ORDERED: Insulin Glargine,Human Rec. Analog 100 Units/ML 3 ML Pen SUBCUT SCH (21:00)
[2019-03-18] MEDS ORDERED: Sodium Chloride 0.9% 50 ML ONE (21:34)
[2019-03-18] MEDS: Piperacillin/Tazobactam 3.375 GM in Sodium Chloride 0.9% 50 ML IV SCH (21:39)
[2019-03-18] MEDS: methylPREDNISolone Sodium Succinate 40 MG/1 ML SDV IVPUSH SCH (21:57)
[2019-03-18] MEDS ORDERED: Heparin Sodium 5,000 Units/ML Vial ONE (23:02)
[2019-03-18] MEDS ORDERED: Sodium Chloride 0.9% 500 ML IV ONE (23:30)
--- NOTE | 2019-03-19 00:05 | CRLCR ---
INDICATION: Respiratory failure, intubation TECHNIQUE: Chest radiograph 1 view COMPARISON: 03/15/2019 FINDINGS: Mediastinum: The mediastinum is normal in appearance. The heart silhouette is normal in size and morphology. The endotracheal tube tip is positioned 4.5 cm from the yair. Left PICC line has been placed with tip in the cavoatrial region. NG tube has its tip near the gastric fundus. Lung: Bibasilar consolidation and small bilateral pleural effusions are present without significant interval change. No pneumothorax is identified. IMPRESSION: 1. There has been no significant interval changes. Dictated by Ashutosh Rowell MD @ 03/19/2019 12:04:06 AM Dictated by: Ashutosh Rowell MD @ 03/19/2019 00:04:12 (Electronically Signed)
[2019-03-19] MEDS: Sodium Chloride 0.9% 1,000 ML IV SCH ×2 (00:30→08:13)
[2019-03-19] MEDS: Metoprolol Tartrate 5 MG/5 ML SDV IV SCH ×5 (00:40→23:40)
--- NOTE | 2019-03-19 00:42 | PCM.SN ---
- Free Text/Narrative Note: Mr. Perez had done well through the day, started on a full liquid diet earlier. This evening he had one smaller episode of emesis and was stable after that. Shortly thereafter had another large emesis and appeared to of aspirated. NG tube was placed with large volume return. He developed some respiratory compromise and was placed on noninvasive positive pressure ventilation. He was started on IV Zosyn as well as IV Solu-Medrol. Despite these interventions he developed progressive respiratory compromise with hypoxia and hypercapnia. Because of developing respiratory failure he has been intubated and placed on mechanical ventilation. On physical examination lungs are relatively clear he has a regular rhythm but is tachycardic with no obvious murmurs. Abdomen mildly distended but otherwise soft and not overly tender. No peripheral edema. He is felt to experienced aspiration resulting in respiratory compromise above medications will be continued. CT scan of the chest abdomen and pelvis will be obtained early this morning for further evaluation. Rodriguez catheter is been placed back in and he is currently nothing by mouth. We'll asked Dr. Monae to consider new central line placement tomorrow because of ongoing need for TPN. 1 hour of critical care time was spent in the direct management and care of this patient in the intensive care unit.
[2019-03-19] MEDS: Insulin Lispro 100 Unit/ML 3 ML KwikPen SUBCUT SCH ×4 (00:48→17:09)
[2019-03-19] MEDS: Heparin Sodium 5,000 UNITS in Sodium Chloride 0.9% 500 ML IV SCH (01:06)
[2019-03-19] MEDS: Piperacillin/Tazobactam 3.375 GM in Sodium Chloride 0.9% 50 ML IV SCH (04:17)
[2019-03-19] MEDS: methylPREDNISolone Sodium Succinate 40 MG/1 ML SDV IVPUSH SCH ×4 (04:20→21:35)
[2019-03-19] MEDS ORDERED: Iopamidol 755 Mg/ML 100 ML Bottle IV SCH (04:45)
[2019-03-19] MEDS ORDERED: Sodium Chloride 0.9% 100 ML IV SCH (04:45)
--- NOTE | 2019-03-19 05:14 | CRLCR ---
INDICATION: Respiratory failure TECHNIQUE: Chest 1 view. COMPARISON: 03/18/2019 FINDINGS: Cardiovascular and mediastinum: Heart size and vasculature are normal in caliber and appearance. Mediastinum is within normal limits. Lungs and pleural space: Lungs are clear. No sign of infiltrate or mass. Stable bilateral pleural effusion. No pneumothorax. Bones and soft tissues: No significant findings. Lines and tubes colon stable positioning of lines and tubes. IMPRESSION: Stable appearance of the chest compared to 03/18/2019. Dictated by Bernardo Duong MD @ 03/19/2019 5:11:39 AM Dictated by: Bernardo Duong MD @ 03/19/2019 05:11:46 (Electronically Signed)
--- NOTE | 2019-03-19 07:34 | ANES ---
DATE OF SERVICE: 03/18/2019 TIME: 2300 hours. I was called to the intensive care unit by Dr. Jaffe to evaluate Mr. Perez for an intubation and an arterial line. He was extubated, I think, on Thursday or Thursday, and he is progressively, what they believe, aspirating on some vomit. He was on a BiPAP machine and was pretty incoherent when I got there. 200 mg propofol was given IV. A 3 MAC was inserted and an 8.0 endotracheal tube was inserted into the trachea with ease. The patient tolerated that procedure very nicely. There was bilateral breath sounds and positive end-tidal CO2 obtained. Attention was then turned to the arterial line. I did put a 20-gauge left radial Arrow catheter into the left radial artery. I used chlorhexidine prep. Arterial line had very good waveform and good blood return. I did suture it with a 2-0 Prolene. I used a Tegaderm and tape to secure the arterial line as well. The patient tolerated both procedures very nicely. Maninder Tamayo CRNA /[id number]
[2019-03-19] MEDS: Albuterol/Ipratropium 3.0-0.5 MG/3 ML Neb Soln INH SCH ×4 (07:45→21:20)
[2019-03-19] MEDS ORDERED: 1: AA 5%/Calcium/D15W/Lytes 1,000 ML with MVI, Adult with Vitamin K 10 ML, Chromium/Copp IV SCH ×3 (08:00)
[2019-03-19] MEDS: Sodium Chloride 5% Ophth Soln 15 ML Bottle EYEBOTH SCH ×4 (08:12→21:36)
[2019-03-19] MEDS: LORazepam 2 MG/ML SDV IVPUSH SCH ×2 (08:30→21:16)
[2019-03-19] MEDS: Docusate Sodium 100 MG Cap PO SCH ×2 (08:30→21:25)
[2019-03-19] MEDS: Haloperidol Lactate 5 MG/ML SDV IVPUSH SCH ×2 (08:34→21:18)
[2019-03-19] MEDS: Levothyroxine 100 MCG Vial IVPUSH SCH (08:36)
--- NOTE | 2019-03-19 08:39 | CRLCT ---
Indication: Surgery 10 days ago for small-bowel obstruction. Technique: Multiple contiguous axial images were obtained from along bases symphysis pubis after the intravenous administration of 100 cc Isovue 370. Please note that all CT scans at this facility use dose modulation, iterative reconstruction, and/or weight-based dosing when appropriate to reduce radiation dose to as low as reasonably achievable. Comparison: March 08, 2018. Findings: Bilateral lower lobe infiltrates are identified. Small bilateral pleural effusions are seen. The heart is normal in size. An NG tube is identified with the tip in the body of the stomach. The liver, spleen, pancreas, adrenals, kidneys are normal. No intrahepatic biliary ductal dilatation is identified. No hydronephrosis is seen. Thickening of the wall of the gallbladder is identified. The gallbladder is contracted. Pericholecystic free fluid is identified. In the pelvis, the wall of urinary bladder is thickened. Bilateral fat containing inguinal hernias are identified. The aorta is normal in caliber. No free air is identified within the abdomen or pelvis. A trace amount of free fluid is identified within the abdomen and pelvis. Thickening of the wall of the rectum is identified. A moderate amount of stool is identified within the sigmoid. Postoperative changes are identified in the right lower quadrant. Dilated loops of small bowel are identified in the mid abdomen centrally and to the left of midline. The small bowel loops are dilated up to 4.3 cm in size. The transition does appear to be at the level of the postoperative changes in the right lower quadrant. Thickening of the wall of the small bowel is identified. Early pneumatosis of the small bowel just prior to the post-surgical change in the right lower quadrant cannot be excluded.These findings are worrisome for a partial or incomplete small bowel obstruction. Impression: Findings worrisome for partial or incomplete small bowel obstruction with a transition in the right lower quadrant at the level of the postoperative change. Small amount of free fluid is identified within the pelvis. Early pneumatosis of the small bowel just prior to the post-surgical change in the right lower quadrant cannot be excluded. Contracted gallbladder with pericholecystic free fluid Small amount of free fluid Bilateral lower lobe infiltrates, with associated small bilateral pleural effusions These findings were discussed with Dr. Jaffe at the time of this dictation. Please note that all CT scans at this facility use dose modulation, iterative reconstruction, and/or weight-based dosing when appropriate to reduce radiation dose to as low as reasonably achievable. Dictated by Анна Jaimes MD @ Mar 19 2019 8:26AM Signed by Dr. Анна Jaimes @ Mar 19 2019 8:38AM
--- NOTE | 2019-03-19 08:49 | CRLCT ---
Indication: Respiratory failure. Technique: Multiple contiguous axial images were obtained from the thoracic inlet through the upper abdomen after the intravenous administration 100 cc Isovue 370. This examination is tailored for the evaluation of pulmonary arteries. Please note that all CT scans at this facility use dose modulation, iterative reconstruction, and/or weight-based dosing when appropriate to reduce radiation dose to as low as reasonably achievable. Comparison: None Findings: An ETT is identified with the tip 3 cm superior to level of the yair. An NG tube is identified with the tip in the body of the stomach. The aorta is normal in caliber. There is no evidence of aortic dissection. Heart is borderline in size. A trace pericardial effusion is identified. Shotty mediastinal lymphadenopathy is identified. No axillary lymphadenopathy is identified. The visualized portions of the liver, spleen, adrenals, left kidney are grossly normal. Degenerative changes of the spine are seen. No lytic or blastic lesions are identified. Infiltrates are identified and the right upper lobe. These are ground-glass opacity infiltrates up. In both lower lobes, dense consolidation is identified. Small bilateral pleural effusions are identified. No pneumothorax is seen. No pulmonary embolism is identified. Impression: No pulmonary embolism. No evidence of aortic dissection. Dense consolidation in both lung bases with small bilateral pleural effusions. Patchy ground-glass opacities identified in the right upper lobe. These findings were called to Dr. Jaffe at the time of this dictation. Please note that all CT scans at this facility use dose modulation, iterative reconstruction, and/or weight-based dosing when appropriate to reduce radiation dose to as low as reasonably achievable. Dictated by Анна Jaimes MD @ Mar 19 2019 8:43AM Signed by Dr. Анна Jaimes @ Mar 19 2019 8:49AM
[2019-03-19] MEDS: Piperacillin/Tazobactam/Dext 3.375 GM in Premix Bag 1 BAG IV SCH ×3 (09:20→21:32)
[2019-03-19] MEDS: Linezolid 600 MG in Premix Bag 1 BAG IV SCH ×2 (10:07→22:03)
--- NOTE | 2019-03-19 11:27 | PCM.PN ---
- General Info Date of Service: 03/19/19 Subjective Update: Mr. Perez was started on a diet yesterday which unfortunately did not tolerate , developed nausea vomiting and likely aspirated. Following aspiration he developed a progressive decline in respiratory status with acute hypoxic and hypercapnic respiratory failure requiring intubation and mechanical ventilation. Initially required high level of supplemental oxygen but has now been tapered down through the night. Following intubation he was also hypotensive but that did respond to fluid infusion and blood pressures are now within stable range. Sinus tachycardia has resolved and he appears to be much more comfortable. CT scan of the chest obtained today shows bibasilar infiltrates that have been there for some time, no evidence of new infiltrate or pulmonary emboli. CT scan of the abdomen pelvis documents small bowel obstruction with transition point in the right lower quadrant. Because of intubation and sedation he is unable to provide meaningful history concerning symptoms or review of systems. - Patient Data Vitals - Most Recent: Last Vital Signs Temp 98.5 F 03/19/19 08:00 Pulse 98 03/19/19 10:39 Resp 18 03/19/19 10:00 BP 113/49 L 03/19/19 10:00 Pulse Ox 96 03/19/19 10:00 Weight - Most Recent: 174 lb 2.643 oz I&O - Last 24 Hours: Intake & Output 03/18/19 03/19/19 03/19/19 22:59 06:59 14:59 Intake Total 1090 2653 Output Total 200 1950 Balance 890 703 Lab Results Last 24 Hours: Laboratory Results - last 24 hr 03/18/19 03/19/19 03/19/19 Range/Units 22:29 00:01 04:15 WBC 28.5 H (4.5-11.0) K/uL RBC 2.99 L (4.30-5.90) M/uL Hgb 8.7 L (12.0-15.0) g/dL Hct 27.3 L (40.0-54.0) % MCV 91 (80-98) fL MCH 29 (27-31) pg MCHC 32 (32-36) % Plt Count 279 (150-400) K/uL Puncture Site Rt radial A-line ABG pH 7.328 L 7.419 (7.350-7.450) ABG pCO2 52.8 H 39.7 (35.0-42.0) mmHg ABG pO2 65.6 L 74.4 L (75.0-100.0) mmHg ABG HCO3 27.0 H 25.2 (22.0-26.0) mmol/L ABG Total CO2 25.2 23.6 (23.0-27.0) mmol/L ABG O2 Saturation 89.1 L 94.1 L (95.0-98.0) % ABG O2 Content 13.5 L 11.8 L (15.0-23.0) %vol ABG Base Excess 0.9 1.2 mm/L ABG Hemoglobin 10.9 L 9.0 L (13.5-18.0) g/dL ABG Oxyhemoglobin 88.1 92.6 % ABG Carboxyhemoglobin 0.2 0.3 (0.0-1.6) % ABG Methemoglobin 0.9 1.3 % Andrew Test Passed A-line O2 Delivery Device Bipap Ventilator Oxygen Flow Rate L Sodium (140-148) mmol/L Potassium (3.6-5.2) mmol/L Chloride (100-108) mmol/L Carbon Dioxide (21-32) mmol/L Anion Gap (5.0-14.0) mmol/L BUN (7-18) mg/dL Creatinine (0.8-1.3) mg/dL Est Cr Clr Drug Dosing mL/min Estimated GFR (MDRD) (>60) Glucose (74-106) mg/dL Calcium (8.5-10.1) mg/dL Phosphorus (2.5-4.9) mg/dL Magnesium (1.8-2.4) mg/dL Total Bilirubin (0.2-1.0) mg/dL AST (15-37) U/L ALT (12-78) U/L Alkaline Phosphatase (46-116) U/L Total Protein (6.4-8.2) g/dL Albumin (3.4-5.0) g/dL Globulin (2.3-3.5) g/dL Albumin/Globulin Ratio (1.2-2.2) 03/19/19 03/19/19 Range/Units 04:15 04:15 WBC (4.5-11.0) K/uL RBC (4.30-5.90) M/uL Hgb (12.0-15.0) g/dL Hct (40.0-54.0) % MCV (80-98) fL MCH (27-31) pg MCHC (32-36) % Plt Count (150-400) K/uL Puncture Site A-line ABG pH 7.455 H (7.350-7.450) ABG pCO2 36.4 (35.0-42.0) mmHg ABG pO2 97.7 (75.0-100.0) mmHg ABG HCO3 25.2 (22.0-26.0) mmol/L ABG Total CO2 23.6 (23.0-27.0) mmol/L ABG O2 Saturation 97.3 (95.0-98.0) % ABG O2 Content 12.0 L (15.0-23.0) %vol ABG Base Excess 1.8 mm/L ABG Hemoglobin 8.8 L (13.5-18.0) g/dL ABG Oxyhemoglobin 95.5 % ABG Carboxyhemoglobin 0.9 (0.0-1.6) % ABG Methemoglobin 1.0 % Andrew Test A-line O2 Delivery Device Nasal cannula Oxygen Flow Rate L Sodium 142 (140-148) mmol/L Potassium 4.3 (3.6-5.2) mmol/L Chloride 107 (100-108) mmol/L Carbon Dioxide 26 (21-32) mmol/L Anion Gap 8.6 (5.0-14.0) mmol/L BUN 35 H (7-18) mg/dL Creatinine 1.3 (0.8-1.3) mg/dL Est Cr Clr Drug Dosing 51.86 mL/min Estimated GFR (MDRD) 57 L (>60) Glucose 179 H (74-106) mg/dL Calcium 8.0 L (8.5-10.1) mg/dL Phosphorus 5.3 H (2.5-4.9) mg/dL Magnesium 1.7 L (1.8-2.4) mg/dL Total Bilirubin 0.5 (0.2-1.0) mg/dL AST 26 (15-37) U/L ALT 33 (12-78) U/L Alkaline Phosphatase 131 H (46-116) U/L Total Protein 5.0 L (6.4-8.2) g/dL Albumin 1.6 L (3.4-5.0) g/dL Globulin 3.4 (2.3-3.5) g/dL Albumin/Globulin Ratio 0.5 L (1.2-2.2) Med Orders - Current: Current Medications Albuterol (Proventil Neb Soln) 2.5 mg NEB Q4H PRN PRN Reason: Shortness Of Breath/wheezing Last Admin: 03/10/19 00:24 Dose: 2.5 mg Albuterol/Ipratropium (Duoneb 3.0-0.5 Mg/3 Ml) 3 ml INH QIDRT [facility] Last Admin: 03/19/19 10:38 Dose: 3 ml Dextrose (Glutose 15) 15 gm PO ASDIRECTED PRN PRN Reason: HYPOGLYCEMIA Dextrose/Water (Dextrose 50% In Water) 50 ml IVPUSH ASDIRECTED PRN PRN Reason: HYPOGLYCEMIA Diphenhydramine HCl (Benadryl) 25 mg IVPUSH Q4H PRN PRN Reason: Itching Last Admin: 03/18/19 03:20 Dose: 25 mg Docusate Sodium (Colace) 100 mg PO BID [facility] Last Admin: 03/19/19 08:30 Dose: Not Given Glucagon (Glucagen) 1 mg IM ASDIRECTED PRN PRN Reason: HYPOGLYCEMIA Haloperidol Lactate (Haldol) 2 mg IVPUSH Q4H PRN PRN Reason: Agitation Last Admin: 03/18/19 21:57 Dose: 2 mg Haloperidol Lactate (Haldol) 2.5 mg IVPUSH BID [facility] Last Admin: 03/19/19 08:34 Dose: 2.5 mg Heparin Sodium (Porcine) (Heparin Lock Flush 100 Units/Ml) 500 units FLUSH ASDIRECTED PRN PRN Reason: Keep Vein Open Last Admin: 03/19/19 07:42 Dose: 500 units Valproic Acid 500 mg/ Sodium (Chloride) 55 mls @ 55 mls/hr IV Q8H [facility] Last Admin: 03/19/19 05:16 Dose: 55 mls/hr Linezolid 600 mg/ Premix 300 mls @ 300 mls/hr IV Q12H [facility] Last Admin: 03/19/19 10:07 Dose: 300 mls/hr Propofol (Diprivan 100 Ml) 100 mls @ 2.195 mls/hr IV TITRATE [facility]; Protocol Last Admin: 03/19/19 07:42 Dose: 35 mcg/kg/min, 15.364 mls/hr Heparin Sodium (Porcine) 5,000 (units/ Sodium Chloride) 501 mls @ 0.1 mls/hr IV ASDIRECTED [facility] Last Admin: 03/19/19 01:06 Dose: 1 units/hr, 0.1 mls/hr Sodium Chloride (Normal Saline) 1,000 mls @ 20 mls/hr IV ASDIRECTED [facility] Last Admin: 03/19/19 08:13 Dose: 125 mls/hr Multivitamins/Minerals 10 ml/Chromium/Copper/Manganese/Seleni/Zn 1 ml/ Amino Ac/ Electrol/Dextrose/Calcium 1,011 mls @ 80 mls/hr IV .BY DURATION [facility] Stop: 03/19/19 20:00 Amino Ac/Electrol/Dextrose/Calcium (Clinimix E 5/15) 1,000 mls @ 80 mls/hr IV .BY DURATION [facility] Stop: 03/19/19 20:00 Last Admin: 03/19/19 08:12 Dose: 80 mls/hr Piperacillin/Tazobactam/ (Dextrose 3.375 gm/ Premix) 50 mls @ 100 mls/hr IV Q6H [facility] Last Admin: 03/19/19 09:20 Dose: 100 mls/hr Multivitamins/Minerals 10 ml/Chromium/Copper/Manganese/Seleni/Zn 1 ml/ Amino Ac/ Electrol/Dextrose/Calcium 1,011 mls @ 82 mls/hr IV .BY DURATION [facility] Amino Ac/Electrol/Dextrose/Calcium (Clinimix E 5/15) 1,000 mls @ 82 mls/hr IV .BY DURATION [facility] Insulin Human Lispro (Humalog) 0 unit SUBCUT ASDIRECTED [facility]; Protocol Last Admin: 03/19/19 06:14 Dose: 3 units Latanoprost (Xalatan 0.005% Ophth Soln) 0 ml EYEBOTH BEDTIME [facility] Last Admin: 03/18/19 20:30 Dose: 1 drop Levothyroxine Sodium (Synthroid) 100 mcg IVPUSH DAILY [facility] Last Admin: 03/19/19 08:36 Dose: 100 mcg Lorazepam (Ativan) 0.5 mg IVPUSH Q4H PRN PRN Reason: Anxiety Last Admin: 03/18/19 22:19 Dose: 0.5 mg Lorazepam (Ativan) 0.5 mg IVPUSH BID [facility] Last Admin: 03/19/19 08:30 Dose: 0.5 mg Methylprednisolone Sodium Succinate (Solu-Medrol) 40 mg IVPUSH Q6H [facility] Last Admin: 03/19/19 10:05 Dose: 40 mg Metoprolol Tartrate (Lopressor) 5 mg IV Q6H [facility] Last Admin: 03/19/19 06:13 Dose: 5 mg Naloxone HCl (Narcan) 0.1 mg IV ASDIRECTED PRN PRN Reason: decreased respiratory rate Ondansetron HCl (Zofran) 4 mg IVPUSH Q4H PRN PRN Reason: Nausea/Vomiting Last Admin: 03/18/19 17:31 Dose: 4 mg Pantoprazole Sodium (Protonix Iv) 40 mg IV Q24H [facility] Last Admin: 03/18/19 18:15 Dose: 40 mg Sodium Chloride (Joseph 128 5% Ophth Soln) 0 ml EYEBOTH QID [facility] Last Admin: 03/19/19 09:20 Dose: 1 drop Discontinued Medications Acetylcysteine (Mucomyst 20%) 400 mg INH BIDRT [facility] Last Admin: 03/12/19 07:48 Dose: 200 mg Acetylcysteine (Mucomyst 20%) 200 mg INH BIDRT [facility] Stop: 03/12/19 23:59 Last Admin: 03/12/19 20:44 Dose: 200 mg Bisacodyl (Dulcolax) 10 mg PO BID [facility] Last Admin: 03/17/19 20:35 Dose: Not Given Bisacodyl (Dulcolax) 10 mg RECTAL ONETIME ONE Stop: 03/17/19 17:01 Last Admin: 03/17/19 17:10 Dose: 10 mg Bupivacaine HCl (Marcaine 0.5%) Confirm Administered Dose 50 ml .ROUTE .STK-MED ONE Stop: 03/10/19 06:23 Bupivacaine HCl (Marcaine 0.5%) Confirm Administered Dose 50 ml .ROUTE .STK-MED ONE Stop: 03/11/19 07:19 Last Admin: 03/11/19 07:28 Dose: 15 ml Ropivacaine 36 ml/Dexamethasone 8 mg/Epinephrine HCl 0.4 mg/ Sodium Chloride 41.6 ml 0 ml NERVRT ASDIRECTED [facility] Last Admin: 03/08/19 15:05 Dose: 80 syringe Ropivacaine 36 ml/Dexamethasone 8 mg/Epinephrine HCl 0.4 mg/ Sodium Chloride 41.6 ml 0 ml NERVRT ASDIRECTED [facility] Last Admin: 03/11/19 07:41 Dose: 80 syringe Dexamethasone (Dexamethasone) Confirm Administered Dose 4 mg .ROUTE .STK-MED ONE Stop: 03/08/19 12:18 Diphenhydramine HCl (Benadryl) 25 mg IVPUSH Q6H PRN PRN Reason: Itching Diphenhydramine HCl (Benadryl) 25 mg PO Q6H PRN PRN Reason: Itching Fentanyl (Sublimaze) Confirm Administered Dose 250 mcg .ROUTE .STK-MED ONE Stop: 03/08/19 12:19 Furosemide (Lasix) 20 mg IVPUSH ONETIME ONE Stop: 03/09/19 21:56 Last Admin: 03/09/19 22:10 Dose: 20 mg Furosemide (Lasix) Confirm Administered Dose 20 mg .ROUTE .STK-MED ONE Stop: 03/09/19 22:05 Last Admin: 03/09/19 22:10 Dose: Not Given Furosemide (Lasix) 20 mg IVPUSH ONETIME ONE Stop: 03/10/19 06:33 Last Admin: 03/10/19 07:20 Dose: 20 mg Furosemide (Lasix) 20 mg IVPUSH ONETIME ONE Stop: 03/12/19 18:01 Last Admin: 03/12/19 17:43 Dose: 20 mg Furosemide (Lasix) 20 mg IVPUSH ONETIME ONE Stop: 03/12/19 07:31 Last Admin: 03/12/19 07:44 Dose: 20 mg Furosemide (Lasix) 10 mg IVPUSH Q12H [facility] Stop: 03/13/19 21:01 Last Admin: 03/13/19 20:29 Dose: 10 mg Furosemide (Lasix) 20 mg IVPUSH NOW ONE Stop: 03/15/19 11:31 Last Admin: 03/15/19 11:38 Dose: 20 mg Furosemide (Lasix) 20 mg IVPUSH ONETIME ONE Stop: 03/16/19 13:31 Last Admin: 03/16/19 14:18 Dose: 20 mg Furosemide (Lasix) 20 mg IVPUSH NOW ONE Stop: 03/17/19 09:16 Last Admin: 03/17/19 09:47 Dose: 20 mg Glycopyrrolate (Robinul) Confirm Administered Dose 1 mg .ROUTE .STK-MED ONE Stop: 03/08/19 12:18 Haloperidol Lactate (Haldol) 5 mg IVPUSH BID [facility] Last Admin: 03/09/19 09:06 Dose: 5 mg Heparin Sodium (Porcine) (Heparin Sodium) Confirm Administered Dose 5,000 units .ROUTE .[facility]-MED ONE Stop: 03/10/19 07:04 Last Admin: 03/10/19 07:57 Dose: Not Given Heparin Sodium (Porcine) (Heparin Lock Flush 100 Units/Ml) Confirm Administered Dose 1,000 units .ROUTE .[facility]-MED ONE Stop: 03/11/19 07:32 Last Admin: 03/11/19 08:31 Dose: Not Given Heparin Sodium (Porcine) (Heparin Sodium) Confirm Administered Dose 5,000 units .ROUTE .[facility]-MED ONE Stop: 03/18/19 23:03 Last Admin: 03/19/19 02:36 Dose: Not Given Hydromorphone HCl (Dilaudid Helmet Hat Puncher 15 Mg In Ns 30 Ml) 0 mg IV ASDIRECTED PRN; Protocol PRN Reason: PAIN Last Admin: 03/16/19 16:43 Dose: 15 mg Sodium Chloride (Normal Saline) 1,000 mls @ 1,000 mls/hr IV ASDIRECTED [facility] Last Admin: 03/08/19 10:02 Dose: 1,000 mls/hr Ampicillin Sodium/Sulbactam (Sodium 1.5 gm/ Sodium Chloride) 50 mls @ 100 mls/ hr IV Q6H [facility] Last Admin: 03/08/19 13:30 Dose: 100 mls/hr Aztreonam 1 gm/ Sodium (Chloride) 50 mls @ 100 mls/hr IV Q12H [facility] Last Admin: 03/08/19 13:30 Dose: 100 mls/hr Lactated Ringer's (Ringers, Lactated) 1,000 mls @ 150 mls/hr IV ASDIRECTED [facility] Last Admin: 03/08/19 13:31 Dose: 150 mls/hr Lactated Ringer's (Ringers, Lactated) Confirm Administered Dose 1,000 mls @ as directed .ROUTE .STK-MED ONE Stop: 03/08/19 15:16 Lactated Ringer's (Ringers, Lactated) 1,000 mls @ 100 mls/hr IV ASDIRECTED [facility] Last Admin: 03/09/19 03:26 Dose: 100 mls/hr Dextrose/Lactated Ringer's (Dextrose 5%-Lactated Ringers) 1,000 mls @ 100 mls/ hr IV ASDIRECTED [facility] Stop: 03/12/19 11:59 Last Admin: 03/11/19 23:35 Dose: 100 mls/hr Ampicillin Sodium/Sulbactam (Sodium 3 gm/ Sodium Chloride) 100 mls @ 200 mls/ hr IV Q6H [facility] Last Admin: 03/13/19 05:19 Dose: 200 mls/hr Aztreonam 1 gm/ Sodium (Chloride) 50 mls @ 100 mls/hr IV Q8H [facility] Last Admin: 03/13/19 04:23 Dose: 100 mls/hr Potassium Chloride 20 meq/Lidocaine HCl 2 ml/ Sodium Chloride 112 mls @ 56 mls/ hr IV Q2H [facility] Stop: 03/09/19 15:59 Last Admin: 03/09/19 17:30 Dose: 56 mls/hr Lactated Ringer's (Ringers, Lactated) 750 mls @ 750 mls/hr IV BOLUS ONE Stop: 03/09/19 16:25 Last Admin: 03/09/19 15:53 Dose: 750 mls/hr Lactated Ringer's (Ringers, Lactated) 750 mls @ 999 mls/hr IV BOLUS ONE Stop: 03/09/19 21:15 Last Admin: 03/09/19 21:08 Dose: 999 mls/hr Heparin Sodium (Porcine) 5,000 (units/ Sodium Chloride) 501 mls @ 5 mls/hr IV ASDIRECTED [facility] Last Admin: 03/12/19 13:58 Dose: 5 mls/hr Propofol (Diprivan 100 Ml) 100 mls @ 2.191 mls/hr IV TITRATE [facility]; Protocol Last Titration: 03/15/19 07:18 Dose: 0 mcg/kg/min, 0 mls/hr Linezolid 600 mg/ Premix 300 mls @ 300 mls/hr IV Q12H [facility] Last Admin: 03/11/19 21:53 Dose: 300 mls/hr Potassium Chloride 20 meq/Lidocaine HCl 2 ml/ Sodium Chloride 112 mls @ 56 mls/ hr IV Q2H [facility] Stop: 03/10/19 16:29 Last Admin: 03/10/19 16:07 Dose: 56 mls/hr Potassium Chloride 20 meq/ (Premix) 0 mls @ 50 mls/hr IV Q2H [facility] Stop: 03/11/19 07:28 Last Admin: 03/11/19 07:32 Dose: 50 mls/hr Magnesium Sulfate 2 gm/ Premix 50 mls @ 25 mls/hr IV Q6H [facility] Last Admin: 03/12/19 04:27 Dose: 25 mls/hr Potassium Phosphate 20 mmole/ (Sodium Chloride) 256.6667 mls @ 85 mls/hr IV Q3H [facility] Stop: 03/11/19 17:59 Last Admin: 03/11/19 14:42 Dose: 85 mls/hr Multivitamins/Minerals 10 ml/Chromium/Copper/Manganese/Seleni/Zn 1 ml/ Amino Ac/ Electrol/Dextrose/Calcium 1,011 mls @ 82 mls/hr IV .BY DURATION [facility] Last Admin: 03/13/19 12:34 Dose: 82 mls/hr Amino Ac/Electrol/Dextrose/Calcium (Clinimix E 5/15) 1,000 mls @ 82 mls/hr IV .BY DURATION [facility] Last Admin: 03/14/19 01:20 Dose: 82 mls/hr Sodium Chloride (Normal Saline) 1,000 mls @ 20 mls/hr IV ASDIRECTED [facility] Last Admin: 03/13/19 22:58 Dose: 20 mls/hr Potassium Phosphate 20 mmole/ (Sodium Chloride) 256.6667 mls @ 85.556 mls/hr IV Q3H [facility] Stop: 03/12/19 16:59 Last Admin: 03/12/19 14:49 Dose: 85.556 mls/hr Potassium Chloride 20 meq/ (Premix) 100 mls @ 50 mls/hr IV ONETIME ONE Stop: 03/13/19 10:59 Last Admin: 03/13/19 09:29 Dose: 50 mls/hr Potassium Phosphate 30 mmole/ (Sodium Chloride) 110 mls @ 30 mls/hr IV ONETIME ONE Stop: 03/13/19 14:39 Last Admin: 03/13/19 12:14 Dose: 30 mls/hr Magnesium Sulfate 2 gm/ Premix 50 mls @ 25 mls/hr IV Q6H [facility] Stop: 03/16/19 03:59 Last Admin: 03/16/19 01:59 Dose: 25 mls/hr Azithromycin 250 mg/ Sodium (Chloride) 150 mls @ 150 mls/hr IV Q12H [facility] Azithromycin 250 mg/ Sodium (Chloride) 150 mls @ 150 mls/hr IV Q24H [facility] Last Admin: 03/17/19 11:28 Dose: 150 mls/hr Multivitamins/Minerals 10 ml/Chromium/Copper/Manganese/Seleni/Zn 1 ml/ Amino Ac/ Electrol/Dextrose/Calcium 1,011 mls @ 82 mls/hr IV .BY DURATION [facility] Stop: 03/18/19 14:59 Last Admin: 03/17/19 14:26 Dose: 82 mls/hr Amino Ac/Electrol/Dextrose/Calcium (Clinimix E 5/15) 1,000 mls @ 82 mls/hr IV .BY DURATION [facility] Stop: 03/18/19 14:59 Last Admin: 03/18/19 03:38 Dose: 82 mls/hr Multivitamins/Minerals 10 ml/Chromium/Copper/Manganese/Seleni/Zn 1 ml/ Amino Ac/ Electrol/Dextrose/Calcium 1,011 mls @ 80 mls/hr IV .BY DURATION [facility] Last Admin: 03/18/19 16:05 Dose: 40 mls/hr Amino Ac/Electrol/Dextrose/Calcium (Clinimix E 5/15) 1,000 mls @ 40 mls/hr IV .BY DURATION [facility] Piperacillin Sod/Tazobactam (Sod 3.375 gm/ Sodium Chloride) 50 mls @ 100 mls/ hr IV Q6H [facility] Last Admin: 03/19/19 04:17 Dose: 100 mls/hr Sodium Chloride (Normal Saline) Confirm Administered Dose 50 mls @ as directed .ROUTE .STK-MED ONE Stop: 03/18/19 21:35 Last Admin: 03/18/19 21:40 Dose: Not Given Propofol (Diprivan 100 Ml) Confirm Administered Dose 100 mls @ as directed .ROUTE .STK-MED ONE Stop: 03/18/19 23:04 Last Admin: 03/19/19 01:04 Dose: Not Given Sodium Chloride (Normal Saline) 500 mls @ 999 mls/hr IV .BOLUS ONE Stop: 03/19/19 00:00 Last Admin: 03/19/19 00:00 Dose: 999 mls/hr Sodium Chloride (Normal Saline) 100 mls @ 4 mls/sec IV ASDIRECTED [facility] Stop: 03/19/19 10:00 Last Admin: 03/19/19 07:45 Dose: 4 mls/sec Insulin Glargine (Lantus Solostar) 10 units SUBCUT BID [facility] Last Admin: 03/16/19 09:27 Dose: 10 unit Insulin Glargine (Lantus Solostar) 14 units SUBCUT BID [facility] Last Admin: 03/18/19 09:06 Dose: 14 units Insulin Glargine (Lantus Solostar) 7 units SUBCUT BID [facility] Stop: 03/18/19 21:01 Last Admin: 03/18/19 21:25 Dose: Not Given Insulin Human Lispro (Humalog) 0 unit SUBCUT Q6H PRN; Protocol PRN Reason: MEDIUM CORRECTIONAL DOSING Last Admin: 03/14/19 17:42 Dose: 7 units Insulin Human Lispro (Humalog) 15 unit SUBCUT ONETIME ONE Stop: 03/14/19 12:05 Last Admin: 03/14/19 12:10 Dose: 15 units Insulin Human Lispro (Humalog) 0 unit SUBCUT ONETIME ONE Stop: 03/15/19 00:16 Last Admin: 03/15/19 00:25 Dose: 12 units Iopamidol (Isovue-370 (76%)) 100 ml IV . DIRECTED [facility] Stop: 03/19/19 10:00 Last Admin: 03/19/19 07:45 Dose: 100 ml Lidocaine HCl (Xylocaine-Mpf 1%) 5 ml INJECT ONETIME ONE Stop: 03/11/19 05:30 Last Admin: 03/11/19 05:39 Dose: 2 ml Lidocaine/Epinephrine (Xylocaine 1% With Epinephrine 1:100,000) Confirm Administered Dose 50 ml .ROUTE .STK-MED ONE Stop: 03/10/19 06:23 Lidocaine/Epinephrine (Xylocaine 1% With Epinephrine 1:100,000) Confirm Administered Dose 50 ml .ROUTE .STK-MED ONE Stop: 03/11/19 07:19 Last Admin: 03/11/19 07:28 Dose: 15 ml Linezolid (Zyvox) 600 mg IRR .STK-MED ONE Stop: 03/11/19 07:39 Last Admin: 03/11/19 07:38 Dose: 600 mg Lorazepam (Ativan) 0.5 mg IVPUSH BID [facility] Last Admin: 03/09/19 09:09 Dose: 0.5 mg Lorazepam (Ativan) 0.25 mg IVPUSH BID [facility] Last Admin: 03/10/19 09:09 Dose: 0.25 mg Meropenem (Merrem) Confirm Administered Dose 500 mg .ROUTE .STK-MED ONE Stop: 03/08/19 12:05 Last Admin: 03/08/19 14:00 Dose: 500 mg Meropenem (Merrem) Confirm Administered Dose 500 mg .ROUTE .STK-MED ONE Stop: 03/10/19 06:23 Meropenem (Merrem) Confirm Administered Dose 500 mg .ROUTE .STK-MED ONE Stop: 03/11/19 06:45 Last Admin: 03/11/19 07:38 Dose: 500 mg Neostigmine Methylsulfate (Neostigmine) Confirm Administered Dose 5 mg .ROUTE .STK-MED ONE Stop: 03/08/19 12:18 Ondansetron HCl (Zofran) Confirm Administered Dose 4 mg .ROUTE .STK-MED ONE Stop: 03/08/19 12:18 Ondansetron HCl (Zofran) 4 mg IVPUSH Q6H PRN PRN Reason: Nausea/Vomiting Piperacillin Sod/Tazobactam Sod (Zosyn) Confirm Administered Dose 3.375 gm .ROUTE .STK-MED ONE Stop: 03/18/19 21:34 Last Admin: 03/18/19 21:40 Dose: Not Given Propofol (Diprivan 20 Ml) Confirm Administered Dose 200 mg .ROUTE .STK-MED ONE Stop: 03/08/19 12:18 Propofol (Diprivan 20 Ml) Confirm Administered Dose 200 mg .ROUTE .STK-MED ONE Stop: 03/10/19 07:33 Rocuronium [place] (Zemuron) Confirm Administered Dose 50 mg .ROUTE .STK-MED ONE Stop: 03/08/19 12:18 Succinylcholine Chloride (Quelicin) Confirm Administered Dose 200 mg .ROUTE .STK -MED ONE Stop: 03/08/19 12:18 Succinylcholine Chloride (Quelicin) Confirm Administered Dose 200 mg .ROUTE .STK -MED ONE Stop: 03/10/19 07:33 - Exam Quality Assessment: Supplemental Oxygen (Ventilator), Central Line/PICC, Urine Catheter, DVT Prophylaxis General: Sedated, Lethargic Lungs: Clear to Auscultation, Normal Respiratory Effort Cardiovascular: Regular Rate, Regular Rhythm, No Murmurs GI/Abdominal Exam: Soft, No Organomegaly, Tender. No: Distended, Guarding, Rigid, Rebound Extremities: Non-Tender, No Pedal Edema Skin: Warm, Dry, Intact - Problem List Review Problem List Initiated/Reviewed/Updated: Yes - My Orders Last 24 Hours: My Active Orders 03/18/19 19:13 Nasogastric Orogastric Tube Insertion [OM.PC] Routine 03/18/19 22:00 methylPREDNISolone Sod Succ [Solu-MEDROL] 40 mg IVPUSH Q6H 03/18/19 23:18 Mechanical Ventilation [RT Ventilator, Adult] [RC] ASDIRECTED 03/18/19 23:20 RASS Sedation Scale [RC] ASDIRECTED Desired Level of Sedation (RASS) [AST] Click to Edit 03/18/19 23:30 Propofol [Diprivan 100 ML] 100 ml IV TITRATE 03/19/19 00:00 Insert Rodriguez Catheter [Insert Urinary Catheter] [OM.PC] Q24H 03/19/19 00:30 Sodium Chloride 0.9% [Normal Saline] 1,000 ml IV ASDIRECTED 03/19/19 00:52 Arterial Line Assessment [RC] Q12H Arterial Line Insertion [OM.PC] Routine Arterial Line Management [OM.PC] Routine 03/19/19 01:00 Heparin Sodium 5,000 units Sodium Chloride 0.9% [Normal Saline] 500 ml IV ASDIRECTED 03/19/19 02:13 Urinary Catheter Assessment [RC] Q12H 03/19/19 10:00 Piperacillin/Tazobactam/Dext [Zosyn in Dextrose Iso-Osmotic 3.375 GM] 3.375 gm Premix Bag 1 bag IV Q6H 03/19/19 Breakfast NPO Now [Nothing per Oral Now Diet] [DIET] 03/20/19 05:00 Abdomen 2V AP Upright Decub [CR] Timed Chest 1V Frontal [CR] DAILY BLOOD GAS ARTERIAL [BG] Timed CBC WITH AUTO DIFF [HEME] Timed COMPREHENSIVE METABOLIC PN,CMP [CHEM] Timed MAGNESIUM [CHEM] Timed PHOSPHORUS [CHEM] Timed 03/21/19 05:00 Chest 1V Frontal [CR] DAILY 03/22/19 05:00 Chest 1V Frontal [CR] DAILY 03/23/19 05:00 Chest 1V Frontal [CR] DAILY 03/24/19 05:00 Chest 1V Frontal [CR] DAILY - Plan Plan:: ASSESSMENT AND PLAN - Small bowel obstruction with pneumatosis - status post emergent laparotomy with small bowel resection and right colectomy 03/08. He did not tolerate diet yesterday developed nausea vomiting. CT scan shows evidence of small bowel obstruction with transition point in the right lower quadrant -Postoperative care per surgical team -He is receiving TPN, 82 mL per hour -Pain control Acute respiratory failure with hypoxia and hypercapnia - secondary to aspiration with vomiting yesterday. Chest x-ray and CT scan show no new obvious infiltrates or evidence of underlying pneumonia. Respiratory status has stabilized since intubation with progressive decrease in FiO2. -Continue current ventilator settings -Zosyn added for empiric coverage with aspiration -Continue Solu-Medrol 40 mg IV every 6 hours and additional 24 hours -Antibiotic coverage with linezolid -Vigorous pulmonary toilet -If stable consider spontaneous breathing trial again in a.m. Type 2 diabetes mellitus-glucose levels improved -Continue glucometers every 6 hours -Regular insulin 15 units added to each liter of TPN -High dose sliding scale Humalog Hypokalemia - potassium level improved with supplementation. -Recheck in the morning Severe schizophrenia - patient is very debilitated because of his psychiatric illness. -Continue low-dose Haldol -Continue regular dose Depakote -low dose lorazepam -Restart oral medications when able Acute kidney injury - resolved -Continue to closely monitor urine output and renal function Maintenance issues - - DVT prophylaxis - mechanical - GI prophylaxis - IV PPI - Nutrition - nothing by mouth, currently receiving TPN for nutritional support - Rodriguez catheter - placed for strict intake and output monitoring with a critical patient Disposition - anticipate discharge home versus more likely the group home
[2019-03-19] MEDS: Pantoprazole 40 MG Vial IV SCH (17:37)
[2019-03-19] MEDS: 1: AA 5%/Calcium/D15W/Lytes 1,000 ML with MVI, Adult with Vitamin K 10 ML, Chromium/Copp IV SCH ×3 (20:34)
[2019-03-19] MEDS: Insulin Glargine,Human Rec. Analog 100 Units/ML 3 ML Pen SUBCUT SCH (21:15)
[2019-03-19] MEDS: Latanoprost 0.005% Ophth Soln 2.5 ML Bottle EYEBOTH SCH (21:20)
[2019-03-20] MEDS: Insulin Lispro 100 Unit/ML 3 ML KwikPen SUBCUT SCH ×5 (00:26→21:36)
[2019-03-20] MEDS: Piperacillin/Tazobactam/Dext 3.375 GM in Premix Bag 1 BAG IV SCH ×4 (04:05→21:38)
[2019-03-20] MEDS: methylPREDNISolone Sodium Succinate 40 MG/1 ML SDV IVPUSH SCH ×2 (04:07→09:50)
[2019-03-20] MEDS: Metoprolol Tartrate 5 MG/5 ML SDV IV SCH ×3 (05:56→17:30)
[2019-03-20] MEDS: Sodium Chloride 5% Ophth Soln 15 ML Bottle EYEBOTH SCH ×4 (05:57→21:39)
--- NOTE | 2019-03-20 05:58 | CRLCR ---
INDICATION: Respiratory failure TECHNIQUE: Frontal view of the chest. COMPARISON: Frontal view of the chest 03/19/2019 FINDINGS/IMPRESSION: There are stable bibasilar opacities, more prominent on the right, likely representing pleural effusions with adjacent atelectasis or infiltrate. The cardiomediastinal silhouette is stable. Endotracheal tube is in stable position with catheter tip approximately 4.7 cm above the yair. Left subclavian central line is also stable with tip at the superior cavoatrial junction. Gastric tube is again noted terminating in the fundus. Dictated by Ary Webber MD @ Mar 20 2019 5:54AM Signed by Dr. Ary Webber @ Mar 20 2019 5:57AM
--- NOTE | 2019-03-20 06:02 | CRLCR ---
INDICATION: Small-bowel obstruction COMPARISON: CT abdomen pelvis with contrast 03/19/2019 TECHNIQUE: Portable supine upright views of the abdomen. FINDINGS:/IMPRESSION: There is paucity of small bowel gas. A single air-filled small bowel loop in the left upper quadrant demonstrates normal distension. A few pockets of air are noted within the descending colon. No pneumoperitoneum is demonstrated on upright view. Surgical agus are noted. Dictated by Ary Webber MD @ Mar 20 2019 5:58AM Signed by Dr. Ary Webber @ Mar 20 2019 6:01AM
--- NOTE | 2019-03-20 07:05 | CRLCR ---
INDICATION: Central line placement TECHNIQUE: Frontal view of the chest. COMPARISON: Single view chest 03/20/2019 5:06 a.m. FINDINGS/IMPRESSION: There is interval placement of right central venous catheter with catheter tip in the right atrium. This can be retracted about 4 cm. Left central venous catheter is in stable position with tip at the cavoatrial junction. Endotracheal tube tip lies approximately 4.6 cm above the yair. Gastric tube is again noted to terminate in the fundus. Bibasilar airspace opacities are similar to prior. Dictated by Ary Webber MD @ Mar 20 2019 7:04AM Signed by Dr. Ary Webber @ Mar 20 2019 7:04AM
[2019-03-20] MEDS: Albuterol/Ipratropium 3.0-0.5 MG/3 ML Neb Soln INH SCH ×4 (07:26→21:41)
[2019-03-20] MEDS: LORazepam 2 MG/ML SDV IVPUSH SCH ×2 (08:22→20:57)
[2019-03-20] MEDS: Haloperidol Lactate 5 MG/ML SDV IVPUSH SCH ×2 (08:26→20:59)
[2019-03-20] MEDS: Docusate Sodium 100 MG Cap PO SCH ×2 (08:49→20:19)
[2019-03-20] MEDS: Levothyroxine 100 MCG Vial IVPUSH SCH (08:50)
[2019-03-20] MEDS: 1: AA 5%/Calcium/D15W/Lytes 1,000 ML with MVI, Adult with Vitamin K 10 ML, Chromium/Copp IV SCH ×6 (08:52→21:04)
[2019-03-20] MEDS: Insulin Glargine,Human Rec. Analog 100 Units/ML 3 ML Pen SUBCUT SCH ×2 (09:48→21:36)
[2019-03-20] MEDS: Linezolid 600 MG in Premix Bag 1 BAG IV SCH (09:52)
--- NOTE | 2019-03-20 10:16 | PCM.PN ---
- General Info Date of Service: 03/20/19 Subjective Update: Mr. Perez has remained fairly stable over the last 24 hours, intermittently does experience desaturation with change in position. He remains sedated and intubated, unable to provide meaningful history concerning symptoms or review of systems. - Patient Data Vitals - Most Recent: Last Vital Signs Temp 98.7 F 03/20/19 10:03 Pulse 84 03/20/19 07:28 Resp 18 03/20/19 10:03 BP 124/55 L 03/20/19 10:03 Pulse Ox 97 03/20/19 10:03 Weight - Most Recent: 174 lb 2.643 oz I&O - Last 24 Hours: Intake & Output 03/19/19 03/20/19 03/20/19 22:59 06:59 14:59 Intake Total 20135 0 Output Total 750 1050 Balance 1264 1035 0 Lab Results Last 24 Hours: Laboratory Results - last 24 hr 03/20/19 03/20/19 03/20/19 Range/Units 05:00 05:45 05:45 WBC 20.4 H (4.5-11.0) K/uL RBC 2.78 L (4.30-5.90) M/uL Hgb 8.2 L (12.0-15.0) g/dL Hct 25.3 L (40.0-54.0) % MCV 91 (80-98) fL MCH 30 (27-31) pg MCHC 32 (32-36) % Plt Count 254 (150-400) K/uL Neut % (Auto) 89 H (36-66) % Lymph % (Auto) 5 L (24-44) % Wilkinson % (Auto) 6 (2-6) % Eos % (Auto) 0 L (2-4) % Baso % (Auto) 0 (0-1) % Puncture Site Line ABG pH 7.466 H (7.350-7.450) ABG pCO2 35.7 (35.0-42.0) mmHg ABG pO2 69.1 L (75.0-100.0) mmHg ABG HCO3 25.4 (22.0-26.0) mmol/L ABG Total CO2 23.8 (23.0-27.0) mmol/L ABG O2 Saturation 93.8 L (95.0-98.0) % ABG O2 Content 10.8 L (15.0-23.0) %vol ABG Base Excess 2.1 mm/L ABG Hemoglobin 8.3 L (13.5-18.0) g/dL ABG Oxyhemoglobin 91.7 % ABG Carboxyhemoglobin 1.1 (0.0-1.6) % ABG Methemoglobin 1.1 % O2 Delivery Device Ventilator Oxygen Flow Rate L Sodium 144 (140-148) mmol/L Potassium 4.2 (3.6-5.2) mmol/L Chloride 109 H (100-108) mmol/L Carbon Dioxide 27 (21-32) mmol/L Anion Gap 12.2 (5.0-14.0) mmol/L BUN 29 H (7-18) mg/dL Creatinine 1.2 (0.8-1.3) mg/dL Est Cr Clr Drug Dosing 56.19 mL/min Estimated GFR (MDRD) > 60 (>60) Glucose 266 H (74-106) mg/dL Calcium 8.3 L (8.5-10.1) mg/dL Phosphorus 4.1 (2.5-4.9) mg/dL Magnesium 2.0 (1.8-2.4) mg/dL Total Bilirubin 0.4 (0.2-1.0) mg/dL AST 15 (15-37) U/L ALT 28 (12-78) U/L Alkaline Phosphatase 114 (46-116) U/L Total Protein 5.3 L (6.4-8.2) g/dL Albumin 1.5 L (3.4-5.0) g/dL Globulin 3.8 H (2.3-3.5) g/dL Albumin/Globulin Ratio 0.4 L (1.2-2.2) Blood Type Gel Antibody Screen Crossmatch 03/20/19 Range/Units 08:10 WBC (4.5-11.0) K/uL RBC (4.30-5.90) M/uL Hgb (12.0-15.0) g/dL Hct (40.0-54.0) % MCV (80-98) fL MCH (27-31) pg MCHC (32-36) % Plt Count (150-400) K/uL Neut % (Auto) (36-66) % Lymph % (Auto) (24-44) % Wilkinson % (Auto) (2-6) % Eos % (Auto) (2-4) % Baso % (Auto) (0-1) % Puncture Site ABG pH (7.350-7.450) ABG pCO2 (35.0-42.0) mmHg ABG pO2 (75.0-100.0) mmHg ABG HCO3 (22.0-26.0) mmol/L ABG Total CO2 (23.0-27.0) mmol/L ABG O2 Saturation (95.0-98.0) % ABG O2 Content (15.0-23.0) %vol ABG Base Excess mm/L ABG Hemoglobin (13.5-18.0) g/dL ABG Oxyhemoglobin % ABG Carboxyhemoglobin (0.0-1.6) % ABG Methemoglobin % O2 Delivery Device Oxygen Flow Rate L Sodium (140-148) mmol/L Potassium (3.6-5.2) mmol/L Chloride (100-108) mmol/L Carbon Dioxide (21-32) mmol/L Anion Gap (5.0-14.0) mmol/L BUN (7-18) mg/dL Creatinine (0.8-1.3) mg/dL Est Cr Clr Drug Dosing mL/min Estimated GFR (MDRD) (>60) Glucose (74-106) mg/dL Calcium (8.5-10.1) mg/dL Phosphorus (2.5-4.9) mg/dL Magnesium (1.8-2.4) mg/dL Total Bilirubin (0.2-1.0) mg/dL AST (15-37) U/L ALT (12-78) U/L Alkaline Phosphatase (46-116) U/L Total Protein (6.4-8.2) g/dL Albumin (3.4-5.0) g/dL Globulin (2.3-3.5) g/dL Albumin/Globulin Ratio (1.2-2.2) Blood Type B POSITIVE Gel Antibody Screen Negative Crossmatch See Detail Med Orders - Current: Current Medications Albuterol (Proventil Neb Soln) 2.5 mg NEB Q4H PRN PRN Reason: Shortness Of Breath/wheezing Last Admin: 03/10/19 00:24 Dose: 2.5 mg Albuterol/Ipratropium (Duoneb 3.0-0.5 Mg/3 Ml) 3 ml INH QIDRT [facility] Last Admin: 03/20/19 07:26 Dose: 3 ml Dextrose (Glutose 15) 15 gm PO ASDIRECTED PRN PRN Reason: HYPOGLYCEMIA Dextrose/Water (Dextrose 50% In Water) 50 ml IVPUSH ASDIRECTED PRN PRN Reason: HYPOGLYCEMIA Diphenhydramine HCl (Benadryl) 25 mg IVPUSH Q4H PRN PRN Reason: Itching Last Admin: 03/18/19 03:20 Dose: 25 mg Docusate Sodium (Colace) 100 mg PO BID [facility] Last Admin: 03/20/19 08:49 Dose: Not Given Glucagon (Glucagen) 1 mg IM ASDIRECTED PRN PRN Reason: HYPOGLYCEMIA Haloperidol Lactate (Haldol) 2 mg IVPUSH Q4H PRN PRN Reason: Agitation Last Admin: 03/18/19 21:57 Dose: 2 mg Haloperidol Lactate (Haldol) 2.5 mg IVPUSH BID [facility] Last Admin: 03/20/19 08:26 Dose: 2.5 mg Heparin Sodium (Porcine) (Heparin Lock Flush 100 Units/Ml) 500 units FLUSH ASDIRECTED PRN PRN Reason: Keep Vein Open Last Admin: 03/20/19 06:39 Dose: 500 units Valproic Acid 500 mg/ Sodium (Chloride) 55 mls @ 55 mls/hr IV Q8H [facility] Last Admin: 03/20/19 04:47 Dose: 55 mls/hr Linezolid 600 mg/ Premix 300 mls @ 300 mls/hr IV Q12H [facility] Last Admin: 03/20/19 09:52 Dose: 300 mls/hr Propofol (Diprivan 100 Ml) 100 mls @ 2.195 mls/hr IV TITRATE [facility]; Protocol Last Admin: 03/20/19 05:57 Dose: 35 mcg/kg/min, 15.364 mls/hr Heparin Sodium (Porcine) 5,000 (units/ Sodium Chloride) 501 mls @ 0.1 mls/hr IV ASDIRECTED [facility] Last Admin: 03/19/19 01:06 Dose: 1 units/hr, 0.1 mls/hr Sodium Chloride (Normal Saline) 1,000 mls @ 20 mls/hr IV ASDIRECTED [facility] Last Admin: 03/19/19 08:13 Dose: 125 mls/hr Piperacillin/Tazobactam/ (Dextrose 3.375 gm/ Premix) 50 mls @ 100 mls/hr IV Q6H [facility] Last Admin: 03/20/19 09:01 Dose: 100 mls/hr Multivitamins/Minerals 10 ml/Chromium/Copper/Manganese/Seleni/Zn 1 ml/ Amino Ac/ Electrol/Dextrose/Calcium 1,011 mls @ 82 mls/hr IV .BY DURATION [facility] Last Admin: 03/19/19 20:34 Dose: 82 mls/hr Amino Ac/Electrol/Dextrose/Calcium (Clinimix E 12/08) 1,000 mls @ 82 mls/hr IV .BY DURATION [facility] Last Admin: 03/20/19 08:52 Dose: 82 mls/hr Albumin Human (Albumin 25%) 25 gm in 100 mls @ 25 mls/hr IV Q24H [facility] Stop: 03/23/19 11:59 Last Admin: 03/20/19 08:45 Dose: 25 mls/hr Albumin Human (Albumin 25%) 25 gm in 100 mls @ 25 mls/hr IV Q24H [facility] Stop: 03/23/19 15:59 Insulin Glargine (Lantus Solostar) 12 units SUBCUT BID [facility] Last Admin: 03/20/19 09:48 Dose: 12 units Insulin Human Lispro (Humalog) 0 unit SUBCUT ASDIRECTED [facility]; Protocol Last Admin: 03/20/19 06:09 Dose: 9 units Latanoprost (Xalatan 0.005% Ophth Soln) 0 ml EYEBOTH BEDTIME [facility] Last Admin: 03/19/19 21:20 Dose: 1 drop Levothyroxine Sodium (Synthroid) 100 mcg IVPUSH DAILY [facility] Last Admin: 03/20/19 08:50 Dose: 100 mcg Lorazepam (Ativan) 0.5 mg IVPUSH Q4H PRN PRN Reason: Anxiety Last Admin: 03/18/19 22:19 Dose: 0.5 mg Lorazepam (Ativan) 0.5 mg IVPUSH BID [facility] Last Admin: 03/20/19 08:22 Dose: 0.5 mg Methylprednisolone Sodium Succinate (Solu-Medrol) 40 mg IVPUSH Q6H [facility] Last Admin: 03/20/19 09:50 Dose: 40 mg Metoprolol Tartrate (Lopressor) 5 mg IV Q6H [facility] Last Admin: 03/20/19 05:56 Dose: 5 mg Naloxone HCl (Narcan) 0.1 mg IV ASDIRECTED PRN PRN Reason: decreased respiratory rate Ondansetron HCl (Zofran) 4 mg IVPUSH Q4H PRN PRN Reason: Nausea/Vomiting Last Admin: 03/18/19 17:31 Dose: 4 mg Pantoprazole Sodium (Protonix Iv) 40 mg IV Q24H [facility] Last Admin: 03/19/19 17:37 Dose: 40 mg Sodium Chloride (Joseph 128 5% Ophth Soln) 0 ml EYEBOTH QID [facility] Last Admin: 03/20/19 09:50 Dose: 1 drop Discontinued Medications Acetylcysteine (Mucomyst 20%) 400 mg INH BIDRT [facility] Last Admin: 03/12/19 07:48 Dose: 200 mg Acetylcysteine (Mucomyst 20%) 200 mg INH BIDRT [facility] Stop: 03/12/19 23:59 Last Admin: 03/12/19 20:44 Dose: 200 mg Bisacodyl (Dulcolax) 10 mg PO BID [facility] Last Admin: 03/17/19 20:35 Dose: Not Given Bisacodyl (Dulcolax) 10 mg RECTAL ONETIME ONE Stop: 03/17/19 17:01 Last Admin: 03/17/19 17:10 Dose: 10 mg Bupivacaine HCl (Marcaine 0.5%) Confirm Administered Dose 50 ml .ROUTE .STK-MED ONE Stop: 03/10/19 06:23 Bupivacaine HCl (Marcaine 0.5%) Confirm Administered Dose 50 ml .ROUTE .STK-MED ONE Stop: 03/11/19 07:19 Last Admin: 03/11/19 07:28 Dose: 15 ml Ropivacaine 36 ml/Dexamethasone 8 mg/Epinephrine HCl 0.4 mg/ Sodium Chloride 41.6 ml 0 ml NERVRT ASDIRECTED [facility] Last Admin: 03/08/19 15:05 Dose: 80 syringe Ropivacaine 36 ml/Dexamethasone 8 mg/Epinephrine HCl 0.4 mg/ Sodium Chloride 41.6 ml 0 ml NERVRT ASDIRECTED [facility] Last Admin: 03/11/19 07:41 Dose: 80 syringe Dexamethasone (Dexamethasone) Confirm Administered Dose 4 mg .ROUTE .STK-MED ONE Stop: 03/08/19 12:18 Diphenhydramine HCl (Benadryl) 25 mg IVPUSH Q6H PRN PRN Reason: Itching Diphenhydramine HCl (Benadryl) 25 mg PO Q6H PRN PRN Reason: Itching Fentanyl (Sublimaze) Confirm Administered Dose 250 mcg .ROUTE .STK-MED ONE Stop: 03/08/19 12:19 Furosemide (Lasix) 20 mg IVPUSH ONETIME ONE Stop: 03/09/19 21:56 Last Admin: 03/09/19 22:10 Dose: 20 mg Furosemide (Lasix) Confirm Administered Dose 20 mg .ROUTE .STK-MED ONE Stop: 03/09/19 22:05 Last Admin: 03/09/19 22:10 Dose: Not Given Furosemide (Lasix) 20 mg IVPUSH ONETIME ONE Stop: 03/10/19 06:33 Last Admin: 03/10/19 07:20 Dose: 20 mg Furosemide (Lasix) 20 mg IVPUSH ONETIME ONE Stop: 03/12/19 18:01 Last Admin: 03/12/19 17:43 Dose: 20 mg Furosemide (Lasix) 20 mg IVPUSH ONETIME ONE Stop: 03/12/19 07:31 Last Admin: 03/12/19 07:44 Dose: 20 mg Furosemide (Lasix) 10 mg IVPUSH Q12H [facility] Stop: 03/13/19 21:01 Last Admin: 03/13/19 20:29 Dose: 10 mg Furosemide (Lasix) 20 mg IVPUSH NOW ONE Stop: 03/15/19 11:31 Last Admin: 03/15/19 11:38 Dose: 20 mg Furosemide (Lasix) 20 mg IVPUSH ONETIME ONE Stop: 03/16/19 13:31 Last Admin: 03/16/19 14:18 Dose: 20 mg Furosemide (Lasix) 20 mg IVPUSH NOW ONE Stop: 03/17/19 09:16 Last Admin: 03/17/19 09:47 Dose: 20 mg Glycopyrrolate (Robinul) Confirm Administered Dose 1 mg .ROUTE .STK-MED ONE Stop: 03/08/19 12:18 Haloperidol Lactate (Haldol) 5 mg IVPUSH BID [facility] Last Admin: 03/09/19 09:06 Dose: 5 mg Heparin Sodium (Porcine) (Heparin Sodium) Confirm Administered Dose 5,000 units .ROUTE .[facility] ONE Stop: 03/10/19 07:04 Last Admin: 03/10/19 07:57 Dose: Not Given Heparin Sodium (Porcine) (Heparin Lock Flush 100 Units/Ml) Confirm Administered Dose 1,000 units .ROUTE .[facility] ONE Stop: 03/11/19 07:32 Last Admin: 03/11/19 08:31 Dose: Not Given Heparin Sodium (Porcine) (Heparin Sodium) Confirm Administered Dose 5,000 units .ROUTE .[facility] ONE Stop: 03/18/19 23:03 Last Admin: 03/19/19 02:36 Dose: Not Given Hydromorphone HCl (Dilaudid [employer] 15 Mg In Ns 30 Ml) 0 mg IV ASDIRECTED PRN; Protocol PRN Reason: PAIN Last Admin: 03/16/19 16:43 Dose: 15 mg Sodium Chloride (Normal Saline) 1,000 mls @ 1,000 mls/hr IV ASDIRECTED [facility] Last Admin: 03/08/19 10:02 Dose: 1,000 mls/hr Ampicillin Sodium/Sulbactam (Sodium 1.5 gm/ Sodium Chloride) 50 mls @ 100 mls/ hr IV Q6H [facility] Last Admin: 03/08/19 13:30 Dose: 100 mls/hr Aztreonam 1 gm/ Sodium (Chloride) 50 mls @ 100 mls/hr IV Q12H [facility] Last Admin: 03/08/19 13:30 Dose: 100 mls/hr Lactated Ringer's (Ringers, Lactated) 1,000 mls @ 150 mls/hr IV ASDIRECTED [facility] Last Admin: 03/08/19 13:31 Dose: 150 mls/hr Lactated Ringer's (Ringers, Lactated) Confirm Administered Dose 1,000 mls @ as directed .ROUTE .[facility] ONE Stop: 03/08/19 15:16 Lactated Ringer's (Ringers, Lactated) 1,000 mls @ 100 mls/hr IV ASDIRECTED [facility] Last Admin: 03/09/19 03:26 Dose: 100 mls/hr Dextrose/Lactated Ringer's (Dextrose 5%-Lactated Ringers) 1,000 mls @ 100 mls/ hr IV ASDIRECTED [facility] Stop: 03/12/19 11:59 Last Admin: 03/11/19 23:35 Dose: 100 mls/hr Ampicillin Sodium/Sulbactam (Sodium 3 gm/ Sodium Chloride) 100 mls @ 200 mls/ hr IV Q6H [facility] Last Admin: 03/13/19 05:19 Dose: 200 mls/hr Aztreonam 1 gm/ Sodium (Chloride) 50 mls @ 100 mls/hr IV Q8H [facility] Last Admin: 03/13/19 04:23 Dose: 100 mls/hr Potassium Chloride 20 meq/Lidocaine HCl 2 ml/ Sodium Chloride 112 mls @ 56 mls/ hr IV Q2H [facility] Stop: 03/09/19 15:59 Last Admin: 03/09/19 17:30 Dose: 56 mls/hr Lactated Ringer's (Ringers, Lactated) 750 mls @ 750 mls/hr IV [facility] ONE Stop: 03/09/19 16:25 Last Admin: 03/09/19 15:53 Dose: 750 mls/hr Lactated Ringer's (Ringers, Lactated) 750 mls @ 999 mls/hr IV [facility] ONE Stop: 03/09/19 21:15 Last Admin: 03/09/19 21:08 Dose: 999 mls/hr Heparin Sodium (Porcine) 5,000 (units/ Sodium Chloride) 501 mls @ 5 mls/hr IV ASDIRECTED [facility] Last Admin: 03/12/19 13:58 Dose: 5 mls/hr Propofol (Diprivan 100 Ml) 100 mls @ 2.191 mls/hr IV TITRATE [facility]; Protocol Last Titration: 03/15/19 07:18 Dose: 0 mcg/kg/min, 0 mls/hr Linezolid 600 mg/ Premix 300 mls @ 300 mls/hr IV Q12H [facility] Last Admin: 03/11/19 21:53 Dose: 300 mls/hr Potassium Chloride 20 meq/Lidocaine HCl 2 ml/ Sodium Chloride 112 mls @ 56 mls/ hr IV Q2H [facility] Stop: 03/10/19 16:29 Last Admin: 03/10/19 16:07 Dose: 56 mls/hr Potassium Chloride 20 meq/ (Premix) 0 mls @ 50 mls/hr IV Q2H [facility] Stop: 03/11/19 07:28 Last Admin: 03/11/19 07:32 Dose: 50 mls/hr Magnesium Sulfate 2 gm/ Premix 50 mls @ 25 mls/hr IV Q6H [facility] Last Admin: 03/12/19 04:27 Dose: 25 mls/hr Potassium Phosphate 20 mmole/ (Sodium Chloride) 256.6667 mls @ 85 mls/hr IV Q3H [facility] Stop: 03/11/19 17:59 Last Admin: 03/11/19 14:42 Dose: 85 mls/hr Multivitamins/Minerals 10 ml/Chromium/Copper/Manganese/Seleni/Zn 1 ml/ Amino Ac/ Electrol/Dextrose/Calcium 1,011 mls @ 82 mls/hr IV .BY DURATION [facility] Last Admin: 03/13/19 12:34 Dose: 82 mls/hr Amino Ac/Electrol/Dextrose/Calcium (Clinimix E 5/15) 1,000 mls @ 82 mls/hr IV .BY DURATION [facility] Last Admin: 03/14/19 01:20 Dose: 82 mls/hr Sodium Chloride (Normal Saline) 1,000 mls @ 20 mls/hr IV ASDIRECTED [facility] Last Admin: 03/13/19 22:58 Dose: 20 mls/hr Potassium Phosphate 20 mmole/ (Sodium Chloride) 256.6667 mls @ 85.556 mls/hr IV Q3H [facility] Stop: 03/12/19 16:59 Last Admin: 03/12/19 14:49 Dose: 85.556 mls/hr Potassium Chloride 20 meq/ (Premix) 100 mls @ 50 mls/hr IV ONETIME ONE Stop: 03/13/19 10:59 Last Admin: 03/13/19 09:29 Dose: 50 mls/hr Potassium Phosphate 30 mmole/ (Sodium Chloride) 110 mls @ 30 mls/hr IV ONETIME ONE Stop: 03/13/19 14:39 Last Admin: 03/13/19 12:14 Dose: 30 mls/hr Magnesium Sulfate 2 gm/ Premix 50 mls @ 25 mls/hr IV Q6H [facility] Stop: 03/16/19 03:59 Last Admin: 03/16/19 01:59 Dose: 25 mls/hr Azithromycin 250 mg/ Sodium (Chloride) 150 mls @ 150 mls/hr IV Q12H [facility] Azithromycin 250 mg/ Sodium (Chloride) 150 mls @ 150 mls/hr IV Q24H [facility] Last Admin: 03/17/19 11:28 Dose: 150 mls/hr Multivitamins/Minerals 10 ml/Chromium/Copper/Manganese/Seleni/Zn 1 ml/ Amino Ac/ Electrol/Dextrose/Calcium 1,011 mls @ 82 mls/hr IV .BY DURATION [facility] Stop: 03/18/19 14:59 Last Admin: 03/17/19 14:26 Dose: 82 mls/hr Amino Ac/Electrol/Dextrose/Calcium (Clinimix E 5/15) 1,000 mls @ 82 mls/hr IV .BY DURATION [facility] Stop: 03/18/19 14:59 Last Admin: 03/18/19 03:38 Dose: 82 mls/hr Multivitamins/Minerals 10 ml/Chromium/Copper/Manganese/Seleni/Zn 1 ml/ Amino Ac/ Electrol/Dextrose/Calcium 1,011 mls @ 80 mls/hr IV .BY DURATION [facility] Last Admin: 03/18/19 16:05 Dose: 40 mls/hr Amino Ac/Electrol/Dextrose/Calcium (Clinimix E 5/15) 1,000 mls @ 40 mls/hr IV .BY DURATION [facility] Piperacillin Sod/Tazobactam (Sod 3.375 gm/ Sodium Chloride) 50 mls @ 100 mls/ hr IV Q6H [facility] Last Admin: 03/19/19 04:17 Dose: 100 mls/hr Sodium Chloride (Normal Saline) Confirm Administered Dose 50 mls @ as directed .ROUTE .STK-MED ONE Stop: 03/18/19 21:35 Last Admin: 03/18/19 21:40 Dose: Not Given Propofol (Diprivan 100 Ml) Confirm Administered Dose 100 mls @ as directed .ROUTE .STK-MED ONE Stop: 03/18/19 23:04 Last Admin: 03/19/19 01:04 Dose: Not Given Sodium Chloride (Normal Saline) 500 mls @ 999 mls/hr IV .[facility] ONE Stop: 03/19/19 00:00 Last Admin: 03/19/19 00:00 Dose: 999 mls/hr Sodium Chloride (Normal Saline) 100 mls @ 4 mls/sec IV ASDIRECTED [facility] Stop: 03/19/19 10:00 Last Admin: 03/19/19 07:45 Dose: 4 mls/sec Multivitamins/Minerals 10 ml/Chromium/Copper/Manganese/Seleni/Zn 1 ml/ Amino Ac/ Electrol/Dextrose/Calcium 1,011 mls @ 80 mls/hr IV .BY DURATION [facility] Stop: 03/19/19 20:00 Amino Ac/Electrol/Dextrose/Calcium (Clinimix E 5/15) 1,000 mls @ 80 mls/hr IV .BY DURATION [facility] Stop: 03/19/19 20:00 Last Admin: 03/19/19 08:12 Dose: 80 mls/hr Insulin Glargine (Lantus Solostar) 10 units SUBCUT BID [facility] Last Admin: 03/16/19 09:27 Dose: 10 unit Insulin Glargine (Lantus Solostar) 14 units SUBCUT BID [facility] Last Admin: 03/18/19 09:06 Dose: 14 units Insulin Glargine (Lantus Solostar) 7 units SUBCUT BID [facility] Stop: 03/18/19 21:01 Last Admin: 03/18/19 21:25 Dose: Not Given Insulin Human Lispro (Humalog) 0 unit SUBCUT Q6H PRN; Protocol PRN Reason: MEDIUM CORRECTIONAL DOSING Last Admin: 03/14/19 17:42 Dose: 7 units Insulin Human Lispro (Humalog) 15 unit SUBCUT ONETIME ONE Stop: 03/14/19 12:05 Last Admin: 03/14/19 12:10 Dose: 15 units Insulin Human Lispro (Humalog) 0 unit SUBCUT ONETIME ONE Stop: 03/15/19 00:16 Last Admin: 03/15/19 00:25 Dose: 12 units Iopamidol (Isovue-370 (76%)) 100 ml IV . DIRECTED [facility] Stop: 03/19/19 10:00 Last Admin: 03/19/19 07:45 Dose: 100 ml Lidocaine HCl (Xylocaine-Mpf 1%) 5 ml INJECT ONETIME ONE Stop: 03/11/19 05:30 Last Admin: 03/11/19 05:39 Dose: 2 ml Lidocaine/Epinephrine (Xylocaine 1% With Epinephrine 1:100,000) Confirm Administered Dose 50 ml .ROUTE .STK-MED ONE Stop: 03/10/19 06:23 Lidocaine/Epinephrine (Xylocaine 1% With Epinephrine 1:100,000) Confirm Administered Dose 50 ml .ROUTE .STK-MED ONE Stop: 03/11/19 07:19 Last Admin: 03/11/19 07:28 Dose: 15 ml Linezolid (Zyvox) 600 mg IRR .STK-MED ONE Stop: 03/11/19 07:39 Last Admin: 03/11/19 07:38 Dose: 600 mg Lorazepam (Ativan) 0.5 mg IVPUSH BID [facility] Last Admin: 03/09/19 09:09 Dose: 0.5 mg Lorazepam (Ativan) 0.25 mg IVPUSH BID [facility] Last Admin: 03/10/19 09:09 Dose: 0.25 mg Meropenem (Merrem) Confirm Administered Dose 500 mg .ROUTE .STK-MED ONE Stop: 03/08/19 12:05 Last Admin: 03/08/19 14:00 Dose: 500 mg Meropenem (Merrem) Confirm Administered Dose 500 mg .ROUTE .STK-MED ONE Stop: 03/10/19 06:23 Meropenem (Merrem) Confirm Administered Dose 500 mg .ROUTE .STK-MED ONE Stop: 03/11/19 06:45 Last Admin: 03/11/19 07:38 Dose: 500 mg Neostigmine Methylsulfate (Neostigmine) Confirm Administered Dose 5 mg .ROUTE .STK-MED ONE Stop: 03/08/19 12:18 Ondansetron HCl (Zofran) Confirm Administered Dose 4 mg .ROUTE .STK-MED ONE Stop: 03/08/19 12:18 Ondansetron HCl (Zofran) 4 mg IVPUSH Q6H PRN PRN Reason: Nausea/Vomiting Piperacillin Sod/Tazobactam Sod (Zosyn) Confirm Administered Dose 3.375 gm .ROUTE .STK-MED ONE Stop: 03/18/19 21:34 Last Admin: 03/18/19 21:40 Dose: Not Given Propofol (Diprivan 20 Ml) Confirm Administered Dose 200 mg .ROUTE .STK-MED ONE Stop: 03/08/19 12:18 Propofol (Diprivan 20 Ml) Confirm Administered Dose 200 mg .ROUTE .STK-MED ONE Stop: 03/10/19 07:33 Rocuronium Funk (Zemuron) Confirm Administered Dose 50 mg .ROUTE .STK-MED ONE Stop: 03/08/19 12:18 Succinylcholine Chloride (Quelicin) Confirm Administered Dose 200 mg .ROUTE .STK -MED ONE Stop: 03/08/19 12:18 Succinylcholine Chloride (Quelicin) Confirm Administered Dose 200 mg .ROUTE .STK -MED ONE Stop: 03/10/19 07:33 - Exam Quality Assessment: Supplemental Oxygen, Central Line/PICC, Urine Catheter, DVT Prophylaxis General: Alert, Sedated, Lethargic Lungs: Clear to Auscultation, Normal Respiratory Effort Cardiovascular: Regular Rate, Regular Rhythm, No Murmurs GI/Abdominal Exam: Soft, Non-Tender, No Organomegaly, No Distention Extremities: Non-Tender, No Pedal Edema - Problem List Review Problem List Initiated/Reviewed/Updated: Yes - My Orders Last 24 Hours: My Active Orders 03/19/19 10:00 Piperacillin/Tazobactam/Dext [Zosyn in Dextrose Iso-Osmotic 3.375 GM] 3.375 gm Premix Bag 1 bag IV Q6H 03/19/19 21:00 Insulin Glarg,Human.Rec.Analog [LantUS Solostar] 12 units SUBCUT BID 03/20/19 00:00 Insert Rodriguez Catheter [Insert Urinary Catheter] [OM.PC] Q24H 03/21/19 05:00 Chest 1V Frontal [CR] DAILY 03/22/19 05:00 Chest 1V Frontal [CR] DAILY 03/23/19 05:00 Chest 1V Frontal [CR] DAILY 03/24/19 05:00 Chest 1V Frontal [CR] DAILY - Plan Plan:: ASSESSMENT AND PLAN - Small bowel obstruction with pneumatosis - status post emergent laparotomy with small bowel resection and right colectomy 03/08. Persistent small bowel obstruction right lower quadrant identified on CT scan yesterday -Postoperative care per surgical team -He is receiving TPN, 82 mL per hour -Pain control -Azithromycin 250 [address] Monae Acute respiratory failure with hypoxia and hypercapnia - secondary to aspiration with vomiting 03/18. Chest x-ray and CT scan show no new obvious infiltrates or evidence of underlying pneumonia. Respiratory status has stabilized since intubation, tolerating decrease in FiO2. Continues to experience some desaturations with change in position -Continue current ventilator settings -Zosyn added for empiric coverage with aspiration -Discontinue Solu-Medrol -Antibiotic coverage with linezolid -Vigorous pulmonary toilet -If stable consider spontaneous breathing trial in a.m. Type 2 diabetes mellitus-glucose levels improved -Continue glucometers every 6 hours -Regular insulin 15 units added to each liter of TPN -High dose sliding scale Humalog Hypokalemia - potassium level improved with supplementation. -Recheck in the morning Severe schizophrenia - patient is very debilitated because of his psychiatric illness. -Continue low-dose Haldol -Continue regular dose Depakote -low dose lorazepam -Restart oral medications when able Acute kidney injury - resolved -Continue to closely monitor urine output and renal function Maintenance issues - - DVT prophylaxis - mechanical - GI prophylaxis - IV PPI - Nutrition - nothing by mouth, currently receiving TPN for nutritional support - Rodriguez catheter - placed for strict intake and output monitoring with a critical patient Disposition - anticipate discharge home versus more likely the half-way
[2019-03-20] MEDS: Pantoprazole 40 MG Vial IV SCH (17:12)
[2019-03-20] MEDS: Latanoprost 0.005% Ophth Soln 2.5 ML Bottle EYEBOTH SCH (20:58)
[2019-03-21] MEDS: Metoprolol Tartrate 5 MG/5 ML SDV IV SCH ×4 (00:05→17:35)
[2019-03-21] MEDS: Insulin Lispro 100 Unit/ML 3 ML KwikPen SUBCUT SCH ×2 (04:07→09:08)
[2019-03-21] MEDS: Piperacillin/Tazobactam/Dext 3.375 GM in Premix Bag 1 BAG IV SCH ×4 (04:09→22:01)
[2019-03-21] MEDS: Sodium Chloride 5% Ophth Soln 15 ML Bottle EYEBOTH SCH ×4 (05:28→21:36)
--- NOTE | 2019-03-21 06:07 | CRLCR ---
INDICATION: Respiratory failure. COMPARISON: Chest x-ray dated 20 March 2019. FINDINGS: A single portable chest x-ray shows an endotracheal tube in place with the distal tip located approximately 4 cm above the yair. Enteric tube in place. Right-sided central venous catheter. Normal cardiac silhouette. The lungs are hypoventilated and show bibasilar atelectasis. No pneumothorax. IMPRESSION: Hypoventilated lungs with bibasilar atelectasis. Dictated by Lisandro Connolly MD @ 03/21/2019 6:05:53 AM Dictated by: Lisandro Connolly MD @ 03/21/2019 06:06:04 (Electronically Signed)
[2019-03-21] MEDS: Albuterol/Ipratropium 3.0-0.5 MG/3 ML Neb Soln INH SCH ×4 (07:22→20:58)
[2019-03-21] MEDS: Docusate Sodium 100 MG Cap PO SCH ×2 (08:20→20:20)
[2019-03-21] MEDS: LORazepam 2 MG/ML SDV IVPUSH SCH ×2 (08:35→20:58)
[2019-03-21] MEDS: Haloperidol Lactate 5 MG/ML SDV IVPUSH SCH ×2 (08:36→21:07)
[2019-03-21] MEDS: Levothyroxine 100 MCG Vial IVPUSH SCH (08:41)
[2019-03-21] MEDS ORDERED: Potassium Chloride 20 MEQ in Premix Bag 1 BAG IV ONE (09:00)
[2019-03-21] MEDS: Insulin Glargine,Human Rec. Analog 100 Units/ML 3 ML Pen SUBCUT SCH ×2 (09:07→21:34)
[2019-03-21] MEDS: 1: AA 5%/Calcium/D15W/Lytes 1,000 ML with MVI, Adult with Vitamin K 10 ML, Chromium/Copp IV SCH ×6 (09:10→21:09)
--- NOTE | 2019-03-21 09:44 | PCM.PN ---
- General Info Date of Service: 03/21/19 Subjective Update: There were no acute events overnight. He remains intubated and sedated. The patient has remained stable on the ventilator and is still on 40% FiO2. He does desaturate with activity such as turns but recovers fairly quickly. He has required suctioning of thick secretions on several occasions already this morning. He has not had any fevers. There are no new positive culture results. Chest x-ray shows bibasilar atelectasis and is stable for the last several days. Functional Status: Reports: Pain Controlled, Other (intubated and sedated ) - Review of Systems General: Denies: Fever - Patient Data Vitals - Most Recent: Last Vital Signs Temp 36.4 C 03/21/19 07:00 Pulse 90 03/21/19 07:23 Resp 18 03/21/19 07:00 BP 123/52 L 03/21/19 07:00 Pulse Ox 95 03/21/19 07:23 Weight - Most Recent: 80.24 kg I&O - Last 24 Hours: Intake & Output 03/20/19 03/21/19 03/21/19 22:59 06:59 14:59 Intake Total 1826 1772 Output Total 900 925 Balance 926 847 Lab Results Last 24 Hours: Laboratory Results - last 24 hr 03/20/19 03/21/19 03/21/19 Range/Units 08:10 04:30 04:30 WBC 17.4 H (4.5-11.0) K/uL RBC 3.38 L (4.30-5.90) M/uL Hgb 9.7 L (12.0-15.0) g/dL Hct 31.0 L (40.0-54.0) % MCV 92 (80-98) fL MCH 29 (27-31) pg MCHC 31 L (32-36) % Plt Count 319 (150-400) K/uL Puncture Site Line ABG pH 7.478 H (7.350-7.450) ABG pCO2 35.0 (35.0-42.0) mmHg ABG pO2 87.6 (75.0-100.0) mmHg ABG HCO3 25.7 (22.0-26.0) mmol/L ABG Total CO2 23.5 (23.0-27.0) mmol/L ABG O2 Saturation 96.9 (95.0-98.0) % ABG O2 Content 13.5 L (15.0-23.0) %vol ABG Base Excess 2.6 mm/L ABG Hemoglobin 10.0 L (13.5-18.0) g/dL ABG Oxyhemoglobin 95.1 % ABG Carboxyhemoglobin 1.0 (0.0-1.6) % ABG Methemoglobin 0.9 % O2 Delivery Device Ventilator Oxygen Flow Rate L Sodium (140-148) mmol/L Potassium (3.6-5.2) mmol/L Chloride (100-108) mmol/L Carbon Dioxide (21-32) mmol/L Anion Gap (5.0-14.0) mmol/L BUN (7-18) mg/dL Creatinine (0.8-1.3) mg/dL Est Cr Clr Drug Dosing mL/min Estimated GFR (MDRD) (>60) Glucose (74-106) mg/dL Calcium (8.5-10.1) mg/dL Phosphorus (2.5-4.9) mg/dL Magnesium (1.8-2.4) mg/dL Total Bilirubin (0.2-1.0) mg/dL AST (15-37) U/L ALT (12-78) U/L Alkaline Phosphatase (46-116) U/L NT-Pro-B Natriuret Pep (5-125) pg/mL Total Protein (6.4-8.2) g/dL Albumin (3.4-5.0) g/dL Globulin (2.3-3.5) g/dL Albumin/Globulin Ratio (1.2-2.2) Blood Type B POSITIVE Gel Antibody Screen Negative Crossmatch See Detail 03/21/19 Range/Units 04:30 WBC (4.5-11.0) K/uL RBC (4.30-5.90) M/uL Hgb (12.0-15.0) g/dL Hct (40.0-54.0) % MCV (80-98) fL MCH (27-31) pg MCHC (32-36) % Plt Count (150-400) K/uL Puncture Site ABG pH (7.350-7.450) ABG pCO2 (35.0-42.0) mmHg ABG pO2 (75.0-100.0) mmHg ABG HCO3 (22.0-26.0) mmol/L ABG Total CO2 (23.0-27.0) mmol/L ABG O2 Saturation (95.0-98.0) % ABG O2 Content (15.0-23.0) %vol ABG Base Excess mm/L ABG Hemoglobin (13.5-18.0) g/dL ABG Oxyhemoglobin % ABG Carboxyhemoglobin (0.0-1.6) % ABG Methemoglobin % O2 Delivery Device Oxygen Flow Rate L Sodium 146 (140-148) mmol/L Potassium 3.5 L (3.6-5.2) mmol/L Chloride 110 H (100-108) mmol/L Carbon Dioxide 27 (21-32) mmol/L Anion Gap 12.5 (5.0-14.0) mmol/L BUN 30 H (7-18) mg/dL Creatinine 1.1 (0.8-1.3) mg/dL Est Cr Clr Drug Dosing 61.29 mL/min Estimated GFR (MDRD) > 60 (>60) Glucose 206 H (74-106) mg/dL Calcium 8.2 L (8.5-10.1) mg/dL Phosphorus 3.7 (2.5-4.9) mg/dL Magnesium 1.8 (1.8-2.4) mg/dL Total Bilirubin 0.5 (0.2-1.0) mg/dL AST 15 (15-37) U/L ALT 32 (12-78) U/L Alkaline Phosphatase 108 (46-116) U/L NT-Pro-B Natriuret Pep 802 H (5-125) pg/mL Total Protein 4.9 L (6.4-8.2) g/dL Albumin 2.1 L (3.4-5.0) g/dL Globulin 2.8 (2.3-3.5) g/dL Albumin/Globulin Ratio 0.8 L (1.2-2.2) Blood Type Gel Antibody Screen Crossmatch Quentin Results Last 24 Hours: Microbiology 03/20/19 06:35 Aerobic Blood Culture - Preliminary Blood - Central Line NO GROWTH AFTER 1 DAY Anaerobic Blood Culture - Preliminary NO GROWTH AFTER 1 DAY 03/20/19 06:33 Aerobic Blood Culture - Preliminary Blood - Central Line NO GROWTH AFTER 1 DAY Anaerobic Blood Culture - Preliminary NO GROWTH AFTER 1 DAY Med Orders - Current: Current Medications Albuterol (Proventil Neb Soln) 2.5 mg NEB Q4H PRN PRN Reason: Shortness Of Breath/wheezing Last Admin: 03/10/19 00:24 Dose: 2.5 mg Albuterol/Ipratropium (Duoneb 3.0-0.5 Mg/3 Ml) 3 ml INH QIDRT [facility] Last Admin: 03/21/19 07:22 Dose: 3 ml Dextrose (Glutose 15) 15 gm PO ASDIRECTED PRN PRN Reason: HYPOGLYCEMIA Dextrose/Water (Dextrose 50% In Water) 50 ml IVPUSH ASDIRECTED PRN PRN Reason: HYPOGLYCEMIA Diphenhydramine HCl (Benadryl) 25 mg IVPUSH Q4H PRN PRN Reason: Itching Last Admin: 03/18/19 03:20 Dose: 25 mg Docusate Sodium (Colace) 100 mg PO BID [facility] Last Admin: 03/21/19 08:20 Dose: Not Given Glucagon (Glucagen) 1 mg IM ASDIRECTED PRN PRN Reason: HYPOGLYCEMIA Haloperidol Lactate (Haldol) 2 mg IVPUSH Q4H PRN PRN Reason: Agitation Last Admin: 03/18/19 21:57 Dose: 2 mg Haloperidol Lactate (Haldol) 2.5 mg IVPUSH BID [facility] Last Admin: 03/21/19 08:36 Dose: 2.5 mg Heparin Sodium (Porcine) (Heparin Lock Flush 100 Units/Ml) 500 units FLUSH ASDIRECTED PRN PRN Reason: Keep Vein Open Last Admin: 03/20/19 06:39 Dose: 500 units Valproic Acid 500 mg/ Sodium (Chloride) 55 mls @ 55 mls/hr IV Q8H [facility] Last Admin: 03/21/19 04:55 Dose: 55 mls/hr Propofol (Diprivan 100 Ml) 100 mls @ 2.195 mls/hr IV TITRATE [facility]; Protocol Last Admin: 03/21/19 09:29 Dose: 40 mcg/kg/min, 17.559 mls/hr Heparin Sodium (Porcine) 5,000 (units/ Sodium Chloride) 501 mls @ 0.1 mls/hr IV ASDIRECTED [facility] Last Admin: 03/19/19 01:06 Dose: 1 units/hr, 0.1 mls/hr Sodium Chloride (Normal Saline) 1,000 mls @ 20 mls/hr IV ASDIRECTED [facility] Last Admin: 03/19/19 08:13 Dose: 125 mls/hr Piperacillin/Tazobactam/ (Dextrose 3.375 gm/ Premix) 50 mls @ 100 mls/hr IV Q6H [facility] Last Admin: 03/21/19 09:33 Dose: 100 mls/hr Multivitamins/Minerals 10 ml/Chromium/Copper/Manganese/Seleni/Zn 1 ml/ Amino Ac/ Electrol/Dextrose/Calcium 1,011 mls @ 82 mls/hr IV .BY DURATION [facility] Last Admin: 03/20/19 21:04 Dose: 82 mls/hr Amino Ac/Electrol/Dextrose/Calcium (Clinimix E 12/08) 1,000 mls @ 82 mls/hr IV .BY DURATION [facility] Last Admin: 03/21/19 09:10 Dose: 82 mls/hr Albumin Human (Albumin 25%) 25 gm in 100 mls @ 25 mls/hr IV Q24H [facility] Stop: 03/23/19 11:59 Last Admin: 03/21/19 08:34 Dose: 25 mls/hr Albumin Human (Albumin 25%) 25 gm in 100 mls @ 25 mls/hr IV Q24H [facility] Stop: 03/23/19 15:59 Last Admin: 03/20/19 11:43 Dose: 25 mls/hr Azithromycin 250 mg/ Sodium (Chloride) 150 mls @ 150 mls/hr IV Q24H [facility] Last Admin: 03/20/19 11:20 Dose: 150 mls/hr Potassium Chloride 20 meq/ (Premix) 100 mls @ 50 mls/hr IV ONETIME ONE Stop: 03/21/19 10:59 Last Admin: 03/21/19 09:29 Dose: 50 mls/hr Insulin Glargine (Lantus Solostar) 12 units SUBCUT BID [facility] Last Admin: 03/21/19 09:07 Dose: 12 units Insulin Human Lispro (Humalog) 0 unit SUBCUT ASDIRECTED [facility]; Protocol Last Admin: 03/21/19 09:08 Dose: 3 units Latanoprost (Xalatan 0.005% Ophth Soln) 0 ml EYEBOTH BEDTIME [facility] Last Admin: 03/20/19 20:58 Dose: 1 drop Levothyroxine Sodium (Synthroid) 100 mcg IVPUSH DAILY [facility] Last Admin: 03/21/19 08:41 Dose: 100 mcg Lorazepam (Ativan) 0.5 mg IVPUSH Q4H PRN PRN Reason: Anxiety Last Admin: 03/18/19 22:19 Dose: 0.5 mg Lorazepam (Ativan) 0.5 mg IVPUSH BID [facility] Last Admin: 03/21/19 08:35 Dose: 0.5 mg Metoprolol Tartrate (Lopressor) 5 mg IV Q6H [facility] Last Admin: 03/21/19 05:30 Dose: 5 mg Naloxone HCl (Narcan) 0.1 mg IV ASDIRECTED PRN PRN Reason: decreased respiratory rate Ondansetron HCl (Zofran) 4 mg IVPUSH Q4H PRN PRN Reason: Nausea/Vomiting Last Admin: 03/18/19 17:31 Dose: 4 mg Pantoprazole Sodium (Protonix Iv) 40 mg IV Q24H [facility] Last Admin: 03/20/19 17:12 Dose: 40 mg Sodium Chloride (Joseph 128 5% Ophth Soln) 0 ml EYEBOTH QID [facility] Last Admin: 03/21/19 09:12 Dose: 1 drop Discontinued Medications Acetylcysteine (Mucomyst 20%) 400 mg INH BIDRT [facility] Last Admin: 03/12/19 07:48 Dose: 200 mg Acetylcysteine (Mucomyst 20%) 200 mg INH BIDRT [facility] Stop: 03/12/19 23:59 Last Admin: 03/12/19 20:44 Dose: 200 mg Bisacodyl (Dulcolax) 10 mg PO BID [facility] Last Admin: 03/17/19 20:35 Dose: Not Given Bisacodyl (Dulcolax) 10 mg RECTAL ONETIME ONE Stop: 03/17/19 17:01 Last Admin: 03/17/19 17:10 Dose: 10 mg Bupivacaine HCl (Marcaine 0.5%) Confirm Administered Dose 50 ml .ROUTE .STK-MED ONE Stop: 03/10/19 06:23 Bupivacaine HCl (Marcaine 0.5%) Confirm Administered Dose 50 ml .ROUTE .STK-MED ONE Stop: 03/11/19 07:19 Last Admin: 03/11/19 07:28 Dose: 15 ml Ropivacaine 36 ml/Dexamethasone 8 mg/Epinephrine HCl 0.4 mg/ Sodium Chloride 41.6 ml 0 ml NERVRT ASDIRECTED [facility] Last Admin: 03/08/19 15:05 Dose: 80 syringe Ropivacaine 36 ml/Dexamethasone 8 mg/Epinephrine HCl 0.4 mg/ Sodium Chloride 41.6 ml 0 ml NERVRT ASDIRECTED [facility] Last Admin: 03/11/19 07:41 Dose: 80 syringe Dexamethasone (Dexamethasone) Confirm Administered Dose 4 mg .ROUTE .STK-MED ONE Stop: 03/08/19 12:18 Diphenhydramine HCl (Benadryl) 25 mg IVPUSH Q6H PRN PRN Reason: Itching Diphenhydramine HCl (Benadryl) 25 mg PO Q6H PRN PRN Reason: Itching Fentanyl (Sublimaze) Confirm Administered Dose 250 mcg .ROUTE .STK-MED ONE Stop: 03/08/19 12:19 Furosemide (Lasix) 20 mg IVPUSH ONETIME ONE Stop: 03/09/19 21:56 Last Admin: 03/09/19 22:10 Dose: 20 mg Furosemide (Lasix) Confirm Administered Dose 20 mg .ROUTE .STK-MED ONE Stop: 03/09/19 22:05 Last Admin: 03/09/19 22:10 Dose: Not Given Furosemide (Lasix) 20 mg IVPUSH ONETIME ONE Stop: 03/10/19 06:33 Last Admin: 03/10/19 07:20 Dose: 20 mg Furosemide (Lasix) 20 mg IVPUSH ONETIME ONE Stop: 03/12/19 18:01 Last Admin: 03/12/19 17:43 Dose: 20 mg Furosemide (Lasix) 20 mg IVPUSH ONETIME ONE Stop: 03/12/19 07:31 Last Admin: 03/12/19 07:44 Dose: 20 mg Furosemide (Lasix) 10 mg IVPUSH Q12H [facility] Stop: 03/13/19 21:01 Last Admin: 03/13/19 20:29 Dose: 10 mg Furosemide (Lasix) 20 mg IVPUSH NOW ONE Stop: 03/15/19 11:31 Last Admin: 03/15/19 11:38 Dose: 20 mg Furosemide (Lasix) 20 mg IVPUSH ONETIME ONE Stop: 03/16/19 13:31 Last Admin: 03/16/19 14:18 Dose: 20 mg Furosemide (Lasix) 20 mg IVPUSH NOW ONE Stop: 03/17/19 09:16 Last Admin: 03/17/19 09:47 Dose: 20 mg Glycopyrrolate (Robinul) Confirm Administered Dose 1 mg .ROUTE .STK-MED ONE Stop: 03/08/19 12:18 Haloperidol Lactate (Haldol) 5 mg IVPUSH BID [facility] Last Admin: 03/09/19 09:06 Dose: 5 mg Heparin Sodium (Porcine) (Heparin Sodium) Confirm Administered Dose 5,000 units .ROUTE .STK-MED ONE Stop: 03/10/19 07:04 Last Admin: 03/10/19 07:57 Dose: Not Given Heparin Sodium (Porcine) (Heparin Lock Flush 100 Units/Ml) Confirm Administered Dose 1,000 units .ROUTE .STK-MED ONE Stop: 03/11/19 07:32 Last Admin: 03/11/19 08:31 Dose: Not Given Heparin Sodium (Porcine) (Heparin Sodium) Confirm Administered Dose 5,000 units .ROUTE .STK-MED ONE Stop: 03/18/19 23:03 Last Admin: 03/19/19 02:36 Dose: Not Given Hydromorphone HCl (Dilaudid Injury/Safety Hazard Assessment 15 Mg In Ns 30 Ml) 0 mg IV ASDIRECTED PRN; Protocol PRN Reason: PAIN Last Admin: 03/16/19 16:43 Dose: 15 mg Sodium Chloride (Normal Saline) 1,000 mls @ 1,000 mls/hr IV ASDIRECTED [facility] Last Admin: 03/08/19 10:02 Dose: 1,000 mls/hr Ampicillin Sodium/Sulbactam (Sodium 1.5 gm/ Sodium Chloride) 50 mls @ 100 mls/ hr IV Q6H [facility] Last Admin: 03/08/19 13:30 Dose: 100 mls/hr Aztreonam 1 gm/ Sodium (Chloride) 50 mls @ 100 mls/hr IV Q12H [facility] Last Admin: 03/08/19 13:30 Dose: 100 mls/hr Lactated Ringer's (Ringers, Lactated) 1,000 mls @ 150 mls/hr IV ASDIRECTED [facility] Last Admin: 03/08/19 13:31 Dose: 150 mls/hr Lactated Ringer's (Ringers, Lactated) Confirm Administered Dose 1,000 mls @ as directed .ROUTE .STK-MED ONE Stop: 03/08/19 15:16 Lactated Ringer's (Ringers, Lactated) 1,000 mls @ 100 mls/hr IV ASDIRECTED [facility] Last Admin: 03/09/19 03:26 Dose: 100 mls/hr Dextrose/Lactated Ringer's (Dextrose 5%-Lactated Ringers) 1,000 mls @ 100 mls/ hr IV ASDIRECTED [facility] Stop: 03/12/19 11:59 Last Admin: 03/11/19 23:35 Dose: 100 mls/hr Ampicillin Sodium/Sulbactam (Sodium 3 gm/ Sodium Chloride) 100 mls @ 200 mls/ hr IV Q6H [facility] Last Admin: 03/13/19 05:19 Dose: 200 mls/hr Aztreonam 1 gm/ Sodium (Chloride) 50 mls @ 100 mls/hr IV Q8H [facility] Last Admin: 03/13/19 04:23 Dose: 100 mls/hr Potassium Chloride 20 meq/Lidocaine HCl 2 ml/ Sodium Chloride 112 mls @ 56 mls/ hr IV Q2H [facility] Stop: 03/09/19 15:59 Last Admin: 03/09/19 17:30 Dose: 56 mls/hr Lactated Ringer's (Ringers, Lactated) 750 mls @ 750 mls/hr IV [facility]US ONE Stop: 03/09/19 16:25 Last Admin: 03/09/19 15:53 Dose: 750 mls/hr Lactated Ringer's (Ringers, Lactated) 750 mls @ 999 mls/hr IV BOLUS ONE Stop: 03/09/19 21:15 Last Admin: 03/09/19 21:08 Dose: 999 mls/hr Heparin Sodium (Porcine) 5,000 (units/ Sodium Chloride) 501 mls @ 5 mls/hr IV ASDIRECTED [facility] Last Admin: 03/12/19 13:58 Dose: 5 mls/hr Propofol (Diprivan 100 Ml) 100 mls @ 2.191 mls/hr IV TITRATE [facility]; Protocol Last Titration: 03/15/19 07:18 Dose: 0 mcg/kg/min, 0 mls/hr Linezolid 600 mg/ Premix 300 mls @ 300 mls/hr IV Q12H [facility] Last Admin: 03/11/19 21:53 Dose: 300 mls/hr Potassium Chloride 20 meq/Lidocaine HCl 2 ml/ Sodium Chloride 112 mls @ 56 mls/ hr IV Q2H [facility] Stop: 03/10/19 16:29 Last Admin: 03/10/19 16:07 Dose: 56 mls/hr Potassium Chloride 20 meq/ (Premix) 0 mls @ 50 mls/hr IV Q2H [facility] Stop: 03/11/19 07:28 Last Admin: 03/11/19 07:32 Dose: 50 mls/hr Magnesium Sulfate 2 gm/ Premix 50 mls @ 25 mls/hr IV Q6H [facility] Last Admin: 03/12/19 04:27 Dose: 25 mls/hr Potassium Phosphate 20 mmole/ (Sodium Chloride) 256.6667 mls @ 85 mls/hr IV Q3H [facility] Stop: 03/11/19 17:59 Last Admin: 03/11/19 14:42 Dose: 85 mls/hr Multivitamins/Minerals 10 ml/Chromium/Copper/Manganese/Seleni/Zn 1 ml/ Amino Ac/ Electrol/Dextrose/Calcium 1,011 mls @ 82 mls/hr IV .BY DURATION [facility] Last Admin: 03/13/19 12:34 Dose: 82 mls/hr Amino Ac/Electrol/Dextrose/Calcium (Clinimix E 15) 1,000 mls @ 82 mls/hr IV .BY DURATION [facility] Last Admin: 03/14/19 01:20 Dose: 82 mls/hr Sodium Chloride (Normal Saline) 1,000 mls @ 20 mls/hr IV ASDIRECTED [facility] Last Admin: 03/13/19 22:58 Dose: 20 mls/hr Potassium Phosphate 20 mmole/ (Sodium Chloride) 256.6667 mls @ 85.556 mls/hr IV Q3H [facility] Stop: 03/12/19 16:59 Last Admin: 03/12/19 14:49 Dose: 85.556 mls/hr Potassium Chloride 20 meq/ (Premix) 100 mls @ 50 mls/hr IV ONETIME ONE Stop: 03/13/19 10:59 Last Admin: 03/13/19 09:29 Dose: 50 mls/hr Potassium Phosphate 30 mmole/ (Sodium Chloride) 110 mls @ 30 mls/hr IV ONETIME ONE Stop: 03/13/19 14:39 Last Admin: 03/13/19 12:14 Dose: 30 mls/hr Linezolid 600 mg/ Premix 300 mls @ 300 mls/hr IV Q12H [facility] Last Admin: 03/20/19 09:52 Dose: 300 mls/hr Magnesium Sulfate 2 gm/ Premix 50 mls @ 25 mls/hr IV Q6H [facility] Stop: 03/16/19 03:59 Last Admin: 03/16/19 01:59 Dose: 25 mls/hr Azithromycin 250 mg/ Sodium (Chloride) 150 mls @ 150 mls/hr IV Q12H [facility] Azithromycin 250 mg/ Sodium (Chloride) 150 mls @ 150 mls/hr IV Q24H [facility] Last Admin: 03/17/19 11:28 Dose: 150 mls/hr Multivitamins/Minerals 10 ml/Chromium/Copper/Manganese/Seleni/Zn 1 ml/ Amino Ac/ Electrol/Dextrose/Calcium 1,011 mls @ 82 mls/hr IV .BY DURATION [facility] Stop: 03/18/19 14:59 Last Admin: 03/17/19 14:26 Dose: 82 mls/hr Amino Ac/Electrol/Dextrose/Calcium (Clinimix E 5/15) 1,000 mls @ 82 mls/hr IV .BY DURATION [facility] Stop: 03/18/19 14:59 Last Admin: 03/18/19 03:38 Dose: 82 mls/hr Multivitamins/Minerals 10 ml/Chromium/Copper/Manganese/Seleni/Zn 1 ml/ Amino Ac/ Electrol/Dextrose/Calcium 1,011 mls @ 80 mls/hr IV .BY DURATION [facility] Last Admin: 03/18/19 16:05 Dose: 40 mls/hr Amino Ac/Electrol/Dextrose/Calcium (Clinimix E 5/15) 1,000 mls @ 40 mls/hr IV .BY DURATION [facility] Piperacillin Sod/Tazobactam (Sod 3.375 gm/ Sodium Chloride) 50 mls @ 100 mls/ hr IV Q6H [facility] Last Admin: 03/19/19 04:17 Dose: 100 mls/hr Sodium Chloride (Normal Saline) Confirm Administered Dose 50 mls @ as directed .ROUTE .STK-MED ONE Stop: 03/18/19 21:35 Last Admin: 03/18/19 21:40 Dose: Not Given Propofol (Diprivan 100 Ml) Confirm Administered Dose 100 mls @ as directed .ROUTE .STK-MED ONE Stop: 03/18/19 23:04 Last Admin: 03/19/19 01:04 Dose: Not Given Sodium Chloride (Normal Saline) 500 mls @ 999 mls/hr IV .BOLUS ONE Stop: 03/19/19 00:00 Last Admin: 03/19/19 00:00 Dose: 999 mls/hr Sodium Chloride (Normal Saline) 100 mls @ 4 mls/sec IV ASDIRECTED [facility] Stop: 03/19/19 10:00 Last Admin: 03/19/19 07:45 Dose: 4 mls/sec Multivitamins/Minerals 10 ml/Chromium/Copper/Manganese/Seleni/Zn 1 ml/ Amino Ac/ Electrol/Dextrose/Calcium 1,011 mls @ 80 mls/hr IV .BY DURATION [facility] Stop: 03/19/19 20:00 Amino Ac/Electrol/Dextrose/Calcium (Clinimix E 5/15) 1,000 mls @ 80 mls/hr IV .BY DURATION [facility] Stop: 03/19/19 20:00 Last Admin: 03/19/19 08:12 Dose: 80 mls/hr Insulin Glargine (Lantus Solostar) 10 units SUBCUT BID [facility] Last Admin: 03/16/19 09:27 Dose: 10 unit Insulin Glargine (Lantus Solostar) 14 units SUBCUT BID [facility] Last Admin: 03/18/19 09:06 Dose: 14 units Insulin Glargine (Lantus Solostar) 7 units SUBCUT BID [facility] Stop: 03/18/19 21:01 Last Admin: 03/18/19 21:25 Dose: Not Given Insulin Human Lispro (Humalog) 0 unit SUBCUT Q6H PRN; Protocol PRN Reason: MEDIUM CORRECTIONAL DOSING Last Admin: 03/14/19 17:42 Dose: 7 units Insulin Human Lispro (Humalog) 15 unit SUBCUT ONETIME ONE Stop: 03/14/19 12:05 Last Admin: 03/14/19 12:10 Dose: 15 units Insulin Human Lispro (Humalog) 0 unit SUBCUT ONETIME ONE Stop: 03/15/19 00:16 Last Admin: 03/15/19 00:25 Dose: 12 units Iopamidol (Isovue-370 (76%)) 100 ml IV . DIRECTED [facility] Stop: 03/19/19 10:00 Last Admin: 03/19/19 07:45 Dose: 100 ml Lidocaine HCl (Xylocaine-Mpf 1%) 5 ml INJECT ONETIME ONE Stop: 03/11/19 05:30 Last Admin: 03/11/19 05:39 Dose: 2 ml Lidocaine/Epinephrine (Xylocaine 1% With Epinephrine 1:100,000) Confirm Administered Dose 50 ml .ROUTE .STK-MED ONE Stop: 03/10/19 06:23 Lidocaine/Epinephrine (Xylocaine 1% With Epinephrine 1:100,000) Confirm Administered Dose 50 ml .ROUTE .STK-MED ONE Stop: 03/11/19 07:19 Last Admin: 03/11/19 07:28 Dose: 15 ml Linezolid (Zyvox) 600 mg IRR .STK-MED ONE Stop: 03/11/19 07:39 Last Admin: 03/11/19 07:38 Dose: 600 mg Lorazepam (Ativan) 0.5 mg IVPUSH BID [facility] Last Admin: 03/09/19 09:09 Dose: 0.5 mg Lorazepam (Ativan) 0.25 mg IVPUSH BID [facility] Last Admin: 03/10/19 09:09 Dose: 0.25 mg Meropenem (Merrem) Confirm Administered Dose 500 mg .ROUTE .STK-MED ONE Stop: 03/08/19 12:05 Last Admin: 03/08/19 14:00 Dose: 500 mg Meropenem (Merrem) Confirm Administered Dose 500 mg .ROUTE .STK-MED ONE Stop: 03/10/19 06:23 Meropenem (Merrem) Confirm Administered Dose 500 mg .ROUTE .STK-MED ONE Stop: 03/11/19 06:45 Last Admin: 03/11/19 07:38 Dose: 500 mg Methylprednisolone Sodium Succinate (Solu-Medrol) 40 mg IVPUSH Q6H [facility] Last Admin: 03/20/19 09:50 Dose: 40 mg Neostigmine Methylsulfate (Neostigmine) Confirm Administered Dose 5 mg .ROUTE .STK-MED ONE Stop: 03/08/19 12:18 Ondansetron HCl (Zofran) Confirm Administered Dose 4 mg .ROUTE .STK-MED ONE Stop: 03/08/19 12:18 Ondansetron HCl (Zofran) 4 mg IVPUSH Q6H PRN PRN Reason: Nausea/Vomiting Piperacillin Sod/Tazobactam Sod (Zosyn) Confirm Administered Dose 3.375 gm .ROUTE .STK-MED ONE Stop: 03/18/19 21:34 Last Admin: 03/18/19 21:40 Dose: Not Given Propofol (Diprivan 20 Ml) Confirm Administered Dose 200 mg .ROUTE .STK-MED ONE Stop: 03/08/19 12:18 Propofol (Diprivan 20 Ml) Confirm Administered Dose 200 mg .ROUTE .STK-MED ONE Stop: 03/10/19 07:33 Rocuronium [place] (Zemuron) Confirm Administered Dose 50 mg .ROUTE .STK-MED ONE Stop: 03/08/19 12:18 Succinylcholine Chloride (Quelicin) Confirm Administered Dose 200 mg .ROUTE .STK -MED ONE Stop: 03/08/19 12:18 Succinylcholine Chloride (Quelicin) Confirm Administered Dose 200 mg .ROUTE .STK -MED ONE Stop: 03/10/19 07:33 - Exam Quality Assessment: Supplemental Oxygen, Central Line/PICC, Urine Catheter, DVT Prophylaxis, Restraints General: No Acute Distress, Sedated. No: Alert Neck: Supple Lungs: Normal Respiratory Effort, Decreased Breath Sounds (mild right lung base) , Crackles (mild right lower lung ) Cardiovascular: Regular Rhythm, Tachycardia GI/Abdominal Exam: Soft, No Distention, Abnormal Bowel Sounds (hypoactive ) Extremities: No Pedal Edema. No: Increased Warmth Skin: Warm, Dry Wound/Incisions: Healing Well, No Drainage Psy/Mental Status: No: Alert, Agitated - Problem List & Annotations (1) Small bowel obstruction due to adhesions SNOMED Code(s): 224057525 Code(s): K56.50 - INTESTNL ADHESIONS, UNSP TO PARTIAL VERSUS COMPLETE OBST Status: Acute Current Visit: Yes (2) Acute kidney injury SNOMED Code(s): 46240865, 69351359 Code(s): N17.9 - ACUTE KIDNEY FAILURE, UNSPECIFIED Status: Acute Current Visit: Yes (3) Schizophrenia SNOMED Code(s): 61367820 Code(s): F20.9 - SCHIZOPHRENIA, UNSPECIFIED Status: Chronic Current Visit : No Qualifiers: Schizophrenia type: unspecified Qualified Code(s): F20.9 - Schizophrenia, unspecified (4) Hypothyroid SNOMED Code(s): 14169464 Code(s): E03.9 - HYPOTHYROIDISM, UNSPECIFIED Status: Chronic Current Visit: No Qualifiers: Hypothyroidism type: acquired Qualified Code(s): E03.9 - Hypothyroidism, unspecified (5) HTN (hypertension) SNOMED Code(s): 12347222 Code(s): I10 - ESSENTIAL (PRIMARY) HYPERTENSION Status: Chronic Current Visit: No Qualifiers: Hypertension type: essential hypertension Qualified Code(s): I10 - Essential (primary) hypertension - Problem List Review Problem List Initiated/Reviewed/Updated: Yes - My Orders Last 24 Hours: My Active Orders 03/21/19 09:42 RT Aerosol Therapy [RC] ASDIRECTED 03/21/19 10:00 Acetylcysteine [Mucomyst 20%] 200 mg NEB BIDRT - Plan Plan:: ASSESSMENT AND PLAN - Small bowel obstruction with pneumatosis - status post emergent laparotomy with small bowel resection and right colectomy 03/08. Persistent small bowel obstruction right lower quadrant identified 2 days ago. He did have 2 loose bowel movements overnight. -Postoperative care per surgical team -He is receiving TPN, 82 mL per hour -Pain control -Azithromycin 250 mg IV daily for GI motility augmentation per Dr. Monae Acute respiratory failure with hypoxia and hypercapnia - secondary to aspiration with vomiting 03/18. Chest x-ray stable. He has thick secretions but has not had any fevers. White blood cell count trending down. Secretions are limiting spontaneous breathing trials at this time. -Continue current ventilator settings -Zosyn added for empiric coverage with aspiration -Mucomyst nebulizers -Steroids were discontinued yesterday -Antibiotic coverage with linezolid -Vigorous pulmonary toilet -If stable consider spontaneous breathing trial in a.m. Type 2 diabetes mellitus - glucose levels improved with insulin in the TPN -Continue glucometers every 6 hours -Regular insulin 15 units added to each liter of TPN -High dose sliding scale Humalog Hypokalemia - potassium level decreased again this morning. -Supplement per surgical team -Recheck in the morning Severe schizophrenia - patient is very debilitated because of his psychiatric illness. -Continue low-dose Haldol -Continue regular dose Depakote -low dose lorazepam -Restart oral medications when able Acute kidney injury - resolved -Continue to closely monitor urine output and renal function Maintenance issues - - DVT prophylaxis - mechanical - GI prophylaxis - IV PPI - Nutrition - nothing by mouth, currently receiving TPN for nutritional support - Rodriguez catheter - placed for strict intake and output monitoring with a critical patient Disposition - anticipate discharge home versus more likely the long term
--- NOTE | 2019-03-21 10:48 | PN ---
DATE OF SERVICE: 03/21/2019 SUBJECTIVE: Tuan is a 58-year-old male. He remains to be on the vent. Secretions have been thick per nursing staff. Labs this morning, hemoglobin 9.7, white count 17.4. Potassium 3.5, glucose 206. He has had 2 large liquid bowel movements. NG has put out 350 mL of a clear type drainage. REVIEW OF SYSTEMS: Remainder of review of systems negative. OBJECTIVE: GENERAL: Tuan Perez is a 58-year-old male. VITAL SIGNS: TPR 97.6, 85, 16, blood pressure 123/52. HEART: Negative. LUNGS: Diminished. ABDOMEN: Dressing dry. Abdominal binder is on. EXTREMITIES: Negative. ASSESSMENT: 1. Exploratory laparotomy with lysis of extensive adhesions for: a. Small bowel obstruction. b. Resection of portion of adherent abdominal wall including peritoneum, fascia, and muscle. c. Partial resection of portion of transverse colon. d. Enterostomy for tube decompression of small bowel. e. Drainage of pelvic abscess. f. Placement of Interceed mesh to limit recurrent adhesion formation between pelvic and abdominal wall. Surgeon, Haider Monae MD, 03/10/2019. g. Delayed primary closure. Surgeon: Haider Monae MD. PLAN: 20 mEq KCl IV one time. Check CBC, CMP, BNP, and phos in a.m. Syl Galindo PA-C /[id number]
[2019-03-21] MEDS: Acetylcysteine 20% 200 MG/ML 4 ML Nebulizer Soln SDV NEB SCH ×2 (10:59→20:58)
[2019-03-21] MEDS: Heparin Sodium 5,000 UNITS in Sodium Chloride 0.9% 500 ML IV SCH (13:30)
[2019-03-21] MEDS: Pantoprazole 40 MG Vial IV SCH (17:36)
[2019-03-21] MEDS: Latanoprost 0.005% Ophth Soln 2.5 ML Bottle EYEBOTH SCH (21:08)
[2019-03-22] MEDS: Metoprolol Tartrate 5 MG/5 ML SDV IV SCH ×5 (00:05→23:56)
--- NOTE | 2019-03-22 03:18 | CRLCR ---
INDICATION: Intubated TECHNIQUE: Chest 1 views COMPARISON: Chest x-ray 03/21/2019 FINDINGS: Cardiovascular and mediastinum: Normal heart size with an endotracheal tube at the midtrachea level. Orogastric tube extends to the fundus of the stomach. Right subclavian line extends into the right atrium. Lungs and pleural spaces: Low lung volumes with small right pleural effusion with pulmonary cephalization and mild bibasilar airspace disease. Bones and soft tissues: No significant findings. IMPRESSION: Hypoaeration with small right pleural effusion, pulmonary cephalization and bibasilar airspace disease. Compared to the prior examination, slightly improved aeration in the left lung base. Dictated by Jame Morales MD @ Mar 22 2019 3:12AM Signed by Dr. Jame Morales @ Mar 22 2019 3:17AM
[2019-03-22] MEDS: Piperacillin/Tazobactam/Dext 3.375 GM in Premix Bag 1 BAG IV SCH ×4 (04:13→22:08)
[2019-03-22] MEDS: Sodium Chloride 5% Ophth Soln 15 ML Bottle EYEBOTH SCH ×4 (05:42→22:21)
[2019-03-22] MEDS: Acetylcysteine 20% 200 MG/ML 4 ML Nebulizer Soln SDV NEB SCH ×2 (07:18→21:02)
[2019-03-22] MEDS: Albuterol/Ipratropium 3.0-0.5 MG/3 ML Neb Soln INH SCH ×4 (07:18→21:02)
[2019-03-22] MEDS ORDERED: Central Total Parenteral Nutrition Bag SCH (07:30)
[2019-03-22] MEDS: Docusate Sodium 100 MG Cap PO SCH ×2 (08:59→22:08)
[2019-03-22] MEDS: Insulin Glargine,Human Rec. Analog 100 Units/ML 3 ML Pen SUBCUT SCH ×2 (09:04→20:48)
[2019-03-22] MEDS: Levothyroxine 100 MCG Vial IVPUSH SCH (09:11)
[2019-03-22] MEDS: LORazepam 2 MG/ML SDV IVPUSH SCH ×2 (09:14→20:58)
[2019-03-22] MEDS: Haloperidol Lactate 5 MG/ML SDV IVPUSH SCH ×2 (09:16→20:56)
--- NOTE | 2019-03-22 09:32 | PCM.PN ---
- General Info Date of Service: 03/22/19 Subjective Update: There were no acute issues overnight. Respiratory status has remained stable on 40% FiO2. We did have a short trial off sedation with SIMV mode on the ventilator this morning but the patient only lasted a few minutes before his respiratory rate desi to the 50s and he became tachycardic. He was more comfortable after sedation was restarted. Chest x-ray this morning shows slight improvement in bibasilar opacities versus atelectasis but did also show pulmonary vascular congestion. No stools overnight. He had about 500 mL of clear fluid drained from his NG tube. Still has a fair amount of secretions but they are not as thick today. Functional Status: Reports: Other (intubated and sedated ) - Review of Systems General: Denies: Fever HEENT: Reports: Other (lots of secretions) - Patient Data Vitals - Most Recent: Last Vital Signs Temp 36.5 C 03/22/19 09:00 Pulse 93 03/22/19 09:00 Resp 35 H 03/22/19 09:00 BP 141/64 H 03/22/19 09:00 Pulse Ox 93 L 03/22/19 09:00 Weight - Most Recent: 80.24 kg I&O - Last 24 Hours: Intake & Output 03/21/19 03/22/19 03/22/19 22:59 06:59 14:59 Intake Total 2115 1709 Output Total 1100 1100 Balance 1015 609 Lab Results Last 24 Hours: Laboratory Results - last 24 hr 03/22/19 03/22/19 Range/Units 04:45 04:45 WBC 11.3 H (4.5-11.0) K/uL RBC 3.07 L (4.30-5.90) M/uL Hgb 9.0 L (12.0-15.0) g/dL Hct 28.7 L (40.0-54.0) % MCV 94 (80-98) fL MCH 29 (27-31) pg MCHC 31 L (32-36) % Plt Count 324 (150-400) K/uL Sodium 146 (140-148) mmol/L Potassium 3.8 (3.6-5.2) mmol/L Chloride 111 H (100-108) mmol/L Carbon Dioxide 27 (21-32) mmol/L Anion Gap 11.8 (5.0-14.0) mmol/L BUN 26 H (7-18) mg/dL Creatinine 1.0 (0.8-1.3) mg/dL Est Cr Clr Drug Dosing 67.42 mL/min Estimated GFR (MDRD) > 60 (>60) Glucose 137 H (74-106) mg/dL Calcium 8.3 L (8.5-10.1) mg/dL Phosphorus 4.3 (2.5-4.9) mg/dL Total Bilirubin 0.5 (0.2-1.0) mg/dL AST 14 L (15-37) U/L ALT 31 (12-78) U/L Alkaline Phosphatase 97 (46-116) U/L NT-Pro-B Natriuret Pep 687 H (5-125) pg/mL Total Protein 5.0 L (6.4-8.2) g/dL Albumin 2.4 L (3.4-5.0) g/dL Globulin 2.6 (2.3-3.5) g/dL Albumin/Globulin Ratio 0.9 L (1.2-2.2) Quentin Results Last 24 Hours: Microbiology 03/20/19 06:33 Aerobic Blood Culture - Preliminary Blood - Central Line NO GROWTH AFTER 2 DAYS Anaerobic Blood Culture - Preliminary NO GROWTH AFTER 2 DAYS 03/20/19 06:35 Aerobic Blood Culture - Preliminary Blood - Central Line NO GROWTH AFTER 2 DAYS Anaerobic Blood Culture - Preliminary NO GROWTH AFTER 2 DAYS Med Orders - Current: Current Medications Acetylcysteine (Mucomyst 20%) 200 mg NEB BIDRT [facility] Last Admin: 03/22/19 07:18 Dose: 200 mg Albuterol (Proventil Neb Soln) 2.5 mg NEB Q4H PRN PRN Reason: Shortness Of Breath/wheezing Last Admin: 03/10/19 00:24 Dose: 2.5 mg Albuterol/Ipratropium (Duoneb 3.0-0.5 Mg/3 Ml) 3 ml INH QIDRT [facility] Last Admin: 03/22/19 07:18 Dose: 3 ml Dextrose (Glutose 15) 15 gm PO ASDIRECTED PRN PRN Reason: HYPOGLYCEMIA Dextrose/Water (Dextrose 50% In Water) 50 ml IVPUSH ASDIRECTED PRN PRN Reason: HYPOGLYCEMIA Diphenhydramine HCl (Benadryl) 25 mg IVPUSH Q4H PRN PRN Reason: Itching Last Admin: 03/18/19 03:20 Dose: 25 mg Docusate Sodium (Colace) 100 mg PO BID [facility] Last Admin: 03/22/19 08:59 Dose: Not Given Furosemide (Lasix) 20 mg IVPUSH Q12H [facility] Stop: 03/22/19 21:31 Glucagon (Glucagen) 1 mg IM ASDIRECTED PRN PRN Reason: HYPOGLYCEMIA Haloperidol Lactate (Haldol) 2 mg IVPUSH Q4H PRN PRN Reason: Agitation Last Admin: 03/18/19 21:57 Dose: 2 mg Haloperidol Lactate (Haldol) 2.5 mg IVPUSH BID [facility] Last Admin: 03/22/19 09:16 Dose: 2.5 mg Heparin Sodium (Porcine) (Heparin Lock Flush 100 Units/Ml) 500 units FLUSH ASDIRECTED PRN PRN Reason: Keep Vein Open Last Admin: 03/20/19 06:39 Dose: 500 units Valproic Acid 500 mg/ Sodium (Chloride) 55 mls @ 55 mls/hr IV Q8H [facility] Last Admin: 03/22/19 04:52 Dose: 55 mls/hr Propofol (Diprivan 100 Ml) 100 mls @ 2.195 mls/hr IV TITRATE [facility]; Protocol Last Admin: 03/22/19 05:43 Dose: 40 mcg/kg/min, 17.559 mls/hr Heparin Sodium (Porcine) 5,000 (units/ Sodium Chloride) 501 mls @ 0.1 mls/hr IV ASDIRECTED [facility] Last Admin: 03/21/19 13:30 Dose: 1 units/hr, 0.1 mls/hr Sodium Chloride (Normal Saline) 1,000 mls @ 20 mls/hr IV ASDIRECTED [facility] Last Admin: 03/19/19 08:13 Dose: 125 mls/hr Piperacillin/Tazobactam/ (Dextrose 3.375 gm/ Premix) 50 mls @ 100 mls/hr IV Q6H [facility] Last Admin: 03/22/19 04:13 Dose: 100 mls/hr Multivitamins/Minerals 10 ml/Chromium/Copper/Manganese/Seleni/Zn 1 ml/ Amino Ac/ Electrol/Dextrose/Calcium 1,011 mls @ 82 mls/hr IV .BY DURATION [facility] Last Admin: 03/21/19 21:09 Dose: 82 mls/hr Amino Ac/Electrol/Dextrose/Calcium (Clinimix E 15) 1,000 mls @ 82 mls/hr IV .BY DURATION [facility] Last Admin: 03/21/19 09:10 Dose: 82 mls/hr Albumin Human (Albumin 25%) 25 gm in 100 mls @ 25 mls/hr IV Q24H [facility] Stop: 03/23/19 11:59 Last Admin: 03/22/19 07:30 Dose: 25 mls/hr Albumin Human (Albumin 25%) 25 gm in 100 mls @ 25 mls/hr IV Q24H [facility] Stop: 03/23/19 15:59 Last Admin: 03/21/19 12:04 Dose: 25 mls/hr Azithromycin 250 mg/ Sodium (Chloride) 150 mls @ 150 mls/hr IV Q24H [facility] Last Admin: 03/21/19 10:27 Dose: 150 mls/hr Potassium Chloride 40 meq/ (Premix) 100 mls @ 25 mls/hr IV ONETIME ONE Stop: 03/22/19 13:27 Insulin Glargine (Lantus Solostar) 12 units SUBCUT BID [facility] Last Admin: 03/22/19 09:04 Dose: 12 units Insulin Human Lispro (Humalog) 0 unit SUBCUT ASDIRECTED [facility]; Protocol Last Admin: 03/21/19 09:08 Dose: 3 units Latanoprost (Xalatan 0.005% Ophth Soln) 0 ml EYEBOTH BEDTIME [facility] Last Admin: 03/21/19 21:08 Dose: 1 drop Levothyroxine Sodium (Synthroid) 100 mcg IVPUSH DAILY [facility] Last Admin: 03/22/19 09:11 Dose: 100 mcg Lorazepam (Ativan) 0.5 mg IVPUSH Q4H PRN PRN Reason: Anxiety Last Admin: 03/18/19 22:19 Dose: 0.5 mg Lorazepam (Ativan) 0.5 mg IVPUSH BID [facility] Last Admin: 03/22/19 09:14 Dose: 0.5 mg Metoprolol Tartrate (Lopressor) 5 mg IV Q6H [facility] Last Admin: 03/22/19 05:41 Dose: 5 mg Naloxone HCl (Narcan) 0.1 mg IV ASDIRECTED PRN PRN Reason: decreased respiratory rate Non-Formulary Medication (Total Parenteral Nutrition, Central) 1,000 ml .XX .Continue Order [facility] Stop: 03/22/19 12:00 Ondansetron HCl (Zofran) 4 mg IVPUSH Q4H PRN PRN Reason: Nausea/Vomiting Last Admin: 03/18/19 17:31 Dose: 4 mg Pantoprazole Sodium (Protonix Iv) 40 mg IV Q24H [facility] Last Admin: 03/21/19 17:36 Dose: 40 mg Sodium Chloride (Jospeh 128 5% Ophth Soln) 0 ml EYEBOTH QID [facility] Last Admin: 03/22/19 05:42 Dose: 1 drop Discontinued Medications Acetylcysteine (Mucomyst 20%) 400 mg INH BIDRT [facility] Last Admin: 03/12/19 07:48 Dose: 200 mg Acetylcysteine (Mucomyst 20%) 200 mg INH BIDRT [facility] Stop: 03/12/19 23:59 Last Admin: 03/12/19 20:44 Dose: 200 mg Bisacodyl (Dulcolax) 10 mg PO BID [facility] Last Admin: 03/17/19 20:35 Dose: Not Given Bisacodyl (Dulcolax) 10 mg RECTAL ONETIME ONE Stop: 03/17/19 17:01 Last Admin: 03/17/19 17:10 Dose: 10 mg Bupivacaine HCl (Marcaine 0.5%) Confirm Administered Dose 50 ml .ROUTE .STK-MED ONE Stop: 03/10/19 06:23 Bupivacaine HCl (Marcaine 0.5%) Confirm Administered Dose 50 ml .ROUTE .STK-MED ONE Stop: 03/11/19 07:19 Last Admin: 03/11/19 07:28 Dose: 15 ml Ropivacaine 36 ml/Dexamethasone 8 mg/Epinephrine HCl 0.4 mg/ Sodium Chloride 41.6 ml 0 ml NERVRT ASDIRECTED [facility] Last Admin: 03/08/19 15:05 Dose: 80 syringe Ropivacaine 36 ml/Dexamethasone 8 mg/Epinephrine HCl 0.4 mg/ Sodium Chloride 41.6 ml 0 ml NERVRT ASDIRECTED [facility] Last Admin: 03/11/19 07:41 Dose: 80 syringe Dexamethasone (Dexamethasone) Confirm Administered Dose 4 mg .ROUTE .STK-MED ONE Stop: 03/08/19 12:18 Diphenhydramine HCl (Benadryl) 25 mg IVPUSH Q6H PRN PRN Reason: Itching Diphenhydramine HCl (Benadryl) 25 mg PO Q6H PRN PRN Reason: Itching Fentanyl (Sublimaze) Confirm Administered Dose 250 mcg .ROUTE .STK-MED ONE Stop: 03/08/19 12:19 Furosemide (Lasix) 20 mg IVPUSH ONETIME ONE Stop: 03/09/19 21:56 Last Admin: 03/09/19 22:10 Dose: 20 mg Furosemide (Lasix) Confirm Administered Dose 20 mg .ROUTE .STK-MED ONE Stop: 03/09/19 22:05 Last Admin: 03/09/19 22:10 Dose: Not Given Furosemide (Lasix) 20 mg IVPUSH ONETIME ONE Stop: 03/10/19 06:33 Last Admin: 03/10/19 07:20 Dose: 20 mg Furosemide (Lasix) 20 mg IVPUSH ONETIME ONE Stop: 03/12/19 18:01 Last Admin: 03/12/19 17:43 Dose: 20 mg Furosemide (Lasix) 20 mg IVPUSH ONETIME ONE Stop: 03/12/19 07:31 Last Admin: 03/12/19 07:44 Dose: 20 mg Furosemide (Lasix) 10 mg IVPUSH Q12H [facility] Stop: 03/13/19 21:01 Last Admin: 03/13/19 20:29 Dose: 10 mg Furosemide (Lasix) 20 mg IVPUSH NOW ONE Stop: 03/15/19 11:31 Last Admin: 03/15/19 11:38 Dose: 20 mg Furosemide (Lasix) 20 mg IVPUSH ONETIME ONE Stop: 03/16/19 13:31 Last Admin: 03/16/19 14:18 Dose: 20 mg Furosemide (Lasix) 20 mg IVPUSH NOW ONE Stop: 03/17/19 09:16 Last Admin: 03/17/19 09:47 Dose: 20 mg Glycopyrrolate (Robinul) Confirm Administered Dose 1 mg .ROUTE .STK-MED ONE Stop: 03/08/19 12:18 Haloperidol Lactate (Haldol) 5 mg IVPUSH BID [facility] Last Admin: 03/09/19 09:06 Dose: 5 mg Heparin Sodium (Porcine) (Heparin Sodium) Confirm Administered Dose 5,000 units .ROUTE .[facility] ONE Stop: 03/10/19 07:04 Last Admin: 03/10/19 07:57 Dose: Not Given Heparin Sodium (Porcine) (Heparin Lock Flush 100 Units/Ml) Confirm Administered Dose 1,000 units .[address]TE .[facility] ONE Stop: 03/11/19 07:32 Last Admin: 03/11/19 08:31 Dose: Not Given Heparin Sodium (Porcine) (Heparin Sodium) Confirm Administered Dose 5,000 units .ROUTE .[facility] ONE Stop: 03/18/19 23:03 Last Admin: 03/19/19 02:36 Dose: Not Given Hydromorphone HCl (Dilaudid Dry Transfer Man 15 Mg In Ns 30 Ml) 0 mg IV ASDIRECTED PRN; Protocol PRN Reason: PAIN Last Admin: 03/16/19 16:43 Dose: 15 mg Sodium Chloride (Normal Saline) 1,000 mls @ 1,000 mls/hr IV ASDIRECTED [facility] Last Admin: 03/08/19 10:02 Dose: 1,000 mls/hr Ampicillin Sodium/Sulbactam (Sodium 1.5 gm/ Sodium Chloride) 50 mls @ 100 mls/ hr IV Q6H [facility] Last Admin: 03/08/19 13:30 Dose: 100 mls/hr Aztreonam 1 gm/ Sodium (Chloride) 50 mls @ 100 mls/hr IV Q12H [facility] Last Admin: 03/08/19 13:30 Dose: 100 mls/hr Lactated Ringer's (Ringers, Lactated) 1,000 mls @ 150 mls/hr IV ASDIRECTED [facility] Last Admin: 03/08/19 13:31 Dose: 150 mls/hr Lactated Ringer's (Ringers, Lactated) Confirm Administered Dose 1,000 mls @ as directed .ROUTE .[facility] ONE Stop: 03/08/19 15:16 Lactated Ringer's (Ringers, Lactated) 1,000 mls @ 100 mls/hr IV ASDIRECTED [facility] Last Admin: 03/09/19 03:26 Dose: 100 mls/hr Dextrose/Lactated Ringer's (Dextrose 5%-Lactated Ringers) 1,000 mls @ 100 mls/ hr IV ASDIRECTED [facility] Stop: 03/12/19 11:59 Last Admin: 03/11/19 23:35 Dose: 100 mls/hr Ampicillin Sodium/Sulbactam (Sodium 3 gm/ Sodium Chloride) 100 mls @ 200 mls/ hr IV Q6H [facility] Last Admin: 03/13/19 05:19 Dose: 200 mls/hr Aztreonam 1 gm/ Sodium (Chloride) 50 mls @ 100 mls/hr IV Q8H [facility] Last Admin: 03/13/19 04:23 Dose: 100 mls/hr Potassium Chloride 20 meq/Lidocaine HCl 2 ml/ Sodium Chloride 112 mls @ 56 mls/ hr IV Q2H [facility] Stop: 03/09/19 15:59 Last Admin: 03/09/19 17:30 Dose: 56 mls/hr Lactated Ringer's (Ringers, Lactated) 750 mls @ 750 mls/hr IV [facility] ONE Stop: 03/09/19 16:25 Last Admin: 03/09/19 15:53 Dose: 750 mls/hr Lactated Ringer's (Ringers, Lactated) 750 mls @ 999 mls/hr IV [facility] ONE Stop: 03/09/19 21:15 Last Admin: 03/09/19 21:08 Dose: 999 mls/hr Heparin Sodium (Porcine) 5,000 (units/ Sodium Chloride) 501 mls @ 5 mls/hr IV ASDIRECTED [facility] Last Admin: 03/12/19 13:58 Dose: 5 mls/hr Propofol (Diprivan 100 Ml) 100 mls @ 2.191 mls/hr IV TITRATE [facility]; Protocol Last Titration: 03/15/19 07:18 Dose: 0 mcg/kg/min, 0 mls/hr Linezolid 600 mg/ Premix 300 mls @ 300 mls/hr IV Q12H [facility] Last Admin: 03/11/19 21:53 Dose: 300 mls/hr Potassium Chloride 20 meq/Lidocaine HCl 2 ml/ Sodium Chloride 112 mls @ 56 mls/ hr IV Q2H [facility] Stop: 03/10/19 16:29 Last Admin: 03/10/19 16:07 Dose: 56 mls/hr Potassium Chloride 20 meq/ (Premix) 0 mls @ 50 mls/hr IV Q2H [facility] Stop: 03/11/19 07:28 Last Admin: 03/11/19 07:32 Dose: 50 mls/hr Magnesium Sulfate 2 gm/ Premix 50 mls @ 25 mls/hr IV Q6H [facility] Last Admin: 03/12/19 04:27 Dose: 25 mls/hr Potassium Phosphate 20 mmole/ (Sodium Chloride) 256.6667 mls @ 85 mls/hr IV Q3H [facility] Stop: 03/11/19 17:59 Last Admin: 03/11/19 14:42 Dose: 85 mls/hr Multivitamins/Minerals 10 ml/Chromium/Copper/Manganese/Seleni/Zn 1 ml/ Amino Ac/ Electrol/Dextrose/Calcium 1,011 mls @ 82 mls/hr IV .BY DURATION [facility] Last Admin: 03/13/19 12:34 Dose: 82 mls/hr Amino Ac/Electrol/Dextrose/Calcium (Clinimix E 12/08) 1,000 mls @ 82 mls/hr IV .BY DURATION [facility] Last Admin: 03/14/19 01:20 Dose: 82 mls/hr Sodium Chloride (Normal Saline) 1,000 mls @ 20 mls/hr IV ASDIRECTED [facility] Last Admin: 03/13/19 22:58 Dose: 20 mls/hr Potassium Phosphate 20 mmole/ (Sodium Chloride) 256.6667 mls @ 85.556 mls/hr IV Q3H [facility] Stop: 03/12/19 16:59 Last Admin: 03/12/19 14:49 Dose: 85.556 mls/hr Potassium Chloride 20 meq/ (Premix) 100 mls @ 50 mls/hr IV ONETIME ONE Stop: 03/13/19 10:59 Last Admin: 03/13/19 09:29 Dose: 50 mls/hr Potassium Phosphate 30 mmole/ (Sodium Chloride) 110 mls @ 30 mls/hr IV ONETIME ONE Stop: 03/13/19 14:39 Last Admin: 03/13/19 12:14 Dose: 30 mls/hr Linezolid 600 mg/ Premix 300 mls @ 300 mls/hr IV Q12H [facility] Last Admin: 03/20/19 09:52 Dose: 300 mls/hr Magnesium Sulfate 2 gm/ Premix 50 mls @ 25 mls/hr IV Q6H [facility] Stop: 03/16/19 03:59 Last Admin: 03/16/19 01:59 Dose: 25 mls/hr Azithromycin 250 mg/ Sodium (Chloride) 150 mls @ 150 mls/hr IV Q12H [facility] Azithromycin 250 mg/ Sodium (Chloride) 150 mls @ 150 mls/hr IV Q24H [facility] Last Admin: 03/17/19 11:28 Dose: 150 mls/hr Multivitamins/Minerals 10 ml/Chromium/Copper/Manganese/Seleni/Zn 1 ml/ Amino Ac/ Electrol/Dextrose/Calcium 1,011 mls @ 82 mls/hr IV .BY DURATION [facility] Stop: 03/18/19 14:59 Last Admin: 03/17/19 14:26 Dose: 82 mls/hr Amino Ac/Electrol/Dextrose/Calcium (Clinimix E 5/15) 1,000 mls @ 82 mls/hr IV .BY DURATION [facility] Stop: 03/18/19 14:59 Last Admin: 03/18/19 03:38 Dose: 82 mls/hr Multivitamins/Minerals 10 ml/Chromium/Copper/Manganese/Seleni/Zn 1 ml/ Amino Ac/ Electrol/Dextrose/Calcium 1,011 mls @ 80 mls/hr IV .BY DURATION [facility] Last Admin: 03/18/19 16:05 Dose: 40 mls/hr Amino Ac/Electrol/Dextrose/Calcium (Clinimix E 5/15) 1,000 mls @ 40 mls/hr IV .BY DURATION [facility] Piperacillin Sod/Tazobactam (Sod 3.375 gm/ Sodium Chloride) 50 mls @ 100 mls/ hr IV Q6H [facility] Last Admin: 03/19/19 04:17 Dose: 100 mls/hr Sodium Chloride (Normal Saline) Confirm Administered Dose 50 mls @ as directed .ROUTE .STK-MED ONE Stop: 03/18/19 21:35 Last Admin: 03/18/19 21:40 Dose: Not Given Propofol (Diprivan 100 Ml) Confirm Administered Dose 100 mls @ as directed .ROUTE .STK-MED ONE Stop: 03/18/19 23:04 Last Admin: 03/19/19 01:04 Dose: Not Given Sodium Chloride (Normal Saline) 500 mls @ 999 mls/hr IV .[facility]US ONE Stop: 03/19/19 00:00 Last Admin: 03/19/19 00:00 Dose: 999 mls/hr Sodium Chloride (Normal Saline) 100 mls @ 4 mls/sec IV ASDIRECTED [facility] Stop: 03/19/19 10:00 Last Admin: 03/19/19 07:45 Dose: 4 mls/sec Multivitamins/Minerals 10 ml/Chromium/Copper/Manganese/Seleni/Zn 1 ml/ Amino Ac/ Electrol/Dextrose/Calcium 1,011 mls @ 80 mls/hr IV .BY DURATION [facility] Stop: 03/19/19 20:00 Amino Ac/Electrol/Dextrose/Calcium (Clinimix E 5/15) 1,000 mls @ 80 mls/hr IV .BY DURATION [facility] Stop: 03/19/19 20:00 Last Admin: 03/19/19 08:12 Dose: 80 mls/hr Potassium Chloride 20 meq/ (Premix) 100 mls @ 50 mls/hr IV ONETIME ONE Stop: 03/21/19 10:59 Last Admin: 03/21/19 09:29 Dose: 50 mls/hr Insulin Glargine (Lantus Solostar) 10 units SUBCUT BID [facility] Last Admin: 03/16/19 09:27 Dose: 10 unit Insulin Glargine (Lantus Solostar) 14 units SUBCUT BID [facility] Last Admin: 03/18/19 09:06 Dose: 14 units Insulin Glargine (Lantus Solostar) 7 units SUBCUT BID [facility] Stop: 03/18/19 21:01 Last Admin: 03/18/19 21:25 Dose: Not Given Insulin Human Lispro (Humalog) 0 unit SUBCUT Q6H PRN; Protocol PRN Reason: MEDIUM CORRECTIONAL DOSING Last Admin: 03/14/19 17:42 Dose: 7 units Insulin Human Lispro (Humalog) 15 unit SUBCUT ONETIME ONE Stop: 03/14/19 12:05 Last Admin: 03/14/19 12:10 Dose: 15 units Insulin Human Lispro (Humalog) 0 unit SUBCUT ONETIME ONE Stop: 03/15/19 00:16 Last Admin: 03/15/19 00:25 Dose: 12 units Iopamidol (Isovue-370 (76%)) 100 ml IV . DIRECTED [facility] Stop: 03/19/19 10:00 Last Admin: 03/19/19 07:45 Dose: 100 ml Lidocaine HCl (Xylocaine-Mpf 1%) 5 ml INJECT ONETIME ONE Stop: 03/11/19 05:30 Last Admin: 03/11/19 05:39 Dose: 2 ml Lidocaine/Epinephrine (Xylocaine 1% With Epinephrine 1:100,000) Confirm Administered Dose 50 ml .ROUTE .STK-MED ONE Stop: 03/10/19 06:23 Lidocaine/Epinephrine (Xylocaine 1% With Epinephrine 1:100,000) Confirm Administered Dose 50 ml .ROUTE .STK-MED ONE Stop: 03/11/19 07:19 Last Admin: 03/11/19 07:28 Dose: 15 ml Linezolid (Zyvox) 600 mg IRR .STK-MED ONE Stop: 03/11/19 07:39 Last Admin: 03/11/19 07:38 Dose: 600 mg Lorazepam (Ativan) 0.5 mg IVPUSH BID [facility] Last Admin: 03/09/19 09:09 Dose: 0.5 mg Lorazepam (Ativan) 0.25 mg IVPUSH BID [facility] Last Admin: 03/10/19 09:09 Dose: 0.25 mg Meropenem (Merrem) Confirm Administered Dose 500 mg .ROUTE .STK-MED ONE Stop: 03/08/19 12:05 Last Admin: 03/08/19 14:00 Dose: 500 mg Meropenem (Merrem) Confirm Administered Dose 500 mg .ROUTE .STK-MED ONE Stop: 03/10/19 06:23 Meropenem (Merrem) Confirm Administered Dose 500 mg .ROUTE .STK-MED ONE Stop: 03/11/19 06:45 Last Admin: 03/11/19 07:38 Dose: 500 mg Methylprednisolone Sodium Succinate (Solu-Medrol) 40 mg IVPUSH Q6H [facility] Last Admin: 03/20/19 09:50 Dose: 40 mg Neostigmine Methylsulfate (Neostigmine) Confirm Administered Dose 5 mg .ROUTE .STK-MED ONE Stop: 03/08/19 12:18 Ondansetron HCl (Zofran) Confirm Administered Dose 4 mg .ROUTE .STK-MED ONE Stop: 03/08/19 12:18 Ondansetron HCl (Zofran) 4 mg IVPUSH Q6H PRN PRN Reason: Nausea/Vomiting Piperacillin Sod/Tazobactam Sod (Zosyn) Confirm Administered Dose 3.375 gm .ROUTE .STK-MED ONE Stop: 03/18/19 21:34 Last Admin: 03/18/19 21:40 Dose: Not Given Propofol (Diprivan 20 Ml) Confirm Administered Dose 200 mg .ROUTE .STK-MED ONE Stop: 03/08/19 12:18 Propofol (Diprivan 20 Ml) Confirm Administered Dose 200 mg .ROUTE .STK-MED ONE Stop: 03/10/19 07:33 Rocuronium [place] (Zemuron) Confirm Administered Dose 50 mg .ROUTE .STK-MED ONE Stop: 03/08/19 12:18 Succinylcholine Chloride (Quelicin) Confirm Administered Dose 200 mg .ROUTE .STK -MED ONE Stop: 03/08/19 12:18 Succinylcholine Chloride (Quelicin) Confirm Administered Dose 200 mg .ROUTE .STK -MED ONE Stop: 03/10/19 07:33 - Exam Quality Assessment: Supplemental Oxygen General: No Acute Distress, Sedated. No: Alert, Cooperative HEENT: Pupils Equal Neck: Supple Lungs: Rhonchi (coarse upper airway sounds). No: Normal Respiratory Effort ( increased work of breathing ) Cardiovascular: Regular Rhythm, Tachycardia GI/Abdominal Exam: Soft, Distended, Abnormal Bowel Sounds (hypoactive ) Extremities: Pedal Edema. No: Increased Warmth Peripheral Pulses: 2+: Dorsalis Pedis (L), Dorsalis Pedis (R) Skin: Warm, Dry Psy/Mental Status: Alert, Normal Affect - Problem List & Annotations (1) Small bowel obstruction due to adhesions SNOMED Code(s): 441097652 Code(s): K56.50 - INTESTNL ADHESIONS, UNSP TO PARTIAL VERSUS COMPLETE OBST Status: Acute Current Visit: Yes (2) Acute kidney injury SNOMED Code(s): 30586785, 72438329 Code(s): N17.9 - ACUTE KIDNEY FAILURE, UNSPECIFIED Status: Acute Current Visit: Yes (3) Schizophrenia SNOMED Code(s): 82417262 Code(s): F20.9 - SCHIZOPHRENIA, UNSPECIFIED Status: Chronic Current Visit : No Qualifiers: Schizophrenia type: unspecified Qualified Code(s): F20.9 - Schizophrenia, unspecified (4) Hypothyroid SNOMED Code(s): 04306427 Code(s): E03.9 - HYPOTHYROIDISM, UNSPECIFIED Status: Chronic Current Visit: No Qualifiers: Hypothyroidism type: acquired Qualified Code(s): E03.9 - Hypothyroidism, unspecified (5) HTN (hypertension) SNOMED Code(s): 08047602 Code(s): I10 - ESSENTIAL (PRIMARY) HYPERTENSION Status: Chronic Current Visit: No Qualifiers: Hypertension type: essential hypertension Qualified Code(s): I10 - Essential (primary) hypertension - Problem List Review Problem List Initiated/Reviewed/Updated: Yes - My Orders Last 24 Hours: My Active Orders 03/21/19 09:42 RT Aerosol Therapy [RC] ASDIRECTED 03/21/19 10:00 Acetylcysteine [Mucomyst 20%] 200 mg NEB BIDRT 03/22/19 09:28 Potassium Chloride Riders [KCL 40 MEQ in Water 100 ML] 40 meq Premix Bag 1 bag IV ONETIME 03/22/19 09:30 Furosemide [Lasix] 20 mg IVPUSH Q12H 03/23/19 05:00 Abdomen 2V AP Flat Upright [CR] DAILY - Plan Plan:: ASSESSMENT AND PLAN - Small bowel obstruction with pneumatosis - status post emergent laparotomy with small bowel resection and right colectomy 03/08. Persistent small bowel obstruction right lower quadrant identified 3 days ago. He is receiving parenteral nutritional support. No bowel movements overnight. -Postoperative care per surgical team -He is receiving TPN -Flat and upright x-ray in the morning -Pain control -Azithromycin 250 mg IV daily for GI motility augmentation per Dr. Monae Acute respiratory failure with hypoxia and hypercapnia - secondary to aspiration with vomiting 03/18. Chest x-ray stable to slightly improved. Secretions are slightly better but still a fairly large quantity. Some evidence for volume overload again today. White blood cell count is now normal. -Continue current ventilator settings -Zosyn added for empiric coverage with aspiration -Mucomyst nebulizers -Diuresis -Vigorous pulmonary toilet -If stable consider spontaneous breathing trial in a.m. Type 2 diabetes mellitus - glucose levels improved with insulin in the TPN. -Continue glucometers every 6 hours -Continue insulin in the TPN -High dose sliding scale Humalog Hypokalemia - potassium level improved with supplementation but I will prophylactically provide additional supplementation with diuresis planned for today. -Supplement this morning -Recheck in the morning Severe schizophrenia - patient is very debilitated because of his psychiatric illness. -Continue low-dose Haldol -Continue regular dose Depakote -low dose lorazepam -Restart oral medications when able Acute kidney injury - resolved -Continue to closely monitor urine output and renal function Maintenance issues - - DVT prophylaxis - mechanical - GI prophylaxis - IV PPI - Nutrition - nothing by mouth, currently receiving TPN for nutritional support - Rodriguez catheter - placed for strict intake and output monitoring with a critical patient Disposition - anticipate discharge home versus more likely the assisted Farhan Nj M.D.
[2019-03-22] MEDS: Furosemide 20 MG/2 ML VIAL IVPUSH SCH ×2 (09:54→22:10)
[2019-03-22] MEDS: 1: AA 5%/Calcium/D15W/Lytes 1,000 ML with MVI, Adult with Vitamin K 10 ML, Chromium/Copp IV SCH ×6 (09:55→21:45)
[2019-03-22] MEDS ORDERED: Potassium Chloride Riders 40 MEQ in Premix Bag 1 BAG IV ONE (10:00)
--- NOTE | 2019-03-22 10:42 | PN ---
DATE OF SERVICE: 03/22/2019 ADDENDUM: ASSESSMENT: 1. Exploratory laparotomy with lysis of extensive adhesions for: a. Small-bowel obstruction. b. Resection portion of adherent abdominal wall including peritoneum, fascia, and muscle. c. Partial resection portion of transverse colon. d. Enterotomy for tube decompression of small bowel. e. Drainage of pelvic abscess. f. Placement of Interceed mesh to limit recurrent adhesion formation between pelvic and abdominal wall. g. Date of surgery: 03/10/2019. Surgeon: Haider Monae MD. 2. Delayed primary closure on 03/12/2019. Surgeon: Dr. Haider Monae. PLAN: 1. Continue same TPN rate and content. 2. Check labs in a.m. 3. We will evaluate p.r.n. or in a.m. Syl Galindo PA-C /[id number]
--- NOTE | 2019-03-22 12:03 | PN ---
DATE OF SERVICE: 03/22/2019 SUBJECTIVE: Tuan remains to be on the ventilator. His secretions remain to be quite high in output but less thick. Vital signs have been stable. Urine output via Rodriguez catheter is 1700. He is getting TPN. Labs this morning hemoglobin 9, white count 11.3, potassium is 3.8. BNP is down a little bit to 687. REVIEW OF SYSTEMS: Remainder of review of systems negative for any pertinent positives and negatives. OBJECTIVE: GENERAL: Tuan Perez is a 58-year-old male on a vent, sedated. VITAL SIGNS: TPR 97.7, 75, 18. Blood pressure 130/59. HEENT: Negative. HEART: Regular rate and rhythm. LUNGS: Diminished bilaterally. ABDOMEN: Soft. Dressing dry and intact. EXTREMITIES: Revealed some peripheral edema. /[id number] ADDENDUM: ASSESSMENT: 1. Exploratory laparotomy with lysis of extensive adhesions for: a. Small-bowel obstruction. b. Resection portion of adherent abdominal wall including peritoneum, fascia, and muscle. c. Partial resection portion of transverse colon. d. Enterotomy for tube decompression of small bowel. e. Drainage of pelvic abscess. f. Placement of Interceed mesh to limit recurrent adhesion formation between pelvic and abdominal wall. g. Date of surgery: 03/10/2019. Surgeon: Haider Monae MD. 2. Delayed primary closure on 03/12/2019. Surgeon: Dr. Haider Monae. PLAN: 1. Continue same TPN rate and content. 2. Check labs in a.m. 3. We will evaluate p.r.n. or in a.m. Syl Galindo PA-C /[id number] BR[place]GET[place]
[2019-03-22] MEDS: Pantoprazole 40 MG Vial IV SCH (18:12)
[2019-03-22] MEDS: Latanoprost 0.005% Ophth Soln 2.5 ML Bottle EYEBOTH SCH (21:05)
--- NOTE | 2019-03-23 02:48 | CRLCR ---
INDICATION: Intubation TECHNIQUE: Chest 1 views COMPARISON: Chest x-ray 03/22/2019 FINDINGS: Cardiovascular and mediastinum: Cardiomegaly with endotracheal tube at the mid trachea. Orogastric tube with tip at the fundus of the stomach. Lungs and pleural spaces: Small bilateral pleural effusions with bibasilar airspace disease and some hazy opacities, greater within the right lung. Bones and soft tissues: No significant findings. IMPRESSION: Cardiomegaly with small bilateral pleural effusions and bilateral airspace disease, greater in the right lung. Compared to the prior examination, mild worsening of right lung airspace disease. Dictated by Jame Morales MD @ Mar 23 2019 2:45AM Signed by Dr. Jame Morales @ Mar 23 2019 2:47AM
--- NOTE | 2019-03-23 02:50 | CRLCR ---
Indication: Small-bowel obstruction Technique: Abdomen 1 view, 3 films Comparison: Abdomen 03/20/2018 Findings/Impression: Orogastric tube is present with the tip in the fundus of the stomach. Skin agus are re-demonstrated in the midline. No dilated loops of large or small intestine. Dictated by Jame Morales MD @ Mar 23 2019 2:47AM Signed by Dr. Jame Morales @ Mar 23 2019 2:48AM
[2019-03-23] MEDS: Piperacillin/Tazobactam/Dext 3.375 GM in Premix Bag 1 BAG IV SCH ×4 (03:48→22:42)
[2019-03-23] MEDS: Metoprolol Tartrate 5 MG/5 ML SDV IV SCH ×3 (05:49→17:32)
[2019-03-23] MEDS: Sodium Chloride 5% Ophth Soln 15 ML Bottle EYEBOTH SCH ×4 (05:50→22:43)
[2019-03-23] MEDS: Acetylcysteine 20% 200 MG/ML 4 ML Nebulizer Soln SDV NEB SCH ×2 (07:03→20:57)
[2019-03-23] MEDS: Albuterol/Ipratropium 3.0-0.5 MG/3 ML Neb Soln INH SCH ×4 (07:03→20:46)
[2019-03-23] MEDS ORDERED: Central Total Parenteral Nutrition Bag SCH (07:15)
[2019-03-23] MEDS: Magnesium Sulfate/Water 2 GM in Premix Bag 1 BAG IV SCH ×3 (08:15→19:23)
[2019-03-23] MEDS: Docusate Sodium 100 MG Cap PO SCH ×2 (08:51→20:46)
[2019-03-23] MEDS: Levothyroxine 100 MCG Vial IVPUSH SCH (08:54)
[2019-03-23] MEDS: Haloperidol Lactate 5 MG/ML SDV IVPUSH SCH ×2 (08:58→20:50)
[2019-03-23] MEDS: Insulin Glargine,Human Rec. Analog 100 Units/ML 3 ML Pen SUBCUT SCH ×2 (09:07→21:02)
[2019-03-23] MEDS: LORazepam 2 MG/ML SDV IVPUSH SCH ×2 (09:12→20:42)
[2019-03-23] MEDS: 1: AA 5%/Calcium/D15W/Lytes 1,000 ML with MVI, Adult with Vitamin K 10 ML, Chromium/Copp IV SCH ×9 (09:19→21:33)
--- NOTE | 2019-03-23 09:38 | PCM.PN ---
- General Info Date of Service: 03/23/19 Subjective Update: There were no acute events overnight. Patient has remained stable on 40% FiO2. Secretions are continuing to decrease but have not resolved. He did have some small bowel movements. He has not had any fevers. White blood cell count is normal. Good response to diuresis yesterday. He lasted about 30 minutes on his CPap trial this morning before he developed tachypnea. Abdominal x-ray does not show any evidence for dilated loops or air-fluid levels. Functional Status: Reports: Other (intubated and sedated ) - Review of Systems General: Denies: Fever - Patient Data Vitals - Most Recent: Last Vital Signs Temp 36.4 C 03/23/19 04:00 Pulse 82 03/23/19 07:03 Resp 18 03/23/19 06:00 BP 136/58 L 03/23/19 06:00 Pulse Ox 95 03/23/19 07:58 Weight - Most Recent: 80.24 kg I&O - Last 24 Hours: Intake & Output 03/22/19 03/23/19 03/23/19 22:59 06:59 14:59 Intake Total 1725 1681 273 Output Total 400 2750 Balance 1325 -1069 273 Lab Results Last 24 Hours: Laboratory Results - last 24 hr 03/23/19 03/23/19 Range/Units 04:05 04:05 WBC 9.9 (4.5-11.0) K/uL RBC 3.06 L (4.30-5.90) M/uL Hgb 8.9 L (12.0-15.0) g/dL Hct 28.9 L (40.0-54.0) % MCV 94 (80-98) fL MCH 29 (27-31) pg MCHC 31 L (32-36) % Plt Count 331 (150-400) K/uL Sodium 146 (140-148) mmol/L Potassium 3.5 L (3.6-5.2) mmol/L Chloride 107 (100-108) mmol/L Carbon Dioxide 31 (21-32) mmol/L Anion Gap 11.5 (5.0-14.0) mmol/L BUN 27 H (7-18) mg/dL Creatinine 1.1 (0.8-1.3) mg/dL Est Cr Clr Drug Dosing 61.29 mL/min Estimated GFR (MDRD) > 60 (>60) Glucose 146 H (74-106) mg/dL Calcium 8.2 L (8.5-10.1) mg/dL Phosphorus 3.9 (2.5-4.9) mg/dL Magnesium 1.6 L (1.8-2.4) mg/dL Total Bilirubin 0.5 (0.2-1.0) mg/dL AST 13 L (15-37) U/L ALT 28 (12-78) U/L Alkaline Phosphatase 106 (46-116) U/L NT-Pro-B Natriuret Pep 816 H (5-125) pg/mL Total Protein 5.4 L (6.4-8.2) g/dL Albumin 2.7 L (3.4-5.0) g/dL Globulin 2.7 (2.3-3.5) g/dL Albumin/Globulin Ratio 1.0 L (1.2-2.2) Quentin Results Last 24 Hours: Microbiology 03/20/19 06:33 Aerobic Blood Culture - Preliminary Blood - Central Line NO GROWTH AFTER 3 DAYS Anaerobic Blood Culture - Preliminary NO GROWTH AFTER 3 DAYS 03/20/19 06:35 Aerobic Blood Culture - Preliminary Blood - Central Line NO GROWTH AFTER 3 DAYS Anaerobic Blood Culture - Preliminary NO GROWTH AFTER 3 DAYS Med Orders - Current: Current Medications Acetylcysteine (Mucomyst 20%) 200 mg NEB BIDRT [facility] Last Admin: 03/23/19 07:03 Dose: 200 mg Albuterol (Proventil Neb Soln) 2.5 mg NEB Q4H PRN PRN Reason: Shortness Of Breath/wheezing Last Admin: 03/10/19 00:24 Dose: 2.5 mg Albuterol/Ipratropium (Duoneb 3.0-0.5 Mg/3 Ml) 3 ml INH QIDRT [facility] Last Admin: 03/23/19 07:03 Dose: 3 ml Dextrose (Glutose 15) 15 gm PO ASDIRECTED PRN PRN Reason: HYPOGLYCEMIA Dextrose/Water (Dextrose 50% In Water) 50 ml IVPUSH ASDIRECTED PRN PRN Reason: HYPOGLYCEMIA Diphenhydramine HCl (Benadryl) 25 mg IVPUSH Q4H PRN PRN Reason: Itching Last Admin: 03/18/19 03:20 Dose: 25 mg Docusate Sodium (Colace) 100 mg PO BID [facility] Last Admin: 03/23/19 08:51 Dose: Not Given Glucagon (Glucagen) 1 mg IM ASDIRECTED PRN PRN Reason: HYPOGLYCEMIA Haloperidol Lactate (Haldol) 2 mg IVPUSH Q4H PRN PRN Reason: Agitation Last Admin: 03/18/19 21:57 Dose: 2 mg Haloperidol Lactate (Haldol) 2.5 mg IVPUSH BID [facility] Last Admin: 03/23/19 08:58 Dose: 2.5 mg Heparin Sodium (Porcine) (Heparin Lock Flush 100 Units/Ml) 500 units FLUSH ASDIRECTED PRN PRN Reason: Keep Vein Open Last Admin: 03/20/19 06:39 Dose: 500 units Valproic Acid 500 mg/ Sodium (Chloride) 55 mls @ 55 mls/hr IV Q8H [facility] Last Admin: 03/23/19 04:42 Dose: 55 mls/hr Propofol (Diprivan 100 Ml) 100 mls @ 2.195 mls/hr IV TITRATE [facility]; Protocol Last Admin: 03/23/19 06:53 Dose: 40 mcg/kg/min, 17.559 mls/hr Heparin Sodium (Porcine) 5,000 (units/ Sodium Chloride) 501 mls @ 0.1 mls/hr IV ASDIRECTED [facility] Last Admin: 03/21/19 13:30 Dose: 1 units/hr, 0.1 mls/hr Sodium Chloride (Normal Saline) 1,000 mls @ 20 mls/hr IV ASDIRECTED [facility] Last Admin: 03/19/19 08:13 Dose: 125 mls/hr Piperacillin/Tazobactam/ (Dextrose 3.375 gm/ Premix) 50 mls @ 100 mls/hr IV Q6H [facility] Last Admin: 03/23/19 03:48 Dose: 100 mls/hr Multivitamins/Minerals 10 ml/Chromium/Copper/Manganese/Seleni/Zn 1 ml/ Amino Ac/ Electrol/Dextrose/Calcium 1,011 mls @ 82 mls/hr IV .BY DURATION [facility] Stop: 03/23/19 20:00 Last Admin: 03/22/19 21:45 Dose: 82 mls/hr Amino Ac/Electrol/Dextrose/Calcium (Clinimix E 5/15) 1,000 mls @ 82 mls/hr IV .BY DURATION [facility] Stop: 03/23/19 20:00 Last Admin: 03/23/19 09:19 Dose: 82 mls/hr Albumin Human (Albumin 25%) 25 gm in 100 mls @ 25 mls/hr IV Q24H [facility] Stop: 03/23/19 11:59 Last Admin: 03/23/19 08:20 Dose: 25 mls/hr Albumin Human (Albumin 25%) 25 gm in 100 mls @ 25 mls/hr IV Q24H [facility] Stop: 03/23/19 15:59 Last Admin: 03/22/19 12:04 Dose: 25 mls/hr Azithromycin 250 mg/ Sodium (Chloride) 150 mls @ 150 mls/hr IV Q24H [facility] Last Admin: 03/22/19 11:20 Dose: 150 mls/hr Magnesium Sulfate 2 gm/ Premix 50 mls @ 25 mls/hr IV Q6H [facility] Stop: 03/26/19 03:59 Last Admin: 03/23/19 08:15 Dose: 25 mls/hr Potassium Chloride 40 meq/ (Premix) 100 mls @ 25 mls/hr IV ONETIME ONE Stop: 03/23/19 13:59 Last Admin: 03/23/19 09:22 Dose: 25 mls/hr Multivitamins/Minerals 10 ml/Chromium/Copper/Manganese/Seleni/Zn 1 ml/ Amino Ac/ Electrol/Dextrose/Calcium 1,011 mls @ 82 mls/hr IV .BY DURATION [facility] Amino Ac/Electrol/Dextrose/Calcium (Clinimix E 5/15) 1,000 mls @ 82 mls/hr IV .BY DURATION [facility] Insulin Glargine (Lantus Solostar) 12 units SUBCUT BID [facility] Last Admin: 03/23/19 09:07 Dose: 12 units Insulin Human Lispro (Humalog) 0 unit SUBCUT ASDIRECTED [facility]; Protocol Last Admin: 03/21/19 09:08 Dose: 3 units Latanoprost (Xalatan 0.005% Ophth Soln) 0 ml EYEBOTH BEDTIME [facility] Last Admin: 03/22/19 21:05 Dose: 1 drop Levothyroxine Sodium (Synthroid) 100 mcg IVPUSH DAILY [facility] Last Admin: 03/23/19 08:54 Dose: 100 mcg Lorazepam (Ativan) 0.5 mg IVPUSH Q4H PRN PRN Reason: Anxiety Last Admin: 03/18/19 22:19 Dose: 0.5 mg Lorazepam (Ativan) 0.5 mg IVPUSH BID [facility] Last Admin: 03/23/19 09:12 Dose: 0.5 mg Metoprolol Tartrate (Lopressor) 5 mg IV Q6H [facility] Last Admin: 03/23/19 05:49 Dose: 5 mg Naloxone HCl (Narcan) 0.1 mg IV ASDIRECTED PRN PRN Reason: decreased respiratory rate Non-Formulary Medication (Total Parenteral Nutrition, Central) 1,000 ml .XX .Continue Order [facility] Stop: 03/23/19 12:00 Ondansetron HCl (Zofran) 4 mg IVPUSH Q4H PRN PRN Reason: Nausea/Vomiting Last Admin: 03/18/19 17:31 Dose: 4 mg Pantoprazole Sodium (Protonix Iv) 40 mg IV Q24H [facility] Last Admin: 03/22/19 18:12 Dose: 40 mg Sodium Chloride (Joseph 128 5% Ophth Soln) 0 ml EYEBOTH QID [facility] Last Admin: 03/23/19 09:22 Dose: 2 drop Discontinued Medications Acetylcysteine (Mucomyst 20%) 400 mg INH BIDRT [facility] Last Admin: 03/12/19 07:48 Dose: 200 mg Acetylcysteine (Mucomyst 20%) 200 mg INH BIDRT [facility] Stop: 03/12/19 23:59 Last Admin: 03/12/19 20:44 Dose: 200 mg Bisacodyl (Dulcolax) 10 mg PO BID [facility] Last Admin: 03/17/19 20:35 Dose: Not Given Bisacodyl (Dulcolax) 10 mg RECTAL ONETIME ONE Stop: 03/17/19 17:01 Last Admin: 03/17/19 17:10 Dose: 10 mg Bupivacaine HCl (Marcaine 0.5%) Confirm Administered Dose 50 ml .ROUTE .STK-MED ONE Stop: 03/10/19 06:23 Bupivacaine HCl (Marcaine 0.5%) Confirm Administered Dose 50 ml .ROUTE .STK-MED ONE Stop: 03/11/19 07:19 Last Admin: 03/11/19 07:28 Dose: 15 ml Ropivacaine 36 ml/Dexamethasone 8 mg/Epinephrine HCl 0.4 mg/ Sodium Chloride 41.6 ml 0 ml NERVRT ASDIRECTED [facility] Last Admin: 03/08/19 15:05 Dose: 80 syringe Ropivacaine 36 ml/Dexamethasone 8 mg/Epinephrine HCl 0.4 mg/ Sodium Chloride 41.6 ml 0 ml NERVRT ASDIRECTED [facility] Last Admin: 03/11/19 07:41 Dose: 80 syringe Dexamethasone (Dexamethasone) Confirm Administered Dose 4 mg .ROUTE .STK-MED ONE Stop: 03/08/19 12:18 Diphenhydramine HCl (Benadryl) 25 mg IVPUSH Q6H PRN PRN Reason: Itching Diphenhydramine HCl (Benadryl) 25 mg PO Q6H PRN PRN Reason: Itching Fentanyl (Sublimaze) Confirm Administered Dose 250 mcg .ROUTE .STK-MED ONE Stop: 03/08/19 12:19 Furosemide (Lasix) 20 mg IVPUSH ONETIME ONE Stop: 03/09/19 21:56 Last Admin: 03/09/19 22:10 Dose: 20 mg Furosemide (Lasix) Confirm Administered Dose 20 mg .ROUTE .STK-MED ONE Stop: 03/09/19 22:05 Last Admin: 03/09/19 22:10 Dose: Not Given Furosemide (Lasix) 20 mg IVPUSH ONETIME ONE Stop: 03/10/19 06:33 Last Admin: 03/10/19 07:20 Dose: 20 mg Furosemide (Lasix) 20 mg IVPUSH ONETIME ONE Stop: 03/12/19 18:01 Last Admin: 03/12/19 17:43 Dose: 20 mg Furosemide (Lasix) 20 mg IVPUSH ONETIME ONE Stop: 03/12/19 07:31 Last Admin: 03/12/19 07:44 Dose: 20 mg Furosemide (Lasix) 10 mg IVPUSH Q12H [facility] Stop: 03/13/19 21:01 Last Admin: 03/13/19 20:29 Dose: 10 mg Furosemide (Lasix) 20 mg IVPUSH NOW ONE Stop: 03/15/19 11:31 Last Admin: 03/15/19 11:38 Dose: 20 mg Furosemide (Lasix) 20 mg IVPUSH ONETIME ONE Stop: 03/16/19 13:31 Last Admin: 03/16/19 14:18 Dose: 20 mg Furosemide (Lasix) 20 mg IVPUSH NOW ONE Stop: 03/17/19 09:16 Last Admin: 03/17/19 09:47 Dose: 20 mg Furosemide (Lasix) 20 mg IVPUSH Q12H [facility] Stop: 03/22/19 21:31 Last Admin: 03/22/19 22:10 Dose: 20 mg Glycopyrrolate (Robinul) Confirm Administered Dose 1 mg .ROUTE .STK-MED ONE Stop: 03/08/19 12:18 Haloperidol Lactate (Haldol) 5 mg IVPUSH BID [facility] Last Admin: 03/09/19 09:06 Dose: 5 mg Heparin Sodium (Porcine) (Heparin Sodium) Confirm Administered Dose 5,000 units .ROUTE .STK-MED ONE Stop: 03/10/19 07:04 Last Admin: 03/10/19 07:57 Dose: Not Given Heparin Sodium (Porcine) (Heparin Lock Flush 100 Units/Ml) Confirm Administered Dose 1,000 units .ROUTE .STK-MED ONE Stop: 03/11/19 07:32 Last Admin: 03/11/19 08:31 Dose: Not Given Heparin Sodium (Porcine) (Heparin Sodium) Confirm Administered Dose 5,000 units .ROUTE .STK-MED ONE Stop: 03/18/19 23:03 Last Admin: 03/19/19 02:36 Dose: Not Given Hydromorphone HCl (Dilaudid Credit Risk Officer 15 Mg In Ns 30 Ml) 0 mg IV ASDIRECTED PRN; Protocol PRN Reason: PAIN Last Admin: 03/16/19 16:43 Dose: 15 mg Sodium Chloride (Normal Saline) 1,000 mls @ 1,000 mls/hr IV ASDIRECTED [facility] Last Admin: 03/08/19 10:02 Dose: 1,000 mls/hr Ampicillin Sodium/Sulbactam (Sodium 1.5 gm/ Sodium Chloride) 50 mls @ 100 mls/ hr IV Q6H [facility] Last Admin: 03/08/19 13:30 Dose: 100 mls/hr Aztreonam 1 gm/ Sodium (Chloride) 50 mls @ 100 mls/hr IV Q12H [facility] Last Admin: 03/08/19 13:30 Dose: 100 mls/hr Lactated Ringer's (Ringers, Lactated) 1,000 mls @ 150 mls/hr IV ASDIRECTED [facility] Last Admin: 03/08/19 13:31 Dose: 150 mls/hr Lactated Ringer's (Ringers, Lactated) Confirm Administered Dose 1,000 mls @ as directed .ROUTE .STK-MED ONE Stop: 03/08/19 15:16 Lactated Ringer's (Ringers, Lactated) 1,000 mls @ 100 mls/hr IV ASDIRECTED [facility] Last Admin: 03/09/19 03:26 Dose: 100 mls/hr Dextrose/Lactated Ringer's (Dextrose 5%-Lactated Ringers) 1,000 mls @ 100 mls/ hr IV ASDIRECTED [facility] Stop: 03/12/19 11:59 Last Admin: 03/11/19 23:35 Dose: 100 mls/hr Ampicillin Sodium/Sulbactam (Sodium 3 gm/ Sodium Chloride) 100 mls @ 200 mls/ hr IV Q6H [facility] Last Admin: 03/13/19 05:19 Dose: 200 mls/hr Aztreonam 1 gm/ Sodium (Chloride) 50 mls @ 100 mls/hr IV Q8H [facility] Last Admin: 03/13/19 04:23 Dose: 100 mls/hr Potassium Chloride 20 meq/Lidocaine HCl 2 ml/ Sodium Chloride 112 mls @ 56 mls/ hr IV Q2H [facility] Stop: 03/09/19 15:59 Last Admin: 03/09/19 17:30 Dose: 56 mls/hr Lactated Ringer's (Ringers, Lactated) 750 mls @ 750 mls/hr IV BOLUS ONE Stop: 03/09/19 16:25 Last Admin: 03/09/19 15:53 Dose: 750 mls/hr Lactated Ringer's (Ringers, Lactated) 750 mls @ 999 mls/hr IV BOLUS ONE Stop: 03/09/19 21:15 Last Admin: 03/09/19 21:08 Dose: 999 mls/hr Heparin Sodium (Porcine) 5,000 (units/ Sodium Chloride) 501 mls @ 5 mls/hr IV ASDIRECTED [facility] Last Admin: 03/12/19 13:58 Dose: 5 mls/hr Propofol (Diprivan 100 Ml) 100 mls @ 2.191 mls/hr IV TITRATE [facility]; Protocol Last Titration: 03/15/19 07:18 Dose: 0 mcg/kg/min, 0 mls/hr Linezolid 600 mg/ Premix 300 mls @ 300 mls/hr IV Q12H [facility] Last Admin: 03/11/19 21:53 Dose: 300 mls/hr Potassium Chloride 20 meq/Lidocaine HCl 2 ml/ Sodium Chloride 112 mls @ 56 mls/ hr IV Q2H [facility] Stop: 03/10/19 16:29 Last Admin: 03/10/19 16:07 Dose: 56 mls/hr Potassium Chloride 20 meq/ (Premix) 0 mls @ 50 mls/hr IV Q2H [facility] Stop: 03/11/19 07:28 Last Admin: 03/11/19 07:32 Dose: 50 mls/hr Magnesium Sulfate 2 gm/ Premix 50 mls @ 25 mls/hr IV Q6H [facility] Last Admin: 03/12/19 04:27 Dose: 25 mls/hr Potassium Phosphate 20 mmole/ (Sodium Chloride) 256.6667 mls @ 85 mls/hr IV Q3H [facility] Stop: 03/11/19 17:59 Last Admin: 03/11/19 14:42 Dose: 85 mls/hr Multivitamins/Minerals 10 ml/Chromium/Copper/Manganese/Seleni/Zn 1 ml/ Amino Ac/ Electrol/Dextrose/Calcium 1,011 mls @ 82 mls/hr IV .BY DURATION [facility] Last Admin: 03/13/19 12:34 Dose: 82 mls/hr Amino Ac/Electrol/Dextrose/Calcium (Clinimix E 5/15) 1,000 mls @ 82 mls/hr IV .BY DURATION [facility] Last Admin: 03/14/19 01:20 Dose: 82 mls/hr Sodium Chloride (Normal Saline) 1,000 mls @ 20 mls/hr IV ASDIRECTED [facility] Last Admin: 03/13/19 22:58 Dose: 20 mls/hr Potassium Phosphate 20 mmole/ (Sodium Chloride) 256.6667 mls @ 85.556 mls/hr IV Q3H [facility] Stop: 03/12/19 16:59 Last Admin: 03/12/19 14:49 Dose: 85.556 mls/hr Potassium Chloride 20 meq/ (Premix) 100 mls @ 50 mls/hr IV ONETIME ONE Stop: 03/13/19 10:59 Last Admin: 03/13/19 09:29 Dose: 50 mls/hr Potassium Phosphate 30 mmole/ (Sodium Chloride) 110 mls @ 30 mls/hr IV ONETIME ONE Stop: 03/13/19 14:39 Last Admin: 03/13/19 12:14 Dose: 30 mls/hr Linezolid 600 mg/ Premix 300 mls @ 300 mls/hr IV Q12H [facility] Last Admin: 03/20/19 09:52 Dose: 300 mls/hr Magnesium Sulfate 2 gm/ Premix 50 mls @ 25 mls/hr IV Q6H [facility] Stop: 03/16/19 03:59 Last Admin: 03/16/19 01:59 Dose: 25 mls/hr Azithromycin 250 mg/ Sodium (Chloride) 150 mls @ 150 mls/hr IV Q12H [facility] Azithromycin 250 mg/ Sodium (Chloride) 150 mls @ 150 mls/hr IV Q24H [facility] Last Admin: 03/17/19 11:28 Dose: 150 mls/hr Multivitamins/Minerals 10 ml/Chromium/Copper/Manganese/Seleni/Zn 1 ml/ Amino Ac/ Electrol/Dextrose/Calcium 1,011 mls @ 82 mls/hr IV .BY DURATION [facility] Stop: 03/18/19 14:59 Last Admin: 03/17/19 14:26 Dose: 82 mls/hr Amino Ac/Electrol/Dextrose/Calcium (Clinimix E 5/15) 1,000 mls @ 82 mls/hr IV .BY DURATION [facility] Stop: 03/18/19 14:59 Last Admin: 03/18/19 03:38 Dose: 82 mls/hr Multivitamins/Minerals 10 ml/Chromium/Copper/Manganese/Seleni/Zn 1 ml/ Amino Ac/ Electrol/Dextrose/Calcium 1,011 mls @ 80 mls/hr IV .BY DURATION [facility] Last Admin: 03/18/19 16:05 Dose: 40 mls/hr Amino Ac/Electrol/Dextrose/Calcium (Clinimix E 5/15) 1,000 mls @ 40 mls/hr IV .BY DURATION [facility] Piperacillin Sod/Tazobactam (Sod 3.375 gm/ Sodium Chloride) 50 mls @ 100 mls/ hr IV Q6H [facility] Last Admin: 03/19/19 04:17 Dose: 100 mls/hr Sodium Chloride (Normal Saline) Confirm Administered Dose 50 mls @ as directed .ROUTE .STK-MED ONE Stop: 03/18/19 21:35 Last Admin: 03/18/19 21:40 Dose: Not Given Propofol (Diprivan 100 Ml) Confirm Administered Dose 100 mls @ as directed .ROUTE .STK-MED ONE Stop: 03/18/19 23:04 Last Admin: 03/19/19 01:04 Dose: Not Given Sodium Chloride (Normal Saline) 500 mls @ 999 mls/hr IV .BOLUS ONE Stop: 03/19/19 00:00 Last Admin: 03/19/19 00:00 Dose: 999 mls/hr Sodium Chloride (Normal Saline) 100 mls @ 4 mls/sec IV ASDIRECTED [facility] Stop: 03/19/19 10:00 Last Admin: 03/19/19 07:45 Dose: 4 mls/sec Multivitamins/Minerals 10 ml/Chromium/Copper/Manganese/Seleni/Zn 1 ml/ Amino Ac/ Electrol/Dextrose/Calcium 1,011 mls @ 80 mls/hr IV .BY DURATION [facility] Stop: 03/19/19 20:00 Amino Ac/Electrol/Dextrose/Calcium (Clinimix E 5/15) 1,000 mls @ 80 mls/hr IV .BY DURATION [facility] Stop: 03/19/19 20:00 Last Admin: 03/19/19 08:12 Dose: 80 mls/hr Potassium Chloride 20 meq/ (Premix) 100 mls @ 50 mls/hr IV ONETIME ONE Stop: 03/21/19 10:59 Last Admin: 03/21/19 09:29 Dose: 50 mls/hr Potassium Chloride 40 meq/ (Premix) 100 mls @ 25 mls/hr IV ONETIME ONE Stop: 03/22/19 13:59 Last Admin: 03/22/19 10:01 Dose: 25 mls/hr Insulin Glargine (Lantus Solostar) 10 units SUBCUT BID [facility] Last Admin: 03/16/19 09:27 Dose: 10 unit Insulin Glargine (Lantus Solostar) 14 units SUBCUT BID [facility] Last Admin: 03/18/19 09:06 Dose: 14 units Insulin Glargine (Lantus Solostar) 7 units SUBCUT BID [facility] Stop: 03/18/19 21:01 Last Admin: 03/18/19 21:25 Dose: Not Given Insulin Human Lispro (Humalog) 0 unit SUBCUT Q6H PRN; Protocol PRN Reason: MEDIUM CORRECTIONAL DOSING Last Admin: 03/14/19 17:42 Dose: 7 units Insulin Human Lispro (Humalog) 15 unit SUBCUT ONETIME ONE Stop: 03/14/19 12:05 Last Admin: 03/14/19 12:10 Dose: 15 units Insulin Human Lispro (Humalog) 0 unit SUBCUT ONETIME ONE Stop: 03/15/19 00:16 Last Admin: 03/15/19 00:25 Dose: 12 units Iopamidol (Isovue-370 (76%)) 100 ml IV . DIRECTED [facility] Stop: 03/19/19 10:00 Last Admin: 03/19/19 07:45 Dose: 100 ml Lidocaine HCl (Xylocaine-Mpf 1%) 5 ml INJECT ONETIME ONE Stop: 03/11/19 05:30 Last Admin: 03/11/19 05:39 Dose: 2 ml Lidocaine/Epinephrine (Xylocaine 1% With Epinephrine 1:100,000) Confirm Administered Dose 50 ml .ROUTE .STK-MED ONE Stop: 03/10/19 06:23 Lidocaine/Epinephrine (Xylocaine 1% With Epinephrine 1:100,000) Confirm Administered Dose 50 ml .ROUTE .STK-MED ONE Stop: 03/11/19 07:19 Last Admin: 03/11/19 07:28 Dose: 15 ml Linezolid (Zyvox) 600 mg IRR .STK-MED ONE Stop: 03/11/19 07:39 Last Admin: 03/11/19 07:38 Dose: 600 mg Lorazepam (Ativan) 0.5 mg IVPUSH BID [facility] Last Admin: 03/09/19 09:09 Dose: 0.5 mg Lorazepam (Ativan) 0.25 mg IVPUSH BID [facility] Last Admin: 03/10/19 09:09 Dose: 0.25 mg Meropenem (Merrem) Confirm Administered Dose 500 mg .ROUTE .STK-MED ONE Stop: 03/08/19 12:05 Last Admin: 03/08/19 14:00 Dose: 500 mg Meropenem (Merrem) Confirm Administered Dose 500 mg .ROUTE .STK-MED ONE Stop: 03/10/19 06:23 Meropenem (Merrem) Confirm Administered Dose 500 mg .ROUTE .STK-MED ONE Stop: 03/11/19 06:45 Last Admin: 03/11/19 07:38 Dose: 500 mg Methylprednisolone Sodium Succinate (Solu-Medrol) 40 mg IVPUSH Q6H [facility] Last Admin: 03/20/19 09:50 Dose: 40 mg Neostigmine Methylsulfate (Neostigmine) Confirm Administered Dose 5 mg .ROUTE .STK-MED ONE Stop: 03/08/19 12:18 Non-Formulary Medication (Total Parenteral Nutrition, Central) 1,000 ml .XX .Continue Order [facility] Stop: 03/22/19 12:00 Ondansetron HCl (Zofran) Confirm Administered Dose 4 mg .ROUTE .STK-MED ONE Stop: 03/08/19 12:18 Ondansetron HCl (Zofran) 4 mg IVPUSH Q6H PRN PRN Reason: Nausea/Vomiting Piperacillin Sod/Tazobactam Sod (Zosyn) Confirm Administered Dose 3.375 gm .ROUTE .STK-MED ONE Stop: 03/18/19 21:34 Last Admin: 03/18/19 21:40 Dose: Not Given Propofol (Diprivan 20 Ml) Confirm Administered Dose 200 mg .ROUTE .STK-MED ONE Stop: 03/08/19 12:18 Propofol (Diprivan 20 Ml) Confirm Administered Dose 200 mg .ROUTE .STK-MED ONE Stop: 03/10/19 07:33 Rocuronium [place] (Zemuron) Confirm Administered Dose 50 mg .ROUTE .STK-MED ONE Stop: 03/08/19 12:18 Succinylcholine Chloride (Quelicin) Confirm Administered Dose 200 mg .ROUTE .STK -MED ONE Stop: 03/08/19 12:18 Succinylcholine Chloride (Quelicin) Confirm Administered Dose 200 mg .ROUTE .STK -MED ONE Stop: 03/10/19 07:33 - Exam Quality Assessment: Supplemental Oxygen, Central Line/PICC, Urine Catheter, DVT Prophylaxis, Restraints General: No Acute Distress, Sedated. No: Alert HEENT: Pupils Equal Neck: Supple Lungs: Clear to Auscultation, Normal Respiratory Effort, Decreased Breath Sounds (right lung base) Cardiovascular: Regular Rate, Regular Rhythm GI/Abdominal Exam: Soft, No Distention, Abnormal Bowel Sounds (hypoactive ) Extremities: Pedal Edema. No: Increased Warmth Skin: Warm, Dry Psy/Mental Status: No: Alert, Agitated - Problem List & Annotations (1) Small bowel obstruction due to adhesions SNOMED Code(s): 561861841 Code(s): K56.50 - INTESTNL ADHESIONS, UNSP TO PARTIAL VERSUS COMPLETE OBST Status: Acute Current Visit: Yes (2) Acute kidney injury SNOMED Code(s): 52150775, 41199399 Code(s): N17.9 - ACUTE KIDNEY FAILURE, UNSPECIFIED Status: Acute Current Visit: Yes (3) Schizophrenia SNOMED Code(s): 05586887 Code(s): F20.9 - SCHIZOPHRENIA, UNSPECIFIED Status: Chronic Current Visit : No Qualifiers: Schizophrenia type: unspecified Qualified Code(s): F20.9 - Schizophrenia, unspecified (4) Hypothyroid SNOMED Code(s): 45244373 Code(s): E03.9 - HYPOTHYROIDISM, UNSPECIFIED Status: Chronic Current Visit: No Qualifiers: Hypothyroidism type: acquired Qualified Code(s): E03.9 - Hypothyroidism, unspecified (5) HTN (hypertension) SNOMED Code(s): 83184382 Code(s): I10 - ESSENTIAL (PRIMARY) HYPERTENSION Status: Chronic Current Visit: No Qualifiers: Hypertension type: essential hypertension Qualified Code(s): I10 - Essential (primary) hypertension - Problem List Review Problem List Initiated/Reviewed/Updated: Yes - My Orders Last 24 Hours: My Active Orders 03/23/19 09:45 Furosemide [Lasix] 20 mg IVPUSH Q12H 03/23/19 16:00 POTASSIUM,K [CHEM] Timed 03/24/19 05:00 BLOOD GAS ARTERIAL [BG] Timed - Plan Plan:: ASSESSMENT AND PLAN - Acute respiratory failure with hypoxia and hypercapnia - secondary to aspiration with vomiting 03/18. Chest x-ray stable. Secretions better again today. Volume status improving but still some room for diuresis. Did better with spontaneous breathing trial today but not ready for extubation. White blood cell count now normal. -Continue current ventilator settings -Zosyn added for empiric coverage with aspiration -Mucomyst nebulizers -Diuresis -Vigorous pulmonary toilet -Daily breathing trials Small bowel obstruction with pneumatosis - status post emergent laparotomy with small bowel resection and right colectomy 03/08. X-rays morning does not show evidence for ongoing obstruction. -Postoperative care per surgical team -He is receiving TPN -Pain control -Azithromycin 250 mg IV daily for GI motility augmentation per Dr. Monae Type 2 diabetes mellitus - blood sugar levels have been very acceptable. -Continue glucometers every 6 hours -Continue insulin in the TPN -High dose sliding scale Humalog Hypokalemia - potassium level improved with supplementation but will need additional supplementation today. -Supplement this morning -Recheck in the morning Severe schizophrenia - patient is very debilitated because of his psychiatric illness. -Continue low-dose Haldol -Continue regular dose Depakote -low dose lorazepam -Restart oral medications when able Acute kidney injury - resolved -Continue to closely monitor urine output and renal function Maintenance issues - - DVT prophylaxis - mechanical - GI prophylaxis - IV PPI - Nutrition - nothing by mouth, currently receiving TPN for nutritional support - Rodriguez catheter - placed for strict intake and output monitoring with a critical patient Disposition - anticipate discharge home versus more likely the custodial Farhan Nj M.D.
[2019-03-23] MEDS: Furosemide 20 MG/2 ML VIAL IVPUSH SCH ×2 (09:54→22:47)
[2019-03-23] MEDS ORDERED: Potassium Chloride Riders 40 MEQ in Premix Bag 1 BAG IV ONE (10:00)
--- NOTE | 2019-03-23 11:25 | PN ---
DATE OF SERVICE: 03/18/2019 The patient has been afebrile with stable vital signs. He is more alert and increasingly cooperative. Blood gases look good on BiPAP and presently he is on room air alone. He appears to be doing well. The patient did move his bowels several times, so we will discontinue the Dulcolax and schedule oral tablets and begin a full liquid diet today and with that we will be back down TPN rate as well. PLAN: At this point, maximize his activities, work with pulmonary toilet, have Physical Therapy see him for postop rehab. Haider Monae MD /[id number]
--- NOTE | 2019-03-23 11:28 | PN ---
DATE OF SERVICE: 03/10/2019 SUBJECTIVE: Tuan is being weaned off the respirator this morning. Labs; magnesium 1.6, potassium 3.5, and hemoglobin 8.9. Vital signs have been stable. No other condition or concerns to report. OBJECTIVE: GENERAL: Tuan Perez is a 58-year-old male. EYES: Eyes are open today. VITAL SIGNS: TPR 97.5, 81, 18, and blood pressure 136/58. HEART: Regular rate and rhythm. LUNGS: Decreased breath sounds. ABDOMEN: Dressing dry and intact. EXTREMITIES: Trace edema. ASSESSMENT: 1. Exploratory laparotomy with lysis of extensive adhesions for. a. Small bowel obstruction. b. Resection of portion of adherent abdominal wall including peritoneal fascia and muscle. c. Partial resection of portion of transverse colon. d. Enterotomy for tube decompression of small bowel. e. Drainage of pelvic abscess. f. Placement of Interceed mesh to limit recurrent adhesion formation between pelvic and abdominal diamond. Date of surgery, 03/10/2019. Surgeon, Haider Monae MD. 1. Delayed primary closure on 03/12/2019. Surgeon, Haider Monae MD. 2. TPN therapy. 3. Aspiration. 4. Ventilation for respiratory distress. PLAN: 1. Rx magnesium 2 g IV q.6 hours x72 hours. 2. Potassium chloride IV 40 mEq one time. 3. Continue same TPN rate and content. 4. Check CBC, CMP, and phos in a.m. 5. Will evaluate for PEG tube and guardian will need to be contacted prior to procedure if indicated. 6. We will evaluate p.r.n. or in a.m. Syl Galindo PA-C /[id number]
--- NOTE | 2019-03-23 11:49 | PN ---
DATE OF SERVICE: 03/19/2019 Overnight, the patient developed a larger volume of emesis and appeared to probably aspirate. Following that episode, he desaturated and was intubated. Presently, he is on ventilator. Oxygenation appears to be gradually improving. The CT scan showed bibasilar infiltrates along with small pleural effusion. No pulmonary embolism was seen on the chest CT. His abdomen is mildly distended. NG output has only been moderate since initial large amount of output. The CT of the abdomen shows narrowing at the anastomotic site. The patient's original surgery was noted for showing everything being extremely edematous, and I suspect that is what is going on with that anastomosis. This case was discussed with Dr. Jaffe. We will take a go-slow approach with this case in terms of any reoperative issues with TPN back up to 80 an hour, and we will leave the NG tube in for some period of time letting the edema gradually go down hopefully, avoiding a second operation. Haider Monae MD /[id number]
--- NOTE | 2019-03-23 14:03 | OR ---
DATE OF PROCEDURE: 03/20/2019 PREOPERATIVE DIAGNOSIS: Indication for changing central line location. POSTOPERATIVE DIAGNOSIS: Indication for changing central line location. OPERATIVE PROCEDURE: Insertion of right subclavian vein triple-lumen catheter ([id number]). ANESTHESIA: Local. INDICATION FOR PROCEDURE: The patient is several days into the ICU stay and at this point, the plan is to proceed with a central line change to prevent probable sepsis. Potential risks were reviewed with the patient's guardian yesterday and she wishes to proceed. DETAILS OF PROCEDURE: In the ICU bed, the right upper chest and neck areas were prepped and draped and anesthetized with 1% lidocaine. The right subclavian vein was cannulated. A guidewire was passed. Over the guidewire, a triple-lumen catheter was positioned. Good in and outflow was noted through the ports, which were flushed with heparinized saline, and catheter was sutured to the skin with some 3-0 silk stitch. Chest x-ray is pending. There were no evident complications. Haider Monae MD /[id number]
[2019-03-23] MEDS: Insulin Lispro 100 Unit/ML 3 ML KwikPen SUBCUT SCH (15:11)
[2019-03-23] MEDS: Pantoprazole 40 MG Vial IV SCH (17:32)
[2019-03-23] MEDS: Latanoprost 0.005% Ophth Soln 2.5 ML Bottle EYEBOTH SCH (20:54)
[2019-03-24] MEDS: Metoprolol Tartrate 5 MG/5 ML SDV IV SCH ×4 (00:15→18:06)
[2019-03-24] MEDS: Magnesium Sulfate/Water 2 GM in Premix Bag 1 BAG IV SCH ×2 (01:08→08:07)
[2019-03-24] MEDS: Piperacillin/Tazobactam/Dext 3.375 GM in Premix Bag 1 BAG IV SCH ×4 (03:12→22:01)
--- NOTE | 2019-03-24 03:24 | CRLCR ---
INDICATION: Intubation TECHNIQUE: Chest 1 views COMPARISON: Chest x-ray 03/23/2019 FINDINGS: Cardiovascular and mediastinum: Cardiomegaly with endotracheal tube at the distal trachea. Enteric tube at the fundus of the stomach. Lungs and pleural spaces: Slight haziness bilateral lower lungs consistent with small pleural effusions with patchy bilateral airspace opacities. Bones and soft tissues: No significant findings. IMPRESSION: Patchy bilateral airspace opacities and small bilateral pleural effusions, fairly similar to the prior exam. Dictated by Jame Morales MD @ Mar 24 2019 3:20AM Signed by Dr. Jame Morales @ Mar 24 2019 3:22AM
[2019-03-24] MEDS: Sodium Chloride 5% Ophth Soln 15 ML Bottle EYEBOTH SCH ×4 (05:52→21:20)
[2019-03-24] MEDS: Acetylcysteine 20% 200 MG/ML 4 ML Nebulizer Soln SDV NEB SCH ×2 (07:04→20:41)
[2019-03-24] MEDS: Albuterol/Ipratropium 3.0-0.5 MG/3 ML Neb Soln INH SCH ×4 (07:04→20:40)
--- NOTE | 2019-03-24 07:55 | PN ---
DATE OF SERVICE: 03/20/2019 The patient has had T-max of 99.6 but for the most part is running in the 98 to 99 level, heart rate is presently in the 90s, and blood pressure is satisfactory. Urine output has been satisfactory at 2200 mL over the last 24 hours. NG output is moderate, and no flatus or bowel movement has been noted over last 24 hours. Labs show white count of 20,000, which is down somewhat from yesterday. The patient remains ventilated on assist control mode. Weaning has not been attempted as of yet. Blood gases look good with oxygenation remaining reasonably satisfactory. Chest x-ray is pending this morning. A new central line was placed empirically to avoid infectious complications this morning without incident. At this point, with hemoglobin at 8.2, I will ask Dr. Jaffe if he wishes to consider transfusing the patient. Otherwise, albumin was quite low, we will supplement that. I will continue TPN and nasogastric suction. The patient's present obstruction is likely related to edema at the anastomosis. This should likely be able to be treated nonoperatively. If things are not opening up by midweek, might consider a gastrostomy tube, which will make the transition from the gastric suctioning much safer and more efficient, as well as easier to manage. This was discussed with Dr. Jaffe yesterday and otherwise continue supportive care per Dr. Jaffe and the hospitalist. Haider Monae MD /[id number]
[2019-03-24] MEDS: Docusate Sodium 100 MG Cap PO SCH ×2 (08:10→20:27)
[2019-03-24] MEDS: LORazepam 2 MG/ML SDV IVPUSH SCH ×2 (08:30→20:39)
[2019-03-24] MEDS: Haloperidol Lactate 5 MG/ML SDV IVPUSH SCH ×2 (08:30→20:40)
[2019-03-24] MEDS: Levothyroxine 100 MCG Vial IVPUSH SCH (08:31)
[2019-03-24] MEDS: Furosemide 20 MG/2 ML VIAL IVPUSH SCH ×2 (09:18→18:06)
[2019-03-24] MEDS: Insulin Glargine,Human Rec. Analog 100 Units/ML 3 ML Pen SUBCUT SCH ×2 (09:51→20:41)
[2019-03-24] MEDS ORDERED: Potassium Chloride Riders 40 MEQ in Premix Bag 1 BAG IV ONE (10:00)
[2019-03-24] MEDS: 1: AA 5%/Calcium/D15W/Lytes 1,000 ML with MVI, Adult with Vitamin K 10 ML, Chromium/Copp IV SCH ×6 (10:05→22:01)
[2019-03-24] MEDS: Heparin Sodium 5,000 UNITS in Sodium Chloride 0.9% 500 ML IV SCH (13:26)
[2019-03-24] MEDS ORDERED: Central Total Parenteral Nutrition Bag SCH (13:30)
--- NOTE | 2019-03-24 15:24 | PCM.PN ---
- General Info Date of Service: 03/24/19 Subjective Update: No acute events overnight. The patient remains intubated and sedated. He did not do well with his weaning trial this morning and lasted only about 10 minutes before his respiratory rate and heart rate increased significantly. He continues to have secretions though they are more thin than they had been in recent days. NG tube continues to stump clear greenish fluid. He is having loose bowel movements. Good response to diuresis yesterday but unfortunately was about that neutral for in and out. Chest x-ray stable. Functional Status: Reports: Pain Controlled - Patient Data Vitals - Most Recent: Last Vital Signs Temp 36.0 C 03/24/19 06:00 Pulse 88 03/24/19 14:40 Resp 18 03/24/19 06:00 BP 119/54 L 03/24/19 11:58 Pulse Ox 92 L 03/24/19 07:33 Weight - Most Recent: 80.24 kg I&O - Last 24 Hours: Intake & Output 03/24/19 03/24/19 03/24/19 06:59 14:59 22:59 Intake Total 2152 Output Total 1950 Balance 202 Lab Results Last 24 Hours: Laboratory Results - last 24 hr 03/20/19 03/23/19 03/24/19 Range/Units 08:10 15:49 04:00 WBC 9.1 (4.5-11.0) K/uL RBC 3.02 L (4.30-5.90) M/uL Hgb 8.8 L (12.0-15.0) g/dL Hct 28.6 L (40.0-54.0) % MCV 95 (80-98) fL MCH 29 (27-31) pg MCHC 31 L (32-36) % Plt Count 331 (150-400) K/uL Puncture Site ABG pH (7.350-7.450) ABG pCO2 (35.0-42.0) mmHg ABG pO2 (75.0-100.0) mmHg ABG HCO3 (22.0-26.0) mmol/L ABG Total CO2 (23.0-27.0) mmol/L ABG O2 Saturation (95.0-98.0) % ABG O2 Content (15.0-23.0) %vol ABG Base Excess mm/L ABG Hemoglobin (13.5-18.0) g/dL ABG Oxyhemoglobin % ABG Carboxyhemoglobin (0.0-1.6) % ABG Methemoglobin % Andrew Test O2 Delivery Device Sodium (140-148) mmol/L Potassium 3.8 (3.6-5.2) mmol/L Chloride (100-108) mmol/L Carbon Dioxide (21-32) mmol/L Anion Gap (5.0-14.0) mmol/L BUN (7-18) mg/dL Creatinine (0.8-1.3) mg/dL Est Cr Clr Drug Dosing mL/min Estimated GFR (MDRD) (>60) Glucose (74-106) mg/dL Calcium (8.5-10.1) mg/dL Phosphorus (2.5-4.9) mg/dL Total Bilirubin (0.2-1.0) mg/dL AST (15-37) U/L ALT (12-78) U/L Alkaline Phosphatase (46-116) U/L Total Protein (6.4-8.2) g/dL Albumin (3.4-5.0) g/dL Globulin (2.3-3.5) g/dL Albumin/Globulin Ratio (1.2-2.2) Crossmatch See Detail 03/24/19 03/24/19 Range/Units 04:00 05:00 WBC (4.5-11.0) K/uL RBC (4.30-5.90) M/uL Hgb (12.0-15.0) g/dL Hct (40.0-54.0) % MCV (80-98) fL MCH (27-31) pg MCHC (32-36) % Plt Count (150-400) K/uL Puncture Site A-line ABG pH 7.452 H (7.350-7.450) ABG pCO2 41.2 (35.0-42.0) mmHg ABG pO2 63.0 L (75.0-100.0) mmHg ABG HCO3 28.4 H (22.0-26.0) mmol/L ABG Total CO2 26.6 (23.0-27.0) mmol/L ABG O2 Saturation 91.3 L (95.0-98.0) % ABG O2 Content 10.9 L (15.0-23.0) %vol ABG Base Excess 4.5 mm/L ABG Hemoglobin 8.6 L (13.5-18.0) g/dL ABG Oxyhemoglobin 89.5 % ABG Carboxyhemoglobin 1.2 (0.0-1.6) % ABG Methemoglobin 0.8 % Andrew Test Not performed O2 Delivery Device Ventilator Sodium 144 (140-148) mmol/L Potassium 3.6 (3.6-5.2) mmol/L Chloride 107 (100-108) mmol/L Carbon Dioxide 29 (21-32) mmol/L Anion Gap 8.5 (5.0-14.0) mmol/L BUN 31 H (7-18) mg/dL Creatinine 1.2 (0.8-1.3) mg/dL Est Cr Clr Drug Dosing 56.19 mL/min Estimated GFR (MDRD) > 60 (>60) Glucose 151 H (74-106) mg/dL Calcium 8.3 L (8.5-10.1) mg/dL Phosphorus 3.9 (2.5-4.9) mg/dL Total Bilirubin 0.5 (0.2-1.0) mg/dL AST 11 L (15-37) U/L ALT 24 (12-78) U/L Alkaline Phosphatase 126 H (46-116) U/L Total Protein 5.8 L (6.4-8.2) g/dL Albumin 3.0 L (3.4-5.0) g/dL Globulin 2.8 (2.3-3.5) g/dL Albumin/Globulin Ratio 1.1 L (1.2-2.2) Crossmatch Quentin Results Last 24 Hours: Microbiology 03/20/19 06:33 Aerobic Blood Culture - Preliminary Blood - Central Line NO GROWTH AFTER 4 DAYS Anaerobic Blood Culture - Preliminary NO GROWTH AFTER 4 DAYS 03/20/19 06:35 Aerobic Blood Culture - Preliminary Blood - Central Line NO GROWTH AFTER 4 DAYS Anaerobic Blood Culture - Preliminary NO GROWTH AFTER 4 DAYS Med Orders - Current: Current Medications Acetylcysteine (Mucomyst 20%) 200 mg NEB BIDRT [facility] Last Admin: 03/24/19 07:04 Dose: 200 mg Albuterol (Proventil Neb Soln) 2.5 mg NEB Q4H PRN PRN Reason: Shortness Of Breath/wheezing Last Admin: 03/10/19 00:24 Dose: 2.5 mg Albuterol/Ipratropium (Duoneb 3.0-0.5 Mg/3 Ml) 3 ml INH QIDRT [facility] Last Admin: 03/24/19 14:35 Dose: 3 ml Dextrose (Glutose 15) 15 gm PO ASDIRECTED PRN PRN Reason: HYPOGLYCEMIA Dextrose/Water (Dextrose 50% In Water) 50 ml IVPUSH ASDIRECTED PRN PRN Reason: HYPOGLYCEMIA Dimethicone/Zinc Oxide (Rash Relief-Zinc Oxide [place]) 0 gm TOP ASDIRECTED PRN PRN Reason: Perineal Comfort Measure Diphenhydramine HCl (Benadryl) 25 mg IVPUSH Q4H PRN PRN Reason: Itching Last Admin: 03/18/19 03:20 Dose: 25 mg Docusate Sodium (Colace) 100 mg PO BID [facility] Last Admin: 03/24/19 08:10 Dose: Not Given Furosemide (Lasix) 20 mg IVPUSH Q8H [facility] Stop: 03/25/19 02:01 Last Admin: 03/24/19 09:18 Dose: 20 mg Glucagon (Glucagen) 1 mg IM ASDIRECTED PRN PRN Reason: HYPOGLYCEMIA Haloperidol Lactate (Haldol) 2 mg IVPUSH Q4H PRN PRN Reason: Agitation Last Admin: 03/18/19 21:57 Dose: 2 mg Haloperidol Lactate (Haldol) 2.5 mg IVPUSH BID [facility] Last Admin: 03/24/19 08:30 Dose: 2.5 mg Heparin Sodium (Porcine) (Heparin Lock Flush 100 Units/Ml) 500 units FLUSH ASDIRECTED PRN PRN Reason: Keep Vein Open Last Admin: 03/20/19 06:39 Dose: 500 units Valproic Acid 500 mg/ Sodium (Chloride) 55 mls @ 55 mls/hr IV Q8H [facility] Last Admin: 03/24/19 13:26 Dose: 55 mls/hr Propofol (Diprivan 100 Ml) 100 mls @ 2.195 mls/hr IV TITRATE [facility]; Protocol Last Admin: 03/24/19 11:15 Dose: 45 mcg/kg/min, 19.754 mls/hr Heparin Sodium (Porcine) 5,000 (units/ Sodium Chloride) 501 mls @ 0.1 mls/hr IV ASDIRECTED [facility] Last Admin: 03/24/19 13:26 Dose: 1 units/hr, 0.1 mls/hr Sodium Chloride (Normal Saline) 1,000 mls @ 20 mls/hr IV ASDIRECTED [facility] Last Admin: 03/19/19 08:13 Dose: 125 mls/hr Piperacillin/Tazobactam/ (Dextrose 3.375 gm/ Premix) 50 mls @ 100 mls/hr IV Q6H [facility] Last Admin: 03/24/19 10:04 Dose: 100 mls/hr Azithromycin 250 mg/ Sodium (Chloride) 150 mls @ 150 mls/hr IV Q24H [facility] Last Admin: 03/24/19 11:55 Dose: 150 mls/hr Multivitamins/Minerals 10 ml/Chromium/Copper/Manganese/Seleni/Zn 1 ml/ Amino Ac/ Electrol/Dextrose/Calcium 1,011 mls @ 82 mls/hr IV .BY DURATION [facility] Last Admin: 03/23/19 21:33 Dose: 82 mls/hr Amino Ac/Electrol/Dextrose/Calcium (Clinimix E 5/15) 1,000 mls @ 82 mls/hr IV .BY DURATION [facility] Last Admin: 03/24/19 10:05 Dose: 82 mls/hr Insulin Glargine (Lantus Solostar) 12 units SUBCUT BID [facility] Last Admin: 03/24/19 09:51 Dose: 12 units Insulin Human Lispro (Humalog) 0 unit SUBCUT ASDIRECTED [facility]; Protocol Last Admin: 03/23/19 15:11 Dose: 3 units Latanoprost (Xalatan 0.005% [facility] Soln) 0 ml EYEBOTH BEDTIME [facility] Last Admin: 03/23/19 20:54 Dose: 1 drop Levothyroxine Sodium (Synthroid) 100 mcg IVPUSH DAILY [facility] Last Admin: 03/24/19 08:31 Dose: 100 mcg Lorazepam (Ativan) 0.5 mg IVPUSH Q4H PRN PRN Reason: Anxiety Last Admin: 03/18/19 22:19 Dose: 0.5 mg Lorazepam (Ativan) 0.5 mg IVPUSH BID [facility] Last Admin: 03/24/19 08:30 Dose: 0.5 mg Metoprolol Tartrate (Lopressor) 5 mg IV Q6H [facility] Last Admin: 03/24/19 11:58 Dose: 5 mg Naloxone HCl (Narcan) 0.1 mg IV ASDIRECTED PRN PRN Reason: decreased respiratory rate Ondansetron HCl (Zofran) 4 mg IVPUSH Q4H PRN PRN Reason: Nausea/Vomiting Last Admin: 03/18/19 17:31 Dose: 4 mg Pantoprazole Sodium (Protonix Iv) 40 mg IV Q24H [facility] Last Admin: 03/23/19 17:32 Dose: 40 mg Sodium Chloride (Joseph 128 5% Ophth Soln) 0 ml EYEBOTH QID [facility] Last Admin: 03/24/19 09:53 Dose: 1 drop Discontinued Medications Acetylcysteine (Mucomyst 20%) 400 mg INH BIDRT [facility] Last Admin: 03/12/19 07:48 Dose: 200 mg Acetylcysteine (Mucomyst 20%) 200 mg INH BIDRT [facility] Stop: 03/12/19 23:59 Last Admin: 03/12/19 20:44 Dose: 200 mg Bisacodyl (Dulcolax) 10 mg PO BID [facility] Last Admin: 03/17/19 20:35 Dose: Not Given Bisacodyl (Dulcolax) 10 mg RECTAL ONETIME ONE Stop: 03/17/19 17:01 Last Admin: 03/17/19 17:10 Dose: 10 mg Bupivacaine HCl (Marcaine 0.5%) Confirm Administered Dose 50 ml .ROUTE .STK-MED ONE Stop: 03/10/19 06:23 Bupivacaine HCl (Marcaine 0.5%) Confirm Administered Dose 50 ml .ROUTE .STK-MED ONE Stop: 03/11/19 07:19 Last Admin: 03/11/19 07:28 Dose: 15 ml Ropivacaine 36 ml/Dexamethasone 8 mg/Epinephrine HCl 0.4 mg/ Sodium Chloride 41.6 ml 0 ml NERVRT ASDIRECTED [facility] Last Admin: 03/08/19 15:05 Dose: 80 syringe Ropivacaine 36 ml/Dexamethasone 8 mg/Epinephrine HCl 0.4 mg/ Sodium Chloride 41.6 ml 0 ml NERVRT ASDIRECTED [facility] Last Admin: 03/11/19 07:41 Dose: 80 syringe Dexamethasone (Dexamethasone) Confirm Administered Dose 4 mg .ROUTE .STK-MED ONE Stop: 03/08/19 12:18 Diphenhydramine HCl (Benadryl) 25 mg IVPUSH Q6H PRN PRN Reason: Itching Diphenhydramine HCl (Benadryl) 25 mg PO Q6H PRN PRN Reason: Itching Fentanyl (Sublimaze) Confirm Administered Dose 250 mcg .ROUTE .STK-MED ONE Stop: 03/08/19 12:19 Furosemide (Lasix) 20 mg IVPUSH ONETIME ONE Stop: 03/09/19 21:56 Last Admin: 03/09/19 22:10 Dose: 20 mg Furosemide (Lasix) Confirm Administered Dose 20 mg .ROUTE .STK-MED ONE Stop: 03/09/19 22:05 Last Admin: 03/09/19 22:10 Dose: Not Given Furosemide (Lasix) 20 mg IVPUSH ONETIME ONE Stop: 03/10/19 06:33 Last Admin: 03/10/19 07:20 Dose: 20 mg Furosemide (Lasix) 20 mg IVPUSH ONETIME ONE Stop: 03/12/19 18:01 Last Admin: 03/12/19 17:43 Dose: 20 mg Furosemide (Lasix) 20 mg IVPUSH ONETIME ONE Stop: 03/12/19 07:31 Last Admin: 03/12/19 07:44 Dose: 20 mg Furosemide (Lasix) 10 mg IVPUSH Q12H [facility] Stop: 03/13/19 21:01 Last Admin: 03/13/19 20:29 Dose: 10 mg Furosemide (Lasix) 20 mg IVPUSH NOW ONE Stop: 03/15/19 11:31 Last Admin: 03/15/19 11:38 Dose: 20 mg Furosemide (Lasix) 20 mg IVPUSH ONETIME ONE Stop: 03/16/19 13:31 Last Admin: 03/16/19 14:18 Dose: 20 mg Furosemide (Lasix) 20 mg IVPUSH NOW ONE Stop: 03/17/19 09:16 Last Admin: 03/17/19 09:47 Dose: 20 mg Furosemide (Lasix) 20 mg IVPUSH Q12H [facility] Stop: 03/22/19 21:31 Last Admin: 03/22/19 22:10 Dose: 20 mg Furosemide (Lasix) 20 mg IVPUSH Q12H [facility] Stop: 03/23/19 22:01 Last Admin: 03/23/19 22:47 Dose: 20 mg Glycopyrrolate (Robinul) Confirm Administered Dose 1 mg .ROUTE .K-MED ONE Stop: 03/08/19 12:18 Haloperidol Lactate (Haldol) 5 mg IVPUSH BID [facility] Last Admin: 03/09/19 09:06 Dose: 5 mg Heparin Sodium (Porcine) (Heparin Sodium) Confirm Administered Dose 5,000 units .ROUTE .[facility] ONE Stop: 03/10/19 07:04 Last Admin: 03/10/19 07:57 Dose: Not Given Heparin Sodium (Porcine) (Heparin Lock Flush 100 Units/Ml) Confirm Administered Dose 1,000 units .ROUTE .[facility] ONE Stop: 03/11/19 07:32 Last Admin: 03/11/19 08:31 Dose: Not Given Heparin Sodium (Porcine) (Heparin Sodium) Confirm Administered Dose 5,000 units .ROUTE .[facility] ONE Stop: 03/18/19 23:03 Last Admin: 03/19/19 02:36 Dose: Not Given Hydromorphone HCl (Dilaudid [employer] Helper 15 Mg In Ns 30 Ml) 0 mg IV ASDIRECTED PRN; Protocol PRN Reason: PAIN Last Admin: 03/16/19 16:43 Dose: 15 mg Sodium Chloride (Normal Saline) 1,000 mls @ 1,000 mls/hr IV ASDIRECTED [facility] Last Admin: 03/08/19 10:02 Dose: 1,000 mls/hr Ampicillin Sodium/Sulbactam (Sodium 1.5 gm/ Sodium Chloride) 50 mls @ 100 mls/ hr IV Q6H [facility] Last Admin: 03/08/19 13:30 Dose: 100 mls/hr Aztreonam 1 gm/ Sodium (Chloride) 50 mls @ 100 mls/hr IV Q12H [facility] Last Admin: 03/08/19 13:30 Dose: 100 mls/hr Lactated Ringer's (Ringers, Lactated) 1,000 mls @ 150 mls/hr IV ASDIRECTED [facility] Last Admin: 03/08/19 13:31 Dose: 150 mls/hr Lactated Ringer's (Ringers, Lactated) Confirm Administered Dose 1,000 mls @ as directed .ROUTE .K-MED ONE Stop: 03/08/19 15:16 Lactated Ringer's (Ringers, Lactated) 1,000 mls @ 100 mls/hr IV ASDIRECTED [facility] Last Admin: 03/09/19 03:26 Dose: 100 mls/hr Dextrose/Lactated Ringer's (Dextrose 5%-Lactated Ringers) 1,000 mls @ 100 mls/ hr IV ASDIRECTED [facility] Stop: 03/12/19 11:59 Last Admin: 03/11/19 23:35 Dose: 100 mls/hr Ampicillin Sodium/Sulbactam (Sodium 3 gm/ Sodium Chloride) 100 mls @ 200 mls/ hr IV Q6H [facility] Last Admin: 03/13/19 05:19 Dose: 200 mls/hr Aztreonam 1 gm/ Sodium (Chloride) 50 mls @ 100 mls/hr IV Q8H [facility] Last Admin: 03/13/19 04:23 Dose: 100 mls/hr Potassium Chloride 20 meq/Lidocaine HCl 2 ml/ Sodium Chloride 112 mls @ 56 mls/ hr IV Q2H [facility] Stop: 03/09/19 15:59 Last Admin: 03/09/19 17:30 Dose: 56 mls/hr Lactated Ringer's (Ringers, Lactated) 750 mls @ 750 mls/hr IV [facility]OLUS ONE Stop: 03/09/19 16:25 Last Admin: 03/09/19 15:53 Dose: 750 mls/hr Lactated Ringer's (Ringers, Lactated) 750 mls @ 999 mls/hr IV BOLUS ONE Stop: 03/09/19 21:15 Last Admin: 03/09/19 21:08 Dose: 999 mls/hr Heparin Sodium (Porcine) 5,000 (units/ Sodium Chloride) 501 mls @ 5 mls/hr IV ASDIRECTED [facility] Last Admin: 03/12/19 13:58 Dose: 5 mls/hr Propofol (Diprivan 100 Ml) 100 mls @ 2.191 mls/hr IV TITRATE [facility]; Protocol Last Titration: 03/15/19 07:18 Dose: 0 mcg/kg/min, 0 mls/hr Linezolid 600 mg/ Premix 300 mls @ 300 mls/hr IV Q12H [facility] Last Admin: 03/11/19 21:53 Dose: 300 mls/hr Potassium Chloride 20 meq/Lidocaine HCl 2 ml/ Sodium Chloride 112 mls @ 56 mls/ hr IV Q2H [facility] Stop: 03/10/19 16:29 Last Admin: 03/10/19 16:07 Dose: 56 mls/hr Potassium Chloride 20 meq/ (Premix) 0 mls @ 50 mls/hr IV Q2H [facility] Stop: 03/11/19 07:28 Last Admin: 03/11/19 07:32 Dose: 50 mls/hr Magnesium Sulfate 2 gm/ Premix 50 mls @ 25 mls/hr IV Q6H [facility] Last Admin: 03/12/19 04:27 Dose: 25 mls/hr Potassium Phosphate 20 mmole/ (Sodium Chloride) 256.6667 mls @ 85 mls/hr IV Q3H [facility] Stop: 03/11/19 17:59 Last Admin: 03/11/19 14:42 Dose: 85 mls/hr Multivitamins/Minerals 10 ml/Chromium/Copper/Manganese/Seleni/Zn 1 ml/ Amino Ac/ Electrol/Dextrose/Calcium 1,011 mls @ 82 mls/hr IV .BY DURATION [facility] Last Admin: 03/13/19 12:34 Dose: 82 mls/hr Amino Ac/Electrol/Dextrose/Calcium (Clinimix E 12/08) 1,000 mls @ 82 mls/hr IV .BY DURATION [facility] Last Admin: 03/14/19 01:20 Dose: 82 mls/hr Sodium Chloride (Normal Saline) 1,000 mls @ 20 mls/hr IV ASDIRECTED [facility] Last Admin: 03/13/19 22:58 Dose: 20 mls/hr Potassium Phosphate 20 mmole/ (Sodium Chloride) 256.6667 mls @ 85.556 mls/hr IV Q3H [facility] Stop: 03/12/19 16:59 Last Admin: 03/12/19 14:49 Dose: 85.556 mls/hr Potassium Chloride 20 meq/ (Premix) 100 mls @ 50 mls/hr IV ONETIME ONE Stop: 03/13/19 10:59 Last Admin: 03/13/19 09:29 Dose: 50 mls/hr Potassium Phosphate 30 mmole/ (Sodium Chloride) 110 mls @ 30 mls/hr IV ONETIME ONE Stop: 03/13/19 14:39 Last Admin: 03/13/19 12:14 Dose: 30 mls/hr Linezolid 600 mg/ Premix 300 mls @ 300 mls/hr IV Q12H [facility] Last Admin: 03/20/19 09:52 Dose: 300 mls/hr Magnesium Sulfate 2 gm/ Premix 50 mls @ 25 mls/hr IV Q6H [facility] Stop: 03/16/19 03:59 Last Admin: 03/16/19 01:59 Dose: 25 mls/hr Azithromycin 250 mg/ Sodium (Chloride) 150 mls @ 150 mls/hr IV Q12H [facility] Azithromycin 250 mg/ Sodium (Chloride) 150 mls @ 150 mls/hr IV Q24H [facility] Last Admin: 03/17/19 11:28 Dose: 150 mls/hr Multivitamins/Minerals 10 ml/Chromium/Copper/Manganese/Seleni/Zn 1 ml/ Amino Ac/ Electrol/Dextrose/Calcium 1,011 mls @ 82 mls/hr IV .BY DURATION [facility] Stop: 03/18/19 14:59 Last Admin: 03/17/19 14:26 Dose: 82 mls/hr Amino Ac/Electrol/Dextrose/Calcium (Clinimix E 5/15) 1,000 mls @ 82 mls/hr IV .BY DURATION [facility] Stop: 03/18/19 14:59 Last Admin: 03/18/19 03:38 Dose: 82 mls/hr Multivitamins/Minerals 10 ml/Chromium/Copper/Manganese/Seleni/Zn 1 ml/ Amino Ac/ Electrol/Dextrose/Calcium 1,011 mls @ 80 mls/hr IV .BY DURATION [facility] Last Admin: 03/18/19 16:05 Dose: 40 mls/hr Amino Ac/Electrol/Dextrose/Calcium (Clinimix E 5/15) 1,000 mls @ 40 mls/hr IV .BY DURATION [facility] Piperacillin Sod/Tazobactam (Sod 3.375 gm/ Sodium Chloride) 50 mls @ 100 mls/ hr IV Q6H [facility] Last Admin: 03/19/19 04:17 Dose: 100 mls/hr Sodium Chloride (Normal Saline) Confirm Administered Dose 50 mls @ as directed .ROUTE .STK-MED ONE Stop: 03/18/19 21:35 Last Admin: 03/18/19 21:40 Dose: Not Given Propofol (Diprivan 100 Ml) Confirm Administered Dose 100 mls @ as directed .ROUTE .STK-MED ONE Stop: 03/18/19 23:04 Last Admin: 03/19/19 01:04 Dose: Not Given Sodium Chloride (Normal Saline) 500 mls @ 999 mls/hr IV .BOLUS ONE Stop: 03/19/19 00:00 Last Admin: 03/19/19 00:00 Dose: 999 mls/hr Sodium Chloride (Normal Saline) 100 mls @ 4 mls/sec IV ASDIRECTED [facility] Stop: 03/19/19 10:00 Last Admin: 03/19/19 07:45 Dose: 4 mls/sec Multivitamins/Minerals 10 ml/Chromium/Copper/Manganese/Seleni/Zn 1 ml/ Amino Ac/ Electrol/Dextrose/Calcium 1,011 mls @ 80 mls/hr IV .BY DURATION [facility] Stop: 03/19/19 20:00 Amino Ac/Electrol/Dextrose/Calcium (Clinimix E 5/15) 1,000 mls @ 80 mls/hr IV .BY DURATION [facility] Stop: 03/19/19 20:00 Last Admin: 03/19/19 08:12 Dose: 80 mls/hr Multivitamins/Minerals 10 ml/Chromium/Copper/Manganese/Seleni/Zn 1 ml/ Amino Ac/ Electrol/Dextrose/Calcium 1,011 mls @ 82 mls/hr IV .BY DURATION [facility] Stop: 03/23/19 20:00 Last Admin: 03/22/19 21:45 Dose: 82 mls/hr Amino Ac/Electrol/Dextrose/Calcium (Clinimix E 5/15) 1,000 mls @ 82 mls/hr IV .BY DURATION [facility] Stop: 03/23/19 20:00 Last Admin: 03/23/19 11:17 Dose: Not Given Albumin Human (Albumin 25%) 25 gm in 100 mls @ 25 mls/hr IV Q24H [facility] Stop: 03/23/19 11:59 Last Admin: 03/23/19 08:20 Dose: 25 mls/hr Albumin Human (Albumin 25%) 25 gm in 100 mls @ 25 mls/hr IV Q24H [facility] Stop: 03/23/19 15:59 Last Admin: 03/23/19 11:22 Dose: 25 mls/hr Potassium Chloride 20 meq/ (Premix) 100 mls @ 50 mls/hr IV ONETIME ONE Stop: 03/21/19 10:59 Last Admin: 03/21/19 09:29 Dose: 50 mls/hr Potassium Chloride 40 meq/ (Premix) 100 mls @ 25 mls/hr IV ONETIME ONE Stop: 03/22/19 13:59 Last Admin: 03/22/19 10:01 Dose: 25 mls/hr Magnesium Sulfate 2 gm/ Premix 50 mls @ 25 mls/hr IV Q6H [facility] Stop: 03/26/19 03:59 Last Admin: 03/24/19 08:07 Dose: 25 mls/hr Potassium Chloride 40 meq/ (Premix) 100 mls @ 25 mls/hr IV ONETIME ONE Stop: 03/23/19 13:59 Last Admin: 03/23/19 09:22 Dose: 25 mls/hr Potassium Chloride 40 meq/ (Premix) 100 mls @ 25 mls/hr IV ONETIME ONE Stop: 03/24/19 13:59 Last Admin: 03/24/19 09:54 Dose: 25 mls/hr Insulin Glargine (Lantus Solostar) 10 units SUBCUT BID [facility] Last Admin: 03/16/19 09:27 Dose: 10 unit Insulin Glargine (Lantus Solostar) 14 units SUBCUT BID [facility] Last Admin: 03/18/19 09:06 Dose: 14 units Insulin Glargine (Lantus Solostar) 7 units SUBCUT BID [facility] Stop: 03/18/19 21:01 Last Admin: 03/18/19 21:25 Dose: Not Given Insulin Human Lispro (Humalog) 0 unit SUBCUT Q6H PRN; Protocol PRN Reason: MEDIUM CORRECTIONAL DOSING Last Admin: 03/14/19 17:42 Dose: 7 units Insulin Human Lispro (Humalog) 15 unit SUBCUT ONETIME ONE Stop: 03/14/19 12:05 Last Admin: 03/14/19 12:10 Dose: 15 units Insulin Human Lispro (Humalog) 0 unit SUBCUT ONETIME ONE Stop: 03/15/19 00:16 Last Admin: 03/15/19 00:25 Dose: 12 units Iopamidol (Isovue-370 (76%)) 100 ml IV . DIRECTED [facility] Stop: 03/19/19 10:00 Last Admin: 03/19/19 07:45 Dose: 100 ml Lidocaine HCl (Xylocaine-Mpf 1%) 5 ml INJECT ONETIME ONE Stop: 03/11/19 05:30 Last Admin: 03/11/19 05:39 Dose: 2 ml Lidocaine/Epinephrine (Xylocaine 1% With Epinephrine 1:100,000) Confirm Administered Dose 50 ml .ROUTE .STK-MED ONE Stop: 03/10/19 06:23 Lidocaine/Epinephrine (Xylocaine 1% With Epinephrine 1:100,000) Confirm Administered Dose 50 ml .ROUTE .STK-MED ONE Stop: 03/11/19 07:19 Last Admin: 03/11/19 07:28 Dose: 15 ml Linezolid (Zyvox) 600 mg IRR .STK-MED ONE Stop: 03/11/19 07:39 Last Admin: 03/11/19 07:38 Dose: 600 mg Lorazepam (Ativan) 0.5 mg IVPUSH BID [facility] Last Admin: 03/09/19 09:09 Dose: 0.5 mg Lorazepam (Ativan) 0.25 mg IVPUSH BID [facility] Last Admin: 03/10/19 09:09 Dose: 0.25 mg Meropenem (Merrem) Confirm Administered Dose 500 mg .ROUTE .STK-MED ONE Stop: 03/08/19 12:05 Last Admin: 03/08/19 14:00 Dose: 500 mg Meropenem (Merrem) Confirm Administered Dose 500 mg .ROUTE .STK-MED ONE Stop: 03/10/19 06:23 Meropenem (Merrem) Confirm Administered Dose 500 mg .ROUTE .STK-MED ONE Stop: 03/11/19 06:45 Last Admin: 03/11/19 07:38 Dose: 500 mg Methylprednisolone Sodium Succinate (Solu-Medrol) 40 mg IVPUSH Q6H [facility] Last Admin: 03/20/19 09:50 Dose: 40 mg Neostigmine Methylsulfate (Neostigmine) Confirm Administered Dose 5 mg .ROUTE .STK-MED ONE Stop: 03/08/19 12:18 Non-Formulary Medication (Total Parenteral Nutrition, Central) 1,000 ml .XX .Continue Order [facility] Stop: 03/22/19 12:00 Non-Formulary Medication (Total Parenteral Nutrition, Central) 1,000 ml .XX .Continue Order [facility] Stop: 03/23/19 12:00 Non-Formulary Medication (Total Parenteral Nutrition, Central) 1,000 ml .XX .Continue Order [facility] Stop: 03/24/19 15:00 Ondansetron HCl (Zofran) Confirm Administered Dose 4 mg .ROUTE .STK-MED ONE Stop: 03/08/19 12:18 Ondansetron HCl (Zofran) 4 mg IVPUSH Q6H PRN PRN Reason: Nausea/Vomiting Piperacillin Sod/Tazobactam Sod (Zosyn) Confirm Administered Dose 3.375 gm .ROUTE .STK-MED ONE Stop: 03/18/19 21:34 Last Admin: 03/18/19 21:40 Dose: Not Given Propofol (Diprivan 20 Ml) Confirm Administered Dose 200 mg .ROUTE .STK-MED ONE Stop: 03/08/19 12:18 Propofol (Diprivan 20 Ml) Confirm Administered Dose 200 mg .ROUTE .STK-MED ONE Stop: 03/10/19 07:33 Rocuronium [place] (Zemuron) Confirm Administered Dose 50 mg .ROUTE .STK-MED ONE Stop: 03/08/19 12:18 Succinylcholine Chloride (Quelicin) Confirm Administered Dose 200 mg .ROUTE .STK -MED ONE Stop: 03/08/19 12:18 Succinylcholine Chloride (Quelicin) Confirm Administered Dose 200 mg .ROUTE .STK -MED ONE Stop: 03/10/19 07:33 - Exam Quality Assessment: Supplemental Oxygen General: No Acute Distress, Sedated. No: Alert, Cooperative HEENT: Pupils Equal Lungs: Normal Respiratory Effort, Rhonchi (Mild diffuse upper airway rhonchi) Cardiovascular: Regular Rate, Regular Rhythm GI/Abdominal Exam: Soft, No Distention, Abnormal Bowel Sounds (Hypoactive) Extremities: Pedal Edema. No: Increased Warmth Peripheral Pulses: 2+: Dorsalis Pedis (L), Dorsalis Pedis (R) Skin: Warm, Dry Psy/Mental Status: No: Alert, Agitated - Problem List & Annotations (1) Small bowel obstruction due to adhesions SNOMED Code(s): 480879537 Code(s): K56.50 - INTESTNL ADHESIONS, UNSP TO PARTIAL VERSUS COMPLETE OBST Status: Acute Current Visit: Yes (2) Acute kidney injury SNOMED Code(s): 20572623, 99011945 Code(s): N17.9 - ACUTE KIDNEY FAILURE, UNSPECIFIED Status: Acute Current Visit: Yes (3) Schizophrenia SNOMED Code(s): 10824360 Code(s): F20.9 - SCHIZOPHRENIA, UNSPECIFIED Status: Chronic Current Visit : No Qualifiers: Schizophrenia type: unspecified Qualified Code(s): F20.9 - Schizophrenia, unspecified (4) Hypothyroid SNOMED Code(s): 72383156 Code(s): E03.9 - HYPOTHYROIDISM, UNSPECIFIED Status: Chronic Current Visit: No Qualifiers: Hypothyroidism type: acquired Qualified Code(s): E03.9 - Hypothyroidism, unspecified (5) HTN (hypertension) SNOMED Code(s): 51707393 Code(s): I10 - ESSENTIAL (PRIMARY) HYPERTENSION Status: Chronic Current Visit: No Qualifiers: Hypertension type: essential hypertension Qualified Code(s): I10 - Essential (primary) hypertension - Problem List Review Problem List Initiated/Reviewed/Updated: Yes - My Orders Last 24 Hours: My Active Orders 03/23/19 18:54 Dimethicone/Zinc Oxide [Rash Relief-Zinc Oxide [place]] 0 gm TOP ASDIRECTED PRN 03/24/19 09:30 Initiate/Renew Non-Violent Restraints (All Ages) Q24H 03/24/19 10:00 Furosemide [Lasix] 20 mg IVPUSH Q8H 03/25/19 05:00 CXR [Chest 1V Frontal] [CR] DAILY BASIC METABOLIC PANEL,BMP [CHEM] Timed BLOOD GAS ARTERIAL [BG] Timed CBC W/O DIFF,HEMOGRAM [HEME] Timed (1) 03/26/19 05:00 CXR [Chest 1V Frontal] [CR] DAILY 03/27/19 05:00 CXR [Chest 1V Frontal] [CR] DAILY - Plan Plan:: ASSESSMENT AND PLAN - Acute respiratory failure with hypoxia and hypercapnia - secondary to aspiration with vomiting 03/18. Chest x-ray stable. Secretions stable but not resolved. Still some evidence for volume overload. Net neutral diuresis yesterday. No fevers. -Continue current ventilator settings -Zosyn added for empiric coverage with aspiration -Mucomyst nebulizers -Diuresis with increased to every 8 hours -Vigorous pulmonary toilet -Daily breathing trials Small bowel obstruction with pneumatosis - status post emergent laparotomy with small bowel resection and right colectomy 03/08. Abdomen not distended. He is having bowel movements. -Postoperative care per surgical team -He is receiving TPN -Pain control -Azithromycin for GI motility augmentation per Dr. Monae Type 2 diabetes mellitus - blood sugar levels have been very acceptable. -Continue glucometers every 6 hours -Continue insulin in the TPN -High dose sliding scale Humalog Hypokalemia - potassium level improved with supplementation but will need additional supplementation today. -Supplement this morning -Recheck in the morning Severe schizophrenia - patient is very debilitated because of his psychiatric illness. -Continue low-dose Haldol -Continue regular dose Depakote -low dose lorazepam -Restart oral medications when able Acute kidney injury - resolved -Continue to closely monitor urine output and renal function Maintenance issues - - DVT prophylaxis - mechanical - GI prophylaxis - IV PPI - Nutrition - nothing by mouth, currently receiving TPN for nutritional support - Rodriguez catheter - placed for strict intake and output monitoring with a critical patient Disposition - anticipate discharge home versus more likely the skilled nursing Farhan Nj M.D.
[2019-03-24] MEDS: Pantoprazole 40 MG Vial IV SCH (18:06)
[2019-03-24] MEDS: Latanoprost 0.005% Ophth Soln 2.5 ML Bottle EYEBOTH SCH (21:20)
[2019-03-25] MEDS: Metoprolol Tartrate 5 MG/5 ML SDV IV SCH ×4 (00:31→17:23)
[2019-03-25] MEDS: Furosemide 20 MG/2 ML VIAL IVPUSH SCH ×3 (02:11→21:32)
--- NOTE | 2019-03-25 03:49 | CRLCR ---
INDICATION: Intubated TECHNIQUE: Chest 1 views COMPARISON: Chest x-ray 03/24/2019 FINDINGS: Cardiovascular and mediastinum: Endotracheal tip at the midtrachea level. Right subclavian line at the right atrial level. Orogastric tube within the fundus of the stomach. Lungs and pleural spaces: Small right and trace left pleural effusion with bibasilar airspace disease. No definite pneumothorax. Bones and soft tissues: No significant findings. IMPRESSION: Small right and trace left pleural effusions with bibasilar airspace disease, fairly similar to the study 1 day prior. Dictated by Jame Morales MD @ Mar 25 2019 3:46AM Signed by Dr. Jame Morales @ Mar 25 2019 3:47AM
[2019-03-25] MEDS: Piperacillin/Tazobactam/Dext 3.375 GM in Premix Bag 1 BAG IV SCH ×2 (04:28→09:29)
[2019-03-25] MEDS: Sodium Chloride 5% Ophth Soln 15 ML Bottle EYEBOTH SCH ×4 (06:15→21:15)
[2019-03-25] MEDS: Albuterol/Ipratropium 3.0-0.5 MG/3 ML Neb Soln INH SCH ×4 (07:17→21:13)
[2019-03-25] MEDS: Acetylcysteine 20% 200 MG/ML 4 ML Nebulizer Soln SDV NEB SCH ×2 (07:17→21:14)
[2019-03-25] MEDS: Docusate Sodium 100 MG Cap PO SCH ×2 (08:29→21:02)
[2019-03-25] MEDS: Levothyroxine 100 MCG Vial IVPUSH SCH (08:32)
[2019-03-25] MEDS: Haloperidol Lactate 5 MG/ML SDV IVPUSH SCH ×2 (08:33→21:13)
[2019-03-25] MEDS: LORazepam 2 MG/ML SDV IVPUSH SCH ×2 (08:45→21:13)
[2019-03-25] MEDS: Insulin Glargine,Human Rec. Analog 100 Units/ML 3 ML Pen SUBCUT SCH ×2 (08:50→21:14)
--- NOTE | 2019-03-25 09:55 | PCM.PN ---
- General Info Date of Service: 03/25/19 Subjective Update: there were no acute events overnight. Vital signs have been stable. Patient did not do well with a spontaneous breathing trial this morning and had to be returned to the ventilator after about 10 minutes. Both his heart rate and respiratory rate increased fairly quickly after initially doing okay. He continues to have large quantities of secretions which are relatively clear. These are both oral and respiratory. Good response to diuresis yesterday but unfortunately ended up net neutral again. he has not had any fevers. White blood cell count has normalized. Chest x-ray is stable. Functional Status: Reports: Other (intubated and sedated) - Review of Systems General: Denies: Fever - Patient Data Vitals - Most Recent: Last Vital Signs Temp 36.4 C 03/25/19 08:00 Pulse 84 03/25/19 09:00 Resp 18 03/25/19 09:00 BP 110/49 L 03/25/19 09:00 Pulse Ox 94 L 03/25/19 09:00 Weight - Most Recent: 75.4 kg I&O - Last 24 Hours: Intake & Output 03/24/19 03/25/19 03/25/19 22:59 06:59 14:59 Intake Total 2116 1662 50 Output Total 2550 1400 185 Balance -434 262 -135 Lab Results Last 24 Hours: Laboratory Results - last 24 hr 03/25/19 03/25/19 03/25/19 Range/Units 05:40 05:40 05:40 WBC 8.4 (4.5-11.0) K/uL RBC 3.02 L (4.30-5.90) M/uL Hgb 8.6 L (12.0-15.0) g/dL Hct 28.9 L (40.0-54.0) % MCV 96 (80-98) fL MCH 29 (27-31) pg MCHC 30 L (32-36) % Plt Count 365 (150-400) K/uL Puncture Site A-line ABG pH 7.479 H (7.350-7.450) ABG pCO2 37.1 (35.0-42.0) mmHg ABG pO2 123.0 H (75.0-100.0) mmHg ABG HCO3 27.2 H (22.0-26.0) mmol/L ABG Total CO2 25.3 (23.0-27.0) mmol/L ABG O2 Saturation 98.8 H (95.0-98.0) % ABG O2 Content 12.2 L (15.0-23.0) %vol ABG Base Excess 3.9 mm/L ABG Hemoglobin 8.9 L (13.5-18.0) g/dL ABG Oxyhemoglobin 95.4 % ABG Carboxyhemoglobin 2.7 H (0.0-1.6) % ABG Methemoglobin 0.7 % Andrew Test Not performed O2 Delivery Device Ventilator Sodium 145 (140-148) mmol/L Potassium 3.6 (3.6-5.2) mmol/L Chloride 107 (100-108) mmol/L Carbon Dioxide 28 (21-32) mmol/L Anion Gap 10.5 (5.0-14.0) mmol/L BUN 30 H (7-18) mg/dL Creatinine 1.1 (0.8-1.3) mg/dL Est Cr Clr Drug Dosing 61.29 mL/min Estimated GFR (MDRD) > 60 (>60) Glucose 153 H (74-106) mg/dL Calcium 8.2 L (8.5-10.1) mg/dL Quentin Results Last 24 Hours: Microbiology 03/20/19 06:33 Aerobic Blood Culture - Final Blood - Central Line NO GROWTH AFTER 5 DAYS Anaerobic Blood Culture - Final NO GROWTH AFTER 5 DAYS 03/20/19 06:35 Aerobic Blood Culture - Final Blood - Central Line NO GROWTH AFTER 5 DAYS Anaerobic Blood Culture - Final NO GROWTH AFTER 5 DAYS Med Orders - Current: Current Medications Acetylcysteine (Mucomyst 20%) 200 mg NEB BIDRT [facility] Last Admin: 03/25/19 07:17 Dose: 200 mg Albuterol (Proventil Neb Soln) 2.5 mg NEB Q4H PRN PRN Reason: Shortness Of Breath/wheezing Last Admin: 03/10/19 00:24 Dose: 2.5 mg Albuterol/Ipratropium (Duoneb 3.0-0.5 Mg/3 Ml) 3 ml INH QIDRT [facility] Last Admin: 03/25/19 07:17 Dose: 3 ml Dextrose (Glutose 15) 15 gm PO ASDIRECTED PRN PRN Reason: HYPOGLYCEMIA Dextrose/Water (Dextrose 50% In Water) 50 ml IVPUSH ASDIRECTED PRN PRN Reason: HYPOGLYCEMIA Dimethicone/Zinc Oxide (Rash Relief-Zinc Oxide Medon) 0 gm TOP ASDIRECTED PRN PRN Reason: Perineal Comfort Measure Diphenhydramine HCl (Benadryl) 25 mg IVPUSH Q4H PRN PRN Reason: Itching Last Admin: 03/18/19 03:20 Dose: 25 mg Docusate Sodium (Colace) 100 mg PO BID [facility] Last Admin: 03/25/19 08:29 Dose: Not Given Furosemide (Lasix) 20 mg IVPUSH Q12H [facility] Glucagon (Glucagen) 1 mg IM ASDIRECTED PRN PRN Reason: HYPOGLYCEMIA Haloperidol Lactate (Haldol) 2 mg IVPUSH Q4H PRN PRN Reason: Agitation Last Admin: 03/18/19 21:57 Dose: 2 mg Haloperidol Lactate (Haldol) 2.5 mg IVPUSH BID [facility] Last Admin: 03/25/19 08:33 Dose: 2.5 mg Heparin Sodium (Porcine) (Heparin Lock Flush 100 Units/Ml) 500 units FLUSH ASDIRECTED PRN PRN Reason: Keep Vein Open Last Admin: 03/20/19 06:39 Dose: 500 units Valproic Acid 500 mg/ Sodium (Chloride) 55 mls @ 55 mls/hr IV Q8H [facility] Last Admin: 03/25/19 05:02 Dose: 55 mls/hr Propofol (Diprivan 100 Ml) 100 mls @ 2.195 mls/hr IV TITRATE [facility]; Protocol Last Admin: 03/25/19 05:46 Dose: 40 mcg/kg/min, 17.559 mls/hr Heparin Sodium (Porcine) 5,000 (units/ Sodium Chloride) 501 mls @ 0.1 mls/hr IV ASDIRECTED [facility] Last Admin: 03/24/19 13:26 Dose: 1 units/hr, 0.1 mls/hr Sodium Chloride (Normal Saline) 1,000 mls @ 20 mls/hr IV ASDIRECTED [facility] Last Admin: 03/19/19 08:13 Dose: 125 mls/hr Multivitamins/Minerals 10 ml/Chromium/Copper/Manganese/Seleni/Zn 1 ml/ Amino Ac/ Electrol/Dextrose/Calcium 1,011 mls @ 82 mls/hr IV .BY DURATION [facility] Last Admin: 03/24/19 22:01 Dose: 82 mls/hr Amino Ac/Electrol/Dextrose/Calcium (Clinimix E 12/08) 1,000 mls @ 82 mls/hr IV .BY DURATION [facility] Last Admin: 03/24/19 10:05 Dose: 82 mls/hr Potassium Chloride 40 meq/ (Premix) 100 mls @ 25 mls/hr IV ONETIME ONE Stop: 03/25/19 13:53 Insulin Glargine (Lantus Solostar) 12 units SUBCUT BID [facility] Last Admin: 03/25/19 08:50 Dose: 12 units Insulin Human Lispro (Humalog) 0 unit SUBCUT ASDIRECTED [facility]; Protocol Last Admin: 03/23/19 15:11 Dose: 3 units Latanoprost (Xalatan 0.005% Ophth Soln) 0 ml EYEBOTH BEDTIME [facility] Last Admin: 03/24/19 21:20 Dose: 1 drop Levothyroxine Sodium (Synthroid) 100 mcg IVPUSH DAILY [facility] Last Admin: 03/25/19 08:32 Dose: 100 mcg Lorazepam (Ativan) 0.5 mg IVPUSH Q4H PRN PRN Reason: Anxiety Last Admin: 03/18/19 22:19 Dose: 0.5 mg Lorazepam (Ativan) 0.5 mg IVPUSH BID [facility] Last Admin: 03/25/19 08:45 Dose: 0.5 mg Metoprolol Tartrate (Lopressor) 5 mg IV Q6H [facility] Last Admin: 03/25/19 06:15 Dose: 5 mg Naloxone HCl (Narcan) 0.1 mg IV ASDIRECTED PRN PRN Reason: decreased respiratory rate Ondansetron HCl (Zofran) 4 mg IVPUSH Q4H PRN PRN Reason: Nausea/Vomiting Last Admin: 03/18/19 17:31 Dose: 4 mg Pantoprazole Sodium (Protonix Iv) 40 mg IV Q24H [facility] Last Admin: 03/24/19 18:06 Dose: 40 mg Sodium Chloride (Joseph 128 5% Ophth Soln) 0 ml EYEBOTH QID [facility] Last Admin: 03/25/19 09:29 Dose: 2 drop Discontinued Medications Acetylcysteine (Mucomyst 20%) 400 mg INH BIDRT [facility] Last Admin: 03/12/19 07:48 Dose: 200 mg Acetylcysteine (Mucomyst 20%) 200 mg INH BIDRT [facility] Stop: 03/12/19 23:59 Last Admin: 03/12/19 20:44 Dose: 200 mg Bisacodyl (Dulcolax) 10 mg PO BID [facility] Last Admin: 03/17/19 20:35 Dose: Not Given Bisacodyl (Dulcolax) 10 mg RECTAL ONETIME ONE Stop: 03/17/19 17:01 Last Admin: 03/17/19 17:10 Dose: 10 mg Bupivacaine HCl (Marcaine 0.5%) Confirm Administered Dose 50 ml .ROUTE .STK-MED ONE Stop: 03/10/19 06:23 Bupivacaine HCl (Marcaine 0.5%) Confirm Administered Dose 50 ml .ROUTE .STK-MED ONE Stop: 03/11/19 07:19 Last Admin: 03/11/19 07:28 Dose: 15 ml Ropivacaine 36 ml/Dexamethasone 8 mg/Epinephrine HCl 0.4 mg/ Sodium Chloride 41.6 ml 0 ml NERVRT ASDIRECTED [facility] Last Admin: 03/08/19 15:05 Dose: 80 syringe Ropivacaine 36 ml/Dexamethasone 8 mg/Epinephrine HCl 0.4 mg/ Sodium Chloride 41.6 ml 0 ml NERVRT ASDIRECTED [facility] Last Admin: 03/11/19 07:41 Dose: 80 syringe Dexamethasone (Dexamethasone) Confirm Administered Dose 4 mg .ROUTE .STK-MED ONE Stop: 03/08/19 12:18 Diphenhydramine HCl (Benadryl) 25 mg IVPUSH Q6H PRN PRN Reason: Itching Diphenhydramine HCl (Benadryl) 25 mg PO Q6H PRN PRN Reason: Itching Fentanyl (Sublimaze) Confirm Administered Dose 250 mcg .ROUTE .STK-MED ONE Stop: 03/08/19 12:19 Furosemide (Lasix) 20 mg IVPUSH ONETIME ONE Stop: 03/09/19 21:56 Last Admin: 03/09/19 22:10 Dose: 20 mg Furosemide (Lasix) Confirm Administered Dose 20 mg .ROUTE .STK-MED ONE Stop: 03/09/19 22:05 Last Admin: 03/09/19 22:10 Dose: Not Given Furosemide (Lasix) 20 mg IVPUSH ONETIME ONE Stop: 03/10/19 06:33 Last Admin: 03/10/19 07:20 Dose: 20 mg Furosemide (Lasix) 20 mg IVPUSH ONETIME ONE Stop: 03/12/19 18:01 Last Admin: 03/12/19 17:43 Dose: 20 mg Furosemide (Lasix) 20 mg IVPUSH ONETIME ONE Stop: 03/12/19 07:31 Last Admin: 03/12/19 07:44 Dose: 20 mg Furosemide (Lasix) 10 mg IVPUSH Q12H [facility] Stop: 03/13/19 21:01 Last Admin: 03/13/19 20:29 Dose: 10 mg Furosemide (Lasix) 20 mg IVPUSH NOW ONE Stop: 03/15/19 11:31 Last Admin: 03/15/19 11:38 Dose: 20 mg Furosemide (Lasix) 20 mg IVPUSH ONETIME ONE Stop: 03/16/19 13:31 Last Admin: 03/16/19 14:18 Dose: 20 mg Furosemide (Lasix) 20 mg IVPUSH NOW ONE Stop: 03/17/19 09:16 Last Admin: 03/17/19 09:47 Dose: 20 mg Furosemide (Lasix) 20 mg IVPUSH Q12H [facility] Stop: 03/22/19 21:31 Last Admin: 03/22/19 22:10 Dose: 20 mg Furosemide (Lasix) 20 mg IVPUSH Q12H [facility] Stop: 03/23/19 22:01 Last Admin: 03/23/19 22:47 Dose: 20 mg Furosemide (Lasix) 20 mg IVPUSH Q8H [facility] Stop: 03/25/19 02:01 Last Admin: 03/25/19 02:11 Dose: 20 mg Glycopyrrolate (Robinul) Confirm Administered Dose 1 mg .ROUTE .STK-MED ONE Stop: 03/08/19 12:18 Haloperidol Lactate (Haldol) 5 mg IVPUSH BID [facility] Last Admin: 03/09/19 09:06 Dose: 5 mg Heparin Sodium (Porcine) (Heparin Sodium) Confirm Administered Dose 5,000 units .ROUTE .STK-MED ONE Stop: 03/10/19 07:04 Last Admin: 03/10/19 07:57 Dose: Not Given Heparin Sodium (Porcine) (Heparin Lock Flush 100 Units/Ml) Confirm Administered Dose 1,000 units .ROUTE .STK-MED ONE Stop: 03/11/19 07:32 Last Admin: 03/11/19 08:31 Dose: Not Given Heparin Sodium (Porcine) (Heparin Sodium) Confirm Administered Dose 5,000 units .ROUTE .[facility] ONE Stop: 03/18/19 23:03 Last Admin: 03/19/19 02:36 Dose: Not Given Hydromorphone HCl (Dilaudid [employer] 15 Mg In Ns 30 Ml) 0 mg IV ASDIRECTED PRN; Protocol PRN Reason: PAIN Last Admin: 03/16/19 16:43 Dose: 15 mg Sodium Chloride (Normal Saline) 1,000 mls @ 1,000 mls/hr IV ASDIRECTED [facility] Last Admin: 03/08/19 10:02 Dose: 1,000 mls/hr Ampicillin Sodium/Sulbactam (Sodium 1.5 gm/ Sodium Chloride) 50 mls @ 100 mls/ hr IV Q6H [facility] Last Admin: 03/08/19 13:30 Dose: 100 mls/hr Aztreonam 1 gm/ Sodium (Chloride) 50 mls @ 100 mls/hr IV Q12H [facility] Last Admin: 03/08/19 13:30 Dose: 100 mls/hr Lactated Ringer's (Ringers, Lactated) 1,000 mls @ 150 mls/hr IV ASDIRECTED [facility] Last Admin: 03/08/19 13:31 Dose: 150 mls/hr Lactated Ringer's (Ringers, Lactated) Confirm Administered Dose 1,000 mls @ as directed .ROUTE .[facility] ONE Stop: 03/08/19 15:16 Lactated Ringer's (Ringers, Lactated) 1,000 mls @ 100 mls/hr IV ASDIRECTED [facility] Last Admin: 03/09/19 03:26 Dose: 100 mls/hr Dextrose/Lactated Ringer's (Dextrose 5%-Lactated Ringers) 1,000 mls @ 100 mls/ hr IV ASDIRECTED [facility] Stop: 03/12/19 11:59 Last Admin: 03/11/19 23:35 Dose: 100 mls/hr Ampicillin Sodium/Sulbactam (Sodium 3 gm/ Sodium Chloride) 100 mls @ 200 mls/ hr IV Q6H [facility] Last Admin: 03/13/19 05:19 Dose: 200 mls/hr Aztreonam 1 gm/ Sodium (Chloride) 50 mls @ 100 mls/hr IV Q8H [facility] Last Admin: 03/13/19 04:23 Dose: 100 mls/hr Potassium Chloride 20 meq/Lidocaine HCl 2 ml/ Sodium Chloride 112 mls @ 56 mls/ hr IV Q2H [facility] Stop: 03/09/19 15:59 Last Admin: 03/09/19 17:30 Dose: 56 mls/hr Lactated Ringer's (Ringers, Lactated) 750 mls @ 750 mls/hr IV [facility]US ONE Stop: 03/09/19 16:25 Last Admin: 03/09/19 15:53 Dose: 750 mls/hr Lactated Ringer's (Ringers, Lactated) 750 mls @ 999 mls/hr IV [facility]US ONE Stop: 03/09/19 21:15 Last Admin: 03/09/19 21:08 Dose: 999 mls/hr Heparin Sodium (Porcine) 5,000 (units/ Sodium Chloride) 501 mls @ 5 mls/hr IV ASDIRECTED [facility] Last Admin: 03/12/19 13:58 Dose: 5 mls/hr Propofol (Diprivan 100 Ml) 100 mls @ 2.191 mls/hr IV TITRATE [facility]; Protocol Last Titration: 03/15/19 07:18 Dose: 0 mcg/kg/min, 0 mls/hr Linezolid 600 mg/ Premix 300 mls @ 300 mls/hr IV Q12H [facility] Last Admin: 03/11/19 21:53 Dose: 300 mls/hr Potassium Chloride 20 meq/Lidocaine HCl 2 ml/ Sodium Chloride 112 mls @ 56 mls/ hr IV Q2H [facility] Stop: 03/10/19 16:29 Last Admin: 03/10/19 16:07 Dose: 56 mls/hr Potassium Chloride 20 meq/ (Premix) 0 mls @ 50 mls/hr IV Q2H [facility] Stop: 03/11/19 07:28 Last Admin: 03/11/19 07:32 Dose: 50 mls/hr Magnesium Sulfate 2 gm/ Premix 50 mls @ 25 mls/hr IV Q6H [facility] Last Admin: 03/12/19 04:27 Dose: 25 mls/hr Potassium Phosphate 20 mmole/ (Sodium Chloride) 256.6667 mls @ 85 mls/hr IV Q3H [facility] Stop: 03/11/19 17:59 Last Admin: 03/11/19 14:42 Dose: 85 mls/hr Multivitamins/Minerals 10 ml/Chromium/Copper/Manganese/Seleni/Zn 1 ml/ Amino Ac/ Electrol/Dextrose/Calcium 1,011 mls @ 82 mls/hr IV .BY DURATION [facility] Last Admin: 03/13/19 12:34 Dose: 82 mls/hr Amino Ac/Electrol/Dextrose/Calcium (Clinimix E 12/08) 1,000 mls @ 82 mls/hr IV .BY DURATION [facility] Last Admin: 03/14/19 01:20 Dose: 82 mls/hr Sodium Chloride (Normal Saline) 1,000 mls @ 20 mls/hr IV ASDIRECTED [facility] Last Admin: 03/13/19 22:58 Dose: 20 mls/hr Potassium Phosphate 20 mmole/ (Sodium Chloride) 256.6667 mls @ 85.556 mls/hr IV Q3H [facility] Stop: 03/12/19 16:59 Last Admin: 03/12/19 14:49 Dose: 85.556 mls/hr Potassium Chloride 20 meq/ (Premix) 100 mls @ 50 mls/hr IV ONETIME ONE Stop: 03/13/19 10:59 Last Admin: 03/13/19 09:29 Dose: 50 mls/hr Potassium Phosphate 30 mmole/ (Sodium Chloride) 110 mls @ 30 mls/hr IV ONETIME ONE Stop: 03/13/19 14:39 Last Admin: 03/13/19 12:14 Dose: 30 mls/hr Linezolid 600 mg/ Premix 300 mls @ 300 mls/hr IV Q12H [facility] Last Admin: 03/20/19 09:52 Dose: 300 mls/hr Magnesium Sulfate 2 gm/ Premix 50 mls @ 25 mls/hr IV Q6H [facility] Stop: 03/16/19 03:59 Last Admin: 03/16/19 01:59 Dose: 25 mls/hr Azithromycin 250 mg/ Sodium (Chloride) 150 mls @ 150 mls/hr IV Q12H [facility] Azithromycin 250 mg/ Sodium (Chloride) 150 mls @ 150 mls/hr IV Q24H [facility] Last Admin: 03/17/19 11:28 Dose: 150 mls/hr Multivitamins/Minerals 10 ml/Chromium/Copper/Manganese/Seleni/Zn 1 ml/ Amino Ac/ Electrol/Dextrose/Calcium 1,011 mls @ 82 mls/hr IV .BY DURATION [facility] Stop: 03/18/19 14:59 Last Admin: 03/17/19 14:26 Dose: 82 mls/hr Amino Ac/Electrol/Dextrose/Calcium (Clinimix E 5/15) 1,000 mls @ 82 mls/hr IV .BY DURATION [facility] Stop: 03/18/19 14:59 Last Admin: 03/18/19 03:38 Dose: 82 mls/hr Multivitamins/Minerals 10 ml/Chromium/Copper/Manganese/Seleni/Zn 1 ml/ Amino Ac/ Electrol/Dextrose/Calcium 1,011 mls @ 80 mls/hr IV .BY DURATION [facility] Last Admin: 03/18/19 16:05 Dose: 40 mls/hr Amino Ac/Electrol/Dextrose/Calcium (Clinimix E 5/15) 1,000 mls @ 40 mls/hr IV .BY DURATION [facility] Piperacillin Sod/Tazobactam (Sod 3.375 gm/ Sodium Chloride) 50 mls @ 100 mls/ hr IV Q6H [facility] Last Admin: 03/19/19 04:17 Dose: 100 mls/hr Sodium Chloride (Normal Saline) Confirm Administered Dose 50 mls @ as directed .ROUTE .STK-MED ONE Stop: 03/18/19 21:35 Last Admin: 03/18/19 21:40 Dose: Not Given Propofol (Diprivan 100 Ml) Confirm Administered Dose 100 mls @ as directed .ROUTE .STK-MED ONE Stop: 03/18/19 23:04 Last Admin: 03/19/19 01:04 Dose: Not Given Sodium Chloride (Normal Saline) 500 mls @ 999 mls/hr IV .[facility]OL[facility] ONE Stop: 03/19/19 00:00 Last Admin: 03/19/19 00:00 Dose: 999 mls/hr Sodium Chloride (Normal Saline) 100 mls @ 4 mls/sec IV ASDIRECTED [facility] Stop: 03/19/19 10:00 Last Admin: 03/19/19 07:45 Dose: 4 mls/sec Multivitamins/Minerals 10 ml/Chromium/Copper/Manganese/Seleni/Zn 1 ml/ Amino Ac/ Electrol/Dextrose/Calcium 1,011 mls @ 80 mls/hr IV .BY DURATION [facility] Stop: 03/19/19 20:00 Amino Ac/Electrol/Dextrose/Calcium (Clinimix E 5/15) 1,000 mls @ 80 mls/hr IV .BY DURATION [facility] Stop: 03/19/19 20:00 Last Admin: 03/19/19 08:12 Dose: 80 mls/hr Piperacillin/Tazobactam/ (Dextrose 3.375 gm/ Premix) 50 mls @ 100 mls/hr IV Q6H [facility] Last Admin: 03/25/19 09:29 Dose: 100 mls/hr Multivitamins/Minerals 10 ml/Chromium/Copper/Manganese/Seleni/Zn 1 ml/ Amino Ac/ Electrol/Dextrose/Calcium 1,011 mls @ 82 mls/hr IV .BY DURATION [facility] Stop: 03/23/19 20:00 Last Admin: 03/22/19 21:45 Dose: 82 mls/hr Amino Ac/Electrol/Dextrose/Calcium (Clinimix E 5/15) 1,000 mls @ 82 mls/hr IV .BY DURATION [facility] Stop: 03/23/19 20:00 Last Admin: 03/23/19 11:17 Dose: Not Given Albumin Human (Albumin 25%) 25 gm in 100 mls @ 25 mls/hr IV Q24H [facility] Stop: 03/23/19 11:59 Last Admin: 03/23/19 08:20 Dose: 25 mls/hr Albumin Human (Albumin 25%) 25 gm in 100 mls @ 25 mls/hr IV Q24H [facility] Stop: 03/23/19 15:59 Last Admin: 03/23/19 11:22 Dose: 25 mls/hr Azithromycin 250 mg/ Sodium (Chloride) 150 mls @ 150 mls/hr IV Q24H [facility] Last Admin: 03/24/19 11:55 Dose: 150 mls/hr Potassium Chloride 20 meq/ (Premix) 100 mls @ 50 mls/hr IV ONETIME ONE Stop: 03/21/19 10:59 Last Admin: 03/21/19 09:29 Dose: 50 mls/hr Potassium Chloride 40 meq/ (Premix) 100 mls @ 25 mls/hr IV ONETIME ONE Stop: 03/22/19 13:59 Last Admin: 03/22/19 10:01 Dose: 25 mls/hr Magnesium Sulfate 2 gm/ Premix 50 mls @ 25 mls/hr IV Q6H [facility] Stop: 03/26/19 03:59 Last Admin: 03/24/19 08:07 Dose: 25 mls/hr Potassium Chloride 40 meq/ (Premix) 100 mls @ 25 mls/hr IV ONETIME ONE Stop: 03/23/19 13:59 Last Admin: 03/23/19 09:22 Dose: 25 mls/hr Potassium Chloride 40 meq/ (Premix) 100 mls @ 25 mls/hr IV ONETIME ONE Stop: 03/24/19 13:59 Last Admin: 03/24/19 09:54 Dose: 25 mls/hr Insulin Glargine (Lantus Solostar) 10 units SUBCUT BID [facility] Last Admin: 03/16/19 09:27 Dose: 10 unit Insulin Glargine (Lantus Solostar) 14 units SUBCUT BID [facility] Last Admin: 03/18/19 09:06 Dose: 14 units Insulin Glargine (Lantus Solostar) 7 units SUBCUT BID [facility] Stop: 03/18/19 21:01 Last Admin: 03/18/19 21:25 Dose: Not Given Insulin Human Lispro (Humalog) 0 unit SUBCUT Q6H PRN; Protocol PRN Reason: MEDIUM CORRECTIONAL DOSING Last Admin: 03/14/19 17:42 Dose: 7 units Insulin Human Lispro (Humalog) 15 unit SUBCUT ONETIME ONE Stop: 03/14/19 12:05 Last Admin: 03/14/19 12:10 Dose: 15 units Insulin Human Lispro (Humalog) 0 unit SUBCUT ONETIME ONE Stop: 03/15/19 00:16 Last Admin: 03/15/19 00:25 Dose: 12 units Iopamidol (Isovue-370 (76%)) 100 ml IV . DIRECTED [facility] Stop: 03/19/19 10:00 Last Admin: 03/19/19 07:45 Dose: 100 ml Lidocaine HCl (Xylocaine-Mpf 1%) 5 ml INJECT ONETIME ONE Stop: 03/11/19 05:30 Last Admin: 03/11/19 05:39 Dose: 2 ml Lidocaine/Epinephrine (Xylocaine 1% With Epinephrine 1:100,000) Confirm Administered Dose 50 ml .ROUTE .STK-MED ONE Stop: 03/10/19 06:23 Lidocaine/Epinephrine (Xylocaine 1% With Epinephrine 1:100,000) Confirm Administered Dose 50 ml .ROUTE .STK-MED ONE Stop: 03/11/19 07:19 Last Admin: 03/11/19 07:28 Dose: 15 ml Linezolid (Zyvox) 600 mg IRR .STK-MED ONE Stop: 03/11/19 07:39 Last Admin: 03/11/19 07:38 Dose: 600 mg Lorazepam (Ativan) 0.5 mg IVPUSH BID [facility] Last Admin: 03/09/19 09:09 Dose: 0.5 mg Lorazepam (Ativan) 0.25 mg IVPUSH BID [facility] Last Admin: 03/10/19 09:09 Dose: 0.25 mg Meropenem (Merrem) Confirm Administered Dose 500 mg .ROUTE .STK-MED ONE Stop: 03/08/19 12:05 Last Admin: 03/08/19 14:00 Dose: 500 mg Meropenem (Merrem) Confirm Administered Dose 500 mg .ROUTE .STK-MED ONE Stop: 03/10/19 06:23 Meropenem (Merrem) Confirm Administered Dose 500 mg .ROUTE .STK-MED ONE Stop: 03/11/19 06:45 Last Admin: 03/11/19 07:38 Dose: 500 mg Methylprednisolone Sodium Succinate (Solu-Medrol) 40 mg IVPUSH Q6H [facility] Last Admin: 03/20/19 09:50 Dose: 40 mg Neostigmine Methylsulfate (Neostigmine) Confirm Administered Dose 5 mg .ROUTE .STK-MED ONE Stop: 03/08/19 12:18 Non-Formulary Medication (Total Parenteral Nutrition, Central) 1,000 ml .XX .Continue Order [facility] Stop: 03/22/19 12:00 Non-Formulary Medication (Total Parenteral Nutrition, Central) 1,000 ml .XX .Continue Order [facility] Stop: 03/23/19 12:00 Non-Formulary Medication (Total Parenteral Nutrition, Central) 1,000 ml .XX .Continue Order [facility] Stop: 03/24/19 15:00 Ondansetron HCl (Zofran) Confirm Administered Dose 4 mg .ROUTE .STK-MED ONE Stop: 03/08/19 12:18 Ondansetron HCl (Zofran) 4 mg IVPUSH Q6H PRN PRN Reason: Nausea/Vomiting Piperacillin Sod/Tazobactam Sod (Zosyn) Confirm Administered Dose 3.375 gm .ROUTE .STK-MED ONE Stop: 03/18/19 21:34 Last Admin: 03/18/19 21:40 Dose: Not Given Propofol (Diprivan 20 Ml) Confirm Administered Dose 200 mg .ROUTE .STK-MED ONE Stop: 03/08/19 12:18 Propofol (Diprivan 20 Ml) Confirm Administered Dose 200 mg .ROUTE .STK-MED ONE Stop: 03/10/19 07:33 Rocuronium [place] (Zemuron) Confirm Administered Dose 50 mg .ROUTE .STK-MED ONE Stop: 03/08/19 12:18 Succinylcholine Chloride (Quelicin) Confirm Administered Dose 200 mg .ROUTE .STK -MED ONE Stop: 03/08/19 12:18 Succinylcholine Chloride (Quelicin) Confirm Administered Dose 200 mg .ROUTE .STK -MED ONE Stop: 03/10/19 07:33 - Exam Quality Assessment: Supplemental Oxygen, Central Line/PICC, Urine Catheter, DVT Prophylaxis, Restraints General: No Acute Distress, Sedated. No: Alert HEENT: Pupils Equal Lungs: Clear to Auscultation, Normal Respiratory Effort, Decreased Breath Sounds (mild right lung base). No: Crackles Cardiovascular: Regular Rate, Regular Rhythm GI/Abdominal Exam: Normal Bowel Sounds, Soft, Non-Tender, No Distention Extremities: Pedal Edema (mild bilateral foot edema ). No: Increased Warmth Skin: Warm, Dry Psy/Mental Status: No: Alert, Agitated - Problem List & Annotations (1) Small bowel obstruction due to adhesions SNOMED Code(s): 482016295 Code(s): K56.50 - INTESTNL ADHESIONS, UNSP TO PARTIAL VERSUS COMPLETE OBST Status: Acute Current Visit: Yes (2) Acute kidney injury SNOMED Code(s): 46829601, 94464036 Code(s): N17.9 - ACUTE KIDNEY FAILURE, UNSPECIFIED Status: Acute Current Visit: Yes (3) Schizophrenia SNOMED Code(s): 28473698 Code(s): F20.9 - SCHIZOPHRENIA, UNSPECIFIED Status: Chronic Current Visit : No Qualifiers: Schizophrenia type: unspecified Qualified Code(s): F20.9 - Schizophrenia, unspecified (4) Hypothyroid SNOMED Code(s): 02920786 Code(s): E03.9 - HYPOTHYROIDISM, UNSPECIFIED Status: Chronic Current Visit: No Qualifiers: Hypothyroidism type: acquired Qualified Code(s): E03.9 - Hypothyroidism, unspecified (5) HTN (hypertension) SNOMED Code(s): 18881467 Code(s): I10 - ESSENTIAL (PRIMARY) HYPERTENSION Status: Chronic Current Visit: No Qualifiers: Hypertension type: essential hypertension Qualified Code(s): I10 - Essential (primary) hypertension - Problem List Review Problem List Initiated/Reviewed/Updated: Yes - My Orders Last 24 Hours: My Active Orders 03/24/19 09:30 Initiate/Renew Non-Violent Restraints (All Ages) Q24H 03/25/19 09:54 Potassium Chloride Riders [KCL 40 MEQ in Water 100 ML] 40 meq Premix Bag 1 bag IV ONETIME 03/25/19 10:00 Furosemide [Lasix] 20 mg IVPUSH Q12H Scopolamine [Transderm-Scop] 1.5 mg TRDERM Q72H 03/26/19 05:00 CXR [Chest 1V Frontal] [CR] DAILY 03/27/19 05:00 CXR [Chest 1V Frontal] [CR] DAILY - Plan Plan:: ASSESSMENT AND PLAN - Acute respiratory failure with hypoxia and hypercapnia - secondary to aspiration with vomiting 03/18. Chest x-ray stable. Secretions are the main limiting factor at this time. He is down to 35% FiO2. -Continue current ventilator settings -discontinue antibiotics -Mucomyst nebulizers -Diuresis -trial of scopolamine patch to help with secretions -Vigorous pulmonary toilet -Daily breathing trials Small bowel obstruction with pneumatosis - status post emergent laparotomy with small bowel resection and right colectomy 03/08. Abdomen not distended. He is having bowel movements. -Postoperative care per surgical team -He is receiving TPN -Pain control -discontinue azithromycin with current diarrhea Type 2 diabetes mellitus - blood sugar levels have remained in goal range. -Continue glucometers every 6 hours -Continue insulin in the TPN -High dose sliding scale Humalog Hypokalemia - potassium level improved but still borderline low and will need supplementation with ongoing diuresis. -Supplement this morning -Recheck in the morning Severe schizophrenia - patient is very debilitated because of his psychiatric illness. -Continue low-dose Haldol -Continue regular dose Depakote -low dose lorazepam -Restart oral medications when able Acute kidney injury - resolved -Continue to closely monitor urine output and renal function Maintenance issues - - DVT prophylaxis - mechanical - GI prophylaxis - IV PPI - Nutrition - nothing by mouth, currently receiving TPN for nutritional support - Rodriguez catheter - placed for strict intake and output monitoring with a critical patient Disposition - anticipate discharge home versus more likely the custodial. the patient's hospital stay has been greatly prolonged by multiple unforeseen complications including prolonged return of bowel function postoperatively, aspiration leading to respiratory failure and reintubation. aFrhan Nj M.D.
[2019-03-25] MEDS ORDERED: Potassium Chloride Riders 40 MEQ in Premix Bag 1 BAG IV ONE (10:00)
[2019-03-25] MEDS: 1: AA 5%/Calcium/D15W/Lytes 1,000 ML with MVI, Adult with Vitamin K 10 ML, Chromium/Copp IV SCH ×6 (10:31→23:13)
[2019-03-25] MEDS: Scopolamine 1.5 MG Transdermal Patch TRDERM SCH (10:51)
[2019-03-25] MEDS: Pantoprazole 40 MG Vial IV SCH (17:24)
[2019-03-25] MEDS: Latanoprost 0.005% Ophth Soln 2.5 ML Bottle EYEBOTH SCH (21:14)
[2019-03-26] MEDS: Metoprolol Tartrate 5 MG/5 ML SDV IV SCH ×4 (00:12→17:34)
[2019-03-26] MEDS: LORazepam 2 MG/ML SDV IVPUSH PRN (01:39)
--- NOTE | 2019-03-26 02:25 | CRLCR ---
Indication: Intubation Technique: Chest 1 view Comparison: March 25, 2019 Findings/Impression: Endotracheal tube tip terminates 5.2 cm above the level of the yair. Right-sided central venous catheter tip terminates at the level of the right atrium. Opacity at the right lung base may reflect atelectasis/infection and pleural fluid and is relatively unchanged compared to the prior study. A gastric drainage tube tip terminates at the level of the gastric fundus. There is no pneumothorax. Stable cardiac size. Dictated by Joyce Saravia MD @ Mar 26 2019 2:24AM Signed by Dr. Joyce Saravia @ Mar 26 2019 2:24AM
[2019-03-26] MEDS: Sodium Chloride 5% Ophth Soln 15 ML Bottle EYEBOTH SCH ×4 (06:12→21:25)
[2019-03-26] MEDS ORDERED: Central Total Parenteral Nutrition Bag SCH (06:45)
[2019-03-26] MEDS: Acetylcysteine 20% 200 MG/ML 4 ML Nebulizer Soln SDV NEB SCH ×2 (07:02→21:24)
[2019-03-26] MEDS: Albuterol/Ipratropium 3.0-0.5 MG/3 ML Neb Soln INH SCH ×4 (07:02→21:24)
[2019-03-26] MEDS: Docusate Sodium 100 MG Cap PO SCH ×2 (08:06→21:09)
[2019-03-26] MEDS: Dimethicone 20%/Zinc Oxide 25% 56 GM Spray Bottle TOP PRN (08:07)
[2019-03-26] MEDS: SCOPOLAMINE PATCH CHECK TOP SCH (08:07)
[2019-03-26] MEDS: LORazepam 2 MG/ML SDV IVPUSH SCH ×2 (08:31→21:23)
[2019-03-26] MEDS: Haloperidol Lactate 5 MG/ML SDV IVPUSH SCH ×2 (08:36→21:24)
[2019-03-26] MEDS: Insulin Glargine,Human Rec. Analog 100 Units/ML 3 ML Pen SUBCUT SCH ×2 (08:41→21:31)
--- NOTE | 2019-03-26 09:05 | PCM.PN ---
- General Info Date of Service: 03/26/19 Subjective Update: There were no acute events overnight. The patient has not had any fevers and vital signs have been stable other than low normal blood pressure. He did not do well with his weaning trial this morning and it was terminated after between 10 and 15 minutes. Trials have been limited by copious secretions for the past 3 days. Secretions seem a little better after the scopolamine patch was initiated yesterday. Chest x-ray is stable with small effusions and the right lower lung infiltrate. Intake and output was balanced yesterday. Functional Status: Reports: Other (intubated and sedated ) - Review of Systems General: Denies: Fever - Patient Data Vitals - Most Recent: Last Vital Signs Temp 36.8 C 03/26/19 08:00 Pulse 99 03/26/19 08:00 Resp 18 03/26/19 08:00 BP 122/52 L 03/26/19 08:00 Pulse Ox 92 L 03/26/19 08:00 Weight - Most Recent: 75.4 kg I&O - Last 24 Hours: Intake & Output 03/25/19 03/26/19 03/26/19 22:59 06:59 14:59 Intake Total 1639 1606 Output Total 485 1700 Balance 1154 -94 Lab Results Last 24 Hours: Laboratory Results - last 24 hr 03/26/19 03/26/19 03/26/19 Range/Units 04:15 04:15 04:15 WBC 8.1 (4.5-11.0) K/uL RBC 3.18 L (4.30-5.90) M/uL Hgb 8.9 L (12.0-15.0) g/dL Hct 30.4 L (40.0-54.0) % MCV 96 (80-98) fL MCH 28 (27-31) pg MCHC 29 L (32-36) % Plt Count 431 H (150-400) K/uL Puncture Site Line ABG pH 7.443 (7.350-7.450) ABG pCO2 40.9 (35.0-42.0) mmHg ABG pO2 70.8 L (75.0-100.0) mmHg ABG HCO3 27.6 H (22.0-26.0) mmol/L ABG Total CO2 25.6 (23.0-27.0) mmol/L ABG O2 Saturation 94.2 L (95.0-98.0) % ABG O2 Content 12.2 L (15.0-23.0) %vol ABG Base Excess 3.6 mm/L ABG Hemoglobin 9.4 L (13.5-18.0) g/dL ABG Oxyhemoglobin 91.8 % ABG Carboxyhemoglobin 1.7 H (0.0-1.6) % ABG Methemoglobin 0.8 % O2 Delivery Device Ventilator Oxygen Flow Rate L Sodium 147 (140-148) mmol/L Potassium 3.9 (3.6-5.2) mmol/L Chloride 110 H (100-108) mmol/L Carbon Dioxide 27 (21-32) mmol/L Anion Gap 13.9 (5.0-14.0) mmol/L BUN 31 H (7-18) mg/dL Creatinine 1.0 (0.8-1.3) mg/dL Est Cr Clr Drug Dosing 67.42 mL/min Estimated GFR (MDRD) > 60 (>60) Glucose 141 H (74-106) mg/dL Calcium 8.7 (8.5-10.1) mg/dL Phosphorus 4.6 (2.5-4.9) mg/dL Magnesium 2.0 (1.8-2.4) mg/dL Total Bilirubin 0.3 (0.2-1.0) mg/dL AST 11 L (15-37) U/L ALT 19 (12-78) U/L Alkaline Phosphatase 172 H (46-116) U/L NT-Pro-B Natriuret Pep 281 H (5-125) pg/mL Total Protein 6.1 L (6.4-8.2) g/dL Albumin 2.7 L (3.4-5.0) g/dL Globulin 3.4 (2.3-3.5) g/dL Albumin/Globulin Ratio 0.8 L (1.2-2.2) Quentin Results Last 24 Hours: Microbiology 03/20/19 06:33 Aerobic Blood Culture - Final Blood - Central Line NO GROWTH AFTER 5 DAYS Anaerobic Blood Culture - Final NO GROWTH AFTER 5 DAYS 03/20/19 06:35 Aerobic Blood Culture - Final Blood - Central Line NO GROWTH AFTER 5 DAYS Anaerobic Blood Culture - Final NO GROWTH AFTER 5 DAYS Med Orders - Current: Current Medications Acetylcysteine (Mucomyst 20%) 200 mg NEB BIDRT [facility] Last Admin: 03/26/19 07:02 Dose: 200 mg Albuterol (Proventil Neb Soln) 2.5 mg NEB Q4H PRN PRN Reason: Shortness Of Breath/wheezing Last Admin: 03/10/19 00:24 Dose: 2.5 mg Albuterol/Ipratropium (Duoneb 3.0-0.5 Mg/3 Ml) 3 ml INH QIDRT [facility] Last Admin: 03/26/19 07:02 Dose: 3 ml Atropine Sulfate (Atropine 1%) 4 ml SL BID [facility] [place] Dextrose (Glutose 15) 15 gm PO ASDIRECTED PRN PRN Reason: HYPOGLYCEMIA Dextrose/Water (Dextrose 50% In Water) 50 ml IVPUSH ASDIRECTED PRN PRN Reason: HYPOGLYCEMIA Dimethicone/Zinc Oxide (Rash Relief-Zinc Oxide [place]) 0 gm TOP ASDIRECTED PRN PRN Reason: Perineal Comfort Measure Last Admin: 03/26/19 08:07 Dose: 4 spray Diphenhydramine HCl (Benadryl) 25 mg IVPUSH Q4H PRN PRN Reason: Itching Last Admin: 03/18/19 03:20 Dose: 25 mg Docusate Sodium (Colace) 100 mg PO BID [facility] Last Admin: 03/26/19 08:06 Dose: Not Given Furosemide (Lasix) 20 mg IVPUSH Q8H [facility] Glucagon (Glucagen) 1 mg IM ASDIRECTED PRN PRN Reason: HYPOGLYCEMIA Haloperidol Lactate (Haldol) 2 mg IVPUSH Q4H PRN PRN Reason: Agitation Last Admin: 03/18/19 21:57 Dose: 2 mg Haloperidol Lactate (Haldol) 2.5 mg IVPUSH BID [facility] [place] Last Admin: 03/26/19 08:36 Dose: 2.5 mg Heparin Sodium (Porcine) (Heparin Lock Flush 100 Units/Ml) 500 units FLUSH ASDIRECTED PRN PRN Reason: Keep Vein Open Last Admin: 03/20/19 06:39 Dose: 500 units Valproic Acid 500 mg/ Sodium (Chloride) 55 mls @ 55 mls/hr IV Q8H [facility] [place] Last Admin: 03/26/19 05:04 Dose: 55 mls/hr Propofol (Diprivan 100 Ml) 100 mls @ 2.195 mls/hr IV TITRATE [facility]; Protocol Last Titration: 03/26/19 08:04 Dose: 50 mcg/kg/min, 21.949 mls/hr Heparin Sodium (Porcine) 5,000 (units/ Sodium Chloride) 501 mls @ 0.1 mls/hr IV ASDIRECTED [facility] [place] Last Admin: 03/24/19 13:26 Dose: 1 units/hr, 0.1 mls/hr Sodium Chloride (Normal Saline) 1,000 mls @ 20 mls/hr IV ASDIRECTED [facility] [place] Last Admin: 03/19/19 08:13 Dose: 125 mls/hr Multivitamins/Minerals 10 ml/Chromium/Copper/Manganese/Seleni/Zn 1 ml/ Amino Ac/ Electrol/Dextrose/Calcium 1,011 mls @ 82 mls/hr IV .BY DURATION [facility] Last Admin: 03/25/19 23:13 Dose: 82 mls/hr Amino Ac/Electrol/Dextrose/Calcium (Clinimix E 5/15) 1,000 mls @ 82 mls/hr IV .BY DURATION [facility] [place] Last Admin: 03/25/19 10:31 Dose: 82 mls/hr Insulin Glargine (Lantus Solostar) 12 units SUBCUT BID [facility] [place] Last Admin: 03/26/19 08:41 Dose: 12 units Insulin Human Lispro (Humalog) 0 unit SUBCUT ASDIRECTED [facility]; Protocol Last Admin: 03/23/19 15:11 Dose: 3 units Latanoprost (Xalatan 0.005% Ophth Soln) 0 ml EYEBOTH BEDTIME [facility] [place] Last Admin: 03/25/19 21:14 Dose: 1 drop Levothyroxine Sodium (Synthroid) 100 mcg IVPUSH DAILY [facility] [place] Last Admin: 03/25/19 08:32 Dose: 100 mcg Lorazepam (Ativan) 0.5 mg IVPUSH Q4H PRN PRN Reason: Anxiety Last Admin: 03/26/19 01:39 Dose: 0.5 mg Lorazepam (Ativan) 0.5 mg IVPUSH BID [facility] Last Admin: 03/26/19 08:31 Dose: 0.5 mg Metoprolol Tartrate (Lopressor) 5 mg IV Q6H [facility] Last Admin: 03/26/19 07:56 Dose: Not Given Naloxone HCl (Narcan) 0.1 mg IV ASDIRECTED PRN PRN Reason: decreased respiratory rate Scopolamine Patch (Check) 1 each TOP DAILY [facility] Last Admin: 03/26/19 08:07 Dose: 1 each Non-Formulary Medication (Total Parenteral Nutrition, Central) 1,000 ml .XX .Continue Order [facility] Stop: 03/26/19 12:00 Ondansetron HCl (Zofran) 4 mg IVPUSH Q4H PRN PRN Reason: Nausea/Vomiting Last Admin: 03/18/19 17:31 Dose: 4 mg Pantoprazole Sodium (Protonix Iv) 40 mg IV Q24H [facility] [place] Last Admin: 03/25/19 17:24 Dose: 40 mg Scopolamine (Transderm-Scop) 1.5 mg TRDERM Q72H [facility] Last Admin: 03/25/19 10:51 Dose: 1.5 mg Sodium Chloride (Joseph 128 5% Ophth Soln) 0 ml EYEBOTH QID [facility] Last Admin: 03/26/19 06:12 Dose: 1 drop Discontinued Medications Acetylcysteine (Mucomyst 20%) 400 mg INH BIDRT [facility] [place] Last Admin: 03/12/19 07:48 Dose: 200 mg Acetylcysteine (Mucomyst 20%) 200 mg INH BIDRT [facility] [place] Stop: 03/12/19 23:59 Last Admin: 03/12/19 20:44 Dose: 200 mg Bisacodyl (Dulcolax) 10 mg PO BID [facility] [place] Last Admin: 03/17/19 20:35 Dose: Not Given Bisacodyl (Dulcolax) 10 mg RECTAL ONETIME ONE Stop: 03/17/19 17:01 Last Admin: 03/17/19 17:10 Dose: 10 mg Bupivacaine HCl (Marcaine 0.5%) Confirm Administered Dose 50 ml .ROUTE .STK-MED ONE Stop: 03/10/19 06:23 Bupivacaine HCl (Marcaine 0.5%) Confirm Administered Dose 50 ml .ROUTE .STK-MED ONE Stop: 03/11/19 07:19 Last Admin: 03/11/19 07:28 Dose: 15 ml Ropivacaine 36 ml/Dexamethasone 8 mg/Epinephrine HCl 0.4 mg/ Sodium Chloride 41.6 ml 0 ml NERVRT ASDIRECTED [facility] Last Admin: 03/08/19 15:05 Dose: 80 syringe Ropivacaine 36 ml/Dexamethasone 8 mg/Epinephrine HCl 0.4 mg/ Sodium Chloride 41.6 ml 0 ml NERVRT ASDIRECTED [facility] Last Admin: 03/11/19 07:41 Dose: 80 syringe Dexamethasone (Dexamethasone) Confirm Administered Dose 4 mg .ROUTE .STK-MED ONE Stop: 03/08/19 12:18 Diphenhydramine HCl (Benadryl) 25 mg IVPUSH Q6H PRN PRN Reason: Itching Diphenhydramine HCl (Benadryl) 25 mg PO Q6H PRN PRN Reason: Itching Fentanyl (Sublimaze) Confirm Administered Dose 250 mcg .ROUTE .STK-MED ONE Stop: 03/08/19 12:19 Furosemide (Lasix) 20 mg IVPUSH ONETIME ONE Stop: 03/09/19 21:56 Last Admin: 03/09/19 22:10 Dose: 20 mg Furosemide (Lasix) Confirm Administered Dose 20 mg .ROUTE .STK-MED ONE Stop: 03/09/19 22:05 Last Admin: 03/09/19 22:10 Dose: Not Given Furosemide (Lasix) 20 mg IVPUSH ONETIME ONE Stop: 03/10/19 06:33 Last Admin: 03/10/19 07:20 Dose: 20 mg Furosemide (Lasix) 20 mg IVPUSH ONETIME ONE Stop: 03/12/19 18:01 Last Admin: 03/12/19 17:43 Dose: 20 mg Furosemide (Lasix) 20 mg IVPUSH ONETIME ONE Stop: 03/12/19 07:31 Last Admin: 03/12/19 07:44 Dose: 20 mg Furosemide (Lasix) 10 mg IVPUSH Q12H [facility] Stop: 03/13/19 21:01 Last Admin: 03/13/19 20:29 Dose: 10 mg Furosemide (Lasix) 20 mg IVPUSH NOW ONE Stop: 03/15/19 11:31 Last Admin: 03/15/19 11:38 Dose: 20 mg Furosemide (Lasix) 20 mg IVPUSH ONETIME ONE Stop: 03/16/19 13:31 Last Admin: 03/16/19 14:18 Dose: 20 mg Furosemide (Lasix) 20 mg IVPUSH NOW ONE Stop: 03/17/19 09:16 Last Admin: 03/17/19 09:47 Dose: 20 mg Furosemide (Lasix) 20 mg IVPUSH Q12H [facility] [place] Stop: 03/22/19 21:31 Last Admin: 03/22/19 22:10 Dose: 20 mg Furosemide (Lasix) 20 mg IVPUSH Q12H [facility] [place] Stop: 03/23/19 22:01 Last Admin: 03/23/19 22:47 Dose: 20 mg Furosemide (Lasix) 20 mg IVPUSH Q8H [facility] Stop: 03/25/19 02:01 Last Admin: 03/25/19 02:11 Dose: 20 mg Furosemide (Lasix) 20 mg IVPUSH Q12H [facility] [place] Last Admin: 03/25/19 21:32 Dose: 20 mg Glycopyrrolate (Robinul) Confirm Administered Dose 1 mg .ROUTE .STK-MED ONE Stop: 03/08/19 12:18 Haloperidol Lactate (Haldol) 5 mg IVPUSH BID [facility] [place] Last Admin: 03/09/19 09:06 Dose: 5 mg Heparin Sodium (Porcine) (Heparin Sodium) Confirm Administered Dose 5,000 units .ROUTE .STK-MED ONE Stop: 03/10/19 07:04 Last Admin: 03/10/19 07:57 Dose: Not Given Heparin Sodium (Porcine) (Heparin Lock Flush 100 Units/Ml) Confirm Administered Dose 1,000 units .ROUTE .STTargazyme-MED ONE Stop: 03/11/19 07:32 Last Admin: 03/11/19 08:31 Dose: Not Given Heparin Sodium (Porcine) (Heparin Sodium) Confirm Administered Dose 5,000 units .ROUTE .STK-MED ONE Stop: 03/18/19 23:03 Last Admin: 03/19/19 02:36 Dose: Not Given Hydromorphone HCl (Dilaudid Vp [employer] 15 Mg In Ns 30 Ml) 0 mg IV ASDIRECTED PRN; Protocol PRN Reason: PAIN Last Admin: 03/16/19 16:43 Dose: 15 mg Sodium Chloride (Normal Saline) 1,000 mls @ 1,000 mls/hr IV ASDIRECTED [facility] [place] Last Admin: 03/08/19 10:02 Dose: 1,000 mls/hr Ampicillin Sodium/Sulbactam (Sodium 1.5 gm/ Sodium Chloride) 50 mls @ 100 mls/ hr IV Q6H [facility] [place] Last Admin: 03/08/19 13:30 Dose: 100 mls/hr Aztreonam 1 gm/ Sodium (Chloride) 50 mls @ 100 mls/hr IV Q12H [facility] [place] Last Admin: 03/08/19 13:30 Dose: 100 mls/hr Lactated Ringer's (Ringers, Lactated) 1,000 mls @ 150 mls/hr IV ASDIRECTED [facility] [place] Last Admin: 03/08/19 13:31 Dose: 150 mls/hr Lactated Ringer's (Ringers, Lactated) Confirm Administered Dose 1,000 mls @ as directed .ROUTE .STK-MED ONE Stop: 03/08/19 15:16 Lactated Ringer's (Ringers, Lactated) 1,000 mls @ 100 mls/hr IV ASDIRECTED [facility] [place] Last Admin: 03/09/19 03:26 Dose: 100 mls/hr Dextrose/Lactated Ringer's (Dextrose 5%-Lactated Ringers) 1,000 mls @ 100 mls/ hr IV ASDIRECTED [facility] [place] Stop: 03/12/19 11:59 Last Admin: 03/11/19 23:35 Dose: 100 mls/hr Ampicillin Sodium/Sulbactam (Sodium 3 gm/ Sodium Chloride) 100 mls @ 200 mls/ hr IV Q6H [facility] [place] Last Admin: 03/13/19 05:19 Dose: 200 mls/hr Aztreonam 1 gm/ Sodium (Chloride) 50 mls @ 100 mls/hr IV Q8H [facility] [place] Last Admin: 03/13/19 04:23 Dose: 100 mls/hr Potassium Chloride 20 meq/Lidocaine HCl 2 ml/ Sodium Chloride 112 mls @ 56 mls/ hr IV Q2H [facility] [place] Stop: 03/09/19 15:59 Last Admin: 03/09/19 17:30 Dose: 56 mls/hr Lactated Ringer's (Ringers, Lactated) 750 mls @ 750 mls/hr IV BOLUS ONE Stop: 03/09/19 16:25 Last Admin: 03/09/19 15:53 Dose: 750 mls/hr Lactated Ringer's (Ringers, Lactated) 750 mls @ 999 mls/hr IV BOLUS ONE Stop: 03/09/19 21:15 Last Admin: 03/09/19 21:08 Dose: 999 mls/hr Heparin Sodium (Porcine) 5,000 (units/ Sodium Chloride) 501 mls @ 5 mls/hr IV ASDIRECTED [facility] [place] Last Admin: 03/12/19 13:58 Dose: 5 mls/hr Propofol (Diprivan 100 Ml) 100 mls @ 2.191 mls/hr IV TITRATE [facility]; Protocol Last Titration: 03/15/19 07:18 Dose: 0 mcg/kg/min, 0 mls/hr Linezolid 600 mg/ Premix 300 mls @ 300 mls/hr IV Q12H [facility] Last Admin: 03/11/19 21:53 Dose: 300 mls/hr Potassium Chloride 20 meq/Lidocaine HCl 2 ml/ Sodium Chloride 112 mls @ 56 mls/ hr IV Q2H [facility] Stop: 03/10/19 16:29 Last Admin: 03/10/19 16:07 Dose: 56 mls/hr Potassium Chloride 20 meq/ (Premix) 0 mls @ 50 mls/hr IV Q2H [facility] Stop: 03/11/19 07:28 Last Admin: 03/11/19 07:32 Dose: 50 mls/hr Magnesium Sulfate 2 gm/ Premix 50 mls @ 25 mls/hr IV Q6H [facility] [place] Last Admin: 03/12/19 04:27 Dose: 25 mls/hr Potassium Phosphate 20 mmole/ (Sodium Chloride) 256.6667 mls @ 85 mls/hr IV Q3H [facility] Stop: 03/11/19 17:59 Last Admin: 03/11/19 14:42 Dose: 85 mls/hr Multivitamins/Minerals 10 ml/Chromium/Copper/Manganese/Seleni/Zn 1 ml/ Amino Ac/ Electrol/Dextrose/Calcium 1,011 mls @ 82 mls/hr IV .BY DURATION [facility] [place] Last Admin: 03/13/19 12:34 Dose: 82 mls/hr Amino Ac/Electrol/Dextrose/Calcium (Clinimix E 15) 1,000 mls @ 82 mls/hr IV .BY DURATION [facility] [place] Last Admin: 03/14/19 01:20 Dose: 82 mls/hr Sodium Chloride (Normal Saline) 1,000 mls @ 20 mls/hr IV ASDIRECTED [facility] [place] Last Admin: 03/13/19 22:58 Dose: 20 mls/hr Potassium Phosphate 20 mmole/ (Sodium Chloride) 256.6667 mls @ 85.556 mls/hr IV Q3H [facility] Stop: 03/12/19 16:59 Last Admin: 03/12/19 14:49 Dose: 85.556 mls/hr Potassium Chloride 20 meq/ (Premix) 100 mls @ 50 mls/hr IV ONETIME ONE Stop: 03/13/19 10:59 Last Admin: 03/13/19 09:29 Dose: 50 mls/hr Potassium Phosphate 30 mmole/ (Sodium Chloride) 110 mls @ 30 mls/hr IV ONETIME ONE Stop: 03/13/19 14:39 Last Admin: 03/13/19 12:14 Dose: 30 mls/hr Linezolid 600 mg/ Premix 300 mls @ 300 mls/hr IV Q12H [facility] [place] Last Admin: 03/20/19 09:52 Dose: 300 mls/hr Magnesium Sulfate 2 gm/ Premix 50 mls @ 25 mls/hr IV Q6H [facility] [place] Stop: 03/16/19 03:59 Last Admin: 03/16/19 01:59 Dose: 25 mls/hr Azithromycin 250 mg/ Sodium (Chloride) 150 mls @ 150 mls/hr IV Q12H [facility] [place] Azithromycin 250 mg/ Sodium (Chloride) 150 mls @ 150 mls/hr IV Q24H [facility] [place] Last Admin: 03/17/19 11:28 Dose: 150 mls/hr Multivitamins/Minerals 10 ml/Chromium/Copper/Manganese/Seleni/Zn 1 ml/ Amino Ac/ Electrol/Dextrose/Calcium 1,011 mls @ 82 mls/hr IV .BY DURATION [facility] [place] Stop: 03/18/19 14:59 Last Admin: 03/17/19 14:26 Dose: 82 mls/hr Amino Ac/Electrol/Dextrose/Calcium (Clinimix E 5/15) 1,000 mls @ 82 mls/hr IV .BY DURATION [facility] [place] Stop: 03/18/19 14:59 Last Admin: 03/18/19 03:38 Dose: 82 mls/hr Multivitamins/Minerals 10 ml/Chromium/Copper/Manganese/Seleni/Zn 1 ml/ Amino Ac/ Electrol/Dextrose/Calcium 1,011 mls @ 80 mls/hr IV .BY DURATION [facility] [place] Last Admin: 03/18/19 16:05 Dose: 40 mls/hr Amino Ac/Electrol/Dextrose/Calcium (Clinimix E 5/15) 1,000 mls @ 40 mls/hr IV .BY DURATION [facility] [place] Piperacillin Sod/Tazobactam (Sod 3.375 gm/ Sodium Chloride) 50 mls @ 100 mls/ hr IV Q6H [facility] [place] Last Admin: 03/19/19 04:17 Dose: 100 mls/hr Sodium Chloride (Normal Saline) Confirm Administered Dose 50 mls @ as directed .ROUTE .STK-MED ONE Stop: 03/18/19 21:35 Last Admin: 03/18/19 21:40 Dose: Not Given Propofol (Diprivan 100 Ml) Confirm Administered Dose 100 mls @ as directed .ROUTE .STK-MED ONE Stop: 03/18/19 23:04 Last Admin: 03/19/19 01:04 Dose: Not Given Sodium Chloride (Normal Saline) 500 mls @ 999 mls/hr IV .BOLUS ONE Stop: 03/19/19 00:00 Last Admin: 03/19/19 00:00 Dose: 999 mls/hr Sodium Chloride (Normal Saline) 100 mls @ 4 mls/sec IV ASDIRECTED [facility] Stop: 03/19/19 10:00 Last Admin: 03/19/19 07:45 Dose: 4 mls/sec Multivitamins/Minerals 10 ml/Chromium/Copper/Manganese/Seleni/Zn 1 ml/ Amino Ac/ Electrol/Dextrose/Calcium 1,011 mls @ 80 mls/hr IV .BY DURATION [facility] [place] Stop: 03/19/19 20:00 Amino Ac/Electrol/Dextrose/Calcium (Clinimix E 5/15) 1,000 mls @ 80 mls/hr IV .BY DURATION [facility] [place] Stop: 03/19/19 20:00 Last Admin: 03/19/19 08:12 Dose: 80 mls/hr Piperacillin/Tazobactam/ (Dextrose 3.375 gm/ Premix) 50 mls @ 100 mls/hr IV Q6H [facility] [place] Last Admin: 03/25/19 09:29 Dose: 100 mls/hr Multivitamins/Minerals 10 ml/Chromium/Copper/Manganese/Seleni/Zn 1 ml/ Amino Ac/ Electrol/Dextrose/Calcium 1,011 mls @ 82 mls/hr IV .BY DURATION [facility] [place] Stop: 03/23/19 20:00 Last Admin: 03/22/19 21:45 Dose: 82 mls/hr Amino Ac/Electrol/Dextrose/Calcium (Clinimix E 5/15) 1,000 mls @ 82 mls/hr IV .BY DURATION [facility] [place] Stop: 03/23/19 20:00 Last Admin: 03/23/19 11:17 Dose: Not Given Albumin Human (Albumin 25%) 25 gm in 100 mls @ 25 mls/hr IV Q24H [facility] [place] Stop: 03/23/19 11:59 Last Admin: 03/23/19 08:20 Dose: 25 mls/hr Albumin Human (Albumin 25%) 25 gm in 100 mls @ 25 mls/hr IV Q24H [facility] [place] Stop: 03/23/19 15:59 Last Admin: 03/23/19 11:22 Dose: 25 mls/hr Azithromycin 250 mg/ Sodium (Chloride) 150 mls @ 150 mls/hr IV Q24H [facility] [place] Last Admin: 03/24/19 11:55 Dose: 150 mls/hr Potassium Chloride 20 meq/ (Premix) 100 mls @ 50 mls/hr IV ONETIME ONE Stop: 03/21/19 10:59 Last Admin: 03/21/19 09:29 Dose: 50 mls/hr Potassium Chloride 40 meq/ (Premix) 100 mls @ 25 mls/hr IV ONETIME ONE Stop: 03/22/19 13:59 Last Admin: 03/22/19 10:01 Dose: 25 mls/hr Magnesium Sulfate 2 gm/ Premix 50 mls @ 25 mls/hr IV Q6H [facility] [place] Stop: 03/26/19 03:59 Last Admin: 03/24/19 08:07 Dose: 25 mls/hr Potassium Chloride 40 meq/ (Premix) 100 mls @ 25 mls/hr IV ONETIME ONE Stop: 03/23/19 13:59 Last Admin: 03/23/19 09:22 Dose: 25 mls/hr Potassium Chloride 40 meq/ (Premix) 100 mls @ 25 mls/hr IV ONETIME ONE Stop: 03/24/19 13:59 Last Admin: 03/24/19 09:54 Dose: 25 mls/hr Potassium Chloride 40 meq/ (Premix) 100 mls @ 25 mls/hr IV ONETIME ONE Stop: 03/25/19 13:59 Last Admin: 03/25/19 10:32 Dose: 25 mls/hr Insulin Glargine (Lantus Solostar) 10 units SUBCUT BID [facility] [place] Last Admin: 03/16/19 09:27 Dose: 10 unit Insulin Glargine (Lantus Solostar) 14 units SUBCUT BID [facility] [place] Last Admin: 03/18/19 09:06 Dose: 14 units Insulin Glargine (Lantus Solostar) 7 units SUBCUT BID [facility] [place] Stop: 03/18/19 21:01 Last Admin: 03/18/19 21:25 Dose: Not Given Insulin Human Lispro (Humalog) 0 unit SUBCUT Q6H PRN; Protocol PRN Reason: MEDIUM CORRECTIONAL DOSING Last Admin: 03/14/19 17:42 Dose: 7 units Insulin Human Lispro (Humalog) 15 unit SUBCUT ONETIME ONE Stop: 03/14/19 12:05 Last Admin: 03/14/19 12:10 Dose: 15 units Insulin Human Lispro (Humalog) 0 unit SUBCUT ONETIME ONE Stop: 03/15/19 00:16 Last Admin: 03/15/19 00:25 Dose: 12 units Iopamidol (Isovue-370 (76%)) 100 ml IV . DIRECTED [facility] [place] Stop: 03/19/19 10:00 Last Admin: 03/19/19 07:45 Dose: 100 ml Lidocaine HCl (Xylocaine-Mpf 1%) 5 ml INJECT ONETIME ONE Stop: 03/11/19 05:30 Last Admin: 03/11/19 05:39 Dose: 2 ml Lidocaine/Epinephrine (Xylocaine 1% With Epinephrine 1:100,000) Confirm Administered Dose 50 ml .ROUTE .STK-MED ONE Stop: 03/10/19 06:23 Lidocaine/Epinephrine (Xylocaine 1% With Epinephrine 1:100,000) Confirm Administered Dose 50 ml .ROUTE .STK-MED ONE Stop: 03/11/19 07:19 Last Admin: 03/11/19 07:28 Dose: 15 ml Linezolid (Zyvox) 600 mg IRR .STK-MED ONE Stop: 03/11/19 07:39 Last Admin: 03/11/19 07:38 Dose: 600 mg Lorazepam (Ativan) 0.5 mg IVPUSH BID [facility] Last Admin: 03/09/19 09:09 Dose: 0.5 mg Lorazepam (Ativan) 0.25 mg IVPUSH BID [facility] [place] Last Admin: 03/10/19 09:09 Dose: 0.25 mg Meropenem (Merrem) Confirm Administered Dose 500 mg .ROUTE .STK-MED ONE Stop: 03/08/19 12:05 Last Admin: 03/08/19 14:00 Dose: 500 mg Meropenem (Merrem) Confirm Administered Dose 500 mg .ROUTE .STK-MED ONE Stop: 03/10/19 06:23 Meropenem (Merrem) Confirm Administered Dose 500 mg .ROUTE .STK-MED ONE Stop: 03/11/19 06:45 Last Admin: 03/11/19 07:38 Dose: 500 mg Methylprednisolone Sodium Succinate (Solu-Medrol) 40 mg IVPUSH Q6H [facility] Last Admin: 03/20/19 09:50 Dose: 40 mg Neostigmine Methylsulfate (Neostigmine) Confirm Administered Dose 5 mg .ROUTE .STK-MED ONE Stop: 03/08/19 12:18 Non-Formulary Medication (Total Parenteral Nutrition, Central) 1,000 ml .XX .Continue Order [facility] Stop: 03/22/19 12:00 Non-Formulary Medication (Total Parenteral Nutrition, Central) 1,000 ml .XX .Continue Order [facility] [place] Stop: 03/23/19 12:00 Non-Formulary Medication (Total Parenteral Nutrition, Central) 1,000 ml .XX .Continue Order [facility] [place] Stop: 03/24/19 15:00 Ondansetron HCl (Zofran) Confirm Administered Dose 4 mg .ROUTE .STK-MED ONE Stop: 03/08/19 12:18 Ondansetron HCl (Zofran) 4 mg IVPUSH Q6H PRN PRN Reason: Nausea/Vomiting Piperacillin Sod/Tazobactam Sod (Zosyn) Confirm Administered Dose 3.375 gm .ROUTE .STK-MED ONE Stop: 03/18/19 21:34 Last Admin: 03/18/19 21:40 Dose: Not Given Propofol (Diprivan 20 Ml) Confirm Administered Dose 200 mg .ROUTE .STK-MED ONE Stop: 03/08/19 12:18 Propofol (Diprivan 20 Ml) Confirm Administered Dose 200 mg .ROUTE .STK-MED ONE Stop: 03/10/19 07:33 Rocuronium Stebbins (Zemuron) Confirm Administered Dose 50 mg .ROUTE .STK-MED ONE Stop: 03/08/19 12:18 Succinylcholine Chloride (Quelicin) Confirm Administered Dose 200 mg .ROUTE .STK -MED ONE Stop: 03/08/19 12:18 Succinylcholine Chloride (Quelicin) Confirm Administered Dose 200 mg .ROUTE .STK -MED ONE Stop: 03/10/19 07:33 - Exam Quality Assessment: Supplemental Oxygen General: No Acute Distress, Sedated. No: Alert HEENT: Pupils Equal Lungs: Normal Respiratory Effort, Decreased Breath Sounds (right lung base). No : Wheezing Cardiovascular: Regular Rate, Regular Rhythm GI/Abdominal Exam: Soft, No Distention, Abnormal Bowel Sounds (hypo) Extremities: Pedal Edema. No: Increased Warmth Peripheral Pulses: 1+: Dorsalis Pedis (L), Dorsalis Pedis (R) Skin: Warm, Dry Psy/Mental Status: No: Alert, Agitated - Problem List & Annotations (1) Small bowel obstruction due to adhesions SNOMED Code(s): 545889480 Code(s): K56.50 - INTESTNL ADHESIONS, UNSP TO PARTIAL VERSUS COMPLETE OBST Status: Acute Current Visit: Yes (2) Acute kidney injury SNOMED Code(s): 41799843, 82981675 Code(s): N17.9 - ACUTE KIDNEY FAILURE, UNSPECIFIED Status: Acute Current Visit: Yes (3) Schizophrenia SNOMED Code(s): 70183762 Code(s): F20.9 - SCHIZOPHRENIA, UNSPECIFIED Status: Chronic Current Visit : No Qualifiers: Schizophrenia type: unspecified Qualified Code(s): F20.9 - Schizophrenia, unspecified (4) Hypothyroid SNOMED Code(s): 67349174 Code(s): E03.9 - HYPOTHYROIDISM, UNSPECIFIED Status: Chronic Current Visit: No Qualifiers: Hypothyroidism type: acquired Qualified Code(s): E03.9 - Hypothyroidism, unspecified (5) HTN (hypertension) SNOMED Code(s): 43047961 Code(s): I10 - ESSENTIAL (PRIMARY) HYPERTENSION Status: Chronic Current Visit: No Qualifiers: Hypertension type: essential hypertension Qualified Code(s): I10 - Essential (primary) hypertension - Problem List Review Problem List Initiated/Reviewed/Updated: Yes - My Orders Last 24 Hours: My Active Orders 03/25/19 10:00 Scopolamine [Transderm-Scop] 1.5 mg TRDERM Q72H 03/26/19 09:00 Non-Formulary Medication [NF Drug] 1 each TOP DAILY 03/26/19 09:15 Atropine Sulfate [Atropine 1%] 4 ml SL BID Furosemide [Lasix] 20 mg IVPUSH Q8H 03/26/19 12:00 Metoprolol Tartrate [Lopressor] 2.5 mg IV Q6H 03/27/19 05:00 CXR [Chest 1V Frontal] [CR] DAILY - Plan Plan:: ASSESSMENT AND PLAN - Acute respiratory failure with hypoxia and hypercapnia - secondary to aspiration with vomiting 03/18. Chest x-ray stable. Respiratory status is in good shape but significant barrier to extubation because of copious secretions. Still mild evidence for volume overload. -Trial of scheduled atropine drops -Continue scopolamine patch -Continue current ventilator settings -Mucomyst nebulizers -Diuresis -Vigorous pulmonary toilet -Daily breathing trials Small bowel obstruction with pneumatosis - status post emergent laparotomy with small bowel resection and right colectomy 03/08. Abdomen not distended. He is having bowel movements. -Postoperative care per surgical team -He is receiving TPN -Pain control -discontinue azithromycin with current diarrhea Type 2 diabetes mellitus - blood sugar levels have remained in goal range. -Continue glucometers every 6 hours -Continue insulin in the TPN -High dose sliding scale Humalog Hypokalemia - potassium level normal today. -Recheck in the morning Severe schizophrenia - patient is very debilitated because of his psychiatric illness. -Continue low-dose Haldol -Continue regular dose Depakote -low dose lorazepam -Restart oral medications when able Acute kidney injury - resolved -Continue to closely monitor urine output and renal function Maintenance issues - - DVT prophylaxis - mechanical - GI prophylaxis - IV PPI - Nutrition - nothing by mouth, currently receiving TPN for nutritional support - Rodriguez catheter - placed for strict intake and output monitoring with a critical patient Disposition - anticipate discharge home versus more likely the [facility]. the patient's hospital stay has been greatly prolonged by multiple unforeseen complications including prolonged return of bowel function postoperatively, aspiration leading to respiratory failure and reintubation. Farhan Nj M.D.
[2019-03-26] MEDS: Levothyroxine 100 MCG Vial IVPUSH SCH (09:10)
[2019-03-26] MEDS: Furosemide 20 MG/2 ML VIAL IVPUSH SCH ×2 (09:14→17:34)
[2019-03-26] MEDS: Atropine Sulfate Ophth 2 ML Drops SL SCH ×2 (09:47→21:23)
--- NOTE | 2019-03-26 10:03 | PN ---
DATE OF SERVICE: 03/26/2019 SUBJECTIVE: Tuan remains on the ventilator, has had an increased amount of thick sputum, TPN is running. Radha were removed yesterday, and he has been having bowel movements. OBJECTIVE: GENERAL: Tuan Perez is a 58-year-old male resting comfortably on the ventilator. VITAL SIGNS: TPR 98.8, 81, 18, blood pressure 102/46. HEART: Regular rate and rhythm. LUNGS: Decreased breath sounds. ABDOMEN: Abdominal binder is on. EXTREMITIES: Trace edema. ASSESSMENT: 1. Exploratory laparotomy, lysis of extensive adhesions for: a. Small bowel obstruction. b. Resection of portion of adherent abdominal wall including peritoneal fascial and muscle. c. Partial resection of portion of transverse colon. d. Enterotomy for tube decompression of small bowel. e. Drainage of pelvic abscess. f. Placement of Interceed mesh to limit recurrent adhesion formation between pelvic and abdominal wall. Date of surgery 03/10/2019. Surgeon, Haider Monae MD. 2. Delayed primary closure on 03/12/2019. Surgeon, Haider Monae MD. 3. Vent TPN therapy, aspiration and on vent for respiratory distress. PLAN: 1. Continue same TPN rate and content. 2. Check CBC, CMP, mag, and phos in a.m. 3. We will evaluate p.r.n. or in a.m. Syl Galindo PA-C /[id number]
[2019-03-26] MEDS: 1: AA 5%/Calcium/D15W/Lytes 1,000 ML with MVI, Adult with Vitamin K 10 ML, Chromium/Copp IV SCH ×3 (11:19)
[2019-03-26] MEDS: Pantoprazole 40 MG Vial IV SCH (17:32)
[2019-03-26] MEDS: Latanoprost 0.005% Ophth Soln 2.5 ML Bottle EYEBOTH SCH (21:25)
[2019-03-27] MEDS: 1: AA 5%/Calcium/D15W/Lytes 1,000 ML with MVI, Adult with Vitamin K 10 ML, Chromium/Copp IV SCH ×6 (00:05→12:26)
[2019-03-27] MEDS: Metoprolol Tartrate 5 MG/5 ML SDV IV SCH ×4 (00:41→17:58)
[2019-03-27] MEDS: Furosemide 20 MG/2 ML VIAL IVPUSH SCH ×3 (02:23→18:01)
--- NOTE | 2019-03-27 05:28 | CRLCR ---
INDICATION: Follow-up infiltrates and intubation. TECHNIQUE: Chest 1 views COMPARISON: Chest x-ray 03/26/2019 FINDINGS: Cardiovascular and mediastinum: Cardiomegaly with endotracheal tube with the distal trachea. Orogastric tube within the fundus of the stomach. Right subclavian line within the right atrium. Lungs and pleural spaces: Small bilateral pleural effusions with pulmonary cephalization and bilateral airspace opacities in the mid to lower lungs. Bones and soft tissues: No significant findings. IMPRESSION: Cardiomegaly with pulmonary cephalization, bilateral pleural effusions and bilateral airspace opacities. Compared to the study 1 day prior, airspace opacities have mildly worsened. Dictated by Jame Morales MD @ Mar 27 2019 5:26AM Signed by Dr. Jame Morales @ Mar 27 2019 5:28AM
[2019-03-27] MEDS: Sodium Chloride 5% Ophth Soln 15 ML Bottle EYEBOTH SCH ×4 (05:49→22:41)
[2019-03-27] MEDS: Acetylcysteine 20% 200 MG/ML 4 ML Nebulizer Soln SDV NEB SCH (07:06)
[2019-03-27] MEDS: Albuterol/Ipratropium 3.0-0.5 MG/3 ML Neb Soln INH SCH ×4 (07:06→20:50)
[2019-03-27] MEDS: LORazepam 2 MG/ML SDV IVPUSH SCH ×2 (08:37→20:49)
[2019-03-27] MEDS: Docusate Sodium 100 MG Cap PO SCH ×2 (08:40→20:50)
[2019-03-27] MEDS: Insulin Glargine,Human Rec. Analog 100 Units/ML 3 ML Pen SUBCUT SCH ×2 (08:54→20:50)
[2019-03-27] MEDS: Atropine Sulfate Ophth 2 ML Drops SL SCH ×2 (08:57→20:49)
[2019-03-27] MEDS: Levothyroxine 100 MCG Vial IVPUSH SCH (08:59)
[2019-03-27] MEDS: Haloperidol Lactate 5 MG/ML SDV IVPUSH SCH ×2 (09:04→20:50)
--- NOTE | 2019-03-27 09:19 | PCM.PN ---
- General Info Date of Service: 03/27/19 Subjective Update: No acute events overnight. He did better with his weaning trial this morning after some diuresis yesterday. Chest x-ray appeared improved with less effusion on the right. Still some pulmonary congestion. Still a fair amount of secretions. He has been stable on 35% FiO2. He was extubated this morning. Didn' t tolerate the NIPPV very well because of agitation/anxiety but doing fairly well on nasal cannula. He is mildly tachypneic. Vital signs otherwise stable. Potassium level normal. He continues to have bowel movements. Functional Status: Reports: Pain Controlled - Review of Systems General: Denies: Fever - Patient Data Vitals - Most Recent: Last Vital Signs Temp 36.7 C 03/27/19 07:00 Pulse 105 H 03/27/19 07:59 Resp 31 H 03/27/19 07:59 BP 134/59 L 03/27/19 07:59 Pulse Ox 95 03/27/19 08:02 Weight - Most Recent: 75.4 kg I&O - Last 24 Hours: Intake & Output 03/26/19 03/27/19 03/27/19 22:59 06:59 14:59 Intake Total 1620 1711 Output Total 340 2275 Balance 1280 -564 Lab Results Last 24 Hours: Laboratory Results - last 24 hr 03/27/19 03/27/19 03/27/19 Range/Units 04:15 04:15 04:15 WBC 7.2 (4.5-11.0) K/uL RBC 3.18 L (4.30-5.90) M/uL Hgb 9.2 L (12.0-15.0) g/dL Hct 30.5 L (40.0-54.0) % MCV 96 (80-98) fL MCH 29 (27-31) pg MCHC 30 L (32-36) % Plt Count 435 H (150-400) K/uL Puncture Site Line ABG pH 7.488 H (7.350-7.450) ABG pCO2 36.8 (35.0-42.0) mmHg ABG pO2 70.7 L (75.0-100.0) mmHg ABG HCO3 27.6 H (22.0-26.0) mmol/L ABG Total CO2 25.5 (23.0-27.0) mmol/L ABG O2 Saturation 94.5 L (95.0-98.0) % ABG O2 Content 12.2 L (15.0-23.0) %vol ABG Base Excess 4.4 mm/L ABG Hemoglobin 9.4 L (13.5-18.0) g/dL ABG Oxyhemoglobin 91.9 % ABG Carboxyhemoglobin 2.2 H (0.0-1.6) % ABG Methemoglobin 0.5 % O2 Delivery Device Ventilator Oxygen Flow Rate L Sodium 146 (140-148) mmol/L Potassium 3.8 (3.6-5.2) mmol/L Chloride 108 (100-108) mmol/L Carbon Dioxide 29 (21-32) mmol/L Anion Gap 9.5 (5.0-14.0) mmol/L BUN 34 H (7-18) mg/dL Creatinine 1.0 (0.8-1.3) mg/dL Est Cr Clr Drug Dosing 67.42 mL/min Estimated GFR (MDRD) > 60 (>60) Glucose 147 H (74-106) mg/dL Calcium 8.6 (8.5-10.1) mg/dL Phosphorus 4.5 (2.5-4.9) mg/dL Magnesium 1.9 (1.8-2.4) mg/dL Total Bilirubin 0.3 (0.2-1.0) mg/dL AST 12 L (15-37) U/L ALT 20 (12-78) U/L Alkaline Phosphatase 174 H (46-116) U/L NT-Pro-B Natriuret Pep 243 H (5-125) pg/mL Total Protein 6.1 L (6.4-8.2) g/dL Albumin 2.6 L (3.4-5.0) g/dL Globulin 3.5 (2.3-3.5) g/dL Albumin/Globulin Ratio 0.7 L (1.2-2.2) Med Orders - Current: Current Medications Albuterol (Proventil Neb Soln) 2.5 mg NEB Q4H PRN PRN Reason: Shortness Of Breath/wheezing Last Admin: 03/10/19 00:24 Dose: 2.5 mg Albuterol/Ipratropium (Duoneb 3.0-0.5 Mg/3 Ml) 3 ml INH QIDRT [facility] Last Admin: 03/27/19 07:06 Dose: 3 ml Atropine Sulfate (Atropine 1%) 0 ml SL BID [facility] Last Admin: 03/27/19 08:57 Dose: 4 drop Dextrose (Glutose 15) 15 gm PO ASDIRECTED PRN PRN Reason: HYPOGLYCEMIA Dextrose/Water (Dextrose 50% In Water) 50 ml IVPUSH ASDIRECTED PRN PRN Reason: HYPOGLYCEMIA Dimethicone/Zinc Oxide (Rash Relief-Zinc Oxide [place]) 0 gm TOP ASDIRECTED PRN PRN Reason: Perineal Comfort Measure Last Admin: 03/26/19 08:07 Dose: 4 spray Diphenhydramine HCl (Benadryl) 25 mg IVPUSH Q4H PRN PRN Reason: Itching Last Admin: 03/18/19 03:20 Dose: 25 mg Docusate Sodium (Colace) 100 mg PO BID [facility] Last Admin: 03/27/19 08:40 Dose: Not Given Furosemide (Lasix) 20 mg IVPUSH Q8H [facility] Last Admin: 03/27/19 02:23 Dose: 20 mg Glucagon (Glucagen) 1 mg IM ASDIRECTED PRN PRN Reason: HYPOGLYCEMIA Haloperidol Lactate (Haldol) 2 mg IVPUSH Q4H PRN PRN Reason: Agitation Last Admin: 03/18/19 21:57 Dose: 2 mg Haloperidol Lactate (Haldol) 2.5 mg IVPUSH BID [facility] Last Admin: 03/27/19 09:04 Dose: 2.5 mg Heparin Sodium (Porcine) (Heparin Lock Flush 100 Units/Ml) 500 units FLUSH ASDIRECTED PRN PRN Reason: Keep Vein Open Last Admin: 03/20/19 06:39 Dose: 500 units Valproic Acid 500 mg/ Sodium (Chloride) 55 mls @ 55 mls/hr IV Q8H [facility] Last Admin: 03/27/19 05:49 Dose: 55 mls/hr Heparin Sodium (Porcine) 5,000 (units/ Sodium Chloride) 501 mls @ 0.1 mls/hr IV ASDIRECTED [facility] Last Admin: 03/24/19 13:26 Dose: 1 units/hr, 0.1 mls/hr Sodium Chloride (Normal Saline) 1,000 mls @ 20 mls/hr IV ASDIRECTED [facility] Last Admin: 03/19/19 08:13 Dose: 125 mls/hr Multivitamins/Minerals 10 ml/Chromium/Copper/Manganese/Seleni/Zn 1 ml/ Amino Ac/ Electrol/Dextrose/Calcium 1,011 mls @ 82 mls/hr IV .BY DURATION [facility] Last Admin: 03/27/19 00:05 Dose: 82 mls/hr Amino Ac/Electrol/Dextrose/Calcium (Clinimix E 5/15) 1,000 mls @ 82 mls/hr IV .BY DURATION [facility] Last Admin: 03/26/19 11:19 Dose: 82 mls/hr Fat Emulsion Intravenous (Intralipid 20%) 100 mls @ 8.3 mls/hr IV Q48H [facility] Insulin Glargine (Lantus Solostar) 12 units SUBCUT BID [facility] Last Admin: 03/27/19 08:54 Dose: 12 units Insulin Human Lispro (Humalog) 0 unit SUBCUT ASDIRECTED [facility]; Protocol Last Admin: 03/23/19 15:11 Dose: 3 units Latanoprost (Xalatan 0.005% Ophth Soln) 0 ml EYEBOTH BEDTIME [facility] Last Admin: 03/26/19 21:25 Dose: 1 drop Levothyroxine Sodium (Synthroid) 100 mcg IVPUSH DAILY [facility] Last Admin: 03/27/19 08:59 Dose: 100 mcg Lorazepam (Ativan) 0.5 mg IVPUSH Q4H PRN PRN Reason: Anxiety Last Admin: 03/26/19 01:39 Dose: 0.5 mg Lorazepam (Ativan) 0.5 mg IVPUSH BID [facility] Last Admin: 03/27/19 08:37 Dose: 0.5 mg Metoprolol Tartrate (Lopressor) 2.5 mg IV Q6H [facility] Last Admin: 03/27/19 05:49 Dose: 2.5 mg Naloxone HCl (Narcan) 0.1 mg IV ASDIRECTED PRN PRN Reason: decreased respiratory rate Scopolamine Patch (Check) 1 each TOP DAILY [facility] Last Admin: 03/26/19 08:07 Dose: 1 each Ondansetron HCl (Zofran) 4 mg IVPUSH Q4H PRN PRN Reason: Nausea/Vomiting Last Admin: 03/18/19 17:31 Dose: 4 mg Pantoprazole Sodium (Protonix Iv) 40 mg IV Q24H [facility] Last Admin: 03/26/19 17:32 Dose: 40 mg Scopolamine (Transderm-Scop) 1.5 mg TRDERM Q72H [facility] Last Admin: 03/25/19 10:51 Dose: 1.5 mg Sodium Chloride (Joseph 128 5% Ophth Soln) 0 ml EYEBOTH QID [facility] Last Admin: 03/27/19 05:49 Dose: 1 drop Discontinued Medications Acetylcysteine (Mucomyst 20%) 400 mg INH BIDRT [facility] Last Admin: 03/12/19 07:48 Dose: 200 mg Acetylcysteine (Mucomyst 20%) 200 mg INH BIDRT [facility] Stop: 03/12/19 23:59 Last Admin: 03/12/19 20:44 Dose: 200 mg Acetylcysteine (Mucomyst 20%) 200 mg NEB BIDRT [facility] Last Admin: 03/27/19 07:06 Dose: 200 mg Bisacodyl (Dulcolax) 10 mg PO BID [facility] Last Admin: 03/17/19 20:35 Dose: Not Given Bisacodyl (Dulcolax) 10 mg RECTAL ONETIME ONE Stop: 03/17/19 17:01 Last Admin: 03/17/19 17:10 Dose: 10 mg Bupivacaine HCl (Marcaine 0.5%) Confirm Administered Dose 50 ml .ROUTE .STK-MED ONE Stop: 03/10/19 06:23 Bupivacaine HCl (Marcaine 0.5%) Confirm Administered Dose 50 ml .ROUTE .STK-MED ONE Stop: 03/11/19 07:19 Last Admin: 03/11/19 07:28 Dose: 15 ml Ropivacaine 36 ml/Dexamethasone 8 mg/Epinephrine HCl 0.4 mg/ Sodium Chloride 41.6 ml 0 ml NERVRT ASDIRECTED [facility] Last Admin: 03/08/19 15:05 Dose: 80 syringe Ropivacaine 36 ml/Dexamethasone 8 mg/Epinephrine HCl 0.4 mg/ Sodium Chloride 41.6 ml 0 ml NERVRT ASDIRECTED [facility] Last Admin: 03/11/19 07:41 Dose: 80 syringe Dexamethasone (Dexamethasone) Confirm Administered Dose 4 mg .ROUTE .STK-MED ONE Stop: 03/08/19 12:18 Diphenhydramine HCl (Benadryl) 25 mg IVPUSH Q6H PRN PRN Reason: Itching Diphenhydramine HCl (Benadryl) 25 mg PO Q6H PRN PRN Reason: Itching Fentanyl (Sublimaze) Confirm Administered Dose 250 mcg .ROUTE .STK-MED ONE Stop: 03/08/19 12:19 Furosemide (Lasix) 20 mg IVPUSH ONETIME ONE Stop: 03/09/19 21:56 Last Admin: 03/09/19 22:10 Dose: 20 mg Furosemide (Lasix) Confirm Administered Dose 20 mg .ROUTE .STK-MED ONE Stop: 03/09/19 22:05 Last Admin: 03/09/19 22:10 Dose: Not Given Furosemide (Lasix) 20 mg IVPUSH ONETIME ONE Stop: 03/10/19 06:33 Last Admin: 03/10/19 07:20 Dose: 20 mg Furosemide (Lasix) 20 mg IVPUSH ONETIME ONE Stop: 03/12/19 18:01 Last Admin: 03/12/19 17:43 Dose: 20 mg Furosemide (Lasix) 20 mg IVPUSH ONETIME ONE Stop: 03/12/19 07:31 Last Admin: 03/12/19 07:44 Dose: 20 mg Furosemide (Lasix) 10 mg IVPUSH Q12H [facility] Stop: 03/13/19 21:01 Last Admin: 03/13/19 20:29 Dose: 10 mg Furosemide (Lasix) 20 mg IVPUSH NOW ONE Stop: 03/15/19 11:31 Last Admin: 03/15/19 11:38 Dose: 20 mg Furosemide (Lasix) 20 mg IVPUSH ONETIME ONE Stop: 03/16/19 13:31 Last Admin: 03/16/19 14:18 Dose: 20 mg Furosemide (Lasix) 20 mg IVPUSH NOW ONE Stop: 03/17/19 09:16 Last Admin: 03/17/19 09:47 Dose: 20 mg Furosemide (Lasix) 20 mg IVPUSH Q12H [facility] Stop: 03/22/19 21:31 Last Admin: 03/22/19 22:10 Dose: 20 mg Furosemide (Lasix) 20 mg IVPUSH Q12H [facility] Stop: 03/23/19 22:01 Last Admin: 03/23/19 22:47 Dose: 20 mg Furosemide (Lasix) 20 mg IVPUSH Q8H [facility] Stop: 03/25/19 02:01 Last Admin: 03/25/19 02:11 Dose: 20 mg Furosemide (Lasix) 20 mg IVPUSH Q12H [facility] Last Admin: 03/25/19 21:32 Dose: 20 mg Glycopyrrolate (Robinul) Confirm Administered Dose 1 mg .ROUTE .STK-MED ONE Stop: 03/08/19 12:18 Haloperidol Lactate (Haldol) 5 mg IVPUSH BID [facility] Last Admin: 03/09/19 09:06 Dose: 5 mg Heparin Sodium (Porcine) (Heparin Sodium) Confirm Administered Dose 5,000 units .ROUTE .STK-MED ONE Stop: 03/10/19 07:04 Last Admin: 03/10/19 07:57 Dose: Not Given Heparin Sodium (Porcine) (Heparin Lock Flush 100 Units/Ml) Confirm Administered Dose 1,000 units .ROUTE .STK-MED ONE Stop: 03/11/19 07:32 Last Admin: 03/11/19 08:31 Dose: Not Given Heparin Sodium (Porcine) (Heparin Sodium) Confirm Administered Dose 5,000 units .ROUTE .STK-MED ONE Stop: 03/18/19 23:03 Last Admin: 03/19/19 02:36 Dose: Not Given Hydromorphone HCl (Dilaudid Dance Historian 15 Mg In Ns 30 Ml) 0 mg IV ASDIRECTED PRN; Protocol PRN Reason: PAIN Last Admin: 03/16/19 16:43 Dose: 15 mg Sodium Chloride (Normal Saline) 1,000 mls @ 1,000 mls/hr IV ASDIRECTED [facility] Last Admin: 03/08/19 10:02 Dose: 1,000 mls/hr Ampicillin Sodium/Sulbactam (Sodium 1.5 gm/ Sodium Chloride) 50 mls @ 100 mls/ hr IV Q6H [facility] Last Admin: 03/08/19 13:30 Dose: 100 mls/hr Aztreonam 1 gm/ Sodium (Chloride) 50 mls @ 100 mls/hr IV Q12H [facility] Last Admin: 03/08/19 13:30 Dose: 100 mls/hr Lactated Ringer's (Ringers, Lactated) 1,000 mls @ 150 mls/hr IV ASDIRECTED [facility] Last Admin: 03/08/19 13:31 Dose: 150 mls/hr Lactated Ringer's (Ringers, Lactated) Confirm Administered Dose 1,000 mls @ as directed .ROUTE .STK-MED ONE Stop: 03/08/19 15:16 Lactated Ringer's (Ringers, Lactated) 1,000 mls @ 100 mls/hr IV ASDIRECTED [facility] Last Admin: 03/09/19 03:26 Dose: 100 mls/hr Dextrose/Lactated Ringer's (Dextrose 5%-Lactated Ringers) 1,000 mls @ 100 mls/ hr IV ASDIRECTED [facility] Stop: 03/12/19 11:59 Last Admin: 03/11/19 23:35 Dose: 100 mls/hr Ampicillin Sodium/Sulbactam (Sodium 3 gm/ Sodium Chloride) 100 mls @ 200 mls/ hr IV Q6H [facility] Last Admin: 03/13/19 05:19 Dose: 200 mls/hr Aztreonam 1 gm/ Sodium (Chloride) 50 mls @ 100 mls/hr IV Q8H [facility] Last Admin: 03/13/19 04:23 Dose: 100 mls/hr Potassium Chloride 20 meq/Lidocaine HCl 2 ml/ Sodium Chloride 112 mls @ 56 mls/ hr IV Q2H [facility] Stop: 03/09/19 15:59 Last Admin: 03/09/19 17:30 Dose: 56 mls/hr Lactated Ringer's (Ringers, Lactated) 750 mls @ 750 mls/hr IV BOLUS ONE Stop: 03/09/19 16:25 Last Admin: 03/09/19 15:53 Dose: 750 mls/hr Lactated Ringer's (Ringers, Lactated) 750 mls @ 999 mls/hr IV BOLUS ONE Stop: 03/09/19 21:15 Last Admin: 03/09/19 21:08 Dose: 999 mls/hr Heparin Sodium (Porcine) 5,000 (units/ Sodium Chloride) 501 mls @ 5 mls/hr IV ASDIRECTED [facility] Last Admin: 03/12/19 13:58 Dose: 5 mls/hr Propofol (Diprivan 100 Ml) 100 mls @ 2.191 mls/hr IV TITRATE [facility]; Protocol Last Titration: 03/15/19 07:18 Dose: 0 mcg/kg/min, 0 mls/hr Linezolid 600 mg/ Premix 300 mls @ 300 mls/hr IV Q12H [facility] Last Admin: 03/11/19 21:53 Dose: 300 mls/hr Potassium Chloride 20 meq/Lidocaine HCl 2 ml/ Sodium Chloride 112 mls @ 56 mls/ hr IV Q2H [facility] Stop: 03/10/19 16:29 Last Admin: 03/10/19 16:07 Dose: 56 mls/hr Potassium Chloride 20 meq/ (Premix) 0 mls @ 50 mls/hr IV Q2H [facility] Stop: 03/11/19 07:28 Last Admin: 03/11/19 07:32 Dose: 50 mls/hr Magnesium Sulfate 2 gm/ Premix 50 mls @ 25 mls/hr IV Q6H [facility] Last Admin: 03/12/19 04:27 Dose: 25 mls/hr Potassium Phosphate 20 mmole/ (Sodium Chloride) 256.6667 mls @ 85 mls/hr IV Q3H [facility] Stop: 03/11/19 17:59 Last Admin: 03/11/19 14:42 Dose: 85 mls/hr Multivitamins/Minerals 10 ml/Chromium/Copper/Manganese/Seleni/Zn 1 ml/ Amino Ac/ Electrol/Dextrose/Calcium 1,011 mls @ 82 mls/hr IV .BY DURATION [facility] Last Admin: 03/13/19 12:34 Dose: 82 mls/hr Amino Ac/Electrol/Dextrose/Calcium (Clinimix E 15) 1,000 mls @ 82 mls/hr IV .BY DURATION [facility] Last Admin: 03/14/19 01:20 Dose: 82 mls/hr Sodium Chloride (Normal Saline) 1,000 mls @ 20 mls/hr IV ASDIRECTED [facility] Last Admin: 03/13/19 22:58 Dose: 20 mls/hr Potassium Phosphate 20 mmole/ (Sodium Chloride) 256.6667 mls @ 85.556 mls/hr IV Q3H [facility] Stop: 03/12/19 16:59 Last Admin: 03/12/19 14:49 Dose: 85.556 mls/hr Potassium Chloride 20 meq/ (Premix) 100 mls @ 50 mls/hr IV ONETIME ONE Stop: 03/13/19 10:59 Last Admin: 03/13/19 09:29 Dose: 50 mls/hr Potassium Phosphate 30 mmole/ (Sodium Chloride) 110 mls @ 30 mls/hr IV ONETIME ONE Stop: 03/13/19 14:39 Last Admin: 03/13/19 12:14 Dose: 30 mls/hr Linezolid 600 mg/ Premix 300 mls @ 300 mls/hr IV Q12H [facility] Last Admin: 03/20/19 09:52 Dose: 300 mls/hr Magnesium Sulfate 2 gm/ Premix 50 mls @ 25 mls/hr IV Q6H [facility] Stop: 03/16/19 03:59 Last Admin: 03/16/19 01:59 Dose: 25 mls/hr Azithromycin 250 mg/ Sodium (Chloride) 150 mls @ 150 mls/hr IV Q12H [facility] Azithromycin 250 mg/ Sodium (Chloride) 150 mls @ 150 mls/hr IV Q24H [facility] Last Admin: 03/17/19 11:28 Dose: 150 mls/hr Multivitamins/Minerals 10 ml/Chromium/Copper/Manganese/Seleni/Zn 1 ml/ Amino Ac/ Electrol/Dextrose/Calcium 1,011 mls @ 82 mls/hr IV .BY DURATION [facility] Stop: 03/18/19 14:59 Last Admin: 03/17/19 14:26 Dose: 82 mls/hr Amino Ac/Electrol/Dextrose/Calcium (Clinimix E 5/15) 1,000 mls @ 82 mls/hr IV .BY DURATION [facility] Stop: 03/18/19 14:59 Last Admin: 03/18/19 03:38 Dose: 82 mls/hr Multivitamins/Minerals 10 ml/Chromium/Copper/Manganese/Seleni/Zn 1 ml/ Amino Ac/ Electrol/Dextrose/Calcium 1,011 mls @ 80 mls/hr IV .BY DURATION [facility] Last Admin: 03/18/19 16:05 Dose: 40 mls/hr Amino Ac/Electrol/Dextrose/Calcium (Clinimix E 5/15) 1,000 mls @ 40 mls/hr IV .BY DURATION [facility] Piperacillin Sod/Tazobactam (Sod 3.375 gm/ Sodium Chloride) 50 mls @ 100 mls/ hr IV Q6H [facility] Last Admin: 03/19/19 04:17 Dose: 100 mls/hr Sodium Chloride (Normal Saline) Confirm Administered Dose 50 mls @ as directed .ROUTE .STK-MED ONE Stop: 03/18/19 21:35 Last Admin: 03/18/19 21:40 Dose: Not Given Propofol (Diprivan 100 Ml) Confirm Administered Dose 100 mls @ as directed .ROUTE .STK-MED ONE Stop: 03/18/19 23:04 Last Admin: 03/19/19 01:04 Dose: Not Given Propofol (Diprivan 100 Ml) 100 mls @ 2.195 mls/hr IV TITRATE [facility]; Protocol Last Admin: 03/27/19 06:14 Dose: 40 mcg/kg/min, 17.559 mls/hr Sodium Chloride (Normal Saline) 500 mls @ 999 mls/hr IV .BOLUS ONE Stop: 03/19/19 00:00 Last Admin: 03/19/19 00:00 Dose: 999 mls/hr Sodium Chloride (Normal Saline) 100 mls @ 4 mls/sec IV ASDIRECTED [facility] Stop: 03/19/19 10:00 Last Admin: 03/19/19 07:45 Dose: 4 mls/sec Multivitamins/Minerals 10 ml/Chromium/Copper/Manganese/Seleni/Zn 1 ml/ Amino Ac/ Electrol/Dextrose/Calcium 1,011 mls @ 80 mls/hr IV .BY DURATION [facility] Stop: 03/19/19 20:00 Amino Ac/Electrol/Dextrose/Calcium (Clinimix E 5/15) 1,000 mls @ 80 mls/hr IV .BY DURATION [facility] Stop: 03/19/19 20:00 Last Admin: 03/19/19 08:12 Dose: 80 mls/hr Piperacillin/Tazobactam/ (Dextrose 3.375 gm/ Premix) 50 mls @ 100 mls/hr IV Q6H [facility] Last Admin: 03/25/19 09:29 Dose: 100 mls/hr Multivitamins/Minerals 10 ml/Chromium/Copper/Manganese/Seleni/Zn 1 ml/ Amino Ac/ Electrol/Dextrose/Calcium 1,011 mls @ 82 mls/hr IV .BY DURATION [facility] Stop: 03/23/19 20:00 Last Admin: 03/22/19 21:45 Dose: 82 mls/hr Amino Ac/Electrol/Dextrose/Calcium (Clinimix E 5/15) 1,000 mls @ 82 mls/hr IV .BY DURATION [facility] Stop: 03/23/19 20:00 Last Admin: 03/23/19 11:17 Dose: Not Given Albumin Human (Albumin 25%) 25 gm in 100 mls @ 25 mls/hr IV Q24H [facility] Stop: 03/23/19 11:59 Last Admin: 03/23/19 08:20 Dose: 25 mls/hr Albumin Human (Albumin 25%) 25 gm in 100 mls @ 25 mls/hr IV Q24H [facility] Stop: 03/23/19 15:59 Last Admin: 03/23/19 11:22 Dose: 25 mls/hr Azithromycin 250 mg/ Sodium (Chloride) 150 mls @ 150 mls/hr IV Q24H [facility] Last Admin: 03/24/19 11:55 Dose: 150 mls/hr Potassium Chloride 20 meq/ (Premix) 100 mls @ 50 mls/hr IV ONETIME ONE Stop: 03/21/19 10:59 Last Admin: 03/21/19 09:29 Dose: 50 mls/hr Potassium Chloride 40 meq/ (Premix) 100 mls @ 25 mls/hr IV ONETIME ONE Stop: 03/22/19 13:59 Last Admin: 03/22/19 10:01 Dose: 25 mls/hr Magnesium Sulfate 2 gm/ Premix 50 mls @ 25 mls/hr IV Q6H [facility] Stop: 03/26/19 03:59 Last Admin: 03/24/19 08:07 Dose: 25 mls/hr Potassium Chloride 40 meq/ (Premix) 100 mls @ 25 mls/hr IV ONETIME ONE Stop: 03/23/19 13:59 Last Admin: 03/23/19 09:22 Dose: 25 mls/hr Potassium Chloride 40 meq/ (Premix) 100 mls @ 25 mls/hr IV ONETIME ONE Stop: 03/24/19 13:59 Last Admin: 03/24/19 09:54 Dose: 25 mls/hr Potassium Chloride 40 meq/ (Premix) 100 mls @ 25 mls/hr IV ONETIME ONE Stop: 03/25/19 13:59 Last Admin: 03/25/19 10:32 Dose: 25 mls/hr Insulin Glargine (Lantus Solostar) 10 units SUBCUT BID [facility] Last Admin: 03/16/19 09:27 Dose: 10 unit Insulin Glargine (Lantus Solostar) 14 units SUBCUT BID [facility] Last Admin: 03/18/19 09:06 Dose: 14 units Insulin Glargine (Lantus Solostar) 7 units SUBCUT BID [facility] Stop: 03/18/19 21:01 Last Admin: 03/18/19 21:25 Dose: Not Given Insulin Human Lispro (Humalog) 0 unit SUBCUT Q6H PRN; Protocol PRN Reason: MEDIUM CORRECTIONAL DOSING Last Admin: 03/14/19 17:42 Dose: 7 units Insulin Human Lispro (Humalog) 15 unit SUBCUT ONETIME ONE Stop: 03/14/19 12:05 Last Admin: 03/14/19 12:10 Dose: 15 units Insulin Human Lispro (Humalog) 0 unit SUBCUT ONETIME ONE Stop: 03/15/19 00:16 Last Admin: 03/15/19 00:25 Dose: 12 units Iopamidol (Isovue-370 (76%)) 100 ml IV . DIRECTED [facility] Stop: 03/19/19 10:00 Last Admin: 03/19/19 07:45 Dose: 100 ml Lidocaine HCl (Xylocaine-Mpf 1%) 5 ml INJECT ONETIME ONE Stop: 03/11/19 05:30 Last Admin: 03/11/19 05:39 Dose: 2 ml Lidocaine/Epinephrine (Xylocaine 1% With Epinephrine 1:100,000) Confirm Administered Dose 50 ml .ROUTE .STK-MED ONE Stop: 03/10/19 06:23 Lidocaine/Epinephrine (Xylocaine 1% With Epinephrine 1:100,000) Confirm Administered Dose 50 ml .ROUTE .STK-MED ONE Stop: 03/11/19 07:19 Last Admin: 03/11/19 07:28 Dose: 15 ml Linezolid (Zyvox) 600 mg IRR .STK-MED ONE Stop: 03/11/19 07:39 Last Admin: 03/11/19 07:38 Dose: 600 mg Lorazepam (Ativan) 0.5 mg IVPUSH BID [facility] Last Admin: 03/09/19 09:09 Dose: 0.5 mg Lorazepam (Ativan) 0.25 mg IVPUSH BID [facility] Last Admin: 03/10/19 09:09 Dose: 0.25 mg Meropenem (Merrem) Confirm Administered Dose 500 mg .ROUTE .STK-MED ONE Stop: 03/08/19 12:05 Last Admin: 03/08/19 14:00 Dose: 500 mg Meropenem (Merrem) Confirm Administered Dose 500 mg .ROUTE .STK-MED ONE Stop: 03/10/19 06:23 Meropenem (Merrem) Confirm Administered Dose 500 mg .ROUTE .STK-MED ONE Stop: 03/11/19 06:45 Last Admin: 03/11/19 07:38 Dose: 500 mg Methylprednisolone Sodium Succinate (Solu-Medrol) 40 mg IVPUSH Q6H [facility] Last Admin: 03/20/19 09:50 Dose: 40 mg Metoprolol Tartrate (Lopressor) 5 mg IV Q6H [facility] Last Admin: 03/26/19 07:56 Dose: Not Given Neostigmine Methylsulfate (Neostigmine) Confirm Administered Dose 5 mg .ROUTE .STK-MED ONE Stop: 03/08/19 12:18 Non-Formulary Medication (Total Parenteral Nutrition, Central) 1,000 ml .XX .Continue Order [facility] Stop: 03/22/19 12:00 Non-Formulary Medication (Total Parenteral Nutrition, Central) 1,000 ml .XX .Continue Order [facility] Stop: 03/23/19 12:00 Non-Formulary Medication (Total Parenteral Nutrition, Central) 1,000 ml .XX .Continue Order [facility] Stop: 03/24/19 15:00 Non-Formulary Medication (Total Parenteral Nutrition, Central) 1,000 ml .XX .Continue Order [facility] Stop: 03/26/19 12:00 Ondansetron HCl (Zofran) Confirm Administered Dose 4 mg .ROUTE .STK-MED ONE Stop: 03/08/19 12:18 Ondansetron HCl (Zofran) 4 mg IVPUSH Q6H PRN PRN Reason: Nausea/Vomiting Piperacillin Sod/Tazobactam Sod (Zosyn) Confirm Administered Dose 3.375 gm .ROUTE .STK-MED ONE Stop: 03/18/19 21:34 Last Admin: 03/18/19 21:40 Dose: Not Given Propofol (Diprivan 20 Ml) Confirm Administered Dose 200 mg .ROUTE .STK-MED ONE Stop: 03/08/19 12:18 Propofol (Diprivan 20 Ml) Confirm Administered Dose 200 mg .ROUTE .STK-MED ONE Stop: 03/10/19 07:33 Rocuronium [place] (Zemuron) Confirm Administered Dose 50 mg .ROUTE .STK-MED ONE Stop: 03/08/19 12:18 Succinylcholine Chloride (Quelicin) Confirm Administered Dose 200 mg .ROUTE .STK -MED ONE Stop: 03/08/19 12:18 Succinylcholine Chloride (Quelicin) Confirm Administered Dose 200 mg .ROUTE .[facility] -MED ONE Stop: 03/10/19 07:33 - Exam Quality Assessment: Supplemental Oxygen, Central Line/PICC, Urine Catheter, Restraints General: Alert, Cooperative, Mild Distress Lungs: Clear to Auscultation, Normal Respiratory Effort, Decreased Breath Sounds (mild right lung base) Cardiovascular: Regular Rhythm, Tachycardia GI/Abdominal Exam: Soft, Non-Tender, No Distention, Abnormal Bowel Sounds ( hypoactive) Extremities: Pedal Edema (mild both feet ), Increased Warmth Skin: Warm, Dry Psy/Mental Status: Alert, Anxious - Problem List & Annotations (1) Small bowel obstruction due to adhesions SNOMED Code(s): 372315606 Code(s): K56.50 - INTESTNL ADHESIONS, UNSP TO PARTIAL VERSUS COMPLETE OBST Status: Acute Current Visit: Yes (2) Acute kidney injury SNOMED Code(s): 05679243, 58595757 Code(s): N17.9 - ACUTE KIDNEY FAILURE, UNSPECIFIED Status: Acute Current Visit: Yes (3) Schizophrenia SNOMED Code(s): 86353090 Code(s): F20.9 - SCHIZOPHRENIA, UNSPECIFIED Status: Chronic Current Visit : No Qualifiers: Schizophrenia type: unspecified Qualified Code(s): F20.9 - Schizophrenia, unspecified (4) Hypothyroid SNOMED Code(s): 75489210 Code(s): E03.9 - HYPOTHYROIDISM, UNSPECIFIED Status: Chronic Current Visit: No Qualifiers: Hypothyroidism type: acquired Qualified Code(s): E03.9 - Hypothyroidism, unspecified (5) HTN (hypertension) SNOMED Code(s): 81336911 Code(s): I10 - ESSENTIAL (PRIMARY) HYPERTENSION Status: Chronic Current Visit: No Qualifiers: Hypertension type: essential hypertension Qualified Code(s): I10 - Essential (primary) hypertension - Problem List Review Problem List Initiated/Reviewed/Updated: Yes - My Orders Last 24 Hours: My Active Orders 08/31/19 09:00 Non-Formulary Medication [NF Drug] 1 each TOP DAILY 03/26/19 09:15 Atropine Sulfate [Atropine 1%] 0 ml SL BID 03/26/19 10:00 Furosemide [Lasix] 20 mg IVPUSH Q8H 03/26/19 10:33 Pressure Reduction Mattress [OM.PC] Routine 03/26/19 12:00 Metoprolol Tartrate [Lopressor] 2.5 mg IV Q6H - Plan Plan:: ASSESSMENT AND PLAN - Acute respiratory failure with hypoxia and hypercapnia - secondary to aspiration with vomiting 03/18. Chest x-ray stable. Still a fair amount of secretions but he was extubated this morning. Stable so far. -Trial of scheduled atropine drops -Continue scopolamine patch -Supplement oxygen, consider NIPPV if needed -Diuresis -Vigorous pulmonary toilet -Daily breathing trials Small bowel obstruction with pneumatosis - status post emergent laparotomy with small bowel resection and right colectomy 03/08. Abdomen not distended. He is having bowel movements. -Postoperative care per surgical team -He is receiving TPN -Pain control Type 2 diabetes mellitus - blood sugar levels have remained in goal range. -Continue glucometers every 6 hours -Continue insulin in the TPN -High dose sliding scale Humalog Hypokalemia - potassium level normal today. -Recheck in the morning Severe schizophrenia - patient is very debilitated because of his psychiatric illness. Now that he is extubated hopefully we can get his regular medications on board in the near future. -Continue low-dose Haldol -Continue regular dose Depakote -low dose lorazepam -Restart oral medications when able Acute kidney injury - resolved -Continue to closely monitor urine output and renal function Maintenance issues - - DVT prophylaxis - mechanical - GI prophylaxis - IV PPI - Nutrition - nothing by mouth, currently receiving TPN for nutritional support. We may try some liquids and medications later in the day - Rodriguez catheter - placed for strict intake and output monitoring with a critical patient Disposition - anticipate discharge home versus more likely the shelter. the patient's hospital stay has been greatly prolonged by multiple unforeseen complications including prolonged return of bowel function postoperatively, aspiration leading to respiratory failure and reintubation. Farhan Nj M.D.
[2019-03-27] MEDS: LORazepam 2 MG/ML SDV IVPUSH PRN ×7 (10:07→19:27)
[2019-03-27] MEDS: SCOPOLAMINE PATCH CHECK TOP SCH (10:14)
[2019-03-27] MEDS: Heparin Sodium 5,000 UNITS in Sodium Chloride 0.9% 500 ML IV SCH (15:35)
[2019-03-27] MEDS: Fat Emulsion 100 ML IV SCH (15:45)
[2019-03-27] MEDS: Haloperidol Lactate 5 MG/ML SDV IVPUSH PRN (16:15)
[2019-03-27] MEDS: Morphine 2 MG/ML Syringe IVPUSH PRN ×3 (17:10→22:40)
[2019-03-27] MEDS: Pantoprazole 40 MG Vial IV SCH (18:03)
[2019-03-27] MEDS: Latanoprost 0.005% Ophth Soln 2.5 ML Bottle EYEBOTH SCH (20:41)
[2019-03-28] MEDS ORDERED: Racepinephrine 2.25% 0.5 ML Neb Soln NEB PRN (00:07)
[2019-03-28] MEDS ORDERED: Sodium Chloride 0.9% Inhalation Soln 3 ML Neb INH PRN (00:07)
[2019-03-28] MEDS: Metoprolol Tartrate 5 MG/5 ML SDV IV SCH ×5 (00:26→23:44)
[2019-03-28] MEDS: 1: AA 5%/Calcium/D15W/Lytes 1,000 ML with MVI, Adult with Vitamin K 10 ML, Chromium/Copp IV SCH ×6 (01:02→12:27)
[2019-03-28] MEDS: Furosemide 20 MG/2 ML VIAL IVPUSH SCH ×2 (02:11→09:14)
[2019-03-28] MEDS: Morphine 2 MG/ML Syringe IVPUSH PRN ×2 (03:05→14:04)
[2019-03-28] MEDS: Sodium Chloride 5% Ophth Soln 15 ML Bottle EYEBOTH SCH ×4 (05:23→21:47)
[2019-03-28] MEDS: Albuterol/Ipratropium 3.0-0.5 MG/3 ML Neb Soln INH SCH ×4 (07:25→21:15)
[2019-03-28] MEDS: Magnesium Sulfate/Water 2 GM in Premix Bag 1 BAG IV SCH ×3 (07:52→19:50)
[2019-03-28] MEDS: LORazepam 2 MG/ML SDV IVPUSH SCH ×2 (08:33→21:05)
[2019-03-28] MEDS: Atropine Sulfate Ophth 2 ML Drops SL SCH ×2 (08:36→21:01)
[2019-03-28] MEDS: Docusate Sodium 100 MG Cap PO SCH ×2 (08:39→21:15)
[2019-03-28] MEDS: Haloperidol Lactate 5 MG/ML SDV IVPUSH SCH ×2 (08:40→21:02)
[2019-03-28] MEDS: Insulin Glargine,Human Rec. Analog 100 Units/ML 3 ML Pen SUBCUT SCH ×2 (08:44→21:12)
[2019-03-28] MEDS: SCOPOLAMINE PATCH CHECK TOP SCH (08:46)
[2019-03-28] MEDS: Levothyroxine 100 MCG Vial IVPUSH SCH (08:46)
--- NOTE | 2019-03-28 09:59 | PCM.PN ---
- General Info Date of Service: 03/28/19 Subjective Update: Mr. Perez is been stable since yesterday, tolerating extubation without significant difficulty as far. He does continue to require assistance with management of secretions and frequent suctioning. He appeared to have intermittent episodes of laryngeal spasm with stridor. Episodes have been well managed with use of racemic epinephrine nebs. He is not communicating regularly since extubation, unable to provide meaningful history concerning symptoms or review of systems. - Patient Data Vitals - Most Recent: Last Vital Signs Temp 98.5 F 03/28/19 08:00 Pulse 104 H 03/28/19 07:26 Resp 18 03/28/19 08:00 BP 158/77 H 03/28/19 08:00 Pulse Ox 93 L 03/28/19 08:00 Weight - Most Recent: 166 lb 3.657 oz I&O - Last 24 Hours: Intake & Output 03/27/19 03/28/19 03/28/19 22:59 06:59 14:59 Intake Total 1175 1287 Output Total 395 2450 Balance 780 -1163 Lab Results Last 24 Hours: Laboratory Results - last 24 hr 03/28/19 03/28/19 Range/Units 04:27 04:27 WBC 8.7 (4.5-11.0) K/uL RBC 3.39 L (4.30-5.90) M/uL Hgb 9.8 L (12.0-15.0) g/dL Hct 32.2 L (40.0-54.0) % MCV 95 (80-98) fL MCH 29 (27-31) pg MCHC 30 L (32-36) % Plt Count 461 H (150-400) K/uL Sodium 145 (140-148) mmol/L Potassium 4.0 (3.6-5.2) mmol/L Chloride 107 (100-108) mmol/L Carbon Dioxide 31 (21-32) mmol/L Anion Gap 7.2 (5.0-14.0) mmol/L BUN 33 H (7-18) mg/dL Creatinine 1.0 (0.8-1.3) mg/dL Est Cr Clr Drug Dosing 67.42 mL/min Estimated GFR (MDRD) > 60 (>60) Glucose 153 H (74-106) mg/dL Calcium 8.9 (8.5-10.1) mg/dL Phosphorus 4.1 (2.5-4.9) mg/dL Magnesium 1.7 L (1.8-2.4) mg/dL Total Bilirubin 0.4 (0.2-1.0) mg/dL AST 11 L (15-37) U/L ALT 18 (12-78) U/L Alkaline Phosphatase 203 H (46-116) U/L Total Protein 6.6 (6.4-8.2) g/dL Albumin 2.8 L (3.4-5.0) g/dL Globulin 3.8 H (2.3-3.5) g/dL Albumin/Globulin Ratio 0.7 L (1.2-2.2) Med Orders - Current: Current Medications Albuterol (Proventil Neb Soln) 2.5 mg NEB Q4H PRN PRN Reason: Shortness Of Breath/wheezing Last Admin: 03/10/19 00:24 Dose: 2.5 mg Albuterol/Ipratropium (Duoneb 3.0-0.5 Mg/3 Ml) 3 ml INH QIDRT [facility] Last Admin: 03/28/19 07:25 Dose: 3 ml Atropine Sulfate (Atropine 1%) 0 ml SL BID [facility] Last Admin: 03/28/19 08:36 Dose: 4 drop Dextrose (Glutose 15) 15 gm PO ASDIRECTED PRN PRN Reason: HYPOGLYCEMIA Dextrose/Water (Dextrose 50% In Water) 50 ml IVPUSH ASDIRECTED PRN PRN Reason: HYPOGLYCEMIA Dimethicone/Zinc Oxide (Rash Relief-Zinc Oxide [place]) 0 gm TOP ASDIRECTED PRN PRN Reason: Perineal Comfort Measure Last Admin: 03/26/19 08:07 Dose: 4 spray Diphenhydramine HCl (Benadryl) 25 mg IVPUSH Q4H PRN PRN Reason: Itching Last Admin: 03/18/19 03:20 Dose: 25 mg Docusate Sodium (Colace) 100 mg PO BID [facility] Last Admin: 03/28/19 08:39 Dose: Not Given Furosemide (Lasix) 20 mg IVPUSH Q12H [facility] Glucagon (Glucagen) 1 mg IM ASDIRECTED PRN PRN Reason: HYPOGLYCEMIA Haloperidol Lactate (Haldol) 2 mg IVPUSH Q4H PRN PRN Reason: Agitation Last Admin: 03/27/19 16:15 Dose: 2 mg Haloperidol Lactate (Haldol) 2.5 mg IVPUSH BID [facility] Last Admin: 03/28/19 08:40 Dose: 2.5 mg Heparin Sodium (Porcine) (Heparin Lock Flush 100 Units/Ml) 500 units FLUSH ASDIRECTED PRN PRN Reason: Keep Vein Open Last Admin: 03/27/19 10:27 Dose: 500 units Valproic Acid 500 mg/ Sodium (Chloride) 55 mls @ 55 mls/hr IV Q8H [facility] Last Admin: 03/28/19 05:15 Dose: 55 mls/hr Heparin Sodium (Porcine) 5,000 (units/ Sodium Chloride) 501 mls @ 0.1 mls/hr IV ASDIRECTED [facility] Last Admin: 03/27/19 15:35 Dose: 1 units/hr, 0.1 mls/hr Sodium Chloride (Normal Saline) 1,000 mls @ 20 mls/hr IV ASDIRECTED [facility] Last Admin: 03/19/19 08:13 Dose: 125 mls/hr Multivitamins/Minerals 10 ml/Chromium/Copper/Manganese/Seleni/Zn 1 ml/ Amino Ac/ Electrol/Dextrose/Calcium 1,011 mls @ 82 mls/hr IV .BY DURATION [facility] Last Admin: 03/28/19 01:02 Dose: 82 mls/hr Amino Ac/Electrol/Dextrose/Calcium (Clinimix E 15) 1,000 mls @ 82 mls/hr IV .BY DURATION [facility] Last Admin: 03/27/19 12:26 Dose: 82 mls/hr Fat Emulsion Intravenous (Intralipid 20%) 100 mls @ 8.3 mls/hr IV Q48H [facility] Last Admin: 03/27/19 15:45 Dose: 8.3 mls/hr Magnesium Sulfate 2 gm/ Premix 50 mls @ 25 mls/hr IV Q6H [facility] Stop: 03/30/19 03:59 Last Admin: 03/28/19 07:52 Dose: 25 mls/hr Insulin Glargine (Lantus Solostar) 12 units SUBCUT BID [facility] Last Admin: 03/28/19 08:44 Dose: 12 units Insulin Human Lispro (Humalog) 0 unit SUBCUT ASDIRECTED [facility]; Protocol Last Admin: 03/23/19 15:11 Dose: 3 units Latanoprost (Xalatan 0.005% Ophth Soln) 0 ml EYEBOTH BEDTIME [facility] Last Admin: 03/27/19 20:41 Dose: 1 drop Levothyroxine Sodium (Synthroid) 100 mcg IVPUSH DAILY [facility] Last Admin: 03/28/19 08:46 Dose: 100 mcg Lorazepam (Ativan) 0.5 mg IVPUSH BID [facility] Last Admin: 03/28/19 08:33 Dose: 0.5 mg Lorazepam (Ativan) 1 mg IVPUSH Q1H PRN PRN Reason: Anxiety Last Admin: 03/27/19 19:27 Dose: 1 mg Metoprolol Tartrate (Lopressor) 2.5 mg IV Q6H [facility] Last Admin: 03/28/19 05:22 Dose: 2.5 mg Morphine Sulfate (Morphine) 2 mg IVPUSH Q1H PRN PRN Reason: Other Last Admin: 03/28/19 03:05 Dose: 2 mg Naloxone HCl (Narcan) 0.1 mg IV ASDIRECTED PRN PRN Reason: decreased respiratory rate Scopolamine Patch (Check) 1 each TOP DAILY [facility] Last Admin: 03/28/19 08:46 Dose: Not Given Ondansetron HCl (Zofran) 4 mg IVPUSH Q4H PRN PRN Reason: Nausea/Vomiting Last Admin: 03/18/19 17:31 Dose: 4 mg Pantoprazole Sodium (Protonix Iv) 40 mg IV Q24H [facility] Last Admin: 03/27/19 18:03 Dose: 40 mg Racepinephrine (S-2 2.25%) 0.5 ml NEB Q2H PRN PRN Reason: Shortness of Breath Last Admin: 03/28/19 00:32 Dose: 0.5 ml Scopolamine (Transderm-Scop) 1.5 mg TRDERM Q72H [facility] Last Admin: 03/25/19 10:51 Dose: 1.5 mg Sodium Chloride (Joseph 128 5% Ophth Soln) 0 ml EYEBOTH QID [facility] Last Admin: 03/28/19 09:15 Dose: 1 drop Sodium Chloride (Sodium Chloride 0.9%) 3 ml INH ASDIRECTED PRN PRN Reason: mix with racepinephrine neb Last Admin: 03/28/19 00:35 Dose: 3 ml Discontinued Medications Acetylcysteine (Mucomyst 20%) 400 mg INH BIDRT [facility] Last Admin: 03/12/19 07:48 Dose: 200 mg Acetylcysteine (Mucomyst 20%) 200 mg INH BIDRT [facility] Stop: 03/12/19 23:59 Last Admin: 03/12/19 20:44 Dose: 200 mg Acetylcysteine (Mucomyst 20%) 200 mg NEB BIDRT [facility] Last Admin: 03/27/19 07:06 Dose: 200 mg Bisacodyl (Dulcolax) 10 mg PO BID [facility] Last Admin: 03/17/19 20:35 Dose: Not Given Bisacodyl (Dulcolax) 10 mg RECTAL ONETIME ONE Stop: 03/17/19 17:01 Last Admin: 03/17/19 17:10 Dose: 10 mg Bupivacaine HCl (Marcaine 0.5%) Confirm Administered Dose 50 ml .ROUTE .STK-MED ONE Stop: 03/10/19 06:23 Bupivacaine HCl (Marcaine 0.5%) Confirm Administered Dose 50 ml .ROUTE .STK-MED ONE Stop: 03/11/19 07:19 Last Admin: 03/11/19 07:28 Dose: 15 ml Ropivacaine 36 ml/Dexamethasone 8 mg/Epinephrine HCl 0.4 mg/ Sodium Chloride 41.6 ml 0 ml NERVRT ASDIRECTED [facility] Last Admin: 03/08/19 15:05 Dose: 80 syringe Ropivacaine 36 ml/Dexamethasone 8 mg/Epinephrine HCl 0.4 mg/ Sodium Chloride 41.6 ml 0 ml NERVRT ASDIRECTED [facility] Last Admin: 03/11/19 07:41 Dose: 80 syringe Dexamethasone (Dexamethasone) Confirm Administered Dose 4 mg .ROUTE .STK-MED ONE Stop: 03/08/19 12:18 Diphenhydramine HCl (Benadryl) 25 mg IVPUSH Q6H PRN PRN Reason: Itching Diphenhydramine HCl (Benadryl) 25 mg PO Q6H PRN PRN Reason: Itching Fentanyl (Sublimaze) Confirm Administered Dose 250 mcg .ROUTE .STK-MED ONE Stop: 03/08/19 12:19 Furosemide (Lasix) 20 mg IVPUSH ONETIME ONE Stop: 03/09/19 21:56 Last Admin: 03/09/19 22:10 Dose: 20 mg Furosemide (Lasix) Confirm Administered Dose 20 mg .ROUTE .STK-MED ONE Stop: 03/09/19 22:05 Last Admin: 03/09/19 22:10 Dose: Not Given Furosemide (Lasix) 20 mg IVPUSH ONETIME ONE Stop: 03/10/19 06:33 Last Admin: 03/10/19 07:20 Dose: 20 mg Furosemide (Lasix) 20 mg IVPUSH ONETIME ONE Stop: 03/12/19 18:01 Last Admin: 03/12/19 17:43 Dose: 20 mg Furosemide (Lasix) 20 mg IVPUSH ONETIME ONE Stop: 03/12/19 07:31 Last Admin: 03/12/19 07:44 Dose: 20 mg Furosemide (Lasix) 10 mg IVPUSH Q12H [facility] Stop: 03/13/19 21:01 Last Admin: 03/13/19 20:29 Dose: 10 mg Furosemide (Lasix) 20 mg IVPUSH NOW ONE Stop: 03/15/19 11:31 Last Admin: 03/15/19 11:38 Dose: 20 mg Furosemide (Lasix) 20 mg IVPUSH ONETIME ONE Stop: 03/16/19 13:31 Last Admin: 03/16/19 14:18 Dose: 20 mg Furosemide (Lasix) 20 mg IVPUSH NOW ONE Stop: 03/17/19 09:16 Last Admin: 03/17/19 09:47 Dose: 20 mg Furosemide (Lasix) 20 mg IVPUSH Q12H [facility] Stop: 03/22/19 21:31 Last Admin: 03/22/19 22:10 Dose: 20 mg Furosemide (Lasix) 20 mg IVPUSH Q12H [facility] Stop: 03/23/19 22:01 Last Admin: 03/23/19 22:47 Dose: 20 mg Furosemide (Lasix) 20 mg IVPUSH Q8H [facility] Stop: 03/25/19 02:01 Last Admin: 03/25/19 02:11 Dose: 20 mg Furosemide (Lasix) 20 mg IVPUSH Q12H [facility] Last Admin: 03/25/19 21:32 Dose: 20 mg Furosemide (Lasix) 20 mg IVPUSH Q8H [facility] Last Admin: 03/28/19 09:14 Dose: 20 mg Glycopyrrolate (Robinul) Confirm Administered Dose 1 mg .ROUTE .STK-MED ONE Stop: 03/08/19 12:18 Haloperidol Lactate (Haldol) 5 mg IVPUSH BID [facility] Last Admin: 03/09/19 09:06 Dose: 5 mg Heparin Sodium (Porcine) (Heparin Sodium) Confirm Administered Dose 5,000 units .ROUTE .[facility] ONE Stop: 03/10/19 07:04 Last Admin: 03/10/19 07:57 Dose: Not Given Heparin Sodium (Porcine) (Heparin Lock Flush 100 Units/Ml) Confirm Administered Dose 1,000 units .ROUTE .[facility] ONE Stop: 03/11/19 07:32 Last Admin: 03/11/19 08:31 Dose: Not Given Heparin Sodium (Porcine) (Heparin Sodium) Confirm Administered Dose 5,000 units .ROUTE .[facility] ONE Stop: 03/18/19 23:03 Last Admin: 03/19/19 02:36 Dose: Not Given Hydromorphone HCl (Dilaudid [facility] 15 Mg In Ns 30 Ml) 0 mg IV ASDIRECTED PRN; Protocol PRN Reason: PAIN Last Admin: 03/16/19 16:43 Dose: 15 mg Sodium Chloride (Normal Saline) 1,000 mls @ 1,000 mls/hr IV ASDIRECTED [facility] Last Admin: 03/08/19 10:02 Dose: 1,000 mls/hr Ampicillin Sodium/Sulbactam (Sodium 1.5 gm/ Sodium Chloride) 50 mls @ 100 mls/ hr IV Q6H [facility] Last Admin: 03/08/19 13:30 Dose: 100 mls/hr Aztreonam 1 gm/ Sodium (Chloride) 50 mls @ 100 mls/hr IV Q12H [facility] Last Admin: 03/08/19 13:30 Dose: 100 mls/hr Lactated Ringer's (Ringers, Lactated) 1,000 mls @ 150 mls/hr IV ASDIRECTED [facility] Last Admin: 03/08/19 13:31 Dose: 150 mls/hr Lactated Ringer's (Ringers, Lactated) Confirm Administered Dose 1,000 mls @ as directed .ROUTE .[facility] ONE Stop: 03/08/19 15:16 Lactated Ringer's (Ringers, Lactated) 1,000 mls @ 100 mls/hr IV ASDIRECTED [facility] Last Admin: 03/09/19 03:26 Dose: 100 mls/hr Dextrose/Lactated Ringer's (Dextrose 5%-Lactated Ringers) 1,000 mls @ 100 mls/ hr IV ASDIRECTED [facility] Stop: 03/12/19 11:59 Last Admin: 03/11/19 23:35 Dose: 100 mls/hr Ampicillin Sodium/Sulbactam (Sodium 3 gm/ Sodium Chloride) 100 mls @ 200 mls/ hr IV Q6H [facility] Last Admin: 03/13/19 05:19 Dose: 200 mls/hr Aztreonam 1 gm/ Sodium (Chloride) 50 mls @ 100 mls/hr IV Q8H [facility] Last Admin: 03/13/19 04:23 Dose: 100 mls/hr Potassium Chloride 20 meq/Lidocaine HCl 2 ml/ Sodium Chloride 112 mls @ 56 mls/ hr IV Q2H [facility] Stop: 03/09/19 15:59 Last Admin: 03/09/19 17:30 Dose: 56 mls/hr Lactated Ringer's (Ringers, Lactated) 750 mls @ 750 mls/hr IV BOLUS ONE Stop: 03/09/19 16:25 Last Admin: 03/09/19 15:53 Dose: 750 mls/hr Lactated Ringer's (Ringers, Lactated) 750 mls @ 999 mls/hr IV BOLUS ONE Stop: 03/09/19 21:15 Last Admin: 03/09/19 21:08 Dose: 999 mls/hr Heparin Sodium (Porcine) 5,000 (units/ Sodium Chloride) 501 mls @ 5 mls/hr IV ASDIRECTED [facility] Last Admin: 03/12/19 13:58 Dose: 5 mls/hr Propofol (Diprivan 100 Ml) 100 mls @ 2.191 mls/hr IV TITRATE [facility]; Protocol Last Titration: 03/15/19 07:18 Dose: 0 mcg/kg/min, 0 mls/hr Linezolid 600 mg/ Premix 300 mls @ 300 mls/hr IV Q12H [facility] Last Admin: 03/11/19 21:53 Dose: 300 mls/hr Potassium Chloride 20 meq/Lidocaine HCl 2 ml/ Sodium Chloride 112 mls @ 56 mls/ hr IV Q2H [facility] Stop: 03/10/19 16:29 Last Admin: 03/10/19 16:07 Dose: 56 mls/hr Potassium Chloride 20 meq/ (Premix) 0 mls @ 50 mls/hr IV Q2H [facility] Stop: 03/11/19 07:28 Last Admin: 03/11/19 07:32 Dose: 50 mls/hr Magnesium Sulfate 2 gm/ Premix 50 mls @ 25 mls/hr IV Q6H [facility] Last Admin: 03/12/19 04:27 Dose: 25 mls/hr Potassium Phosphate 20 mmole/ (Sodium Chloride) 256.6667 mls @ 85 mls/hr IV Q3H [facility] Stop: 03/11/19 17:59 Last Admin: 03/11/19 14:42 Dose: 85 mls/hr Multivitamins/Minerals 10 ml/Chromium/Copper/Manganese/Seleni/Zn 1 ml/ Amino Ac/ Electrol/Dextrose/Calcium 1,011 mls @ 82 mls/hr IV .BY DURATION [facility] Last Admin: 03/13/19 12:34 Dose: 82 mls/hr Amino Ac/Electrol/Dextrose/Calcium (Clinimix E 5/15) 1,000 mls @ 82 mls/hr IV .BY DURATION [facility] Last Admin: 03/14/19 01:20 Dose: 82 mls/hr Sodium Chloride (Normal Saline) 1,000 mls @ 20 mls/hr IV ASDIRECTED [facility] Last Admin: 03/13/19 22:58 Dose: 20 mls/hr Potassium Phosphate 20 mmole/ (Sodium Chloride) 256.6667 mls @ 85.556 mls/hr IV Q3H [facility] Stop: 03/12/19 16:59 Last Admin: 03/12/19 14:49 Dose: 85.556 mls/hr Potassium Chloride 20 meq/ (Premix) 100 mls @ 50 mls/hr IV ONETIME ONE Stop: 03/13/19 10:59 Last Admin: 03/13/19 09:29 Dose: 50 mls/hr Potassium Phosphate 30 mmole/ (Sodium Chloride) 110 mls @ 30 mls/hr IV ONETIME ONE Stop: 03/13/19 14:39 Last Admin: 03/13/19 12:14 Dose: 30 mls/hr Linezolid 600 mg/ Premix 300 mls @ 300 mls/hr IV Q12H [facility] Last Admin: 03/20/19 09:52 Dose: 300 mls/hr Magnesium Sulfate 2 gm/ Premix 50 mls @ 25 mls/hr IV Q6H [facility] Stop: 03/16/19 03:59 Last Admin: 03/16/19 01:59 Dose: 25 mls/hr Azithromycin 250 mg/ Sodium (Chloride) 150 mls @ 150 mls/hr IV Q12H [facility] Azithromycin 250 mg/ Sodium (Chloride) 150 mls @ 150 mls/hr IV Q24H [facility] Last Admin: 03/17/19 11:28 Dose: 150 mls/hr Multivitamins/Minerals 10 ml/Chromium/Copper/Manganese/Seleni/Zn 1 ml/ Amino Ac/ Electrol/Dextrose/Calcium 1,011 mls @ 82 mls/hr IV .BY DURATION [facility] Stop: 03/18/19 14:59 Last Admin: 03/17/19 14:26 Dose: 82 mls/hr Amino Ac/Electrol/Dextrose/Calcium (Clinimix E 5/15) 1,000 mls @ 82 mls/hr IV .BY DURATION [facility] Stop: 03/18/19 14:59 Last Admin: 03/18/19 03:38 Dose: 82 mls/hr Multivitamins/Minerals 10 ml/Chromium/Copper/Manganese/Seleni/Zn 1 ml/ Amino Ac/ Electrol/Dextrose/Calcium 1,011 mls @ 80 mls/hr IV .BY DURATION [facility] Last Admin: 03/18/19 16:05 Dose: 40 mls/hr Amino Ac/Electrol/Dextrose/Calcium (Clinimix E 5/15) 1,000 mls @ 40 mls/hr IV .BY DURATION [facility] Piperacillin Sod/Tazobactam (Sod 3.375 gm/ Sodium Chloride) 50 mls @ 100 mls/ hr IV Q6H [facility] Last Admin: 03/19/19 04:17 Dose: 100 mls/hr Sodium Chloride (Normal Saline) Confirm Administered Dose 50 mls @ as directed .ROUTE .STK-MED ONE Stop: 03/18/19 21:35 Last Admin: 03/18/19 21:40 Dose: Not Given Propofol (Diprivan 100 Ml) Confirm Administered Dose 100 mls @ as directed .ROUTE .STK-MED ONE Stop: 03/18/19 23:04 Last Admin: 03/19/19 01:04 Dose: Not Given Propofol (Diprivan 100 Ml) 100 mls @ 2.195 mls/hr IV TITRATE [facility]; Protocol Last Titration: 03/27/19 07:00 Dose: 0 mcg/kg/min, 0 mls/hr Sodium Chloride (Normal Saline) 500 mls @ 999 mls/hr IV .BOLUS ONE Stop: 03/19/19 00:00 Last Admin: 03/19/19 00:00 Dose: 999 mls/hr Sodium Chloride (Normal Saline) 100 mls @ 4 mls/sec IV ASDIRECTED [facility] Stop: 03/19/19 10:00 Last Admin: 03/19/19 07:45 Dose: 4 mls/sec Multivitamins/Minerals 10 ml/Chromium/Copper/Manganese/Seleni/Zn 1 ml/ Amino Ac/ Electrol/Dextrose/Calcium 1,011 mls @ 80 mls/hr IV .BY DURATION [facility] Stop: 03/19/19 20:00 Amino Ac/Electrol/Dextrose/Calcium (Clinimix E 5/15) 1,000 mls @ 80 mls/hr IV .BY DURATION [facility] Stop: 03/19/19 20:00 Last Admin: 03/19/19 08:12 Dose: 80 mls/hr Piperacillin/Tazobactam/ (Dextrose 3.375 gm/ Premix) 50 mls @ 100 mls/hr IV Q6H [facility] Last Admin: 03/25/19 09:29 Dose: 100 mls/hr Multivitamins/Minerals 10 ml/Chromium/Copper/Manganese/Seleni/Zn 1 ml/ Amino Ac/ Electrol/Dextrose/Calcium 1,011 mls @ 82 mls/hr IV .BY DURATION [facility] Stop: 03/23/19 20:00 Last Admin: 03/22/19 21:45 Dose: 82 mls/hr Amino Ac/Electrol/Dextrose/Calcium (Clinimix E 5/15) 1,000 mls @ 82 mls/hr IV .BY DURATION [facility] Stop: 03/23/19 20:00 Last Admin: 03/23/19 11:17 Dose: Not Given Albumin Human (Albumin 25%) 25 gm in 100 mls @ 25 mls/hr IV Q24H [facility] Stop: 03/23/19 11:59 Last Admin: 03/23/19 08:20 Dose: 25 mls/hr Albumin Human (Albumin 25%) 25 gm in 100 mls @ 25 mls/hr IV Q24H [facility] Stop: 03/23/19 15:59 Last Admin: 03/23/19 11:22 Dose: 25 mls/hr Azithromycin 250 mg/ Sodium (Chloride) 150 mls @ 150 mls/hr IV Q24H [facility] Last Admin: 03/24/19 11:55 Dose: 150 mls/hr Potassium Chloride 20 meq/ (Premix) 100 mls @ 50 mls/hr IV ONETIME ONE Stop: 03/21/19 10:59 Last Admin: 03/21/19 09:29 Dose: 50 mls/hr Potassium Chloride 40 meq/ (Premix) 100 mls @ 25 mls/hr IV ONETIME ONE Stop: 03/22/19 13:59 Last Admin: 03/22/19 10:01 Dose: 25 mls/hr Magnesium Sulfate 2 gm/ Premix 50 mls @ 25 mls/hr IV Q6H [facility] Stop: 03/26/19 03:59 Last Admin: 03/24/19 08:07 Dose: 25 mls/hr Potassium Chloride 40 meq/ (Premix) 100 mls @ 25 mls/hr IV ONETIME ONE Stop: 03/23/19 13:59 Last Admin: 03/23/19 09:22 Dose: 25 mls/hr Potassium Chloride 40 meq/ (Premix) 100 mls @ 25 mls/hr IV ONETIME ONE Stop: 03/24/19 13:59 Last Admin: 03/24/19 09:54 Dose: 25 mls/hr Potassium Chloride 40 meq/ (Premix) 100 mls @ 25 mls/hr IV ONETIME ONE Stop: 03/25/19 13:59 Last Admin: 03/25/19 10:32 Dose: 25 mls/hr Insulin Glargine (Lantus Solostar) 10 units SUBCUT BID [facility] Last Admin: 03/16/19 09:27 Dose: 10 unit Insulin Glargine (Lantus Solostar) 14 units SUBCUT BID [facility] Last Admin: 03/18/19 09:06 Dose: 14 units Insulin Glargine (Lantus Solostar) 7 units SUBCUT BID [facility] Stop: 03/18/19 21:01 Last Admin: 03/18/19 21:25 Dose: Not Given Insulin Human Lispro (Humalog) 0 unit SUBCUT Q6H PRN; Protocol PRN Reason: MEDIUM CORRECTIONAL DOSING Last Admin: 03/14/19 17:42 Dose: 7 units Insulin Human Lispro (Humalog) 15 unit SUBCUT ONETIME ONE Stop: 03/14/19 12:05 Last Admin: 03/14/19 12:10 Dose: 15 units Insulin Human Lispro (Humalog) 0 unit SUBCUT ONETIME ONE Stop: 03/15/19 00:16 Last Admin: 03/15/19 00:25 Dose: 12 units Iopamidol (Isovue-370 (76%)) 100 ml IV . DIRECTED [facility] Stop: 03/19/19 10:00 Last Admin: 03/19/19 07:45 Dose: 100 ml Lidocaine HCl (Xylocaine-Mpf 1%) 5 ml INJECT ONETIME ONE Stop: 03/11/19 05:30 Last Admin: 03/11/19 05:39 Dose: 2 ml Lidocaine/Epinephrine (Xylocaine 1% With Epinephrine 1:100,000) Confirm Administered Dose 50 ml .ROUTE .STK-MED ONE Stop: 03/10/19 06:23 Lidocaine/Epinephrine (Xylocaine 1% With Epinephrine 1:100,000) Confirm Administered Dose 50 ml .ROUTE .STK-MED ONE Stop: 03/11/19 07:19 Last Admin: 03/11/19 07:28 Dose: 15 ml Linezolid (Zyvox) 600 mg IRR .STK-MED ONE Stop: 03/11/19 07:39 Last Admin: 03/11/19 07:38 Dose: 600 mg Lorazepam (Ativan) 0.5 mg IVPUSH BID [facility] Last Admin: 03/09/19 09:09 Dose: 0.5 mg Lorazepam (Ativan) 0.5 mg IVPUSH Q4H PRN PRN Reason: Anxiety Last Admin: 03/27/19 10:07 Dose: 0.5 mg Lorazepam (Ativan) 0.25 mg IVPUSH BID [facility] Last Admin: 03/10/19 09:09 Dose: 0.25 mg Meropenem (Merrem) Confirm Administered Dose 500 mg .ROUTE .STK-MED ONE Stop: 03/08/19 12:05 Last Admin: 03/08/19 14:00 Dose: 500 mg Meropenem (Merrem) Confirm Administered Dose 500 mg .ROUTE .STK-MED ONE Stop: 03/10/19 06:23 Meropenem (Merrem) Confirm Administered Dose 500 mg .ROUTE .STK-MED ONE Stop: 03/11/19 06:45 Last Admin: 03/11/19 07:38 Dose: 500 mg Methylprednisolone Sodium Succinate (Solu-Medrol) 40 mg IVPUSH Q6H [facility] Last Admin: 03/20/19 09:50 Dose: 40 mg Metoprolol Tartrate (Lopressor) 5 mg IV Q6H [facility] Last Admin: 03/26/19 07:56 Dose: Not Given Neostigmine Methylsulfate (Neostigmine) Confirm Administered Dose 5 mg .ROUTE .STK-MED ONE Stop: 03/08/19 12:18 Non-Formulary Medication (Total Parenteral Nutrition, Central) 1,000 ml .XX .Continue Order [facility] Stop: 03/22/19 12:00 Non-Formulary Medication (Total Parenteral Nutrition, Central) 1,000 ml .XX .Continue Order [facility] Stop: 03/23/19 12:00 Non-Formulary Medication (Total Parenteral Nutrition, Central) 1,000 ml .XX .Continue Order [facility] Stop: 03/24/19 15:00 Non-Formulary Medication (Total Parenteral Nutrition, Central) 1,000 ml .XX .Continue Order [facility] Stop: 03/26/19 12:00 Ondansetron HCl (Zofran) Confirm Administered Dose 4 mg .ROUTE .STK-MED ONE Stop: 03/08/19 12:18 Ondansetron HCl (Zofran) 4 mg IVPUSH Q6H PRN PRN Reason: Nausea/Vomiting Piperacillin Sod/Tazobactam Sod (Zosyn) Confirm Administered Dose 3.375 gm .ROUTE .STK-MED ONE Stop: 03/18/19 21:34 Last Admin: 03/18/19 21:40 Dose: Not Given Propofol (Diprivan 20 Ml) Confirm Administered Dose 200 mg .ROUTE .STK-MED ONE Stop: 03/08/19 12:18 Propofol (Diprivan 20 Ml) Confirm Administered Dose 200 mg .ROUTE .STK-MED ONE Stop: 03/10/19 07:33 Rocuronium Caroleen (Zemuron) Confirm Administered Dose 50 mg .ROUTE .STK-MED ONE Stop: 03/08/19 12:18 Succinylcholine Chloride (Quelicin) Confirm Administered Dose 200 mg .ROUTE .STK -MED ONE Stop: 03/08/19 12:18 Succinylcholine Chloride (Quelicin) Confirm Administered Dose 200 mg .ROUTE .STK -MED ONE Stop: 03/10/19 07:33 - Exam Quality Assessment: Supplemental Oxygen, Central Line/PICC, Urine Catheter, DVT Prophylaxis General: Alert, Cooperative, Mild Distress Lungs: Clear to Auscultation, Normal Respiratory Effort Cardiovascular: Regular Rate, Regular Rhythm, No Murmurs GI/Abdominal Exam: Soft, Non-Tender, No Organomegaly, No Distention Extremities: Non-Tender, No Pedal Edema - Problem List Review Problem List Initiated/Reviewed/Updated: Yes - My Orders Last 24 Hours: My Active Orders 03/28/19 00:07 Racepinephrine [S-2 2.25%] 0.5 ml NEB Q2H PRN Sodium Chloride 0.9% 3 ml INH ASDIRECTED PRN 03/28/19 00:08 RT Aerosol Therapy [RC] ASDIRECTED 03/28/19 09:45 Furosemide [Lasix] 20 mg IVPUSH Q12H 03/28/19 09:53 Remove Urinary Catheter [Urinary Catheter Removal] [RC] Per Unit Routine - Plan Plan:: ASSESSMENT AND PLAN - Acute respiratory failure with hypoxia and hypercapnia - secondary to aspiration with vomiting 03/18. Chest x-ray stable. Overall fairly stable since extubation yesterday, continues to require significant assistance in management of secretions. -scheduled atropine drops -Racemic epinephrine nebulizer as needed for stridor and laryngeal spasm -Continue scopolamine patch -Supplement oxygen, consider NIPPV if needed -Diuresis -Vigorous pulmonary toilet -Remove arterial line and Rodriguez catheter -Consider replacement of central line, currently on day 8 Small bowel obstruction with pneumatosis - status post emergent laparotomy with small bowel resection and right colectomy 03/08. Abdomen not distended. He is having bowel movements. -Postoperative care per surgical team -He is receiving TPN -Pain control Type 2 diabetes mellitus - blood sugar levels have remained in goal range. -Continue glucometers every 6 hours -Continue insulin in the TPN -High dose sliding scale Humalog Hypokalemia - potassium level normal today. -Recheck in the morning Severe schizophrenia - patient is very debilitated because of his psychiatric illness. Now that he is extubated hopefully we can get his regular medications on board in the near future. -Continue low-dose Haldol -Continue regular dose Depakote -low dose lorazepam -Restart oral medications when able Acute kidney injury - resolved -Continue to closely monitor urine output and renal function Maintenance issues - - DVT prophylaxis - mechanical - GI prophylaxis - IV PPI - Nutrition - nothing by mouth, currently receiving TPN for nutritional support. We may try some liquids and medications later in the day - Rodriguez catheter - placed for strict intake and output monitoring with a critical patient Disposition - anticipate discharge home versus more likely the senior living. the patient's hospital stay has been greatly prolonged by multiple unforeseen complications including prolonged return of bowel function postoperatively, aspiration leading to respiratory failure and reintubation.
[2019-03-28] MEDS: Scopolamine 1.5 MG Transdermal Patch TRDERM SCH (10:35)
[2019-03-28] MEDS: Pantoprazole 40 MG Vial IV SCH (17:32)
[2019-03-28] MEDS: Latanoprost 0.005% Ophth Soln 2.5 ML Bottle EYEBOTH SCH (21:01)
[2019-03-28] MEDS ORDERED: Furosemide 20 MG/2 ML VIAL IVPUSH SCH (22:00)
[2019-03-29] MEDS: 1: AA 5%/Calcium/D15W/Lytes 1,000 ML with MVI, Adult with Vitamin K 10 ML, Chromium/Copp IV SCH ×6 (00:51→12:54)
[2019-03-29] MEDS: Magnesium Sulfate/Water 2 GM in Premix Bag 1 BAG IV SCH ×4 (02:08→19:57)
[2019-03-29] MEDS: Sodium Chloride 5% Ophth Soln 15 ML Bottle EYEBOTH SCH ×4 (05:20→21:28)
[2019-03-29] MEDS: Metoprolol Tartrate 5 MG/5 ML SDV IV SCH ×4 (05:23→22:44)
[2019-03-29] MEDS: Albuterol/Ipratropium 3.0-0.5 MG/3 ML Neb Soln INH SCH ×4 (07:22→21:27)
--- NOTE | 2019-03-29 08:06 | PN ---
DATE OF SERVICE: 03/29/2019 The patient has been afebrile with stable vital signs. He appears to be fairly alert. Respiratory status satisfactory. We will begin feeding the patient with the patient sitting during the meal and for at least an hour and a half afterwards and start with a full liquid diet with 5 small meals limiting the amount of oral intake at a given meal, and see how things go from that point forward. Otherwise, continue the present TPN. If he tolerates diet, we will begin backing down on that rate today. Haider Monae MD /[id number]
[2019-03-29] MEDS: Docusate Sodium 100 MG Cap PO SCH ×2 (08:38→21:36)
[2019-03-29] MEDS: LORazepam 2 MG/ML SDV IVPUSH SCH ×2 (08:55→21:04)
[2019-03-29] MEDS: Haloperidol Lactate 5 MG/ML SDV IVPUSH SCH ×2 (08:59→21:07)
[2019-03-29] MEDS: Insulin Glargine,Human Rec. Analog 100 Units/ML 3 ML Pen SUBCUT SCH ×2 (09:03→21:30)
[2019-03-29] MEDS: SCOPOLAMINE PATCH CHECK TOP SCH (09:06)
[2019-03-29] MEDS: Atropine Sulfate Ophth 2 ML Drops SL SCH (09:06)
[2019-03-29] MEDS: Levothyroxine 100 MCG Vial IVPUSH SCH (09:07)
--- NOTE | 2019-03-29 10:10 | PCM.PN ---
- General Info Date of Service: 03/29/19 Subjective Update: Mr. Perez has remained fairly stable from a respiratory standpoint since extubation 2 days ago. Vital signs are remained good and he has been afebrile. For the most part is noncommunicative, unable to provide meaningful history concerning symptoms or review of systems. - Patient Data Vitals - Most Recent: Last Vital Signs Temp 98 F 03/29/19 07:42 Pulse 108 H 03/29/19 07:42 Resp 36 H 03/29/19 07:42 BP 170/76 H 03/29/19 07:42 Pulse Ox 95 03/29/19 07:42 Weight - Most Recent: 166 lb 3.657 oz I&O - Last 24 Hours: Intake & Output 03/28/19 03/29/19 03/29/19 22:59 06:59 14:59 Intake Total 1243 1498 50 Balance 1243 1498 50 Lab Results Last 24 Hours: Laboratory Results - last 24 hr 03/29/19 03/29/19 Range/Units 04:15 04:15 WBC 9.8 (4.5-11.0) K/uL RBC 3.37 L (4.30-5.90) M/uL Hgb 9.7 L (12.0-15.0) g/dL Hct 31.7 L (40.0-54.0) % MCV 94 (80-98) fL MCH 29 (27-31) pg MCHC 31 L (32-36) % Plt Count 471 H (150-400) K/uL Sodium 146 (140-148) mmol/L Potassium 3.8 (3.6-5.2) mmol/L Chloride 108 (100-108) mmol/L Carbon Dioxide 29 (21-32) mmol/L Anion Gap 8.8 (5.0-14.0) mmol/L BUN 34 H (7-18) mg/dL Creatinine 0.9 (0.8-1.3) mg/dL Est Cr Clr Drug Dosing 74.91 mL/min Estimated GFR (MDRD) > 60 (>60) Glucose 125 H (74-106) mg/dL Calcium 8.9 (8.5-10.1) mg/dL Phosphorus 3.9 (2.5-4.9) mg/dL Total Bilirubin 0.5 (0.2-1.0) mg/dL AST 19 (15-37) U/L ALT 21 (12-78) U/L Alkaline Phosphatase 228 H (46-116) U/L Total Protein 6.9 (6.4-8.2) g/dL Albumin 3.0 L (3.4-5.0) g/dL Globulin 3.9 H (2.3-3.5) g/dL Albumin/Globulin Ratio 0.8 L (1.2-2.2) Med Orders - Current: Current Medications Albuterol (Proventil Neb Soln) 2.5 mg NEB Q4H PRN PRN Reason: Shortness Of Breath/wheezing Last Admin: 03/10/19 00:24 Dose: 2.5 mg Albuterol/Ipratropium (Duoneb 3.0-0.5 Mg/3 Ml) 3 ml INH QIDRT [facility] Last Admin: 03/29/19 07:22 Dose: 3 ml Atropine Sulfate (Atropine 1%) 0 ml SL BID [facility] Last Admin: 03/29/19 09:06 Dose: 4 drop Dextrose (Glutose 15) 15 gm PO ASDIRECTED PRN PRN Reason: HYPOGLYCEMIA Dextrose/Water (Dextrose 50% In Water) 50 ml IVPUSH ASDIRECTED PRN PRN Reason: HYPOGLYCEMIA Dimethicone/Zinc Oxide (Rash Relief-Zinc Oxide [place]) 0 gm TOP ASDIRECTED PRN PRN Reason: Perineal Comfort Measure Last Admin: 03/26/19 08:07 Dose: 4 spray Diphenhydramine HCl (Benadryl) 25 mg IVPUSH Q4H PRN PRN Reason: Itching Last Admin: 03/18/19 03:20 Dose: 25 mg Docusate Sodium (Colace) 100 mg PO BID [facility] Last Admin: 03/29/19 08:38 Dose: Not Given Glucagon (Glucagen) 1 mg IM ASDIRECTED PRN PRN Reason: HYPOGLYCEMIA Haloperidol Lactate (Haldol) 2 mg IVPUSH Q4H PRN PRN Reason: Agitation Last Admin: 03/27/19 16:15 Dose: 2 mg Haloperidol Lactate (Haldol) 2.5 mg IVPUSH BID [facility] Last Admin: 03/29/19 08:59 Dose: 2.5 mg Heparin Sodium (Porcine) (Heparin Lock Flush 100 Units/Ml) 500 units FLUSH ASDIRECTED PRN PRN Reason: Keep Vein Open Last Admin: 03/27/19 10:27 Dose: 500 units Valproic Acid 500 mg/ Sodium (Chloride) 55 mls @ 55 mls/hr IV Q8H [facility] Last Admin: 03/29/19 05:19 Dose: 55 mls/hr Heparin Sodium (Porcine) 5,000 (units/ Sodium Chloride) 501 mls @ 0.1 mls/hr IV ASDIRECTED [facility] Last Admin: 03/27/19 15:35 Dose: 1 units/hr, 0.1 mls/hr Sodium Chloride (Normal Saline) 1,000 mls @ 20 mls/hr IV ASDIRECTED [facility] Last Admin: 03/19/19 08:13 Dose: 125 mls/hr Multivitamins/Minerals 10 ml/Chromium/Copper/Manganese/Seleni/Zn 1 ml/ Amino Ac/ Electrol/Dextrose/Calcium 1,011 mls @ 82 mls/hr IV .BY DURATION [facility] Last Admin: 03/29/19 00:51 Dose: 82 mls/hr Amino Ac/Electrol/Dextrose/Calcium (Clinimix E /15) 1,000 mls @ 82 mls/hr IV .BY DURATION [facility] Last Admin: 03/28/19 12:27 Dose: 82 mls/hr Fat Emulsion Intravenous (Intralipid 20%) 100 mls @ 8.3 mls/hr IV Q48H [facility] Last Admin: 03/27/19 15:45 Dose: 8.3 mls/hr Magnesium Sulfate 2 gm/ Premix 50 mls @ 25 mls/hr IV Q6H [facility] Stop: 03/30/19 03:59 Last Admin: 03/29/19 07:38 Dose: 25 mls/hr Insulin Glargine (Lantus Solostar) 12 units SUBCUT BID [facility] Last Admin: 03/29/19 09:03 Dose: 12 units Insulin Human Lispro (Humalog) 0 unit SUBCUT ASDIRECTED [facility]; Protocol Last Admin: 03/23/19 15:11 Dose: 3 units Latanoprost (Xalatan 0.005% Ophth Soln) 0 ml EYEBOTH BEDTIME [facility] Last Admin: 03/28/19 21:01 Dose: 1 drop Levothyroxine Sodium (Synthroid) 100 mcg IVPUSH DAILY [facility] Last Admin: 03/29/19 09:07 Dose: 100 mcg Lorazepam (Ativan) 0.5 mg IVPUSH BID [facility] Last Admin: 03/29/19 08:55 Dose: 0.5 mg Lorazepam (Ativan) 1 mg IVPUSH Q1H PRN PRN Reason: Anxiety Last Admin: 03/27/19 19:27 Dose: 1 mg Metoprolol Tartrate (Lopressor) 2.5 mg IV Q6H [facility] Last Admin: 03/29/19 05:23 Dose: 2.5 mg Morphine Sulfate (Morphine) 2 mg IVPUSH Q1H PRN PRN Reason: Other Last Admin: 03/28/19 14:04 Dose: 2 mg Naloxone HCl (Narcan) 0.1 mg IV ASDIRECTED PRN PRN Reason: decreased respiratory rate Scopolamine Patch (Check) 1 each TOP DAILY [facility] Last Admin: 03/29/19 09:06 Dose: 1 each Ondansetron HCl (Zofran) 4 mg IVPUSH Q4H PRN PRN Reason: Nausea/Vomiting Last Admin: 03/18/19 17:31 Dose: 4 mg Pantoprazole Sodium (Protonix Iv) 40 mg IV Q24H [facility] Last Admin: 03/28/19 17:32 Dose: 40 mg Racepinephrine (S-2 2.25%) 0.5 ml NEB Q2H PRN PRN Reason: Shortness of Breath Last Admin: 03/28/19 00:32 Dose: 0.5 ml Scopolamine (Transderm-Scop) 1.5 mg TRDERM Q72H [facility] Last Admin: 03/28/19 10:35 Dose: 1.5 mg Sodium Chloride (Joseph 128 5% Ophth Soln) 0 ml EYEBOTH QID [facility]I Last Admin: 03/29/19 09:01 Dose: 2 drop Sodium Chloride (Sodium Chloride 0.9%) 3 ml INH ASDIRECTED PRN PRN Reason: mix with racepinephrine neb Last Admin: 03/28/19 00:35 Dose: 3 ml Discontinued Medications Acetylcysteine (Mucomyst 20%) 400 mg INH BIDRT [facility] Last Admin: 03/12/19 07:48 Dose: 200 mg Acetylcysteine (Mucomyst 20%) 200 mg INH BIDRT [facility] Stop: 03/12/19 23:59 Last Admin: 03/12/19 20:44 Dose: 200 mg Acetylcysteine (Mucomyst 20%) 200 mg NEB BIDRT [facility] Last Admin: 03/27/19 07:06 Dose: 200 mg Bisacodyl (Dulcolax) 10 mg PO BID [facility] Last Admin: 03/17/19 20:35 Dose: Not Given Bisacodyl (Dulcolax) 10 mg RECTAL ONETIME ONE Stop: 03/17/19 17:01 Last Admin: 03/17/19 17:10 Dose: 10 mg Bupivacaine HCl (Marcaine 0.5%) Confirm Administered Dose 50 ml .ROUTE .STK-MED ONE Stop: 03/10/19 06:23 Bupivacaine HCl (Marcaine 0.5%) Confirm Administered Dose 50 ml .ROUTE .STK-MED ONE Stop: 03/11/19 07:19 Last Admin: 03/11/19 07:28 Dose: 15 ml Ropivacaine 36 ml/Dexamethasone 8 mg/Epinephrine HCl 0.4 mg/ Sodium Chloride 41.6 ml 0 ml NERVRT ASDIRECTED [facility] Last Admin: 03/08/19 15:05 Dose: 80 syringe Ropivacaine 36 ml/Dexamethasone 8 mg/Epinephrine HCl 0.4 mg/ Sodium Chloride 41.6 ml 0 ml NERVRT ASDIRECTED [facility] Last Admin: 03/11/19 07:41 Dose: 80 syringe Dexamethasone (Dexamethasone) Confirm Administered Dose 4 mg .ROUTE .STK-MED ONE Stop: 03/08/19 12:18 Diphenhydramine HCl (Benadryl) 25 mg IVPUSH Q6H PRN PRN Reason: Itching Diphenhydramine HCl (Benadryl) 25 mg PO Q6H PRN PRN Reason: Itching Fentanyl (Sublimaze) Confirm Administered Dose 250 mcg .ROUTE .STK-MED ONE Stop: 03/08/19 12:19 Furosemide (Lasix) 20 mg IVPUSH ONETIME ONE Stop: 03/09/19 21:56 Last Admin: 03/09/19 22:10 Dose: 20 mg Furosemide (Lasix) Confirm Administered Dose 20 mg .ROUTE .STK-MED ONE Stop: 03/09/19 22:05 Last Admin: 03/09/19 22:10 Dose: Not Given Furosemide (Lasix) 20 mg IVPUSH ONETIME ONE Stop: 03/10/19 06:33 Last Admin: 03/10/19 07:20 Dose: 20 mg Furosemide (Lasix) 20 mg IVPUSH ONETIME ONE Stop: 03/12/19 18:01 Last Admin: 03/12/19 17:43 Dose: 20 mg Furosemide (Lasix) 20 mg IVPUSH ONETIME ONE Stop: 03/12/19 07:31 Last Admin: 03/12/19 07:44 Dose: 20 mg Furosemide (Lasix) 10 mg IVPUSH Q12H [facility] Stop: 03/13/19 21:01 Last Admin: 03/13/19 20:29 Dose: 10 mg Furosemide (Lasix) 20 mg IVPUSH NOW ONE Stop: 03/15/19 11:31 Last Admin: 03/15/19 11:38 Dose: 20 mg Furosemide (Lasix) 20 mg IVPUSH ONETIME ONE Stop: 03/16/19 13:31 Last Admin: 03/16/19 14:18 Dose: 20 mg Furosemide (Lasix) 20 mg IVPUSH NOW ONE Stop: 03/17/19 09:16 Last Admin: 03/17/19 09:47 Dose: 20 mg Furosemide (Lasix) 20 mg IVPUSH Q12H [facility] Stop: 03/22/19 21:31 Last Admin: 03/22/19 22:10 Dose: 20 mg Furosemide (Lasix) 20 mg IVPUSH Q12H [facility] Stop: 03/23/19 22:01 Last Admin: 03/23/19 22:47 Dose: 20 mg Furosemide (Lasix) 20 mg IVPUSH Q8H [facility] Stop: 03/25/19 02:01 Last Admin: 03/25/19 02:11 Dose: 20 mg Furosemide (Lasix) 20 mg IVPUSH Q12H [facility] Last Admin: 03/25/19 21:32 Dose: 20 mg Furosemide (Lasix) 20 mg IVPUSH Q8H [facility] Last Admin: 03/28/19 09:14 Dose: 20 mg Furosemide (Lasix) 20 mg IVPUSH Q12H [facility] Last Admin: 03/28/19 21:46 Dose: 20 mg Glycopyrrolate (Robinul) Confirm Administered Dose 1 mg .ROUTE .STK-MED ONE Stop: 03/08/19 12:18 Haloperidol Lactate (Haldol) 5 mg IVPUSH BID [facility] Last Admin: 03/09/19 09:06 Dose: 5 mg Heparin Sodium (Porcine) (Heparin Sodium) Confirm Administered Dose 5,000 units .ROUTE .[facility] ONE Stop: 03/10/19 07:04 Last Admin: 03/10/19 07:57 Dose: Not Given Heparin Sodium (Porcine) (Heparin Lock Flush 100 Units/Ml) Confirm Administered Dose 1,000 units .ROUTE .[facility] ONE Stop: 03/11/19 07:32 Last Admin: 03/11/19 08:31 Dose: Not Given Heparin Sodium (Porcine) (Heparin Sodium) Confirm Administered Dose 5,000 units .ROUTE .[facility] ONE Stop: 03/18/19 23:03 Last Admin: 03/19/19 02:36 Dose: Not Given Hydromorphone HCl (Dilaudid [employer] 15 Mg In Ns 30 Ml) 0 mg IV ASDIRECTED PRN; Protocol PRN Reason: PAIN Last Admin: 03/16/19 16:43 Dose: 15 mg Sodium Chloride (Normal Saline) 1,000 mls @ 1,000 mls/hr IV ASDIRECTED [facility] Last Admin: 03/08/19 10:02 Dose: 1,000 mls/hr Ampicillin Sodium/Sulbactam (Sodium 1.5 gm/ Sodium Chloride) 50 mls @ 100 mls/ hr IV Q6H [facility] Last Admin: 03/08/19 13:30 Dose: 100 mls/hr Aztreonam 1 gm/ Sodium (Chloride) 50 mls @ 100 mls/hr IV Q12H [facility] Last Admin: 03/08/19 13:30 Dose: 100 mls/hr Lactated Ringer's (Ringers, Lactated) 1,000 mls @ 150 mls/hr IV ASDIRECTED [facility] Last Admin: 03/08/19 13:31 Dose: 150 mls/hr Lactated Ringer's (Ringers, Lactated) Confirm Administered Dose 1,000 mls @ as directed .ROUTE .[facility] ONE Stop: 03/08/19 15:16 Lactated Ringer's (Ringers, Lactated) 1,000 mls @ 100 mls/hr IV ASDIRECTED [facility] Last Admin: 03/09/19 03:26 Dose: 100 mls/hr Dextrose/Lactated Ringer's (Dextrose 5%-Lactated Ringers) 1,000 mls @ 100 mls/ hr IV ASDIRECTED [facility] Stop: 03/12/19 11:59 Last Admin: 03/11/19 23:35 Dose: 100 mls/hr Ampicillin Sodium/Sulbactam (Sodium 3 gm/ Sodium Chloride) 100 mls @ 200 mls/ hr IV Q6H [facility] Last Admin: 03/13/19 05:19 Dose: 200 mls/hr Aztreonam 1 gm/ Sodium (Chloride) 50 mls @ 100 mls/hr IV Q8H [facility] Last Admin: 03/13/19 04:23 Dose: 100 mls/hr Potassium Chloride 20 meq/Lidocaine HCl 2 ml/ Sodium Chloride 112 mls @ 56 mls/ hr IV Q2H [facility] Stop: 03/09/19 15:59 Last Admin: 03/09/19 17:30 Dose: 56 mls/hr Lactated Ringer's (Ringers, Lactated) 750 mls @ 750 mls/hr IV [facility]OL[facility] ONE Stop: 03/09/19 16:25 Last Admin: 03/09/19 15:53 Dose: 750 mls/hr Lactated Ringer's (Ringers, Lactated) 750 mls @ 999 mls/hr IV [facility] ONE Stop: 03/09/19 21:15 Last Admin: 03/09/19 21:08 Dose: 999 mls/hr Heparin Sodium (Porcine) 5,000 (units/ Sodium Chloride) 501 mls @ 5 mls/hr IV ASDIRECTED [facility] Last Admin: 03/12/19 13:58 Dose: 5 mls/hr Propofol (Diprivan 100 Ml) 100 mls @ 2.191 mls/hr IV TITRATE [facility]; Protocol Last Titration: 03/15/19 07:18 Dose: 0 mcg/kg/min, 0 mls/hr Linezolid 600 mg/ Premix 300 mls @ 300 mls/hr IV Q12H [facility] Last Admin: 03/11/19 21:53 Dose: 300 mls/hr Potassium Chloride 20 meq/Lidocaine HCl 2 ml/ Sodium Chloride 112 mls @ 56 mls/ hr IV Q2H [facility] Stop: 03/10/19 16:29 Last Admin: 03/10/19 16:07 Dose: 56 mls/hr Potassium Chloride 20 meq/ (Premix) 0 mls @ 50 mls/hr IV Q2H [facility] Stop: 03/11/19 07:28 Last Admin: 03/11/19 07:32 Dose: 50 mls/hr Magnesium Sulfate 2 gm/ Premix 50 mls @ 25 mls/hr IV Q6H [facility] Last Admin: 03/12/19 04:27 Dose: 25 mls/hr Potassium Phosphate 20 mmole/ (Sodium Chloride) 256.6667 mls @ 85 mls/hr IV Q3H [facility] Stop: 03/11/19 17:59 Last Admin: 03/11/19 14:42 Dose: 85 mls/hr Multivitamins/Minerals 10 ml/Chromium/Copper/Manganese/Seleni/Zn 1 ml/ Amino Ac/ Electrol/Dextrose/Calcium 1,011 mls @ 82 mls/hr IV .BY DURATION [facility] Last Admin: 03/13/19 12:34 Dose: 82 mls/hr Amino Ac/Electrol/Dextrose/Calcium (Clinimix E 15) 1,000 mls @ 82 mls/hr IV .BY DURATION [facility] Last Admin: 03/14/19 01:20 Dose: 82 mls/hr Sodium Chloride (Normal Saline) 1,000 mls @ 20 mls/hr IV ASDIRECTED [facility] Last Admin: 03/13/19 22:58 Dose: 20 mls/hr Potassium Phosphate 20 mmole/ (Sodium Chloride) 256.6667 mls @ 85.556 mls/hr IV Q3H [facility] Stop: 03/12/19 16:59 Last Admin: 03/12/19 14:49 Dose: 85.556 mls/hr Potassium Chloride 20 meq/ (Premix) 100 mls @ 50 mls/hr IV ONETIME ONE Stop: 03/13/19 10:59 Last Admin: 03/13/19 09:29 Dose: 50 mls/hr Potassium Phosphate 30 mmole/ (Sodium Chloride) 110 mls @ 30 mls/hr IV ONETIME ONE Stop: 03/13/19 14:39 Last Admin: 03/13/19 12:14 Dose: 30 mls/hr Linezolid 600 mg/ Premix 300 mls @ 300 mls/hr IV Q12H [facility] Last Admin: 03/20/19 09:52 Dose: 300 mls/hr Magnesium Sulfate 2 gm/ Premix 50 mls @ 25 mls/hr IV Q6H [facility] Stop: 03/16/19 03:59 Last Admin: 03/16/19 01:59 Dose: 25 mls/hr Azithromycin 250 mg/ Sodium (Chloride) 150 mls @ 150 mls/hr IV Q12H [facility] Azithromycin 250 mg/ Sodium (Chloride) 150 mls @ 150 mls/hr IV Q24H [facility] Last Admin: 03/17/19 11:28 Dose: 150 mls/hr Multivitamins/Minerals 10 ml/Chromium/Copper/Manganese/Seleni/Zn 1 ml/ Amino Ac/ Electrol/Dextrose/Calcium 1,011 mls @ 82 mls/hr IV .BY DURATION [facility] Stop: 03/18/19 14:59 Last Admin: 03/17/19 14:26 Dose: 82 mls/hr Amino Ac/Electrol/Dextrose/Calcium (Clinimix E 5/15) 1,000 mls @ 82 mls/hr IV .BY DURATION [facility] Stop: 03/18/19 14:59 Last Admin: 03/18/19 03:38 Dose: 82 mls/hr Multivitamins/Minerals 10 ml/Chromium/Copper/Manganese/Seleni/Zn 1 ml/ Amino Ac/ Electrol/Dextrose/Calcium 1,011 mls @ 80 mls/hr IV .BY DURATION [facility] Last Admin: 03/18/19 16:05 Dose: 40 mls/hr Amino Ac/Electrol/Dextrose/Calcium (Clinimix E 5/15) 1,000 mls @ 40 mls/hr IV .BY DURATION [facility] Piperacillin Sod/Tazobactam (Sod 3.375 gm/ Sodium Chloride) 50 mls @ 100 mls/ hr IV Q6H [facility] Last Admin: 03/19/19 04:17 Dose: 100 mls/hr Sodium Chloride (Normal Saline) Confirm Administered Dose 50 mls @ as directed .ROUTE .STK-MED ONE Stop: 03/18/19 21:35 Last Admin: 03/18/19 21:40 Dose: Not Given Propofol (Diprivan 100 Ml) Confirm Administered Dose 100 mls @ as directed .ROUTE .STK-MED ONE Stop: 03/18/19 23:04 Last Admin: 03/19/19 01:04 Dose: Not Given Propofol (Diprivan 100 Ml) 100 mls @ 2.195 mls/hr IV TITRATE [facility]; Protocol Last Titration: 03/27/19 07:00 Dose: 0 mcg/kg/min, 0 mls/hr Sodium Chloride (Normal Saline) 500 mls @ 999 mls/hr IV .[facility] ONE Stop: 03/19/19 00:00 Last Admin: 03/19/19 00:00 Dose: 999 mls/hr Sodium Chloride (Normal Saline) 100 mls @ 4 mls/sec IV ASDIRECTED [facility] Stop: 03/19/19 10:00 Last Admin: 03/19/19 07:45 Dose: 4 mls/sec Multivitamins/Minerals 10 ml/Chromium/Copper/Manganese/Seleni/Zn 1 ml/ Amino Ac/ Electrol/Dextrose/Calcium 1,011 mls @ 80 mls/hr IV .BY DURATION [facility] Stop: 03/19/19 20:00 Amino Ac/Electrol/Dextrose/Calcium (Clinimix E 5/15) 1,000 mls @ 80 mls/hr IV .BY DURATION [facility] Stop: 03/19/19 20:00 Last Admin: 03/19/19 08:12 Dose: 80 mls/hr Piperacillin/Tazobactam/ (Dextrose 3.375 gm/ Premix) 50 mls @ 100 mls/hr IV Q6H [facility] Last Admin: 03/25/19 09:29 Dose: 100 mls/hr Multivitamins/Minerals 10 ml/Chromium/Copper/Manganese/Seleni/Zn 1 ml/ Amino Ac/ Electrol/Dextrose/Calcium 1,011 mls @ 82 mls/hr IV .BY DURATION [facility] Stop: 03/23/19 20:00 Last Admin: 03/22/19 21:45 Dose: 82 mls/hr Amino Ac/Electrol/Dextrose/Calcium (Clinimix E 5/15) 1,000 mls @ 82 mls/hr IV .BY DURATION [facility] Stop: 03/23/19 20:00 Last Admin: 03/23/19 11:17 Dose: Not Given Albumin Human (Albumin 25%) 25 gm in 100 mls @ 25 mls/hr IV Q24H [facility] Stop: 03/23/19 11:59 Last Admin: 03/23/19 08:20 Dose: 25 mls/hr Albumin Human (Albumin 25%) 25 gm in 100 mls @ 25 mls/hr IV Q24H [facility] Stop: 03/23/19 15:59 Last Admin: 03/23/19 11:22 Dose: 25 mls/hr Azithromycin 250 mg/ Sodium (Chloride) 150 mls @ 150 mls/hr IV Q24H [facility] Last Admin: 03/24/19 11:55 Dose: 150 mls/hr Potassium Chloride 20 meq/ (Premix) 100 mls @ 50 mls/hr IV ONETIME ONE Stop: 03/21/19 10:59 Last Admin: 03/21/19 09:29 Dose: 50 mls/hr Potassium Chloride 40 meq/ (Premix) 100 mls @ 25 mls/hr IV ONETIME ONE Stop: 03/22/19 13:59 Last Admin: 03/22/19 10:01 Dose: 25 mls/hr Magnesium Sulfate 2 gm/ Premix 50 mls @ 25 mls/hr IV Q6H [facility] Stop: 03/26/19 03:59 Last Admin: 03/24/19 08:07 Dose: 25 mls/hr Potassium Chloride 40 meq/ (Premix) 100 mls @ 25 mls/hr IV ONETIME ONE Stop: 03/23/19 13:59 Last Admin: 03/23/19 09:22 Dose: 25 mls/hr Potassium Chloride 40 meq/ (Premix) 100 mls @ 25 mls/hr IV ONETIME ONE Stop: 03/24/19 13:59 Last Admin: 03/24/19 09:54 Dose: 25 mls/hr Potassium Chloride 40 meq/ (Premix) 100 mls @ 25 mls/hr IV ONETIME ONE Stop: 03/25/19 13:59 Last Admin: 03/25/19 10:32 Dose: 25 mls/hr Insulin Glargine (Lantus Solostar) 10 units SUBCUT BID [facility] Last Admin: 03/16/19 09:27 Dose: 10 unit Insulin Glargine (Lantus Solostar) 14 units SUBCUT BID [facility] Last Admin: 03/18/19 09:06 Dose: 14 units Insulin Glargine (Lantus Solostar) 7 units SUBCUT BID [facility] Stop: 03/18/19 21:01 Last Admin: 03/18/19 21:25 Dose: Not Given Insulin Human Lispro (Humalog) 0 unit SUBCUT Q6H PRN; Protocol PRN Reason: MEDIUM CORRECTIONAL DOSING Last Admin: 03/14/19 17:42 Dose: 7 units Insulin Human Lispro (Humalog) 15 unit SUBCUT ONETIME ONE Stop: 03/14/19 12:05 Last Admin: 03/14/19 12:10 Dose: 15 units Insulin Human Lispro (Humalog) 0 unit SUBCUT ONETIME ONE Stop: 03/15/19 00:16 Last Admin: 03/15/19 00:25 Dose: 12 units Iopamidol (Isovue-370 (76%)) 100 ml IV . DIRECTED [facility] Stop: 03/19/19 10:00 Last Admin: 03/19/19 07:45 Dose: 100 ml Lidocaine HCl (Xylocaine-Mpf 1%) 5 ml INJECT ONETIME ONE Stop: 03/11/19 05:30 Last Admin: 03/11/19 05:39 Dose: 2 ml Lidocaine/Epinephrine (Xylocaine 1% With Epinephrine 1:100,000) Confirm Administered Dose 50 ml .ROUTE .STK-MED ONE Stop: 03/10/19 06:23 Lidocaine/Epinephrine (Xylocaine 1% With Epinephrine 1:100,000) Confirm Administered Dose 50 ml .ROUTE .STK-MED ONE Stop: 03/11/19 07:19 Last Admin: 03/11/19 07:28 Dose: 15 ml Linezolid (Zyvox) 600 mg IRR .STK-MED ONE Stop: 03/11/19 07:39 Last Admin: 03/11/19 07:38 Dose: 600 mg Lorazepam (Ativan) 0.5 mg IVPUSH BID [facility] Last Admin: 03/09/19 09:09 Dose: 0.5 mg Lorazepam (Ativan) 0.5 mg IVPUSH Q4H PRN PRN Reason: Anxiety Last Admin: 03/27/19 10:07 Dose: 0.5 mg Lorazepam (Ativan) 0.25 mg IVPUSH BID [facility] Last Admin: 03/10/19 09:09 Dose: 0.25 mg Meropenem (Merrem) Confirm Administered Dose 500 mg .ROUTE .STK-MED ONE Stop: 03/08/19 12:05 Last Admin: 03/08/19 14:00 Dose: 500 mg Meropenem (Merrem) Confirm Administered Dose 500 mg .ROUTE .STK-MED ONE Stop: 03/10/19 06:23 Meropenem (Merrem) Confirm Administered Dose 500 mg .ROUTE .STK-MED ONE Stop: 03/11/19 06:45 Last Admin: 03/11/19 07:38 Dose: 500 mg Methylprednisolone Sodium Succinate (Solu-Medrol) 40 mg IVPUSH Q6H [facility] Last Admin: 03/20/19 09:50 Dose: 40 mg Metoprolol Tartrate (Lopressor) 5 mg IV Q6H [facility] Last Admin: 03/26/19 07:56 Dose: Not Given Neostigmine Methylsulfate (Neostigmine) Confirm Administered Dose 5 mg .ROUTE .STK-MED ONE Stop: 03/08/19 12:18 Non-Formulary Medication (Total Parenteral Nutrition, Central) 1,000 ml .XX .Continue Order [facility] Stop: 03/22/19 12:00 Non-Formulary Medication (Total Parenteral Nutrition, Central) 1,000 ml .XX .Continue Order [facility] Stop: 03/23/19 12:00 Non-Formulary Medication (Total Parenteral Nutrition, Central) 1,000 ml .XX .Continue Order [facility] Stop: 03/24/19 15:00 Non-Formulary Medication (Total Parenteral Nutrition, Central) 1,000 ml .XX .Continue Order [facility] Stop: 03/26/19 12:00 Ondansetron HCl (Zofran) Confirm Administered Dose 4 mg .ROUTE .STK-MED ONE Stop: 03/08/19 12:18 Ondansetron HCl (Zofran) 4 mg IVPUSH Q6H PRN PRN Reason: Nausea/Vomiting Piperacillin Sod/Tazobactam Sod (Zosyn) Confirm Administered Dose 3.375 gm .ROUTE .STK-MED ONE Stop: 03/18/19 21:34 Last Admin: 03/18/19 21:40 Dose: Not Given Propofol (Diprivan 20 Ml) Confirm Administered Dose 200 mg .ROUTE .STK-MED ONE Stop: 03/08/19 12:18 Propofol (Diprivan 20 Ml) Confirm Administered Dose 200 mg .ROUTE .STK-MED ONE Stop: 03/10/19 07:33 Rocuronium [place] (Zemuron) Confirm Administered Dose 50 mg .ROUTE .STK-MED ONE Stop: 03/08/19 12:18 Succinylcholine Chloride (Quelicin) Confirm Administered Dose 200 mg .ROUTE .STK -MED ONE Stop: 03/08/19 12:18 Succinylcholine Chloride (Quelicin) Confirm Administered Dose 200 mg .ROUTE .STK -MED ONE Stop: 03/10/19 07:33 - Exam Quality Assessment: Supplemental Oxygen, Central Line/PICC, DVT Prophylaxis. No : Urine Catheter General: Alert, Cooperative, Mild Distress Lungs: Clear to Auscultation, Normal Respiratory Effort Cardiovascular: Regular Rate, Regular Rhythm, No Murmurs GI/Abdominal Exam: Soft, Non-Tender, No Organomegaly, No Distention Extremities: Non-Tender, No Pedal Edema - Problem List Review Problem List Initiated/Reviewed/Updated: Yes - Plan Plan:: ASSESSMENT AND PLAN - Acute respiratory failure with hypoxia and hypercapnia - Overall fairly stable since extubation 2 days ago, continues to require significant assistance in management of secretions. -Racemic epinephrine nebulizer as needed for stridor and laryngeal spasm -Continue scopolamine patch -Supplement oxygen, consider NIPPV if needed -Diuresis -Vigorous pulmonary toilet -Remove arterial line and Rodriguez catheter -Consider replacement of central line, currently on day 9 Small bowel obstruction with pneumatosis - status post emergent laparotomy with small bowel resection and right colectomy 03/08. Abdomen not distended. He is having bowel movements. -Postoperative care per surgical team -He is receiving TPN -Pain control Type 2 diabetes mellitus - blood sugar levels have remained in goal range. -Continue glucometers every 6 hours -Continue insulin in the TPN -High dose sliding scale Humalog Hypokalemia - potassium level normal today. -Recheck in the morning Severe schizophrenia - patient is very debilitated because of his psychiatric illness. Now that he is extubated hopefully we can get his regular medications on board in the near future. -Continue low-dose Haldol -Continue regular dose Depakote -low dose lorazepam -Restart oral medications when able Acute kidney injury - resolved -Continue to closely monitor urine output and renal function Maintenance issues - - DVT prophylaxis - mechanical - GI prophylaxis - IV PPI - Nutrition - nothing by mouth, currently receiving TPN for nutritional support. We may try some liquids and medications later in the day - Rodriguez catheter - placed for strict intake and output monitoring with a critical patient Disposition - anticipate discharge home versus more likely the long term. the patient's hospital stay has been greatly prolonged by multiple unforeseen complications including prolonged return of bowel function postoperatively, aspiration leading to respiratory failure and reintubation.
--- NOTE | 2019-03-29 11:47 | PN ---
DATE OF SERVICE: 03/25/2019 The patient has been afebrile with stable vital signs. Level of alertness is roughly status quo. The patient had some degree of diuresis yesterday, and Dr. Nj is hoping that will be helpful in weaning today. Otherwise, NG output is relatively scant and will probably be discontinued when the patient is otherwise extubation. For nutrition, will continue the TPN. As the potassium is marginally low at 3.6, we will tweak that a little bit by adding 15 mmol of K-Phos to the present TPN solution. Otherwise, agus will be removed today and Steri-Strips applied. Continue the present management with the assistance of Dr. Nj. At some point, if the patient has failed to be weaned, we may need to think in terms of a tracheostomy. Haider Monae MD /[id number]
--- NOTE | 2019-03-29 13:03 | PN ---
DATE OF SERVICE: 03/28/2019 The patient has been afebrile with stable vital signs. He was extubated yesterday. Having some problems with oral secretions, but having some coughing episodes with that, where he probably is having some minor aspiration. Otherwise, no nausea or vomiting has been evident and O2 saturations are remaining in the 90% to 96% range, dropping into the low range after coughing. Otherwise, labs are stable today, other then slightly low magnesium. At this point, we will try having him sitting up as much as possible to likely reduce the risk of aspiration episodes. Physical Therapy will be seeing the patient tomorrow. I think we should limit the p.o. intake for another day or so until we get a little bit better handle on his ability to clear secretions, to avoid any aspiration events and, otherwise, continue the TPN. Haider Monae MD /[id number]
[2019-03-29] MEDS: Dimethicone 20%/Zinc Oxide 25% 56 GM Spray Bottle TOP PRN ×2 (13:11→15:40)
--- NOTE | 2019-03-29 13:24 | PN ---
DATE OF SERVICE: 03/24/2019 The patient has not yet been able to be weaned off the ventilator. Otherwise, continuing the TPN. We did add some Zithromax to augment GI tract motility. Bowels are moving fairly well, and NG output is relatively scant. I think we will not need to do any gastrostomy tubes at this point given what appears to be a better-functioning GI tract at this juncture. We will continue to actively work with Dr. Nj weaning to the patient and continuing the present TPN. Haider Monae MD /[id number]
--- NOTE | 2019-03-29 14:02 | PN ---
DATE OF SERVICE: 03/27/2019 The patient has been afebrile with stable vital signs, still on ventilator and will try a weaning trial a little bit later. Still has a large amount of oral salivary-type secretions, and he has been started on some atropine. This seems to be helping somewhat, per nursing, and we will see how the weaning goes today. Otherwise, continue the nutritional support with TPN. As part of that, I think we need to give him some fat emulsion so as to avoid essential fatty acid deficiency. We will give him 100 mL of 20% Intralipid every other day starting today. Otherwise, continue management with assistance of Dr. Nj and Dr. Jaffe. Haider Monae MD /[id number]
[2019-03-29] MEDS: methylPREDNISolone Sodium Succinate 40 MG/1 ML SDV IVPUSH SCH ×2 (15:46→21:26)
[2019-03-29] MEDS: Fat Emulsion 100 ML IV SCH (15:52)
[2019-03-29] MEDS: LORazepam 2 MG/ML SDV IVPUSH PRN (16:12)
[2019-03-29] MEDS: Pantoprazole 40 MG Vial IV SCH (17:29)
[2019-03-29] MEDS: Latanoprost 0.005% Ophth Soln 2.5 ML Bottle EYEBOTH SCH (21:04)
[2019-03-29] MEDS: Insulin Lispro 100 Unit/ML 3 ML KwikPen SUBCUT SCH (21:32)
[2019-03-29] MEDS: Morphine 2 MG/ML Syringe IVPUSH PRN (21:50)
[2019-03-29] MEDS: Nystatin Topical Powder 15 GM Bottle TOP SCH (22:53)
[2019-03-30] MEDS: LORazepam 2 MG/ML SDV IVPUSH PRN ×4 (00:50→21:03)
[2019-03-30] MEDS: 1: AA 5%/Calcium/D15W/Lytes 1,000 ML with MVI, Adult with Vitamin K 10 ML, Chromium/Copp IV SCH ×6 (00:55→13:08)
[2019-03-30] MEDS: Insulin Lispro 100 Unit/ML 3 ML KwikPen SUBCUT SCH ×2 (03:13→08:50)
[2019-03-30] MEDS: Magnesium Sulfate/Water 2 GM in Premix Bag 1 BAG IV SCH (03:14)
[2019-03-30] MEDS: Metoprolol Tartrate 5 MG/5 ML SDV IV SCH ×4 (04:05→22:18)
[2019-03-30] MEDS: methylPREDNISolone Sodium Succinate 40 MG/1 ML SDV IVPUSH SCH ×4 (04:09→22:16)
[2019-03-30] MEDS: Sodium Chloride 5% Ophth Soln 15 ML Bottle EYEBOTH SCH ×4 (05:27→22:18)
[2019-03-30] MEDS: Nystatin Topical Powder 15 GM Bottle TOP SCH ×4 (05:28→22:17)
--- NOTE | 2019-03-30 05:29 | CRLCR ---
INDICATION: F/U ASPIRATION COMPARISON: 03/27/2018. FINDINGS: Single portable AP view of the chest demonstrates interval extubation. And enteric tube remains in place, but appears to have been retracted with side port now likely above the level of the diaphragm. Right subclavian central venous catheter remains in place. Persistent low lung volumes but improved aeration both lung bases. No pneumothorax. IMPRESSION: 1. Interval extubation. 2. Interval retraction of previously seen enteric tube, with the side port now likely above the level of the diaphragm. Recommend advancement. 3. Interval improved aeration in both lung bases. Dictated by Gregor Avina MD @ 03/30/2019 5:27:30 AM Dictated by: Gregor Avina MD @ 03/30/2019 05:27:44 (Electronically Signed)
[2019-03-30] MEDS: Albuterol/Ipratropium 3.0-0.5 MG/3 ML Neb Soln INH SCH ×4 (06:59→21:02)
[2019-03-30] MEDS: Haloperidol Lactate 5 MG/ML SDV IVPUSH SCH ×2 (08:27→20:45)
[2019-03-30] MEDS: LORazepam 2 MG/ML SDV IVPUSH SCH ×2 (08:28→21:01)
[2019-03-30] MEDS: Docusate Sodium 100 MG Cap PO SCH ×2 (08:29→22:20)
[2019-03-30] MEDS: SCOPOLAMINE PATCH CHECK TOP SCH (08:33)
[2019-03-30] MEDS: Levothyroxine 100 MCG Vial IVPUSH SCH (08:35)
[2019-03-30] MEDS: Insulin Glargine,Human Rec. Analog 100 Units/ML 3 ML Pen SUBCUT SCH ×2 (08:51→20:48)
--- NOTE | 2019-03-30 09:22 | PCM.PN ---
- General Info Date of Service: 03/30/19 Subjective Update: Mr. Perez unfortunately an episode of vomiting again last night, did not appear that he had significant aspiration with this episode. Nursing staff was in the room and suctioned him quickly, respiratory status has been stable. He was empirically started on antibiotic therapy and IV Solu-Medrol. NG tube has been placed and he is going to undergo CT scan this morning. - Patient Data Vitals - Most Recent: Last Vital Signs Temp 98 F 03/30/19 07:52 Pulse 108 H 03/30/19 07:52 Resp 21 H 03/30/19 07:52 BP 168/83 H 03/30/19 07:52 Pulse Ox 93 L 03/30/19 07:52 Weight - Most Recent: 166 lb 3.657 oz I&O - Last 24 Hours: Intake & Output 03/29/19 03/30/19 03/30/19 22:59 06:59 14:59 Intake Total 1212 1503 50 Output Total 550 200 Balance 662 1303 50 Med Orders - Current: Current Medications Albuterol (Proventil Neb Soln) 2.5 mg NEB Q4H PRN PRN Reason: Shortness Of Breath/wheezing Last Admin: 03/10/19 00:24 Dose: 2.5 mg Albuterol/Ipratropium (Duoneb 3.0-0.5 Mg/3 Ml) 3 ml INH QIDRT [facility] Last Admin: 03/30/19 06:59 Dose: 3 ml Dextrose (Glutose 15) 15 gm PO ASDIRECTED PRN PRN Reason: HYPOGLYCEMIA Dextrose/Water (Dextrose 50% In Water) 50 ml IVPUSH ASDIRECTED PRN PRN Reason: HYPOGLYCEMIA Dimethicone/Zinc Oxide (Rash Relief-Zinc Oxide [place]) 0 gm TOP ASDIRECTED PRN PRN Reason: Perineal Comfort Measure Last Admin: 03/29/19 15:40 Dose: 6 spray Diphenhydramine HCl (Benadryl) 25 mg IVPUSH Q4H PRN PRN Reason: Itching Last Admin: 03/18/19 03:20 Dose: 25 mg Docusate Sodium (Colace) 100 mg PO BID [facility] Last Admin: 03/30/19 08:29 Dose: Not Given Glucagon (Glucagen) 1 mg IM ASDIRECTED PRN PRN Reason: HYPOGLYCEMIA Haloperidol Lactate (Haldol) 2 mg IVPUSH Q4H PRN PRN Reason: Agitation Last Admin: 03/27/19 16:15 Dose: 2 mg Haloperidol Lactate (Haldol) 2.5 mg IVPUSH BID [facility] Last Admin: 03/30/19 08:27 Dose: 2.5 mg Heparin Sodium (Porcine) (Heparin Lock Flush 100 Units/Ml) 500 units FLUSH ASDIRECTED PRN PRN Reason: Keep Vein Open Last Admin: 03/27/19 10:27 Dose: 500 units Valproic Acid 500 mg/ Sodium (Chloride) 55 mls @ 55 mls/hr IV Q8H [facility] Last Admin: 03/30/19 04:47 Dose: 55 mls/hr Sodium Chloride (Normal Saline) 1,000 mls @ 20 mls/hr IV ASDIRECTED [facility] Last Admin: 03/19/19 08:13 Dose: 125 mls/hr Multivitamins/Minerals 10 ml/Chromium/Copper/Manganese/Seleni/Zn 1 ml/ Amino Ac/ Electrol/Dextrose/Calcium 1,011 mls @ 82 mls/hr IV .BY DURATION [facility] Last Admin: 03/30/19 00:55 Dose: 82 mls/hr Amino Ac/Electrol/Dextrose/Calcium (Clinimix E 5/15) 1,000 mls @ 82 mls/hr IV .BY DURATION [facility] Last Admin: 03/29/19 12:54 Dose: 82 mls/hr Fat Emulsion Intravenous (Intralipid 20%) 100 mls @ 8.3 mls/hr IV Q48H [facility] Last Admin: 03/29/19 15:52 Dose: 8.3 mls/hr Meropenem 1 gm/ Sodium (Chloride) 50 mls @ 100 mls/hr IV Q8H [facility] Last Admin: 03/30/19 07:29 Dose: 100 mls/hr Insulin Glargine (Lantus Solostar) 12 units SUBCUT BID [facility] Last Admin: 03/30/19 08:51 Dose: 12 units Insulin Human Lispro (Humalog) 0 unit SUBCUT ASDIRECTED [facility]; Protocol Last Admin: 03/30/19 08:50 Dose: 3 units Latanoprost (Xalatan 0.005% Ophth Soln) 0 ml EYEBOTH BEDTIME [facility] Last Admin: 03/29/19 21:04 Dose: 1 drop Levothyroxine Sodium (Synthroid) 100 mcg IVPUSH DAILY [facility] Last Admin: 03/30/19 08:35 Dose: 100 mcg Lorazepam (Ativan) 0.5 mg IVPUSH BID [facility] Last Admin: 03/30/19 08:28 Dose: 0.5 mg Lorazepam (Ativan) 1 mg IVPUSH Q1H PRN PRN Reason: Anxiety Last Admin: 03/30/19 00:50 Dose: 1 mg Methylprednisolone Sodium Succinate (Solu-Medrol) 40 mg IVPUSH Q6H [facility] Last Admin: 03/30/19 04:09 Dose: 40 mg Metoprolol Tartrate (Lopressor) 5 mg IV Q6H [facility] Last Admin: 03/30/19 04:05 Dose: 5 mg Morphine Sulfate (Morphine) 2 mg IVPUSH Q1H PRN PRN Reason: Other Last Admin: 03/29/19 21:50 Dose: 2 mg Naloxone HCl (Narcan) 0.1 mg IV ASDIRECTED PRN PRN Reason: decreased respiratory rate Scopolamine Patch (Check) 1 each TOP DAILY [facility] Last Admin: 03/30/19 08:33 Dose: 1 each Nystatin (Nystop) 0 gm TOP QID [facility] Last Admin: 03/30/19 05:28 Dose: 1 applic Ondansetron HCl (Zofran) 4 mg IVPUSH Q4H PRN PRN Reason: Nausea/Vomiting Last Admin: 03/18/19 17:31 Dose: 4 mg Pantoprazole Sodium (Protonix Iv) 40 mg IV Q24H [facility] Last Admin: 03/29/19 17:29 Dose: 40 mg Racepinephrine (S-2 2.25%) 0.5 ml NEB Q2H PRN PRN Reason: Shortness of Breath Last Admin: 03/28/19 00:32 Dose: 0.5 ml Scopolamine (Transderm-Scop) 1.5 mg TRDERM Q72H [facility] Last Admin: 03/28/19 10:35 Dose: 1.5 mg Sodium Chloride (Joseph 128 5% Ophth Soln) 0 ml EYEBOTH QID [facility] Last Admin: 03/30/19 05:27 Dose: 1 drop Sodium Chloride (Sodium Chloride 0.9%) 3 ml INH ASDIRECTED PRN PRN Reason: mix with racepinephrine neb Last Admin: 03/28/19 00:35 Dose: 3 ml Discontinued Medications Acetylcysteine (Mucomyst 20%) 400 mg INH BIDRT [facility] Last Admin: 03/12/19 07:48 Dose: 200 mg Acetylcysteine (Mucomyst 20%) 200 mg INH BIDRT [facility] Stop: 03/12/19 23:59 Last Admin: 03/12/19 20:44 Dose: 200 mg Acetylcysteine (Mucomyst 20%) 200 mg NEB BIDRT [facility] Last Admin: 03/27/19 07:06 Dose: 200 mg Atropine Sulfate (Atropine 1%) 0 ml SL BID [facility] Last Admin: 03/29/19 09:06 Dose: 4 drop Bisacodyl (Dulcolax) 10 mg PO BID [facility] Last Admin: 03/17/19 20:35 Dose: Not Given Bisacodyl (Dulcolax) 10 mg RECTAL ONETIME ONE Stop: 03/17/19 17:01 Last Admin: 03/17/19 17:10 Dose: 10 mg Bupivacaine HCl (Marcaine 0.5%) Confirm Administered Dose 50 ml .ROUTE .STK-MED ONE Stop: 03/10/19 06:23 Bupivacaine HCl (Marcaine 0.5%) Confirm Administered Dose 50 ml .ROUTE .STK-MED ONE Stop: 03/11/19 07:19 Last Admin: 03/11/19 07:28 Dose: 15 ml Ropivacaine 36 ml/Dexamethasone 8 mg/Epinephrine HCl 0.4 mg/ Sodium Chloride 41.6 ml 0 ml NERVRT ASDIRECTED [facility] Last Admin: 03/08/19 15:05 Dose: 80 syringe Ropivacaine 36 ml/Dexamethasone 8 mg/Epinephrine HCl 0.4 mg/ Sodium Chloride 41.6 ml 0 ml NERVRT ASDIRECTED [facility] Last Admin: 03/11/19 07:41 Dose: 80 syringe Dexamethasone (Dexamethasone) Confirm Administered Dose 4 mg .ROUTE .STK-MED ONE Stop: 03/08/19 12:18 Diphenhydramine HCl (Benadryl) 25 mg IVPUSH Q6H PRN PRN Reason: Itching Diphenhydramine HCl (Benadryl) 25 mg PO Q6H PRN PRN Reason: Itching Fentanyl (Sublimaze) Confirm Administered Dose 250 mcg .ROUTE .STK-MED ONE Stop: 03/08/19 12:19 Furosemide (Lasix) 20 mg IVPUSH ONETIME ONE Stop: 03/09/19 21:56 Last Admin: 03/09/19 22:10 Dose: 20 mg Furosemide (Lasix) Confirm Administered Dose 20 mg .ROUTE .STK-MED ONE Stop: 03/09/19 22:05 Last Admin: 03/09/19 22:10 Dose: Not Given Furosemide (Lasix) 20 mg IVPUSH ONETIME ONE Stop: 03/10/19 06:33 Last Admin: 03/10/19 07:20 Dose: 20 mg Furosemide (Lasix) 20 mg IVPUSH ONETIME ONE Stop: 03/12/19 18:01 Last Admin: 03/12/19 17:43 Dose: 20 mg Furosemide (Lasix) 20 mg IVPUSH ONETIME ONE Stop: 03/12/19 07:31 Last Admin: 03/12/19 07:44 Dose: 20 mg Furosemide (Lasix) 10 mg IVPUSH Q12H [facility] Stop: 03/13/19 21:01 Last Admin: 03/13/19 20:29 Dose: 10 mg Furosemide (Lasix) 20 mg IVPUSH NOW ONE Stop: 03/15/19 11:31 Last Admin: 03/15/19 11:38 Dose: 20 mg Furosemide (Lasix) 20 mg IVPUSH ONETIME ONE Stop: 03/16/19 13:31 Last Admin: 03/16/19 14:18 Dose: 20 mg Furosemide (Lasix) 20 mg IVPUSH NOW ONE Stop: 03/17/19 09:16 Last Admin: 03/17/19 09:47 Dose: 20 mg Furosemide (Lasix) 20 mg IVPUSH Q12H [facility] Stop: 03/22/19 21:31 Last Admin: 03/22/19 22:10 Dose: 20 mg Furosemide (Lasix) 20 mg IVPUSH Q12H [facility] Stop: 03/23/19 22:01 Last Admin: 03/23/19 22:47 Dose: 20 mg Furosemide (Lasix) 20 mg IVPUSH Q8H [facility] Stop: 03/25/19 02:01 Last Admin: 03/25/19 02:11 Dose: 20 mg Furosemide (Lasix) 20 mg IVPUSH Q12H [facility] Last Admin: 03/25/19 21:32 Dose: 20 mg Furosemide (Lasix) 20 mg IVPUSH Q8H [facility] Last Admin: 03/28/19 09:14 Dose: 20 mg Furosemide (Lasix) 20 mg IVPUSH Q12H [facility] Last Admin: 03/28/19 21:46 Dose: 20 mg Glycopyrrolate (Robinul) Confirm Administered Dose 1 mg .ROUTE .STK-MED ONE Stop: 03/08/19 12:18 Haloperidol Lactate (Haldol) 5 mg IVPUSH BID [facility] Last Admin: 03/09/19 09:06 Dose: 5 mg Heparin Sodium (Porcine) (Heparin Sodium) Confirm Administered Dose 5,000 units .ROUTE .STK-MED ONE Stop: 03/10/19 07:04 Last Admin: 03/10/19 07:57 Dose: Not Given Heparin Sodium (Porcine) (Heparin Lock Flush 100 Units/Ml) Confirm Administered Dose 1,000 units .ROUTE .STK-MED ONE Stop: 03/11/19 07:32 Last Admin: 03/11/19 08:31 Dose: Not Given Heparin Sodium (Porcine) (Heparin Sodium) Confirm Administered Dose 5,000 units .ROUTE .STK-MED ONE Stop: 03/18/19 23:03 Last Admin: 03/19/19 02:36 Dose: Not Given Hydromorphone HCl (Dilaudid Specialties Operator 15 Mg In Ns 30 Ml) 0 mg IV ASDIRECTED PRN; Protocol PRN Reason: PAIN Last Admin: 03/16/19 16:43 Dose: 15 mg Sodium Chloride (Normal Saline) 1,000 mls @ 1,000 mls/hr IV ASDIRECTED [facility] Last Admin: 03/08/19 10:02 Dose: 1,000 mls/hr Ampicillin Sodium/Sulbactam (Sodium 1.5 gm/ Sodium Chloride) 50 mls @ 100 mls/ hr IV Q6H [facility] Last Admin: 03/08/19 13:30 Dose: 100 mls/hr Aztreonam 1 gm/ Sodium (Chloride) 50 mls @ 100 mls/hr IV Q12H [facility] Last Admin: 03/08/19 13:30 Dose: 100 mls/hr Lactated Ringer's (Ringers, Lactated) 1,000 mls @ 150 mls/hr IV ASDIRECTED [facility] Last Admin: 03/08/19 13:31 Dose: 150 mls/hr Lactated Ringer's (Ringers, Lactated) Confirm Administered Dose 1,000 mls @ as directed .ROUTE .STK-MED ONE Stop: 03/08/19 15:16 Lactated Ringer's (Ringers, Lactated) 1,000 mls @ 100 mls/hr IV ASDIRECTED [facility] Last Admin: 03/09/19 03:26 Dose: 100 mls/hr Dextrose/Lactated Ringer's (Dextrose 5%-Lactated Ringers) 1,000 mls @ 100 mls/ hr IV ASDIRECTED [facility] Stop: 03/12/19 11:59 Last Admin: 03/11/19 23:35 Dose: 100 mls/hr Ampicillin Sodium/Sulbactam (Sodium 3 gm/ Sodium Chloride) 100 mls @ 200 mls/ hr IV Q6H [facility] Last Admin: 03/13/19 05:19 Dose: 200 mls/hr Aztreonam 1 gm/ Sodium (Chloride) 50 mls @ 100 mls/hr IV Q8H [facility] Last Admin: 03/13/19 04:23 Dose: 100 mls/hr Potassium Chloride 20 meq/Lidocaine HCl 2 ml/ Sodium Chloride 112 mls @ 56 mls/ hr IV Q2H [facility] Stop: 03/09/19 15:59 Last Admin: 03/09/19 17:30 Dose: 56 mls/hr Lactated Ringer's (Ringers, Lactated) 750 mls @ 750 mls/hr IV BOLUS ONE Stop: 03/09/19 16:25 Last Admin: 03/09/19 15:53 Dose: 750 mls/hr Lactated Ringer's (Ringers, Lactated) 750 mls @ 999 mls/hr IV BOLUS ONE Stop: 03/09/19 21:15 Last Admin: 03/09/19 21:08 Dose: 999 mls/hr Heparin Sodium (Porcine) 5,000 (units/ Sodium Chloride) 501 mls @ 5 mls/hr IV ASDIRECTED [facility] Last Admin: 03/12/19 13:58 Dose: 5 mls/hr Propofol (Diprivan 100 Ml) 100 mls @ 2.191 mls/hr IV TITRATE [facility]; Protocol Last Titration: 03/15/19 07:18 Dose: 0 mcg/kg/min, 0 mls/hr Linezolid 600 mg/ Premix 300 mls @ 300 mls/hr IV Q12H [facility] Last Admin: 03/11/19 21:53 Dose: 300 mls/hr Potassium Chloride 20 meq/Lidocaine HCl 2 ml/ Sodium Chloride 112 mls @ 56 mls/ hr IV Q2H [facility] Stop: 03/10/19 16:29 Last Admin: 03/10/19 16:07 Dose: 56 mls/hr Potassium Chloride 20 meq/ (Premix) 0 mls @ 50 mls/hr IV Q2H [facility] Stop: 03/11/19 07:28 Last Admin: 03/11/19 07:32 Dose: 50 mls/hr Magnesium Sulfate 2 gm/ Premix 50 mls @ 25 mls/hr IV Q6H [facility] Last Admin: 03/12/19 04:27 Dose: 25 mls/hr Potassium Phosphate 20 mmole/ (Sodium Chloride) 256.6667 mls @ 85 mls/hr IV Q3H [facility] Stop: 03/11/19 17:59 Last Admin: 03/11/19 14:42 Dose: 85 mls/hr Multivitamins/Minerals 10 ml/Chromium/Copper/Manganese/Seleni/Zn 1 ml/ Amino Ac/ Electrol/Dextrose/Calcium 1,011 mls @ 82 mls/hr IV .BY DURATION [facility] Last Admin: 03/13/19 12:34 Dose: 82 mls/hr Amino Ac/Electrol/Dextrose/Calcium (Clinimix E 12/08) 1,000 mls @ 82 mls/hr IV .BY DURATION [facility] Last Admin: 03/14/19 01:20 Dose: 82 mls/hr Sodium Chloride (Normal Saline) 1,000 mls @ 20 mls/hr IV ASDIRECTED [facility] Last Admin: 03/13/19 22:58 Dose: 20 mls/hr Potassium Phosphate 20 mmole/ (Sodium Chloride) 256.6667 mls @ 85.556 mls/hr IV Q3H [facility] Stop: 03/12/19 16:59 Last Admin: 03/12/19 14:49 Dose: 85.556 mls/hr Potassium Chloride 20 meq/ (Premix) 100 mls @ 50 mls/hr IV ONETIME ONE Stop: 03/13/19 10:59 Last Admin: 03/13/19 09:29 Dose: 50 mls/hr Potassium Phosphate 30 mmole/ (Sodium Chloride) 110 mls @ 30 mls/hr IV ONETIME ONE Stop: 03/13/19 14:39 Last Admin: 03/13/19 12:14 Dose: 30 mls/hr Linezolid 600 mg/ Premix 300 mls @ 300 mls/hr IV Q12H [facility] Last Admin: 03/20/19 09:52 Dose: 300 mls/hr Magnesium Sulfate 2 gm/ Premix 50 mls @ 25 mls/hr IV Q6H [facility] Stop: 03/16/19 03:59 Last Admin: 03/16/19 01:59 Dose: 25 mls/hr Azithromycin 250 mg/ Sodium (Chloride) 150 mls @ 150 mls/hr IV Q12H [facility] Azithromycin 250 mg/ Sodium (Chloride) 150 mls @ 150 mls/hr IV Q24H [facility] Last Admin: 03/17/19 11:28 Dose: 150 mls/hr Multivitamins/Minerals 10 ml/Chromium/Copper/Manganese/Seleni/Zn 1 ml/ Amino Ac/ Electrol/Dextrose/Calcium 1,011 mls @ 82 mls/hr IV .BY DURATION [facility] Stop: 03/18/19 14:59 Last Admin: 03/17/19 14:26 Dose: 82 mls/hr Amino Ac/Electrol/Dextrose/Calcium (Clinimix E 5/15) 1,000 mls @ 82 mls/hr IV .BY DURATION [facility] Stop: 03/18/19 14:59 Last Admin: 03/18/19 03:38 Dose: 82 mls/hr Multivitamins/Minerals 10 ml/Chromium/Copper/Manganese/Seleni/Zn 1 ml/ Amino Ac/ Electrol/Dextrose/Calcium 1,011 mls @ 80 mls/hr IV .BY DURATION [facility] Last Admin: 03/18/19 16:05 Dose: 40 mls/hr Amino Ac/Electrol/Dextrose/Calcium (Clinimix E 5/15) 1,000 mls @ 40 mls/hr IV .BY DURATION [facility] Piperacillin Sod/Tazobactam (Sod 3.375 gm/ Sodium Chloride) 50 mls @ 100 mls/ hr IV Q6H [facility] Last Admin: 03/19/19 04:17 Dose: 100 mls/hr Sodium Chloride (Normal Saline) Confirm Administered Dose 50 mls @ as directed .ROUTE .STK-MED ONE Stop: 03/18/19 21:35 Last Admin: 03/18/19 21:40 Dose: Not Given Propofol (Diprivan 100 Ml) Confirm Administered Dose 100 mls @ as directed .ROUTE .STK-MED ONE Stop: 03/18/19 23:04 Last Admin: 03/19/19 01:04 Dose: Not Given Propofol (Diprivan 100 Ml) 100 mls @ 2.195 mls/hr IV TITRATE [facility]; Protocol Last Titration: 03/27/19 07:00 Dose: 0 mcg/kg/min, 0 mls/hr Heparin Sodium (Porcine) 5,000 (units/ Sodium Chloride) 501 mls @ 0.1 mls/hr IV ASDIRECTED [facility] Last Admin: 03/27/19 15:35 Dose: 1 units/hr, 0.1 mls/hr Sodium Chloride (Normal Saline) 500 mls @ 999 mls/hr IV .BOLUS ONE Stop: 03/19/19 00:00 Last Admin: 03/19/19 00:00 Dose: 999 mls/hr Sodium Chloride (Normal Saline) 100 mls @ 4 mls/sec IV ASDIRECTED [facility] Stop: 03/19/19 10:00 Last Admin: 03/19/19 07:45 Dose: 4 mls/sec Multivitamins/Minerals 10 ml/Chromium/Copper/Manganese/Seleni/Zn 1 ml/ Amino Ac/ Electrol/Dextrose/Calcium 1,011 mls @ 80 mls/hr IV .BY DURATION [facility] Stop: 03/19/19 20:00 Amino Ac/Electrol/Dextrose/Calcium (Clinimix E 5/15) 1,000 mls @ 80 mls/hr IV .BY DURATION [facility] Stop: 03/19/19 20:00 Last Admin: 03/19/19 08:12 Dose: 80 mls/hr Piperacillin/Tazobactam/ (Dextrose 3.375 gm/ Premix) 50 mls @ 100 mls/hr IV Q6H [facility] Last Admin: 03/25/19 09:29 Dose: 100 mls/hr Multivitamins/Minerals 10 ml/Chromium/Copper/Manganese/Seleni/Zn 1 ml/ Amino Ac/ Electrol/Dextrose/Calcium 1,011 mls @ 82 mls/hr IV .BY DURATION [facility] Stop: 03/23/19 20:00 Last Admin: 03/22/19 21:45 Dose: 82 mls/hr Amino Ac/Electrol/Dextrose/Calcium (Clinimix E 5/15) 1,000 mls @ 82 mls/hr IV .BY DURATION [facility] Stop: 03/23/19 20:00 Last Admin: 03/23/19 11:17 Dose: Not Given Albumin Human (Albumin 25%) 25 gm in 100 mls @ 25 mls/hr IV Q24H [facility] Stop: 03/23/19 11:59 Last Admin: 03/23/19 08:20 Dose: 25 mls/hr Albumin Human (Albumin 25%) 25 gm in 100 mls @ 25 mls/hr IV Q24H [facility] Stop: 03/23/19 15:59 Last Admin: 03/23/19 11:22 Dose: 25 mls/hr Azithromycin 250 mg/ Sodium (Chloride) 150 mls @ 150 mls/hr IV Q24H [facility] Last Admin: 03/24/19 11:55 Dose: 150 mls/hr Potassium Chloride 20 meq/ (Premix) 100 mls @ 50 mls/hr IV ONETIME ONE Stop: 03/21/19 10:59 Last Admin: 03/21/19 09:29 Dose: 50 mls/hr Potassium Chloride 40 meq/ (Premix) 100 mls @ 25 mls/hr IV ONETIME ONE Stop: 03/22/19 13:59 Last Admin: 03/22/19 10:01 Dose: 25 mls/hr Magnesium Sulfate 2 gm/ Premix 50 mls @ 25 mls/hr IV Q6H [facility] Stop: 03/26/19 03:59 Last Admin: 03/24/19 08:07 Dose: 25 mls/hr Potassium Chloride 40 meq/ (Premix) 100 mls @ 25 mls/hr IV ONETIME ONE Stop: 03/23/19 13:59 Last Admin: 03/23/19 09:22 Dose: 25 mls/hr Potassium Chloride 40 meq/ (Premix) 100 mls @ 25 mls/hr IV ONETIME ONE Stop: 03/24/19 13:59 Last Admin: 03/24/19 09:54 Dose: 25 mls/hr Potassium Chloride 40 meq/ (Premix) 100 mls @ 25 mls/hr IV ONETIME ONE Stop: 03/25/19 13:59 Last Admin: 03/25/19 10:32 Dose: 25 mls/hr Magnesium Sulfate 2 gm/ Premix 50 mls @ 25 mls/hr IV Q6H [facility] Stop: 03/30/19 03:59 Last Admin: 03/30/19 03:14 Dose: 25 mls/hr Insulin Glargine (Lantus Solostar) 10 units SUBCUT BID [facility] Last Admin: 03/16/19 09:27 Dose: 10 unit Insulin Glargine (Lantus Solostar) 14 units SUBCUT BID [facility] Last Admin: 03/18/19 09:06 Dose: 14 units Insulin Glargine (Lantus Solostar) 7 units SUBCUT BID [facility] Stop: 03/18/19 21:01 Last Admin: 03/18/19 21:25 Dose: Not Given Insulin Human Lispro (Humalog) 0 unit SUBCUT Q6H PRN; Protocol PRN Reason: MEDIUM CORRECTIONAL DOSING Last Admin: 03/14/19 17:42 Dose: 7 units Insulin Human Lispro (Humalog) 15 unit SUBCUT ONETIME ONE Stop: 03/14/19 12:05 Last Admin: 03/14/19 12:10 Dose: 15 units Insulin Human Lispro (Humalog) 0 unit SUBCUT ONETIME ONE Stop: 03/15/19 00:16 Last Admin: 03/15/19 00:25 Dose: 12 units Iopamidol (Isovue-370 (76%)) 100 ml IV . DIRECTED [facility] Stop: 03/19/19 10:00 Last Admin: 03/19/19 07:45 Dose: 100 ml Lidocaine HCl (Xylocaine-Mpf 1%) 5 ml INJECT ONETIME ONE Stop: 03/11/19 05:30 Last Admin: 03/11/19 05:39 Dose: 2 ml Lidocaine/Epinephrine (Xylocaine 1% With Epinephrine 1:100,000) Confirm Administered Dose 50 ml .ROUTE .STK-MED ONE Stop: 03/10/19 06:23 Lidocaine/Epinephrine (Xylocaine 1% With Epinephrine 1:100,000) Confirm Administered Dose 50 ml .ROUTE .STK-MED ONE Stop: 03/11/19 07:19 Last Admin: 03/11/19 07:28 Dose: 15 ml Linezolid (Zyvox) 600 mg IRR .STK-MED ONE Stop: 03/11/19 07:39 Last Admin: 03/11/19 07:38 Dose: 600 mg Lorazepam (Ativan) 0.5 mg IVPUSH BID [facility] Last Admin: 03/09/19 09:09 Dose: 0.5 mg Lorazepam (Ativan) 0.5 mg IVPUSH Q4H PRN PRN Reason: Anxiety Last Admin: 03/27/19 10:07 Dose: 0.5 mg Lorazepam (Ativan) 0.25 mg IVPUSH BID [facility] Last Admin: 03/10/19 09:09 Dose: 0.25 mg Meropenem (Merrem) Confirm Administered Dose 500 mg .ROUTE .STK-MED ONE Stop: 03/08/19 12:05 Last Admin: 03/08/19 14:00 Dose: 500 mg Meropenem (Merrem) Confirm Administered Dose 500 mg .ROUTE .STK-MED ONE Stop: 03/10/19 06:23 Meropenem (Merrem) Confirm Administered Dose 500 mg .ROUTE .STK-MED ONE Stop: 03/11/19 06:45 Last Admin: 03/11/19 07:38 Dose: 500 mg Methylprednisolone Sodium Succinate (Solu-Medrol) 40 mg IVPUSH Q6H [facility] Last Admin: 03/20/19 09:50 Dose: 40 mg Metoprolol Tartrate (Lopressor) 5 mg IV Q6H [facility] Last Admin: 03/26/19 07:56 Dose: Not Given Metoprolol Tartrate (Lopressor) 2.5 mg IV Q6H [facility] Last Admin: 03/29/19 05:23 Dose: 2.5 mg Neostigmine Methylsulfate (Neostigmine) Confirm Administered Dose 5 mg .ROUTE .STK-MED ONE Stop: 03/08/19 12:18 Non-Formulary Medication (Total Parenteral Nutrition, Central) 1,000 ml .XX .Continue Order [facility] Stop: 03/22/19 12:00 Non-Formulary Medication (Total Parenteral Nutrition, Central) 1,000 ml .XX .Continue Order [facility] Stop: 03/23/19 12:00 Non-Formulary Medication (Total Parenteral Nutrition, Central) 1,000 ml .XX .Continue Order [facility] Stop: 03/24/19 15:00 Non-Formulary Medication (Total Parenteral Nutrition, Central) 1,000 ml .XX .Continue Order [facility] Stop: 03/26/19 12:00 Ondansetron HCl (Zofran) Confirm Administered Dose 4 mg .ROUTE .STK-MED ONE Stop: 03/08/19 12:18 Ondansetron HCl (Zofran) 4 mg IVPUSH Q6H PRN PRN Reason: Nausea/Vomiting Piperacillin Sod/Tazobactam Sod (Zosyn) Confirm Administered Dose 3.375 gm .ROUTE .STK-MED ONE Stop: 03/18/19 21:34 Last Admin: 03/18/19 21:40 Dose: Not Given Propofol (Diprivan 20 Ml) Confirm Administered Dose 200 mg .ROUTE .STK-MED ONE Stop: 03/08/19 12:18 Propofol (Diprivan 20 Ml) Confirm Administered Dose 200 mg .ROUTE .STK-MED ONE Stop: 03/10/19 07:33 Rocuronium [place] (Zemuron) Confirm Administered Dose 50 mg .ROUTE .STK-MED ONE Stop: 03/08/19 12:18 Succinylcholine Chloride (Quelicin) Confirm Administered Dose 200 mg .ROUTE .STK -MED ONE Stop: 03/08/19 12:18 Succinylcholine Chloride (Quelicin) Confirm Administered Dose 200 mg .ROUTE .STK -MED ONE Stop: 03/10/19 07:33 - Exam Quality Assessment: Supplemental Oxygen, Central Line/PICC, DVT Prophylaxis. No : Urine Catheter General: Alert, Cooperative Lungs: Clear to Auscultation, Normal Respiratory Effort Cardiovascular: Regular Rate, Regular Rhythm, No Murmurs GI/Abdominal Exam: Soft, Non-Tender, No Organomegaly, No Distention Extremities: Non-Tender, No Pedal Edema - Problem List Review Problem List Initiated/Reviewed/Updated: Yes - My Orders Last 24 Hours: My Active Orders 03/29/19 10:00 Metoprolol Tartrate [Lopressor] 5 mg IV Q6H 03/29/19 14:58 Consult to PICC Team [CONS] Routine Central Venous Line Insertion [OM.PC] Routine 03/29/19 15:00 NG [Gastrointestinal Tube Mgmt] [RC] Q12H NG [Nasogastric Orogastric Tube Insertion] [OM.PC] Routine 03/29/19 16:00 Meropenem [Merrem] 1 gm Sodium Chloride 0.9% [Normal Saline] 50 ml IV Q8H methylPREDNISolone Sod Succ [Solu-MEDROL] 40 mg IVPUSH Q6H 03/29/19 22:00 Nystatin [Nystop] See Dose Instructions TOP QID 03/31/19 05:00 CBC WITH AUTO DIFF [HEME] Timed COMPREHENSIVE METABOLIC PN,CMP [CHEM] Timed MAGNESIUM [CHEM] Timed PHOSPHORUS [CHEM] Timed - Plan Plan:: ASSESSMENT AND PLAN - Acute respiratory failure with hypoxia and hypercapnia - Overall fairly stable since extubation 3 days ago, continues to require significant assistance in management of secretions. Episode of vomiting yesterday with no obvious aspiration -Racemic epinephrine nebulizer as needed for stridor and laryngeal spasm -Supplement oxygen, consider NIPPV if needed -Diuresis -Vigorous pulmonary toilet -Remove arterial line and Rodriguez catheter -Consider replacement of central line, currently on day 9 -Continue meropenem and Solu-Medrol and additional 24 hours Small bowel obstruction with pneumatosis - status post emergent laparotomy with small bowel resection and right colectomy 03/08. Abdomen not distended. He is having bowel movements. Episode of vomiting yesterday -Continue NG tube -CT scan abdomen and pelvis today -Postoperative care per surgical team -He is receiving TPN -Pain control Type 2 diabetes mellitus - blood sugar levels have remained in goal range. -Continue glucometers every 6 hours -Continue insulin in the TPN -High dose sliding scale Humalog Hypokalemia - potassium level normal today. -Recheck in the morning Severe schizophrenia - patient is very debilitated because of his psychiatric illness. Now that he is extubated hopefully we can get his regular medications on board in the near future. -Continue low-dose Haldol -Continue regular dose Depakote -low dose lorazepam -Restart oral medications when able Acute kidney injury - resolved -Continue to closely monitor urine output and renal function Maintenance issues - - DVT prophylaxis - mechanical - GI prophylaxis - IV PPI - Nutrition - nothing by mouth, currently receiving TPN for nutritional support. We may try some liquids and medications later in the day - Rodriguez catheter - placed for strict intake and output monitoring with a critical patient Disposition - anticipate discharge home versus more likely the residential. the patient's hospital stay has been greatly prolonged by multiple unforeseen complications including prolonged return of bowel function postoperatively, aspiration leading to respiratory failure and reintubation.
[2019-03-30] MEDS ORDERED: Sodium Chloride 0.9% 10 ML Syringe FLUSH ONE (10:01)
[2019-03-30] MEDS ORDERED: Sodium Chloride 0.9% 75 ML IV SCH (10:15)
[2019-03-30] MEDS ORDERED: Iohexol 647 MG/ML 100 ML Bottle IVPUSH SCH (10:15)
[2019-03-30] MEDS ORDERED: Sodium Chloride 0.9% 100 ML IV ONE (10:26)
[2019-03-30] MEDS ORDERED: Sodium Chloride 0.9% 10 ML Syringe FLUSH PRN (10:26)
[2019-03-30] MEDS ORDERED: Iopamidol 612 MG/ML 100 ML Bottle IV PRN (10:26)
--- NOTE | 2019-03-30 11:38 | CRLCT ---
INDICATION: Vomiting. Possible aspiration. TECHNIQUE: A CT volumetric acquisition was performed of the abdomen and pelvis during intravenous infusion of 100 ccs of Isovue -370 nonionic intravenous contrast. COMPARISON: none FINDINGS: Unfortunately the IV contrast infiltrated within the soft tissues of the left upper arm and the study lacks intravenous contrast. Pulmonary emboli cannot be excluded. There is inflammatory bronchial wall thickening and patchy peribronchial airspace opacities within both lungs with sparing of the left upper lobe. There is a small right pleural effusion. There are few small lymph nodes within the central mediastinum but these do not appear malignant in nature. There is a right-sided central venous catheter extending to the SVC. A nasogastric decompression tube traverses the esophagus and terminates within the gastric antrum. There is no evidence of pericardial fluid. Pulmonary vasculature appears normal in size with no evidence of CHF. Within the abdomen the unenhanced liver, spleen and pancreas appear normal. Gallbladder is contracted. The bile ducts are normal in size. The kidneys and adrenal glands appear normal. There is no evidence of retroperitoneal bleeding or lymph node enlargement. There is no evidence of obstruction within the remaining small intestine. No acute inflammatory changes are noted about the anastomotic suture lines. There is fluid accumulation within the left colon but no evidence of focal obstruction or acute inflammation. The prostate gland and urinary bladder appear normal. There is laxity of both inguinal canals with protrusion of fat. IMPRESSION: Inflammatory changes within the central lung lewis which would be consistent with aspiration pneumonia. No acute process noted within the abdomen and pelvis. Please note that all CT scans at this facility use dose modulation, iterative reconstruction, and/or weight-based dosing when appropriate to reduce radiation dose to as low as reasonably achievable. Dictated by Evan Navas MD @ Mar 30 2019 11:22AM Signed by Dr. Evan Navas @ Mar 30 2019 11:36AM
[2019-03-30] MEDS ORDERED: diphenhydrAMINE/Zinc Acetate 2% Crm 28.4 GM Tube TOP PRN (17:38)
[2019-03-30] MEDS: Pantoprazole 40 MG Vial IV SCH (17:44)
[2019-03-30] MEDS: Latanoprost 0.005% Ophth Soln 2.5 ML Bottle EYEBOTH SCH (20:46)
[2019-03-30] MEDS: diphenhydrAMINE 50 MG/ML SDV IVPUSH PRN (21:06)
[2019-03-30] MEDS: Sodium Chloride 0.9% 1,000 ML IV SCH (23:53)
[2019-03-31] MEDS: LORazepam 2 MG/ML SDV IVPUSH PRN (01:22)
[2019-03-31] MEDS: Morphine 2 MG/ML Syringe IVPUSH PRN (01:30)
[2019-03-31] MEDS: 1: AA 5%/Calcium/D15W/Lytes 1,000 ML with MVI, Adult with Vitamin K 10 ML, Chromium/Copp IV SCH ×6 (01:32→14:10)
[2019-03-31] MEDS: diphenhydrAMINE 50 MG/ML SDV IVPUSH PRN ×3 (01:32→21:32)
[2019-03-31] MEDS: methylPREDNISolone Sodium Succinate 40 MG/1 ML SDV IVPUSH SCH ×4 (04:46→21:34)
[2019-03-31] MEDS: Metoprolol Tartrate 5 MG/5 ML SDV IV SCH (04:53)
[2019-03-31] MEDS: Nystatin Topical Powder 15 GM Bottle TOP SCH ×5 (06:10→21:18)
[2019-03-31] MEDS: Sodium Chloride 5% Ophth Soln 15 ML Bottle EYEBOTH SCH ×4 (06:11→21:20)
[2019-03-31] MEDS: Albuterol/Ipratropium 3.0-0.5 MG/3 ML Neb Soln INH SCH ×4 (06:58→20:02)
[2019-03-31] MEDS: Levothyroxine 100 MCG Vial IVPUSH SCH (08:33)
[2019-03-31] MEDS: Haloperidol Lactate 5 MG/ML SDV IVPUSH SCH (08:37)
[2019-03-31] MEDS: Docusate Sodium 100 MG Cap PO SCH ×3 (08:40→20:04)
[2019-03-31] MEDS: SCOPOLAMINE PATCH CHECK TOP SCH (08:42)
--- NOTE | 2019-03-31 09:11 | PCM.PN ---
- General Info Date of Service: 03/31/19 Subjective Update: Mr. Perez has remained fairly stable since yesterday, no significant temperature elevations, vital signs have remained stable. He is more alert and interactive, still not able to provide specific information concerning symptoms or review of systems. CT scan of the chest abdomen pelvis obtained yesterday, showed evidence of aspiration in the lung lewis. No significant abnormalities identified in the abdomen and pelvis to explain ongoing difficulty with eating. - Patient Data Vitals - Most Recent: Last Vital Signs Temp 98.1 F 03/31/19 04:00 Pulse 95 03/31/19 06:58 Resp 14 03/31/19 06:00 BP 172/88 H 03/31/19 06:00 Pulse Ox 96 03/31/19 06:00 Weight - Most Recent: 155 lb 6.814 oz I&O - Last 24 Hours: Intake & Output 03/30/19 03/31/19 03/31/19 22:59 06:59 14:59 Intake Total 1199 1289 Output Total 400 Balance 799 1289 Lab Results Last 24 Hours: Laboratory Results - last 24 hr 03/31/19 03/31/19 Range/Units 04:00 04:00 WBC 11.9 H (4.5-11.0) K/uL RBC 3.25 L (4.30-5.90) M/uL Hgb 9.3 L (12.0-15.0) g/dL Hct 30.5 L (40.0-54.0) % MCV 94 (80-98) fL MCH 29 (27-31) pg MCHC 31 L (32-36) % Plt Count 469 H (150-400) K/uL Neut % (Auto) 77 H (36-66) % Lymph % (Auto) 13 L (24-44) % [place] % (Auto) 10 H (2-6) % Eos % (Auto) 0 L (2-4) % Baso % (Auto) 0 (0-1) % Sodium 147 (140-148) mmol/L Potassium 4.8 (3.6-5.2) mmol/L Chloride 110 H (100-108) mmol/L Carbon Dioxide 28 (21-32) mmol/L Anion Gap 13.8 (5.0-14.0) mmol/L BUN 41 H (7-18) mg/dL Creatinine 0.8 (0.8-1.3) mg/dL Est Cr Clr Drug Dosing 84.28 mL/min Estimated GFR (MDRD) > 60 (>60) Glucose 128 H (74-106) mg/dL Calcium 9.1 (8.5-10.1) mg/dL Phosphorus 4.9 (2.5-4.9) mg/dL Magnesium 2.3 (1.8-2.4) mg/dL Total Bilirubin 0.5 (0.2-1.0) mg/dL AST 33 (15-37) U/L ALT 37 D (12-78) U/L Alkaline Phosphatase 230 H (46-116) U/L Total Protein 6.7 (6.4-8.2) g/dL Albumin 3.1 L (3.4-5.0) g/dL Globulin 3.6 H (2.3-3.5) g/dL Albumin/Globulin Ratio 0.9 L (1.2-2.2) Med Orders - Current: Current Medications Albuterol (Proventil Neb Soln) 2.5 mg NEB Q4H PRN PRN Reason: Shortness Of Breath/wheezing Last Admin: 03/10/19 00:24 Dose: 2.5 mg Albuterol/Ipratropium (Duoneb 3.0-0.5 Mg/3 Ml) 3 ml INH QIDRT [facility] Last Admin: 03/31/19 06:58 Dose: 3 ml Dextrose (Glutose 15) 15 gm PO ASDIRECTED PRN PRN Reason: HYPOGLYCEMIA Dextrose/Water (Dextrose 50% In Water) 50 ml IVPUSH ASDIRECTED PRN PRN Reason: HYPOGLYCEMIA Diphenhydramine HCl (Benadryl) 25 mg IVPUSH Q4H PRN PRN Reason: Itching Last Admin: 03/31/19 01:32 Dose: 25 mg Divalproex Sodium (Divalproex Sodium) 1,500 mg PO BEDTIME [facility] Docusate Sodium (Colace) 100 mg PO BID [facility] Last Admin: 03/31/19 08:40 Dose: Not Given Glucagon (Glucagen) 1 mg IM ASDIRECTED PRN PRN Reason: HYPOGLYCEMIA Haloperidol Lactate (Haldol) 2 mg IVPUSH Q4H PRN PRN Reason: Agitation Last Admin: 03/27/19 16:15 Dose: 2 mg Heparin Sodium (Porcine) (Heparin Lock Flush 100 Units/Ml) 500 units FLUSH ASDIRECTED PRN PRN Reason: Keep Vein Open Last Admin: 03/31/19 00:00 Dose: 500 units Multivitamins/Minerals 10 ml/Chromium/Copper/Manganese/Seleni/Zn 1 ml/ Amino Ac/ Electrol/Dextrose/Calcium 1,011 mls @ 82 mls/hr IV .BY DURATION [facility] Last Admin: 03/31/19 01:32 Dose: 82 mls/hr Amino Ac/Electrol/Dextrose/Calcium (Clinimix E 5/15) 1,000 mls @ 82 mls/hr IV .BY DURATION [facility] Last Admin: 03/30/19 13:08 Dose: 82 mls/hr Meropenem 1 gm/ Sodium (Chloride) 50 mls @ 100 mls/hr IV Q8H [facility] Last Admin: 03/31/19 08:03 Dose: 100 mls/hr Insulin Glargine (Lantus Solostar) 12 units SUBCUT BID [facility] Last Admin: 03/30/19 20:48 Dose: 12 units Insulin Human Lispro (Humalog) 0 unit SUBCUT ASDIRECTED [facility]; Protocol Last Admin: 03/30/19 08:50 Dose: 3 units Latanoprost (Xalatan 0.005% Ophth Soln) 0 ml EYEBOTH BEDTIME [facility] Last Admin: 03/30/19 20:46 Dose: 1 drop Lorazepam (Ativan) 1 mg IVPUSH Q1H PRN PRN Reason: Anxiety Last Admin: 03/31/19 01:22 Dose: 1 mg Methylprednisolone Sodium Succinate (Solu-Medrol) 40 mg IVPUSH Q6H [facility] Last Admin: 03/31/19 04:46 Dose: 40 mg Metoprolol Tartrate (Lopressor) 5 mg IV Q6H [facility] Last Admin: 03/31/19 04:53 Dose: 5 mg Morphine Sulfate (Morphine) 2 mg IVPUSH Q1H PRN PRN Reason: Other Last Admin: 03/31/19 01:30 Dose: 2 mg Scopolamine Patch (Check) 1 each TOP DAILY [facility] Last Admin: 03/31/19 08:42 Dose: Not Given Non-Formulary Medication (Atenolol [Atenolol]) 100 mg PO DAILY [facility] Non-Formulary Medication (Clozapine [Clozapine]) 450 mg PO QPM [facility] Nystatin (Nystop) 0 gm TOP QID [facility] Last Admin: 03/31/19 06:10 Dose: 1 applic Ondansetron HCl (Zofran) 4 mg IVPUSH Q4H PRN PRN Reason: Nausea/Vomiting Last Admin: 03/18/19 17:31 Dose: 4 mg Racepinephrine (S-2 2.25%) 0.5 ml NEB Q2H PRN PRN Reason: Shortness of Breath Last Admin: 03/28/19 00:32 Dose: 0.5 ml Sodium Chloride (Joseph 128 5% Ophth Soln) 0 ml EYEBOTH QID [facility] Last Admin: 03/31/19 06:11 Dose: 1 drop Sodium Chloride (Sodium Chloride 0.9%) 3 ml INH ASDIRECTED PRN PRN Reason: mix with racepinephrine neb Last Admin: 03/28/19 00:35 Dose: 3 ml Zinc Acetate/Diphenhydramine (Banophen Anti-Itch 2% Crm) 0 gm TOP QID PRN PRN Reason: Perineal Comfort Measure Discontinued Medications Acetylcysteine (Mucomyst 20%) 400 mg INH BIDRT [facility] Last Admin: 03/12/19 07:48 Dose: 200 mg Acetylcysteine (Mucomyst 20%) 200 mg INH BIDRT [facility] Stop: 03/12/19 23:59 Last Admin: 03/12/19 20:44 Dose: 200 mg Acetylcysteine (Mucomyst 20%) 200 mg NEB BIDRT [facility] Last Admin: 03/27/19 07:06 Dose: 200 mg Atropine Sulfate (Atropine 1%) 0 ml SL BID [facility] Last Admin: 03/29/19 09:06 Dose: 4 drop Bisacodyl (Dulcolax) 10 mg PO BID [facility] Last Admin: 03/17/19 20:35 Dose: Not Given Bisacodyl (Dulcolax) 10 mg RECTAL ONETIME ONE Stop: 03/17/19 17:01 Last Admin: 03/17/19 17:10 Dose: 10 mg Bupivacaine HCl (Marcaine 0.5%) Confirm Administered Dose 50 ml .ROUTE .STK-MED ONE Stop: 03/10/19 06:23 Bupivacaine HCl (Marcaine 0.5%) Confirm Administered Dose 50 ml .ROUTE .STK-MED ONE Stop: 03/11/19 07:19 Last Admin: 03/11/19 07:28 Dose: 15 ml Ropivacaine 36 ml/Dexamethasone 8 mg/Epinephrine HCl 0.4 mg/ Sodium Chloride 41.6 ml 0 ml NERVRT ASDIRECTED [facility] Last Admin: 03/08/19 15:05 Dose: 80 syringe Ropivacaine 36 ml/Dexamethasone 8 mg/Epinephrine HCl 0.4 mg/ Sodium Chloride 41.6 ml 0 ml NERVRT ASDIRECTED [facility] Last Admin: 03/11/19 07:41 Dose: 80 syringe Dexamethasone (Dexamethasone) Confirm Administered Dose 4 mg .ROUTE .STK-MED ONE Stop: 03/08/19 12:18 Dimethicone/Zinc Oxide (Rash Relief-Zinc Oxide [place]) 0 gm TOP ASDIRECTED PRN PRN Reason: Perineal Comfort Measure Last Admin: 03/29/19 15:40 Dose: 6 spray Diphenhydramine HCl (Benadryl) 25 mg IVPUSH Q6H PRN PRN Reason: Itching Diphenhydramine HCl (Benadryl) 25 mg PO Q6H PRN PRN Reason: Itching Fentanyl (Sublimaze) Confirm Administered Dose 250 mcg .ROUTE .STK-MED ONE Stop: 03/08/19 12:19 Furosemide (Lasix) 20 mg IVPUSH ONETIME ONE Stop: 03/09/19 21:56 Last Admin: 03/09/19 22:10 Dose: 20 mg Furosemide (Lasix) Confirm Administered Dose 20 mg .ROUTE .STK-MED ONE Stop: 03/09/19 22:05 Last Admin: 03/09/19 22:10 Dose: Not Given Furosemide (Lasix) 20 mg IVPUSH ONETIME ONE Stop: 03/10/19 06:33 Last Admin: 03/10/19 07:20 Dose: 20 mg Furosemide (Lasix) 20 mg IVPUSH ONETIME ONE Stop: 03/12/19 18:01 Last Admin: 03/12/19 17:43 Dose: 20 mg Furosemide (Lasix) 20 mg IVPUSH ONETIME ONE Stop: 03/12/19 07:31 Last Admin: 03/12/19 07:44 Dose: 20 mg Furosemide (Lasix) 10 mg IVPUSH Q12H [facility] Stop: 03/13/19 21:01 Last Admin: 03/13/19 20:29 Dose: 10 mg Furosemide (Lasix) 20 mg IVPUSH NOW ONE Stop: 03/15/19 11:31 Last Admin: 03/15/19 11:38 Dose: 20 mg Furosemide (Lasix) 20 mg IVPUSH ONETIME ONE Stop: 03/16/19 13:31 Last Admin: 03/16/19 14:18 Dose: 20 mg Furosemide (Lasix) 20 mg IVPUSH NOW ONE Stop: 03/17/19 09:16 Last Admin: 03/17/19 09:47 Dose: 20 mg Furosemide (Lasix) 20 mg IVPUSH Q12H [facility] Stop: 03/22/19 21:31 Last Admin: 03/22/19 22:10 Dose: 20 mg Furosemide (Lasix) 20 mg IVPUSH Q12H [facility] Stop: 03/23/19 22:01 Last Admin: 03/23/19 22:47 Dose: 20 mg Furosemide (Lasix) 20 mg IVPUSH Q8H [facility] Stop: 03/25/19 02:01 Last Admin: 03/25/19 02:11 Dose: 20 mg Furosemide (Lasix) 20 mg IVPUSH Q12H [facility] Last Admin: 03/25/19 21:32 Dose: 20 mg Furosemide (Lasix) 20 mg IVPUSH Q8H [facility] Last Admin: 03/28/19 09:14 Dose: 20 mg Furosemide (Lasix) 20 mg IVPUSH Q12H [facility] Last Admin: 03/28/19 21:46 Dose: 20 mg Glycopyrrolate (Robinul) Confirm Administered Dose 1 mg .ROUTE .STK-MED ONE Stop: 03/08/19 12:18 Haloperidol Lactate (Haldol) 5 mg IVPUSH BID [facility] Last Admin: 03/09/19 09:06 Dose: 5 mg Haloperidol Lactate (Haldol) 2.5 mg IVPUSH BID [facility] Last Admin: 03/31/19 08:37 Dose: 2.5 mg Heparin Sodium (Porcine) (Heparin Sodium) Confirm Administered Dose 5,000 units .ROUTE .STK-MED ONE Stop: 03/10/19 07:04 Last Admin: 03/10/19 07:57 Dose: Not Given Heparin Sodium (Porcine) (Heparin Lock Flush 100 Units/Ml) Confirm Administered Dose 1,000 units .ROUTE .STK-MED ONE Stop: 03/11/19 07:32 Last Admin: 03/11/19 08:31 Dose: Not Given Heparin Sodium (Porcine) (Heparin Sodium) Confirm Administered Dose 5,000 units .ROUTE .[facility] ONE Stop: 03/18/19 23:03 Last Admin: 03/19/19 02:36 Dose: Not Given Hydromorphone HCl (Dilaudid [employer] [facility] 15 Mg In Ns 30 Ml) 0 mg IV ASDIRECTED PRN; Protocol PRN Reason: PAIN Last Admin: 03/16/19 16:43 Dose: 15 mg Sodium Chloride (Normal Saline) 1,000 mls @ 1,000 mls/hr IV ASDIRECTED [facility] Last Admin: 03/08/19 10:02 Dose: 1,000 mls/hr Ampicillin Sodium/Sulbactam (Sodium 1.5 gm/ Sodium Chloride) 50 mls @ 100 mls/ hr IV Q6H [facility] Last Admin: 03/08/19 13:30 Dose: 100 mls/hr Aztreonam 1 gm/ Sodium (Chloride) 50 mls @ 100 mls/hr IV Q12H [facility] Last Admin: 03/08/19 13:30 Dose: 100 mls/hr Lactated Ringer's (Ringers, Lactated) 1,000 mls @ 150 mls/hr IV ASDIRECTED [facility] Last Admin: 03/08/19 13:31 Dose: 150 mls/hr Lactated Ringer's (Ringers, Lactated) Confirm Administered Dose 1,000 mls @ as directed .ROUTE .[facility] ONE Stop: 03/08/19 15:16 Lactated Ringer's (Ringers, Lactated) 1,000 mls @ 100 mls/hr IV ASDIRECTED [facility] Last Admin: 03/09/19 03:26 Dose: 100 mls/hr Dextrose/Lactated Ringer's (Dextrose 5%-Lactated Ringers) 1,000 mls @ 100 mls/ hr IV ASDIRECTED [facility] Stop: 03/12/19 11:59 Last Admin: 03/11/19 23:35 Dose: 100 mls/hr Ampicillin Sodium/Sulbactam (Sodium 3 gm/ Sodium Chloride) 100 mls @ 200 mls/ hr IV Q6H [facility] Last Admin: 03/13/19 05:19 Dose: 200 mls/hr Aztreonam 1 gm/ Sodium (Chloride) 50 mls @ 100 mls/hr IV Q8H [facility] Last Admin: 03/13/19 04:23 Dose: 100 mls/hr Valproic Acid 500 mg/ Sodium (Chloride) 55 mls @ 55 mls/hr IV Q8H [facility] Last Admin: 03/31/19 04:58 Dose: 55 mls/hr Potassium Chloride 20 meq/Lidocaine HCl 2 ml/ Sodium Chloride 112 mls @ 56 mls/ hr IV Q2H [facility] Stop: 03/09/19 15:59 Last Admin: 03/09/19 17:30 Dose: 56 mls/hr Lactated Ringer's (Ringers, Lactated) 750 mls @ 750 mls/hr IV [facility] ONE Stop: 03/09/19 16:25 Last Admin: 03/09/19 15:53 Dose: 750 mls/hr Lactated Ringer's (Ringers, Lactated) 750 mls @ 999 mls/hr IV [facility] ONE Stop: 03/09/19 21:15 Last Admin: 03/09/19 21:08 Dose: 999 mls/hr Heparin Sodium (Porcine) 5,000 (units/ Sodium Chloride) 501 mls @ 5 mls/hr IV ASDIRECTED [facility] Last Admin: 03/12/19 13:58 Dose: 5 mls/hr Propofol (Diprivan 100 Ml) 100 mls @ 2.191 mls/hr IV TITRATE [facility]; Protocol Last Titration: 03/15/19 07:18 Dose: 0 mcg/kg/min, 0 mls/hr Linezolid 600 mg/ Premix 300 mls @ 300 mls/hr IV Q12H [facility] Last Admin: 03/11/19 21:53 Dose: 300 mls/hr Potassium Chloride 20 meq/Lidocaine HCl 2 ml/ Sodium Chloride 112 mls @ 56 mls/ hr IV Q2H [facility] Stop: 03/10/19 16:29 Last Admin: 03/10/19 16:07 Dose: 56 mls/hr Potassium Chloride 20 meq/ (Premix) 0 mls @ 50 mls/hr IV Q2H [facility] Stop: 03/11/19 07:28 Last Admin: 03/11/19 07:32 Dose: 50 mls/hr Magnesium Sulfate 2 gm/ Premix 50 mls @ 25 mls/hr IV Q6H [facility] Last Admin: 03/12/19 04:27 Dose: 25 mls/hr Potassium Phosphate 20 mmole/ (Sodium Chloride) 256.6667 mls @ 85 mls/hr IV Q3H [facility] Stop: 03/11/19 17:59 Last Admin: 03/11/19 14:42 Dose: 85 mls/hr Multivitamins/Minerals 10 ml/Chromium/Copper/Manganese/Seleni/Zn 1 ml/ Amino Ac/ Electrol/Dextrose/Calcium 1,011 mls @ 82 mls/hr IV .BY DURATION [facility] Last Admin: 03/13/19 12:34 Dose: 82 mls/hr Amino Ac/Electrol/Dextrose/Calcium (Clinimix E 15) 1,000 mls @ 82 mls/hr IV .BY DURATION [facility] Last Admin: 03/14/19 01:20 Dose: 82 mls/hr Sodium Chloride (Normal Saline) 1,000 mls @ 20 mls/hr IV ASDIRECTED [facility] Last Admin: 03/13/19 22:58 Dose: 20 mls/hr Potassium Phosphate 20 mmole/ (Sodium Chloride) 256.6667 mls @ 85.556 mls/hr IV Q3H [facility] Stop: 03/12/19 16:59 Last Admin: 03/12/19 14:49 Dose: 85.556 mls/hr Potassium Chloride 20 meq/ (Premix) 100 mls @ 50 mls/hr IV ONETIME ONE Stop: 03/13/19 10:59 Last Admin: 03/13/19 09:29 Dose: 50 mls/hr Potassium Phosphate 30 mmole/ (Sodium Chloride) 110 mls @ 30 mls/hr IV ONETIME ONE Stop: 03/13/19 14:39 Last Admin: 03/13/19 12:14 Dose: 30 mls/hr Linezolid 600 mg/ Premix 300 mls @ 300 mls/hr IV Q12H [facility] Last Admin: 03/20/19 09:52 Dose: 300 mls/hr Magnesium Sulfate 2 gm/ Premix 50 mls @ 25 mls/hr IV Q6H [facility] Stop: 03/16/19 03:59 Last Admin: 03/16/19 01:59 Dose: 25 mls/hr Azithromycin 250 mg/ Sodium (Chloride) 150 mls @ 150 mls/hr IV Q12H [facility] Azithromycin 250 mg/ Sodium (Chloride) 150 mls @ 150 mls/hr IV Q24H [facility] Last Admin: 03/17/19 11:28 Dose: 150 mls/hr Multivitamins/Minerals 10 ml/Chromium/Copper/Manganese/Seleni/Zn 1 ml/ Amino Ac/ Electrol/Dextrose/Calcium 1,011 mls @ 82 mls/hr IV .BY DURATION [facility] Stop: 03/18/19 14:59 Last Admin: 03/17/19 14:26 Dose: 82 mls/hr Amino Ac/Electrol/Dextrose/Calcium (Clinimix E 5/15) 1,000 mls @ 82 mls/hr IV .BY DURATION [facility] Stop: 03/18/19 14:59 Last Admin: 03/18/19 03:38 Dose: 82 mls/hr Multivitamins/Minerals 10 ml/Chromium/Copper/Manganese/Seleni/Zn 1 ml/ Amino Ac/ Electrol/Dextrose/Calcium 1,011 mls @ 80 mls/hr IV .BY DURATION [facility] Last Admin: 03/18/19 16:05 Dose: 40 mls/hr Amino Ac/Electrol/Dextrose/Calcium (Clinimix E 5/15) 1,000 mls @ 40 mls/hr IV .BY DURATION [facility] Piperacillin Sod/Tazobactam (Sod 3.375 gm/ Sodium Chloride) 50 mls @ 100 mls/ hr IV Q6H [facility] Last Admin: 03/19/19 04:17 Dose: 100 mls/hr Sodium Chloride (Normal Saline) Confirm Administered Dose 50 mls @ as directed .ROUTE .STK-MED ONE Stop: 03/18/19 21:35 Last Admin: 03/18/19 21:40 Dose: Not Given Propofol (Diprivan 100 Ml) Confirm Administered Dose 100 mls @ as directed .ROUTE .STK-MED ONE Stop: 03/18/19 23:04 Last Admin: 03/19/19 01:04 Dose: Not Given Propofol (Diprivan 100 Ml) 100 mls @ 2.195 mls/hr IV TITRATE [facility]; Protocol Last Titration: 03/27/19 07:00 Dose: 0 mcg/kg/min, 0 mls/hr Heparin Sodium (Porcine) 5,000 (units/ Sodium Chloride) 501 mls @ 0.1 mls/hr IV ASDIRECTED [facility] Last Admin: 03/27/19 15:35 Dose: 1 units/hr, 0.1 mls/hr Sodium Chloride (Normal Saline) 500 mls @ 999 mls/hr IV .[facility] ONE Stop: 03/19/19 00:00 Last Admin: 03/19/19 00:00 Dose: 999 mls/hr Sodium Chloride (Normal Saline) 1,000 mls @ 20 mls/hr IV ASDIRECTED [facility] Last Admin: 03/30/19 23:53 Dose: 20 mls/hr Sodium Chloride (Normal Saline) 100 mls @ 4 mls/sec IV ASDIRECTED [facility] Stop: 03/19/19 10:00 Last Admin: 03/19/19 07:45 Dose: 4 mls/sec Multivitamins/Minerals 10 ml/Chromium/Copper/Manganese/Seleni/Zn 1 ml/ Amino Ac/ Electrol/Dextrose/Calcium 1,011 mls @ 80 mls/hr IV .BY DURATION [facility] Stop: 03/19/19 20:00 Amino Ac/Electrol/Dextrose/Calcium (Clinimix E 5/15) 1,000 mls @ 80 mls/hr IV .BY DURATION [facility] Stop: 03/19/19 20:00 Last Admin: 03/19/19 08:12 Dose: 80 mls/hr Piperacillin/Tazobactam/ (Dextrose 3.375 gm/ Premix) 50 mls @ 100 mls/hr IV Q6H [facility] Last Admin: 03/25/19 09:29 Dose: 100 mls/hr Multivitamins/Minerals 10 ml/Chromium/Copper/Manganese/Seleni/Zn 1 ml/ Amino Ac/ Electrol/Dextrose/Calcium 1,011 mls @ 82 mls/hr IV .BY DURATION [facility] Stop: 03/23/19 20:00 Last Admin: 03/22/19 21:45 Dose: 82 mls/hr Amino Ac/Electrol/Dextrose/Calcium (Clinimix E 5/15) 1,000 mls @ 82 mls/hr IV .BY DURATION [facility] Stop: 03/23/19 20:00 Last Admin: 03/23/19 11:17 Dose: Not Given Albumin Human (Albumin 25%) 25 gm in 100 mls @ 25 mls/hr IV Q24H [facility] Stop: 03/23/19 11:59 Last Admin: 03/23/19 08:20 Dose: 25 mls/hr Albumin Human (Albumin 25%) 25 gm in 100 mls @ 25 mls/hr IV Q24H [facility] Stop: 03/23/19 15:59 Last Admin: 03/23/19 11:22 Dose: 25 mls/hr Azithromycin 250 mg/ Sodium (Chloride) 150 mls @ 150 mls/hr IV Q24H [facility] Last Admin: 03/24/19 11:55 Dose: 150 mls/hr Potassium Chloride 20 meq/ (Premix) 100 mls @ 50 mls/hr IV ONETIME ONE Stop: 03/21/19 10:59 Last Admin: 03/21/19 09:29 Dose: 50 mls/hr Potassium Chloride 40 meq/ (Premix) 100 mls @ 25 mls/hr IV ONETIME ONE Stop: 03/22/19 13:59 Last Admin: 03/22/19 10:01 Dose: 25 mls/hr Magnesium Sulfate 2 gm/ Premix 50 mls @ 25 mls/hr IV Q6H [facility] Stop: 03/26/19 03:59 Last Admin: 03/24/19 08:07 Dose: 25 mls/hr Potassium Chloride 40 meq/ (Premix) 100 mls @ 25 mls/hr IV ONETIME ONE Stop: 03/23/19 13:59 Last Admin: 03/23/19 09:22 Dose: 25 mls/hr Potassium Chloride 40 meq/ (Premix) 100 mls @ 25 mls/hr IV ONETIME ONE Stop: 03/24/19 13:59 Last Admin: 03/24/19 09:54 Dose: 25 mls/hr Potassium Chloride 40 meq/ (Premix) 100 mls @ 25 mls/hr IV ONETIME ONE Stop: 03/25/19 13:59 Last Admin: 03/25/19 10:32 Dose: 25 mls/hr Fat Emulsion Intravenous (Intralipid 20%) 100 mls @ 8.3 mls/hr IV Q48H [facility] Last Admin: 03/29/19 15:52 Dose: 8.3 mls/hr Magnesium Sulfate 2 gm/ Premix 50 mls @ 25 mls/hr IV Q6H [facility] Stop: 03/30/19 03:59 Last Admin: 03/30/19 03:14 Dose: 25 mls/hr Sodium Chloride (Normal Saline) 75 mls @ 3 mls/sec IV ASDIRECTED [facility] Last Admin: 03/30/19 10:36 Dose: 3 mls/sec Sodium Chloride (Normal Saline) 100 mls @ 3 mls/sec IV ONETIME ONE Stop: 03/30/19 10:27 Last Admin: 03/30/19 19:19 Dose: Not Given Insulin Glargine (Lantus Solostar) 10 units SUBCUT BID [facility] Last Admin: 03/16/19 09:27 Dose: 10 unit Insulin Glargine (Lantus Solostar) 14 units SUBCUT BID [facility] Last Admin: 03/18/19 09:06 Dose: 14 units Insulin Glargine (Lantus Solostar) 7 units SUBCUT BID [facility] Stop: 03/18/19 21:01 Last Admin: 03/18/19 21:25 Dose: Not Given Insulin Human Lispro (Humalog) 0 unit SUBCUT Q6H PRN; Protocol PRN Reason: MEDIUM CORRECTIONAL DOSING Last Admin: 03/14/19 17:42 Dose: 7 units Insulin Human Lispro (Humalog) 15 unit SUBCUT ONETIME ONE Stop: 03/14/19 12:05 Last Admin: 03/14/19 12:10 Dose: 15 units Insulin Human Lispro (Humalog) 0 unit SUBCUT ONETIME ONE Stop: 03/15/19 00:16 Last Admin: 03/15/19 00:25 Dose: 12 units Iohexol (Omnipaque-300) 100 ml IVPUSH . DIRECTED [facility] Iopamidol (Isovue-370 (76%)) 100 ml IV . DIRECTED [facility] Stop: 03/19/19 10:00 Last Admin: 03/19/19 07:45 Dose: 100 ml Iopamidol (Isovue-300 (61%)) 100 ml IV . DIRECTED PRN PRN Reason: RADIOLOGY EXAM Last Admin: 03/30/19 10:36 Dose: 100 ml Levothyroxine Sodium (Synthroid) 100 mcg IVPUSH DAILY [facility] Last Admin: 03/31/19 08:33 Dose: 100 mcg Lidocaine HCl (Xylocaine-Mpf 1%) 5 ml INJECT ONETIME ONE Stop: 03/11/19 05:30 Last Admin: 03/11/19 05:39 Dose: 2 ml Lidocaine/Epinephrine (Xylocaine 1% With Epinephrine 1:100,000) Confirm Administered Dose 50 ml .ROUTE .STK-MED ONE Stop: 03/10/19 06:23 Lidocaine/Epinephrine (Xylocaine 1% With Epinephrine 1:100,000) Confirm Administered Dose 50 ml .ROUTE .STK-MED ONE Stop: 03/11/19 07:19 Last Admin: 03/11/19 07:28 Dose: 15 ml Linezolid (Zyvox) 600 mg IRR .STK-MED ONE Stop: 03/11/19 07:39 Last Admin: 03/11/19 07:38 Dose: 600 mg Lorazepam (Ativan) 0.5 mg IVPUSH BID [facility] Last Admin: 03/09/19 09:09 Dose: 0.5 mg Lorazepam (Ativan) 0.5 mg IVPUSH Q4H PRN PRN Reason: Anxiety Last Admin: 03/27/19 10:07 Dose: 0.5 mg Lorazepam (Ativan) 0.25 mg IVPUSH BID [facility] Last Admin: 03/10/19 09:09 Dose: 0.25 mg Lorazepam (Ativan) 0.5 mg IVPUSH BID [facility] Last Admin: 03/30/19 21:01 Dose: 0.5 mg Meropenem (Merrem) Confirm Administered Dose 500 mg .ROUTE .STK-MED ONE Stop: 03/08/19 12:05 Last Admin: 03/08/19 14:00 Dose: 500 mg Meropenem (Merrem) Confirm Administered Dose 500 mg .ROUTE .STK-MED ONE Stop: 03/10/19 06:23 Meropenem (Merrem) Confirm Administered Dose 500 mg .ROUTE .STK-MED ONE Stop: 03/11/19 06:45 Last Admin: 03/11/19 07:38 Dose: 500 mg Methylprednisolone Sodium Succinate (Solu-Medrol) 40 mg IVPUSH Q6H [facility] Last Admin: 03/20/19 09:50 Dose: 40 mg Metoprolol Tartrate (Lopressor) 5 mg IV Q6H [facility] Last Admin: 03/26/19 07:56 Dose: Not Given Metoprolol Tartrate (Lopressor) 2.5 mg IV Q6H [facility] Last Admin: 03/29/19 05:23 Dose: 2.5 mg Naloxone HCl (Narcan) 0.1 mg IV ASDIRECTED PRN PRN Reason: decreased respiratory rate Neostigmine Methylsulfate (Neostigmine) Confirm Administered Dose 5 mg .ROUTE .STK-MED ONE Stop: 03/08/19 12:18 Non-Formulary Medication (Total Parenteral Nutrition, Central) 1,000 ml .XX .Continue Order [facility] Stop: 03/22/19 12:00 Non-Formulary Medication (Total Parenteral Nutrition, Central) 1,000 ml .XX .Continue Order [facility] Stop: 03/23/19 12:00 Non-Formulary Medication (Total Parenteral Nutrition, Central) 1,000 ml .XX .Continue Order [facility] Stop: 03/24/19 15:00 Non-Formulary Medication (Total Parenteral Nutrition, Central) 1,000 ml .XX .Continue Order [facility] Stop: 03/26/19 12:00 Ondansetron HCl (Zofran) Confirm Administered Dose 4 mg .ROUTE .STK-MED ONE Stop: 03/08/19 12:18 Ondansetron HCl (Zofran) 4 mg IVPUSH Q6H PRN PRN Reason: Nausea/Vomiting Pantoprazole Sodium (Protonix Iv) 40 mg IV Q24H [facility] Last Admin: 03/30/19 17:44 Dose: 40 mg Piperacillin Sod/Tazobactam Sod (Zosyn) Confirm Administered Dose 3.375 gm .ROUTE .STK-MED ONE Stop: 03/18/19 21:34 Last Admin: 03/18/19 21:40 Dose: Not Given Propofol (Diprivan 20 Ml) Confirm Administered Dose 200 mg .ROUTE .STK-MED ONE Stop: 03/08/19 12:18 Propofol (Diprivan 20 Ml) Confirm Administered Dose 200 mg .ROUTE .STK-MED ONE Stop: 03/10/19 07:33 Rocuronium [place] (Zemuron) Confirm Administered Dose 50 mg .ROUTE .STK-MED ONE Stop: 03/08/19 12:18 Scopolamine (Transderm-Scop) 1.5 mg TRDERM Q72H [facility] Last Admin: 03/28/19 10:35 Dose: 1.5 mg Sodium Chloride (Saline Flush) 10 ml FLUSH ONETIME ONE Stop: 03/30/19 10:02 Last Admin: 03/30/19 10:35 Dose: 10 ml Sodium Chloride (Saline Flush) 10 ml FLUSH ONETIME PRN PRN Reason: PER RADIOLOGY PROTOCOL Succinylcholine Chloride (Quelicin) Confirm Administered Dose 200 mg .ROUTE .STK -MED ONE Stop: 03/08/19 12:18 Succinylcholine Chloride (Quelicin) Confirm Administered Dose 200 mg .ROUTE .STK -MED ONE Stop: 03/10/19 07:33 - Exam Quality Assessment: Supplemental Oxygen, Central Line/PICC, DVT Prophylaxis. No : Urine Catheter General: Alert, Cooperative, Mild Distress Lungs: Clear to Auscultation, Normal Respiratory Effort Cardiovascular: Regular Rate, Regular Rhythm, No Murmurs GI/Abdominal Exam: Soft, Non-Tender, No Organomegaly, No Distention Extremities: Non-Tender, No Pedal Edema - Problem List Review Problem List Initiated/Reviewed/Updated: Yes - My Orders Last 24 Hours: My Active Orders 03/30/19 17:38 diphenhydrAMINE/Zinc Acetate [Banophen Anti-Itch 2% Crm] 0 gm TOP QID PRN 03/30/19 22:06 OR PCXR-No Charge-PICC/Central [CR] Routine 03/31/19 09:04 RECEIVABLE EXECUTIVE Evaluation and Treatment [CONS] Routine Convert IV to Saline Lock [OM.PC] Routine 03/31/19 09:15 Atenolol [Atenolol] 100 mg PO DAILY Doxazosin Mesylate [Cardura] 4 mg PO DAILY 03/31/19 17:00 cloZAPine [Clozapine] 450 mg PO QPM 03/31/19 21:00 Divalproex Sodium 1,500 mg PO BEDTIME Famotidine [Famotidine] 40 mg PO BID Haloperidol [Haldol] 10 mg PO BID LORazepam [Ativan] 1 mg PO BID 03/31/19 Lunch Full Liquid Diet [DIET] 04/01/19 05:00 BASIC METABOLIC PANEL,BMP [CHEM] Timed CBC WITH AUTO DIFF [HEME] Timed 04/01/19 07:30 Levothyroxine [Synthroid] 88 mcg PO ACBREAKFAST 04/01/19 09:00 Docusate Sodium/Sennosides [Senna Plus] 1 each PO DAILY - Plan Plan:: ASSESSMENT AND PLAN - Acute respiratory failure with hypoxia and hypercapnia - Overall fairly stable since extubation 4 days ago. Secretions have come under better control over the past few days. -Racemic epinephrine nebulizer as needed for stridor and laryngeal spasm -Supplement oxygen, consider NIPPV if needed -Diuresis -Vigorous pulmonary toilet -Continue meropenem and Solu-Medrol and additional 24 hours Small bowel obstruction with pneumatosis - status post emergent laparotomy with small bowel resection and right colectomy 03/08. Abdomen not distended. He is having bowel movements. He T scan abdomen pelvis showed no significant abnormalities. -Discontinue NG tube -Postoperative care per surgical team -He is receiving TPN -Pain control Type 2 diabetes mellitus - blood sugar levels have remained in goal range. -Continue glucometers every 6 hours -Continue insulin in the TPN -High dose sliding scale Humalog Hypokalemia - potassium level normal today. -Recheck in the morning Severe schizophrenia - patient is very debilitated because of his psychiatric illness. Now that he is extubated hopefully we can get his regular medications on board in the near future. -Resume usual oral medications Acute kidney injury - resolved -Continue to closely monitor urine output and renal function Maintenance issues - - DVT prophylaxis - mechanical - GI prophylaxis - oral H2 holden - Nutrition - nothing by mouth, currently receiving TPN for nutritional support. We may try some liquids and medications later in the day - Rodriguez catheter - placed for strict intake and output monitoring with a critical patient Disposition - anticipate discharge home versus more likely the longterm. the patient's hospital stay has been greatly prolonged by multiple unforeseen complications including prolonged return of bowel function postoperatively, aspiration leading to respiratory failure and reintubation.
[2019-03-31] MEDS: Insulin Glargine,Human Rec. Analog 100 Units/ML 3 ML Pen SUBCUT SCH ×2 (09:17→21:13)
[2019-03-31] MEDS: Doxazosin 4 MG Tab PO SCH (10:10)
[2019-03-31] MEDS: LORazepam 1 MG Tab PO SCH ×2 (10:30→20:01)
[2019-03-31] MEDS ORDERED: Central Total Parenteral Nutrition Bag IV SCH (13:00)
[2019-03-31] MEDS: Atenolol 50 MG Tab PO SCH (13:41)
[2019-03-31] MEDS: Insulin Lispro 100 Unit/ML 3 ML KwikPen SUBCUT SCH (16:14)
[2019-03-31] MEDS: CLOZAPINE 100 MG PO SCH (20:01)
[2019-03-31] MEDS: Divalproex Sodium Delayed-Release 250 MG Tab.CR PO SCH (20:02)
[2019-03-31] MEDS: Famotidine 20 MG Tab PO SCH (20:03)
[2019-03-31] MEDS: Haloperidol 5 MG Tab PO SCH (20:03)
[2019-03-31] MEDS: Latanoprost 0.005% Ophth Soln 2.5 ML Bottle EYEBOTH SCH (20:04)
[2019-04-01] MEDS: diphenhydrAMINE 50 MG/ML SDV IVPUSH PRN (01:49)
[2019-04-01] MEDS: 1: AA 5%/Calcium/D15W/Lytes 1,000 ML with MVI, Adult with Vitamin K 10 ML, Chromium/Copp IV SCH ×6 (02:29→14:27)
[2019-04-01] MEDS: methylPREDNISolone Sodium Succinate 40 MG/1 ML SDV IVPUSH SCH ×2 (04:26→10:25)
[2019-04-01] MEDS: LORazepam 2 MG/ML SDV IVPUSH PRN (04:31)
[2019-04-01] MEDS: Nystatin Topical Powder 15 GM Bottle TOP SCH ×4 (06:08→21:18)
[2019-04-01] MEDS: Sodium Chloride 5% Ophth Soln 15 ML Bottle EYEBOTH SCH ×4 (06:08→21:18)
[2019-04-01] MEDS: Albuterol/Ipratropium 3.0-0.5 MG/3 ML Neb Soln INH SCH ×4 (06:57→20:00)
[2019-04-01] MEDS: Levothyroxine 88 MCG Tab PO SCH (08:06)
[2019-04-01] MEDS: LORazepam 1 MG Tab PO SCH ×2 (08:07→20:00)
[2019-04-01] MEDS: Doxazosin 4 MG Tab PO SCH (08:08)
[2019-04-01] MEDS: Docusate Sodium 100 MG Cap PO SCH ×2 (08:08→21:17)
[2019-04-01] MEDS: Haloperidol 5 MG Tab PO SCH ×2 (08:09→20:02)
[2019-04-01] MEDS: Famotidine 20 MG Tab PO SCH ×2 (08:10→21:18)
[2019-04-01] MEDS: Atenolol 50 MG Tab PO SCH (08:11)
[2019-04-01] MEDS: Insulin Lispro 100 Unit/ML 3 ML KwikPen SUBCUT SCH ×4 (08:12→20:11)
[2019-04-01] MEDS: Insulin Glargine,Human Rec. Analog 100 Units/ML 3 ML Pen SUBCUT SCH ×2 (08:12→20:10)
[2019-04-01] MEDS ORDERED: Central Total Parenteral Nutrition Bag SCH (08:30)
[2019-04-01] MEDS: SCOPOLAMINE PATCH CHECK TOP SCH (09:08)
--- NOTE | 2019-04-01 09:24 | PN ---
DATE OF SERVICE: 04/01/2019 SUBJECTIVE: Tuan's vital signs have been stable. Oral intake 160. He is on a full liquid diet and continues with TPN. Last bowel movement was on 04/01/2019. OBJECTIVE: GENERAL: Tuan Perez is a 58-year-old male. VITAL SIGNS: TPR; 98.9, 102, 22. Blood pressure 152/75. HEART: Regular rate. LUNGS: Clear. ABDOMEN: Negative. Incision is healing well. EXTREMITIES: Negative. PLAN: 1. Continue same TPN rate and content. 2. Check CBC and CMP in a.m. 3. We will evaluate p.r.n. or in a.m. Syl Galindo PA-C /[id number]
--- NOTE | 2019-04-01 10:49 | PCM.PN ---
- General Info Date of Service: 04/01/19 Subjective Update: Mr. Perez has been stable overnight, currently tolerating a full liquid diet with no evidence of difficulty with swallowing or aspiration. Speech therapy consult had been ordered yesterday but apparently is not available until early next week. Vital signs have remained stable and he has been afebrile. Functional Status: Reports: Tolerating Diet, Ambulating, Urinating - Review of Systems General: Reports: Weakness. Denies: Fever, Chills Pulmonary: Reports: No Symptoms Cardiovascular: Reports: No Symptoms Gastrointestinal: Reports: No Symptoms Genitourinary: Reports: No Symptoms - Patient Data Vitals - Most Recent: Last Vital Signs Temp 98.9 F 04/01/19 08:00 Pulse 102 H 04/01/19 08:11 Resp 20 04/01/19 10:00 BP 169/90 H 04/01/19 10:00 Pulse Ox 95 04/01/19 10:00 Weight - Most Recent: 158 lb 1.143 oz I&O - Last 24 Hours: Intake & Output 03/31/19 04/01/19 04/01/19 22:59 06:59 14:59 Intake Total 1397 1295 120 Balance 1397 1295 120 Lab Results Last 24 Hours: Laboratory Results - last 24 hr 04/01/19 04/01/19 Range/Units 04:00 04:00 WBC 10.6 (4.5-11.0) K/uL RBC 2.99 L (4.30-5.90) M/uL Hgb 8.6 L (12.0-15.0) g/dL Hct 28.4 L (40.0-54.0) % MCV 95 (80-98) fL MCH 29 (27-31) pg MCHC 30 L (32-36) % Plt Count 367 (150-400) K/uL Neut % (Auto) 76 H (36-66) % Lymph % (Auto) 14 L (24-44) % [place] % (Auto) 10 H (2-6) % Eos % (Auto) 0 L (2-4) % Baso % (Auto) 0 (0-1) % Sodium 147 (140-148) mmol/L Potassium 4.5 (3.6-5.2) mmol/L Chloride 111 H (100-108) mmol/L Carbon Dioxide 26 (21-32) mmol/L Anion Gap 14.5 H (5.0-14.0) mmol/L BUN 41 H (7-18) mg/dL Creatinine 1.0 (0.8-1.3) mg/dL Est Cr Clr Drug Dosing 67.42 mL/min Estimated GFR (MDRD) > 60 (>60) Glucose 179 H (74-106) mg/dL Calcium 8.7 (8.5-10.1) mg/dL Med Orders - Current: Current Medications Albuterol (Proventil Neb Soln) 2.5 mg NEB Q4H PRN PRN Reason: Shortness Of Breath/wheezing Last Admin: 03/10/19 00:24 Dose: 2.5 mg Albuterol/Ipratropium (Duoneb 3.0-0.5 Mg/3 Ml) 3 ml INH QIDRT [facility] Last Admin: 04/01/19 10:45 Dose: 3 ml Atenolol (Tenormin) 100 mg PO DAILY [facility] Last Admin: 04/01/19 08:11 Dose: 100 mg Dextrose (Glutose 15) 15 gm PO ASDIRECTED PRN PRN Reason: HYPOGLYCEMIA Dextrose/Water (Dextrose 50% In Water) 50 ml IVPUSH ASDIRECTED PRN PRN Reason: HYPOGLYCEMIA Diphenhydramine HCl (Benadryl) 25 mg IVPUSH Q4H PRN PRN Reason: Itching Last Admin: 04/01/19 01:49 Dose: 25 mg Divalproex Sodium (Divalproex Sodium) 1,500 mg PO BEDTIME [facility] Last Admin: 03/31/19 20:02 Dose: 1,500 mg Docusate Sodium (Colace) 100 mg PO BID [facility] Last Admin: 04/01/19 08:08 Dose: 100 mg Doxazosin Mesylate (Cardura) 4 mg PO DAILY [facility] Last Admin: 04/01/19 08:08 Dose: 4 mg Famotidine (Pepcid) 40 mg PO BID [facility] Last Admin: 04/01/19 08:10 Dose: 40 mg Glucagon (Glucagen) 1 mg IM ASDIRECTED PRN PRN Reason: HYPOGLYCEMIA Haloperidol (Haldol) 10 mg PO BID [facility] Last Admin: 04/01/19 08:09 Dose: 10 mg Haloperidol Lactate (Haldol) 2 mg IVPUSH Q4H PRN PRN Reason: Agitation Last Admin: 03/27/19 16:15 Dose: 2 mg Heparin Sodium (Porcine) (Heparin Lock Flush 100 Units/Ml) 500 units FLUSH ASDIRECTED PRN PRN Reason: Keep Vein Open Last Admin: 03/31/19 00:00 Dose: 500 units Multivitamins/Minerals 10 ml/Chromium/Copper/Manganese/Seleni/Zn 1 ml/ Amino Ac/ Electrol/Dextrose/Calcium 1,011 mls @ 82 mls/hr IV .BY DURATION [facility] Last Admin: 04/01/19 02:29 Dose: 82 mls/hr Amino Ac/Electrol/Dextrose/Calcium (Clinimix E 5/15) 1,000 mls @ 82 mls/hr IV .BY DURATION [facility] Last Admin: 03/31/19 14:10 Dose: 82 mls/hr Meropenem 1 gm/ Sodium (Chloride) 50 mls @ 100 mls/hr IV Q8H [facility] Last Admin: 04/01/19 08:01 Dose: 100 mls/hr Insulin Glargine (Lantus Solostar) 12 units SUBCUT BID [facility] Last Admin: 04/01/19 08:12 Dose: 12 units Insulin Human Lispro (Humalog) 0 unit SUBCUT ASDIRECTED [facility]; Protocol Last Admin: 04/01/19 08:12 Dose: 3 units Latanoprost (Xalatan 0.005% Ophth Soln) 0 ml EYEBOTH BEDTIME [facility] Last Admin: 03/31/19 20:04 Dose: 1 drop Levothyroxine Sodium (Synthroid) 88 mcg PO ACBREAKFAST [facility] Last Admin: 04/01/19 08:06 Dose: 88 mcg Lorazepam (Ativan) 1 mg IVPUSH Q1H PRN PRN Reason: Anxiety Last Admin: 04/01/19 04:31 Dose: 1 mg Lorazepam (Ativan) 1 mg PO BID [facility] Last Admin: 04/01/19 08:07 Dose: 1 mg Methylprednisolone Sodium Succinate (Solu-Medrol) 40 mg IVPUSH Q12H [facility] Morphine Sulfate (Morphine) 2 mg IVPUSH Q1H PRN PRN Reason: Other Last Admin: 03/31/19 01:30 Dose: 2 mg Scopolamine Patch (Check) 1 each TOP DAILY [facility] Last Admin: 04/01/19 09:08 Dose: Not Given Clozapine 100mg (Ptom) 0 mg PO BEDTIME [facility] Last Admin: 03/31/19 20:01 Dose: 450 mg Nystatin (Nystop) 0 gm TOP QID [facility] Last Admin: 04/01/19 09:11 Dose: 1 applic Ondansetron HCl (Zofran) 4 mg IVPUSH Q4H PRN PRN Reason: Nausea/Vomiting Last Admin: 03/18/19 17:31 Dose: 4 mg Racepinephrine (S-2 2.25%) 0.5 ml NEB Q2H PRN PRN Reason: Shortness of Breath Last Admin: 03/28/19 00:32 Dose: 0.5 ml Senna/Docusate Sodium (Senna Plus) 1 tab PO DAILY [facility] Last Admin: 04/01/19 08:11 Dose: 1 tab Sodium Chloride (Joseph 128 5% Ophth Soln) 0 ml EYEBOTH QID [facility] Last Admin: 04/01/19 10:25 Dose: 1 drop Sodium Chloride (Sodium Chloride 0.9%) 3 ml INH ASDIRECTED PRN PRN Reason: mix with racepinephrine neb Last Admin: 03/28/19 00:35 Dose: 3 ml Zinc Acetate/Diphenhydramine (Banophen Anti-Itch 2% Crm) 0 gm TOP QID PRN PRN Reason: Perineal Comfort Measure Discontinued Medications Acetylcysteine (Mucomyst 20%) 400 mg INH BIDRT [facility] Last Admin: 03/12/19 07:48 Dose: 200 mg Acetylcysteine (Mucomyst 20%) 200 mg INH BIDRT [facility] Stop: 03/12/19 23:59 Last Admin: 03/12/19 20:44 Dose: 200 mg Acetylcysteine (Mucomyst 20%) 200 mg NEB BIDRT [facility] Last Admin: 03/27/19 07:06 Dose: 200 mg Atropine Sulfate (Atropine 1%) 0 ml SL BID [facility] Last Admin: 03/29/19 09:06 Dose: 4 drop Bisacodyl (Dulcolax) 10 mg PO BID [facility] Last Admin: 03/17/19 20:35 Dose: Not Given Bisacodyl (Dulcolax) 10 mg RECTAL ONETIME ONE Stop: 03/17/19 17:01 Last Admin: 03/17/19 17:10 Dose: 10 mg Bupivacaine HCl (Marcaine 0.5%) Confirm Administered Dose 50 ml .ROUTE .STK-MED ONE Stop: 03/10/19 06:23 Bupivacaine HCl (Marcaine 0.5%) Confirm Administered Dose 50 ml .ROUTE .[employer] ONE Stop: 03/11/19 07:19 Last Admin: 03/11/19 07:28 Dose: 15 ml Ropivacaine 36 ml/Dexamethasone 8 mg/Epinephrine HCl 0.4 mg/ Sodium Chloride 41.6 ml 0 ml NERVRT ASDIRECTED [facility] Last Admin: 03/08/19 15:05 Dose: 80 syringe Ropivacaine 36 ml/Dexamethasone 8 mg/Epinephrine HCl 0.4 mg/ Sodium Chloride 41.6 ml 0 ml NERVRT ASDIRECTED [facility] Last Admin: 03/11/19 07:41 Dose: 80 syringe Dexamethasone (Dexamethasone) Confirm Administered Dose 4 mg .ROUTE .[employer] ONE Stop: 03/08/19 12:18 Dimethicone/Zinc Oxide (Rash Relief-Zinc Oxide [place]) 0 gm TOP ASDIRECTED PRN PRN Reason: Perineal Comfort Measure Last Admin: 03/29/19 15:40 Dose: 6 spray Diphenhydramine HCl (Benadryl) 25 mg IVPUSH Q6H PRN PRN Reason: Itching Diphenhydramine HCl (Benadryl) 25 mg PO Q6H PRN PRN Reason: Itching Fentanyl (Sublimaze) Confirm Administered Dose 250 mcg .ROUTE .[employer] ONE Stop: 03/08/19 12:19 Furosemide (Lasix) 20 mg IVPUSH ONETIME ONE Stop: 03/09/19 21:56 Last Admin: 03/09/19 22:10 Dose: 20 mg Furosemide (Lasix) Confirm Administered Dose 20 mg .ROUTE .[employer]-MED ONE Stop: 03/09/19 22:05 Last Admin: 03/09/19 22:10 Dose: Not Given Furosemide (Lasix) 20 mg IVPUSH ONETIME ONE Stop: 03/10/19 06:33 Last Admin: 03/10/19 07:20 Dose: 20 mg Furosemide (Lasix) 20 mg IVPUSH ONETIME ONE Stop: 03/12/19 18:01 Last Admin: 03/12/19 17:43 Dose: 20 mg Furosemide (Lasix) 20 mg IVPUSH ONETIME ONE Stop: 03/12/19 07:31 Last Admin: 03/12/19 07:44 Dose: 20 mg Furosemide (Lasix) 10 mg IVPUSH Q12H [facility] Stop: 03/13/19 21:01 Last Admin: 03/13/19 20:29 Dose: 10 mg Furosemide (Lasix) 20 mg IVPUSH NOW ONE Stop: 03/15/19 11:31 Last Admin: 03/15/19 11:38 Dose: 20 mg Furosemide (Lasix) 20 mg IVPUSH ONETIME ONE Stop: 03/16/19 13:31 Last Admin: 03/16/19 14:18 Dose: 20 mg Furosemide (Lasix) 20 mg IVPUSH NOW ONE Stop: 03/17/19 09:16 Last Admin: 03/17/19 09:47 Dose: 20 mg Furosemide (Lasix) 20 mg IVPUSH Q12H [facility] Stop: 03/22/19 21:31 Last Admin: 03/22/19 22:10 Dose: 20 mg Furosemide (Lasix) 20 mg IVPUSH Q12H [facility] Stop: 03/23/19 22:01 Last Admin: 03/23/19 22:47 Dose: 20 mg Furosemide (Lasix) 20 mg IVPUSH Q8H [facility] Stop: 03/25/19 02:01 Last Admin: 03/25/19 02:11 Dose: 20 mg Furosemide (Lasix) 20 mg IVPUSH Q12H [facility] Last Admin: 03/25/19 21:32 Dose: 20 mg Furosemide (Lasix) 20 mg IVPUSH Q8H [facility] Last Admin: 03/28/19 09:14 Dose: 20 mg Furosemide (Lasix) 20 mg IVPUSH Q12H [facility] Last Admin: 03/28/19 21:46 Dose: 20 mg Glycopyrrolate (Robinul) Confirm Administered Dose 1 mg .ROUTE .STK-MED ONE Stop: 03/08/19 12:18 Haloperidol Lactate (Haldol) 5 mg IVPUSH BID [facility] Last Admin: 03/09/19 09:06 Dose: 5 mg Haloperidol Lactate (Haldol) 2.5 mg IVPUSH BID [facility] Last Admin: 03/31/19 08:37 Dose: 2.5 mg Heparin Sodium (Porcine) (Heparin Sodium) Confirm Administered Dose 5,000 units .ROUTE .STK-MED ONE Stop: 03/10/19 07:04 Last Admin: 03/10/19 07:57 Dose: Not Given Heparin Sodium (Porcine) (Heparin Lock Flush 100 Units/Ml) Confirm Administered Dose 1,000 units .ROUTE .[facility] ONE Stop: 03/11/19 07:32 Last Admin: 03/11/19 08:31 Dose: Not Given Heparin Sodium (Porcine) (Heparin Sodium) Confirm Administered Dose 5,000 units .ROUTE .[facility] ONE Stop: 03/18/19 23:03 Last Admin: 03/19/19 02:36 Dose: Not Given Hydromorphone HCl (Dilaudid Ski Guide 15 Mg In Ns 30 Ml) 0 mg IV ASDIRECTED PRN; Protocol PRN Reason: PAIN Last Admin: 03/16/19 16:43 Dose: 15 mg Sodium Chloride (Normal Saline) 1,000 mls @ 1,000 mls/hr IV ASDIRECTED [facility] Last Admin: 03/08/19 10:02 Dose: 1,000 mls/hr Ampicillin Sodium/Sulbactam (Sodium 1.5 gm/ Sodium Chloride) 50 mls @ 100 mls/ hr IV Q6H [facility] Last Admin: 03/08/19 13:30 Dose: 100 mls/hr Aztreonam 1 gm/ Sodium (Chloride) 50 mls @ 100 mls/hr IV Q12H [facility] Last Admin: 03/08/19 13:30 Dose: 100 mls/hr Lactated Ringer's (Ringers, Lactated) 1,000 mls @ 150 mls/hr IV ASDIRECTED [facility] Last Admin: 03/08/19 13:31 Dose: 150 mls/hr Lactated Ringer's (Ringers, Lactated) Confirm Administered Dose 1,000 mls @ as directed .ROUTE .[facility] ONE Stop: 03/08/19 15:16 Lactated Ringer's (Ringers, Lactated) 1,000 mls @ 100 mls/hr IV ASDIRECTED [facility] Last Admin: 03/09/19 03:26 Dose: 100 mls/hr Dextrose/Lactated Ringer's (Dextrose 5%-Lactated Ringers) 1,000 mls @ 100 mls/ hr IV ASDIRECTED [facility] Stop: 03/12/19 11:59 Last Admin: 03/11/19 23:35 Dose: 100 mls/hr Ampicillin Sodium/Sulbactam (Sodium 3 gm/ Sodium Chloride) 100 mls @ 200 mls/ hr IV Q6H [facility] Last Admin: 03/13/19 05:19 Dose: 200 mls/hr Aztreonam 1 gm/ Sodium (Chloride) 50 mls @ 100 mls/hr IV Q8H [facility] Last Admin: 03/13/19 04:23 Dose: 100 mls/hr Valproic Acid 500 mg/ Sodium (Chloride) 55 mls @ 55 mls/hr IV Q8H [facility] Last Admin: 03/31/19 04:58 Dose: 55 mls/hr Potassium Chloride 20 meq/Lidocaine HCl 2 ml/ Sodium Chloride 112 mls @ 56 mls/ hr IV Q2H [facility] Stop: 03/09/19 15:59 Last Admin: 03/09/19 17:30 Dose: 56 mls/hr Lactated Ringer's (Ringers, Lactated) 750 mls @ 750 mls/hr IV BOLUS ONE Stop: 03/09/19 16:25 Last Admin: 03/09/19 15:53 Dose: 750 mls/hr Lactated Ringer's (Ringers, Lactated) 750 mls @ 999 mls/hr IV BOLUS ONE Stop: 03/09/19 21:15 Last Admin: 03/09/19 21:08 Dose: 999 mls/hr Heparin Sodium (Porcine) 5,000 (units/ Sodium Chloride) 501 mls @ 5 mls/hr IV ASDIRECTED [facility] Last Admin: 03/12/19 13:58 Dose: 5 mls/hr Propofol (Diprivan 100 Ml) 100 mls @ 2.191 mls/hr IV TITRATE [facility]; Protocol Last Titration: 03/15/19 07:18 Dose: 0 mcg/kg/min, 0 mls/hr Linezolid 600 mg/ Premix 300 mls @ 300 mls/hr IV Q12H [facility] Last Admin: 03/11/19 21:53 Dose: 300 mls/hr Potassium Chloride 20 meq/Lidocaine HCl 2 ml/ Sodium Chloride 112 mls @ 56 mls/ hr IV Q2H [facility] Stop: 03/10/19 16:29 Last Admin: 03/10/19 16:07 Dose: 56 mls/hr Potassium Chloride 20 meq/ (Premix) 0 mls @ 50 mls/hr IV Q2H [facility] Stop: 03/11/19 07:28 Last Admin: 03/11/19 07:32 Dose: 50 mls/hr Magnesium Sulfate 2 gm/ Premix 50 mls @ 25 mls/hr IV Q6H [facility] Last Admin: 03/12/19 04:27 Dose: 25 mls/hr Potassium Phosphate 20 mmole/ (Sodium Chloride) 256.6667 mls @ 85 mls/hr IV Q3H [facility] Stop: 03/11/19 17:59 Last Admin: 03/11/19 14:42 Dose: 85 mls/hr Multivitamins/Minerals 10 ml/Chromium/Copper/Manganese/Seleni/Zn 1 ml/ Amino Ac/ Electrol/Dextrose/Calcium 1,011 mls @ 82 mls/hr IV .BY DURATION [facility] Last Admin: 03/13/19 12:34 Dose: 82 mls/hr Amino Ac/Electrol/Dextrose/Calcium (Clinimix E 5/15) 1,000 mls @ 82 mls/hr IV .BY DURATION [facility] Last Admin: 03/14/19 01:20 Dose: 82 mls/hr Sodium Chloride (Normal Saline) 1,000 mls @ 20 mls/hr IV ASDIRECTED [facility] Last Admin: 03/13/19 22:58 Dose: 20 mls/hr Potassium Phosphate 20 mmole/ (Sodium Chloride) 256.6667 mls @ 85.556 mls/hr IV Q3H [facility] Stop: 03/12/19 16:59 Last Admin: 03/12/19 14:49 Dose: 85.556 mls/hr Potassium Chloride 20 meq/ (Premix) 100 mls @ 50 mls/hr IV ONETIME ONE Stop: 03/13/19 10:59 Last Admin: 03/13/19 09:29 Dose: 50 mls/hr Potassium Phosphate 30 mmole/ (Sodium Chloride) 110 mls @ 30 mls/hr IV ONETIME ONE Stop: 03/13/19 14:39 Last Admin: 03/13/19 12:14 Dose: 30 mls/hr Linezolid 600 mg/ Premix 300 mls @ 300 mls/hr IV Q12H [facility] Last Admin: 03/20/19 09:52 Dose: 300 mls/hr Magnesium Sulfate 2 gm/ Premix 50 mls @ 25 mls/hr IV Q6H [facility] Stop: 03/16/19 03:59 Last Admin: 03/16/19 01:59 Dose: 25 mls/hr Azithromycin 250 mg/ Sodium (Chloride) 150 mls @ 150 mls/hr IV Q12H [facility] Azithromycin 250 mg/ Sodium (Chloride) 150 mls @ 150 mls/hr IV Q24H [facility] Last Admin: 03/17/19 11:28 Dose: 150 mls/hr Multivitamins/Minerals 10 ml/Chromium/Copper/Manganese/Seleni/Zn 1 ml/ Amino Ac/ Electrol/Dextrose/Calcium 1,011 mls @ 82 mls/hr IV .BY DURATION [facility] Stop: 03/18/19 14:59 Last Admin: 03/17/19 14:26 Dose: 82 mls/hr Amino Ac/Electrol/Dextrose/Calcium (Clinimix E 5/15) 1,000 mls @ 82 mls/hr IV .BY DURATION [facility] Stop: 03/18/19 14:59 Last Admin: 03/18/19 03:38 Dose: 82 mls/hr Multivitamins/Minerals 10 ml/Chromium/Copper/Manganese/Seleni/Zn 1 ml/ Amino Ac/ Electrol/Dextrose/Calcium 1,011 mls @ 80 mls/hr IV .BY DURATION [facility] Last Admin: 03/18/19 16:05 Dose: 40 mls/hr Amino Ac/Electrol/Dextrose/Calcium (Clinimix E 5/15) 1,000 mls @ 40 mls/hr IV .BY DURATION [facility] Piperacillin Sod/Tazobactam (Sod 3.375 gm/ Sodium Chloride) 50 mls @ 100 mls/ hr IV Q6H [facility] Last Admin: 03/19/19 04:17 Dose: 100 mls/hr Sodium Chloride (Normal Saline) Confirm Administered Dose 50 mls @ as directed .ROUTE .STK-MED ONE Stop: 03/18/19 21:35 Last Admin: 03/18/19 21:40 Dose: Not Given Propofol (Diprivan 100 Ml) Confirm Administered Dose 100 mls @ as directed .ROUTE .STK-MED ONE Stop: 03/18/19 23:04 Last Admin: 03/19/19 01:04 Dose: Not Given Propofol (Diprivan 100 Ml) 100 mls @ 2.195 mls/hr IV TITRATE [facility]; Protocol Last Titration: 03/27/19 07:00 Dose: 0 mcg/kg/min, 0 mls/hr Heparin Sodium (Porcine) 5,000 (units/ Sodium Chloride) 501 mls @ 0.1 mls/hr IV ASDIRECTED [facility] Last Admin: 03/27/19 15:35 Dose: 1 units/hr, 0.1 mls/hr Sodium Chloride (Normal Saline) 500 mls @ 999 mls/hr IV .BOLUS ONE Stop: 03/19/19 00:00 Last Admin: 03/19/19 00:00 Dose: 999 mls/hr Sodium Chloride (Normal Saline) 1,000 mls @ 20 mls/hr IV ASDIRECTED [facility] Last Admin: 03/30/19 23:53 Dose: 20 mls/hr Sodium Chloride (Normal Saline) 100 mls @ 4 mls/sec IV ASDIRECTED [facility] Stop: 03/19/19 10:00 Last Admin: 03/19/19 07:45 Dose: 4 mls/sec Multivitamins/Minerals 10 ml/Chromium/Copper/Manganese/Seleni/Zn 1 ml/ Amino Ac/ Electrol/Dextrose/Calcium 1,011 mls @ 80 mls/hr IV .BY DURATION [facility] Stop: 03/19/19 20:00 Amino Ac/Electrol/Dextrose/Calcium (Clinimix E 5/15) 1,000 mls @ 80 mls/hr IV .BY DURATION [facility] Stop: 03/19/19 20:00 Last Admin: 03/19/19 08:12 Dose: 80 mls/hr Piperacillin/Tazobactam/ (Dextrose 3.375 gm/ Premix) 50 mls @ 100 mls/hr IV Q6H [facility] Last Admin: 03/25/19 09:29 Dose: 100 mls/hr Multivitamins/Minerals 10 ml/Chromium/Copper/Manganese/Seleni/Zn 1 ml/ Amino Ac/ Electrol/Dextrose/Calcium 1,011 mls @ 82 mls/hr IV .BY DURATION [facility] Stop: 03/23/19 20:00 Last Admin: 03/22/19 21:45 Dose: 82 mls/hr Amino Ac/Electrol/Dextrose/Calcium (Clinimix E 5/15) 1,000 mls @ 82 mls/hr IV .BY DURATION [facility] Stop: 03/23/19 20:00 Last Admin: 03/23/19 11:17 Dose: Not Given Albumin Human (Albumin 25%) 25 gm in 100 mls @ 25 mls/hr IV Q24H [facility] Stop: 03/23/19 11:59 Last Admin: 03/23/19 08:20 Dose: 25 mls/hr Albumin Human (Albumin 25%) 25 gm in 100 mls @ 25 mls/hr IV Q24H [facility] Stop: 03/23/19 15:59 Last Admin: 03/23/19 11:22 Dose: 25 mls/hr Azithromycin 250 mg/ Sodium (Chloride) 150 mls @ 150 mls/hr IV Q24H [facility] Last Admin: 03/24/19 11:55 Dose: 150 mls/hr Potassium Chloride 20 meq/ (Premix) 100 mls @ 50 mls/hr IV ONETIME ONE Stop: 03/21/19 10:59 Last Admin: 03/21/19 09:29 Dose: 50 mls/hr Potassium Chloride 40 meq/ (Premix) 100 mls @ 25 mls/hr IV ONETIME ONE Stop: 03/22/19 13:59 Last Admin: 03/22/19 10:01 Dose: 25 mls/hr Magnesium Sulfate 2 gm/ Premix 50 mls @ 25 mls/hr IV Q6H [facility] Stop: 03/26/19 03:59 Last Admin: 03/24/19 08:07 Dose: 25 mls/hr Potassium Chloride 40 meq/ (Premix) 100 mls @ 25 mls/hr IV ONETIME ONE Stop: 03/23/19 13:59 Last Admin: 03/23/19 09:22 Dose: 25 mls/hr Potassium Chloride 40 meq/ (Premix) 100 mls @ 25 mls/hr IV ONETIME ONE Stop: 03/24/19 13:59 Last Admin: 03/24/19 09:54 Dose: 25 mls/hr Potassium Chloride 40 meq/ (Premix) 100 mls @ 25 mls/hr IV ONETIME ONE Stop: 03/25/19 13:59 Last Admin: 03/25/19 10:32 Dose: 25 mls/hr Fat Emulsion Intravenous (Intralipid 20%) 100 mls @ 8.3 mls/hr IV Q48H [facility] Last Admin: 03/29/19 15:52 Dose: 8.3 mls/hr Magnesium Sulfate 2 gm/ Premix 50 mls @ 25 mls/hr IV Q6H [facility] Stop: 03/30/19 03:59 Last Admin: 03/30/19 03:14 Dose: 25 mls/hr Sodium Chloride (Normal Saline) 75 mls @ 3 mls/sec IV ASDIRECTED [facility] Last Admin: 03/30/19 10:36 Dose: 3 mls/sec Sodium Chloride (Normal Saline) 100 mls @ 3 mls/sec IV ONETIME ONE Stop: 03/30/19 10:27 Last Admin: 03/30/19 19:19 Dose: Not Given Insulin Glargine (Lantus Solostar) 10 units SUBCUT BID [facility] Last Admin: 03/16/19 09:27 Dose: 10 unit Insulin Glargine (Lantus Solostar) 14 units SUBCUT BID [facility] Last Admin: 03/18/19 09:06 Dose: 14 units Insulin Glargine (Lantus Solostar) 7 units SUBCUT BID [facility] Stop: 03/18/19 21:01 Last Admin: 03/18/19 21:25 Dose: Not Given Insulin Human Lispro (Humalog) 0 unit SUBCUT Q6H PRN; Protocol PRN Reason: MEDIUM CORRECTIONAL DOSING Last Admin: 03/14/19 17:42 Dose: 7 units Insulin Human Lispro (Humalog) 15 unit SUBCUT ONETIME ONE Stop: 03/14/19 12:05 Last Admin: 03/14/19 12:10 Dose: 15 units Insulin Human Lispro (Humalog) 0 unit SUBCUT ONETIME ONE Stop: 03/15/19 00:16 Last Admin: 03/15/19 00:25 Dose: 12 units Iohexol (Omnipaque-300) 100 ml IVPUSH . DIRECTED [facility] Iopamidol (Isovue-370 (76%)) 100 ml IV . DIRECTED [facility] Stop: 03/19/19 10:00 Last Admin: 03/19/19 07:45 Dose: 100 ml Iopamidol (Isovue-300 (61%)) 100 ml IV . DIRECTED PRN PRN Reason: RADIOLOGY EXAM Last Admin: 03/30/19 10:36 Dose: 100 ml Levothyroxine Sodium (Synthroid) 100 mcg IVPUSH DAILY [facility] Last Admin: 03/31/19 08:33 Dose: 100 mcg Lidocaine HCl (Xylocaine-Mpf 1%) 5 ml INJECT ONETIME ONE Stop: 03/11/19 05:30 Last Admin: 03/11/19 05:39 Dose: 2 ml Lidocaine/Epinephrine (Xylocaine 1% With Epinephrine 1:100,000) Confirm Administered Dose 50 ml .ROUTE .STK-MED ONE Stop: 03/10/19 06:23 Lidocaine/Epinephrine (Xylocaine 1% With Epinephrine 1:100,000) Confirm Administered Dose 50 ml .ROUTE .STK-MED ONE Stop: 03/11/19 07:19 Last Admin: 03/11/19 07:28 Dose: 15 ml Linezolid (Zyvox) 600 mg IRR .STK-MED ONE Stop: 03/11/19 07:39 Last Admin: 03/11/19 07:38 Dose: 600 mg Lorazepam (Ativan) 0.5 mg IVPUSH BID [facility] Last Admin: 03/09/19 09:09 Dose: 0.5 mg Lorazepam (Ativan) 0.5 mg IVPUSH Q4H PRN PRN Reason: Anxiety Last Admin: 03/27/19 10:07 Dose: 0.5 mg Lorazepam (Ativan) 0.25 mg IVPUSH BID [facility] Last Admin: 03/10/19 09:09 Dose: 0.25 mg Lorazepam (Ativan) 0.5 mg IVPUSH BID [facility] Last Admin: 03/30/19 21:01 Dose: 0.5 mg Meropenem (Merrem) Confirm Administered Dose 500 mg .ROUTE .STK-MED ONE Stop: 03/08/19 12:05 Last Admin: 03/08/19 14:00 Dose: 500 mg Meropenem (Merrem) Confirm Administered Dose 500 mg .ROUTE .STK-MED ONE Stop: 03/10/19 06:23 Meropenem (Merrem) Confirm Administered Dose 500 mg .ROUTE .STK-MED ONE Stop: 03/11/19 06:45 Last Admin: 03/11/19 07:38 Dose: 500 mg Methylprednisolone Sodium Succinate (Solu-Medrol) 40 mg IVPUSH Q6H [facility] Last Admin: 03/20/19 09:50 Dose: 40 mg Methylprednisolone Sodium Succinate (Solu-Medrol) 40 mg IVPUSH Q6H [facility] Last Admin: 04/01/19 10:25 Dose: 40 mg Metoprolol Tartrate (Lopressor) 5 mg IV Q6H [facility] [facility] Last Admin: 03/26/19 07:56 Dose: Not Given Metoprolol Tartrate (Lopressor) 2.5 mg IV Q6H [facility] Last Admin: 03/29/19 05:23 Dose: 2.5 mg Metoprolol Tartrate (Lopressor) 5 mg IV Q6H [facility] Last Admin: 03/31/19 04:53 Dose: 5 mg Naloxone HCl (Narcan) 0.1 mg IV ASDIRECTED PRN PRN Reason: decreased respiratory rate Neostigmine Methylsulfate (Neostigmine) Confirm Administered Dose 5 mg .ROUTE .STK-MED ONE Stop: 03/08/19 12:18 Non-Formulary Medication (Total Parenteral Nutrition, Central) 1,000 ml .XX .Continue Order [facility] Stop: 03/22/19 12:00 Non-Formulary Medication (Total Parenteral Nutrition, Central) 1,000 ml .XX .Continue Order [facility] Stop: 03/23/19 12:00 Non-Formulary Medication (Total Parenteral Nutrition, Central) 1,000 ml .XX .Continue Order [facility] Stop: 03/24/19 15:00 Non-Formulary Medication (Total Parenteral Nutrition, Central) 1,000 ml .XX .Continue Order [facility] Stop: 03/26/19 12:00 Non-Formulary Medication (Total Parenteral Nutrition, Central) 0 ml IV ASDIRECTED [facility] Stop: 03/31/19 13:01 Non-Formulary Medication (Total Parenteral Nutrition, Central) 1,000 ml .XX .Continue Order [facility] Stop: 04/01/19 10:00 Nystatin (Nystop) 0 gm TOP QID [facility] Last Admin: 03/31/19 11:05 Dose: 1 applic Ondansetron HCl (Zofran) Confirm Administered Dose 4 mg .ROUTE .STK-MED ONE Stop: 03/08/19 12:18 Ondansetron HCl (Zofran) 4 mg IVPUSH Q6H PRN PRN Reason: Nausea/Vomiting Pantoprazole Sodium (Protonix Iv) 40 mg IV Q24H [facility] Last Admin: 03/30/19 17:44 Dose: 40 mg Piperacillin Sod/Tazobactam Sod (Zosyn) Confirm Administered Dose 3.375 gm .ROUTE .STK-MED ONE Stop: 03/18/19 21:34 Last Admin: 03/18/19 21:40 Dose: Not Given Propofol (Diprivan 20 Ml) Confirm Administered Dose 200 mg .ROUTE .STK-MED ONE Stop: 03/08/19 12:18 Propofol (Diprivan 20 Ml) Confirm Administered Dose 200 mg .ROUTE .STK-MED ONE Stop: 03/10/19 07:33 Rocuronium [place] (Zemuron) Confirm Administered Dose 50 mg .ROUTE .STK-MED ONE Stop: 03/08/19 12:18 Scopolamine (Transderm-Scop) 1.5 mg TRDERM Q72H [facility] Last Admin: 03/28/19 10:35 Dose: 1.5 mg Sodium Chloride (Saline Flush) 10 ml FLUSH ONETIME ONE Stop: 03/30/19 10:02 Last Admin: 03/30/19 10:35 Dose: 10 ml Sodium Chloride (Saline Flush) 10 ml FLUSH ONETIME PRN PRN Reason: PER RADIOLOGY PROTOCOL Succinylcholine Chloride (Quelicin) Confirm Administered Dose 200 mg .ROUTE .STK -MED ONE Stop: 03/08/19 12:18 Succinylcholine Chloride (Quelicin) Confirm Administered Dose 200 mg .ROUTE .STK -MED ONE Stop: 03/10/19 07:33 - Exam Quality Assessment: Central Line/PICC, DVT Prophylaxis. No: Urine Catheter General: Alert, Cooperative, No Acute Distress. No: Oriented Lungs: Clear to Auscultation, Normal Respiratory Effort Cardiovascular: Regular Rate, Regular Rhythm, No Murmurs GI/Abdominal Exam: Soft, Non-Tender, No Organomegaly, No Distention - Problem List Review Problem List Initiated/Reviewed/Updated: Yes - My Orders Last 24 Hours: My Active Orders 03/31/19 10:30 LORazepam [Ativan] 1 mg PO BID 03/31/19 16:00 Nystatin [Nystop] 0 gm TOP QID 03/31/19 21:00 Divalproex Sodium 1,500 mg PO BEDTIME Famotidine [Pepcid] 40 mg PO BID Haloperidol [Haldol] 10 mg PO BID cloZAPine [Clozapine] 0 mg PO BEDTIME 04/01/19 07:30 Levothyroxine [Synthroid] 88 mcg PO ACBREAKFAST 04/01/19 09:00 Docusate Sodium/Sennosides [Senna Plus] 1 tab PO DAILY 04/01/19 10:45 methylPREDNISolone Sod Succ [Solu-MEDROL] 40 mg IVPUSH Q12H 04/01/19 Lunch GI Soft Low Fiber [Soft Diet] [DIET] 04/02/19 05:00 BASIC METABOLIC PANEL,BMP [CHEM] Timed CBC WITH AUTO DIFF [HEME] Timed MAGNESIUM [CHEM] Timed - Plan Plan:: ASSESSMENT AND PLAN - Acute respiratory failure with hypoxia and hypercapnia - Overall fairly stable since extubation 5 days ago. Secretions have come under better control over the past few days. -Racemic epinephrine nebulizer as needed for stridor and laryngeal spasm -Supplement oxygen -Vigorous pulmonary toilet -Continue meropenem and Solu-Medrol and additional 24 hours Small bowel obstruction with pneumatosis - status post emergent laparotomy with small bowel resection and right colectomy 03/08. Abdomen not distended. He is having bowel movements. -Postoperative care per surgical team -He is receiving TPN -Pain control Type 2 diabetes mellitus - blood sugar levels have remained in goal range. -Continue glucometers every 6 hours -Continue insulin in the TPN -High dose sliding scale Humalog Hypokalemia - potassium level normal today. -Recheck in the morning Severe schizophrenia - patient is very debilitated because of his psychiatric illness. Now that he is extubated hopefully we can get his regular medications on board in the near future. -Resume usual oral medications Acute kidney injury - resolved -Continue to closely monitor urine output and renal function Maintenance issues - - DVT prophylaxis - mechanical - GI prophylaxis - oral H2 holden - Nutrition - nothing by mouth, currently receiving TPN for nutritional support. We may try some liquids and medications later in the day - Rodriguez catheter - placed for strict intake and output monitoring with a critical patient Disposition - anticipate discharge home versus more likely the half-way. the patient's hospital stay has been greatly prolonged by multiple unforeseen complications including prolonged return of bowel function postoperatively, aspiration leading to respiratory failure and reintubation.
[2019-04-01] MEDS: Divalproex Sodium Delayed-Release 250 MG Tab.CR PO SCH (20:01)
[2019-04-01] MEDS: CLOZAPINE 100 MG PO SCH (21:18)
[2019-04-01] MEDS: Latanoprost 0.005% Ophth Soln 2.5 ML Bottle EYEBOTH SCH (21:18)
[2019-04-01] MEDS ORDERED: methylPREDNISolone Sodium Succinate 40 MG/1 ML SDV IVPUSH SCH (22:00)
[2019-04-02] MEDS: 1: AA 5%/Calcium/D15W/Lytes 1,000 ML with MVI, Adult with Vitamin K 10 ML, Chromium/Copp IV SCH ×3 (02:05)
[2019-04-02] MEDS: LORazepam 2 MG/ML SDV IVPUSH PRN (02:21)
[2019-04-02] MEDS: Haloperidol Lactate 5 MG/ML SDV IVPUSH PRN (05:33)
[2019-04-02] MEDS: Nystatin Topical Powder 15 GM Bottle TOP SCH ×4 (05:35→21:09)
[2019-04-02] MEDS: Sodium Chloride 5% Ophth Soln 15 ML Bottle EYEBOTH SCH ×4 (05:35→21:10)
[2019-04-02] MEDS: Albuterol/Ipratropium 3.0-0.5 MG/3 ML Neb Soln INH SCH ×4 (07:13→21:06)
[2019-04-02] MEDS ORDERED: Central Total Parenteral Nutrition Bag SCH (07:30)
[2019-04-02] MEDS: Levothyroxine 88 MCG Tab PO SCH (08:02)
[2019-04-02] MEDS: LORazepam 1 MG Tab PO SCH ×2 (08:11→21:06)
[2019-04-02] MEDS: Atenolol 50 MG Tab PO SCH (08:12)
[2019-04-02] MEDS: Doxazosin 4 MG Tab PO SCH (08:14)
[2019-04-02] MEDS: Docusate Sodium 100 MG Cap PO SCH ×2 (08:15→21:07)
[2019-04-02] MEDS: Haloperidol 5 MG Tab PO SCH ×2 (08:16→21:08)
[2019-04-02] MEDS: Famotidine 20 MG Tab PO SCH ×2 (08:18→21:08)
[2019-04-02] MEDS: SCOPOLAMINE PATCH CHECK TOP SCH (08:19)
[2019-04-02] MEDS: Insulin Glargine,Human Rec. Analog 100 Units/ML 3 ML Pen SUBCUT SCH ×2 (08:24→20:57)
[2019-04-02] MEDS: Insulin Lispro 100 Unit/ML 3 ML KwikPen SUBCUT SCH (08:26)
[2019-04-02] MEDS ORDERED: Magnesium Sulfate/Water 2 GM in Premix Bag 1 BAG IV ONE (08:48)
[2019-04-02] MEDS ORDERED: Magnesium Sulfate/Water 2 GM in Premix Bag 1 BAG IV SCH (09:00)
--- NOTE | 2019-04-02 09:16 | PCM.PN ---
- General Info Date of Service: 04/02/19 - Patient Data Vitals - Most Recent: Last Vital Signs Temp 97.4 F 04/02/19 04:00 Pulse 94 04/02/19 08:12 Resp 17 04/02/19 06:00 BP 159/83 H 04/02/19 08:14 Pulse Ox 98 04/02/19 07:13 Weight - Most Recent: 158 lb 1.143 oz I&O - Last 24 Hours: Intake & Output 04/01/19 04/02/19 04/02/19 22:59 06:59 14:59 Intake Total 1773 1316 Balance 1773 1316 Lab Results Last 24 Hours: Laboratory Results - last 24 hr 04/02/19 04/02/19 04/02/19 Range/Units 04:07 04:07 04:07 WBC 11.8 H (4.5-11.0) K/uL RBC 3.28 L (4.30-5.90) M/uL Hgb 9.3 L (12.0-15.0) g/dL Hct 30.8 L (40.0-54.0) % MCV 94 (80-98) fL MCH 28 (27-31) pg MCHC 30 L (32-36) % Plt Count 367 (150-400) K/uL Add Manual Diff Yes Neutrophils % (Manual) 81 H (36-66) % Band Neutrophils % 2 L (5-11) % Lymphocytes % (Manual) 11 L (24-44) % Monocytes % (Manual) 6 (2-6) % Sodium 142 (140-148) mmol/L Potassium 4.8 (3.6-5.2) mmol/L Chloride 108 (100-108) mmol/L Carbon Dioxide 27 (21-32) mmol/L Anion Gap 7.2 (5.0-14.0) mmol/L BUN 34 H (7-18) mg/dL Creatinine 0.9 (0.8-1.3) mg/dL Est Cr Clr Drug Dosing 74.91 mL/min Estimated GFR (MDRD) > 60 (>60) Glucose 195 H (74-106) mg/dL Calcium 8.8 (8.5-10.1) mg/dL Magnesium 1.7 L D (1.8-2.4) mg/dL Total Bilirubin 0.5 (0.2-1.0) mg/dL AST 55 H (15-37) U/L ALT 104 H (12-78) U/L Alkaline Phosphatase 200 H (46-116) U/L Total Protein 6.1 L (6.4-8.2) g/dL Albumin 2.8 L (3.4-5.0) g/dL Globulin 3.3 (2.3-3.5) g/dL Albumin/Globulin Ratio 0.9 L (1.2-2.2) Med Orders - Current: Current Medications Albuterol (Proventil Neb Soln) 2.5 mg NEB Q4H PRN PRN Reason: Shortness Of Breath/wheezing Last Admin: 03/10/19 00:24 Dose: 2.5 mg Albuterol/Ipratropium (Duoneb 3.0-0.5 Mg/3 Ml) 3 ml INH QIDRT [facility] Last Admin: 04/02/19 07:13 Dose: 3 ml Atenolol (Tenormin) 100 mg PO DAILY [facility] Last Admin: 04/02/19 08:12 Dose: 100 mg Dextrose (Glutose 15) 15 gm PO ASDIRECTED PRN PRN Reason: HYPOGLYCEMIA Dextrose/Water (Dextrose 50% In Water) 50 ml IVPUSH ASDIRECTED PRN PRN Reason: HYPOGLYCEMIA Diphenhydramine HCl (Benadryl) 25 mg IVPUSH Q4H PRN PRN Reason: Itching Last Admin: 04/01/19 01:49 Dose: 25 mg Divalproex Sodium (Divalproex Sodium) 1,500 mg PO BEDTIME [facility] Last Admin: 04/01/19 20:01 Dose: 1,500 mg Docusate Sodium (Colace) 100 mg PO BID [facility] Last Admin: 04/02/19 08:15 Dose: Not Given Doxazosin Mesylate (Cardura) 4 mg PO DAILY [facility] Last Admin: 04/02/19 08:14 Dose: 4 mg Famotidine (Pepcid) 40 mg PO BID [facility] Last Admin: 04/02/19 08:18 Dose: 40 mg Glucagon (Glucagen) 1 mg IM ASDIRECTED PRN PRN Reason: HYPOGLYCEMIA Haloperidol (Haldol) 10 mg PO BID [facility] Last Admin: 04/02/19 08:16 Dose: 10 mg Haloperidol Lactate (Haldol) 2 mg IVPUSH Q4H PRN PRN Reason: Agitation Last Admin: 04/02/19 05:33 Dose: 2 mg Heparin Sodium (Porcine) (Heparin Lock Flush 100 Units/Ml) 500 units FLUSH ASDIRECTED PRN PRN Reason: Keep Vein Open Last Admin: 03/31/19 00:00 Dose: 500 units Meropenem 1 gm/ Sodium (Chloride) 50 mls @ 100 mls/hr IV Q8H [facility] Last Admin: 04/02/19 08:06 Dose: 100 mls/hr Magnesium Sulfate 2 gm/ Premix 50 mls @ 25 mls/hr IV Q6H [facility] Stop: 04/02/19 10:00 Multivitamins/Minerals 10 ml/Chromium/Copper/Manganese/Seleni/Zn 1 ml/ Amino Ac/ Electrol/Dextrose/Calcium 1,011 mls @ 40 mls/hr IV .BY DURATION [facility] Amino Ac/Electrol/Dextrose/Calcium (Clinimix E 5/15) 1,000 mls @ 40 mls/hr IV .BY DURATION [facility] Insulin Glargine (Lantus Solostar) 12 units SUBCUT BID [facility] Last Admin: 04/02/19 08:24 Dose: 12 units Insulin Human Lispro (Humalog) 0 unit SUBCUT ASDIRECTED [facility]; Protocol Last Admin: 04/02/19 08:26 Dose: 3 units Latanoprost (Xalatan 0.005% Ophth Soln) 0 ml EYEBOTH BEDTIME [facility] Last Admin: 04/01/19 21:18 Dose: 1 drop Levothyroxine Sodium (Synthroid) 88 mcg PO ACBREAKFAST [facility] Last Admin: 04/02/19 08:02 Dose: 88 mcg Lorazepam (Ativan) 1 mg IVPUSH Q1H PRN PRN Reason: Anxiety Last Admin: 04/02/19 02:21 Dose: 1 mg Lorazepam (Ativan) 1 mg PO BID [facility] Last Admin: 04/02/19 08:11 Dose: 1 mg Magnesium Oxide (Magnesium Oxide) 400 mg PO BID [facility] Methylprednisolone Sodium Succinate (Solu-Medrol) 40 mg IVPUSH Q12H [facility] Last Admin: 04/01/19 21:19 Dose: 40 mg Morphine Sulfate (Morphine) 2 mg IVPUSH Q1H PRN PRN Reason: Other Last Admin: 03/31/19 01:30 Dose: 2 mg Scopolamine Patch (Check) 1 each TOP DAILY [facility] Last Admin: 04/02/19 08:19 Dose: Not Given Clozapine 100mg (Ptom) 0 mg PO BEDTIME [facility] Last Admin: 04/01/19 21:18 Dose: 450 mg Non-Formulary Medication (Total Parenteral Nutrition, Central) 1,000 ml .XX .Continue Order [facility] Stop: 04/02/19 10:00 Nystatin (Nystop) 0 gm TOP QID [facility] Last Admin: 04/02/19 05:35 Dose: 1 applic Ondansetron HCl (Zofran) 4 mg IVPUSH Q4H PRN PRN Reason: Nausea/Vomiting Last Admin: 03/18/19 17:31 Dose: 4 mg Racepinephrine (S-2 2.25%) 0.5 ml NEB Q2H PRN PRN Reason: Shortness of Breath Last Admin: 03/28/19 00:32 Dose: 0.5 ml Senna/Docusate Sodium (Senna Plus) 1 tab PO DAILY [facility] Last Admin: 04/02/19 08:13 Dose: 1 tab Sodium Chloride (Joseph 128 5% Ophth Soln) 0 ml EYEBOTH QID [facility] Last Admin: 04/02/19 05:35 Dose: 1 drop Sodium Chloride (Sodium Chloride 0.9%) 3 ml INH ASDIRECTED PRN PRN Reason: mix with racepinephrine neb Last Admin: 03/28/19 00:35 Dose: 3 ml Zinc Acetate/Diphenhydramine (Banophen Anti-Itch 2% Crm) 0 gm TOP QID PRN PRN Reason: Perineal Comfort Measure Discontinued Medications Acetylcysteine (Mucomyst 20%) 400 mg INH BIDRT [facility] Last Admin: 03/12/19 07:48 Dose: 200 mg Acetylcysteine (Mucomyst 20%) 200 mg INH BIDRT [facility] Stop: 03/12/19 23:59 Last Admin: 03/12/19 20:44 Dose: 200 mg Acetylcysteine (Mucomyst 20%) 200 mg NEB BIDRT [facility] Last Admin: 03/27/19 07:06 Dose: 200 mg Atropine Sulfate (Atropine 1%) 0 ml SL BID [facility] Last Admin: 03/29/19 09:06 Dose: 4 drop Bisacodyl (Dulcolax) 10 mg PO BID [facility] Last Admin: 03/17/19 20:35 Dose: Not Given Bisacodyl (Dulcolax) 10 mg RECTAL ONETIME ONE Stop: 03/17/19 17:01 Last Admin: 03/17/19 17:10 Dose: 10 mg Bupivacaine HCl (Marcaine 0.5%) Confirm Administered Dose 50 ml .ROUTE .STK-MED ONE Stop: 03/10/19 06:23 Bupivacaine HCl (Marcaine 0.5%) Confirm Administered Dose 50 ml .ROUTE .ST-MED ONE Stop: 03/11/19 07:19 Last Admin: 03/11/19 07:28 Dose: 15 ml Ropivacaine 36 ml/Dexamethasone 8 mg/Epinephrine HCl 0.4 mg/ Sodium Chloride 41.6 ml 0 ml NERVRT ASDIRECTED [facility] Last Admin: 03/08/19 15:05 Dose: 80 syringe Ropivacaine 36 ml/Dexamethasone 8 mg/Epinephrine HCl 0.4 mg/ Sodium Chloride 41.6 ml 0 ml NERVRT ASDIRECTED [facility] Last Admin: 03/11/19 07:41 Dose: 80 syringe Dexamethasone (Dexamethasone) Confirm Administered Dose 4 mg .ROUTE .[facility]-MED ONE Stop: 03/08/19 12:18 Dimethicone/Zinc Oxide (Rash Relief-Zinc Oxide [place]) 0 gm TOP ASDIRECTED PRN PRN Reason: Perineal Comfort Measure Last Admin: 03/29/19 15:40 Dose: 6 spray Diphenhydramine HCl (Benadryl) 25 mg IVPUSH Q6H PRN PRN Reason: Itching Diphenhydramine HCl (Benadryl) 25 mg PO Q6H PRN PRN Reason: Itching Fentanyl (Sublimaze) Confirm Administered Dose 250 mcg .ROUTE .[facility]-MED ONE Stop: 03/08/19 12:19 Furosemide (Lasix) 20 mg IVPUSH ONETIME ONE Stop: 03/09/19 21:56 Last Admin: 03/09/19 22:10 Dose: 20 mg Furosemide (Lasix) Confirm Administered Dose 20 mg .ROUTE .STK-MED ONE Stop: 03/09/19 22:05 Last Admin: 03/09/19 22:10 Dose: Not Given Furosemide (Lasix) 20 mg IVPUSH ONETIME ONE Stop: 03/10/19 06:33 Last Admin: 03/10/19 07:20 Dose: 20 mg Furosemide (Lasix) 20 mg IVPUSH ONETIME ONE Stop: 03/12/19 18:01 Last Admin: 03/12/19 17:43 Dose: 20 mg Furosemide (Lasix) 20 mg IVPUSH ONETIME ONE Stop: 03/12/19 07:31 Last Admin: 03/12/19 07:44 Dose: 20 mg Furosemide (Lasix) 10 mg IVPUSH Q12H [facility] Stop: 03/13/19 21:01 Last Admin: 03/13/19 20:29 Dose: 10 mg Furosemide (Lasix) 20 mg IVPUSH NOW ONE Stop: 03/15/19 11:31 Last Admin: 03/15/19 11:38 Dose: 20 mg Furosemide (Lasix) 20 mg IVPUSH ONETIME ONE Stop: 03/16/19 13:31 Last Admin: 03/16/19 14:18 Dose: 20 mg Furosemide (Lasix) 20 mg IVPUSH NOW ONE Stop: 03/17/19 09:16 Last Admin: 03/17/19 09:47 Dose: 20 mg Furosemide (Lasix) 20 mg IVPUSH Q12H [facility] Stop: 03/22/19 21:31 Last Admin: 03/22/19 22:10 Dose: 20 mg Furosemide (Lasix) 20 mg IVPUSH Q12H [facility] Stop: 03/23/19 22:01 Last Admin: 03/23/19 22:47 Dose: 20 mg Furosemide (Lasix) 20 mg IVPUSH Q8H [facility] Stop: 03/25/19 02:01 Last Admin: 03/25/19 02:11 Dose: 20 mg Furosemide (Lasix) 20 mg IVPUSH Q12H [facility] Last Admin: 03/25/19 21:32 Dose: 20 mg Furosemide (Lasix) 20 mg IVPUSH Q8H [facility] Last Admin: 03/28/19 09:14 Dose: 20 mg Furosemide (Lasix) 20 mg IVPUSH Q12H [facility] Last Admin: 03/28/19 21:46 Dose: 20 mg Glycopyrrolate (Robinul) Confirm Administered Dose 1 mg .ROUTE .STK-MED ONE Stop: 03/08/19 12:18 Haloperidol Lactate (Haldol) 5 mg IVPUSH BID [facility] Last Admin: 03/09/19 09:06 Dose: 5 mg Haloperidol Lactate (Haldol) 2.5 mg IVPUSH BID [facility] Last Admin: 03/31/19 08:37 Dose: 2.5 mg Heparin Sodium (Porcine) (Heparin Sodium) Confirm Administered Dose 5,000 units .ROUTE .[facility] ONE Stop: 03/10/19 07:04 Last Admin: 03/10/19 07:57 Dose: Not Given Heparin Sodium (Porcine) (Heparin Lock Flush 100 Units/Ml) Confirm Administered Dose 1,000 units .ROUTE .[facility] ONE Stop: 03/11/19 07:32 Last Admin: 03/11/19 08:31 Dose: Not Given Heparin Sodium (Porcine) (Heparin Sodium) Confirm Administered Dose 5,000 units .ROUTE .[facility] ONE Stop: 03/18/19 23:03 Last Admin: 03/19/19 02:36 Dose: Not Given Hydromorphone HCl (Dilaudid [place] 15 Mg In Ns 30 Ml) 0 mg IV ASDIRECTED PRN; Protocol PRN Reason: PAIN Last Admin: 03/16/19 16:43 Dose: 15 mg Sodium Chloride (Normal Saline) 1,000 mls @ 1,000 mls/hr IV ASDIRECTED [facility] Last Admin: 03/08/19 10:02 Dose: 1,000 mls/hr Ampicillin Sodium/Sulbactam (Sodium 1.5 gm/ Sodium Chloride) 50 mls @ 100 mls/ hr IV Q6H [facility] Last Admin: 03/08/19 13:30 Dose: 100 mls/hr Aztreonam 1 gm/ Sodium (Chloride) 50 mls @ 100 mls/hr IV Q12H [facility] Last Admin: 03/08/19 13:30 Dose: 100 mls/hr Lactated Ringer's (Ringers, Lactated) 1,000 mls @ 150 mls/hr IV ASDIRECTED [facility] Last Admin: 03/08/19 13:31 Dose: 150 mls/hr Lactated Ringer's (Ringers, Lactated) Confirm Administered Dose 1,000 mls @ as directed .ROUTE .[facility] ONE Stop: 03/08/19 15:16 Lactated Ringer's (Ringers, Lactated) 1,000 mls @ 100 mls/hr IV ASDIRECTED [facility] Last Admin: 03/09/19 03:26 Dose: 100 mls/hr Dextrose/Lactated Ringer's (Dextrose 5%-Lactated Ringers) 1,000 mls @ 100 mls/ hr IV ASDIRECTED [facility] Stop: 03/12/19 11:59 Last Admin: 03/11/19 23:35 Dose: 100 mls/hr Ampicillin Sodium/Sulbactam (Sodium 3 gm/ Sodium Chloride) 100 mls @ 200 mls/ hr IV Q6H [facility] Last Admin: 03/13/19 05:19 Dose: 200 mls/hr Aztreonam 1 gm/ Sodium (Chloride) 50 mls @ 100 mls/hr IV Q8H [facility] Last Admin: 03/13/19 04:23 Dose: 100 mls/hr Valproic Acid 500 mg/ Sodium (Chloride) 55 mls @ 55 mls/hr IV Q8H [facility] Last Admin: 03/31/19 04:58 Dose: 55 mls/hr Potassium Chloride 20 meq/Lidocaine HCl 2 ml/ Sodium Chloride 112 mls @ 56 mls/ hr IV Q2H [facility] Stop: 03/09/19 15:59 Last Admin: 03/09/19 17:30 Dose: 56 mls/hr Lactated Ringer's (Ringers, Lactated) 750 mls @ 750 mls/hr IV BOLUS ONE Stop: 03/09/19 16:25 Last Admin: 03/09/19 15:53 Dose: 750 mls/hr Lactated Ringer's (Ringers, Lactated) 750 mls @ 999 mls/hr IV BOLUS ONE Stop: 03/09/19 21:15 Last Admin: 03/09/19 21:08 Dose: 999 mls/hr Heparin Sodium (Porcine) 5,000 (units/ Sodium Chloride) 501 mls @ 5 mls/hr IV ASDIRECTED [facility] Last Admin: 03/12/19 13:58 Dose: 5 mls/hr Propofol (Diprivan 100 Ml) 100 mls @ 2.191 mls/hr IV TITRATE [facility]; Protocol Last Titration: 03/15/19 07:18 Dose: 0 mcg/kg/min, 0 mls/hr Linezolid 600 mg/ Premix 300 mls @ 300 mls/hr IV Q12H [facility] Last Admin: 03/11/19 21:53 Dose: 300 mls/hr Potassium Chloride 20 meq/Lidocaine HCl 2 ml/ Sodium Chloride 112 mls @ 56 mls/ hr IV Q2H [facility] Stop: 03/10/19 16:29 Last Admin: 03/10/19 16:07 Dose: 56 mls/hr Potassium Chloride 20 meq/ (Premix) 0 mls @ 50 mls/hr IV Q2H [facility] Stop: 03/11/19 07:28 Last Admin: 03/11/19 07:32 Dose: 50 mls/hr Magnesium Sulfate 2 gm/ Premix 50 mls @ 25 mls/hr IV Q6H [facility] Last Admin: 03/12/19 04:27 Dose: 25 mls/hr Potassium Phosphate 20 mmole/ (Sodium Chloride) 256.6667 mls @ 85 mls/hr IV Q3H [facility] Stop: 03/11/19 17:59 Last Admin: 03/11/19 14:42 Dose: 85 mls/hr Multivitamins/Minerals 10 ml/Chromium/Copper/Manganese/Seleni/Zn 1 ml/ Amino Ac/ Electrol/Dextrose/Calcium 1,011 mls @ 82 mls/hr IV .BY DURATION [facility] Last Admin: 03/13/19 12:34 Dose: 82 mls/hr Amino Ac/Electrol/Dextrose/Calcium (Clinimix E 12/08) 1,000 mls @ 82 mls/hr IV .BY DURATION [facility] Last Admin: 03/14/19 01:20 Dose: 82 mls/hr Sodium Chloride (Normal Saline) 1,000 mls @ 20 mls/hr IV ASDIRECTED [facility] Last Admin: 03/13/19 22:58 Dose: 20 mls/hr Potassium Phosphate 20 mmole/ (Sodium Chloride) 256.6667 mls @ 85.556 mls/hr IV Q3H [facility] Stop: 03/12/19 16:59 Last Admin: 03/12/19 14:49 Dose: 85.556 mls/hr Potassium Chloride 20 meq/ (Premix) 100 mls @ 50 mls/hr IV ONETIME ONE Stop: 03/13/19 10:59 Last Admin: 03/13/19 09:29 Dose: 50 mls/hr Potassium Phosphate 30 mmole/ (Sodium Chloride) 110 mls @ 30 mls/hr IV ONETIME ONE Stop: 03/13/19 14:39 Last Admin: 03/13/19 12:14 Dose: 30 mls/hr Linezolid 600 mg/ Premix 300 mls @ 300 mls/hr IV Q12H [facility] Last Admin: 03/20/19 09:52 Dose: 300 mls/hr Magnesium Sulfate 2 gm/ Premix 50 mls @ 25 mls/hr IV Q6H [facility] Stop: 03/16/19 03:59 Last Admin: 03/16/19 01:59 Dose: 25 mls/hr Azithromycin 250 mg/ Sodium (Chloride) 150 mls @ 150 mls/hr IV Q12H [facility] Azithromycin 250 mg/ Sodium (Chloride) 150 mls @ 150 mls/hr IV Q24H [facility] Last Admin: 03/17/19 11:28 Dose: 150 mls/hr Multivitamins/Minerals 10 ml/Chromium/Copper/Manganese/Seleni/Zn 1 ml/ Amino Ac/ Electrol/Dextrose/Calcium 1,011 mls @ 82 mls/hr IV .BY DURATION [facility] Stop: 03/18/19 14:59 Last Admin: 03/17/19 14:26 Dose: 82 mls/hr Amino Ac/Electrol/Dextrose/Calcium (Clinimix E 5/15) 1,000 mls @ 82 mls/hr IV .BY DURATION [facility] Stop: 03/18/19 14:59 Last Admin: 03/18/19 03:38 Dose: 82 mls/hr Multivitamins/Minerals 10 ml/Chromium/Copper/Manganese/Seleni/Zn 1 ml/ Amino Ac/ Electrol/Dextrose/Calcium 1,011 mls @ 80 mls/hr IV .BY DURATION [facility] Last Admin: 03/18/19 16:05 Dose: 40 mls/hr Amino Ac/Electrol/Dextrose/Calcium (Clinimix E 5/15) 1,000 mls @ 40 mls/hr IV .BY DURATION [facility] Piperacillin Sod/Tazobactam (Sod 3.375 gm/ Sodium Chloride) 50 mls @ 100 mls/ hr IV Q6H [facility] Last Admin: 03/19/19 04:17 Dose: 100 mls/hr Sodium Chloride (Normal Saline) Confirm Administered Dose 50 mls @ as directed .ROUTE .STK-MED ONE Stop: 03/18/19 21:35 Last Admin: 03/18/19 21:40 Dose: Not Given Propofol (Diprivan 100 Ml) Confirm Administered Dose 100 mls @ as directed .ROUTE .STK-MED ONE Stop: 03/18/19 23:04 Last Admin: 03/19/19 01:04 Dose: Not Given Propofol (Diprivan 100 Ml) 100 mls @ 2.195 mls/hr IV TITRATE [facility]; Protocol Last Titration: 03/27/19 07:00 Dose: 0 mcg/kg/min, 0 mls/hr Heparin Sodium (Porcine) 5,000 (units/ Sodium Chloride) 501 mls @ 0.1 mls/hr IV ASDIRECTED [facility] Last Admin: 03/27/19 15:35 Dose: 1 units/hr, 0.1 mls/hr Sodium Chloride (Normal Saline) 500 mls @ 999 mls/hr IV .BOLUS ONE Stop: 03/19/19 00:00 Last Admin: 03/19/19 00:00 Dose: 999 mls/hr Sodium Chloride (Normal Saline) 1,000 mls @ 20 mls/hr IV ASDIRECTED [facility] Last Admin: 03/30/19 23:53 Dose: 20 mls/hr Sodium Chloride (Normal Saline) 100 mls @ 4 mls/sec IV ASDIRECTED [facility] Stop: 03/19/19 10:00 Last Admin: 03/19/19 07:45 Dose: 4 mls/sec Multivitamins/Minerals 10 ml/Chromium/Copper/Manganese/Seleni/Zn 1 ml/ Amino Ac/ Electrol/Dextrose/Calcium 1,011 mls @ 80 mls/hr IV .BY DURATION [facility] Stop: 03/19/19 20:00 Amino Ac/Electrol/Dextrose/Calcium (Clinimix E 515) 1,000 mls @ 80 mls/hr IV .BY DURATION [facility] Stop: 03/19/19 20:00 Last Admin: 03/19/19 08:12 Dose: 80 mls/hr Piperacillin/Tazobactam/ (Dextrose 3.375 gm/ Premix) 50 mls @ 100 mls/hr IV Q6H [facility] Last Admin: 03/25/19 09:29 Dose: 100 mls/hr Multivitamins/Minerals 10 ml/Chromium/Copper/Manganese/Seleni/Zn 1 ml/ Amino Ac/ Electrol/Dextrose/Calcium 1,011 mls @ 82 mls/hr IV .BY DURATION [facility] Stop: 03/23/19 20:00 Last Admin: 03/22/19 21:45 Dose: 82 mls/hr Amino Ac/Electrol/Dextrose/Calcium (Clinimix E 5/15) 1,000 mls @ 82 mls/hr IV .BY DURATION [facility] Stop: 03/23/19 20:00 Last Admin: 03/23/19 11:17 Dose: Not Given Albumin Human (Albumin 25%) 25 gm in 100 mls @ 25 mls/hr IV Q24H [facility] Stop: 03/23/19 11:59 Last Admin: 03/23/19 08:20 Dose: 25 mls/hr Albumin Human (Albumin 25%) 25 gm in 100 mls @ 25 mls/hr IV Q24H [facility] Stop: 03/23/19 15:59 Last Admin: 03/23/19 11:22 Dose: 25 mls/hr Azithromycin 250 mg/ Sodium (Chloride) 150 mls @ 150 mls/hr IV Q24H [facility] Last Admin: 03/24/19 11:55 Dose: 150 mls/hr Potassium Chloride 20 meq/ (Premix) 100 mls @ 50 mls/hr IV ONETIME ONE Stop: 03/21/19 10:59 Last Admin: 03/21/19 09:29 Dose: 50 mls/hr Potassium Chloride 40 meq/ (Premix) 100 mls @ 25 mls/hr IV ONETIME ONE Stop: 03/22/19 13:59 Last Admin: 03/22/19 10:01 Dose: 25 mls/hr Magnesium Sulfate 2 gm/ Premix 50 mls @ 25 mls/hr IV Q6H [facility] Stop: 03/26/19 03:59 Last Admin: 03/24/19 08:07 Dose: 25 mls/hr Potassium Chloride 40 meq/ (Premix) 100 mls @ 25 mls/hr IV ONETIME ONE Stop: 03/23/19 13:59 Last Admin: 03/23/19 09:22 Dose: 25 mls/hr Multivitamins/Minerals 10 ml/Chromium/Copper/Manganese/Seleni/Zn 1 ml/ Amino Ac/ Electrol/Dextrose/Calcium 1,011 mls @ 82 mls/hr IV .BY DURATION [facility] Last Admin: 04/02/19 02:05 Dose: 82 mls/hr Amino Ac/Electrol/Dextrose/Calcium (Clinimix E 5/15) 1,000 mls @ 82 mls/hr IV .BY DURATION [facility] Last Admin: 04/01/19 14:27 Dose: 82 mls/hr Potassium Chloride 40 meq/ (Premix) 100 mls @ 25 mls/hr IV ONETIME ONE Stop: 03/24/19 13:59 Last Admin: 03/24/19 09:54 Dose: 25 mls/hr Potassium Chloride 40 meq/ (Premix) 100 mls @ 25 mls/hr IV ONETIME ONE Stop: 03/25/19 13:59 Last Admin: 03/25/19 10:32 Dose: 25 mls/hr Fat Emulsion Intravenous (Intralipid 20%) 100 mls @ 8.3 mls/hr IV Q48H [facility] Last Admin: 03/29/19 15:52 Dose: 8.3 mls/hr Magnesium Sulfate 2 gm/ Premix 50 mls @ 25 mls/hr IV Q6H [facility] Stop: 03/30/19 03:59 Last Admin: 03/30/19 03:14 Dose: 25 mls/hr Sodium Chloride (Normal Saline) 75 mls @ 3 mls/sec IV ASDIRECTED [facility] Last Admin: 03/30/19 10:36 Dose: 3 mls/sec Sodium Chloride (Normal Saline) 100 mls @ 3 mls/sec IV ONETIME ONE Stop: 03/30/19 10:27 Last Admin: 03/30/19 19:19 Dose: Not Given Insulin Glargine (Lantus Solostar) 10 units SUBCUT BID [facility] Last Admin: 03/16/19 09:27 Dose: 10 unit Insulin Glargine (Lantus Solostar) 14 units SUBCUT BID [facility] Last Admin: 03/18/19 09:06 Dose: 14 units Insulin Glargine (Lantus Solostar) 7 units SUBCUT BID [facility] Stop: 03/18/19 21:01 Last Admin: 03/18/19 21:25 Dose: Not Given Insulin Human Lispro (Humalog) 0 unit SUBCUT Q6H PRN; Protocol PRN Reason: MEDIUM CORRECTIONAL DOSING Last Admin: 03/14/19 17:42 Dose: 7 units Insulin Human Lispro (Humalog) 15 unit SUBCUT ONETIME ONE Stop: 03/14/19 12:05 Last Admin: 03/14/19 12:10 Dose: 15 units Insulin Human Lispro (Humalog) 0 unit SUBCUT ONETIME ONE Stop: 03/15/19 00:16 Last Admin: 03/15/19 00:25 Dose: 12 units Iohexol (Omnipaque-300) 100 ml IVPUSH . DIRECTED [facility] Iopamidol (Isovue-370 (76%)) 100 ml IV . DIRECTED [facility] Stop: 03/19/19 10:00 Last Admin: 03/19/19 07:45 Dose: 100 ml Iopamidol (Isovue-300 (61%)) 100 ml IV . DIRECTED PRN PRN Reason: RADIOLOGY EXAM Last Admin: 03/30/19 10:36 Dose: 100 ml Levothyroxine Sodium (Synthroid) 100 mcg IVPUSH DAILY [facility] Last Admin: 03/31/19 08:33 Dose: 100 mcg Lidocaine HCl (Xylocaine-Mpf 1%) 5 ml INJECT ONETIME ONE Stop: 03/11/19 05:30 Last Admin: 03/11/19 05:39 Dose: 2 ml Lidocaine/Epinephrine (Xylocaine 1% With Epinephrine 1:100,000) Confirm Administered Dose 50 ml .ROUTE .STK-MED ONE Stop: 03/10/19 06:23 Lidocaine/Epinephrine (Xylocaine 1% With Epinephrine 1:100,000) Confirm Administered Dose 50 ml .ROUTE .STK-MED ONE Stop: 03/11/19 07:19 Last Admin: 03/11/19 07:28 Dose: 15 ml Linezolid (Zyvox) 600 mg IRR .STK-MED ONE Stop: 03/11/19 07:39 Last Admin: 03/11/19 07:38 Dose: 600 mg Lorazepam (Ativan) 0.5 mg IVPUSH BID [facility] Last Admin: 03/09/19 09:09 Dose: 0.5 mg Lorazepam (Ativan) 0.5 mg IVPUSH Q4H PRN PRN Reason: Anxiety Last Admin: 03/27/19 10:07 Dose: 0.5 mg Lorazepam (Ativan) 0.25 mg IVPUSH BID [facility] Last Admin: 03/10/19 09:09 Dose: 0.25 mg Lorazepam (Ativan) 0.5 mg IVPUSH BID [facility] Last Admin: 03/30/19 21:01 Dose: 0.5 mg Meropenem (Merrem) Confirm Administered Dose 500 mg .ROUTE .STK-MED ONE Stop: 03/08/19 12:05 Last Admin: 03/08/19 14:00 Dose: 500 mg Meropenem (Merrem) Confirm Administered Dose 500 mg .ROUTE .STK-MED ONE Stop: 03/10/19 06:23 Meropenem (Merrem) Confirm Administered Dose 500 mg .ROUTE .STK-MED ONE Stop: 03/11/19 06:45 Last Admin: 03/11/19 07:38 Dose: 500 mg Methylprednisolone Sodium Succinate (Solu-Medrol) 40 mg IVPUSH Q6H [facility] Last Admin: 03/20/19 09:50 Dose: 40 mg Methylprednisolone Sodium Succinate (Solu-Medrol) 40 mg IVPUSH Q6H [facility] Last Admin: 04/01/19 10:25 Dose: 40 mg Metoprolol Tartrate (Lopressor) 5 mg IV Q6H [facility] Last Admin: 03/26/19 07:56 Dose: Not Given Metoprolol Tartrate (Lopressor) 2.5 mg IV Q6H [facility] Last Admin: 03/29/19 05:23 Dose: 2.5 mg Metoprolol Tartrate (Lopressor) 5 mg IV Q6H [facility] Last Admin: 03/31/19 04:53 Dose: 5 mg Naloxone HCl (Narcan) 0.1 mg IV ASDIRECTED PRN PRN Reason: decreased respiratory rate Neostigmine Methylsulfate (Neostigmine) Confirm Administered Dose 5 mg .ROUTE .STK-MED ONE Stop: 03/08/19 12:18 Non-Formulary Medication (Total Parenteral Nutrition, Central) 1,000 ml .XX .Continue Order [facility] Stop: 03/22/19 12:00 Non-Formulary Medication (Total Parenteral Nutrition, Central) 1,000 ml .XX .Continue Order [facility] Stop: 03/23/19 12:00 Non-Formulary Medication (Total Parenteral Nutrition, Central) 1,000 ml .XX .Continue Order [facility] Stop: 03/24/19 15:00 Non-Formulary Medication (Total Parenteral Nutrition, Central) 1,000 ml .XX .Continue Order [facility] Stop: 03/26/19 12:00 Non-Formulary Medication (Total Parenteral Nutrition, Central) 0 ml IV ASDIRECTED [facility] Stop: 03/31/19 13:01 Non-Formulary Medication (Total Parenteral Nutrition, Central) 1,000 ml .XX .Continue Order [facility] Stop: 04/01/19 10:00 Nystatin (Nystop) 0 gm TOP QID [facility] Last Admin: 03/31/19 11:05 Dose: 1 applic Ondansetron HCl (Zofran) Confirm Administered Dose 4 mg .ROUTE .STK-MED ONE Stop: 03/08/19 12:18 Ondansetron HCl (Zofran) 4 mg IVPUSH Q6H PRN PRN Reason: Nausea/Vomiting Pantoprazole Sodium (Protonix Iv) 40 mg IV Q24H [facility] Last Admin: 03/30/19 17:44 Dose: 40 mg Piperacillin Sod/Tazobactam Sod (Zosyn) Confirm Administered Dose 3.375 gm .ROUTE .STK-MED ONE Stop: 03/18/19 21:34 Last Admin: 03/18/19 21:40 Dose: Not Given Propofol (Diprivan 20 Ml) Confirm Administered Dose 200 mg .ROUTE .STK-MED ONE Stop: 03/08/19 12:18 Propofol (Diprivan 20 Ml) Confirm Administered Dose 200 mg .ROUTE .STK-MED ONE Stop: 03/10/19 07:33 Rocuronium Edmonson (Zemuron) Confirm Administered Dose 50 mg .ROUTE .STK-MED ONE Stop: 03/08/19 12:18 Scopolamine (Transderm-Scop) 1.5 mg TRDERM Q72H [facility] Last Admin: 03/28/19 10:35 Dose: 1.5 mg Sodium Chloride (Saline Flush) 10 ml FLUSH ONETIME ONE Stop: 03/30/19 10:02 Last Admin: 03/30/19 10:35 Dose: 10 ml Sodium Chloride (Saline Flush) 10 ml FLUSH ONETIME PRN PRN Reason: PER RADIOLOGY PROTOCOL Succinylcholine Chloride (Quelicin) Confirm Administered Dose 200 mg .ROUTE .STK -MED ONE Stop: 03/08/19 12:18 Succinylcholine Chloride (Quelicin) Confirm Administered Dose 200 mg .ROUTE .STK -MED ONE Stop: 03/10/19 07:33 - Exam Quality Assessment: DVT Prophylaxis General: Alert, Cooperative, Mild Distress. No: Oriented Lungs: Clear to Auscultation, Normal Respiratory Effort Cardiovascular: Regular Rate, Regular Rhythm GI/Abdominal Exam: Soft, Non-Tender, No Organomegaly, No Distention Extremities: Non-Tender, No Pedal Edema - Problem List Review Problem List Initiated/Reviewed/Updated: Yes - My Orders Last 24 Hours: My Active Orders 04/01/19 09:00 Docusate Sodium/Sennosides [Senna Plus] 1 tab PO DAILY 04/01/19 10:46 Supplement (Dietary) [Dietary Supplements] [RC] TIDMEALS 04/01/19 22:00 methylPREDNISolone Sod Succ [Solu-MEDROL] 40 mg IVPUSH Q12H 04/01/19 Lunch GI Soft Low Fiber [Soft Diet] [DIET] 04/02/19 09:00 Magnesium Oxide 400 mg PO BID 04/03/19 05:00 CBC WITH AUTO DIFF [HEME] Timed COMPREHENSIVE METABOLIC PN,CMP [CHEM] Timed MAGNESIUM [CHEM] Timed - Plan Plan:: ASSESSMENT AND PLAN - Acute respiratory failure with hypoxia and hypercapnia - Overall fairly stable since extubation 6 days ago. Secretions have come under better control over the past few days. -Racemic epinephrine nebulizer as needed for stridor and laryngeal spasm -Supplement oxygen -Vigorous pulmonary toilet -Continue meropenem and Solu-Medrol and additional 24 hours Small bowel obstruction with pneumatosis - status post emergent laparotomy with small bowel resection and right colectomy 03/08. Abdomen not distended. He is having bowel movements. -Postoperative care per surgical team -He is receiving TPN -Soft low residue diet -Pain control Type 2 diabetes mellitus -Continue glucometers every 6 hours -Continue insulin in the TPN -High dose sliding scale Humalog Hypokalemia - potassium level normal today. -Recheck in the morning Severe schizophrenia - patient is very debilitated because of his psychiatric illness. Now that he is extubated hopefully we can get his regular medications on board in the near future. -Resume usual oral medications Acute kidney injury - resolved -Continue to closely monitor urine output and renal function Maintenance issues - - DVT prophylaxis - mechanical - GI prophylaxis - oral H2 holden - Nutrition - nothing by mouth, currently receiving TPN for nutritional support. We may try some liquids and medications later in the day - Rodriguez catheter - placed for strict intake and output monitoring with a critical patient Disposition - anticipate discharge home versus more likely the halfway. the patient's hospital stay has been greatly prolonged by multiple unforeseen complications including prolonged return of bowel function postoperatively, aspiration leading to respiratory failure and reintubation.
--- NOTE | 2019-04-02 09:18 | PN ---
DATE OF SERVICE: 04/02/2019 SUBJECTIVE: Tuan's vital signs have been stable. He has been sitting up in the chair. Oral intake was 1160. As far as meals go, it is not documented how much he is eating for breakfast, lunch, or dinner, but TPN is still running at 82 mL per hour. Labs: Hemoglobin is up, it is 9.3 from 8.6. White count is 11.8. Potassium 4.8. Magnesium is 1.7. REVIEW OF SYSTEMS: Remainder of review of systems negative for any pertinent positives or negatives. OBJECTIVE: GENERAL: Tuan ePrez is a 58-year-old male, who is resting comfortably. VITAL SIGNS: TPR; 97.4, 90, 20. 135/76. SKIN: Incision looks good. Healing well. Steri-Strips are starting to come off. PLAN: 1. Continue same TPN rate and content. 2. Check CBC, CMP, phos in a.m. 3. Magnesium 2 g IV q.6h. 4. We will evaluate p.r.n. or in a.m. Syl Galindo PA-C /[id number]
[2019-04-02] MEDS: Magnesium Oxide 400 MG Tab PO SCH ×2 (09:28→21:09)
[2019-04-02] MEDS: Lactobacillus Rhamnosus GG (Probiotic) Cap PO SCH ×2 (11:58→21:08)
[2019-04-02] MEDS ORDERED: 1: AA 5%/Calcium/D15W/Lytes 1,000 ML with MVI, Adult with Vitamin K 10 ML, Chromium/Copp IV SCH ×3 (14:30)
[2019-04-02] MEDS: CLOZAPINE 100 MG PO SCH (21:07)
[2019-04-02] MEDS: Latanoprost 0.005% Ophth Soln 2.5 ML Bottle EYEBOTH SCH (21:09)
[2019-04-02] MEDS: Divalproex Sodium Delayed-Release 250 MG Tab.CR PO SCH (21:09)
[2019-04-03] MEDS: LORazepam 2 MG/ML SDV IVPUSH PRN (00:50)
[2019-04-03] MEDS: Nystatin Topical Powder 15 GM Bottle TOP SCH ×4 (05:55→21:42)
[2019-04-03] MEDS: Sodium Chloride 5% Ophth Soln 15 ML Bottle EYEBOTH SCH ×4 (05:55→21:42)
[2019-04-03] MEDS: Albuterol/Ipratropium 3.0-0.5 MG/3 ML Neb Soln INH SCH ×4 (07:06→20:22)
[2019-04-03] MEDS: Levothyroxine 88 MCG Tab PO SCH (08:01)
[2019-04-03] MEDS: LORazepam 1 MG Tab PO SCH ×2 (08:18→20:22)
[2019-04-03] MEDS: Doxazosin 4 MG Tab PO SCH (08:19)
[2019-04-03] MEDS: Famotidine 20 MG Tab PO SCH ×2 (08:21→20:24)
[2019-04-03] MEDS: Docusate Sodium 100 MG Cap PO SCH ×2 (08:21→20:24)
[2019-04-03] MEDS: Haloperidol 5 MG Tab PO SCH ×2 (08:22→20:24)
[2019-04-03] MEDS: Atenolol 50 MG Tab PO SCH (08:23)
[2019-04-03] MEDS: Magnesium Oxide 400 MG Tab PO SCH ×2 (08:24→20:24)
[2019-04-03] MEDS: Lactobacillus Rhamnosus GG (Probiotic) Cap PO SCH ×2 (08:24→20:26)
[2019-04-03] MEDS: Insulin Glargine,Human Rec. Analog 100 Units/ML 3 ML Pen SUBCUT SCH ×2 (08:26→21:40)
[2019-04-03] MEDS ORDERED: Central Total Parenteral Nutrition Bag SCH (08:30)
--- NOTE | 2019-04-03 09:10 | PCM.PN ---
- General Info Date of Service: 04/03/19 Subjective Update: Mr. Perez is been stable over the last 24 hours, good vital signs with no significant temperature elevation. Oral intake seems to be slowly improving, he has refused to walk with physical therapy the last 2 days Functional Status: Reports: Tolerating Diet, Ambulating, Urinating - Review of Systems General: Reports: Weakness. Denies: Fever, Chills Pulmonary: Reports: No Symptoms Cardiovascular: Reports: No Symptoms Gastrointestinal: Reports: No Symptoms - Patient Data Vitals - Most Recent: Last Vital Signs Temp 97.1 F 04/03/19 00:00 Pulse 98 04/03/19 08:23 Resp 18 04/03/19 06:00 BP 112/58 L 04/03/19 08:23 Pulse Ox 99 04/03/19 06:00 Weight - Most Recent: 158 lb 1.143 oz I&O - Last 24 Hours: Intake & Output 04/02/19 04/03/19 04/03/19 22:59 06:59 14:59 Intake Total 1519 630 Balance 1519 630 Lab Results Last 24 Hours: Laboratory Results - last 24 hr 04/03/19 04/03/19 Range/Units 04:45 04:45 WBC 10.4 (4.5-11.0) K/uL RBC 3.27 L (4.30-5.90) M/uL Hgb 9.3 L (12.0-15.0) g/dL Hct 30.7 L (40.0-54.0) % MCV 94 (80-98) fL MCH 28 (27-31) pg MCHC 30 L (32-36) % Plt Count 299 (150-400) K/uL Sodium 146 (140-148) mmol/L Potassium 4.3 (3.6-5.2) mmol/L Chloride 110 H (100-108) mmol/L Carbon Dioxide 30 (21-32) mmol/L Anion Gap 10.3 (5.0-14.0) mmol/L BUN 29 H (7-18) mg/dL Creatinine 0.8 (0.8-1.3) mg/dL Est Cr Clr Drug Dosing 84.28 mL/min Estimated GFR (MDRD) > 60 (>60) Glucose 94 (74-106) mg/dL Calcium 8.1 L (8.5-10.1) mg/dL Phosphorus 4.0 (2.5-4.9) mg/dL Magnesium 1.9 (1.8-2.4) mg/dL Total Bilirubin 0.5 (0.2-1.0) mg/dL AST 45 H (15-37) U/L ALT 135 H (12-78) U/L Alkaline Phosphatase 205 H (46-116) U/L Total Protein 5.5 L (6.4-8.2) g/dL Albumin 2.5 L (3.4-5.0) g/dL Globulin 3.0 (2.3-3.5) g/dL Albumin/Globulin Ratio 0.8 L (1.2-2.2) Med Orders - Current: Current Medications Albuterol (Proventil Neb Soln) 2.5 mg NEB Q4H PRN PRN Reason: Shortness Of Breath/wheezing Last Admin: 03/10/19 00:24 Dose: 2.5 mg Albuterol/Ipratropium (Duoneb 3.0-0.5 Mg/3 Ml) 3 ml INH QIDRT [facility] Last Admin: 04/03/19 07:06 Dose: 3 ml Atenolol (Tenormin) 100 mg PO DAILY [facility] Last Admin: 04/03/19 08:23 Dose: 100 mg Dextrose (Glutose 15) 15 gm PO ASDIRECTED PRN PRN Reason: HYPOGLYCEMIA Dextrose/Water (Dextrose 50% In Water) 50 ml IVPUSH ASDIRECTED PRN PRN Reason: HYPOGLYCEMIA Diphenhydramine HCl (Benadryl) 25 mg IVPUSH Q4H PRN PRN Reason: Itching Last Admin: 04/01/19 01:49 Dose: 25 mg Divalproex Sodium (Divalproex Sodium) 1,500 mg PO BEDTIME [facility] Last Admin: 04/02/19 21:09 Dose: 1,500 mg Docusate Sodium (Colace) 100 mg PO BID [facility] Last Admin: 04/03/19 08:21 Dose: Not Given Doxazosin Mesylate (Cardura) 4 mg PO DAILY [facility] Last Admin: 04/03/19 08:19 Dose: 4 mg Famotidine (Pepcid) 40 mg PO BID [facility] Last Admin: 04/03/19 08:21 Dose: 40 mg Glucagon (Glucagen) 1 mg IM ASDIRECTED PRN PRN Reason: HYPOGLYCEMIA Haloperidol (Haldol) 10 mg PO BID [facility] Last Admin: 04/03/19 08:22 Dose: 10 mg Haloperidol Lactate (Haldol) 2 mg IVPUSH Q4H PRN PRN Reason: Agitation Last Admin: 04/02/19 05:33 Dose: 2 mg Heparin Sodium (Porcine) (Heparin Lock Flush 100 Units/Ml) 500 units FLUSH ASDIRECTED PRN PRN Reason: Keep Vein Open Last Admin: 03/31/19 00:00 Dose: 500 units Meropenem 1 gm/ Sodium (Chloride) 50 mls @ 100 mls/hr IV Q8H [facility] Last Admin: 04/03/19 08:02 Dose: 100 mls/hr Multivitamins/Minerals 10 ml/Chromium/Copper/Manganese/Seleni/Zn 1 ml/ Amino Ac/ Electrol/Dextrose/Calcium 1,011 mls @ 40 mls/hr IV .BY DURATION [facility] Stop: 04/03/19 13:00 Last Admin: 04/02/19 13:35 Dose: 40 mls/hr Amino Ac/Electrol/Dextrose/Calcium (Clinimix E 5/15) 1,000 mls @ 40 mls/hr IV .BY DURATION [facility] Stop: 04/03/19 13:00 Multivitamins/Minerals 10 ml/Chromium/Copper/Manganese/Seleni/Zn 1 ml/ Amino Ac/ Electrol/Dextrose/Calcium 1,011 mls @ 20 mls/hr IV .BY DURATION [facility] Amino Ac/Electrol/Dextrose/Calcium (Clinimix E 5/15) 1,000 mls @ 20 mls/hr IV .BY DURATION [facility] Magnesium Sulfate 2 gm/ Premix 50 mls @ 25 mls/hr IV ONETIME ONE Stop: 04/03/19 11:00 Insulin Glargine (Lantus Solostar) 14 units SUBCUT BID [facility] Last Admin: 04/03/19 08:26 Dose: 14 unit Insulin Human Lispro (Humalog) 0 unit SUBCUT ASDIRECTED [facility]; Protocol Last Admin: 04/02/19 08:26 Dose: 3 units Lactobacillus Rhamnosus (Culturelle) 1 cap PO BID [facility] Last Admin: 04/03/19 08:24 Dose: 1 cap Latanoprost (Xalatan 0.005% Ophth Soln) 0 ml EYEBOTH BEDTIME [facility] Last Admin: 04/02/19 21:09 Dose: 1 drop Levothyroxine Sodium (Synthroid) 88 mcg PO ACBREAKFAST [facility] Last Admin: 04/03/19 08:01 Dose: 88 mcg Lorazepam (Ativan) 1 mg IVPUSH Q1H PRN PRN Reason: Anxiety Last Admin: 04/03/19 00:50 Dose: 1 mg Lorazepam (Ativan) 1 mg PO BID [facility] Last Admin: 04/03/19 08:18 Dose: 1 mg Magnesium Oxide (Magnesium Oxide) 400 mg PO BID [facility] Last Admin: 04/03/19 08:24 Dose: 400 mg Morphine Sulfate (Morphine) 2 mg IVPUSH Q1H PRN PRN Reason: Other Last Admin: 03/31/19 01:30 Dose: 2 mg Scopolamine Patch (Check) 1 each TOP DAILY [facility] Last Admin: 04/02/19 08:19 Dose: Not Given Clozapine 100mg (Ptom) 0 mg PO BEDTIME [facility] Last Admin: 04/02/19 21:07 Dose: 450 mg Non-Formulary Medication (Total Parenteral Nutrition, Central) 1,000 ml .XX .Continue Order [facility] Stop: 04/03/19 10:00 Nystatin (Nystop) 0 gm TOP QID [facility] Last Admin: 04/03/19 05:55 Dose: 1 applic Ondansetron HCl (Zofran) 4 mg IVPUSH Q4H PRN PRN Reason: Nausea/Vomiting Last Admin: 03/18/19 17:31 Dose: 4 mg Racepinephrine (S-2 2.25%) 0.5 ml NEB Q2H PRN PRN Reason: Shortness of Breath Last Admin: 03/28/19 00:32 Dose: 0.5 ml Senna/Docusate Sodium (Senna Plus) 1 tab PO DAILY [facility] Last Admin: 04/02/19 08:13 Dose: 1 tab Sodium Chloride (Joseph 128 5% Ophth Soln) 0 ml EYEBOTH QID [facility] Last Admin: 04/03/19 05:55 Dose: 1 drop Sodium Chloride (Sodium Chloride 0.9%) 3 ml INH ASDIRECTED PRN PRN Reason: mix with racepinephrine neb Last Admin: 03/28/19 00:35 Dose: 3 ml Zinc Acetate/Diphenhydramine (Banophen Anti-Itch 2% Crm) 0 gm TOP QID PRN PRN Reason: Perineal Comfort Measure Discontinued Medications Acetylcysteine (Mucomyst 20%) 400 mg INH BIDRT [facility] Last Admin: 03/12/19 07:48 Dose: 200 mg Acetylcysteine (Mucomyst 20%) 200 mg INH BIDRT [facility] Stop: 03/12/19 23:59 Last Admin: 03/12/19 20:44 Dose: 200 mg Acetylcysteine (Mucomyst 20%) 200 mg NEB BIDRT [facility] Last Admin: 03/27/19 07:06 Dose: 200 mg Atropine Sulfate (Atropine 1%) 0 ml SL BID [facility] Last Admin: 03/29/19 09:06 Dose: 4 drop Bisacodyl (Dulcolax) 10 mg PO BID [facility] Last Admin: 03/17/19 20:35 Dose: Not Given Bisacodyl (Dulcolax) 10 mg RECTAL ONETIME ONE Stop: 03/17/19 17:01 Last Admin: 03/17/19 17:10 Dose: 10 mg Bupivacaine HCl (Marcaine 0.5%) Confirm Administered Dose 50 ml .ROUTE .STK-MED ONE Stop: 03/10/19 06:23 Bupivacaine HCl (Marcaine 0.5%) Confirm Administered Dose 50 ml .ROUTE .STK-MED ONE Stop: 03/11/19 07:19 Last Admin: 03/11/19 07:28 Dose: 15 ml Ropivacaine 36 ml/Dexamethasone 8 mg/Epinephrine HCl 0.4 mg/ Sodium Chloride 41.6 ml 0 ml NERVRT ASDIRECTED [facility] Last Admin: 03/08/19 15:05 Dose: 80 syringe Ropivacaine 36 ml/Dexamethasone 8 mg/Epinephrine HCl 0.4 mg/ Sodium Chloride 41.6 ml 0 ml NERVRT ASDIRECTED [facility] Last Admin: 03/11/19 07:41 Dose: 80 syringe Dexamethasone (Dexamethasone) Confirm Administered Dose 4 mg .ROUTE .STK-MED ONE Stop: 03/08/19 12:18 Dimethicone/Zinc Oxide (Rash Relief-Zinc Oxide [place]) 0 gm TOP ASDIRECTED PRN PRN Reason: Perineal Comfort Measure Last Admin: 03/29/19 15:40 Dose: 6 spray Diphenhydramine HCl (Benadryl) 25 mg IVPUSH Q6H PRN PRN Reason: Itching Diphenhydramine HCl (Benadryl) 25 mg PO Q6H PRN PRN Reason: Itching Fentanyl (Sublimaze) Confirm Administered Dose 250 mcg .ROUTE .STK-MED ONE Stop: 03/08/19 12:19 Furosemide (Lasix) 20 mg IVPUSH ONETIME ONE Stop: 03/09/19 21:56 Last Admin: 03/09/19 22:10 Dose: 20 mg Furosemide (Lasix) Confirm Administered Dose 20 mg .ROUTE .STK-MED ONE Stop: 03/09/19 22:05 Last Admin: 03/09/19 22:10 Dose: Not Given Furosemide (Lasix) 20 mg IVPUSH ONETIME ONE Stop: 03/10/19 06:33 Last Admin: 03/10/19 07:20 Dose: 20 mg Furosemide (Lasix) 20 mg IVPUSH ONETIME ONE Stop: 03/12/19 18:01 Last Admin: 03/12/19 17:43 Dose: 20 mg Furosemide (Lasix) 20 mg IVPUSH ONETIME ONE Stop: 03/12/19 07:31 Last Admin: 03/12/19 07:44 Dose: 20 mg Furosemide (Lasix) 10 mg IVPUSH Q12H [facility] Stop: 03/13/19 21:01 Last Admin: 03/13/19 20:29 Dose: 10 mg Furosemide (Lasix) 20 mg IVPUSH NOW ONE Stop: 03/15/19 11:31 Last Admin: 03/15/19 11:38 Dose: 20 mg Furosemide (Lasix) 20 mg IVPUSH ONETIME ONE Stop: 03/16/19 13:31 Last Admin: 03/16/19 14:18 Dose: 20 mg Furosemide (Lasix) 20 mg IVPUSH NOW ONE Stop: 03/17/19 09:16 Last Admin: 03/17/19 09:47 Dose: 20 mg Furosemide (Lasix) 20 mg IVPUSH Q12H [facility] Stop: 03/22/19 21:31 Last Admin: 03/22/19 22:10 Dose: 20 mg Furosemide (Lasix) 20 mg IVPUSH Q12H [facility] Stop: 03/23/19 22:01 Last Admin: 03/23/19 22:47 Dose: 20 mg Furosemide (Lasix) 20 mg IVPUSH Q8H [facility] Stop: 03/25/19 02:01 Last Admin: 03/25/19 02:11 Dose: 20 mg Furosemide (Lasix) 20 mg IVPUSH Q12H [facility] Last Admin: 03/25/19 21:32 Dose: 20 mg Furosemide (Lasix) 20 mg IVPUSH Q8H [facility] Last Admin: 03/28/19 09:14 Dose: 20 mg Furosemide (Lasix) 20 mg IVPUSH Q12H [facility] Last Admin: 03/28/19 21:46 Dose: 20 mg Glycopyrrolate (Robinul) Confirm Administered Dose 1 mg .ROUTE .STK-MED ONE Stop: 03/08/19 12:18 Haloperidol Lactate (Haldol) 5 mg IVPUSH BID [facility] Last Admin: 03/09/19 09:06 Dose: 5 mg Haloperidol Lactate (Haldol) 2.5 mg IVPUSH BID [facility] Last Admin: 03/31/19 08:37 Dose: 2.5 mg Heparin Sodium (Porcine) (Heparin Sodium) Confirm Administered Dose 5,000 units .ROUTE .STK-MED ONE Stop: 03/10/19 07:04 Last Admin: 03/10/19 07:57 Dose: Not Given Heparin Sodium (Porcine) (Heparin Lock Flush 100 Units/Ml) Confirm Administered Dose 1,000 units .ROUTE .STK-MED ONE Stop: 03/11/19 07:32 Last Admin: 03/11/19 08:31 Dose: Not Given Heparin Sodium (Porcine) (Heparin Sodium) Confirm Administered Dose 5,000 units .ROUTE .STK-MED ONE Stop: 03/18/19 23:03 Last Admin: 03/19/19 02:36 Dose: Not Given Hydromorphone HCl (Dilaudid [employer] 15 Mg In Ns 30 Ml) 0 mg IV ASDIRECTED PRN; Protocol PRN Reason: PAIN Last Admin: 03/16/19 16:43 Dose: 15 mg Sodium Chloride (Normal Saline) 1,000 mls @ 1,000 mls/hr IV ASDIRECTED [facility] Last Admin: 03/08/19 10:02 Dose: 1,000 mls/hr Ampicillin Sodium/Sulbactam (Sodium 1.5 gm/ Sodium Chloride) 50 mls @ 100 mls/ hr IV Q6H [facility] Last Admin: 03/08/19 13:30 Dose: 100 mls/hr Aztreonam 1 gm/ Sodium (Chloride) 50 mls @ 100 mls/hr IV Q12H [facility] Last Admin: 03/08/19 13:30 Dose: 100 mls/hr Lactated Ringer's (Ringers, Lactated) 1,000 mls @ 150 mls/hr IV ASDIRECTED [facility] Last Admin: 03/08/19 13:31 Dose: 150 mls/hr Lactated Ringer's (Ringers, Lactated) Confirm Administered Dose 1,000 mls @ as directed .ROUTE .STK-MED ONE Stop: 03/08/19 15:16 Lactated Ringer's (Ringers, Lactated) 1,000 mls @ 100 mls/hr IV ASDIRECTED [facility] Last Admin: 03/09/19 03:26 Dose: 100 mls/hr Dextrose/Lactated Ringer's (Dextrose 5%-Lactated Ringers) 1,000 mls @ 100 mls/ hr IV ASDIRECTED [facility] Stop: 03/12/19 11:59 Last Admin: 03/11/19 23:35 Dose: 100 mls/hr Ampicillin Sodium/Sulbactam (Sodium 3 gm/ Sodium Chloride) 100 mls @ 200 mls/ hr IV Q6H [facility] Last Admin: 03/13/19 05:19 Dose: 200 mls/hr Aztreonam 1 gm/ Sodium (Chloride) 50 mls @ 100 mls/hr IV Q8H [facility] Last Admin: 03/13/19 04:23 Dose: 100 mls/hr Valproic Acid 500 mg/ Sodium (Chloride) 55 mls @ 55 mls/hr IV Q8H [facility] Last Admin: 03/31/19 04:58 Dose: 55 mls/hr Potassium Chloride 20 meq/Lidocaine HCl 2 ml/ Sodium Chloride 112 mls @ 56 mls/ hr IV Q2H [facility] Stop: 03/09/19 15:59 Last Admin: 03/09/19 17:30 Dose: 56 mls/hr Lactated Ringer's (Ringers, Lactated) 750 mls @ 750 mls/hr IV [facility]OLUS ONE Stop: 03/09/19 16:25 Last Admin: 03/09/19 15:53 Dose: 750 mls/hr Lactated Ringer's (Ringers, Lactated) 750 mls @ 999 mls/hr IV BOLUS ONE Stop: 03/09/19 21:15 Last Admin: 03/09/19 21:08 Dose: 999 mls/hr Heparin Sodium (Porcine) 5,000 (units/ Sodium Chloride) 501 mls @ 5 mls/hr IV ASDIRECTED [facility] Last Admin: 03/12/19 13:58 Dose: 5 mls/hr Propofol (Diprivan 100 Ml) 100 mls @ 2.191 mls/hr IV TITRATE [facility]; Protocol Last Titration: 03/15/19 07:18 Dose: 0 mcg/kg/min, 0 mls/hr Linezolid 600 mg/ Premix 300 mls @ 300 mls/hr IV Q12H [facility] Last Admin: 03/11/19 21:53 Dose: 300 mls/hr Potassium Chloride 20 meq/Lidocaine HCl 2 ml/ Sodium Chloride 112 mls @ 56 mls/ hr IV Q2H [facility] Stop: 03/10/19 16:29 Last Admin: 03/10/19 16:07 Dose: 56 mls/hr Potassium Chloride 20 meq/ (Premix) 0 mls @ 50 mls/hr IV Q2H [facility] Stop: 03/11/19 07:28 Last Admin: 03/11/19 07:32 Dose: 50 mls/hr Magnesium Sulfate 2 gm/ Premix 50 mls @ 25 mls/hr IV Q6H [facility] Last Admin: 03/12/19 04:27 Dose: 25 mls/hr Potassium Phosphate 20 mmole/ (Sodium Chloride) 256.6667 mls @ 85 mls/hr IV Q3H [facility] Stop: 03/11/19 17:59 Last Admin: 03/11/19 14:42 Dose: 85 mls/hr Multivitamins/Minerals 10 ml/Chromium/Copper/Manganese/Seleni/Zn 1 ml/ Amino Ac/ Electrol/Dextrose/Calcium 1,011 mls @ 82 mls/hr IV .BY DURATION [facility] Last Admin: 03/13/19 12:34 Dose: 82 mls/hr Amino Ac/Electrol/Dextrose/Calcium (Clinimix E 12/08) 1,000 mls @ 82 mls/hr IV .BY DURATION [facility] Last Admin: 03/14/19 01:20 Dose: 82 mls/hr Sodium Chloride (Normal Saline) 1,000 mls @ 20 mls/hr IV ASDIRECTED [facility] Last Admin: 03/13/19 22:58 Dose: 20 mls/hr Potassium Phosphate 20 mmole/ (Sodium Chloride) 256.6667 mls @ 85.556 mls/hr IV Q3H [facility] Stop: 03/12/19 16:59 Last Admin: 03/12/19 14:49 Dose: 85.556 mls/hr Potassium Chloride 20 meq/ (Premix) 100 mls @ 50 mls/hr IV ONETIME ONE Stop: 03/13/19 10:59 Last Admin: 03/13/19 09:29 Dose: 50 mls/hr Potassium Phosphate 30 mmole/ (Sodium Chloride) 110 mls @ 30 mls/hr IV ONETIME ONE Stop: 03/13/19 14:39 Last Admin: 03/13/19 12:14 Dose: 30 mls/hr Linezolid 600 mg/ Premix 300 mls @ 300 mls/hr IV Q12H [facility] Last Admin: 03/20/19 09:52 Dose: 300 mls/hr Magnesium Sulfate 2 gm/ Premix 50 mls @ 25 mls/hr IV Q6H [facility] Stop: 03/16/19 03:59 Last Admin: 03/16/19 01:59 Dose: 25 mls/hr Azithromycin 250 mg/ Sodium (Chloride) 150 mls @ 150 mls/hr IV Q12H [facility] Azithromycin 250 mg/ Sodium (Chloride) 150 mls @ 150 mls/hr IV Q24H [facility] Last Admin: 03/17/19 11:28 Dose: 150 mls/hr Multivitamins/Minerals 10 ml/Chromium/Copper/Manganese/Seleni/Zn 1 ml/ Amino Ac/ Electrol/Dextrose/Calcium 1,011 mls @ 82 mls/hr IV .BY DURATION [facility] Stop: 03/18/19 14:59 Last Admin: 03/17/19 14:26 Dose: 82 mls/hr Amino Ac/Electrol/Dextrose/Calcium (Clinimix E 15) 1,000 mls @ 82 mls/hr IV .BY DURATION [facility] Stop: 03/18/19 14:59 Last Admin: 03/18/19 03:38 Dose: 82 mls/hr Multivitamins/Minerals 10 ml/Chromium/Copper/Manganese/Seleni/Zn 1 ml/ Amino Ac/ Electrol/Dextrose/Calcium 1,011 mls @ 80 mls/hr IV .BY DURATION [facility] Last Admin: 03/18/19 16:05 Dose: 40 mls/hr Amino Ac/Electrol/Dextrose/Calcium (Clinimix E 12/08) 1,000 mls @ 40 mls/hr IV .BY DURATION [facility] Piperacillin Sod/Tazobactam (Sod 3.375 gm/ Sodium Chloride) 50 mls @ 100 mls/ hr IV Q6H [facility] Last Admin: 03/19/19 04:17 Dose: 100 mls/hr Sodium Chloride (Normal Saline) Confirm Administered Dose 50 mls @ as directed .ROUTE .STK-MED ONE Stop: 03/18/19 21:35 Last Admin: 03/18/19 21:40 Dose: Not Given Propofol (Diprivan 100 Ml) Confirm Administered Dose 100 mls @ as directed .ROUTE .STK-MED ONE Stop: 03/18/19 23:04 Last Admin: 03/19/19 01:04 Dose: Not Given Propofol (Diprivan 100 Ml) 100 mls @ 2.195 mls/hr IV TITRATE [facility]; Protocol Last Titration: 03/27/19 07:00 Dose: 0 mcg/kg/min, 0 mls/hr Heparin Sodium (Porcine) 5,000 (units/ Sodium Chloride) 501 mls @ 0.1 mls/hr IV ASDIRECTED [facility] Last Admin: 03/27/19 15:35 Dose: 1 units/hr, 0.1 mls/hr Sodium Chloride (Normal Saline) 500 mls @ 999 mls/hr IV .BOLUS ONE Stop: 03/19/19 00:00 Last Admin: 03/19/19 00:00 Dose: 999 mls/hr Sodium Chloride (Normal Saline) 1,000 mls @ 20 mls/hr IV ASDIRECTED [facility] Last Admin: 03/30/19 23:53 Dose: 20 mls/hr Sodium Chloride (Normal Saline) 100 mls @ 4 mls/sec IV ASDIRECTED [facility] Stop: 03/19/19 10:00 Last Admin: 03/19/19 07:45 Dose: 4 mls/sec Multivitamins/Minerals 10 ml/Chromium/Copper/Manganese/Seleni/Zn 1 ml/ Amino Ac/ Electrol/Dextrose/Calcium 1,011 mls @ 80 mls/hr IV .BY DURATION [facility] Stop: 03/19/19 20:00 Amino Ac/Electrol/Dextrose/Calcium (Clinimix E 5/15) 1,000 mls @ 80 mls/hr IV .BY DURATION [facility] Stop: 03/19/19 20:00 Last Admin: 03/19/19 08:12 Dose: 80 mls/hr Piperacillin/Tazobactam/ (Dextrose 3.375 gm/ Premix) 50 mls @ 100 mls/hr IV Q6H [facility] Last Admin: 03/25/19 09:29 Dose: 100 mls/hr Multivitamins/Minerals 10 ml/Chromium/Copper/Manganese/Seleni/Zn 1 ml/ Amino Ac/ Electrol/Dextrose/Calcium 1,011 mls @ 82 mls/hr IV .BY DURATION [facility] Stop: 03/23/19 20:00 Last Admin: 03/22/19 21:45 Dose: 82 mls/hr Amino Ac/Electrol/Dextrose/Calcium (Clinimix E 5/15) 1,000 mls @ 82 mls/hr IV .BY DURATION [facility] Stop: 03/23/19 20:00 Last Admin: 03/23/19 11:17 Dose: Not Given Albumin Human (Albumin 25%) 25 gm in 100 mls @ 25 mls/hr IV Q24H [facility] Stop: 03/23/19 11:59 Last Admin: 03/23/19 08:20 Dose: 25 mls/hr Albumin Human (Albumin 25%) 25 gm in 100 mls @ 25 mls/hr IV Q24H [facility] Stop: 03/23/19 15:59 Last Admin: 03/23/19 11:22 Dose: 25 mls/hr Azithromycin 250 mg/ Sodium (Chloride) 150 mls @ 150 mls/hr IV Q24H [facility] Last Admin: 03/24/19 11:55 Dose: 150 mls/hr Potassium Chloride 20 meq/ (Premix) 100 mls @ 50 mls/hr IV ONETIME ONE Stop: 03/21/19 10:59 Last Admin: 03/21/19 09:29 Dose: 50 mls/hr Potassium Chloride 40 meq/ (Premix) 100 mls @ 25 mls/hr IV ONETIME ONE Stop: 03/22/19 13:59 Last Admin: 03/22/19 10:01 Dose: 25 mls/hr Magnesium Sulfate 2 gm/ Premix 50 mls @ 25 mls/hr IV Q6H [facility] Stop: 03/26/19 03:59 Last Admin: 03/24/19 08:07 Dose: 25 mls/hr Potassium Chloride 40 meq/ (Premix) 100 mls @ 25 mls/hr IV ONETIME ONE Stop: 03/23/19 13:59 Last Admin: 03/23/19 09:22 Dose: 25 mls/hr Multivitamins/Minerals 10 ml/Chromium/Copper/Manganese/Seleni/Zn 1 ml/ Amino Ac/ Electrol/Dextrose/Calcium 1,011 mls @ 82 mls/hr IV .BY DURATION [facility] Last Admin: 04/02/19 02:05 Dose: 82 mls/hr Amino Ac/Electrol/Dextrose/Calcium (Clinimix E 12/08) 1,000 mls @ 82 mls/hr IV .BY DURATION [facility] Last Admin: 04/01/19 14:27 Dose: 82 mls/hr Potassium Chloride 40 meq/ (Premix) 100 mls @ 25 mls/hr IV ONETIME ONE Stop: 03/24/19 13:59 Last Admin: 03/24/19 09:54 Dose: 25 mls/hr Potassium Chloride 40 meq/ (Premix) 100 mls @ 25 mls/hr IV ONETIME ONE Stop: 03/25/19 13:59 Last Admin: 03/25/19 10:32 Dose: 25 mls/hr Fat Emulsion Intravenous (Intralipid 20%) 100 mls @ 8.3 mls/hr IV Q48H [facility] Last Admin: 03/29/19 15:52 Dose: 8.3 mls/hr Magnesium Sulfate 2 gm/ Premix 50 mls @ 25 mls/hr IV Q6H [facility] Stop: 03/30/19 03:59 Last Admin: 03/30/19 03:14 Dose: 25 mls/hr Sodium Chloride (Normal Saline) 75 mls @ 3 mls/sec IV ASDIRECTED [facility] Last Admin: 03/30/19 10:36 Dose: 3 mls/sec Sodium Chloride (Normal Saline) 100 mls @ 3 mls/sec IV ONETIME ONE Stop: 03/30/19 10:27 Last Admin: 03/30/19 19:19 Dose: Not Given Magnesium Sulfate 2 gm/ Premix 50 mls @ 25 mls/hr IV Q6H [facility] Stop: 04/02/19 10:00 Last Admin: 04/02/19 09:24 Dose: 25 mls/hr Insulin Glargine (Lantus Solostar) 10 units SUBCUT BID [facility] Last Admin: 03/16/19 09:27 Dose: 10 unit Insulin Glargine (Lantus Solostar) 14 units SUBCUT BID [facility] Last Admin: 03/18/19 09:06 Dose: 14 units Insulin Glargine (Lantus Solostar) 7 units SUBCUT BID [facility] Stop: 03/18/19 21:01 Last Admin: 03/18/19 21:25 Dose: Not Given Insulin Glargine (Lantus Solostar) 12 units SUBCUT BID [facility] Last Admin: 04/02/19 08:24 Dose: 12 units Insulin Human Lispro (Humalog) 0 unit SUBCUT Q6H PRN; Protocol PRN Reason: MEDIUM CORRECTIONAL DOSING Last Admin: 03/14/19 17:42 Dose: 7 units Insulin Human Lispro (Humalog) 15 unit SUBCUT ONETIME ONE Stop: 03/14/19 12:05 Last Admin: 03/14/19 12:10 Dose: 15 units Insulin Human Lispro (Humalog) 0 unit SUBCUT ONETIME ONE Stop: 03/15/19 00:16 Last Admin: 03/15/19 00:25 Dose: 12 units Iohexol (Omnipaque-300) 100 ml IVPUSH . DIRECTED [facility] Iopamidol (Isovue-370 (76%)) 100 ml IV . DIRECTED [facility] Stop: 03/19/19 10:00 Last Admin: 03/19/19 07:45 Dose: 100 ml Iopamidol (Isovue-300 (61%)) 100 ml IV . DIRECTED PRN PRN Reason: RADIOLOGY EXAM Last Admin: 03/30/19 10:36 Dose: 100 ml Levothyroxine Sodium (Synthroid) 100 mcg IVPUSH DAILY [facility] Last Admin: 03/31/19 08:33 Dose: 100 mcg Lidocaine HCl (Xylocaine-Mpf 1%) 5 ml INJECT ONETIME ONE Stop: 03/11/19 05:30 Last Admin: 03/11/19 05:39 Dose: 2 ml Lidocaine/Epinephrine (Xylocaine 1% With Epinephrine 1:100,000) Confirm Administered Dose 50 ml .ROUTE .STK-MED ONE Stop: 03/10/19 06:23 Lidocaine/Epinephrine (Xylocaine 1% With Epinephrine 1:100,000) Confirm Administered Dose 50 ml .ROUTE .STK-MED ONE Stop: 03/11/19 07:19 Last Admin: 03/11/19 07:28 Dose: 15 ml Linezolid (Zyvox) 600 mg IRR .STK-MED ONE Stop: 03/11/19 07:39 Last Admin: 03/11/19 07:38 Dose: 600 mg Lorazepam (Ativan) 0.5 mg IVPUSH BID [facility] Last Admin: 03/09/19 09:09 Dose: 0.5 mg Lorazepam (Ativan) 0.5 mg IVPUSH Q4H PRN PRN Reason: Anxiety Last Admin: 03/27/19 10:07 Dose: 0.5 mg Lorazepam (Ativan) 0.25 mg IVPUSH BID [facility] Last Admin: 03/10/19 09:09 Dose: 0.25 mg Lorazepam (Ativan) 0.5 mg IVPUSH BID [facility] Last Admin: 03/30/19 21:01 Dose: 0.5 mg Meropenem (Merrem) Confirm Administered Dose 500 mg .ROUTE .STK-MED ONE Stop: 03/08/19 12:05 Last Admin: 03/08/19 14:00 Dose: 500 mg Meropenem (Merrem) Confirm Administered Dose 500 mg .ROUTE .STK-MED ONE Stop: 03/10/19 06:23 Meropenem (Merrem) Confirm Administered Dose 500 mg .ROUTE .STK-MED ONE Stop: 03/11/19 06:45 Last Admin: 03/11/19 07:38 Dose: 500 mg Methylprednisolone Sodium Succinate (Solu-Medrol) 40 mg IVPUSH Q6H [facility] Last Admin: 03/20/19 09:50 Dose: 40 mg Methylprednisolone Sodium Succinate (Solu-Medrol) 40 mg IVPUSH Q6H [facility] Last Admin: 04/01/19 10:25 Dose: 40 mg Methylprednisolone Sodium Succinate (Solu-Medrol) 40 mg IVPUSH Q12H [facility] Last Admin: 04/01/19 21:19 Dose: 40 mg Metoprolol Tartrate (Lopressor) 5 mg IV Q6H [facility] Last Admin: 03/26/19 07:56 Dose: Not Given Metoprolol Tartrate (Lopressor) 2.5 mg IV Q6H [facility] Last Admin: 03/29/19 05:23 Dose: 2.5 mg Metoprolol Tartrate (Lopressor) 5 mg IV Q6H [facility] Last Admin: 03/31/19 04:53 Dose: 5 mg Naloxone HCl (Narcan) 0.1 mg IV ASDIRECTED PRN PRN Reason: decreased respiratory rate Neostigmine Methylsulfate (Neostigmine) Confirm Administered Dose 5 mg .ROUTE .STK-MED ONE Stop: 03/08/19 12:18 Non-Formulary Medication (Total Parenteral Nutrition, Central) 1,000 ml .XX .Continue Order [facility] Stop: 03/22/19 12:00 Non-Formulary Medication (Total Parenteral Nutrition, Central) 1,000 ml .XX .Continue Order [facility] Stop: 03/23/19 12:00 Non-Formulary Medication (Total Parenteral Nutrition, Central) 1,000 ml .XX .Continue Order [facility] Stop: 03/24/19 15:00 Non-Formulary Medication (Total Parenteral Nutrition, Central) 1,000 ml .XX .Continue Order [facility] Stop: 03/26/19 12:00 Non-Formulary Medication (Total Parenteral Nutrition, Central) 0 ml IV ASDIRECTED [facility] Stop: 03/31/19 13:01 Non-Formulary Medication (Total Parenteral Nutrition, Central) 1,000 ml .XX .Continue Order [facility] Stop: 04/01/19 10:00 Non-Formulary Medication (Total Parenteral Nutrition, Central) 1,000 ml .XX .Continue Order [facility] Stop: 04/02/19 10:00 Nystatin (Nystop) 0 gm TOP QID [facility] Last Admin: 03/31/19 11:05 Dose: 1 applic Ondansetron HCl (Zofran) Confirm Administered Dose 4 mg .ROUTE .STK-MED ONE Stop: 03/08/19 12:18 Ondansetron HCl (Zofran) 4 mg IVPUSH Q6H PRN PRN Reason: Nausea/Vomiting Pantoprazole Sodium (Protonix Iv) 40 mg IV Q24H [facility] Last Admin: 03/30/19 17:44 Dose: 40 mg Piperacillin Sod/Tazobactam Sod (Zosyn) Confirm Administered Dose 3.375 gm .ROUTE .STK-MED ONE Stop: 03/18/19 21:34 Last Admin: 03/18/19 21:40 Dose: Not Given Propofol (Diprivan 20 Ml) Confirm Administered Dose 200 mg .ROUTE .STK-MED ONE Stop: 03/08/19 12:18 Propofol (Diprivan 20 Ml) Confirm Administered Dose 200 mg .ROUTE .STK-MED ONE Stop: 03/10/19 07:33 Rocuronium [place] (Zemuron) Confirm Administered Dose 50 mg .ROUTE .STK-MED ONE Stop: 03/08/19 12:18 Scopolamine (Transderm-Scop) 1.5 mg TRDERM Q72H [facility] Last Admin: 03/28/19 10:35 Dose: 1.5 mg Sodium Chloride (Saline Flush) 10 ml FLUSH ONETIME ONE Stop: 03/30/19 10:02 Last Admin: 03/30/19 10:35 Dose: 10 ml Sodium Chloride (Saline Flush) 10 ml FLUSH ONETIME PRN PRN Reason: PER RADIOLOGY PROTOCOL Succinylcholine Chloride (Quelicin) Confirm Administered Dose 200 mg .ROUTE .STK -MED ONE Stop: 03/08/19 12:18 Succinylcholine Chloride (Quelicin) Confirm Administered Dose 200 mg .ROUTE .STK -MED ONE Stop: 03/10/19 07:33 - Exam Quality Assessment: DVT Prophylaxis General: Alert, Cooperative, No Acute Distress. No: Oriented Lungs: Clear to Auscultation, Normal Respiratory Effort Cardiovascular: Regular Rate, Regular Rhythm, No Murmurs GI/Abdominal Exam: Soft, Non-Tender, No Organomegaly, No Distention Extremities: Non-Tender, No Pedal Edema - Problem List Review Problem List Initiated/Reviewed/Updated: Yes - My Orders Last 24 Hours: My Active Orders 04/02/19 09:00 Magnesium Oxide 400 mg PO BID 04/02/19 12:00 Lactobacillus Rhamnosus GG [Culturelle] 1 cap PO BID 04/02/19 21:00 Insulin Glarg,Human.Rec.Analog [LantUS Solostar] 14 units SUBCUT BID 04/03/19 08:59 Admission Status [Patient Status] [ADT] Routine 04/03/19 09:01 Magnesium Sulfate/Water [Magnesium Sulfate in Water Premix] 2 gm Premix Bag 1 bag IV ONETIME 04/04/19 05:00 CBC WITH AUTO DIFF [HEME] Timed COMPREHENSIVE METABOLIC PN,CMP [CHEM] Timed MAGNESIUM [CHEM] Timed - Plan Plan:: ASSESSMENT AND PLAN - Acute respiratory failure with hypoxia and hypercapnia - Overall fairly stable since extubation 1 week ago. Secretions have come under better control over the past few days. Remains on IV meropenem, CT scan after most recent episode of vomiting showed evidence of bilateral infiltrates. -Supplement oxygen -Vigorous pulmonary toilet -Continue meropenem for a total of 5 days, plan to discontinue tomorrow Small bowel obstruction with pneumatosis - status post emergent laparotomy with small bowel resection and right colectomy 03/08. Abdomen not distended. He is having bowel movements. -Postoperative care per surgical team -He is receiving TPN, decrease rate today to 20 mL per hour -Soft low residue diet -Pain control Type 2 diabetes mellitus -Continue glucometers 4 times daily -Continue insulin in the TPN -High dose sliding scale Humalog -Lantus insulin 14 units twice daily Hypokalemia -resolved Severe schizophrenia - patient is very debilitated because of his psychiatric illness. Now that he is extubated hopefully we can get his regular medications on board in the near future. -Resume usual oral medications Acute kidney injury - resolved -Continue to closely monitor urine output and renal function Maintenance issues - - DVT prophylaxis - mechanical - GI prophylaxis - oral H2 holden - Nutrition - nothing by mouth, currently receiving TPN for nutritional support. We may try some liquids and medications later in the day - Rodriguez catheter - placed for strict intake and output monitoring with a critical patient Disposition - anticipate discharge home versus more likely the jail. the patient's hospital stay has been greatly prolonged by multiple unforeseen complications including prolonged return of bowel function postoperatively, aspiration leading to respiratory failure and reintubation.
[2019-04-03] MEDS: SCOPOLAMINE PATCH CHECK TOP SCH (09:13)
[2019-04-03] MEDS ORDERED: Magnesium Sulfate/Water 2 GM in Premix Bag 1 BAG IV ONE (10:00)
--- NOTE | 2019-04-03 10:14 | PN ---
DATE OF SERVICE: 04/03/2019 Tuan is postop. Vital signs have been stable. Oral intake has increased to 1340, liquids. Unsure of the actual amount of food he has eaten, so we will keep TPN at same rate and content and check labs in the morning. Today, the hemoglobin is 9.3, white count is 10.4, potassium 4.3, and albumin is 2.5. We will evaluate p.r.n. or in a.m. Syl Galindo PA-C /[id number]
[2019-04-03] MEDS ORDERED: 1: AA 5%/Calcium/D15W/Lytes 1,000 ML with MVI, Adult with Vitamin K 10 ML, Chromium/Copp IV SCH ×3 (13:30)
[2019-04-03] MEDS ORDERED: Furosemide 20 MG/2 ML VIAL IVPUSH ONE (17:41)
[2019-04-03] MEDS: Divalproex Sodium Delayed-Release 250 MG Tab.CR PO SCH (20:23)
[2019-04-03] MEDS: CLOZAPINE 100 MG PO SCH (20:26)
[2019-04-03] MEDS: Latanoprost 0.005% Ophth Soln 2.5 ML Bottle EYEBOTH SCH (20:27)
[2019-04-04] MEDS ORDERED: Dimethicone 20%/Zinc Oxide 25% 56 GM Spray Bottle TOP PRN (00:33)
[2019-04-04] MEDS: Sodium Chloride 5% Ophth Soln 15 ML Bottle EYEBOTH SCH ×4 (05:58→22:12)
[2019-04-04] MEDS: Nystatin Topical Powder 15 GM Bottle TOP SCH ×4 (05:58→22:12)
[2019-04-04] MEDS: Albuterol/Ipratropium 3.0-0.5 MG/3 ML Neb Soln INH SCH ×4 (07:13→20:21)
[2019-04-04] MEDS ORDERED: Central Total Parenteral Nutrition Bag SCH (07:15)
--- NOTE | 2019-04-04 07:23 | PN ---
DATE OF SERVICE: 04/04/2019 SUBJECTIVE: Tuan was transferred from ICU to [address] [place] [address]. His TPN is running at 20. Vital signs have been stable. Temp max of 99.2. Oral intake 2425, and he consumes 40% breakfast, 50% lunch, and 25% dinner. He is having bowel movements. Remainder of review of systems negative per report from nursing staff. OBJECTIVE: GENERAL: Tuan Perez is a 58-year-old male. He is sleeping soundly. VITAL SIGNS: TPR 90 and awaken TPR is 99.2, 108, 20, blood pressure 135/62. HEART: Regular rate and rhythm. LUNGS: Lungs reveal decreased breath sounds. Rhonchi with coughing. ABDOMEN: Incision is healing well. He has few Steri-Strips on. EXTREMITIES: Negative. PLAN: 1. Discharge per Surgery Department. 2. Follow up p.r.n. if needed during this hospitalization, when discharged, no followup with Surgery Department unless he would have any further problems. Discharge per hospitalist. Syl Galindo PA-C /[id number]
[2019-04-04] MEDS: Lactobacillus Rhamnosus GG (Probiotic) Cap PO SCH ×2 (09:58→20:22)
[2019-04-04] MEDS: Haloperidol 5 MG Tab PO SCH ×2 (09:58→20:21)
[2019-04-04] MEDS: Docusate Sodium 100 MG Cap PO SCH ×3 (09:58→20:21)
[2019-04-04] MEDS: Magnesium Oxide 400 MG Tab PO SCH ×2 (09:59→20:22)
[2019-04-04] MEDS: Insulin Glargine,Human Rec. Analog 100 Units/ML 3 ML Pen SUBCUT SCH (10:00)
[2019-04-04] MEDS: SCOPOLAMINE PATCH CHECK TOP SCH (10:06)
[2019-04-04] MEDS: Famotidine 20 MG Tab PO SCH ×2 (10:06→20:22)
[2019-04-04] MEDS: Atenolol 50 MG Tab PO SCH (10:07)
[2019-04-04] MEDS: Levothyroxine 88 MCG Tab PO SCH (10:07)
[2019-04-04] MEDS: Doxazosin 4 MG Tab PO SCH (10:08)
--- NOTE | 2019-04-04 10:12 | PCM.PN ---
- General Info Date of Service: 04/04/19 Subjective Update: No acute events overnight but patient has had increasing oxygen requirements this morning. He has a weak cough but oxygenation does improve following episodes of coughing. He is not able to mobilize sputum to the point that he can expectorate it. He has not had any fevers. He has developed diarrhea and does endorse left-sided abdominal pain. White blood cell count has risen today from yesterday. He has been eating about 50% of his meals. Functional Status: Reports: Pain Controlled, Tolerating Diet - Review of Systems General: Reports: Weakness. Denies: Fever Pulmonary: Reports: Shortness of Breath Gastrointestinal: Reports: Abdominal Pain, Diarrhea - Patient Data Vitals - Most Recent: Last Vital Signs Temp 36.9 C 04/04/19 07:19 Pulse 108 H 04/04/19 10:07 Resp 18 04/04/19 07:19 BP 121/51 L 04/04/19 10:08 Pulse Ox 89 L 04/04/19 07:46 Weight - Most Recent: 71.7 kg I&O - Last 24 Hours: Intake & Output 04/03/19 04/04/19 04/04/19 22:59 06:59 14:59 Intake Total 1700 275 460 Balance 1700 275 460 Lab Results Last 24 Hours: Laboratory Results - last 24 hr 04/04/19 04/04/19 Range/Units 04:00 04:00 WBC 16.4 H (4.5-11.0) K/uL RBC 3.20 L (4.30-5.90) M/uL Hgb 9.1 L (12.0-15.0) g/dL Hct 29.8 L (40.0-54.0) % MCV 93 (80-98) fL MCH 28 (27-31) pg MCHC 31 L (32-36) % Plt Count 258 (150-400) K/uL Neut % (Auto) 73 H (36-66) % Lymph % (Auto) 14 L (24-44) % Barnwell % (Auto) 7 H (2-6) % Eos % (Auto) 6 H (2-4) % Baso % (Auto) 0 (0-1) % Sodium 142 (140-148) mmol/L Potassium 4.3 (3.6-5.2) mmol/L Chloride 105 (100-108) mmol/L Carbon Dioxide 28 (21-32) mmol/L Anion Gap 8.9 (5.0-14.0) mmol/L BUN 32 H (7-18) mg/dL Creatinine 0.9 (0.8-1.3) mg/dL Est Cr Clr Drug Dosing 74.91 mL/min Estimated GFR (MDRD) > 60 (>60) Glucose 97 (74-106) mg/dL Calcium 8.0 L (8.5-10.1) mg/dL Magnesium 1.9 (1.8-2.4) mg/dL Total Bilirubin 0.5 (0.2-1.0) mg/dL AST 16 (15-37) U/L ALT 79 H (12-78) U/L Alkaline Phosphatase 173 H (46-116) U/L Total Protein 5.4 L (6.4-8.2) g/dL Albumin 2.3 L (3.4-5.0) g/dL Globulin 3.1 (2.3-3.5) g/dL Albumin/Globulin Ratio 0.7 L (1.2-2.2) Med Orders - Current: Current Medications Albuterol (Proventil Neb Soln) 2.5 mg NEB Q4H PRN PRN Reason: Shortness Of Breath/wheezing Last Admin: 03/10/19 00:24 Dose: 2.5 mg Albuterol/Ipratropium (Duoneb 3.0-0.5 Mg/3 Ml) 3 ml INH QIDRT [facility] Last Admin: 04/04/19 07:13 Dose: 3 ml Atenolol (Tenormin) 100 mg PO DAILY [facility] Last Admin: 04/04/19 10:07 Dose: 100 mg Dextrose (Glutose 15) 15 gm PO ASDIRECTED PRN PRN Reason: HYPOGLYCEMIA Dextrose/Water (Dextrose 50% In Water) 50 ml IVPUSH ASDIRECTED PRN PRN Reason: HYPOGLYCEMIA Dimethicone/Zinc Oxide (Rash Relief-Zinc Oxide Howard) 1 gm TOP ASDIRECTED PRN PRN Reason: Rash Diphenhydramine HCl (Benadryl) 25 mg IVPUSH Q4H PRN PRN Reason: Itching Last Admin: 04/01/19 01:49 Dose: 25 mg Divalproex Sodium (Divalproex Sodium) 1,500 mg PO BEDTIME [facility] Last Admin: 04/03/19 20:23 Dose: 1,500 mg Docusate Sodium (Colace) 100 mg PO BID [facility] Last Admin: 04/04/19 10:08 Dose: Not Given Doxazosin Mesylate (Cardura) 4 mg PO DAILY [facility] Last Admin: 04/04/19 10:08 Dose: 4 mg Famotidine (Pepcid) 40 mg PO BID [facility] Last Admin: 04/04/19 10:06 Dose: 40 mg Glucagon (Glucagen) 1 mg IM ASDIRECTED PRN PRN Reason: HYPOGLYCEMIA Haloperidol (Haldol) 10 mg PO BID [facility] Last Admin: 04/04/19 09:58 Dose: 10 mg Haloperidol Lactate (Haldol) 2 mg IVPUSH Q4H PRN PRN Reason: Agitation Last Admin: 04/02/19 05:33 Dose: 2 mg Heparin Sodium (Porcine) (Heparin Lock Flush 100 Units/Ml) 500 units FLUSH ASDIRECTED PRN PRN Reason: Keep Vein Open Last Admin: 03/31/19 00:00 Dose: 500 units Insulin Human Lispro (Humalog) 0 unit SUBCUT QIDACANDBED [facility]; Protocol Lactobacillus Rhamnosus (Culturelle) 1 cap PO BID [facility] Last Admin: 04/04/19 09:58 Dose: 1 cap Latanoprost (Xalatan 0.005% Ophth Soln) 0 ml EYEBOTH BEDTIME [facility] Last Admin: 04/03/19 20:27 Dose: 1 drop Levothyroxine Sodium (Synthroid) 88 mcg PO ACBREAKFAST [facility] Last Admin: 04/04/19 10:07 Dose: 88 mcg Lorazepam (Ativan) 1 mg IVPUSH Q1H PRN PRN Reason: Anxiety Last Admin: 04/03/19 00:50 Dose: 1 mg Lorazepam (Ativan) 1 mg PO BID [facility] Last Admin: 04/03/19 20:22 Dose: 1 mg Magnesium Oxide (Magnesium Oxide) 400 mg PO BID [facility] Last Admin: 04/04/19 09:59 Dose: 400 mg Scopolamine Patch (Check) 1 each TOP DAILY [facility] Last Admin: 04/04/19 10:06 Dose: Not Given Clozapine 100mg (Ptom) 0 mg PO BEDTIME [facility] Last Admin: 04/03/19 20:26 Dose: 450 mg Nystatin (Nystop) 0 gm TOP QID [facility] Last Admin: 04/04/19 10:09 Dose: 1 applic Ondansetron HCl (Zofran) 4 mg IVPUSH Q4H PRN PRN Reason: Nausea/Vomiting Last Admin: 03/18/19 17:31 Dose: 4 mg Senna/Docusate Sodium (Senna Plus) 1 tab PO DAILY [facility] Last Admin: 04/04/19 10:08 Dose: Not Given Sodium Chloride (Joseph 128 5% Ophth Soln) 0 ml EYEBOTH QID [facility] Last Admin: 04/04/19 10:09 Dose: 1 ea Sodium Chloride (Sodium Chloride 0.9%) 3 ml INH ASDIRECTED PRN PRN Reason: mix with racepinephrine neb Last Admin: 03/28/19 00:35 Dose: 3 ml Zinc Acetate/Diphenhydramine (Banophen Anti-Itch 2% Crm) 0 gm TOP QID PRN PRN Reason: Perineal Comfort Measure Discontinued Medications Acetylcysteine (Mucomyst 20%) 400 mg INH BIDRT [facility] Last Admin: 03/12/19 07:48 Dose: 200 mg Acetylcysteine (Mucomyst 20%) 200 mg INH BIDRT [facility] Stop: 03/12/19 23:59 Last Admin: 03/12/19 20:44 Dose: 200 mg Acetylcysteine (Mucomyst 20%) 200 mg NEB BIDRT [facility] Last Admin: 03/27/19 07:06 Dose: 200 mg Atropine Sulfate (Atropine 1%) 0 ml SL BID [facility] Last Admin: 03/29/19 09:06 Dose: 4 drop Bisacodyl (Dulcolax) 10 mg PO BID [facility] Last Admin: 03/17/19 20:35 Dose: Not Given Bisacodyl (Dulcolax) 10 mg RECTAL ONETIME ONE Stop: 03/17/19 17:01 Last Admin: 03/17/19 17:10 Dose: 10 mg Bupivacaine HCl (Marcaine 0.5%) Confirm Administered Dose 50 ml .ROUTE .STK-MED ONE Stop: 03/10/19 06:23 Bupivacaine HCl (Marcaine 0.5%) Confirm Administered Dose 50 ml .ROUTE .STK-MED ONE Stop: 03/11/19 07:19 Last Admin: 03/11/19 07:28 Dose: 15 ml Ropivacaine 36 ml/Dexamethasone 8 mg/Epinephrine HCl 0.4 mg/ Sodium Chloride 41.6 ml 0 ml NERVRT ASDIRECTED [facility] Last Admin: 03/08/19 15:05 Dose: 80 syringe Ropivacaine 36 ml/Dexamethasone 8 mg/Epinephrine HCl 0.4 mg/ Sodium Chloride 41.6 ml 0 ml NERVRT ASDIRECTED [facility] Last Admin: 03/11/19 07:41 Dose: 80 syringe Dexamethasone (Dexamethasone) Confirm Administered Dose 4 mg .ROUTE .STK-MED ONE Stop: 03/08/19 12:18 Dimethicone/Zinc Oxide (Rash Relief-Zinc Oxide Howard) 0 gm TOP ASDIRECTED PRN PRN Reason: Perineal Comfort Measure Last Admin: 03/29/19 15:40 Dose: 6 spray Diphenhydramine HCl (Benadryl) 25 mg IVPUSH Q6H PRN PRN Reason: Itching Diphenhydramine HCl (Benadryl) 25 mg PO Q6H PRN PRN Reason: Itching Fentanyl (Sublimaze) Confirm Administered Dose 250 mcg .ROUTE .STK-MED ONE Stop: 03/08/19 12:19 Furosemide (Lasix) 20 mg IVPUSH ONETIME ONE Stop: 03/09/19 21:56 Last Admin: 03/09/19 22:10 Dose: 20 mg Furosemide (Lasix) Confirm Administered Dose 20 mg .ROUTE .STK-MED ONE Stop: 03/09/19 22:05 Last Admin: 03/09/19 22:10 Dose: Not Given Furosemide (Lasix) 20 mg IVPUSH ONETIME ONE Stop: 03/10/19 06:33 Last Admin: 03/10/19 07:20 Dose: 20 mg Furosemide (Lasix) 20 mg IVPUSH ONETIME ONE Stop: 03/12/19 18:01 Last Admin: 03/12/19 17:43 Dose: 20 mg Furosemide (Lasix) 20 mg IVPUSH ONETIME ONE Stop: 03/12/19 07:31 Last Admin: 03/12/19 07:44 Dose: 20 mg Furosemide (Lasix) 10 mg IVPUSH Q12H [facility] Stop: 03/13/19 21:01 Last Admin: 03/13/19 20:29 Dose: 10 mg Furosemide (Lasix) 20 mg IVPUSH NOW ONE Stop: 03/15/19 11:31 Last Admin: 03/15/19 11:38 Dose: 20 mg Furosemide (Lasix) 20 mg IVPUSH ONETIME ONE Stop: 03/16/19 13:31 Last Admin: 03/16/19 14:18 Dose: 20 mg Furosemide (Lasix) 20 mg IVPUSH NOW ONE Stop: 03/17/19 09:16 Last Admin: 03/17/19 09:47 Dose: 20 mg Furosemide (Lasix) 20 mg IVPUSH Q12H [facility] Stop: 03/22/19 21:31 Last Admin: 03/22/19 22:10 Dose: 20 mg Furosemide (Lasix) 20 mg IVPUSH Q12H [facility] Stop: 03/23/19 22:01 Last Admin: 03/23/19 22:47 Dose: 20 mg Furosemide (Lasix) 20 mg IVPUSH Q8H [facility] Stop: 03/25/19 02:01 Last Admin: 03/25/19 02:11 Dose: 20 mg Furosemide (Lasix) 20 mg IVPUSH Q12H [facility] Last Admin: 03/25/19 21:32 Dose: 20 mg Furosemide (Lasix) 20 mg IVPUSH Q8H [facility] Last Admin: 03/28/19 09:14 Dose: 20 mg Furosemide (Lasix) 20 mg IVPUSH Q12H [facility] Last Admin: 03/28/19 21:46 Dose: 20 mg Furosemide (Lasix) 20 mg IVPUSH ONETIME ONE Stop: 04/03/19 17:42 Last Admin: 04/03/19 18:14 Dose: 20 mg Glycopyrrolate (Robinul) Confirm Administered Dose 1 mg .ROUTE .STK-MED ONE Stop: 03/08/19 12:18 Haloperidol Lactate (Haldol) 5 mg IVPUSH BID [facility] Last Admin: 03/09/19 09:06 Dose: 5 mg Haloperidol Lactate (Haldol) 2.5 mg IVPUSH BID [facility] Last Admin: 03/31/19 08:37 Dose: 2.5 mg Heparin Sodium (Porcine) (Heparin Sodium) Confirm Administered Dose 5,000 units .ROUTE .STK-MED ONE Stop: 03/10/19 07:04 Last Admin: 03/10/19 07:57 Dose: Not Given Heparin Sodium (Porcine) (Heparin Lock Flush 100 Units/Ml) Confirm Administered Dose 1,000 units .ROUTE .STK-MED ONE Stop: 03/11/19 07:32 Last Admin: 03/11/19 08:31 Dose: Not Given Heparin Sodium (Porcine) (Heparin Sodium) Confirm Administered Dose 5,000 units .ROUTE .[facility] ONE Stop: 03/18/19 23:03 Last Admin: 03/19/19 02:36 Dose: Not Given Hydromorphone HCl (Dilaudid Process Stripper 15 Mg In Ns 30 Ml) 0 mg IV ASDIRECTED PRN; Protocol PRN Reason: PAIN Last Admin: 03/16/19 16:43 Dose: 15 mg Sodium Chloride (Normal Saline) 1,000 mls @ 1,000 mls/hr IV ASDIRECTED [facility] Last Admin: 03/08/19 10:02 Dose: 1,000 mls/hr Ampicillin Sodium/Sulbactam (Sodium 1.5 gm/ Sodium Chloride) 50 mls @ 100 mls/ hr IV Q6H [facility] Last Admin: 03/08/19 13:30 Dose: 100 mls/hr Aztreonam 1 gm/ Sodium (Chloride) 50 mls @ 100 mls/hr IV Q12H [facility] Last Admin: 03/08/19 13:30 Dose: 100 mls/hr Lactated Ringer's (Ringers, Lactated) 1,000 mls @ 150 mls/hr IV ASDIRECTED [facility] Last Admin: 03/08/19 13:31 Dose: 150 mls/hr Lactated Ringer's (Ringers, Lactated) Confirm Administered Dose 1,000 mls @ as directed .ROUTE .[facility] ONE Stop: 03/08/19 15:16 Lactated Ringer's (Ringers, Lactated) 1,000 mls @ 100 mls/hr IV ASDIRECTED [facility] Last Admin: 03/09/19 03:26 Dose: 100 mls/hr Dextrose/Lactated Ringer's (Dextrose 5%-Lactated Ringers) 1,000 mls @ 100 mls/ hr IV ASDIRECTED [facility] Stop: 03/12/19 11:59 Last Admin: 03/11/19 23:35 Dose: 100 mls/hr Ampicillin Sodium/Sulbactam (Sodium 3 gm/ Sodium Chloride) 100 mls @ 200 mls/ hr IV Q6H [facility] Last Admin: 03/13/19 05:19 Dose: 200 mls/hr Aztreonam 1 gm/ Sodium (Chloride) 50 mls @ 100 mls/hr IV Q8H [facility] Last Admin: 03/13/19 04:23 Dose: 100 mls/hr Valproic Acid 500 mg/ Sodium (Chloride) 55 mls @ 55 mls/hr IV Q8H [facility] Last Admin: 03/31/19 04:58 Dose: 55 mls/hr Potassium Chloride 20 meq/Lidocaine HCl 2 ml/ Sodium Chloride 112 mls @ 56 mls/ hr IV Q2H [facility] Stop: 03/09/19 15:59 Last Admin: 03/09/19 17:30 Dose: 56 mls/hr Lactated Ringer's (Ringers, Lactated) 750 mls @ 750 mls/hr IV BOLUS ONE Stop: 03/09/19 16:25 Last Admin: 03/09/19 15:53 Dose: 750 mls/hr Lactated Ringer's (Ringers, Lactated) 750 mls @ 999 mls/hr IV BOLUS ONE Stop: 03/09/19 21:15 Last Admin: 03/09/19 21:08 Dose: 999 mls/hr Heparin Sodium (Porcine) 5,000 (units/ Sodium Chloride) 501 mls @ 5 mls/hr IV ASDIRECTED [facility] Last Admin: 03/12/19 13:58 Dose: 5 mls/hr Propofol (Diprivan 100 Ml) 100 mls @ 2.191 mls/hr IV TITRATE [facility]; Protocol Last Titration: 03/15/19 07:18 Dose: 0 mcg/kg/min, 0 mls/hr Linezolid 600 mg/ Premix 300 mls @ 300 mls/hr IV Q12H [facility] Last Admin: 03/11/19 21:53 Dose: 300 mls/hr Potassium Chloride 20 meq/Lidocaine HCl 2 ml/ Sodium Chloride 112 mls @ 56 mls/ hr IV Q2H [facility] Stop: 03/10/19 16:29 Last Admin: 03/10/19 16:07 Dose: 56 mls/hr Potassium Chloride 20 meq/ (Premix) 0 mls @ 50 mls/hr IV Q2H [facility] Stop: 03/11/19 07:28 Last Admin: 03/11/19 07:32 Dose: 50 mls/hr Magnesium Sulfate 2 gm/ Premix 50 mls @ 25 mls/hr IV Q6H [facility] Last Admin: 03/12/19 04:27 Dose: 25 mls/hr Potassium Phosphate 20 mmole/ (Sodium Chloride) 256.6667 mls @ 85 mls/hr IV Q3H [facility] Stop: 03/11/19 17:59 Last Admin: 03/11/19 14:42 Dose: 85 mls/hr Multivitamins/Minerals 10 ml/Chromium/Copper/Manganese/Seleni/Zn 1 ml/ Amino Ac/ Electrol/Dextrose/Calcium 1,011 mls @ 82 mls/hr IV .BY DURATION [facility] Last Admin: 03/13/19 12:34 Dose: 82 mls/hr Amino Ac/Electrol/Dextrose/Calcium (Clinimix E 12/08) 1,000 mls @ 82 mls/hr IV .BY DURATION [facility] Last Admin: 03/14/19 01:20 Dose: 82 mls/hr Sodium Chloride (Normal Saline) 1,000 mls @ 20 mls/hr IV ASDIRECTED [facility] Last Admin: 03/13/19 22:58 Dose: 20 mls/hr Potassium Phosphate 20 mmole/ (Sodium Chloride) 256.6667 mls @ 85.556 mls/hr IV Q3H [facility] Stop: 03/12/19 16:59 Last Admin: 03/12/19 14:49 Dose: 85.556 mls/hr Potassium Chloride 20 meq/ (Premix) 100 mls @ 50 mls/hr IV ONETIME ONE Stop: 03/13/19 10:59 Last Admin: 03/13/19 09:29 Dose: 50 mls/hr Potassium Phosphate 30 mmole/ (Sodium Chloride) 110 mls @ 30 mls/hr IV ONETIME ONE Stop: 03/13/19 14:39 Last Admin: 03/13/19 12:14 Dose: 30 mls/hr Linezolid 600 mg/ Premix 300 mls @ 300 mls/hr IV Q12H [facility] Last Admin: 03/20/19 09:52 Dose: 300 mls/hr Magnesium Sulfate 2 gm/ Premix 50 mls @ 25 mls/hr IV Q6H [facility] Stop: 03/16/19 03:59 Last Admin: 03/16/19 01:59 Dose: 25 mls/hr Azithromycin 250 mg/ Sodium (Chloride) 150 mls @ 150 mls/hr IV Q12H [facility] Azithromycin 250 mg/ Sodium (Chloride) 150 mls @ 150 mls/hr IV Q24H [facility] Last Admin: 03/17/19 11:28 Dose: 150 mls/hr Multivitamins/Minerals 10 ml/Chromium/Copper/Manganese/Seleni/Zn 1 ml/ Amino Ac/ Electrol/Dextrose/Calcium 1,011 mls @ 82 mls/hr IV .BY DURATION [facility] Stop: 03/18/19 14:59 Last Admin: 03/17/19 14:26 Dose: 82 mls/hr Amino Ac/Electrol/Dextrose/Calcium (Clinimix E 5/15) 1,000 mls @ 82 mls/hr IV .BY DURATION [facility] Stop: 03/18/19 14:59 Last Admin: 03/18/19 03:38 Dose: 82 mls/hr Multivitamins/Minerals 10 ml/Chromium/Copper/Manganese/Seleni/Zn 1 ml/ Amino Ac/ Electrol/Dextrose/Calcium 1,011 mls @ 80 mls/hr IV .BY DURATION [facility] Last Admin: 03/18/19 16:05 Dose: 40 mls/hr Amino Ac/Electrol/Dextrose/Calcium (Clinimix E 5/15) 1,000 mls @ 40 mls/hr IV .BY DURATION [facility] Piperacillin Sod/Tazobactam (Sod 3.375 gm/ Sodium Chloride) 50 mls @ 100 mls/ hr IV Q6H [facility] Last Admin: 03/19/19 04:17 Dose: 100 mls/hr Sodium Chloride (Normal Saline) Confirm Administered Dose 50 mls @ as directed .ROUTE .STK-MED ONE Stop: 03/18/19 21:35 Last Admin: 03/18/19 21:40 Dose: Not Given Propofol (Diprivan 100 Ml) Confirm Administered Dose 100 mls @ as directed .ROUTE .STK-MED ONE Stop: 03/18/19 23:04 Last Admin: 03/19/19 01:04 Dose: Not Given Propofol (Diprivan 100 Ml) 100 mls @ 2.195 mls/hr IV TITRATE [facility]; Protocol Last Titration: 03/27/19 07:00 Dose: 0 mcg/kg/min, 0 mls/hr Heparin Sodium (Porcine) 5,000 (units/ Sodium Chloride) 501 mls @ 0.1 mls/hr IV ASDIRECTED [facility] Last Admin: 03/27/19 15:35 Dose: 1 units/hr, 0.1 mls/hr Sodium Chloride (Normal Saline) 500 mls @ 999 mls/hr IV .BOLUS ONE Stop: 03/19/19 00:00 Last Admin: 03/19/19 00:00 Dose: 999 mls/hr Sodium Chloride (Normal Saline) 1,000 mls @ 20 mls/hr IV ASDIRECTED [facility] Last Admin: 03/30/19 23:53 Dose: 20 mls/hr Sodium Chloride (Normal Saline) 100 mls @ 4 mls/sec IV ASDIRECTED [facility] Stop: 03/19/19 10:00 Last Admin: 03/19/19 07:45 Dose: 4 mls/sec Multivitamins/Minerals 10 ml/Chromium/Copper/Manganese/Seleni/Zn 1 ml/ Amino Ac/ Electrol/Dextrose/Calcium 1,011 mls @ 80 mls/hr IV .BY DURATION [facility] Stop: 03/19/19 20:00 Amino Ac/Electrol/Dextrose/Calcium (Clinimix E 5/15) 1,000 mls @ 80 mls/hr IV .BY DURATION [facility] Stop: 03/19/19 20:00 Last Admin: 03/19/19 08:12 Dose: 80 mls/hr Piperacillin/Tazobactam/ (Dextrose 3.375 gm/ Premix) 50 mls @ 100 mls/hr IV Q6H [facility] Last Admin: 03/25/19 09:29 Dose: 100 mls/hr Multivitamins/Minerals 10 ml/Chromium/Copper/Manganese/Seleni/Zn 1 ml/ Amino Ac/ Electrol/Dextrose/Calcium 1,011 mls @ 82 mls/hr IV .BY DURATION [facility] Stop: 03/23/19 20:00 Last Admin: 03/22/19 21:45 Dose: 82 mls/hr Amino Ac/Electrol/Dextrose/Calcium (Clinimix E 5/15) 1,000 mls @ 82 mls/hr IV .BY DURATION [facility] Stop: 03/23/19 20:00 Last Admin: 03/23/19 11:17 Dose: Not Given Albumin Human (Albumin 25%) 25 gm in 100 mls @ 25 mls/hr IV Q24H [facility] Stop: 03/23/19 11:59 Last Admin: 03/23/19 08:20 Dose: 25 mls/hr Albumin Human (Albumin 25%) 25 gm in 100 mls @ 25 mls/hr IV Q24H [facility] Stop: 03/23/19 15:59 Last Admin: 03/23/19 11:22 Dose: 25 mls/hr Azithromycin 250 mg/ Sodium (Chloride) 150 mls @ 150 mls/hr IV Q24H [facility] Last Admin: 03/24/19 11:55 Dose: 150 mls/hr Potassium Chloride 20 meq/ (Premix) 100 mls @ 50 mls/hr IV ONETIME ONE Stop: 03/21/19 10:59 Last Admin: 03/21/19 09:29 Dose: 50 mls/hr Potassium Chloride 40 meq/ (Premix) 100 mls @ 25 mls/hr IV ONETIME ONE Stop: 03/22/19 13:59 Last Admin: 03/22/19 10:01 Dose: 25 mls/hr Magnesium Sulfate 2 gm/ Premix 50 mls @ 25 mls/hr IV Q6H [facility] Stop: 03/26/19 03:59 Last Admin: 03/24/19 08:07 Dose: 25 mls/hr Potassium Chloride 40 meq/ (Premix) 100 mls @ 25 mls/hr IV ONETIME ONE Stop: 03/23/19 13:59 Last Admin: 03/23/19 09:22 Dose: 25 mls/hr Multivitamins/Minerals 10 ml/Chromium/Copper/Manganese/Seleni/Zn 1 ml/ Amino Ac/ Electrol/Dextrose/Calcium 1,011 mls @ 82 mls/hr IV .BY DURATION [facility] Last Admin: 04/02/19 02:05 Dose: 82 mls/hr Amino Ac/Electrol/Dextrose/Calcium (Clinimix E 5/15) 1,000 mls @ 82 mls/hr IV .BY DURATION [facility] Last Admin: 04/01/19 14:27 Dose: 82 mls/hr Potassium Chloride 40 meq/ (Premix) 100 mls @ 25 mls/hr IV ONETIME ONE Stop: 03/24/19 13:59 Last Admin: 03/24/19 09:54 Dose: 25 mls/hr Potassium Chloride 40 meq/ (Premix) 100 mls @ 25 mls/hr IV ONETIME ONE Stop: 03/25/19 13:59 Last Admin: 03/25/19 10:32 Dose: 25 mls/hr Fat Emulsion Intravenous (Intralipid 20%) 100 mls @ 8.3 mls/hr IV Q48H [facility] Last Admin: 03/29/19 15:52 Dose: 8.3 mls/hr Magnesium Sulfate 2 gm/ Premix 50 mls @ 25 mls/hr IV Q6H [facility] Stop: 03/30/19 03:59 Last Admin: 03/30/19 03:14 Dose: 25 mls/hr Meropenem 1 gm/ Sodium (Chloride) 50 mls @ 100 mls/hr IV Q8H [facility] Last Admin: 04/03/19 08:02 Dose: 100 mls/hr Sodium Chloride (Normal Saline) 75 mls @ 3 mls/sec IV ASDIRECTED [facility] Last Admin: 03/30/19 10:36 Dose: 3 mls/sec Sodium Chloride (Normal Saline) 100 mls @ 3 mls/sec IV ONETIME ONE Stop: 03/30/19 10:27 Last Admin: 03/30/19 19:19 Dose: Not Given Magnesium Sulfate 2 gm/ Premix 50 mls @ 25 mls/hr IV Q6H [facility] Stop: 04/02/19 10:00 Last Admin: 04/02/19 09:24 Dose: 25 mls/hr Multivitamins/Minerals 10 ml/Chromium/Copper/Manganese/Seleni/Zn 1 ml/ Amino Ac/ Electrol/Dextrose/Calcium 1,011 mls @ 40 mls/hr IV .BY DURATION [facility] Stop: 04/03/19 13:00 Last Admin: 04/02/19 13:35 Dose: 40 mls/hr Amino Ac/Electrol/Dextrose/Calcium (Clinimix E 5/15) 1,000 mls @ 40 mls/hr IV .BY DURATION [facility] Stop: 04/03/19 13:00 Multivitamins/Minerals 10 ml/Chromium/Copper/Manganese/Seleni/Zn 1 ml/ Amino Ac/ Electrol/Dextrose/Calcium 1,011 mls @ 20 mls/hr IV .BY DURATION [facility] Last Admin: 04/03/19 15:23 Dose: 20 mls/hr Amino Ac/Electrol/Dextrose/Calcium (Clinimix E 5/15) 1,000 mls @ 20 mls/hr IV .BY DURATION [facility] Magnesium Sulfate 2 gm/ Premix 50 mls @ 25 mls/hr IV ONETIME ONE Stop: 04/03/19 11:59 Last Admin: 04/03/19 10:05 Dose: 25 mls/hr Insulin Glargine (Lantus Solostar) 10 units SUBCUT BID [facility] Last Admin: 03/16/19 09:27 Dose: 10 unit Insulin Glargine (Lantus Solostar) 14 units SUBCUT BID [facility] Last Admin: 03/18/19 09:06 Dose: 14 units Insulin Glargine (Lantus Solostar) 7 units SUBCUT BID [facility] Stop: 03/18/19 21:01 Last Admin: 03/18/19 21:25 Dose: Not Given Insulin Glargine (Lantus Solostar) 12 units SUBCUT BID [facility] Last Admin: 04/02/19 08:24 Dose: 12 units Insulin Glargine (Lantus Solostar) 14 units SUBCUT BID [facility] Last Admin: 04/03/19 08:26 Dose: 14 unit Insulin Glargine (Lantus Solostar) 10 units SUBCUT BID [facility] Last Admin: 04/04/19 10:00 Dose: 10 units Insulin Human Lispro (Humalog) 0 unit SUBCUT Q6H PRN; Protocol PRN Reason: MEDIUM CORRECTIONAL DOSING Last Admin: 03/14/19 17:42 Dose: 7 units Insulin Human Lispro (Humalog) 15 unit SUBCUT ONETIME ONE Stop: 03/14/19 12:05 Last Admin: 03/14/19 12:10 Dose: 15 units Insulin Human Lispro (Humalog) 0 unit SUBCUT ASDIRECTED [facility]; Protocol Last Admin: 04/02/19 08:26 Dose: 3 units Insulin Human Lispro (Humalog) 0 unit SUBCUT ONETIME ONE Stop: 03/15/19 00:16 Last Admin: 03/15/19 00:25 Dose: 12 units Iohexol (Omnipaque-300) 100 ml IVPUSH . DIRECTED [facility] Iopamidol (Isovue-370 (76%)) 100 ml IV . DIRECTED [facility] Stop: 03/19/19 10:00 Last Admin: 03/19/19 07:45 Dose: 100 ml Iopamidol (Isovue-300 (61%)) 100 ml IV . DIRECTED PRN PRN Reason: RADIOLOGY EXAM Last Admin: 03/30/19 10:36 Dose: 100 ml Levothyroxine Sodium (Synthroid) 100 mcg IVPUSH DAILY [facility] Last Admin: 03/31/19 08:33 Dose: 100 mcg Lidocaine HCl (Xylocaine-Mpf 1%) 5 ml INJECT ONETIME ONE Stop: 03/11/19 05:30 Last Admin: 03/11/19 05:39 Dose: 2 ml Lidocaine/Epinephrine (Xylocaine 1% With Epinephrine 1:100,000) Confirm Administered Dose 50 ml .ROUTE .STK-MED ONE Stop: 03/10/19 06:23 Lidocaine/Epinephrine (Xylocaine 1% With Epinephrine 1:100,000) Confirm Administered Dose 50 ml .ROUTE .STK-MED ONE Stop: 03/11/19 07:19 Last Admin: 03/11/19 07:28 Dose: 15 ml Linezolid (Zyvox) 600 mg IRR .STK-MED ONE Stop: 03/11/19 07:39 Last Admin: 03/11/19 07:38 Dose: 600 mg Lorazepam (Ativan) 0.5 mg IVPUSH BID [facility] Last Admin: 03/09/19 09:09 Dose: 0.5 mg Lorazepam (Ativan) 0.5 mg IVPUSH Q4H PRN PRN Reason: Anxiety Last Admin: 03/27/19 10:07 Dose: 0.5 mg Lorazepam (Ativan) 0.25 mg IVPUSH BID [facility] Last Admin: 03/10/19 09:09 Dose: 0.25 mg Lorazepam (Ativan) 0.5 mg IVPUSH BID [facility] Last Admin: 03/30/19 21:01 Dose: 0.5 mg Meropenem (Merrem) Confirm Administered Dose 500 mg .ROUTE .STK-MED ONE Stop: 03/08/19 12:05 Last Admin: 03/08/19 14:00 Dose: 500 mg Meropenem (Merrem) Confirm Administered Dose 500 mg .ROUTE .STK-MED ONE Stop: 03/10/19 06:23 Meropenem (Merrem) Confirm Administered Dose 500 mg .ROUTE .STK-MED ONE Stop: 03/11/19 06:45 Last Admin: 03/11/19 07:38 Dose: 500 mg Methylprednisolone Sodium Succinate (Solu-Medrol) 40 mg IVPUSH Q6H [facility] Last Admin: 03/20/19 09:50 Dose: 40 mg Methylprednisolone Sodium Succinate (Solu-Medrol) 40 mg IVPUSH Q6H [facility] Last Admin: 04/01/19 10:25 Dose: 40 mg Methylprednisolone Sodium Succinate (Solu-Medrol) 40 mg IVPUSH Q12H [facility] Last Admin: 04/01/19 21:19 Dose: 40 mg Metoprolol Tartrate (Lopressor) 5 mg IV Q6H [facility] Last Admin: 03/26/19 07:56 Dose: Not Given Metoprolol Tartrate (Lopressor) 2.5 mg IV Q6H [facility] Last Admin: 03/29/19 05:23 Dose: 2.5 mg Metoprolol Tartrate (Lopressor) 5 mg IV Q6H [facility] Last Admin: 03/31/19 04:53 Dose: 5 mg Morphine Sulfate (Morphine) 2 mg IVPUSH Q1H PRN PRN Reason: Other Last Admin: 03/31/19 01:30 Dose: 2 mg Naloxone HCl (Narcan) 0.1 mg IV ASDIRECTED PRN PRN Reason: decreased respiratory rate Neostigmine Methylsulfate (Neostigmine) Confirm Administered Dose 5 mg .ROUTE .STK-MED ONE Stop: 03/08/19 12:18 Non-Formulary Medication (Total Parenteral Nutrition, Central) 1,000 ml .XX .Continue Order [facility] Stop: 03/22/19 12:00 Non-Formulary Medication (Total Parenteral Nutrition, Central) 1,000 ml .XX .Continue Order [facility] Stop: 03/23/19 12:00 Non-Formulary Medication (Total Parenteral Nutrition, Central) 1,000 ml .XX .Continue Order [facility] Stop: 03/24/19 15:00 Non-Formulary Medication (Total Parenteral Nutrition, Central) 1,000 ml .XX .Continue Order [facility] Stop: 03/26/19 12:00 Non-Formulary Medication (Total Parenteral Nutrition, Central) 0 ml IV ASDIRECTED [facility] Stop: 03/31/19 13:01 Non-Formulary Medication (Total Parenteral Nutrition, Central) 1,000 ml .XX .Continue Order [facility] Stop: 04/01/19 10:00 Non-Formulary Medication (Total Parenteral Nutrition, Central) 1,000 ml .XX .Continue Order [facility] Stop: 04/02/19 10:00 Non-Formulary Medication (Total Parenteral Nutrition, Central) 1,000 ml .XX .Continue Order [facility] Stop: 04/03/19 10:00 Non-Formulary Medication (Total Parenteral Nutrition, Central) 1,000 ml .XX .Continue Order [facility] Stop: 04/04/19 10:00 Nystatin (Nystop) 0 gm TOP QID [facility] Last Admin: 03/31/19 11:05 Dose: 1 applic Ondansetron HCl (Zofran) Confirm Administered Dose 4 mg .ROUTE .STK-MED ONE Stop: 03/08/19 12:18 Ondansetron HCl (Zofran) 4 mg IVPUSH Q6H PRN PRN Reason: Nausea/Vomiting Pantoprazole Sodium (Protonix Iv) 40 mg IV Q24H [facility] Last Admin: 03/30/19 17:44 Dose: 40 mg Piperacillin Sod/Tazobactam Sod (Zosyn) Confirm Administered Dose 3.375 gm .ROUTE .STK-MED ONE Stop: 03/18/19 21:34 Last Admin: 03/18/19 21:40 Dose: Not Given Propofol (Diprivan 20 Ml) Confirm Administered Dose 200 mg .ROUTE .STK-MED ONE Stop: 03/08/19 12:18 Propofol (Diprivan 20 Ml) Confirm Administered Dose 200 mg .ROUTE .STK-MED ONE Stop: 03/10/19 07:33 Racepinephrine (S-2 2.25%) 0.5 ml NEB Q2H PRN PRN Reason: Shortness of Breath Last Admin: 03/28/19 00:32 Dose: 0.5 ml Rocuronium [place] (Zemuron) Confirm Administered Dose 50 mg .ROUTE .STK-MED ONE Stop: 03/08/19 12:18 Scopolamine (Transderm-Scop) 1.5 mg TRDERM Q72H [facility] Last Admin: 03/28/19 10:35 Dose: 1.5 mg Sodium Chloride (Saline Flush) 10 ml FLUSH ONETIME ONE Stop: 03/30/19 10:02 Last Admin: 03/30/19 10:35 Dose: 10 ml Sodium Chloride (Saline Flush) 10 ml FLUSH ONETIME PRN PRN Reason: PER RADIOLOGY PROTOCOL Succinylcholine Chloride (Quelicin) Confirm Administered Dose 200 mg .ROUTE .STK -MED ONE Stop: 03/08/19 12:18 Succinylcholine Chloride (Quelicin) Confirm Administered Dose 200 mg .ROUTE .SPOOTNIC.COMMED ONE Stop: 03/10/19 07:33 - Exam Quality Assessment: Supplemental Oxygen General: Alert, Cooperative, No Acute Distress HEENT: Pupils Equal Lungs: Normal Respiratory Effort, Decreased Breath Sounds (both bases to mid lung ), Crackles (few right lung base). No: Wheezing Cardiovascular: Regular Rhythm, Tachycardia GI/Abdominal Exam: Normal Bowel Sounds, Soft, No Distention, Tender Extremities: Pedal Edema (mild edema both feet ). No: Increased Warmth Skin: Warm, Dry Psy/Mental Status: Alert, Normal Affect - Problem List & Annotations (1) Small bowel obstruction due to adhesions SNOMED Code(s): 074092557 Code(s): K56.50 - INTESTNL ADHESIONS, UNSP TO PARTIAL VERSUS COMPLETE OBST Status: Acute Current Visit: Yes (2) Acute kidney injury SNOMED Code(s): 21225047, 73275647 Code(s): N17.9 - ACUTE KIDNEY FAILURE, UNSPECIFIED Status: Acute Current Visit: Yes (3) Schizophrenia SNOMED Code(s): 36804229 Code(s): F20.9 - SCHIZOPHRENIA, UNSPECIFIED Status: Chronic Current Visit : No Qualifiers: Schizophrenia type: unspecified Qualified Code(s): F20.9 - Schizophrenia, unspecified (4) Hypothyroid SNOMED Code(s): 85175778 Code(s): E03.9 - HYPOTHYROIDISM, UNSPECIFIED Status: Chronic Current Visit: No Qualifiers: Hypothyroidism type: acquired Qualified Code(s): E03.9 - Hypothyroidism, unspecified (5) HTN (hypertension) SNOMED Code(s): 01670133 Code(s): I10 - ESSENTIAL (PRIMARY) HYPERTENSION Status: Chronic Current Visit: No Qualifiers: Hypertension type: essential hypertension Qualified Code(s): I10 - Essential (primary) hypertension - Problem List Review Problem List Initiated/Reviewed/Updated: Yes - My Orders Last 24 Hours: My Active Orders 04/04/19 09:50 CXR [Chest 1V Frontal] [CR] Routine 04/04/19 11:00 Insulin Lispro [HumaLOG] See Protocol SUBCUT QIDACANDBED 04/05/19 05:00 BASIC METABOLIC PANEL,BMP [CHEM] Timed CBC W/O DIFF,HEMOGRAM [HEME] Timed (1) - Plan Plan:: ASSESSMENT AND PLAN - Acute respiratory failure with hypoxia and hypercapnia - extubated one week ago following an episode of aspiration pneumonitis and may be developing worsening pneumonitis after probable aspiration at the end of last week. Increasing oxygen requirements and weak cough. Chest x-ray shows right-sided infiltrate and effusion which are worse compared to 5 days ago. Antibiotics were discontinued yesterday. -Supplement oxygen -Vigorous pulmonary toilet -Supplement oxygen as needed -Antibiotics and steroids if respiratory status worsens Diarrhea - empiric precautions have been placed. -Clostridium difficile testing Small bowel obstruction with pneumatosis - status post emergent laparotomy with small bowel resection and right colectomy 03/08. -Planning to discontinue TPN -Soft low residue diet -Pain control Type 2 diabetes mellitus - sugars have been extremely well controlled and TPN will be discontinued. -Continue glucometers 4 times daily -Discontinue long-acting insulin -Sliding-scale Hypokalemia - resolved Severe schizophrenia - patient is very debilitated because of his psychiatric illness. No behavior issues so far. -Continue usual oral medications Acute kidney injury - resolved -Continue to closely monitor urine output and renal function Maintenance issues - - DVT prophylaxis - mechanical - GI prophylaxis - oral H2 holden - Nutrition - soft with low residual Disposition - anticipate discharge home versus more likely the correction. the patient's hospital stay has been greatly prolonged by multiple unforeseen complications including prolonged return of bowel function postoperatively, recurrent aspirations leading to respiratory failure and reintubation. Farhan Nj M.D.
[2019-04-04] MEDS: LORazepam 1 MG Tab PO SCH ×2 (10:14→20:21)
[2019-04-04] MEDS: Insulin Lispro 100 Unit/ML 3 ML KwikPen SUBCUT SCH ×3 (12:26→22:12)
--- NOTE | 2019-04-04 13:12 | CR ---
Chest 1V Frontal: 04/04/2019 9:57 AM INDICATION: hypoxia COMPARISON: 03/30/2019. TECHNIQUE: Single AP view of the chest was obtained. FINDINGS: Chronic interstitial prominence and emphysematous changes are present. Persistent right-sided pleural effusion and patchy right-sided airspace opacities which likely relate to infection. Cardiomediastinal silhouette is mildly enlarged but stable in size and contour. No acute osseous abnormality. Right-sided PICC again identified, with its tip in the region of the right atrium. IMPRESSION: Patchy right right-sided airspace disease likely reflects multifocal pneumonia. Small to moderate-sized right-sided pleural effusion remains present. Right-sided PICC remains present.
[2019-04-04] MEDS: CLOZAPINE 100 MG PO SCH (20:22)
[2019-04-04] MEDS: Divalproex Sodium Delayed-Release 250 MG Tab.CR PO SCH (20:22)
[2019-04-04] MEDS: Latanoprost 0.005% Ophth Soln 2.5 ML Bottle EYEBOTH SCH (22:11)
[2019-04-05] MEDS: Albuterol 0.083% 2.5 MG/3 ML Neb Soln NEB PRN (04:43)
[2019-04-05] MEDS: Nystatin Topical Powder 15 GM Bottle TOP SCH ×4 (06:13→22:33)
[2019-04-05] MEDS: Sodium Chloride 5% Ophth Soln 15 ML Bottle EYEBOTH SCH ×4 (06:13→22:33)
[2019-04-05] MEDS: Albuterol/Ipratropium 3.0-0.5 MG/3 ML Neb Soln INH SCH ×4 (07:00→22:37)
[2019-04-05] MEDS: Insulin Lispro 100 Unit/ML 3 ML KwikPen SUBCUT SCH (07:42)
[2019-04-05] MEDS: Levothyroxine 88 MCG Tab PO SCH (07:43)
[2019-04-05] MEDS: LORazepam 1 MG Tab PO SCH ×2 (08:50→22:37)
[2019-04-05] MEDS: Docusate Sodium 100 MG Cap PO SCH ×2 (08:51→22:29)
[2019-04-05] MEDS: Doxazosin 4 MG Tab PO SCH (08:51)
[2019-04-05] MEDS: Lactobacillus Rhamnosus GG (Probiotic) Cap PO SCH ×2 (08:51→22:30)
[2019-04-05] MEDS: Magnesium Oxide 400 MG Tab PO SCH ×2 (08:52→22:31)
[2019-04-05] MEDS: SCOPOLAMINE PATCH CHECK TOP SCH (08:52)
[2019-04-05] MEDS: Atenolol 50 MG Tab PO SCH (08:52)
[2019-04-05] MEDS: Famotidine 20 MG Tab PO SCH ×2 (08:53→22:32)
[2019-04-05] MEDS: Haloperidol 5 MG Tab PO SCH ×2 (08:53→22:31)
--- NOTE | 2019-04-05 10:02 | PCM.PN ---
- General Info Date of Service: 04/05/19 Subjective Update: There were no acute events overnight. Patient required minimal supplemental oxygen overnight but had some difficulty after 4 AM this morning. Responded well to a nebulizer and then sitting up. Back down to minimal supplemental oxygen. Continues to complain of shortness of breath as well as abdominal pain. Abdominal pain today is on the right side. Diarrhea has resolved and he is having formed bowel movements now. White blood cell count is trending down. He has not had any fevers. Functional Status: Reports: Pain Controlled, Tolerating Diet - Review of Systems General: Denies: Fever Pulmonary: Reports: Shortness of Breath Gastrointestinal: Reports: Abdominal Pain. Denies: Diarrhea - Patient Data Vitals - Most Recent: Last Vital Signs Temp 37.2 C 04/05/19 07:00 Pulse 109 H 04/05/19 08:52 Resp 20 04/05/19 07:00 BP 121/55 L 04/05/19 08:52 Pulse Ox 92 L 04/05/19 07:13 Weight - Most Recent: 71.7 kg I&O - Last 24 Hours: Intake & Output 04/04/19 04/05/19 04/05/19 22:59 06:59 14:59 Intake Total 750 640 Balance 750 640 Lab Results Last 24 Hours: Laboratory Results - last 24 hr 03/20/19 04/05/19 04/05/19 Range/Units 08:10 04:00 04:00 WBC 14.7 H (4.5-11.0) K/uL RBC 3.11 L (4.30-5.90) M/uL Hgb 8.9 L (12.0-15.0) g/dL Hct 28.8 L (40.0-54.0) % MCV 93 (80-98) fL MCH 29 (27-31) pg MCHC 31 L (32-36) % Plt Count 231 (150-400) K/uL Sodium 139 L (140-148) mmol/L Potassium 4.8 (3.6-5.2) mmol/L Chloride 103 (100-108) mmol/L Carbon Dioxide 28 (21-32) mmol/L Anion Gap 12.8 (5.0-14.0) mmol/L BUN 29 H (7-18) mg/dL Creatinine 1.0 (0.8-1.3) mg/dL Est Cr Clr Drug Dosing 67.42 mL/min Estimated GFR (MDRD) > 60 (>60) Glucose 96 (74-106) mg/dL Calcium 8.2 L (8.5-10.1) mg/dL Crossmatch See Detail Med Orders - Current: Current Medications Albuterol (Proventil Neb Soln) 2.5 mg NEB Q4H PRN PRN Reason: Shortness Of Breath/wheezing Last Admin: 04/05/19 04:43 Dose: 2.5 mg Albuterol/Ipratropium (Duoneb 3.0-0.5 Mg/3 Ml) 3 ml INH QIDRT [facility] Last Admin: 04/05/19 07:00 Dose: 3 ml Atenolol (Tenormin) 100 mg PO DAILY [facility] Last Admin: 04/05/19 08:52 Dose: 100 mg Dextrose (Glutose 15) 15 gm PO ASDIRECTED PRN PRN Reason: HYPOGLYCEMIA Dextrose/Water (Dextrose 50% In Water) 50 ml IVPUSH ASDIRECTED PRN PRN Reason: HYPOGLYCEMIA Dimethicone/Zinc Oxide (Rash Relief-Zinc Oxide [place]) 1 gm TOP ASDIRECTED PRN PRN Reason: Rash Last Admin: 04/05/19 04:44 Dose: 1 applic Diphenhydramine HCl (Benadryl) 25 mg IVPUSH Q4H PRN PRN Reason: Itching Last Admin: 04/01/19 01:49 Dose: 25 mg Divalproex Sodium (Divalproex Sodium) 1,500 mg PO BEDTIME [facility] Last Admin: 04/04/19 20:22 Dose: 1,500 mg Docusate Sodium (Colace) 100 mg PO BID [facility] Last Admin: 04/05/19 08:51 Dose: 100 mg Doxazosin Mesylate (Cardura) 4 mg PO DAILY [facility] Last Admin: 04/05/19 08:51 Dose: 4 mg Famotidine (Pepcid) 40 mg PO BID [facility] Last Admin: 04/05/19 08:53 Dose: 40 mg Glucagon (Glucagen) 1 mg IM ASDIRECTED PRN PRN Reason: HYPOGLYCEMIA Haloperidol (Haldol) 10 mg PO BID [facility] Last Admin: 04/05/19 08:53 Dose: 10 mg Haloperidol Lactate (Haldol) 2 mg IVPUSH Q4H PRN PRN Reason: Agitation Last Admin: 04/02/19 05:33 Dose: 2 mg Heparin Sodium (Porcine) (Heparin Lock Flush 100 Units/Ml) 500 units FLUSH ASDIRECTED PRN PRN Reason: Keep Vein Open Last Admin: 03/31/19 00:00 Dose: 500 units Lactobacillus Rhamnosus (Culturelle) 1 cap PO BID [facility] Last Admin: 04/05/19 08:51 Dose: 1 cap Latanoprost (Xalatan 0.005% Ophth Soln) 0 ml EYEBOTH BEDTIME [facility] Last Admin: 04/04/19 22:11 Dose: 1 drop Levothyroxine Sodium (Synthroid) 88 mcg PO ACBREAKFAST [facility] Last Admin: 04/05/19 07:43 Dose: 88 mcg Lorazepam (Ativan) 1 mg IVPUSH Q1H PRN PRN Reason: Anxiety Last Admin: 04/03/19 00:50 Dose: 1 mg Lorazepam (Ativan) 1 mg PO BID [facility] Last Admin: 04/05/19 08:50 Dose: 1 mg Magnesium Oxide (Magnesium Oxide) 400 mg PO BID [facility] Last Admin: 04/05/19 08:52 Dose: 400 mg Scopolamine Patch (Check) 1 each TOP DAILY [facility] Last Admin: 04/05/19 08:52 Dose: Not Given Clozapine 100mg (Ptom) 0 mg PO BEDTIME [facility] Last Admin: 04/04/19 20:22 Dose: 450 mg Nystatin (Nystop) 0 gm TOP QID [facility] Last Admin: 04/05/19 06:13 Dose: 1 applic Ondansetron HCl (Zofran) 4 mg IVPUSH Q4H PRN PRN Reason: Nausea/Vomiting Last Admin: 03/18/19 17:31 Dose: 4 mg Senna/Docusate Sodium (Senna Plus) 1 tab PO DAILY [facility] Last Admin: 04/05/19 08:53 Dose: Not Given Sodium Chloride (Joseph 128 5% Ophth Soln) 0 ml EYEBOTH QID [facility] Last Admin: 04/05/19 06:13 Dose: 1 ea Sodium Chloride (Sodium Chloride 0.9%) 3 ml INH ASDIRECTED PRN PRN Reason: mix with racepinephrine neb Last Admin: 03/28/19 00:35 Dose: 3 ml Zinc Acetate/Diphenhydramine (Banophen Anti-Itch 2% Crm) 0 gm TOP QID PRN PRN Reason: Perineal Comfort Measure Discontinued Medications Acetylcysteine (Mucomyst 20%) 400 mg INH BIDRT [facility] Last Admin: 03/12/19 07:48 Dose: 200 mg Acetylcysteine (Mucomyst 20%) 200 mg INH BIDRT [facility] Stop: 03/12/19 23:59 Last Admin: 03/12/19 20:44 Dose: 200 mg Acetylcysteine (Mucomyst 20%) 200 mg NEB BIDRT [facility] Last Admin: 03/27/19 07:06 Dose: 200 mg Atropine Sulfate (Atropine 1%) 0 ml SL BID [facility] Last Admin: 03/29/19 09:06 Dose: 4 drop Bisacodyl (Dulcolax) 10 mg PO BID [facility] Last Admin: 03/17/19 20:35 Dose: Not Given Bisacodyl (Dulcolax) 10 mg RECTAL ONETIME ONE Stop: 03/17/19 17:01 Last Admin: 03/17/19 17:10 Dose: 10 mg Bupivacaine HCl (Marcaine 0.5%) Confirm Administered Dose 50 ml .ROUTE .STK-MED ONE Stop: 03/10/19 06:23 Bupivacaine HCl (Marcaine 0.5%) Confirm Administered Dose 50 ml .ROUTE .STK-MED ONE Stop: 03/11/19 07:19 Last Admin: 03/11/19 07:28 Dose: 15 ml Ropivacaine 36 ml/Dexamethasone 8 mg/Epinephrine HCl 0.4 mg/ Sodium Chloride 41.6 ml 0 ml NERVRT ASDIRECTED [facility] Last Admin: 03/08/19 15:05 Dose: 80 syringe Ropivacaine 36 ml/Dexamethasone 8 mg/Epinephrine HCl 0.4 mg/ Sodium Chloride 41.6 ml 0 ml NERVRT ASDIRECTED [facility] Last Admin: 03/11/19 07:41 Dose: 80 syringe Dexamethasone (Dexamethasone) Confirm Administered Dose 4 mg .ROUTE .STK-MED ONE Stop: 03/08/19 12:18 Dimethicone/Zinc Oxide (Rash Relief-Zinc Oxide [place]) 0 gm TOP ASDIRECTED PRN PRN Reason: Perineal Comfort Measure Last Admin: 03/29/19 15:40 Dose: 6 spray Diphenhydramine HCl (Benadryl) 25 mg IVPUSH Q6H PRN PRN Reason: Itching Diphenhydramine HCl (Benadryl) 25 mg PO Q6H PRN PRN Reason: Itching Fentanyl (Sublimaze) Confirm Administered Dose 250 mcg .ROUTE .STK-MED ONE Stop: 03/08/19 12:19 Furosemide (Lasix) 20 mg IVPUSH ONETIME ONE Stop: 03/09/19 21:56 Last Admin: 03/09/19 22:10 Dose: 20 mg Furosemide (Lasix) Confirm Administered Dose 20 mg .ROUTE .STK-MED ONE Stop: 03/09/19 22:05 Last Admin: 03/09/19 22:10 Dose: Not Given Furosemide (Lasix) 20 mg IVPUSH ONETIME ONE Stop: 03/10/19 06:33 Last Admin: 03/10/19 07:20 Dose: 20 mg Furosemide (Lasix) 20 mg IVPUSH ONETIME ONE Stop: 03/12/19 18:01 Last Admin: 03/12/19 17:43 Dose: 20 mg Furosemide (Lasix) 20 mg IVPUSH ONETIME ONE Stop: 03/12/19 07:31 Last Admin: 03/12/19 07:44 Dose: 20 mg Furosemide (Lasix) 10 mg IVPUSH Q12H [facility] Stop: 03/13/19 21:01 Last Admin: 03/13/19 20:29 Dose: 10 mg Furosemide (Lasix) 20 mg IVPUSH NOW ONE Stop: 03/15/19 11:31 Last Admin: 03/15/19 11:38 Dose: 20 mg Furosemide (Lasix) 20 mg IVPUSH ONETIME ONE Stop: 03/16/19 13:31 Last Admin: 03/16/19 14:18 Dose: 20 mg Furosemide (Lasix) 20 mg IVPUSH NOW ONE Stop: 03/17/19 09:16 Last Admin: 03/17/19 09:47 Dose: 20 mg Furosemide (Lasix) 20 mg IVPUSH Q12H [facility] Stop: 03/22/19 21:31 Last Admin: 03/22/19 22:10 Dose: 20 mg Furosemide (Lasix) 20 mg IVPUSH Q12H [facility] Stop: 03/23/19 22:01 Last Admin: 03/23/19 22:47 Dose: 20 mg Furosemide (Lasix) 20 mg IVPUSH Q8H [facility] Stop: 03/25/19 02:01 Last Admin: 03/25/19 02:11 Dose: 20 mg Furosemide (Lasix) 20 mg IVPUSH Q12H [facility] Last Admin: 03/25/19 21:32 Dose: 20 mg Furosemide (Lasix) 20 mg IVPUSH Q8H [facility] Last Admin: 03/28/19 09:14 Dose: 20 mg Furosemide (Lasix) 20 mg IVPUSH Q12H [facility] Last Admin: 03/28/19 21:46 Dose: 20 mg Furosemide (Lasix) 20 mg IVPUSH ONETIME ONE Stop: 04/03/19 17:42 Last Admin: 04/03/19 18:14 Dose: 20 mg Glycopyrrolate (Robinul) Confirm Administered Dose 1 mg .ROUTE .STK-MED ONE Stop: 03/08/19 12:18 Haloperidol Lactate (Haldol) 5 mg IVPUSH BID [facility] Last Admin: 03/09/19 09:06 Dose: 5 mg Haloperidol Lactate (Haldol) 2.5 mg IVPUSH BID [facility] Last Admin: 03/31/19 08:37 Dose: 2.5 mg Heparin Sodium (Porcine) (Heparin Sodium) Confirm Administered Dose 5,000 units .ROUTE .STK-MED ONE Stop: 03/10/19 07:04 Last Admin: 03/10/19 07:57 Dose: Not Given Heparin Sodium (Porcine) (Heparin Lock Flush 100 Units/Ml) Confirm Administered Dose 1,000 units .ROUTE .STK-MED ONE Stop: 03/11/19 07:32 Last Admin: 03/11/19 08:31 Dose: Not Given Heparin Sodium (Porcine) (Heparin Sodium) Confirm Administered Dose 5,000 units .ROUTE .STK-MED ONE Stop: 03/18/19 23:03 Last Admin: 03/19/19 02:36 Dose: Not Given Hydromorphone HCl (Dilaudid [employer] 15 Mg In Ns 30 Ml) 0 mg IV ASDIRECTED PRN; Protocol PRN Reason: PAIN Last Admin: 03/16/19 16:43 Dose: 15 mg Sodium Chloride (Normal Saline) 1,000 mls @ 1,000 mls/hr IV ASDIRECTED [facility] Last Admin: 03/08/19 10:02 Dose: 1,000 mls/hr Ampicillin Sodium/Sulbactam (Sodium 1.5 gm/ Sodium Chloride) 50 mls @ 100 mls/ hr IV Q6H [facility] Last Admin: 03/08/19 13:30 Dose: 100 mls/hr Aztreonam 1 gm/ Sodium (Chloride) 50 mls @ 100 mls/hr IV Q12H [facility] Last Admin: 03/08/19 13:30 Dose: 100 mls/hr Lactated Ringer's (Ringers, Lactated) 1,000 mls @ 150 mls/hr IV ASDIRECTED [facility] Last Admin: 03/08/19 13:31 Dose: 150 mls/hr Lactated Ringer's (Ringers, Lactated) Confirm Administered Dose 1,000 mls @ as directed .ROUTE .K-MED ONE Stop: 03/08/19 15:16 Lactated Ringer's (Ringers, Lactated) 1,000 mls @ 100 mls/hr IV ASDIRECTED [facility] Last Admin: 03/09/19 03:26 Dose: 100 mls/hr Dextrose/Lactated Ringer's (Dextrose 5%-Lactated Ringers) 1,000 mls @ 100 mls/ hr IV ASDIRECTED [facility] Stop: 03/12/19 11:59 Last Admin: 03/11/19 23:35 Dose: 100 mls/hr Ampicillin Sodium/Sulbactam (Sodium 3 gm/ Sodium Chloride) 100 mls @ 200 mls/ hr IV Q6H [facility] Last Admin: 03/13/19 05:19 Dose: 200 mls/hr Aztreonam 1 gm/ Sodium (Chloride) 50 mls @ 100 mls/hr IV Q8H [facility] Last Admin: 03/13/19 04:23 Dose: 100 mls/hr Valproic Acid 500 mg/ Sodium (Chloride) 55 mls @ 55 mls/hr IV Q8H [facility] Last Admin: 03/31/19 04:58 Dose: 55 mls/hr Potassium Chloride 20 meq/Lidocaine HCl 2 ml/ Sodium Chloride 112 mls @ 56 mls/ hr IV Q2H [facility] Stop: 03/09/19 15:59 Last Admin: 03/09/19 17:30 Dose: 56 mls/hr Lactated Ringer's (Ringers, Lactated) 750 mls @ 750 mls/hr IV BOLUS ONE Stop: 03/09/19 16:25 Last Admin: 03/09/19 15:53 Dose: 750 mls/hr Lactated Ringer's (Ringers, Lactated) 750 mls @ 999 mls/hr IV BOLUS ONE Stop: 03/09/19 21:15 Last Admin: 03/09/19 21:08 Dose: 999 mls/hr Heparin Sodium (Porcine) 5,000 (units/ Sodium Chloride) 501 mls @ 5 mls/hr IV ASDIRECTED [facility] Last Admin: 03/12/19 13:58 Dose: 5 mls/hr Propofol (Diprivan 100 Ml) 100 mls @ 2.191 mls/hr IV TITRATE [facility]; Protocol Last Titration: 03/15/19 07:18 Dose: 0 mcg/kg/min, 0 mls/hr Linezolid 600 mg/ Premix 300 mls @ 300 mls/hr IV Q12H [facility] Last Admin: 03/11/19 21:53 Dose: 300 mls/hr Potassium Chloride 20 meq/Lidocaine HCl 2 ml/ Sodium Chloride 112 mls @ 56 mls/ hr IV Q2H [facility] Stop: 03/10/19 16:29 Last Admin: 03/10/19 16:07 Dose: 56 mls/hr Potassium Chloride 20 meq/ (Premix) 0 mls @ 50 mls/hr IV Q2H [facility] Stop: 03/11/19 07:28 Last Admin: 03/11/19 07:32 Dose: 50 mls/hr Magnesium Sulfate 2 gm/ Premix 50 mls @ 25 mls/hr IV Q6H [facility] Last Admin: 03/12/19 04:27 Dose: 25 mls/hr Potassium Phosphate 20 mmole/ (Sodium Chloride) 256.6667 mls @ 85 mls/hr IV Q3H [facility] Stop: 03/11/19 17:59 Last Admin: 03/11/19 14:42 Dose: 85 mls/hr Multivitamins/Minerals 10 ml/Chromium/Copper/Manganese/Seleni/Zn 1 ml/ Amino Ac/ Electrol/Dextrose/Calcium 1,011 mls @ 82 mls/hr IV .BY DURATION [facility] Last Admin: 03/13/19 12:34 Dose: 82 mls/hr Amino Ac/Electrol/Dextrose/Calcium (Clinimix E 15) 1,000 mls @ 82 mls/hr IV .BY DURATION [facility] Last Admin: 03/14/19 01:20 Dose: 82 mls/hr Sodium Chloride (Normal Saline) 1,000 mls @ 20 mls/hr IV ASDIRECTED [facility] Last Admin: 03/13/19 22:58 Dose: 20 mls/hr Potassium Phosphate 20 mmole/ (Sodium Chloride) 256.6667 mls @ 85.556 mls/hr IV Q3H [facility] Stop: 03/12/19 16:59 Last Admin: 03/12/19 14:49 Dose: 85.556 mls/hr Potassium Chloride 20 meq/ (Premix) 100 mls @ 50 mls/hr IV ONETIME ONE Stop: 03/13/19 10:59 Last Admin: 03/13/19 09:29 Dose: 50 mls/hr Potassium Phosphate 30 mmole/ (Sodium Chloride) 110 mls @ 30 mls/hr IV ONETIME ONE Stop: 03/13/19 14:39 Last Admin: 03/13/19 12:14 Dose: 30 mls/hr Linezolid 600 mg/ Premix 300 mls @ 300 mls/hr IV Q12H [facility] Last Admin: 03/20/19 09:52 Dose: 300 mls/hr Magnesium Sulfate 2 gm/ Premix 50 mls @ 25 mls/hr IV Q6H [facility] Stop: 03/16/19 03:59 Last Admin: 03/16/19 01:59 Dose: 25 mls/hr Azithromycin 250 mg/ Sodium (Chloride) 150 mls @ 150 mls/hr IV Q12H [facility] Azithromycin 250 mg/ Sodium (Chloride) 150 mls @ 150 mls/hr IV Q24H [facility] Last Admin: 03/17/19 11:28 Dose: 150 mls/hr Multivitamins/Minerals 10 ml/Chromium/Copper/Manganese/Seleni/Zn 1 ml/ Amino Ac/ Electrol/Dextrose/Calcium 1,011 mls @ 82 mls/hr IV .BY DURATION [facility] Stop: 03/18/19 14:59 Last Admin: 03/17/19 14:26 Dose: 82 mls/hr Amino Ac/Electrol/Dextrose/Calcium (Clinimix E 15) 1,000 mls @ 82 mls/hr IV .BY DURATION [facility] Stop: 03/18/19 14:59 Last Admin: 03/18/19 03:38 Dose: 82 mls/hr Multivitamins/Minerals 10 ml/Chromium/Copper/Manganese/Seleni/Zn 1 ml/ Amino Ac/ Electrol/Dextrose/Calcium 1,011 mls @ 80 mls/hr IV .BY DURATION [facility] Last Admin: 03/18/19 16:05 Dose: 40 mls/hr Amino Ac/Electrol/Dextrose/Calcium (Clinimix E 12/08) 1,000 mls @ 40 mls/hr IV .BY DURATION [facility] Piperacillin Sod/Tazobactam (Sod 3.375 gm/ Sodium Chloride) 50 mls @ 100 mls/ hr IV Q6H [facility] Last Admin: 03/19/19 04:17 Dose: 100 mls/hr Sodium Chloride (Normal Saline) Confirm Administered Dose 50 mls @ as directed .ROUTE .STK-MED ONE Stop: 03/18/19 21:35 Last Admin: 03/18/19 21:40 Dose: Not Given Propofol (Diprivan 100 Ml) Confirm Administered Dose 100 mls @ as directed .ROUTE .STK-MED ONE Stop: 03/18/19 23:04 Last Admin: 03/19/19 01:04 Dose: Not Given Propofol (Diprivan 100 Ml) 100 mls @ 2.195 mls/hr IV TITRATE [facility]; Protocol Last Titration: 03/27/19 07:00 Dose: 0 mcg/kg/min, 0 mls/hr Heparin Sodium (Porcine) 5,000 (units/ Sodium Chloride) 501 mls @ 0.1 mls/hr IV ASDIRECTED [facility] Last Admin: 03/27/19 15:35 Dose: 1 units/hr, 0.1 mls/hr Sodium Chloride (Normal Saline) 500 mls @ 999 mls/hr IV .BOLUS ONE Stop: 03/19/19 00:00 Last Admin: 03/19/19 00:00 Dose: 999 mls/hr Sodium Chloride (Normal Saline) 1,000 mls @ 20 mls/hr IV ASDIRECTED [facility] Last Admin: 03/30/19 23:53 Dose: 20 mls/hr Sodium Chloride (Normal Saline) 100 mls @ 4 mls/sec IV ASDIRECTED [facility] Stop: 03/19/19 10:00 Last Admin: 03/19/19 07:45 Dose: 4 mls/sec Multivitamins/Minerals 10 ml/Chromium/Copper/Manganese/Seleni/Zn 1 ml/ Amino Ac/ Electrol/Dextrose/Calcium 1,011 mls @ 80 mls/hr IV .BY DURATION [facility] Stop: 03/19/19 20:00 Amino Ac/Electrol/Dextrose/Calcium (Clinimix E 5/15) 1,000 mls @ 80 mls/hr IV .BY DURATION [facility] Stop: 03/19/19 20:00 Last Admin: 03/19/19 08:12 Dose: 80 mls/hr Piperacillin/Tazobactam/ (Dextrose 3.375 gm/ Premix) 50 mls @ 100 mls/hr IV Q6H [facility] Last Admin: 03/25/19 09:29 Dose: 100 mls/hr Multivitamins/Minerals 10 ml/Chromium/Copper/Manganese/Seleni/Zn 1 ml/ Amino Ac/ Electrol/Dextrose/Calcium 1,011 mls @ 82 mls/hr IV .BY DURATION [facility] Stop: 03/23/19 20:00 Last Admin: 03/22/19 21:45 Dose: 82 mls/hr Amino Ac/Electrol/Dextrose/Calcium (Clinimix E 5/15) 1,000 mls @ 82 mls/hr IV .BY DURATION [facility] Stop: 03/23/19 20:00 Last Admin: 03/23/19 11:17 Dose: Not Given Albumin Human (Albumin 25%) 25 gm in 100 mls @ 25 mls/hr IV Q24H [facility] Stop: 03/23/19 11:59 Last Admin: 03/23/19 08:20 Dose: 25 mls/hr Albumin Human (Albumin 25%) 25 gm in 100 mls @ 25 mls/hr IV Q24H [facility] Stop: 03/23/19 15:59 Last Admin: 03/23/19 11:22 Dose: 25 mls/hr Azithromycin 250 mg/ Sodium (Chloride) 150 mls @ 150 mls/hr IV Q24H [facility] Last Admin: 03/24/19 11:55 Dose: 150 mls/hr Potassium Chloride 20 meq/ (Premix) 100 mls @ 50 mls/hr IV ONETIME ONE Stop: 03/21/19 10:59 Last Admin: 03/21/19 09:29 Dose: 50 mls/hr Potassium Chloride 40 meq/ (Premix) 100 mls @ 25 mls/hr IV ONETIME ONE Stop: 03/22/19 13:59 Last Admin: 03/22/19 10:01 Dose: 25 mls/hr Magnesium Sulfate 2 gm/ Premix 50 mls @ 25 mls/hr IV Q6H [facility] Stop: 03/26/19 03:59 Last Admin: 03/24/19 08:07 Dose: 25 mls/hr Potassium Chloride 40 meq/ (Premix) 100 mls @ 25 mls/hr IV ONETIME ONE Stop: 03/23/19 13:59 Last Admin: 03/23/19 09:22 Dose: 25 mls/hr Multivitamins/Minerals 10 ml/Chromium/Copper/Manganese/Seleni/Zn 1 ml/ Amino Ac/ Electrol/Dextrose/Calcium 1,011 mls @ 82 mls/hr IV .BY DURATION [facility] Last Admin: 04/02/19 02:05 Dose: 82 mls/hr Amino Ac/Electrol/Dextrose/Calcium (Clinimix E 5/15) 1,000 mls @ 82 mls/hr IV .BY DURATION [facility] Last Admin: 04/01/19 14:27 Dose: 82 mls/hr Potassium Chloride 40 meq/ (Premix) 100 mls @ 25 mls/hr IV ONETIME ONE Stop: 03/24/19 13:59 Last Admin: 03/24/19 09:54 Dose: 25 mls/hr Potassium Chloride 40 meq/ (Premix) 100 mls @ 25 mls/hr IV ONETIME ONE Stop: 03/25/19 13:59 Last Admin: 03/25/19 10:32 Dose: 25 mls/hr Fat Emulsion Intravenous (Intralipid 20%) 100 mls @ 8.3 mls/hr IV Q48H [facility] Last Admin: 03/29/19 15:52 Dose: 8.3 mls/hr Magnesium Sulfate 2 gm/ Premix 50 mls @ 25 mls/hr IV Q6H [facility] Stop: 03/30/19 03:59 Last Admin: 03/30/19 03:14 Dose: 25 mls/hr Meropenem 1 gm/ Sodium (Chloride) 50 mls @ 100 mls/hr IV Q8H [facility] Last Admin: 04/03/19 08:02 Dose: 100 mls/hr Sodium Chloride (Normal Saline) 75 mls @ 3 mls/sec IV ASDIRECTED [facility] Last Admin: 03/30/19 10:36 Dose: 3 mls/sec Sodium Chloride (Normal Saline) 100 mls @ 3 mls/sec IV ONETIME ONE Stop: 03/30/19 10:27 Last Admin: 03/30/19 19:19 Dose: Not Given Magnesium Sulfate 2 gm/ Premix 50 mls @ 25 mls/hr IV Q6H [facility] Stop: 04/02/19 10:00 Last Admin: 04/02/19 09:24 Dose: 25 mls/hr Multivitamins/Minerals 10 ml/Chromium/Copper/Manganese/Seleni/Zn 1 ml/ Amino Ac/ Electrol/Dextrose/Calcium 1,011 mls @ 40 mls/hr IV .BY DURATION [facility] Stop: 04/03/19 13:00 Last Admin: 04/02/19 13:35 Dose: 40 mls/hr Amino Ac/Electrol/Dextrose/Calcium (Clinimix E 5/15) 1,000 mls @ 40 mls/hr IV .BY DURATION [facility] Stop: 04/03/19 13:00 Multivitamins/Minerals 10 ml/Chromium/Copper/Manganese/Seleni/Zn 1 ml/ Amino Ac/ Electrol/Dextrose/Calcium 1,011 mls @ 20 mls/hr IV .BY DURATION [facility] Last Admin: 04/03/19 15:23 Dose: 20 mls/hr Amino Ac/Electrol/Dextrose/Calcium (Clinimix E 5/15) 1,000 mls @ 20 mls/hr IV .BY DURATION [facility] Magnesium Sulfate 2 gm/ Premix 50 mls @ 25 mls/hr IV ONETIME ONE Stop: 04/03/19 11:59 Last Admin: 04/03/19 10:05 Dose: 25 mls/hr Insulin Glargine (Lantus Solostar) 10 units SUBCUT BID [facility] Last Admin: 03/16/19 09:27 Dose: 10 unit Insulin Glargine (Lantus Solostar) 14 units SUBCUT BID [facility] Last Admin: 03/18/19 09:06 Dose: 14 units Insulin Glargine (Lantus Solostar) 7 units SUBCUT BID [facility] Stop: 03/18/19 21:01 Last Admin: 03/18/19 21:25 Dose: Not Given Insulin Glargine (Lantus Solostar) 12 units SUBCUT BID [facility] Last Admin: 04/02/19 08:24 Dose: 12 units Insulin Glargine (Lantus Solostar) 14 units SUBCUT BID [facility] Last Admin: 04/03/19 08:26 Dose: 14 unit Insulin Glargine (Lantus Solostar) 10 units SUBCUT BID [facility] Last Admin: 04/04/19 10:00 Dose: 10 units Insulin Human Lispro (Humalog) 0 unit SUBCUT Q6H PRN; Protocol PRN Reason: MEDIUM CORRECTIONAL DOSING Last Admin: 03/14/19 17:42 Dose: 7 units Insulin Human Lispro (Humalog) 15 unit SUBCUT ONETIME ONE Stop: 03/14/19 12:05 Last Admin: 03/14/19 12:10 Dose: 15 units Insulin Human Lispro (Humalog) 0 unit SUBCUT ASDIRECTED [facility]; Protocol Last Admin: 04/02/19 08:26 Dose: 3 units Insulin Human Lispro (Humalog) 0 unit SUBCUT ONETIME ONE Stop: 03/15/19 00:16 Last Admin: 03/15/19 00:25 Dose: 12 units Insulin Human Lispro (Humalog) 0 unit SUBCUT QIDACANDBED [facility]; Protocol Last Admin: 04/05/19 07:42 Dose: Not Given Iohexol (Omnipaque-300) 100 ml IVPUSH . DIRECTED [facility] Iopamidol (Isovue-370 (76%)) 100 ml IV . DIRECTED [facility] Stop: 03/19/19 10:00 Last Admin: 03/19/19 07:45 Dose: 100 ml Iopamidol (Isovue-300 (61%)) 100 ml IV . DIRECTED PRN PRN Reason: RADIOLOGY EXAM Last Admin: 03/30/19 10:36 Dose: 100 ml Levothyroxine Sodium (Synthroid) 100 mcg IVPUSH DAILY [facility] Last Admin: 03/31/19 08:33 Dose: 100 mcg Lidocaine HCl (Xylocaine-Mpf 1%) 5 ml INJECT ONETIME ONE Stop: 03/11/19 05:30 Last Admin: 03/11/19 05:39 Dose: 2 ml Lidocaine/Epinephrine (Xylocaine 1% With Epinephrine 1:100,000) Confirm Administered Dose 50 ml .ROUTE .STK-MED ONE Stop: 03/10/19 06:23 Lidocaine/Epinephrine (Xylocaine 1% With Epinephrine 1:100,000) Confirm Administered Dose 50 ml .ROUTE .STK-MED ONE Stop: 03/11/19 07:19 Last Admin: 03/11/19 07:28 Dose: 15 ml Linezolid (Zyvox) 600 mg IRR .STK-MED ONE Stop: 03/11/19 07:39 Last Admin: 03/11/19 07:38 Dose: 600 mg Lorazepam (Ativan) 0.5 mg IVPUSH BID [facility] Last Admin: 03/09/19 09:09 Dose: 0.5 mg Lorazepam (Ativan) 0.5 mg IVPUSH Q4H PRN PRN Reason: Anxiety Last Admin: 03/27/19 10:07 Dose: 0.5 mg Lorazepam (Ativan) 0.25 mg IVPUSH BID [facility] Last Admin: 03/10/19 09:09 Dose: 0.25 mg Lorazepam (Ativan) 0.5 mg IVPUSH BID [facility] Last Admin: 03/30/19 21:01 Dose: 0.5 mg Meropenem (Merrem) Confirm Administered Dose 500 mg .ROUTE .STK-MED ONE Stop: 03/08/19 12:05 Last Admin: 03/08/19 14:00 Dose: 500 mg Meropenem (Merrem) Confirm Administered Dose 500 mg .ROUTE .STK-MED ONE Stop: 03/10/19 06:23 Meropenem (Merrem) Confirm Administered Dose 500 mg .ROUTE .STK-MED ONE Stop: 03/11/19 06:45 Last Admin: 03/11/19 07:38 Dose: 500 mg Methylprednisolone Sodium Succinate (Solu-Medrol) 40 mg IVPUSH Q6H [facility] Last Admin: 03/20/19 09:50 Dose: 40 mg Methylprednisolone Sodium Succinate (Solu-Medrol) 40 mg IVPUSH Q6H [facility] Last Admin: 04/01/19 10:25 Dose: 40 mg Methylprednisolone Sodium Succinate (Solu-Medrol) 40 mg IVPUSH Q12H [facility] Last Admin: 04/01/19 21:19 Dose: 40 mg Metoprolol Tartrate (Lopressor) 5 mg IV Q6H [facility] Last Admin: 03/26/19 07:56 Dose: Not Given Metoprolol Tartrate (Lopressor) 2.5 mg IV Q6H [facility] Last Admin: 03/29/19 05:23 Dose: 2.5 mg Metoprolol Tartrate (Lopressor) 5 mg IV Q6H [facility] Last Admin: 03/31/19 04:53 Dose: 5 mg Morphine Sulfate (Morphine) 2 mg IVPUSH Q1H PRN PRN Reason: Other Last Admin: 03/31/19 01:30 Dose: 2 mg Naloxone HCl (Narcan) 0.1 mg IV ASDIRECTED PRN PRN Reason: decreased respiratory rate Neostigmine Methylsulfate (Neostigmine) Confirm Administered Dose 5 mg .ROUTE .STK-MED ONE Stop: 03/08/19 12:18 Non-Formulary Medication (Total Parenteral Nutrition, Central) 1,000 ml .XX .Continue Order [facility] Stop: 03/22/19 12:00 Non-Formulary Medication (Total Parenteral Nutrition, Central) 1,000 ml .XX .Continue Order [facility] Stop: 03/23/19 12:00 Non-Formulary Medication (Total Parenteral Nutrition, Central) 1,000 ml .XX .Continue Order [facility] Stop: 03/24/19 15:00 Non-Formulary Medication (Total Parenteral Nutrition, Central) 1,000 ml .XX .Continue Order [facility] Stop: 03/26/19 12:00 Non-Formulary Medication (Total Parenteral Nutrition, Central) 0 ml IV ASDIRECTED [facility] Stop: 03/31/19 13:01 Non-Formulary Medication (Total Parenteral Nutrition, Central) 1,000 ml .XX .Continue Order [facility] Stop: 04/01/19 10:00 Non-Formulary Medication (Total Parenteral Nutrition, Central) 1,000 ml .XX .Continue Order [facility] Stop: 04/02/19 10:00 Non-Formulary Medication (Total Parenteral Nutrition, Central) 1,000 ml .XX .Continue Order [facility] Stop: 04/03/19 10:00 Non-Formulary Medication (Total Parenteral Nutrition, Central) 1,000 ml .XX .Continue Order [facility] Stop: 04/04/19 10:00 Nystatin (Nystop) 0 gm TOP QID [facility] Last Admin: 03/31/19 11:05 Dose: 1 applic Ondansetron HCl (Zofran) Confirm Administered Dose 4 mg .ROUTE .STK-MED ONE Stop: 03/08/19 12:18 Ondansetron HCl (Zofran) 4 mg IVPUSH Q6H PRN PRN Reason: Nausea/Vomiting Pantoprazole Sodium (Protonix Iv) 40 mg IV Q24H [facility] Last Admin: 03/30/19 17:44 Dose: 40 mg Piperacillin Sod/Tazobactam Sod (Zosyn) Confirm Administered Dose 3.375 gm .ROUTE .STK-MED ONE Stop: 03/18/19 21:34 Last Admin: 03/18/19 21:40 Dose: Not Given Propofol (Diprivan 20 Ml) Confirm Administered Dose 200 mg .ROUTE .STK-MED ONE Stop: 03/08/19 12:18 Propofol (Diprivan 20 Ml) Confirm Administered Dose 200 mg .ROUTE .STK-MED ONE Stop: 03/10/19 07:33 Racepinephrine (S-2 2.25%) 0.5 ml NEB Q2H PRN PRN Reason: Shortness of Breath Last Admin: 03/28/19 00:32 Dose: 0.5 ml Rocuronium [place] (Zemuron) Confirm Administered Dose 50 mg .ROUTE .STK-MED ONE Stop: 03/08/19 12:18 Scopolamine (Transderm-Scop) 1.5 mg TRDERM Q72H [facility] Last Admin: 03/28/19 10:35 Dose: 1.5 mg Sodium Chloride (Saline Flush) 10 ml FLUSH ONETIME ONE Stop: 03/30/19 10:02 Last Admin: 03/30/19 10:35 Dose: 10 ml Sodium Chloride (Saline Flush) 10 ml FLUSH ONETIME PRN PRN Reason: PER RADIOLOGY PROTOCOL Succinylcholine Chloride (Quelicin) Confirm Administered Dose 200 mg .ROUTE .STK -MED ONE Stop: 03/08/19 12:18 Succinylcholine Chloride (Quelicin) Confirm Administered Dose 200 mg .ROUTE .STK -MED ONE Stop: 03/10/19 07:33 - Exam Quality Assessment: Supplemental Oxygen General: Alert, Cooperative, No Acute Distress HEENT: Pupils Equal Lungs: Normal Respiratory Effort, Decreased Breath Sounds (both bases to midlung ) Cardiovascular: Regular Rate, Regular Rhythm GI/Abdominal Exam: Normal Bowel Sounds, Soft, Distended (mild), Tender (mild generalized ) Extremities: No Pedal Edema. No: Increased Warmth Skin: Warm, Dry Psy/Mental Status: Alert. No: Agitated - Problem List & Annotations (1) Small bowel obstruction due to adhesions SNOMED Code(s): 449556425 Code(s): K56.50 - INTESTNL ADHESIONS, UNSP TO PARTIAL VERSUS COMPLETE OBST Status: Acute Current Visit: Yes (2) Acute kidney injury SNOMED Code(s): 09611263, 95420571 Code(s): N17.9 - ACUTE KIDNEY FAILURE, UNSPECIFIED Status: Acute Current Visit: Yes (3) Schizophrenia SNOMED Code(s): 45923117 Code(s): F20.9 - SCHIZOPHRENIA, UNSPECIFIED Status: Chronic Current Visit : No Qualifiers: Schizophrenia type: unspecified Qualified Code(s): F20.9 - Schizophrenia, unspecified (4) Hypothyroid SNOMED Code(s): 94393750 Code(s): E03.9 - HYPOTHYROIDISM, UNSPECIFIED Status: Chronic Current Visit: No Qualifiers: Hypothyroidism type: acquired Qualified Code(s): E03.9 - Hypothyroidism, unspecified (5) HTN (hypertension) SNOMED Code(s): 32079596 Code(s): I10 - ESSENTIAL (PRIMARY) HYPERTENSION Status: Chronic Current Visit: No Qualifiers: Hypertension type: essential hypertension Qualified Code(s): I10 - Essential (primary) hypertension - Problem List Review Problem List Initiated/Reviewed/Updated: Yes - My Orders Last 24 Hours: My Active Orders 04/06/19 05:00 Abdomen 2V AP Flat Upright [CR] DAILY BASIC METABOLIC PANEL,BMP [CHEM] Timed CBC W/O DIFF,HEMOGRAM [HEME] Timed (1) - Plan Plan:: ASSESSMENT AND PLAN - Acute respiratory failure with hypoxia and hypercapnia - this is his third round of difficulty following aspiration. Seems to be getting better at this point but still requiring some supplemental oxygen. Secretions are most prominent early in the morning. No fevers. -Scheduled and as needed nebulizers -Supplement oxygen -Vigorous pulmonary toilet -Supplement oxygen as needed -Antibiotics and steroids if respiratory status worsens Diarrhea - resolved, likely secondary to recent aggressive bowel stimulation -Discontinue precautions Small bowel obstruction with pneumatosis - status post emergent laparotomy with small bowel resection and right colectomy 03/08. He does report some abdominal pain and has mild distention. -Flat and upright x-ray in the morning -Soft low residue diet -Pain control Type 2 diabetes mellitus, TPN induced - sugars are back to normal now that TPN has been discontinued. -Discontinue insulin and Accu-Cheks Hypokalemia - resolved Severe schizophrenia - patient is very debilitated because of his psychiatric illness. No behavior issues so far. -Continue usual oral medications Acute kidney injury - resolved -Continue to closely monitor urine output and renal function Maintenance issues - - DVT prophylaxis - mechanical - GI prophylaxis - oral H2 holden - Nutrition - soft with low residual Disposition - anticipate discharge to the retirement. the patient's hospital stay has been greatly prolonged by multiple unforeseen complications including prolonged return of bowel function postoperatively, recurrent aspirations leading to respiratory failure and reintubation. He should be ready for discharge in the next couple of days barring additional unforeseen complications. Farhan Nj M.D.
[2019-04-05] MEDS: CLOZAPINE 100 MG PO SCH (22:29)
[2019-04-05] MEDS: Divalproex Sodium Delayed-Release 250 MG Tab.CR PO SCH (22:30)
[2019-04-05] MEDS: Latanoprost 0.005% Ophth Soln 2.5 ML Bottle EYEBOTH SCH (22:33)
[2019-04-06] MEDS: Albuterol 0.083% 2.5 MG/3 ML Neb Soln NEB PRN (06:10)
[2019-04-06] MEDS: Sodium Chloride 5% Ophth Soln 15 ML Bottle EYEBOTH SCH ×4 (06:13→21:24)
[2019-04-06] MEDS: Nystatin Topical Powder 15 GM Bottle TOP SCH ×4 (06:13→21:23)
--- NOTE | 2019-04-06 06:52 | CRLCR ---
INDICATION: Abdominal pain COMPARISON: none TECHNIQUE: Two view abdomen. FINDINGS: There are loops of mildly dilated small bowel within the mid abdomen. There is no evidence of edema within the small bowel mucosal folds. Air is noted within a nondilated colon. There is no evidence of free intraperitoneal air or soft tissue mass effect. There are no pathologic calcifications. IMPRESSION: Dilated small bowel loops suggesting partial obstruction. Dictated by Evan Navas MD @ 04/06/2019 6:51:04 AM Dictated by: Evan Navas MD @ 04/06/2019 06:51:11 (Electronically Signed)
[2019-04-06] MEDS: Albuterol/Ipratropium 3.0-0.5 MG/3 ML Neb Soln INH SCH ×4 (07:07→21:22)
[2019-04-06] MEDS: Lactobacillus Rhamnosus GG (Probiotic) Cap PO SCH ×2 (08:23→21:24)
[2019-04-06] MEDS: Docusate Sodium 100 MG Cap PO SCH (08:24)
[2019-04-06] MEDS: Doxazosin 4 MG Tab PO SCH (08:24)
[2019-04-06] MEDS: Magnesium Oxide 400 MG Tab PO SCH ×2 (08:24→21:27)
[2019-04-06] MEDS: Levothyroxine 88 MCG Tab PO SCH (08:24)
[2019-04-06] MEDS: Haloperidol 5 MG Tab PO SCH ×2 (08:25→21:27)
[2019-04-06] MEDS: Famotidine 20 MG Tab PO SCH ×2 (08:25→21:28)
[2019-04-06] MEDS: Atenolol 50 MG Tab PO SCH (08:26)
[2019-04-06] MEDS: LORazepam 1 MG Tab PO SCH ×2 (08:38→21:23)
--- NOTE | 2019-04-06 10:11 | PCM.PN ---
- General Info Date of Service: 04/06/19 Subjective Update: There were no acute events overnight. Patient does continue to require supplemental oxygen but only a small quantity. He feels less short of breath today. He says he does not have any abdominal pain today but is a little tender with palpation. He has continued to have soft bowel movements. He has not had any fevers. White blood cell count is trending down. Functional Status: Reports: Pain Controlled, Tolerating Diet - Review of Systems General: Denies: Fever Gastrointestinal: Reports: Abdominal Pain - Patient Data Vitals - Most Recent: Last Vital Signs Temp 36.3 C 04/06/19 07:31 Pulse 107 H 04/06/19 08:26 Resp 16 04/06/19 07:31 BP 110/51 L 04/06/19 08:26 Pulse Ox 90 L 04/06/19 07:31 Weight - Most Recent: 71.7 kg I&O - Last 24 Hours: Intake & Output 04/05/19 04/06/19 04/06/19 22:59 06:59 14:59 Intake Total 240 Balance 240 Lab Results Last 24 Hours: Laboratory Results - last 24 hr 04/06/19 04/06/19 Range/Units 04:00 04:00 WBC 11.0 (4.5-11.0) K/uL RBC 3.01 L (4.30-5.90) M/uL Hgb 8.4 L (12.0-15.0) g/dL Hct 28.0 L (40.0-54.0) % MCV 93 (80-98) fL MCH 28 (27-31) pg MCHC 30 L (32-36) % Plt Count 214 (150-400) K/uL Sodium 139 L (140-148) mmol/L Potassium 4.6 (3.6-5.2) mmol/L Chloride 104 (100-108) mmol/L Carbon Dioxide 29 (21-32) mmol/L Anion Gap 10.6 (5.0-14.0) mmol/L BUN 22 H (7-18) mg/dL Creatinine 0.9 (0.8-1.3) mg/dL Est Cr Clr Drug Dosing 74.91 mL/min Estimated GFR (MDRD) > 60 (>60) Glucose 98 (74-106) mg/dL Calcium 8.3 L (8.5-10.1) mg/dL Med Orders - Current: Current Medications Albuterol (Proventil Neb Soln) 2.5 mg NEB Q4H PRN PRN Reason: Shortness Of Breath/wheezing Last Admin: 04/06/19 06:10 Dose: 2.5 mg Albuterol/Ipratropium (Duoneb 3.0-0.5 Mg/3 Ml) 3 ml INH QIDRT [facility] Last Admin: 04/06/19 07:07 Dose: 3 ml Atenolol (Tenormin) 100 mg PO DAILY [facility] Last Admin: 04/06/19 08:26 Dose: 100 mg Dimethicone/Zinc Oxide (Rash Relief-Zinc Oxide [place]) 1 gm TOP ASDIRECTED PRN PRN Reason: Rash Last Admin: 04/05/19 04:44 Dose: 1 applic Divalproex Sodium (Divalproex Sodium) 1,500 mg PO BEDTIME [facility] Last Admin: 04/05/19 22:30 Dose: 1,500 mg Doxazosin Mesylate (Cardura) 4 mg PO DAILY [facility] Last Admin: 04/06/19 08:24 Dose: 4 mg Famotidine (Pepcid) 40 mg PO BID [facility] Last Admin: 04/06/19 08:25 Dose: 40 mg Haloperidol (Haldol) 10 mg PO BID [facility] Last Admin: 04/06/19 08:25 Dose: 10 mg Haloperidol Lactate (Haldol) 2 mg IVPUSH Q4H PRN PRN Reason: Agitation Last Admin: 04/02/19 05:33 Dose: 2 mg Heparin Sodium (Porcine) (Heparin Lock Flush 100 Units/Ml) 500 units FLUSH ASDIRECTED PRN PRN Reason: Keep Vein Open Last Admin: 03/31/19 00:00 Dose: 500 units Lactobacillus Rhamnosus (Culturelle) 1 cap PO BID [facility] Last Admin: 04/06/19 08:23 Dose: 1 cap Latanoprost (Xalatan 0.005% Ophth Soln) 0 ml EYEBOTH BEDTIME [facility] Last Admin: 04/05/19 22:33 Dose: 1 drop Levothyroxine Sodium (Synthroid) 88 mcg PO ACBREAKFAST [facility] Last Admin: 04/06/19 08:24 Dose: 88 mcg Lorazepam (Ativan) 1 mg IVPUSH Q1H PRN PRN Reason: Anxiety Last Admin: 04/03/19 00:50 Dose: 1 mg Lorazepam (Ativan) 1 mg PO BID [facility] Last Admin: 04/06/19 08:38 Dose: 1 mg Magnesium Oxide (Magnesium Oxide) 400 mg PO BID [facility] Last Admin: 04/06/19 08:24 Dose: 400 mg Scopolamine Patch (Check) 1 each TOP DAILY [facility] Last Admin: 04/05/19 08:52 Dose: Not Given Clozapine 100mg (Ptom) 0 mg PO BEDTIME [facility] Last Admin: 04/05/19 22:29 Dose: 450 mg Nystatin (Nystop) 0 gm TOP QID [facility] Last Admin: 04/06/19 06:13 Dose: 1 applic Ondansetron HCl (Zofran) 4 mg IVPUSH Q4H PRN PRN Reason: Nausea/Vomiting Last Admin: 03/18/19 17:31 Dose: 4 mg Polyethylene Glycol (Miralax) 17 gm PO DAILY [facility] Senna/Docusate Sodium (Senna Plus) 1 tab PO DAILY [facility] Last Admin: 04/06/19 08:26 Dose: 1 tab Sodium Chloride (Joseph 128 5% Ophth Soln) 0 ml EYEBOTH QID [facility] Last Admin: 04/06/19 06:13 Dose: 1 ea Sodium Chloride (Sodium Chloride 0.9%) 3 ml INH ASDIRECTED PRN PRN Reason: mix with racepinephrine neb Last Admin: 03/28/19 00:35 Dose: 3 ml Zinc Acetate/Diphenhydramine (Banophen Anti-Itch 2% Crm) 0 gm TOP QID PRN PRN Reason: Perineal Comfort Measure Discontinued Medications Acetylcysteine (Mucomyst 20%) 400 mg INH BIDRT [facility] Last Admin: 03/12/19 07:48 Dose: 200 mg Acetylcysteine (Mucomyst 20%) 200 mg INH BIDRT [facility] Stop: 03/12/19 23:59 Last Admin: 03/12/19 20:44 Dose: 200 mg Acetylcysteine (Mucomyst 20%) 200 mg NEB BIDRT [facility] Last Admin: 03/27/19 07:06 Dose: 200 mg Atropine Sulfate (Atropine 1%) 0 ml SL BID [facility] Last Admin: 03/29/19 09:06 Dose: 4 drop Bisacodyl (Dulcolax) 10 mg PO BID [facility] Last Admin: 03/17/19 20:35 Dose: Not Given Bisacodyl (Dulcolax) 10 mg RECTAL ONETIME ONE Stop: 03/17/19 17:01 Last Admin: 03/17/19 17:10 Dose: 10 mg Bupivacaine HCl (Marcaine 0.5%) Confirm Administered Dose 50 ml .ROUTE .STK-MED ONE Stop: 03/10/19 06:23 Bupivacaine HCl (Marcaine 0.5%) Confirm Administered Dose 50 ml .ROUTE .STK-MED ONE Stop: 03/11/19 07:19 Last Admin: 03/11/19 07:28 Dose: 15 ml Ropivacaine 36 ml/Dexamethasone 8 mg/Epinephrine HCl 0.4 mg/ Sodium Chloride 41.6 ml 0 ml NERVRT ASDIRECTED [facility] Last Admin: 03/08/19 15:05 Dose: 80 syringe Ropivacaine 36 ml/Dexamethasone 8 mg/Epinephrine HCl 0.4 mg/ Sodium Chloride 41.6 ml 0 ml NERVRT ASDIRECTED [facility] Last Admin: 03/11/19 07:41 Dose: 80 syringe Dexamethasone (Dexamethasone) Confirm Administered Dose 4 mg .ROUTE .[facility]-MED ONE Stop: 03/08/19 12:18 Dextrose (Glutose 15) 15 gm PO ASDIRECTED PRN PRN Reason: HYPOGLYCEMIA Dextrose/Water (Dextrose 50% In Water) 50 ml IVPUSH ASDIRECTED PRN PRN Reason: HYPOGLYCEMIA Dimethicone/Zinc Oxide (Rash Relief-Zinc Oxide [place]) 0 gm TOP ASDIRECTED PRN PRN Reason: Perineal Comfort Measure Last Admin: 03/29/19 15:40 Dose: 6 spray Diphenhydramine HCl (Benadryl) 25 mg IVPUSH Q6H PRN PRN Reason: Itching Diphenhydramine HCl (Benadryl) 25 mg PO Q6H PRN PRN Reason: Itching Diphenhydramine HCl (Benadryl) 25 mg IVPUSH Q4H PRN PRN Reason: Itching Last Admin: 04/01/19 01:49 Dose: 25 mg Docusate Sodium (Colace) 100 mg PO BID [facility] Last Admin: 04/06/19 08:24 Dose: 100 mg Fentanyl (Sublimaze) Confirm Administered Dose 250 mcg .ROUTE .STK-MED ONE Stop: 03/08/19 12:19 Furosemide (Lasix) 20 mg IVPUSH ONETIME ONE Stop: 03/09/19 21:56 Last Admin: 03/09/19 22:10 Dose: 20 mg Furosemide (Lasix) Confirm Administered Dose 20 mg .ROUTE .STK-MED ONE Stop: 03/09/19 22:05 Last Admin: 03/09/19 22:10 Dose: Not Given Furosemide (Lasix) 20 mg IVPUSH ONETIME ONE Stop: 03/10/19 06:33 Last Admin: 03/10/19 07:20 Dose: 20 mg Furosemide (Lasix) 20 mg IVPUSH ONETIME ONE Stop: 03/12/19 18:01 Last Admin: 03/12/19 17:43 Dose: 20 mg Furosemide (Lasix) 20 mg IVPUSH ONETIME ONE Stop: 03/12/19 07:31 Last Admin: 03/12/19 07:44 Dose: 20 mg Furosemide (Lasix) 10 mg IVPUSH Q12H [facility] Stop: 03/13/19 21:01 Last Admin: 03/13/19 20:29 Dose: 10 mg Furosemide (Lasix) 20 mg IVPUSH NOW ONE Stop: 03/15/19 11:31 Last Admin: 03/15/19 11:38 Dose: 20 mg Furosemide (Lasix) 20 mg IVPUSH ONETIME ONE Stop: 03/16/19 13:31 Last Admin: 03/16/19 14:18 Dose: 20 mg Furosemide (Lasix) 20 mg IVPUSH NOW ONE Stop: 03/17/19 09:16 Last Admin: 03/17/19 09:47 Dose: 20 mg Furosemide (Lasix) 20 mg IVPUSH Q12H [facility] Stop: 03/22/19 21:31 Last Admin: 03/22/19 22:10 Dose: 20 mg Furosemide (Lasix) 20 mg IVPUSH Q12H [facility] Stop: 03/23/19 22:01 Last Admin: 03/23/19 22:47 Dose: 20 mg Furosemide (Lasix) 20 mg IVPUSH Q8H [facility] Stop: 03/25/19 02:01 Last Admin: 03/25/19 02:11 Dose: 20 mg Furosemide (Lasix) 20 mg IVPUSH Q12H [facility] Last Admin: 03/25/19 21:32 Dose: 20 mg Furosemide (Lasix) 20 mg IVPUSH Q8H [facility] Last Admin: 03/28/19 09:14 Dose: 20 mg Furosemide (Lasix) 20 mg IVPUSH Q12H [facility] Last Admin: 03/28/19 21:46 Dose: 20 mg Furosemide (Lasix) 20 mg IVPUSH ONETIME ONE Stop: 04/03/19 17:42 Last Admin: 04/03/19 18:14 Dose: 20 mg Glucagon (Glucagen) 1 mg IM ASDIRECTED PRN PRN Reason: HYPOGLYCEMIA Glycopyrrolate (Robinul) Confirm Administered Dose 1 mg .ROUTE .STK-MED ONE Stop: 03/08/19 12:18 Haloperidol Lactate (Haldol) 5 mg IVPUSH BID [facility] Last Admin: 03/09/19 09:06 Dose: 5 mg Haloperidol Lactate (Haldol) 2.5 mg IVPUSH BID [facility] Last Admin: 03/31/19 08:37 Dose: 2.5 mg Heparin Sodium (Porcine) (Heparin Sodium) Confirm Administered Dose 5,000 units .ROUTE .STK-MED ONE Stop: 03/10/19 07:04 Last Admin: 03/10/19 07:57 Dose: Not Given Heparin Sodium (Porcine) (Heparin Lock Flush 100 Units/Ml) Confirm Administered Dose 1,000 units .ROUTE .STK-MED ONE Stop: 03/11/19 07:32 Last Admin: 03/11/19 08:31 Dose: Not Given Heparin Sodium (Porcine) (Heparin Sodium) Confirm Administered Dose 5,000 units .ROUTE .STK-MED ONE Stop: 03/18/19 23:03 Last Admin: 03/19/19 02:36 Dose: Not Given Hydromorphone HCl (Dilaudid [place]ame [place] 15 Mg In Ns 30 Ml) 0 mg IV ASDIRECTED PRN; Protocol PRN Reason: PAIN Last Admin: 03/16/19 16:43 Dose: 15 mg Sodium Chloride (Normal Saline) 1,000 mls @ 1,000 mls/hr IV ASDIRECTED [facility] Last Admin: 03/08/19 10:02 Dose: 1,000 mls/hr Ampicillin Sodium/Sulbactam (Sodium 1.5 gm/ Sodium Chloride) 50 mls @ 100 mls/ hr IV Q6H [facility] Last Admin: 03/08/19 13:30 Dose: 100 mls/hr Aztreonam 1 gm/ Sodium (Chloride) 50 mls @ 100 mls/hr IV Q12H [facility] Last Admin: 03/08/19 13:30 Dose: 100 mls/hr Lactated Ringer's (Ringers, Lactated) 1,000 mls @ 150 mls/hr IV ASDIRECTED [facility] Last Admin: 03/08/19 13:31 Dose: 150 mls/hr Lactated Ringer's (Ringers, Lactated) Confirm Administered Dose 1,000 mls @ as directed .ROUTE .STK-MED ONE Stop: 03/08/19 15:16 Lactated Ringer's (Ringers, Lactated) 1,000 mls @ 100 mls/hr IV ASDIRECTED [facility] Last Admin: 03/09/19 03:26 Dose: 100 mls/hr Dextrose/Lactated Ringer's (Dextrose 5%-Lactated Ringers) 1,000 mls @ 100 mls/ hr IV ASDIRECTED [facility] Stop: 03/12/19 11:59 Last Admin: 03/11/19 23:35 Dose: 100 mls/hr Ampicillin Sodium/Sulbactam (Sodium 3 gm/ Sodium Chloride) 100 mls @ 200 mls/ hr IV Q6H [facility] Last Admin: 03/13/19 05:19 Dose: 200 mls/hr Aztreonam 1 gm/ Sodium (Chloride) 50 mls @ 100 mls/hr IV Q8H [facility] Last Admin: 03/13/19 04:23 Dose: 100 mls/hr Valproic Acid 500 mg/ Sodium (Chloride) 55 mls @ 55 mls/hr IV Q8H [facility] Last Admin: 03/31/19 04:58 Dose: 55 mls/hr Potassium Chloride 20 meq/Lidocaine HCl 2 ml/ Sodium Chloride 112 mls @ 56 mls/ hr IV Q2H [facility] Stop: 03/09/19 15:59 Last Admin: 03/09/19 17:30 Dose: 56 mls/hr Lactated Ringer's (Ringers, Lactated) 750 mls @ 750 mls/hr IV BOLUS ONE Stop: 03/09/19 16:25 Last Admin: 03/09/19 15:53 Dose: 750 mls/hr Lactated Ringer's (Ringers, Lactated) 750 mls @ 999 mls/hr IV BOLUS ONE Stop: 03/09/19 21:15 Last Admin: 03/09/19 21:08 Dose: 999 mls/hr Heparin Sodium (Porcine) 5,000 (units/ Sodium Chloride) 501 mls @ 5 mls/hr IV ASDIRECTED [facility] Last Admin: 03/12/19 13:58 Dose: 5 mls/hr Propofol (Diprivan 100 Ml) 100 mls @ 2.191 mls/hr IV TITRATE [facility]; Protocol Last Titration: 03/15/19 07:18 Dose: 0 mcg/kg/min, 0 mls/hr Linezolid 600 mg/ Premix 300 mls @ 300 mls/hr IV Q12H [facility] Last Admin: 03/11/19 21:53 Dose: 300 mls/hr Potassium Chloride 20 meq/Lidocaine HCl 2 ml/ Sodium Chloride 112 mls @ 56 mls/ hr IV Q2H [facility] Stop: 03/10/19 16:29 Last Admin: 03/10/19 16:07 Dose: 56 mls/hr Potassium Chloride 20 meq/ (Premix) 0 mls @ 50 mls/hr IV Q2H [facility] Stop: 03/11/19 07:28 Last Admin: 03/11/19 07:32 Dose: 50 mls/hr Magnesium Sulfate 2 gm/ Premix 50 mls @ 25 mls/hr IV Q6H [facility] Last Admin: 03/12/19 04:27 Dose: 25 mls/hr Potassium Phosphate 20 mmole/ (Sodium Chloride) 256.6667 mls @ 85 mls/hr IV Q3H [facility] Stop: 03/11/19 17:59 Last Admin: 03/11/19 14:42 Dose: 85 mls/hr Multivitamins/Minerals 10 ml/Chromium/Copper/Manganese/Seleni/Zn 1 ml/ Amino Ac/ Electrol/Dextrose/Calcium 1,011 mls @ 82 mls/hr IV .BY DURATION [facility] Last Admin: 03/13/19 12:34 Dose: 82 mls/hr Amino Ac/Electrol/Dextrose/Calcium (Clinimix E 12/08) 1,000 mls @ 82 mls/hr IV .BY DURATION [facility] Last Admin: 03/14/19 01:20 Dose: 82 mls/hr Sodium Chloride (Normal Saline) 1,000 mls @ 20 mls/hr IV ASDIRECTED [facility] Last Admin: 03/13/19 22:58 Dose: 20 mls/hr Potassium Phosphate 20 mmole/ (Sodium Chloride) 256.6667 mls @ 85.556 mls/hr IV Q3H [facility] Stop: 03/12/19 16:59 Last Admin: 03/12/19 14:49 Dose: 85.556 mls/hr Potassium Chloride 20 meq/ (Premix) 100 mls @ 50 mls/hr IV ONETIME ONE Stop: 03/13/19 10:59 Last Admin: 03/13/19 09:29 Dose: 50 mls/hr Potassium Phosphate 30 mmole/ (Sodium Chloride) 110 mls @ 30 mls/hr IV ONETIME ONE Stop: 03/13/19 14:39 Last Admin: 03/13/19 12:14 Dose: 30 mls/hr Linezolid 600 mg/ Premix 300 mls @ 300 mls/hr IV Q12H [facility] Last Admin: 03/20/19 09:52 Dose: 300 mls/hr Magnesium Sulfate 2 gm/ Premix 50 mls @ 25 mls/hr IV Q6H [facility] Stop: 03/16/19 03:59 Last Admin: 03/16/19 01:59 Dose: 25 mls/hr Azithromycin 250 mg/ Sodium (Chloride) 150 mls @ 150 mls/hr IV Q12H [facility] Azithromycin 250 mg/ Sodium (Chloride) 150 mls @ 150 mls/hr IV Q24H [facility] Last Admin: 03/17/19 11:28 Dose: 150 mls/hr Multivitamins/Minerals 10 ml/Chromium/Copper/Manganese/Seleni/Zn 1 ml/ Amino Ac/ Electrol/Dextrose/Calcium 1,011 mls @ 82 mls/hr IV .BY DURATION [facility] Stop: 03/18/19 14:59 Last Admin: 03/17/19 14:26 Dose: 82 mls/hr Amino Ac/Electrol/Dextrose/Calcium (Clinimix E 5/15) 1,000 mls @ 82 mls/hr IV .BY DURATION [facility] Stop: 03/18/19 14:59 Last Admin: 03/18/19 03:38 Dose: 82 mls/hr Multivitamins/Minerals 10 ml/Chromium/Copper/Manganese/Seleni/Zn 1 ml/ Amino Ac/ Electrol/Dextrose/Calcium 1,011 mls @ 80 mls/hr IV .BY DURATION [facility] Last Admin: 03/18/19 16:05 Dose: 40 mls/hr Amino Ac/Electrol/Dextrose/Calcium (Clinimix E 12/08) 1,000 mls @ 40 mls/hr IV .BY DURATION [facility] Piperacillin Sod/Tazobactam (Sod 3.375 gm/ Sodium Chloride) 50 mls @ 100 mls/ hr IV Q6H [facility] Last Admin: 03/19/19 04:17 Dose: 100 mls/hr Sodium Chloride (Normal Saline) Confirm Administered Dose 50 mls @ as directed .ROUTE .STK-MED ONE Stop: 03/18/19 21:35 Last Admin: 03/18/19 21:40 Dose: Not Given Propofol (Diprivan 100 Ml) Confirm Administered Dose 100 mls @ as directed .ROUTE .STK-MED ONE Stop: 03/18/19 23:04 Last Admin: 03/19/19 01:04 Dose: Not Given Propofol (Diprivan 100 Ml) 100 mls @ 2.195 mls/hr IV TITRATE [facility]; Protocol Last Titration: 03/27/19 07:00 Dose: 0 mcg/kg/min, 0 mls/hr Heparin Sodium (Porcine) 5,000 (units/ Sodium Chloride) 501 mls @ 0.1 mls/hr IV ASDIRECTED [facility] Last Admin: 03/27/19 15:35 Dose: 1 units/hr, 0.1 mls/hr Sodium Chloride (Normal Saline) 500 mls @ 999 mls/hr IV .BOLUS ONE Stop: 03/19/19 00:00 Last Admin: 03/19/19 00:00 Dose: 999 mls/hr Sodium Chloride (Normal Saline) 1,000 mls @ 20 mls/hr IV ASDIRECTED [facility] Last Admin: 03/30/19 23:53 Dose: 20 mls/hr Sodium Chloride (Normal Saline) 100 mls @ 4 mls/sec IV ASDIRECTED [facility] Stop: 03/19/19 10:00 Last Admin: 03/19/19 07:45 Dose: 4 mls/sec Multivitamins/Minerals 10 ml/Chromium/Copper/Manganese/Seleni/Zn 1 ml/ Amino Ac/ Electrol/Dextrose/Calcium 1,011 mls @ 80 mls/hr IV .BY DURATION [facility] Stop: 03/19/19 20:00 Amino Ac/Electrol/Dextrose/Calcium (Clinimix E 5/15) 1,000 mls @ 80 mls/hr IV .BY DURATION [facility] Stop: 03/19/19 20:00 Last Admin: 03/19/19 08:12 Dose: 80 mls/hr Piperacillin/Tazobactam/ (Dextrose 3.375 gm/ Premix) 50 mls @ 100 mls/hr IV Q6H [facility] Last Admin: 03/25/19 09:29 Dose: 100 mls/hr Multivitamins/Minerals 10 ml/Chromium/Copper/Manganese/Seleni/Zn 1 ml/ Amino Ac/ Electrol/Dextrose/Calcium 1,011 mls @ 82 mls/hr IV .BY DURATION [facility] Stop: 03/23/19 20:00 Last Admin: 03/22/19 21:45 Dose: 82 mls/hr Amino Ac/Electrol/Dextrose/Calcium (Clinimix E 5/15) 1,000 mls @ 82 mls/hr IV .BY DURATION [facility] Stop: 03/23/19 20:00 Last Admin: 03/23/19 11:17 Dose: Not Given Albumin Human (Albumin 25%) 25 gm in 100 mls @ 25 mls/hr IV Q24H [facility] Stop: 03/23/19 11:59 Last Admin: 03/23/19 08:20 Dose: 25 mls/hr Albumin Human (Albumin 25%) 25 gm in 100 mls @ 25 mls/hr IV Q24H [facility] Stop: 03/23/19 15:59 Last Admin: 03/23/19 11:22 Dose: 25 mls/hr Azithromycin 250 mg/ Sodium (Chloride) 150 mls @ 150 mls/hr IV Q24H [facility] Last Admin: 03/24/19 11:55 Dose: 150 mls/hr Potassium Chloride 20 meq/ (Premix) 100 mls @ 50 mls/hr IV ONETIME ONE Stop: 03/21/19 10:59 Last Admin: 03/21/19 09:29 Dose: 50 mls/hr Potassium Chloride 40 meq/ (Premix) 100 mls @ 25 mls/hr IV ONETIME ONE Stop: 03/22/19 13:59 Last Admin: 03/22/19 10:01 Dose: 25 mls/hr Magnesium Sulfate 2 gm/ Premix 50 mls @ 25 mls/hr IV Q6H [facility] Stop: 03/26/19 03:59 Last Admin: 03/24/19 08:07 Dose: 25 mls/hr Potassium Chloride 40 meq/ (Premix) 100 mls @ 25 mls/hr IV ONETIME ONE Stop: 03/23/19 13:59 Last Admin: 03/23/19 09:22 Dose: 25 mls/hr Multivitamins/Minerals 10 ml/Chromium/Copper/Manganese/Seleni/Zn 1 ml/ Amino Ac/ Electrol/Dextrose/Calcium 1,011 mls @ 82 mls/hr IV .BY DURATION [facility] Last Admin: 04/02/19 02:05 Dose: 82 mls/hr Amino Ac/Electrol/Dextrose/Calcium (Clinimix E 15) 1,000 mls @ 82 mls/hr IV .BY DURATION [facility] Last Admin: 04/01/19 14:27 Dose: 82 mls/hr Potassium Chloride 40 meq/ (Premix) 100 mls @ 25 mls/hr IV ONETIME ONE Stop: 03/24/19 13:59 Last Admin: 03/24/19 09:54 Dose: 25 mls/hr Potassium Chloride 40 meq/ (Premix) 100 mls @ 25 mls/hr IV ONETIME ONE Stop: 03/25/19 13:59 Last Admin: 03/25/19 10:32 Dose: 25 mls/hr Fat Emulsion Intravenous (Intralipid 20%) 100 mls @ 8.3 mls/hr IV Q48H [facility] Last Admin: 03/29/19 15:52 Dose: 8.3 mls/hr Magnesium Sulfate 2 gm/ Premix 50 mls @ 25 mls/hr IV Q6H [facility] Stop: 03/30/19 03:59 Last Admin: 03/30/19 03:14 Dose: 25 mls/hr Meropenem 1 gm/ Sodium (Chloride) 50 mls @ 100 mls/hr IV Q8H [facility] Last Admin: 04/03/19 08:02 Dose: 100 mls/hr Sodium Chloride (Normal Saline) 75 mls @ 3 mls/sec IV ASDIRECTED [facility] Last Admin: 03/30/19 10:36 Dose: 3 mls/sec Sodium Chloride (Normal Saline) 100 mls @ 3 mls/sec IV ONETIME ONE Stop: 03/30/19 10:27 Last Admin: 03/30/19 19:19 Dose: Not Given Magnesium Sulfate 2 gm/ Premix 50 mls @ 25 mls/hr IV Q6H [facility] Stop: 04/02/19 10:00 Last Admin: 04/02/19 09:24 Dose: 25 mls/hr Multivitamins/Minerals 10 ml/Chromium/Copper/Manganese/Seleni/Zn 1 ml/ Amino Ac/ Electrol/Dextrose/Calcium 1,011 mls @ 40 mls/hr IV .BY DURATION [facility] Stop: 04/03/19 13:00 Last Admin: 04/02/19 13:35 Dose: 40 mls/hr Amino Ac/Electrol/Dextrose/Calcium (Clinimix E 5/15) 1,000 mls @ 40 mls/hr IV .BY DURATION [facility] Stop: 04/03/19 13:00 Multivitamins/Minerals 10 ml/Chromium/Copper/Manganese/Seleni/Zn 1 ml/ Amino Ac/ Electrol/Dextrose/Calcium 1,011 mls @ 20 mls/hr IV .BY DURATION [facility] Last Admin: 04/03/19 15:23 Dose: 20 mls/hr Amino Ac/Electrol/Dextrose/Calcium (Clinimix E 5/15) 1,000 mls @ 20 mls/hr IV .BY DURATION [facility] Magnesium Sulfate 2 gm/ Premix 50 mls @ 25 mls/hr IV ONETIME ONE Stop: 04/03/19 11:59 Last Admin: 04/03/19 10:05 Dose: 25 mls/hr Insulin Glargine (Lantus Solostar) 10 units SUBCUT BID [facility] Last Admin: 03/16/19 09:27 Dose: 10 unit Insulin Glargine (Lantus Solostar) 14 units SUBCUT BID [facility] Last Admin: 03/18/19 09:06 Dose: 14 units Insulin Glargine (Lantus Solostar) 7 units SUBCUT BID [facility] Stop: 03/18/19 21:01 Last Admin: 03/18/19 21:25 Dose: Not Given Insulin Glargine (Lantus Solostar) 12 units SUBCUT BID [facility] Last Admin: 04/02/19 08:24 Dose: 12 units Insulin Glargine (Lantus Solostar) 14 units SUBCUT BID [facility] Last Admin: 04/03/19 08:26 Dose: 14 unit Insulin Glargine (Lantus Solostar) 10 units SUBCUT BID [facility] Last Admin: 04/04/19 10:00 Dose: 10 units Insulin Human Lispro (Humalog) 0 unit SUBCUT Q6H PRN; Protocol PRN Reason: MEDIUM CORRECTIONAL DOSING Last Admin: 03/14/19 17:42 Dose: 7 units Insulin Human Lispro (Humalog) 15 unit SUBCUT ONETIME ONE Stop: 03/14/19 12:05 Last Admin: 03/14/19 12:10 Dose: 15 units Insulin Human Lispro (Humalog) 0 unit SUBCUT ASDIRECTED [facility]; Protocol Last Admin: 04/02/19 08:26 Dose: 3 units Insulin Human Lispro (Humalog) 0 unit SUBCUT ONETIME ONE Stop: 03/15/19 00:16 Last Admin: 03/15/19 00:25 Dose: 12 units Insulin Human Lispro (Humalog) 0 unit SUBCUT QIDACANDBED [facility]LY [facility]; Protocol Last Admin: 04/05/19 07:42 Dose: Not Given Iohexol (Omnipaque-300) 100 ml IVPUSH . DIRECTED WILI Iopamidol (Isovue-370 (76%)) 100 ml IV . DIRECTED [facility] Stop: 03/19/19 10:00 Last Admin: 03/19/19 07:45 Dose: 100 ml Iopamidol (Isovue-300 (61%)) 100 ml IV . DIRECTED PRN PRN Reason: RADIOLOGY EXAM Last Admin: 03/30/19 10:36 Dose: 100 ml Levothyroxine Sodium (Synthroid) 100 mcg IVPUSH DAILY [facility] Last Admin: 03/31/19 08:33 Dose: 100 mcg Lidocaine HCl (Xylocaine-Mpf 1%) 5 ml INJECT ONETIME ONE Stop: 03/11/19 05:30 Last Admin: 03/11/19 05:39 Dose: 2 ml Lidocaine/Epinephrine (Xylocaine 1% With Epinephrine 1:100,000) Confirm Administered Dose 50 ml .ROUTE .STK-MED ONE Stop: 03/10/19 06:23 Lidocaine/Epinephrine (Xylocaine 1% With Epinephrine 1:100,000) Confirm Administered Dose 50 ml .ROUTE .STK-MED ONE Stop: 03/11/19 07:19 Last Admin: 03/11/19 07:28 Dose: 15 ml Linezolid (Zyvox) 600 mg IRR .STK-MED ONE Stop: 03/11/19 07:39 Last Admin: 03/11/19 07:38 Dose: 600 mg Lorazepam (Ativan) 0.5 mg IVPUSH BID [facility] Last Admin: 03/09/19 09:09 Dose: 0.5 mg Lorazepam (Ativan) 0.5 mg IVPUSH Q4H PRN PRN Reason: Anxiety Last Admin: 03/27/19 10:07 Dose: 0.5 mg Lorazepam (Ativan) 0.25 mg IVPUSH BID [facility] Last Admin: 03/10/19 09:09 Dose: 0.25 mg Lorazepam (Ativan) 0.5 mg IVPUSH BID [facility] Last Admin: 03/30/19 21:01 Dose: 0.5 mg Lorazepam (Ativan) 1 mg PO BID [facility] Last Admin: 04/05/19 22:37 Dose: 1 mg Meropenem (Merrem) Confirm Administered Dose 500 mg .ROUTE .STK-MED ONE Stop: 03/08/19 12:05 Last Admin: 03/08/19 14:00 Dose: 500 mg Meropenem (Merrem) Confirm Administered Dose 500 mg .ROUTE .STK-MED ONE Stop: 03/10/19 06:23 Meropenem (Merrem) Confirm Administered Dose 500 mg .ROUTE .STK-MED ONE Stop: 03/11/19 06:45 Last Admin: 03/11/19 07:38 Dose: 500 mg Methylprednisolone Sodium Succinate (Solu-Medrol) 40 mg IVPUSH Q6H [facility] [facility] Last Admin: 03/20/19 09:50 Dose: 40 mg Methylprednisolone Sodium Succinate (Solu-Medrol) 40 mg IVPUSH Q6H [facility] Last Admin: 04/01/19 10:25 Dose: 40 mg Methylprednisolone Sodium Succinate (Solu-Medrol) 40 mg IVPUSH Q12H [facility] Last Admin: 04/01/19 21:19 Dose: 40 mg Metoprolol Tartrate (Lopressor) 5 mg IV Q6H [facility] Last Admin: 03/26/19 07:56 Dose: Not Given Metoprolol Tartrate (Lopressor) 2.5 mg IV Q6H [facility] Last Admin: 03/29/19 05:23 Dose: 2.5 mg Metoprolol Tartrate (Lopressor) 5 mg IV Q6H [facility] Last Admin: 03/31/19 04:53 Dose: 5 mg Morphine Sulfate (Morphine) 2 mg IVPUSH Q1H PRN PRN Reason: Other Last Admin: 03/31/19 01:30 Dose: 2 mg Naloxone HCl (Narcan) 0.1 mg IV ASDIRECTED PRN PRN Reason: decreased respiratory rate Neostigmine Methylsulfate (Neostigmine) Confirm Administered Dose 5 mg .ROUTE .STK-MED ONE Stop: 03/08/19 12:18 Non-Formulary Medication (Total Parenteral Nutrition, Central) 1,000 ml .XX .Continue Order [facility] Stop: 03/22/19 12:00 Non-Formulary Medication (Total Parenteral Nutrition, Central) 1,000 ml .XX .Continue Order [facility] Stop: 03/23/19 12:00 Non-Formulary Medication (Total Parenteral Nutrition, Central) 1,000 ml .XX .Continue Order [facility] Stop: 03/24/19 15:00 Non-Formulary Medication (Total Parenteral Nutrition, Central) 1,000 ml .XX .Continue Order [facility] Stop: 03/26/19 12:00 Non-Formulary Medication (Total Parenteral Nutrition, Central) 0 ml IV ASDIRECTED [facility] Stop: 03/31/19 13:01 Non-Formulary Medication (Total Parenteral Nutrition, Central) 1,000 ml .XX .Continue Order [facility] Stop: 04/01/19 10:00 Non-Formulary Medication (Total Parenteral Nutrition, Central) 1,000 ml .XX .Continue Order [facility] Stop: 04/02/19 10:00 Non-Formulary Medication (Total Parenteral Nutrition, Central) 1,000 ml .XX .Continue Order [facility] Stop: 04/03/19 10:00 Non-Formulary Medication (Total Parenteral Nutrition, Central) 1,000 ml .XX .Continue Order [facility] Stop: 04/04/19 10:00 Nystatin (Nystop) 0 gm TOP QID [facility] Last Admin: 03/31/19 11:05 Dose: 1 applic Ondansetron HCl (Zofran) Confirm Administered Dose 4 mg .ROUTE .STK-MED ONE Stop: 03/08/19 12:18 Ondansetron HCl (Zofran) 4 mg IVPUSH Q6H PRN PRN Reason: Nausea/Vomiting Pantoprazole Sodium (Protonix Iv) 40 mg IV Q24H [facility] Last Admin: 03/30/19 17:44 Dose: 40 mg Piperacillin Sod/Tazobactam Sod (Zosyn) Confirm Administered Dose 3.375 gm .ROUTE .STK-MED ONE Stop: 03/18/19 21:34 Last Admin: 03/18/19 21:40 Dose: Not Given Propofol (Diprivan 20 Ml) Confirm Administered Dose 200 mg .ROUTE .STK-MED ONE Stop: 03/08/19 12:18 Propofol (Diprivan 20 Ml) Confirm Administered Dose 200 mg .ROUTE .STK-MED ONE Stop: 03/10/19 07:33 Racepinephrine (S-2 2.25%) 0.5 ml NEB Q2H PRN PRN Reason: Shortness of Breath Last Admin: 03/28/19 00:32 Dose: 0.5 ml Rocuronium [place] (Zemuron) Confirm Administered Dose 50 mg .ROUTE .STK-MED ONE Stop: 03/08/19 12:18 Scopolamine (Transderm-Scop) 1.5 mg TRDERM Q72H [facility] Last Admin: 03/28/19 10:35 Dose: 1.5 mg Sodium Chloride (Saline Flush) 10 ml FLUSH ONETIME ONE Stop: 03/30/19 10:02 Last Admin: 03/30/19 10:35 Dose: 10 ml Sodium Chloride (Saline Flush) 10 ml FLUSH ONETIME PRN PRN Reason: PER RADIOLOGY PROTOCOL Succinylcholine Chloride (Quelicin) Confirm Administered Dose 200 mg .ROUTE .STK -MED ONE Stop: 03/08/19 12:18 Succinylcholine Chloride (Quelicin) Confirm Administered Dose 200 mg .ROUTE .STK -MED ONE Stop: 03/10/19 07:33 - Exam Quality Assessment: Supplemental Oxygen General: Alert, Cooperative, No Acute Distress HEENT: Pupils Equal Lungs: Clear to Auscultation, Normal Respiratory Effort, Decreased Breath Sounds (mild right lung base) Cardiovascular: Regular Rate, Regular Rhythm GI/Abdominal Exam: Normal Bowel Sounds, Soft, Distended (mild), Tender (mild generalized ) Extremities: No Pedal Edema. No: Increased Warmth Skin: Warm, Dry Psy/Mental Status: Alert. No: Agitated - Problem List & Annotations (1) Small bowel obstruction due to adhesions SNOMED Code(s): 458228942 Code(s): K56.50 - INTESTNL ADHESIONS, UNSP TO PARTIAL VERSUS COMPLETE OBST Status: Acute Current Visit: Yes (2) Acute kidney injury SNOMED Code(s): 49986081, 34768225 Code(s): N17.9 - ACUTE KIDNEY FAILURE, UNSPECIFIED Status: Acute Current Visit: Yes (3) Schizophrenia SNOMED Code(s): 00942213 Code(s): F20.9 - SCHIZOPHRENIA, UNSPECIFIED Status: Chronic Current Visit : No Qualifiers: Schizophrenia type: unspecified Qualified Code(s): F20.9 - Schizophrenia, unspecified (4) Hypothyroid SNOMED Code(s): 95681548 Code(s): E03.9 - HYPOTHYROIDISM, UNSPECIFIED Status: Chronic Current Visit: No Qualifiers: Hypothyroidism type: acquired Qualified Code(s): E03.9 - Hypothyroidism, unspecified (5) HTN (hypertension) SNOMED Code(s): 66803315 Code(s): I10 - ESSENTIAL (PRIMARY) HYPERTENSION Status: Chronic Current Visit: No Qualifiers: Hypertension type: essential hypertension Qualified Code(s): I10 - Essential (primary) hypertension - Problem List Review Problem List Initiated/Reviewed/Updated: Yes - My Orders Last 24 Hours: My Active Orders 04/06/19 10:15 Polyethylene Glycol 3350 [MiraLAX] 17 gm PO DAILY 04/07/19 05:00 Abdomen 2V AP Flat Upright [CR] DAILY BASIC METABOLIC PANEL,BMP [CHEM] Timed CBC W/O DIFF,HEMOGRAM [HEME] Timed (1) - Plan Plan:: ASSESSMENT AND PLAN - Acute respiratory failure with hypoxia and hypercapnia - this is his third round of difficulty following aspiration. Slowly getting better and requiring only minimal supplemental oxygen at this time. -Scheduled and as needed nebulizers -Supplement oxygen -Vigorous pulmonary toilet -Supplement oxygen as needed -Antibiotics and steroids if respiratory status worsens Diarrhea - resolved, likely secondary to recent aggressive bowel stimulation. -Discontinue precautions Small bowel obstruction with pneumatosis - status post emergent laparotomy with small bowel resection and right colectomy 03/08. Still has mild pain and some distention. X-ray suggest partial obstruction. -Maris lax daily along with senna plus daily to keep bowel movements soft to loose -Flat and upright x-ray in the morning -Soft low residue diet -Pain control Severe schizophrenia - patient is very debilitated because of his psychiatric illness. No behavior issues so far. -Continue usual oral medications Maintenance issues - - DVT prophylaxis - mechanical - GI prophylaxis - oral H2 holden - Nutrition - soft with low residual Disposition - anticipate discharge to the senior care. the patient's hospital stay has been greatly prolonged by multiple unforeseen complications including prolonged return of bowel function postoperatively, recurrent aspirations leading to respiratory failure and reintubation. He should be ready for discharge to rehabilitation tomorrow barring additional unforeseen complications. Farhan Nj M.D.
[2019-04-06] MEDS: SCOPOLAMINE PATCH CHECK TOP SCH (11:17)
[2019-04-06] MEDS: Polyethylene Glycol 3350 Powder 17 GM Packet PO SCH (12:18)
[2019-04-06] MEDS: CLOZAPINE 100 MG PO SCH (21:26)
[2019-04-06] MEDS: Divalproex Sodium Delayed-Release 250 MG Tab.CR PO SCH (21:26)
[2019-04-06] MEDS: Latanoprost 0.005% Ophth Soln 2.5 ML Bottle EYEBOTH SCH (21:29)
[2019-04-07] MEDS: Sodium Chloride 5% Ophth Soln 15 ML Bottle EYEBOTH SCH ×2 (05:45→11:27)
[2019-04-07] MEDS: Nystatin Topical Powder 15 GM Bottle TOP SCH ×2 (05:46→11:27)
--- NOTE | 2019-04-07 06:06 | CRLCR ---
INDICATION: Small bowel obstruction; followup. Comparison: CT chest, abdomen and pelvis March 30, 2019; radiographic examination of the abdomen April 06, 2019. TECHNIQUE: radiographic examination of the abdomen three-view study including upright. FINDINGS: Persistent dilatation of the small bowel indicating mechanical small bowel obstruction. Fluid levels identified. No pneumoperitoneum .venous catheter in the right atrium. Diet or change IMPRESSION: 1. Persistent small bowel obstruction without any interval change. 2. No pneumoperitoneum. Dictated by Geni Torrez MD @ Apr 07 2019 6:00AM Signed by Dr. Geni Torrez @ Apr 07 2019 6:04AM
[2019-04-07] MEDS: Albuterol/Ipratropium 3.0-0.5 MG/3 ML Neb Soln INH SCH ×2 (07:01→10:43)
[2019-04-07] MEDS: Lactobacillus Rhamnosus GG (Probiotic) Cap PO SCH (08:03)
[2019-04-07] MEDS: Levothyroxine 88 MCG Tab PO SCH (08:03)
[2019-04-07] MEDS: Haloperidol 5 MG Tab PO SCH (08:04)
[2019-04-07] MEDS: Doxazosin 4 MG Tab PO SCH (08:04)
[2019-04-07] MEDS: Atenolol 50 MG Tab PO SCH (08:05)
[2019-04-07] MEDS: Famotidine 20 MG Tab PO SCH (08:06)
[2019-04-07] MEDS: Magnesium Oxide 400 MG Tab PO SCH (08:06)
[2019-04-07] MEDS: LORazepam 1 MG Tab PO SCH (08:15)
[2019-04-07] MEDS: SCOPOLAMINE PATCH CHECK TOP SCH (10:01)
--- NOTE | 2019-04-07 10:28 | PN ---
DATE OF SERVICE: 03/30/2019 The patient continues to have moderate NG output. He has been successfully extubated. I think we will leave the NG tube in overnight in the event that we need to place a central line with him in a supine or Trendelenburg position. A PICC line will be attempted once again. If successful, we will use that for TPN. Either way, we will get a central line in either tonight or tomorrow. The CT scan again looked essentially normal as far as the abdomen goes and is unclear why he was developing the recurrent nausea and vomiting. Tomorrow, we will probably get the NG tube out and then carefully try feeding him. Haider Monae MD /[id number]
[2019-04-07] MEDS: Polyethylene Glycol 3350 Powder 17 GM Packet PO SCH (11:26)
[2019-04-07 11:33] VITALS: PULSE 68
[2019-04-07 11:50] VITALS: BP 185/66
--- NOTE | 2019-04-07 12:20 | PCM.DCSUM1 ---
Discharge Summary - Hospital Course Brief History: 58-year-old male with history of recurrent all obstructions as well as severe schizophrenia who presented with progressive abdominal pain, abdominal distention and lethargy. He was admitted with an urgent trip to the operating room for management of high-grade bowel obstruction with pneumatosis. Diagnosis: Stroke: No - Discharge Data Discharge Date: 04/07/19 Discharge Disposition: DC/Tfer to [facility] 03 Condition: Fair - Referral to Home Health Primary Care Physician: BRODERICK Shi - Discharge Diagnosis/Problem(s) (1) Small bowel obstruction due to adhesions SNOMED Code(s): 374880422 ICD Code: K56.50 - INTESTNL ADHESIONS, UNSP TO PARTIAL VERSUS COMPLETE OBST Status: Acute Current Visit: Yes (2) Acute kidney injury SNOMED Code(s): 26692927, 75319369 ICD Code: N17.9 - ACUTE KIDNEY FAILURE, UNSPECIFIED Status: Acute Current Visit: Yes (3) Aspiration pneumonitis SNOMED Code(s): 139319724 ICD Code: J69.0 - PNEUMONITIS DUE TO INHALATION OF FOOD AND VOMIT Status: Acute Current Visit: Yes (4) Acute respiratory failure with hypoxia and hypercapnia SNOMED Code(s): 846082039 ICD Code: J96.01 - ACUTE RESPIRATORY FAILURE WITH HYPOXIA; J96.02 - ACUTE RESPIRATORY FAILURE WITH HYPERCAPNIA Status: Acute Current Visit: Yes (5) Hypokalemia SNOMED Code(s): 48713442 ICD Code: E87.6 - HYPOKALEMIA Status: Acute Current Visit: Yes (6) Status post small bowel resection SNOMED Code(s): 981446342754825, 097559757, 598568340146759 ICD Code: Z90.49 - ACQUIRED ABSENCE OF OTHER SPECIFIED PARTS OF DIGESTIVE TRACT Status: Acute Current Visit: Yes (7) Status post colectomy SNOMED Code(s): 261472195, 51540894, 85245758, 005769954 ICD Code: Z90.49 - ACQUIRED ABSENCE OF OTHER SPECIFIED PARTS OF DIGESTIVE TRACT Status: Acute Current Visit: Yes (8) HTN (hypertension) SNOMED Code(s): 88361210 ICD Code: I10 - ESSENTIAL (PRIMARY) HYPERTENSION Status: Chronic Current Visit: No Qualifiers: Hypertension type: essential hypertension Qualified Code(s): I10 - Essential (primary) hypertension (9) Schizophrenia SNOMED Code(s): 46443994 ICD Code: F20.9 - SCHIZOPHRENIA, UNSPECIFIED Status: Chronic Current Visit: No Qualifiers: Schizophrenia type: unspecified Qualified Code(s): F20.9 - Schizophrenia, unspecified (10) Hypothyroid SNOMED Code(s): 81794905 ICD Code: E03.9 - HYPOTHYROIDISM, UNSPECIFIED Status: Chronic Current Visit: No Qualifiers: Hypothyroidism type: acquired Qualified Code(s): E03.9 - Hypothyroidism, unspecified (11) Acute deep vein thrombosis (DVT) of right upper extremity SNOMED Code(s): 647046675708226 ICD Code: I82.621 - ACUTE EMBOLISM AND THROMBOSIS OF DEEP VEINS OF R UP EXTREM Status: Acute Current Visit: Yes Qualifiers: Affected thrombotic vein of extremity: brachial Qualified Code(s): I82.621 - Acute embolism and thrombosis of deep veins of right upper extremity - Patient Summary/Data Operative Procedure(s) Performed: 03/08 - exploratory laparotomy with decompression of small bowel with small bowel resection as well as partial transverse colon resection. He had additional lysis of adhesions and drainage of an abscess. 03/11 - delayed primary closure and triple-lumen catheter insertion. 03/20 - triple-lumen catheter was replaced Consults: Consultations 03/08/19 17:27 Consult to Physician [CONS] Routine Consulting Provider: Haider Monae Call Completed to Consulting Physician: Yes Reason for Consult: SBO Person Notified: MARROQUIN Date Notified: 03/08/19 Special Instructions: surgery this afternoon 03/14/19 12:18 Consult to Physician [CONS] Routine Consulting Provider: Junior Jaffe Call Completed to Consulting Physician: No Reason for Consult: elevated blood sugars Date Notified: 03/14/19 Time Notified: 12:03/29/19 07:46 PT Evaluation and Treatment [CONS] Routine Please Evaluate and Treat. PT Reason for Consult: postop icu rehab This query below is only for informational purposes and is not editable. Admission Diagnosis/Problem: Small bowel obstruction 03/29/19 14:58 Consult to PICC Team [CONS] Routine Comment: Physician Instructions: 03/31/19 09:04 HEART SURGEON Evaluation and Treatment [CONS] Routine Please Evaluate and Treat HEART SURGEON Reason for Consult: cough with eating This query below is only for informational purposes and is not editable. Admission Diagnosis/Problem: Small bowel obstruction Hospital Course: Tutu presented to the emergency room from his senior care with progressive abdominal distention, weakness and lethargy. Workup in the emergency room revealed acute kidney injury based on laboratory testing as well as hypokalemia and hyponatremia. Imaging suggested a high grade bowel obstruction with pneumatosis. he was started on antibiotics with concern for aspiration. The patient was admitted to the intensive care unit and taken urgently to the operating room. He had an exploratory laparotomy with lysis of adhesions, partial small bowel resection and partial transverse colon resection as well as drainage of an abscess. He was taken to the intensive care unit postoperatively because of hypotension and tachycardia. He did not require vasopressors. Over the next 36 hours he had a decline in his respiratory status because of a large quantity of secretions and difficulty clearing them with a weak cough and significant abdominal pain when trying to cough. his cultures did eventually grow out strep viridans which would be consistent with aspiration. the decline in his respiratory status was thought to be related to probable aspiration with large emesis noted prior to presentation. he was intubated on 03/10. imaging at the time of intubation suggested right lower lung infiltrate consistent with aspiration. He remained intubated for the next several days. On 03/11 he did have a delayed primary closure and triple-lumen catheter placement. He made some slow and steady progress and was extubated successfully on 03/15. Over the next few days he was making progress and his diet was advanced. Antibiotics were discontinued. unfortunately on March 18 he had an episode of emesis and aspiration.Over the next several hours his respiratory status declined fairly quickly and he did require reintubation after failing a short trial of noninvasive ventilation. X-ray imaging of the abdomen suggested bowel obstruction versus ileus. For the next several days we did attempt to diuresed the patient some. He was on antibiotics as well as IV steroids with his aspiration and respiratory failure. We had a fair amount of difficulty with weaning from the ventilator the second time because of a combination of secretions both in his oral cavity as well as endotracheal tube. Eventually with Mucomyst nebulizers, scopolamine patch and very aggressive suctioning were able to extubate the patient on March 27. Initially he was somewhat tenuous with his respiratory status but then did make slow and steady progress over the next 10 days. He did have one additional set back when he had another episode of vomiting on 04/10 with suspected aspiration. He was on antibiotics for 5 days after this but never had a fever. Chest x-ray didn't suggest a right lower lung infiltrate that had returned after the aspiration which would be consistent with a pneumonitis. He didn't ever have a fever but did require supplemental oxygen for several days. Over the last few days we've been able to wean him off the supplemental oxygen. His electrolytes have all been supplemented and have been stable. He has had some mild abdominal distention and x-ray imaging suggest some loops of dilated bowel but he is having regular bowel movements. He has been tolerating his diet without significant pain. He has not had any fevers. I did discuss the situation with Dr. Monae and he recommended that he be on a full liquid diet for a period of time before trying to return to his GI soft/low residue diet. At this point I believe he is safe for discharge from the hospital. He would benefit from subacute rehabilitation before returning to his senior care and the plan is for intermediate discharge. Also encountered during the hospital stay Was malnutrition related to his gastric surgery and prolonged intubation. Nutritional status was augmented using albumin as well as TPN. We have been able to wean him off the TPN and he has been tolerating his diet well and eating 50-100% of his meals. While the patient was on the TPN and he had significant hyperglycemia and required insulin treatment for a period of time. Since the TPN has been discontinued he has no longer required insulin to keep his blood sugars in the normal range. He does not need any anti-hyperglycemic medication at the time of discharge. Also noted at the end of the hospital stay was swelling involving the right arm where he had a PICC line inserted. Ultrasound was obtained and this did show evidence for deep vein thrombosis involving the right arm. His PICC line has been removed. He will be on rivaroxaban (Xarelto) 15 mg twice daily for 21 days and then 20 mg daily for 2 months to complete a total of 3 months of treatment for the provoked DVT. He had multiple electrolyte abnormalities during the hospital stay including low potassium, low magnesium and low sodium. All of these levels have improved with supplementation. As mentioned in the first paragraph he did have acute kidney injury at the time of presentation but this resolved with IV fluid hydration and management of his small bowel obstruction. Psychiatric disease has been stable over the past 2 weeks following his most recent extubation. I believe he is back to his baseline mental status at this time. - Patient Instructions Diet: Full Liquid Diet (x1 week ), GI Soft/Low Residue/Low Fiber (start in 1 week ) Activity: As Tolerated Showering/Bathing: May Shower Notify Provider of: Fever, Increased Pain, Nausea and/or Vomiting Other/Special Instructions: 1. Full liquid diet x1 week then start GI soft/low residual diet. 2. Full code. 3. Referral to PT and OT for strenghthening after prolonged acute illness. 4. Oxygen may be used as needed to keep sats >90 % (currently not needing oxygen) - Discharge Plan *PRESCRIPTION DRUG MONITORING PROGRAM REVIEWED*: Not Applicable *COPY OF PRESCRIPTION DRUG MONITORING REPORT IN PATIENT SIMÓN: Not Applicable Prescriptions/Med Rec: Albuterol [Proventil Neb Soln] 2.5 mg NEB TID #21 neb Dimethicone/Zinc Oxide [Rash Relief-Zinc Oxide] 1 gm TOP BID PRN #1 bottle PRN Reason: Rash Lactobacillus Rhamnosus GG [Culturelle] 1 cap PO BID #14 cap Rivaroxaban [Xarelto] 15 mg PO BID #41 tablet Rivaroxaban [Xarelto] 20 mg PO DAILY #30 tablet Home Medications: Home Meds Atenolol 100 mg PO DAILY 04/15/13 [History] Doxazosin Mesylate [Cardura] 4 mg PO DAILY 04/15/13 [History] Famotidine 40 mg PO BID 04/15/13 [History] Haloperidol 10 mg PO BID 04/15/13 [History] LORazepam [Ativan] 1 mg PO BID 04/15/13 [History] LORazepam [Ativan] 1 mg PO BID PRN 04/15/13 [History] cloZAPine [Clozapine] 450 mg PO QPM 04/15/13 [History] diphenhydrAMINE [Benadryl] 25 mg PO QAM 04/15/13 [History] diphenhydrAMINE [Benadryl] 100 mg PO QPM 04/15/13 [History] Latanoprost [Xalatan 0.005% Ophth Soln] 1 drop OP DAILY 10/06/13 [History] Ibuprofen 600 mg PO Q6HR PRN 10/01/17 [History] Divalproex Sodium 1,500 mg PO BEDTIME 12/03/17 [History] Levothyroxine [Synthroid] 88 mcg PO ACBREAKFAST 12/03/17 [History] Sodium Chloride 5% [Joseph 128 5% Ophth Soln] 1 drop EYEBOTH QID 12/07/17 [History ] Sennosides/Docusate Sodium [Senna-S] 1 each PO DAILY 03/08/19 [History] Albuterol [Proventil Neb Soln] 2.5 mg NEB TID #21 neb 04/07/19 [Rx] Dimethicone/Zinc Oxide [Rash Relief-Zinc Oxide] 1 gm TOP BID PRN #1 bottle 04/07 [Rx] Lactobacillus Rhamnosus GG [Culturelle] 1 cap PO BID #14 cap 04/07/19 [Rx] Polyethylene Glycol 3350 [MiraLAX] 17 gm PO ASDIRECTED #0 04/07/19 [Rx] Rivaroxaban [Xarelto] 15 mg PO BID #41 tablet 04/07/19 [Rx] Rivaroxaban [Xarelto] 20 mg PO DAILY #30 tablet 04/07/19 [Rx] Oxygen Therapy Mode: Room Air Referrals: Shari Smith PA [Primary Care Provider] - - Discharge Summary/Plan Comment DC Time >30 min.: Yes (50 - new [facility] discharge, complex hospital stay ) - Patient Data Vitals - Most Recent: Last Vital Signs Temp 36.2 C 04/07/19 11:46 Pulse 68 04/07/19 11:46 Resp 16 04/07/19 11:46 BP 185/66 H 04/07/19 11:46 Pulse Ox 98 04/07/19 11:28 Weight - Most Recent: 71.7 kg I&O - Last 24 hours: Intake & Output 04/06/19 04/07/19 04/07/19 22:59 06:59 14:59 Intake Total 320 240 360 Balance 320 240 360 Lab Results - Last 24 hrs: Laboratory Results - last 24 hr 03/20/19 04/07/19 04/07/19 Range/Units 08:10 05:00 05:00 WBC 8.5 (4.5-11.0) K/uL RBC 2.97 L (4.30-5.90) M/uL Hgb 8.4 L (12.0-15.0) g/dL Hct 27.3 L (40.0-54.0) % MCV 92 (80-98) fL MCH 28 (27-31) pg MCHC 31 L (32-36) % Plt Count 214 (150-400) K/uL Sodium 141 (140-148) mmol/L Potassium 4.1 (3.6-5.2) mmol/L Chloride 105 (100-108) mmol/L Carbon Dioxide 28 (21-32) mmol/L Anion Gap 7.7 (5.0-14.0) mmol/L BUN 17 (7-18) mg/dL Creatinine 0.8 (0.8-1.3) mg/dL Est Cr Clr Drug Dosing 84.28 mL/min Estimated GFR (MDRD) > 60 (>60) Glucose 103 (74-106) mg/dL Calcium 8.3 L (8.5-10.1) mg/dL Crossmatch See Detail Med Orders - Current: Current Medications Albuterol (Proventil Neb Soln) 2.5 mg NEB Q4H PRN PRN Reason: Shortness Of Breath/wheezing Last Admin: 04/06/19 06:10 Dose: 2.5 mg Albuterol/Ipratropium (Duoneb 3.0-0.5 Mg/3 Ml) 3 ml INH QIDRT COUNT INCLUDES THE [facility] Last Admin: 04/07/19 10:43 Dose: 3 ml Atenolol (Tenormin) 100 mg PO DAILY COUNT INCLUDES THE [facility] Last Admin: 04/07/19 08:05 Dose: 100 mg Dimethicone/Zinc Oxide (Rash Relief-Zinc Oxide [place]) 1 gm TOP ASDIRECTED PRN PRN Reason: Rash Last Admin: 04/05/19 04:44 Dose: 1 applic Divalproex Sodium (Divalproex Sodium) 1,500 mg PO BEDTIME COUNT INCLUDES THE [facility] Last Admin: 04/06/19 21:26 Dose: 1,500 mg Doxazosin Mesylate (Cardura) 4 mg PO DAILY COUNT INCLUDES THE [facility] Last Admin: 04/07/19 08:04 Dose: 4 mg Famotidine (Pepcid) 40 mg PO BID COUNT INCLUDES THE [facility] Last Admin: 04/07/19 08:06 Dose: 40 mg Haloperidol (Haldol) 10 mg PO BID COUNT INCLUDES THE [facility] Last Admin: 04/07/19 08:04 Dose: 10 mg Haloperidol Lactate (Haldol) 2 mg IVPUSH Q4H PRN PRN Reason: Agitation Last Admin: 04/02/19 05:33 Dose: 2 mg Heparin Sodium (Porcine) (Heparin Lock Flush 100 Units/Ml) 500 units FLUSH ASDIRECTED PRN PRN Reason: Keep Vein Open Last Admin: 03/31/19 00:00 Dose: 500 units Lactobacillus Rhamnosus (Culturelle) 1 cap PO BID COUNT INCLUDES THE [facility] Last Admin: 04/07/19 08:03 Dose: 1 cap Latanoprost (Xalatan 0.005% Ophth Soln) 0 ml EYEBOTH BEDTIME WILI Last Admin: 04/06/19 21:29 Dose: 1 drop Levothyroxine Sodium (Synthroid) 88 mcg PO ACBREAKFAST COUNT INCLUDES THE [facility] Last Admin: 04/07/19 08:03 Dose: 88 mcg Lorazepam (Ativan) 1 mg IVPUSH Q1H PRN PRN Reason: Anxiety Last Admin: 04/03/19 00:50 Dose: 1 mg Lorazepam (Ativan) 1 mg PO BID COUNT INCLUDES THE [facility] Last Admin: 04/07/19 08:15 Dose: 1 mg Magnesium Oxide (Magnesium Oxide) 400 mg PO BID COUNT INCLUDES THE [facility] Last Admin: 04/07/19 08:06 Dose: 400 mg Scopolamine Patch (Check) 1 each TOP DAILY COUNT INCLUDES THE [facility] Last Admin: 04/07/19 10:01 Dose: Not Given Clozapine 100mg (Ptom) 0 mg PO BEDTIME COUNT INCLUDES THE [facility] Last Admin: 04/06/19 21:26 Dose: 450 mg Nystatin (Nystop) 0 gm TOP QID COUNT INCLUDES THE [facility] Last Admin: 04/07/19 11:27 Dose: 1 applic Ondansetron HCl (Zofran) 4 mg IVPUSH Q4H PRN PRN Reason: Nausea/Vomiting Last Admin: 03/18/19 17:31 Dose: 4 mg Polyethylene Glycol (Miralax) 17 gm PO DAILY COUNT INCLUDES THE [facility] Last Admin: 04/07/19 11:26 Dose: Not Given Rivaroxaban (Xarelto) 15 mg PO ONETIME ONE Stop: 04/07/19 12:31 Senna/Docusate Sodium (Senna Plus) 1 tab PO DAILY COUNT INCLUDES THE [facility] Last Admin: 04/07/19 08:06 Dose: 1 tab Sodium Chloride (Joseph 128 5% Ophth Soln) 0 ml EYEBOTH QID COUNT INCLUDES THE [facility] Last Admin: 04/07/19 11:27 Dose: 1 ea Sodium Chloride (Sodium Chloride 0.9%) 3 ml INH ASDIRECTED PRN PRN Reason: mix with racepinephrine neb Last Admin: 03/28/19 00:35 Dose: 3 ml Zinc Acetate/Diphenhydramine (Banophen Anti-Itch 2% Crm) 0 gm TOP QID PRN PRN Reason: Perineal Comfort Measure Discontinued Medications Acetylcysteine (Mucomyst 20%) 400 mg INH BIDRT COUNT INCLUDES THE [facility] Last Admin: 03/12/19 07:48 Dose: 200 mg Acetylcysteine (Mucomyst 20%) 200 mg INH BIDRT COUNT INCLUDES THE [facility] Stop: 03/12/19 23:59 Last Admin: 03/12/19 20:44 Dose: 200 mg Acetylcysteine (Mucomyst 20%) 200 mg NEB BIDRT COUNT INCLUDES THE [facility] Last Admin: 03/27/19 07:06 Dose: 200 mg Atropine Sulfate (Atropine 1%) 0 ml SL BID COUNT INCLUDES THE [facility] Last Admin: 03/29/19 09:06 Dose: 4 drop Bisacodyl (Dulcolax) 10 mg PO BID COUNT INCLUDES THE [facility] Last Admin: 03/17/19 20:35 Dose: Not Given Bisacodyl (Dulcolax) 10 mg RECTAL ONETIME ONE Stop: 03/17/19 17:01 Last Admin: 03/17/19 17:10 Dose: 10 mg Bupivacaine HCl (Marcaine 0.5%) Confirm Administered Dose 50 ml .ROUTE .STK-MED ONE Stop: 03/10/19 06:23 Bupivacaine HCl (Marcaine 0.5%) Confirm Administered Dose 50 ml .ROUTE .STK-MED ONE Stop: 03/11/19 07:19 Last Admin: 03/11/19 07:28 Dose: 15 ml Ropivacaine 36 ml/Dexamethasone 8 mg/Epinephrine HCl 0.4 mg/ Sodium Chloride 41.6 ml 0 ml NERVRT ASDIRECTED COUNT INCLUDES THE [facility] Last Admin: 03/08/19 15:05 Dose: 80 syringe Ropivacaine 36 ml/Dexamethasone 8 mg/Epinephrine HCl 0.4 mg/ Sodium Chloride 41.6 ml 0 ml NERVRT ASDIRECTED COUNT INCLUDES THE [facility] Last Admin: 03/11/19 07:41 Dose: 80 syringe Dexamethasone (Dexamethasone) Confirm Administered Dose 4 mg .ROUTE .STK-MED ONE Stop: 03/08/19 12:18 Dextrose (Glutose 15) 15 gm PO ASDIRECTED PRN PRN Reason: HYPOGLYCEMIA Dextrose/Water (Dextrose 50% In Water) 50 ml IVPUSH ASDIRECTED PRN PRN Reason: HYPOGLYCEMIA Dimethicone/Zinc Oxide (Rash Relief-Zinc Oxide [place]) 0 gm TOP ASDIRECTED PRN PRN Reason: Perineal Comfort Measure Last Admin: 03/29/19 15:40 Dose: 6 spray Diphenhydramine HCl (Benadryl) 25 mg IVPUSH Q6H PRN PRN Reason: Itching Diphenhydramine HCl (Benadryl) 25 mg PO Q6H PRN PRN Reason: Itching Diphenhydramine HCl (Benadryl) 25 mg IVPUSH Q4H PRN PRN Reason: Itching Last Admin: 04/01/19 01:49 Dose: 25 mg Docusate Sodium (Colace) 100 mg PO BID WILI Last Admin: 04/06/19 08:24 Dose: 100 mg Fentanyl (Sublimaze) Confirm Administered Dose 250 mcg .ROUTE .STK-MED ONE Stop: 03/08/19 12:19 Furosemide (Lasix) 20 mg IVPUSH ONETIME ONE Stop: 03/09/19 21:56 Last Admin: 03/09/19 22:10 Dose: 20 mg Furosemide (Lasix) Confirm Administered Dose 20 mg .ROUTE .STK-MED ONE Stop: 03/09/19 22:05 Last Admin: 03/09/19 22:10 Dose: Not Given Furosemide (Lasix) 20 mg IVPUSH ONETIME ONE Stop: 03/10/19 06:33 Last Admin: 03/10/19 07:20 Dose: 20 mg Furosemide (Lasix) 20 mg IVPUSH ONETIME ONE Stop: 03/12/19 18:01 Last Admin: 03/12/19 17:43 Dose: 20 mg Furosemide (Lasix) 20 mg IVPUSH ONETIME ONE Stop: 03/12/19 07:31 Last Admin: 03/12/19 07:44 Dose: 20 mg Furosemide (Lasix) 10 mg IVPUSH Q12H WILI Stop: 03/13/19 21:01 Last Admin: 03/13/19 20:29 Dose: 10 mg Furosemide (Lasix) 20 mg IVPUSH NOW ONE Stop: 03/15/19 11:31 Last Admin: 03/15/19 11:38 Dose: 20 mg Furosemide (Lasix) 20 mg IVPUSH ONETIME ONE Stop: 03/16/19 13:31 Last Admin: 03/16/19 14:18 Dose: 20 mg Furosemide (Lasix) 20 mg IVPUSH NOW ONE Stop: 03/17/19 09:16 Last Admin: 03/17/19 09:47 Dose: 20 mg Furosemide (Lasix) 20 mg IVPUSH Q12H WILI Stop: 03/22/19 21:31 Last Admin: 03/22/19 22:10 Dose: 20 mg Furosemide (Lasix) 20 mg IVPUSH Q12H WILI Stop: 03/23/19 22:01 Last Admin: 03/23/19 22:47 Dose: 20 mg Furosemide (Lasix) 20 mg IVPUSH Q8H COUNT INCLUDES THE [facility] Stop: 03/25/19 02:01 Last Admin: 03/25/19 02:11 Dose: 20 mg Furosemide (Lasix) 20 mg IVPUSH Q12H COUNT INCLUDES THE [facility] Last Admin: 03/25/19 21:32 Dose: 20 mg Furosemide (Lasix) 20 mg IVPUSH Q8H COUNT INCLUDES THE [facility] Last Admin: 03/28/19 09:14 Dose: 20 mg Furosemide (Lasix) 20 mg IVPUSH Q12H COUNT INCLUDES THE [facility] Last Admin: 03/28/19 21:46 Dose: 20 mg Furosemide (Lasix) 20 mg IVPUSH ONETIME ONE Stop: 04/03/19 17:42 Last Admin: 04/03/19 18:14 Dose: 20 mg Glucagon (Glucagen) 1 mg IM ASDIRECTED PRN PRN Reason: HYPOGLYCEMIA Glycopyrrolate (Robinul) Confirm Administered Dose 1 mg .ROUTE .STK-MED ONE Stop: 03/08/19 12:18 Haloperidol Lactate (Haldol) 5 mg IVPUSH BID COUNT INCLUDES THE [facility] Last Admin: 03/09/19 09:06 Dose: 5 mg Haloperidol Lactate (Haldol) 2.5 mg IVPUSH BID COUNT INCLUDES THE [facility] Last Admin: 03/31/19 08:37 Dose: 2.5 mg Heparin Sodium (Porcine) (Heparin Sodium) Confirm Administered Dose 5,000 units .ROUTE .STK-MED ONE Stop: 03/10/19 07:04 Last Admin: 03/10/19 07:57 Dose: Not Given Heparin Sodium (Porcine) (Heparin Lock Flush 100 Units/Ml) Confirm Administered Dose 1,000 units .ROUTE .STK-MED ONE Stop: 03/11/19 07:32 Last Admin: 03/11/19 08:31 Dose: Not Given Heparin Sodium (Porcine) (Heparin Sodium) Confirm Administered Dose 5,000 units .ROUTE .[facility] ONE Stop: 03/18/19 23:03 Last Admin: 03/19/19 02:36 Dose: Not Given Hydromorphone HCl (Dilaudid [employer] 15 Mg In Ns 30 Ml) 0 mg IV ASDIRECTED PRN; Protocol PRN Reason: PAIN Last Admin: 03/16/19 16:43 Dose: 15 mg Sodium Chloride (Normal Saline) 1,000 mls @ 1,000 mls/hr IV ASDIRECTED COUNT INCLUDES THE [facility] Last Admin: 03/08/19 10:02 Dose: 1,000 mls/hr Ampicillin Sodium/Sulbactam (Sodium 1.5 gm/ Sodium Chloride) 50 mls @ 100 mls/ hr IV Q6H COUNT INCLUDES THE [facility] Last Admin: 03/08/19 13:30 Dose: 100 mls/hr Aztreonam 1 gm/ Sodium (Chloride) 50 mls @ 100 mls/hr IV Q12H COUNT INCLUDES THE [facility] Last Admin: 03/08/19 13:30 Dose: 100 mls/hr Lactated Ringer's (Ringers, Lactated) 1,000 mls @ 150 mls/hr IV ASDIRECTED COUNT INCLUDES THE [facility] Last Admin: 03/08/19 13:31 Dose: 150 mls/hr Lactated Ringer's (Ringers, Lactated) Confirm Administered Dose 1,000 mls @ as directed .ROUTE .[facility] ONE Stop: 03/08/19 15:16 Lactated Ringer's (Ringers, Lactated) 1,000 mls @ 100 mls/hr IV ASDIRECTED COUNT INCLUDES THE [facility] Last Admin: 03/09/19 03:26 Dose: 100 mls/hr Dextrose/Lactated Ringer's (Dextrose 5%-Lactated Ringers) 1,000 mls @ 100 mls/ hr IV ASDIRECTED COUNT INCLUDES THE [facility] Stop: 03/12/19 11:59 Last Admin: 03/11/19 23:35 Dose: 100 mls/hr Ampicillin Sodium/Sulbactam (Sodium 3 gm/ Sodium Chloride) 100 mls @ 200 mls/ hr IV Q6H COUNT INCLUDES THE [facility] Last Admin: 03/13/19 05:19 Dose: 200 mls/hr Aztreonam 1 gm/ Sodium (Chloride) 50 mls @ 100 mls/hr IV Q8H WILI Last Admin: 03/13/19 04:23 Dose: 100 mls/hr Valproic Acid 500 mg/ Sodium (Chloride) 55 mls @ 55 mls/hr IV Q8H WILI Last Admin: 03/31/19 04:58 Dose: 55 mls/hr Potassium Chloride 20 meq/Lidocaine HCl 2 ml/ Sodium Chloride 112 mls @ 56 mls/ hr IV Q2H WILI Stop: 03/09/19 15:59 Last Admin: 03/09/19 17:30 Dose: 56 mls/hr Lactated Ringer's (Ringers, Lactated) 750 mls @ 750 mls/hr IV BOLUS ONE Stop: 03/09/19 16:25 Last Admin: 03/09/19 15:53 Dose: 750 mls/hr Lactated Ringer's (Ringers, Lactated) 750 mls @ 999 mls/hr IV BOLUS ONE Stop: 03/09/19 21:15 Last Admin: 03/09/19 21:08 Dose: 999 mls/hr Heparin Sodium (Porcine) 5,000 (units/ Sodium Chloride) 501 mls @ 5 mls/hr IV ASDIRECTED COUNT INCLUDES THE [facility] Last Admin: 03/12/19 13:58 Dose: 5 mls/hr Propofol (Diprivan 100 Ml) 100 mls @ 2.191 mls/hr IV TITRATE [facility]ILI; Protocol Last Titration: 03/15/19 07:18 Dose: 0 mcg/kg/min, 0 mls/hr Linezolid 600 mg/ Premix 300 mls @ 300 mls/hr IV Q12H [facility] Last Admin: 03/11/19 21:53 Dose: 300 mls/hr Potassium Chloride 20 meq/Lidocaine HCl 2 ml/ Sodium Chloride 112 mls @ 56 mls/ hr IV Q2H [facility] Stop: 03/10/19 16:29 Last Admin: 03/10/19 16:07 Dose: 56 mls/hr Potassium Chloride 20 meq/ (Premix) 0 mls @ 50 mls/hr IV Q2H [facility] Stop: 03/11/19 07:28 Last Admin: 03/11/19 07:32 Dose: 50 mls/hr Magnesium Sulfate 2 gm/ Premix 50 mls @ 25 mls/hr IV Q6H [facility] Last Admin: 03/12/19 04:27 Dose: 25 mls/hr Potassium Phosphate 20 mmole/ (Sodium Chloride) 256.6667 mls @ 85 mls/hr IV Q3H COUNT INCLUDES THE [facility] Stop: 03/11/19 17:59 Last Admin: 03/11/19 14:42 Dose: 85 mls/hr Multivitamins/Minerals 10 ml/Chromium/Copper/Manganese/Seleni/Zn 1 ml/ Amino Ac/ Electrol/Dextrose/Calcium 1,011 mls @ 82 mls/hr IV .BY DURATION COUNT INCLUDES THE [facility] Last Admin: 03/13/19 12:34 Dose: 82 mls/hr Amino Ac/Electrol/Dextrose/Calcium (Clinimix E 12/08) 1,000 mls @ 82 mls/hr IV .BY DURATION COUNT INCLUDES THE [facility] Last Admin: 03/14/19 01:20 Dose: 82 mls/hr Sodium Chloride (Normal Saline) 1,000 mls @ 20 mls/hr IV ASDIRECTED COUNT INCLUDES THE [facility] Last Admin: 03/13/19 22:58 Dose: 20 mls/hr Potassium Phosphate 20 mmole/ (Sodium Chloride) 256.6667 mls @ 85.556 mls/hr IV Q3H COUNT INCLUDES THE [facility] Stop: 03/12/19 16:59 Last Admin: 03/12/19 14:49 Dose: 85.556 mls/hr Potassium Chloride 20 meq/ (Premix) 100 mls @ 50 mls/hr IV ONETIME ONE Stop: 03/13/19 10:59 Last Admin: 03/13/19 09:29 Dose: 50 mls/hr Potassium Phosphate 30 mmole/ (Sodium Chloride) 110 mls @ 30 mls/hr IV ONETIME ONE Stop: 03/13/19 14:39 Last Admin: 03/13/19 12:14 Dose: 30 mls/hr Linezolid 600 mg/ Premix 300 mls @ 300 mls/hr IV Q12H COUNT INCLUDES THE [facility] Last Admin: 03/20/19 09:52 Dose: 300 mls/hr Magnesium Sulfate 2 gm/ Premix 50 mls @ 25 mls/hr IV Q6H COUNT INCLUDES THE [facility] Stop: 03/16/19 03:59 Last Admin: 03/16/19 01:59 Dose: 25 mls/hr Azithromycin 250 mg/ Sodium (Chloride) 150 mls @ 150 mls/hr IV Q12H COUNT INCLUDES THE [facility] Azithromycin 250 mg/ Sodium (Chloride) 150 mls @ 150 mls/hr IV Q24H COUNT INCLUDES THE [facility] Last Admin: 03/17/19 11:28 Dose: 150 mls/hr Multivitamins/Minerals 10 ml/Chromium/Copper/Manganese/Seleni/Zn 1 ml/ Amino Ac/ Electrol/Dextrose/Calcium 1,011 mls @ 82 mls/hr IV .BY DURATION COUNT INCLUDES THE [facility] Stop: 03/18/19 14:59 Last Admin: 03/17/19 14:26 Dose: 82 mls/hr Amino Ac/Electrol/Dextrose/Calcium (Clinimix E 5/15) 1,000 mls @ 82 mls/hr IV .BY DURATION COUNT INCLUDES THE [facility] Stop: 03/18/19 14:59 Last Admin: 03/18/19 03:38 Dose: 82 mls/hr Multivitamins/Minerals 10 ml/Chromium/Copper/Manganese/Seleni/Zn 1 ml/ Amino Ac/ Electrol/Dextrose/Calcium 1,011 mls @ 80 mls/hr IV .BY DURATION COUNT INCLUDES THE [facility] Last Admin: 03/18/19 16:05 Dose: 40 mls/hr Amino Ac/Electrol/Dextrose/Calcium (Clinimix E 5/15) 1,000 mls @ 40 mls/hr IV .BY DURATION COUNT INCLUDES THE [facility] Piperacillin Sod/Tazobactam (Sod 3.375 gm/ Sodium Chloride) 50 mls @ 100 mls/ hr IV Q6H COUNT INCLUDES THE [facility] Last Admin: 03/19/19 04:17 Dose: 100 mls/hr Sodium Chloride (Normal Saline) Confirm Administered Dose 50 mls @ as directed .ROUTE .STK-MED ONE Stop: 03/18/19 21:35 Last Admin: 03/18/19 21:40 Dose: Not Given Propofol (Diprivan 100 Ml) Confirm Administered Dose 100 mls @ as directed .ROUTE .STK-MED ONE Stop: 03/18/19 23:04 Last Admin: 03/19/19 01:04 Dose: Not Given Propofol (Diprivan 100 Ml) 100 mls @ 2.195 mls/hr IV TITRATE WILI; Protocol Last Titration: 03/27/19 07:00 Dose: 0 mcg/kg/min, 0 mls/hr Heparin Sodium (Porcine) 5,000 (units/ Sodium Chloride) 501 mls @ 0.1 mls/hr IV ASDIRECTED COUNT INCLUDES THE [facility] Last Admin: 03/27/19 15:35 Dose: 1 units/hr, 0.1 mls/hr Sodium Chloride (Normal Saline) 500 mls @ 999 mls/hr IV .BOLUS ONE Stop: 03/19/19 00:00 Last Admin: 03/19/19 00:00 Dose: 999 mls/hr Sodium Chloride (Normal Saline) 1,000 mls @ 20 mls/hr IV ASDIRECTED COUNT INCLUDES THE [facility] Last Admin: 03/30/19 23:53 Dose: 20 mls/hr Sodium Chloride (Normal Saline) 100 mls @ 4 mls/sec IV ASDIRECTED COUNT INCLUDES THE [facility] Stop: 03/19/19 10:00 Last Admin: 03/19/19 07:45 Dose: 4 mls/sec Multivitamins/Minerals 10 ml/Chromium/Copper/Manganese/Seleni/Zn 1 ml/ Amino Ac/ Electrol/Dextrose/Calcium 1,011 mls @ 80 mls/hr IV .BY DURATION COUNT INCLUDES THE [facility] Stop: 03/19/19 20:00 Amino Ac/Electrol/Dextrose/Calcium (Clinimix E 5/15) 1,000 mls @ 80 mls/hr IV .BY DURATION COUNT INCLUDES THE [facility] Stop: 03/19/19 20:00 Last Admin: 03/19/19 08:12 Dose: 80 mls/hr Piperacillin/Tazobactam/ (Dextrose 3.375 gm/ Premix) 50 mls @ 100 mls/hr IV Q6H COUNT INCLUDES THE [facility] Last Admin: 03/25/19 09:29 Dose: 100 mls/hr Multivitamins/Minerals 10 ml/Chromium/Copper/Manganese/Seleni/Zn 1 ml/ Amino Ac/ Electrol/Dextrose/Calcium 1,011 mls @ 82 mls/hr IV .BY DURATION COUNT INCLUDES THE [facility] Stop: 03/23/19 20:00 Last Admin: 03/22/19 21:45 Dose: 82 mls/hr Amino Ac/Electrol/Dextrose/Calcium (Clinimix E 5/15) 1,000 mls @ 82 mls/hr IV .BY DURATION COUNT INCLUDES THE [facility] Stop: 03/23/19 20:00 Last Admin: 03/23/19 11:17 Dose: Not Given Albumin Human (Albumin 25%) 25 gm in 100 mls @ 25 mls/hr IV Q24H COUNT INCLUDES THE [facility] Stop: 03/23/19 11:59 Last Admin: 03/23/19 08:20 Dose: 25 mls/hr Albumin Human (Albumin 25%) 25 gm in 100 mls @ 25 mls/hr IV Q24H COUNT INCLUDES THE [facility] Stop: 03/23/19 15:59 Last Admin: 03/23/19 11:22 Dose: 25 mls/hr Azithromycin 250 mg/ Sodium (Chloride) 150 mls @ 150 mls/hr IV Q24H COUNT INCLUDES THE [facility] Last Admin: 03/24/19 11:55 Dose: 150 mls/hr Potassium Chloride 20 meq/ (Premix) 100 mls @ 50 mls/hr IV ONETIME ONE Stop: 03/21/19 10:59 Last Admin: 03/21/19 09:29 Dose: 50 mls/hr Potassium Chloride 40 meq/ (Premix) 100 mls @ 25 mls/hr IV ONETIME ONE Stop: 03/22/19 13:59 Last Admin: 03/22/19 10:01 Dose: 25 mls/hr Magnesium Sulfate 2 gm/ Premix 50 mls @ 25 mls/hr IV Q6H COUNT INCLUDES THE [facility] Stop: 03/26/19 03:59 Last Admin: 03/24/19 08:07 Dose: 25 mls/hr Potassium Chloride 40 meq/ (Premix) 100 mls @ 25 mls/hr IV ONETIME ONE Stop: 03/23/19 13:59 Last Admin: 03/23/19 09:22 Dose: 25 mls/hr Multivitamins/Minerals 10 ml/Chromium/Copper/Manganese/Seleni/Zn 1 ml/ Amino Ac/ Electrol/Dextrose/Calcium 1,011 mls @ 82 mls/hr IV .BY DURATION COUNT INCLUDES THE [facility] Last Admin: 04/02/19 02:05 Dose: 82 mls/hr Amino Ac/Electrol/Dextrose/Calcium (Clinimix E 5/15) 1,000 mls @ 82 mls/hr IV .BY DURATION COUNT INCLUDES THE [facility] Last Admin: 04/01/19 14:27 Dose: 82 mls/hr Potassium Chloride 40 meq/ (Premix) 100 mls @ 25 mls/hr IV ONETIME ONE Stop: 03/24/19 13:59 Last Admin: 03/24/19 09:54 Dose: 25 mls/hr Potassium Chloride 40 meq/ (Premix) 100 mls @ 25 mls/hr IV ONETIME ONE Stop: 03/25/19 13:59 Last Admin: 03/25/19 10:32 Dose: 25 mls/hr Fat Emulsion Intravenous (Intralipid 20%) 100 mls @ 8.3 mls/hr IV Q48H COUNT INCLUDES THE [facility] Last Admin: 03/29/19 15:52 Dose: 8.3 mls/hr Magnesium Sulfate 2 gm/ Premix 50 mls @ 25 mls/hr IV Q6H [facility] Stop: 03/30/19 03:59 Last Admin: 03/30/19 03:14 Dose: 25 mls/hr Meropenem 1 gm/ Sodium (Chloride) 50 mls @ 100 mls/hr IV Q8H COUNT INCLUDES THE [facility] Last Admin: 04/03/19 08:02 Dose: 100 mls/hr Sodium Chloride (Normal Saline) 75 mls @ 3 mls/sec IV ASDIRECTED COUNT INCLUDES THE [facility] Last Admin: 03/30/19 10:36 Dose: 3 mls/sec Sodium Chloride (Normal Saline) 100 mls @ 3 mls/sec IV ONETIME ONE Stop: 03/30/19 10:27 Last Admin: 03/30/19 19:19 Dose: Not Given Magnesium Sulfate 2 gm/ Premix 50 mls @ 25 mls/hr IV Q6H COUNT INCLUDES THE [facility] Stop: 04/02/19 10:00 Last Admin: 04/02/19 09:24 Dose: 25 mls/hr Multivitamins/Minerals 10 ml/Chromium/Copper/Manganese/Seleni/Zn 1 ml/ Amino Ac/ Electrol/Dextrose/Calcium 1,011 mls @ 40 mls/hr IV .BY DURATION COUNT INCLUDES THE [facility] Stop: 04/03/19 13:00 Last Admin: 04/02/19 13:35 Dose: 40 mls/hr Amino Ac/Electrol/Dextrose/Calcium (Clinimix E 5/15) 1,000 mls @ 40 mls/hr IV .BY DURATION COUNT INCLUDES THE [facility] Stop: 04/03/19 13:00 Multivitamins/Minerals 10 ml/Chromium/Copper/Manganese/Seleni/Zn 1 ml/ Amino Ac/ Electrol/Dextrose/Calcium 1,011 mls @ 20 mls/hr IV .BY DURATION COUNT INCLUDES THE [facility] Last Admin: 04/03/19 15:23 Dose: 20 mls/hr Amino Ac/Electrol/Dextrose/Calcium (Clinimix E 5/15) 1,000 mls @ 20 mls/hr IV .BY DURATION COUNT INCLUDES THE [facility] Magnesium Sulfate 2 gm/ Premix 50 mls @ 25 mls/hr IV ONETIME ONE Stop: 04/03/19 11:59 Last Admin: 04/03/19 10:05 Dose: 25 mls/hr Insulin Glargine (Lantus Solostar) 10 units SUBCUT BID COUNT INCLUDES THE [facility] Last Admin: 03/16/19 09:27 Dose: 10 unit Insulin Glargine (Lantus Solostar) 14 units SUBCUT BID COUNT INCLUDES THE [facility] Last Admin: 03/18/19 09:06 Dose: 14 units Insulin Glargine (Lantus Solostar) 7 units SUBCUT BID COUNT INCLUDES THE [facility] Stop: 03/18/19 21:01 Last Admin: 03/18/19 21:25 Dose: Not Given Insulin Glargine (Lantus Solostar) 12 units SUBCUT BID COUNT INCLUDES THE [facility] Last Admin: 04/02/19 08:24 Dose: 12 units Insulin Glargine (Lantus Solostar) 14 units SUBCUT BID COUNT INCLUDES THE [facility] Last Admin: 04/03/19 08:26 Dose: 14 unit Insulin Glargine (Lantus Solostar) 10 units SUBCUT BID COUNT INCLUDES THE [facility] Last Admin: 04/04/19 10:00 Dose: 10 units Insulin Human Lispro (Humalog) 0 unit SUBCUT Q6H PRN; Protocol PRN Reason: MEDIUM CORRECTIONAL DOSING Last Admin: 03/14/19 17:42 Dose: 7 units Insulin Human Lispro (Humalog) 15 unit SUBCUT ONETIME ONE Stop: 03/14/19 12:05 Last Admin: 03/14/19 12:10 Dose: 15 units Insulin Human Lispro (Humalog) 0 unit SUBCUT ASDIRECTED COUNT INCLUDES THE [facility]; Protocol Last Admin: 04/02/19 08:26 Dose: 3 units Insulin Human Lispro (Humalog) 0 unit SUBCUT ONETIME ONE Stop: 03/15/19 00:16 Last Admin: 03/15/19 00:25 Dose: 12 units Insulin Human Lispro (Humalog) 0 unit SUBCUT QIDACANDBED COUNT INCLUDES THE [facility]; Protocol Last Admin: 04/05/19 07:42 Dose: Not Given Iohexol (Omnipaque-300) 100 ml IVPUSH . DIRECTED COUNT INCLUDES THE [facility] Iopamidol (Isovue-370 (76%)) 100 ml IV . DIRECTED COUNT INCLUDES THE [facility] Stop: 03/19/19 10:00 Last Admin: 03/19/19 07:45 Dose: 100 ml Iopamidol (Isovue-300 (61%)) 100 ml IV . DIRECTED PRN PRN Reason: RADIOLOGY EXAM Last Admin: 03/30/19 10:36 Dose: 100 ml Levothyroxine Sodium (Synthroid) 100 mcg IVPUSH DAILY COUNT INCLUDES THE [facility] Last Admin: 03/31/19 08:33 Dose: 100 mcg Lidocaine HCl (Xylocaine-Mpf 1%) 5 ml INJECT ONETIME ONE Stop: 03/11/19 05:30 Last Admin: 03/11/19 05:39 Dose: 2 ml Lidocaine/Epinephrine (Xylocaine 1% With Epinephrine 1:100,000) Confirm Administered Dose 50 ml .ROUTE .STK-MED ONE Stop: 03/10/19 06:23 Lidocaine/Epinephrine (Xylocaine 1% With Epinephrine 1:100,000) Confirm Administered Dose 50 ml .ROUTE .STK-MED ONE Stop: 03/11/19 07:19 Last Admin: 03/11/19 07:28 Dose: 15 ml Linezolid (Zyvox) 600 mg IRR .STK-MED ONE Stop: 03/11/19 07:39 Last Admin: 03/11/19 07:38 Dose: 600 mg Lorazepam (Ativan) 0.5 mg IVPUSH BID COUNT INCLUDES THE [facility] Last Admin: 03/09/19 09:09 Dose: 0.5 mg Lorazepam (Ativan) 0.5 mg IVPUSH Q4H PRN PRN Reason: Anxiety Last Admin: 03/27/19 10:07 Dose: 0.5 mg Lorazepam (Ativan) 0.25 mg IVPUSH BID COUNT INCLUDES THE [facility] Last Admin: 03/10/19 09:09 Dose: 0.25 mg Lorazepam (Ativan) 0.5 mg IVPUSH BID COUNT INCLUDES THE [facility] Last Admin: 03/30/19 21:01 Dose: 0.5 mg Lorazepam (Ativan) 1 mg PO BID COUNT INCLUDES THE [facility] Last Admin: 04/05/19 22:37 Dose: 1 mg Meropenem (Merrem) Confirm Administered Dose 500 mg .ROUTE .STK-MED ONE Stop: 03/08/19 12:05 Last Admin: 03/08/19 14:00 Dose: 500 mg Meropenem (Merrem) Confirm Administered Dose 500 mg .ROUTE .STK-MED ONE Stop: 03/10/19 06:23 Meropenem (Merrem) Confirm Administered Dose 500 mg .ROUTE .STK-MED ONE Stop: 03/11/19 06:45 Last Admin: 03/11/19 07:38 Dose: 500 mg Methylprednisolone Sodium Succinate (Solu-Medrol) 40 mg IVPUSH Q6H COUNT INCLUDES THE [facility] Last Admin: 03/20/19 09:50 Dose: 40 mg Methylprednisolone Sodium Succinate (Solu-Medrol) 40 mg IVPUSH Q6H COUNT INCLUDES THE [facility] Last Admin: 04/01/19 10:25 Dose: 40 mg Methylprednisolone Sodium Succinate (Solu-Medrol) 40 mg IVPUSH Q12H COUNT INCLUDES THE [facility] Last Admin: 04/01/19 21:19 Dose: 40 mg Metoprolol Tartrate (Lopressor) 5 mg IV Q6H COUNT INCLUDES THE [facility] Last Admin: 03/26/19 07:56 Dose: Not Given Metoprolol Tartrate (Lopressor) 2.5 mg IV Q6H COUNT INCLUDES THE [facility] Last Admin: 03/29/19 05:23 Dose: 2.5 mg Metoprolol Tartrate (Lopressor) 5 mg IV Q6H COUNT INCLUDES THE [facility] Last Admin: 03/31/19 04:53 Dose: 5 mg Morphine Sulfate (Morphine) 2 mg IVPUSH Q1H PRN PRN Reason: Other Last Admin: 03/31/19 01:30 Dose: 2 mg Naloxone HCl (Narcan) 0.1 mg IV ASDIRECTED PRN PRN Reason: decreased respiratory rate Neostigmine Methylsulfate (Neostigmine) Confirm Administered Dose 5 mg .ROUTE .STK-MED ONE Stop: 03/08/19 12:18 Non-Formulary Medication (Total Parenteral Nutrition, Central) 1,000 ml .XX .Continue Order COUNT INCLUDES THE [facility] Stop: 03/22/19 12:00 Non-Formulary Medication (Total Parenteral Nutrition, Central) 1,000 ml .XX .Continue Order COUNT INCLUDES THE [facility] Stop: 03/23/19 12:00 Non-Formulary Medication (Total Parenteral Nutrition, Central) 1,000 ml .XX .Continue Order COUNT INCLUDES THE [facility] Stop: 03/24/19 15:00 Non-Formulary Medication (Total Parenteral Nutrition, Central) 1,000 ml .XX .Continue Order COUNT INCLUDES THE [facility] Stop: 03/26/19 12:00 Non-Formulary Medication (Total Parenteral Nutrition, Central) 0 ml IV ASDIRECTED COUNT INCLUDES THE [facility] Stop: 03/31/19 13:01 Non-Formulary Medication (Total Parenteral Nutrition, Central) 1,000 ml .XX .Continue Order COUNT INCLUDES THE [facility] Stop: 04/01/19 10:00 Non-Formulary Medication (Total Parenteral Nutrition, Central) 1,000 ml .XX .Continue Order COUNT INCLUDES THE [facility] Stop: 04/02/19 10:00 Non-Formulary Medication (Total Parenteral Nutrition, Central) 1,000 ml .XX .Continue Order COUNT INCLUDES THE [facility] Stop: 04/03/19 10:00 Non-Formulary Medication (Total Parenteral Nutrition, Central) 1,000 ml .XX .Continue Order COUNT INCLUDES THE [facility] Stop: 04/04/19 10:00 Nystatin (Nystop) 0 gm TOP QID COUNT INCLUDES THE [facility] Last Admin: 03/31/19 11:05 Dose: 1 applic Ondansetron HCl (Zofran) Confirm Administered Dose 4 mg .ROUTE .STK-MED ONE Stop: 03/08/19 12:18 Ondansetron HCl (Zofran) 4 mg IVPUSH Q6H PRN PRN Reason: Nausea/Vomiting Pantoprazole Sodium (Protonix Iv) 40 mg IV Q24H COUNT INCLUDES THE [facility] Last Admin: 03/30/19 17:44 Dose: 40 mg Piperacillin Sod/Tazobactam Sod (Zosyn) Confirm Administered Dose 3.375 gm .ROUTE .STK-MED ONE Stop: 03/18/19 21:34 Last Admin: 03/18/19 21:40 Dose: Not Given Propofol (Diprivan 20 Ml) Confirm Administered Dose 200 mg .ROUTE .STK-MED ONE Stop: 03/08/19 12:18 Propofol (Diprivan 20 Ml) Confirm Administered Dose 200 mg .ROUTE .STK-MED ONE Stop: 03/10/19 07:33 Racepinephrine (S-2 2.25%) 0.5 ml NEB Q2H PRN PRN Reason: Shortness of Breath Last Admin: 03/28/19 00:32 Dose: 0.5 ml Rocuronium Callery (Zemuron) Confirm Administered Dose 50 mg .ROUTE .STK-MED ONE Stop: 03/08/19 12:18 Scopolamine (Transderm-Scop) 1.5 mg TRDERM Q72H COUNT INCLUDES THE [facility] Last Admin: 03/28/19 10:35 Dose: 1.5 mg Sodium Chloride (Saline Flush) 10 ml FLUSH ONETIME ONE Stop: 03/30/19 10:02 Last Admin: 03/30/19 10:35 Dose: 10 ml Sodium Chloride (Saline Flush) 10 ml FLUSH ONETIME PRN PRN Reason: PER RADIOLOGY PROTOCOL Succinylcholine Chloride (Quelicin) Confirm Administered Dose 200 mg .ROUTE .STK -MED ONE Stop: 03/08/19 12:18 Succinylcholine Chloride (Quelicin) Confirm Administered Dose 200 mg .ROUTE .STK -MED ONE Stop: 03/10/19 07:33 - Exam Quality Assessment: Denies: Supplemental Oxygen General: Reports: Alert, Cooperative, No Acute Distress HEENT: Reports: Pupils Equal Lungs: Reports: Normal Respiratory Effort Cardiovascular: Reports: Regular Rate, Regular Rhythm GI/Abdominal Exam: Normal Bowel Sounds, Soft, No Distention, Tender (very mild generalized ) Extremities: No Pedal Edema Skin: Reports: Warm, Dry Psy/Mental Status: Reports: Alert. Denies: Agitated *Q Meaningful Use (DIS) - VTE *Q VTE Pharmacological Contraindications *Q: Patient Scheduled Surgery
[2019-04-07] MEDS ORDERED: Rivaroxaban 15 MG Tab PO ONE (12:30)
--- NOTE | 2019-04-07 13:32 | CRLUS ---
INDICATION: Right arm swelling ;PICC line on the right side. COMPARISON: CT chest without intravenous contrast March 30, 2019; chest radiograph March 30, 2019. TECHNIQUE: Duplex ultrasound evaluation venous system right lower extremity; color Doppler duplex assessment. Findings: Occlusive thrombus right axillary vein and the right brachial vein. Occlusive thrombus right basilic vein with a PICC line in place. The right cephalic vein is unremarkable. The right internal jugular vein and the subclavian vein are unremarkable. IMPRESSION: 1. Deep vein thrombosis right axillary vein and right brachial vein. 2. Thrombosed right basilic vein with a PICC line in place. 3. Dr. Farhan Nj was paged at 1:29 p.m. Dictated by Geni Torrez MD @ Apr 07 2019 1:20PM Signed by Dr. Geni Torrez @ Apr 07 2019 1:31PM
--- NOTE | 2019-04-08 07:54 | PN ---
DATE OF SERVICE: 03/31/2019 The patient has been afebrile with stable vital signs. He appeared to be somewhat under- medicated from a psych standpoint, Dr. Jaffe is addressing that. Otherwise, NG output remains relatively scant, and we will try getting that out today. They were able to get a PICC line in last night, so we will begin trying to feed him. He essentially needs to be in upright position during the feeding phase. Otherwise, continue TPN and present management with the assistance of Dr. Jaffe. Haider Monae MD /[id number]
== END 2019-04-07 14:00 | DRG 329 ==
LOC: JP.ED 09:23 → JP.MS 11:55 → JP.ICU 17:24 → JP.MS 04-03 11:43
PROVIDERS: ADMIT Hospitalist; ATTEND Internal Medicine
PROC: 0DB80ZZ Excision of Small Intestine, Open Approach (ICD-10-PCS; 2019-03-08)
PROC: 0DBL0ZZ Excision of Transverse Colon, Open Approach (ICD-10-PCS; 2019-03-08)
PROC: 0W9G00Z Drainage of Peritoneal Cavity with Drainage Device, Open Approach (ICD-10-PCS; 2019-03-08)
PROC: 0DNW0ZZ Release Peritoneum, Open Approach (ICD-10-PCS; 2019-03-08)
PROC: 05PYX3Z Removal of Infusion Device from Upper Vein, External Approach (ICD-10-PCS; 2019-03-08)
PROC: 05H533Z Insertion of Infusion Device into Right Subclavian Vein, Percutaneous Approach (ICD-10-PCS; 2019-03-08)
PROC: 03HB33Z Insertion of Infusion Device into Right Radial Artery, Percutaneous Approach (ICD-10-PCS; 2019-03-10)
PROC: 0BH17EZ Insertion of Endotracheal Airway into Trachea, Via Natural or Artificial Opening (ICD-10-PCS; 2019-03-26)
PROC: 5A1955Z Respiratory Ventilation, Greater than 96 Consecutive Hours (ICD-10-PCS; 2019-03-26)
PROC: 3E0336Z Introduction of Nutritional Substance into Peripheral Vein, Percutaneous Approach (ICD-10-PCS; principal; 2019-04-03)
DX: K56.51 Intestinal adhesions [bands], with partial obstruction (principal); J96.02 Acute respiratory failure with hypercapnia; J96.01 Acute respiratory failure with hypoxia; K65.1 Peritoneal abscess; J69.0 Pneumonitis due to inhalation of food and vomit; N17.9 Acute kidney failure, unspecified; K55.9 Vascular disorder of intestine, unspecified; I82.621 Acute embolism and thrombosis of deep veins of right upper extremity; H54.7 Unspecified visual loss; H40.9 Unspecified glaucoma; I10 Essential (primary) hypertension; F41.9 Anxiety disorder, unspecified; F20.9 Schizophrenia, unspecified; E03.9 Hypothyroidism, unspecified; K63.89 Other specified diseases of intestine; R19.7 Diarrhea, unspecified; E87.6 Hypokalemia; E11.9 Type 2 diabetes mellitus without complications; Z79.899 Other long term (current) drug therapy; Z86.010 Personal history of colon polyps
CPT/HCPCS: 36415; 36430; 36600; 51701; 71045; 71045-26; 71260; 71275; 74019; 74021; 74176; 74177; 80048; 80053; 80164; 82150; 82803; 82962; 83605; 83690; 83735; 83880; 84100; 84132; 84439; 84443; 84481; 85025; 85027; 86850; 86900; 86901; 86920; 86922; 87040; 87070; 87075; 87077; 87205; 88305; 88307; 92610-GN; 93971-RT; 94002; 94003; 94640; 94660; 94762; 94799; 96360; 97110-GP; 97163-GP; 97164-GP; 97530-GP; 99284; 99285-25; A9270-GY; C1751; C9113; J0171; J0287; J0295; J0330; J0456; J1100; J1170; J1200; J1630; J1642; J1644; J1815; J1815-GY; J1940; J2001; J2020; J2060; J2185; J2270; J2405; J2543; J2704; J2710; J2795; J2920; J3010; J3475; J3480; J3490; J7030; J7040; J7042; J7050; J7120; J7620-GY; P9016; P9047; Q9967

== ENCOUNTER 2020-10-08 07:37 | Day surgery (SDC) | payer MEDICAID ==
[2020-10-08] MEDS ORDERED: fentaNYL 100 MCG/2 ML SDV ONE (07:49)
[2020-10-08] MEDS ORDERED: Propofol 200 MG/20 ML SDV ONE (07:49)
[2020-10-08] MEDS ORDERED: Sodium Chloride 0.9% 1,000 ML IV SCH (08:00)
[2020-10-08 12:57] VITALS: BP 162/94; PULSE 79
--- NOTE | 2020-10-08 14:19 | OR ---
DATE OF PROCEDURE: 10/08/2020 SURGEON: Adebayo Bahena MD PROCEDURE: Colonoscopy. FINDINGS: 1. Descending colon polyp, approximately 1 cm, completely removed using hot snare wire device. 2. Poor colon prep. COMPLICATIONS: None. MOLD SHEET CLEANER: None. ANESTHESIA: MAC. PREOPERATIVE DIAGNOSIS: Screening colonoscopy. POSTOPERATIVE DIAGNOSIS: Screening colonoscopy. RISKS: Risks, benefits, alternatives, limitations including but not limited to perforation, false positives, false negatives, and other risks not listed here were explained to the patient who wished to proceed. PROCEDURE IN DETAIL: The patient was placed in left lateral decubitus position. Digital rectal exam was performed without abnormality. Scope was introduced and advanced atraumatically to the ileocecal valve. Scope was brought back to the ascending, transverse, descending colon, and retroflexed. Prep was marginal, approximately 85% of the luminal surface could be seen with solid and liquid stool remaining. The aforementioned polyp was identified and completely removed. No evidence of old or new blood. No masses. No evidence of colitis. No abnormalities on retroflexion. The patient tolerated the procedure well. Adebayo Bahena MD /[id number]
== END 2020-10-08 12:00 ==
LOC: JP.SDS 07:37
PROVIDERS: ATTEND Surgery
DX: Z12.11 Encounter for screening for malignant neoplasm of colon (principal); D12.4 Benign neoplasm of descending colon; I10 Essential (primary) hypertension; E03.9 Hypothyroidism, unspecified
CPT/HCPCS: 45385; J2704; J3010; J7030

== ENCOUNTER 2023-07-02 18:54 | Inpatient (IN) | payer MEDICAID ==
[2023-07-02] MEDS ORDERED: Sodium Chloride 0.9% 1,000 ML IV ONE ×3 (18:59→22:12)
[2023-07-02] MEDS ORDERED: cefTRIAXone 2 GM in Sodium Chloride 0.9% 50 ML IV ONE (18:59)
[2023-07-02] MEDS ORDERED: Dexamethasone 4 MG/ML SDV IVPUSH ONE (19:00)
[2023-07-02] MEDS ORDERED: Sodium Chloride 0.9% 10 ML Syringe FLUSH PRN (19:02)
[2023-07-02 19:09] LABS: BASOPHILS PERCENT AUTO 0.5 % (0.1-1.3); HEMATOCRIT 35.3 % (38.4-49.7); HEMOGLOBIN 11.8 g/dL (12.9-16.9); IMMATURE GRAN ABSOLUTE AUTO 0.03 K/uL (0.00-0.23); IMMATURE GRAN PERCENT AUTO 0.7 % (0.0-0.7); LYMPHOCYTES ABSOLUTE AUTO 1.06 K/uL (0.8-3.3); LYMPHOCYTES PERCENT AUTO 24.6 % (11.4-47.7); MEAN CORPUSCULAR HEMOGLOBIN 29.3 pg (31.6-35.5); MEAN CORPUSCULAR HGB CONC 33.4 g/dL (31.6-35.5); MEAN CORPUSCULAR VOLUME 87.6 fL (81.4-99.0); MONOCYTES ABSOLUTE AUTO 0.54 K/uL (0.20-0.90); MONOCYTES PERCENT AUTO 12.5 % (3.3-12.6); NEUTROPHILS ABSOLUTE AUTO 2.66 K/uL (1.0-7.6); NEUTROPHILS PERCENT AUTO 61.7 % (40.0-78.1); PLATELET COUNT,PLT 133 K/uL (130-375); RED BLOOD CELL COUNT 4.03 M/uL (4.14-5.76); WHITE BLOOD CELL COUNT,WBC 4.3 K/uL (3.2-11.0)
[2023-07-02 19:11] LABS: BASE EXCESS VENOUS 5.1 mm/L; BICARBONATE,VENOUS 30.7 mmol/L; CARBOXYHEMOGLOBIN 2.3 % (0.0-1.6); METHEMOGLOBIN 1.4 %; O2 SATURATION VENOUS 59.8; OXYHEMOGLOBIN 57.6 %; PCO2 VENOUS 51.9 mm/Hg; PH,VENOUS 7.389 (7.350-7.450); TOTAL HEMOGLOBIN 12.4 g/dL (13.5-18.0)
[2023-07-02 19:12] LABS: BASOPHILS ABSOLUTE AUTO 0.02 K/uL (0.00-0.10)
[2023-07-02 19:14] LABS: LACTIC ACID 1.1 mmol/L (0.4-2.0); PO2 VENOUS 36.4 mm/Hg
[2023-07-02 19:32] LABS: INR 1.7; PROTHROMBIN TIME 16.9 sec (9.2-10.6); PTT,PARTIAL THROMBOPLSTIN TIME 43.9 sec (21.8-27.3)
[2023-07-02 19:34] LABS: A/G RATIO 1.1 (1.2-2.2); ALANINE AMINOTRANSFERASE,ALT 20 U/L (12-78); ALBUMIN 2.9 g/dL (3.4-5.0); ALKALINE PHOSPHATASE 64 U/L (46-116); ASPARTATE AMNIOTRANSFERASE,AST 45 U/L (15-37); BILIRUBIN TOTAL 0.3 mg/dL (0.2-1.0); BLOOD UREA NITROGEN,BUN 30 mg/dL (7-18); C-REACTIVE PROTEIN 7.84 mg/dL (<0.50); CALCIUM 7.6 mg/dL (8.5-10.1); CARBON DIOXIDE,CO2 30 mmol/L (21-32); CHLORIDE,CL 100 mmol/L (100-108); CREATININE 1.8 mg/dL (0.8-1.3); ESTIMATED GFR 42 mL/min (>60); GLUCOSE RANDOM 93 mg/dL (74-106); PROTEIN TOTAL,TP 5.6 g/dL (6.4-8.2); SODIUM,NA 140 mmol/L (140-148)
[2023-07-02] MEDS ORDERED: Potassium Chloride 20 MEQ Tab.ER PO ONE (19:53)
[2023-07-02 20:21] LABS: INFLUENZA A NAA NEGATIVE (NEGATIVE); INFLUENZA B NAA NEGATIVE (NEGATIVE); RESPIRATORY SYNCYTIAL VIR NAA NEGATIVE (NEGATIVE)
[2023-07-02 20:22] LABS: CORONAVIRUS COVID-19 NAA POSITIVE (NEGATIVE)
[2023-07-02 20:33] LABS: APPEARANCE,URINE CLEAR (CLEAR); BILIRUBIN,URINE NEGATIVE (NEGATIVE); COLOR,URINE YELLOW (YELLOW); GLUCOSE,URINE NEGATIVE (NEGATIVE); KETONES,URINE NEGATIVE (NEGATIVE); LEUKOCYTE ESTERASE,URINE NEGATIVE (NEGATIVE); NITRITE,URINE NEGATIVE (NEGATIVE); OCCULT BLOOD,URINE NEGATIVE (NEGATIVE); PROTEIN,URINE NEGATIVE (NEGATIVE); UROBILINOGEN,URINE 0.2 EU/dL (0.2-1.0)
[2023-07-02 20:42] LABS: AMORPHOUS SEDIMENT,URINE NOT SEEN; BACTERIA,URINE FEW; EPITHELIAL CELLS,URINE NOT SEEN; MUCUS,URINE NOT SEEN; RBC,URINE 0-5 (0-5); WBC,URINE 0-5 (0-5)
[2023-07-02] MEDS ORDERED: Doxycycline 100 MG in Sodium Chloride 0.9% 100 ML IV ONE (22:24)
[2023-07-03] MEDS ORDERED: Acetaminophen 325 MG Tab PO PRN (01:37)
[2023-07-03] MEDS ORDERED: Melatonin 3 MG Tab PO PRN (01:37)
[2023-07-03] MEDS ORDERED: Magnesium Hydroxide 400 MG/5 ML Susp 30 ML Cup PO PRN (01:37)
[2023-07-03] MEDS ORDERED: Ondansetron 4 MG/2 ML SDV IV PRN (01:37)
[2023-07-03] MEDS ORDERED: REMDESIVIR 200 MG in Sodium Chloride 0.9% 250 ML IV ONE (01:37)
[2023-07-03] MEDS ORDERED: LORazepam 1 MG Tab PO PRN (01:37)
[2023-07-03] MEDS ORDERED: Sodium Chloride 0.9% 1,000 ML IV SCH (01:37)
[2023-07-03] MEDS ORDERED: Ondansetron 4 MG Tab.DIS PO PRN (01:37)
[2023-07-03] MEDS: LORazepam 1 MG Tab PO SCH ×3 (02:07→20:47)
[2023-07-03] MEDS: Haloperidol 5 MG Tab PO SCH ×3 (02:08→20:47)
[2023-07-03] MEDS: Lactobacillus Rhamnosus GG (Probiotic) Cap PO SCH ×3 (02:08→20:47)
[2023-07-03] MEDS: Sodium Chloride 5% Ophth Soln 15 ML Bottle EYEBOTH SCH ×5 (02:08→22:04)
[2023-07-03] MEDS: Divalproex Sodium Delayed-Release 250 MG Tab.CR PO SCH ×2 (02:08→20:47)
[2023-07-03] MEDS: Sennosides 8.6 MG Tab PO SCH ×3 (02:09→20:31)
[2023-07-03 05:04] LABS: HEMATOCRIT 34.5 % (38.4-49.7); HEMOGLOBIN 11.7 g/dL (12.9-16.9); MEAN CORPUSCULAR HEMOGLOBIN 29.9 pg (31.6-35.5); MEAN CORPUSCULAR HGB CONC 33.9 g/dL (31.6-35.5); MEAN CORPUSCULAR VOLUME 88.2 fL (81.4-99.0); RED BLOOD CELL COUNT 3.91 M/uL (4.14-5.76); WHITE BLOOD CELL COUNT,WBC 9.3 K/uL (3.2-11.0)
[2023-07-03 05:28] LABS: A/G RATIO 0.8 (1.2-2.2); ALANINE AMINOTRANSFERASE,ALT 16 U/L (12-78); ALBUMIN 2.4 g/dL (3.4-5.0); ALKALINE PHOSPHATASE 60 U/L (46-116); ANION GAP 9.7 mmol/L (5.0-14.0); ASPARTATE AMNIOTRANSFERASE,AST 41 U/L (15-37); BILIRUBIN TOTAL 0.2 mg/dL (0.2-1.0); BLOOD UREA NITROGEN,BUN 23 mg/dL (7-18); CALCIUM 7.4 mg/dL (8.5-10.1); CARBON DIOXIDE,CO2 28 mmol/L (21-32); CHLORIDE,CL 106 mmol/L (100-108); CREATININE 1.5 mg/dL (0.8-1.3); EST CRCL DRUG DOSING (CG) 45.49 mL/min; ESTIMATED GFR 52 mL/min (>60); GLUCOSE RANDOM 135 mg/dL (74-106); POTASSIUM,K 3.6 mmol/L (3.6-5.2); PROTEIN TOTAL,TP 5.4 g/dL (6.4-8.2); SODIUM,NA 144 mmol/L (140-148)
[2023-07-03] MEDS ORDERED: Non-Formulary Medication 1 Each (Levothyroxine Sodium [Levothyroxine Sodium] 137 MCG Table PO SCH (07:30)
[2023-07-03] MEDS: Hydrochlorothiazide 25 MG Tab PO SCH (08:17)
[2023-07-03] MEDS: Rivaroxaban 10 MG Tab PO SCH (08:17)
[2023-07-03] MEDS: Atenolol 25 MG Tab PO SCH (08:18)
[2023-07-03] MEDS: Dexamethasone 2 MG Tab PO SCH (08:18)
[2023-07-03] MEDS: Doxazosin 4 MG Tab PO SCH (08:18)
[2023-07-03] MEDS: Polyethylene Glycol 3350 Powder 17 GM Packet PO SCH (08:18)
[2023-07-03] MEDS: Citalopram 10 MG Tab PO SCH (08:19)
[2023-07-03] MEDS: Levothyroxine 25 MCG Tab PO SCH (08:19)
[2023-07-03] MEDS: diphenhydrAMINE 25 MG Cap PO SCH (08:19)
[2023-07-03] MEDS: Levothyroxine 112 MCG Tab PO SCH (08:19)
[2023-07-03] MEDS: Pantoprazole 40 MG Tab.CR PO SCH (08:19)
[2023-07-03] MEDS ORDERED: Doxycycline 100 MG in Sodium Chloride 0.9% 100 ML IV SCH (09:00)
[2023-07-03] MEDS ORDERED: Latanoprost 0.005% Ophth Soln 2.5 ML Bottle EYERT SCH (09:00)
[2023-07-03] MEDS: Doxycycline 100 MG in Sodium Chloride 0.9% 100 ML IV SCH ×2 (11:22→23:18)
[2023-07-03] MEDS: Benzocaine/Cetylpyridinium/Menthol Lozenge MUCMEM PRN (16:15)
[2023-07-03] MEDS ORDERED: diphenhydrAMINE 25 MG Cap PO SCH (17:00)
[2023-07-03] MEDS: cefTRIAXone 1 GM in Sodium Chloride 0.9% 50 ML IV SCH (20:46)
[2023-07-03] MEDS: Latanoprost 0.005% Ophth Soln 2.5 ML Bottle EYEBOTH SCH (20:48)
[2023-07-03] MEDS: CLOZAPINE 100MG TAB (PTOM) PO SCH (20:48)
[2023-07-03] MEDS: REMDESIVIR 100 MG in Sodium Chloride 0.9% 100 ML IV SCH (21:59)
[2023-07-04 04:51] LABS: HEMATOCRIT 32.6 % (38.4-49.7); MEAN CORPUSCULAR HEMOGLOBIN 29.3 pg (31.6-35.5); MEAN CORPUSCULAR HGB CONC 33.7 g/dL (31.6-35.5); MEAN CORPUSCULAR VOLUME 86.7 fL (81.4-99.0); RED BLOOD CELL COUNT 3.76 M/uL (4.14-5.76); WHITE BLOOD CELL COUNT,WBC 8.3 K/uL (3.2-11.0)
[2023-07-04 05:12] LABS: A/G RATIO 0.8 (1.2-2.2); ALANINE AMINOTRANSFERASE,ALT 13 U/L (12-78); ALBUMIN 2.3 g/dL (3.4-5.0); ALKALINE PHOSPHATASE 49 U/L (46-116); ASPARTATE AMNIOTRANSFERASE,AST 27 U/L (15-37); BILIRUBIN TOTAL 0.2 mg/dL (0.2-1.0); BLOOD UREA NITROGEN,BUN 24 mg/dL (7-18); CALCIUM 7.9 mg/dL (8.5-10.1); CARBON DIOXIDE,CO2 30 mmol/L (21-32); CHLORIDE,CL 107 mmol/L (100-108); CREATININE 1.2 mg/dL (0.8-1.3); EST CRCL DRUG DOSING (CG) 56.86 mL/min; ESTIMATED GFR 68 mL/min (>60); GLUCOSE RANDOM 122 mg/dL (74-106); POTASSIUM,K 3.5 mmol/L (3.6-5.2); PROTEIN TOTAL,TP 5.1 g/dL (6.4-8.2); SODIUM,NA 145 mmol/L (140-148)
[2023-07-04 05:15] LABS: ANION GAP 11.5 mmol/L (5.0-14.0)
[2023-07-04] MEDS: Sodium Chloride 5% Ophth Soln 15 ML Bottle EYEBOTH SCH ×4 (06:05→21:20)
[2023-07-04] MEDS: Levothyroxine 112 MCG Tab PO SCH (08:30)
[2023-07-04] MEDS: Levothyroxine 25 MCG Tab PO SCH (08:30)
[2023-07-04] MEDS: Pantoprazole 40 MG Tab.CR PO SCH (08:36)
[2023-07-04] MEDS: Rivaroxaban 10 MG Tab PO SCH (08:44)
[2023-07-04] MEDS: Haloperidol 5 MG Tab PO SCH ×2 (08:44→20:03)
[2023-07-04] MEDS: Lactobacillus Rhamnosus GG (Probiotic) Cap PO SCH ×2 (08:45→20:05)
[2023-07-04] MEDS: Doxazosin 4 MG Tab PO SCH (08:45)
[2023-07-04] MEDS ORDERED: Potassium Chloride 20 MEQ Tab.ER PO ONE (08:45)
[2023-07-04] MEDS: Citalopram 10 MG Tab PO SCH (08:48)
[2023-07-04] MEDS: Hydrochlorothiazide 25 MG Tab PO SCH (08:48)
[2023-07-04] MEDS: Sennosides 8.6 MG Tab PO SCH ×2 (08:49→20:06)
[2023-07-04] MEDS: Atenolol 25 MG Tab PO SCH (08:50)
[2023-07-04] MEDS: diphenhydrAMINE 25 MG Cap PO SCH ×2 (08:51→20:06)
[2023-07-04] MEDS: Dexamethasone 2 MG Tab PO SCH (08:52)
[2023-07-04] MEDS: LORazepam 1 MG Tab PO SCH ×2 (08:58→20:02)
[2023-07-04] MEDS: Doxycycline 100 MG in Sodium Chloride 0.9% 100 ML IV SCH ×2 (11:10→22:36)
[2023-07-04] MEDS ORDERED: Calcium Carbonate 500 MG Tab.Chew PO PRN (15:13)
[2023-07-04] MEDS: Sennosides/Docusate Sodium 50-8.6 MG Tab PO PRN (20:02)
[2023-07-04] MEDS: cefTRIAXone 1 GM in Sodium Chloride 0.9% 50 ML IV SCH (20:02)
[2023-07-04] MEDS: Divalproex Sodium Delayed-Release 250 MG Tab.CR PO SCH (20:04)
[2023-07-04] MEDS: Latanoprost 0.005% Ophth Soln 2.5 ML Bottle EYEBOTH SCH (20:06)
[2023-07-04] MEDS: CLOZAPINE 100MG TAB (PTOM) PO SCH (20:07)
[2023-07-04] MEDS: REMDESIVIR 100 MG in Sodium Chloride 0.9% 100 ML IV SCH (21:19)
[2023-07-05 05:22] LABS: A/G RATIO 0.8 (1.2-2.2); ALANINE AMINOTRANSFERASE,ALT 13 U/L (12-78); ALBUMIN 2.4 g/dL (3.4-5.0); ALKALINE PHOSPHATASE 50 U/L (46-116); ASPARTATE AMNIOTRANSFERASE,AST 20 U/L (15-37); BILIRUBIN TOTAL 0.2 mg/dL (0.2-1.0); BLOOD UREA NITROGEN,BUN 28 mg/dL (7-18); CALCIUM 8.1 mg/dL (8.5-10.1); CARBON DIOXIDE,CO2 29 mmol/L (21-32); CHLORIDE,CL 108 mmol/L (100-108); CREATININE 1.2 mg/dL (0.8-1.3); EST CRCL DRUG DOSING (CG) 56.86 mL/min; ESTIMATED GFR 68 mL/min (>60); GLUCOSE RANDOM 112 mg/dL (74-106); POTASSIUM,K 3.6 mmol/L (3.6-5.2); PROTEIN TOTAL,TP 5.3 g/dL (6.4-8.2); SODIUM,NA 145 mmol/L (140-148)
[2023-07-05] MEDS: Sodium Chloride 5% Ophth Soln 15 ML Bottle EYEBOTH SCH ×4 (05:25→21:53)
[2023-07-05] MEDS: Doxazosin 4 MG Tab PO SCH (10:35)
[2023-07-05] MEDS: LORazepam 1 MG Tab PO SCH ×2 (10:36→20:39)
[2023-07-05] MEDS: Sennosides/Docusate Sodium 50-8.6 MG Tab PO PRN (10:36)
[2023-07-05] MEDS: Pantoprazole 40 MG Tab.CR PO SCH (10:36)
[2023-07-05] MEDS: Dexamethasone 2 MG Tab PO SCH (10:37)
[2023-07-05] MEDS: Lactobacillus Rhamnosus GG (Probiotic) Cap PO SCH ×2 (10:37→20:30)
[2023-07-05] MEDS: Hydrochlorothiazide 25 MG Tab PO SCH (10:37)
[2023-07-05] MEDS: diphenhydrAMINE 25 MG Cap PO SCH ×2 (10:37→17:14)
[2023-07-05] MEDS: Haloperidol 5 MG Tab PO SCH ×2 (10:37→20:30)
[2023-07-05] MEDS: Levothyroxine 112 MCG Tab PO SCH (10:37)
[2023-07-05] MEDS: Citalopram 10 MG Tab PO SCH (10:38)
[2023-07-05] MEDS: Polyethylene Glycol 3350 Powder 17 GM Packet PO SCH (10:38)
[2023-07-05] MEDS: Sennosides 8.6 MG Tab PO SCH ×2 (10:38→20:29)
[2023-07-05] MEDS: Atenolol 25 MG Tab PO SCH (10:38)
[2023-07-05] MEDS: Rivaroxaban 10 MG Tab PO SCH (10:40)
[2023-07-05] MEDS: Levothyroxine 25 MCG Tab PO SCH (10:48)
[2023-07-05] MEDS: Doxycycline 100 MG in Sodium Chloride 0.9% 100 ML IV SCH ×2 (11:21→22:51)
[2023-07-05] MEDS: Benzocaine/Cetylpyridinium/Menthol Lozenge MUCMEM PRN (11:21)
[2023-07-05] MEDS ORDERED: Sodium Phosphate,Monobasic/Sodium Phosphate,Dibasic Enema 133 ML Bottle RECTAL PRN (11:39)
[2023-07-05] MEDS ORDERED: Potassium Chloride 20 MEQ Tab.ER PO ONE (13:00)
[2023-07-05] MEDS ORDERED: Polyethylene Glycol 3350 Powder 17 GM Packet PO ONE (13:00)
[2023-07-05] MEDS ORDERED: Bisacodyl 10 MG Supp RECTAL ONE (13:00)
[2023-07-05] MEDS: Docusate Sodium 100 MG Cap PO SCH ×2 (13:36→20:30)
[2023-07-05] MEDS: cefTRIAXone 1 GM in Sodium Chloride 0.9% 50 ML IV SCH (20:28)
[2023-07-05] MEDS: CLOZAPINE 100MG TAB (PTOM) PO SCH (20:29)
[2023-07-05] MEDS: Divalproex Sodium Delayed-Release 250 MG Tab.CR PO SCH (20:29)
[2023-07-05] MEDS: Latanoprost 0.005% Ophth Soln 2.5 ML Bottle EYEBOTH SCH (20:29)
[2023-07-05] MEDS: REMDESIVIR 100 MG in Sodium Chloride 0.9% 100 ML IV SCH (21:32)
[2023-07-06 05:44] LABS: A/G RATIO 0.9 (1.2-2.2); ALANINE AMINOTRANSFERASE,ALT 15 U/L (12-78); ALBUMIN 2.5 g/dL (3.4-5.0); ALKALINE PHOSPHATASE 57 U/L (46-116); ANION GAP 6.8 mmol/L (5.0-14.0); ASPARTATE AMNIOTRANSFERASE,AST 17 U/L (15-37); BILIRUBIN TOTAL 0.2 mg/dL (0.2-1.0); BLOOD UREA NITROGEN,BUN 31 mg/dL (7-18); CALCIUM 8.1 mg/dL (8.5-10.1); CARBON DIOXIDE,CO2 30 mmol/L (21-32); CHLORIDE,CL 108 mmol/L (100-108); CREATININE 1.3 mg/dL (0.8-1.3); EST CRCL DRUG DOSING (CG) 52.49 mL/min; ESTIMATED GFR 62 mL/min (>60); GLUCOSE RANDOM 150 mg/dL (74-106); PROTEIN TOTAL,TP 5.4 g/dL (6.4-8.2); SODIUM,NA 145 mmol/L (140-148)
[2023-07-06] MEDS: Benzocaine/Cetylpyridinium/Menthol Lozenge MUCMEM PRN (05:53)
[2023-07-06] MEDS: Sodium Chloride 5% Ophth Soln 15 ML Bottle EYEBOTH SCH ×4 (05:53→22:10)
[2023-07-06] MEDS: LORazepam 1 MG Tab PO SCH ×2 (08:29→20:00)
[2023-07-06] MEDS: Levothyroxine 25 MCG Tab PO SCH (08:29)
[2023-07-06] MEDS: Pantoprazole 40 MG Tab.CR PO SCH (08:30)
[2023-07-06] MEDS: Levothyroxine 112 MCG Tab PO SCH (08:30)
[2023-07-06] MEDS: Rivaroxaban 10 MG Tab PO SCH (08:31)
[2023-07-06] MEDS: Dexamethasone 2 MG Tab PO SCH (08:31)
[2023-07-06] MEDS: diphenhydrAMINE 25 MG Cap PO SCH ×2 (08:32→17:04)
[2023-07-06] MEDS: Doxazosin 4 MG Tab PO SCH (08:33)
[2023-07-06] MEDS: Citalopram 10 MG Tab PO SCH (08:33)
[2023-07-06] MEDS: Docusate Sodium 100 MG Cap PO SCH ×2 (08:33→20:00)
[2023-07-06] MEDS: Haloperidol 5 MG Tab PO SCH ×2 (08:34→20:01)
[2023-07-06] MEDS: Lactobacillus Rhamnosus GG (Probiotic) Cap PO SCH ×2 (08:34→20:00)
[2023-07-06] MEDS: Hydrochlorothiazide 25 MG Tab PO SCH (08:35)
[2023-07-06] MEDS: Sennosides 8.6 MG Tab PO SCH ×2 (08:35→20:02)
[2023-07-06] MEDS: Atenolol 25 MG Tab PO SCH (08:35)
[2023-07-06] MEDS: Doxycycline 100 MG in Sodium Chloride 0.9% 100 ML IV SCH (10:48)
[2023-07-06] MEDS: Divalproex Sodium Delayed-Release 250 MG Tab.CR PO SCH (20:00)
[2023-07-06] MEDS: CLOZAPINE 100MG TAB (PTOM) PO SCH (20:01)
[2023-07-06] MEDS: Cefdinir 300 MG Cap PO SCH (20:01)
[2023-07-06] MEDS: Latanoprost 0.005% Ophth Soln 2.5 ML Bottle EYEBOTH SCH (20:02)
[2023-07-06] MEDS: Doxycycline 100 MG Cap PO SCH (20:02)
[2023-07-06] MEDS: REMDESIVIR 100 MG in Sodium Chloride 0.9% 100 ML IV SCH (22:10)
[2023-07-07 05:57] LABS: HEMATOCRIT 34.3 % (38.4-49.7); HEMOGLOBIN 11.6 g/dL (12.9-16.9); MEAN CORPUSCULAR HEMOGLOBIN 29.1 pg (31.6-35.5); MEAN CORPUSCULAR HGB CONC 33.8 g/dL (31.6-35.5); MEAN CORPUSCULAR VOLUME 86.2 fL (81.4-99.0); RED BLOOD CELL COUNT 3.98 M/uL (4.14-5.76); WHITE BLOOD CELL COUNT,WBC 8.1 K/uL (3.2-11.0)
[2023-07-07 06:22] LABS: A/G RATIO 0.9 (1.2-2.2); ALANINE AMINOTRANSFERASE,ALT 14 U/L (12-78); ALBUMIN 2.4 g/dL (3.4-5.0); ALKALINE PHOSPHATASE 53 U/L (46-116); ANION GAP 7.1 mmol/L (5.0-14.0); ASPARTATE AMNIOTRANSFERASE,AST 15 U/L (15-37); BILIRUBIN TOTAL 0.3 mg/dL (0.2-1.0); BLOOD UREA NITROGEN,BUN 29 mg/dL (7-18); CARBON DIOXIDE,CO2 32 mmol/L (21-32); CHLORIDE,CL 106 mmol/L (100-108); CREATININE 1.2 mg/dL (0.8-1.3); EST CRCL DRUG DOSING (CG) 56.86 mL/min; ESTIMATED GFR 68 mL/min (>60); GLUCOSE RANDOM 90 mg/dL (74-106); POTASSIUM,K 3.7 mmol/L (3.6-5.2); SODIUM,NA 145 mmol/L (140-148)
[2023-07-07] MEDS: Sodium Chloride 5% Ophth Soln 15 ML Bottle EYEBOTH SCH ×2 (06:32→11:02)
[2023-07-07] MEDS: Levothyroxine 112 MCG Tab PO SCH (07:38)
[2023-07-07] MEDS: Levothyroxine 25 MCG Tab PO SCH (07:39)
[2023-07-07] MEDS: Pantoprazole 40 MG Tab.CR PO SCH (07:39)
[2023-07-07] MEDS: Rivaroxaban 10 MG Tab PO SCH (07:40)
[2023-07-07] MEDS: Dexamethasone 2 MG Tab PO SCH (07:40)
[2023-07-07] MEDS: diphenhydrAMINE 25 MG Cap PO SCH (08:17)
[2023-07-07] MEDS: Cefdinir 300 MG Cap PO SCH (08:17)
[2023-07-07] MEDS: Atenolol 25 MG Tab PO SCH (08:18)
[2023-07-07] MEDS: Haloperidol 5 MG Tab PO SCH (08:18)
[2023-07-07] MEDS: Polyethylene Glycol 3350 Powder 17 GM Packet PO SCH (08:18)
[2023-07-07] MEDS: Sennosides 8.6 MG Tab PO SCH (08:18)
[2023-07-07] MEDS: Hydrochlorothiazide 25 MG Tab PO SCH (08:19)
[2023-07-07] MEDS: Citalopram 10 MG Tab PO SCH (08:19)
[2023-07-07] MEDS: Lactobacillus Rhamnosus GG (Probiotic) Cap PO SCH (08:19)
[2023-07-07] MEDS: Doxazosin 4 MG Tab PO SCH (08:19)
[2023-07-07] MEDS: Doxycycline 100 MG Cap PO SCH (08:20)
[2023-07-07] MEDS: Docusate Sodium 100 MG Cap PO SCH (08:20)
[2023-07-07] MEDS: LORazepam 1 MG Tab PO SCH (08:24)
[2023-07-07 12:56] VITALS: BP 122/59; PULSE 71
== END 2023-07-07 14:40 | disposition home or self-care (01) | DRG 177 ==
LOC: JP.ED 18:54 → JP.MS 20:30
PROVIDERS: ADMIT Registered Nurse; ATTEND Internal Medicine
PROC: XW033E5 Introduction of Remdesivir Anti-infective into Peripheral Vein, Percutaneous Approach, New Technology Group 5 (ICD-10-PCS; principal; 2023-07-02)
PROC: 3E0333Z Introduction of Anti-inflammatory into Peripheral Vein, Percutaneous Approach (ICD-10-PCS; 2023-07-02)
DX: U07.1 COVID-19 (principal); J12.82 Pneumonia due to coronavirus disease 2019; J15.9 Unspecified bacterial pneumonia; J96.01 Acute respiratory failure with hypoxia; N17.9 Acute kidney failure, unspecified; F20.9 Schizophrenia, unspecified; E87.6 Hypokalemia; E86.0 Dehydration; I10 Essential (primary) hypertension; K21.9 Gastro-esophageal reflux disease without esophagitis; M19.90 Unspecified osteoarthritis, unspecified site; E03.9 Hypothyroidism, unspecified; F39 Unspecified mood [affective] disorder; H18.519 Endothelial corneal dystrophy, unspecified eye; D64.9 Anemia, unspecified; Z99.81 Dependence on supplemental oxygen; Z79.890 Hormone replacement therapy; Z86.16 Personal history of COVID-19; Z79.01 Long term (current) use of anticoagulants; Z79.899 Other long term (current) drug therapy; Z86.718 Personal history of other venous thrombosis and embolism; Z98.41 Cataract extraction status, right eye; Z98.42 Cataract extraction status, left eye
CPT/HCPCS: 0241U; 36415; 71045; 71045-26; 80053; 81001; 82803; 83605; 83735; 84145; 84484; 85025; 85027; 85610; 85730; 86140; 86850; 86870; 86900; 86901; 86902; 87040; 93010; 96361; 96374; 96375; 99222; 99232; 99238; 99285; 99285-25; A9270-GY; J0696; J1100; J3490; J7030; J7050; J8540

== ENCOUNTER 2023-10-29 08:32 | Day surgery (SDC) | payer MEDICAID ==
[2023-10-29] MEDS ORDERED: fentaNYL 50 MCG/ML SDV ONE (10:18)
[2023-10-29] MEDS ORDERED: Propofol 200 MG/20 ML SDV ONE (10:18)
[2023-10-29] MEDS ORDERED: Midazolam 1 MG/ML 2 ML SDV ONE (10:18)
[2023-10-29] MEDS: Sodium Chloride 0.9% 1,000 ML IV SCH (11:00)
[2023-10-29 12:15] VITALS: BP 125/55; PULSE 68
== END 2023-10-29 13:20 | disposition home or self-care (01) ==
LOC: JP.SDS 08:32
PROVIDERS: ATTEND Surgery
DX: Z12.11 Encounter for screening for malignant neoplasm of colon (principal); I10 Essential (primary) hypertension; E11.9 Type 2 diabetes mellitus without complications
CPT/HCPCS: 45378; J2250; J2704; J3010; J7030

== ENCOUNTER 2024-02-01 16:20 | Inpatient (IN) | payer MEDICAID ==
[2024-02-01] MEDS ORDERED: Sodium Chloride 0.9% 10 ML Syringe FLUSH PRN (16:22)
[2024-02-01] MEDS: Sodium Chloride 0.9% 1,000 ML IV ONE (16:45)
[2024-02-01 16:49] LABS: BASE EXCESS VENOUS 4.7 mm/L; BASOPHILS ABSOLUTE AUTO 0.04 K/uL (0.00-0.10); BASOPHILS PERCENT AUTO 0.3 % (0.1-1.3); BICARBONATE,VENOUS 29.1 mmol/L; CARBOXYHEMOGLOBIN 2.7 % (0.0-1.6); EOSINOPHILS ABSOLUTE AUTO 0.04 K/uL (0.00-0.40); EOSINOPHILS PERCENT AUTO 0.3 % (0.0-5.4); HEMATOCRIT 34.8 % (38.4-49.7); HEMOGLOBIN 11.9 g/dL (12.9-16.9); IMMATURE GRAN ABSOLUTE AUTO 0.14 K/uL (0.00-0.23); IMMATURE GRAN PERCENT AUTO 1.2 % (0.0-0.7); LYMPHOCYTES ABSOLUTE AUTO 0.54 K/uL (0.8-3.3); LYMPHOCYTES PERCENT AUTO 4.5 % (11.4-47.7); MEAN CORPUSCULAR HEMOGLOBIN 28.5 pg (31.6-35.5); MEAN CORPUSCULAR HGB CONC 34.2 g/dL (31.6-35.5); MEAN CORPUSCULAR VOLUME 83.3 fL (81.4-99.0); METHEMOGLOBIN 1.3 %; MONOCYTES ABSOLUTE AUTO 1.49 K/uL (0.20-0.90); MONOCYTES PERCENT AUTO 12.4 % (3.3-12.6); NEUTROPHILS PERCENT AUTO 81.3 % (40.0-78.1); OXYHEMOGLOBIN 57.6 %; PCO2 VENOUS 44.5 mm/Hg; PH,VENOUS 7.431 (7.350-7.450); PLATELET COUNT,PLT 162 K/uL (130-375); RED BLOOD CELL COUNT 4.18 M/uL (4.14-5.76); TOTAL HEMOGLOBIN 12.6 g/dL (13.5-18.0); WHITE BLOOD CELL COUNT,WBC 12.1 K/uL (3.2-11.0)
[2024-02-01] MEDS: cefTRIAXone 2 GM in Sodium Chloride 0.9% 50 ML IV ONE (16:53)
[2024-02-01 16:54] LABS: PO2 VENOUS 33.9 mm/Hg
[2024-02-01 17:13] LABS: A/G RATIO 0.9 (1.2-2.2); ALANINE AMINOTRANSFERASE,ALT 18 U/L (12-78); ALBUMIN 3.1 g/dL (3.4-5.0); ALKALINE PHOSPHATASE 94 U/L (46-116); ANION GAP 13.2 mmol/L (5.0-14.0); ASPARTATE AMNIOTRANSFERASE,AST 21 U/L (15-37); BILIRUBIN TOTAL 0.6 mg/dL (0.2-1.0); BLOOD UREA NITROGEN,BUN 22 mg/dL (7-18); CALCIUM 8.4 mg/dL (8.5-10.1); CARBON DIOXIDE,CO2 29 mmol/L (21-32); CHLORIDE,CL 97 mmol/L (100-108); CREATININE 1.9 mg/dL (0.8-1.3); EST CRCL DRUG DOSING (CG) 37.21 mL/min; ESTIMATED GFR 39 mL/min (>60); GLUCOSE RANDOM 147 mg/dL (74-106); POTASSIUM,K 3.2 mmol/L (3.6-5.2); PROTEIN TOTAL,TP 6.7 g/dL (6.4-8.2); SODIUM,NA 136 mmol/L (140-148)
[2024-02-01 17:18] LABS: LACTIC ACID 2.5 mmol/L (0.4-2.0)
[2024-02-01 17:22] LABS: CORONAVIRUS COVID-19 NAA NEGATIVE (NEGATIVE); INFLUENZA A NAA NEGATIVE (NEGATIVE); INFLUENZA B NAA NEGATIVE (NEGATIVE); RESPIRATORY SYNCYTIAL VIR NAA NEGATIVE (NEGATIVE)
[2024-02-01] MEDS ORDERED: Iopamidol 612 MG/ML 100 ML Bottle IV SCH (17:45)
[2024-02-01] MEDS ORDERED: Sodium Chloride 0.9% 80 ML IV SCH (17:45)
[2024-02-01 18:01] LABS: APPEARANCE,URINE CLEAR (CLEAR); BILIRUBIN,URINE NEGATIVE (NEGATIVE); COLOR,URINE YELLOW (YELLOW); GLUCOSE,URINE NEGATIVE (NEGATIVE); KETONES,URINE NEGATIVE (NEGATIVE); LEUKOCYTE ESTERASE,URINE NEGATIVE (NEGATIVE); NITRITE,URINE NEGATIVE (NEGATIVE); OCCULT BLOOD,URINE NEGATIVE (NEGATIVE); PROTEIN,URINE 30 mg/dL (NEGATIVE)
[2024-02-01 18:06] LABS: RBC,URINE 0-5 (0-5); WBC,URINE 0-5 (0-5)
[2024-02-01 18:07] LABS: AMORPHOUS SEDIMENT,URINE NOT SEEN; BACTERIA,URINE FEW; EPITHELIAL CELLS,URINE NOT SEEN; MUCUS,URINE NOT SEEN
[2024-02-01 18:40] LABS: MAGNESIUM 1.6 mg/dL (1.8-2.4)
[2024-02-01] MEDS: Potassium Chloride 20 MEQ in Premix Bag 1 BAG IV ONE (18:42)
[2024-02-01] MEDS ORDERED: Ondansetron 4 MG Tab.DIS PO PRN (21:35)
[2024-02-01] MEDS ORDERED: LORazepam 1 MG Tab PO PRN (21:35)
[2024-02-01] MEDS ORDERED: Albuterol 0.083% 2.5 MG/3 ML Neb Soln NEB PRN (21:35)
[2024-02-01] MEDS ORDERED: Acetaminophen 325 MG Tab PO PRN (21:35)
[2024-02-01] MEDS ORDERED: Naloxone 0.4 MG/ML SDV IVPUSH PRN (21:35)
[2024-02-01] MEDS ORDERED: Morphine 2 MG/ML SYRINGE IVPUSH PRN (21:35)
[2024-02-01] MEDS ORDERED: fentaNYL 50 MCG/ML SDV IVPUSH PRN (21:38)
[2024-02-01] MEDS: Potassium Chloride 10 MEQ in Premix Bag 1 BAG IV ONE (22:20)
[2024-02-01] MEDS: Non-Formulary Medication 1 Each (Famotidine [Famotidine] 40 MG Tablet) PO SCH (22:21)
[2024-02-01] MEDS: Lactated Ringers 1,000 ML IV ONE (22:21)
[2024-02-01] MEDS: Albuterol/Ipratropium 3.0-0.5 MG/3 ML Neb Soln NEB SCH (22:40)
[2024-02-01] MEDS: Divalproex Sodium Delayed-Release 250 MG Tab.CR PO SCH (22:42)
[2024-02-01] MEDS: diphenhydrAMINE 25 MG Cap PO SCH (22:46)
[2024-02-01] MEDS: methylPREDNISolone Sodium Succinate 125 MG/2 ML SDV IVPUSH ONE (22:46)
[2024-02-01] MEDS: Haloperidol 5 MG Tab PO SCH (22:46)
[2024-02-01] MEDS: Sennosides 8.6 MG Tab PO SCH (22:46)
[2024-02-01] MEDS: Pantoprazole 40 MG Vial IVPUSH SCH (22:49)
[2024-02-01] MEDS: Levofloxacin/Dextrose 5%-Water 750 MG in Premix Bag 1 BAG IV SCH (22:57)
[2024-02-02] MEDS: Sodium Chloride 5% Ophth Soln 15 ML Bottle EYEBOTH SCH (00:27)
[2024-02-02] MEDS: Latanoprost 0.005% Ophth Soln 2.5 ML Bottle EYERT SCH (00:27)
[2024-02-02] MEDS: Potassium Chloride 20 MEQ in Premix Bag 1 BAG IV ONE (00:43)
[2024-02-02] MEDS: methylPREDNISolone Sodium Succinate 40 MG/1 ML SDV IVPUSH SCH (02:25)
[2024-02-02] MEDS: Magnesium Sulfate/Water 2 GM in Premix Bag 1 BAG IV ONE (02:38)
[2024-02-02 06:23] LABS: BASOPHILS PERCENT AUTO 0.2 % (0.1-1.3); HEMATOCRIT 33.2 % (38.4-49.7); HEMOGLOBIN 11.3 g/dL (12.9-16.9); IMMATURE GRAN ABSOLUTE AUTO 0.08 K/uL (0.00-0.23); LYMPHOCYTES ABSOLUTE AUTO 0.72 K/uL (0.8-3.3); LYMPHOCYTES PERCENT AUTO 8.6 % (11.4-47.7); MEAN CORPUSCULAR HEMOGLOBIN 28.8 pg (31.6-35.5); MEAN CORPUSCULAR VOLUME 84.7 fL (81.4-99.0); MONOCYTES ABSOLUTE AUTO 0.18 K/uL (0.20-0.90); MONOCYTES PERCENT AUTO 2.1 % (3.3-12.6); NEUTROPHILS ABSOLUTE AUTO 7.42 K/uL (1.0-7.6); NEUTROPHILS PERCENT AUTO 88.1 % (40.0-78.1); PLATELET COUNT,PLT 175 K/uL (130-375); RED BLOOD CELL COUNT 3.92 M/uL (4.14-5.76); WHITE BLOOD CELL COUNT,WBC 8.4 K/uL (3.2-11.0)
[2024-02-02 06:28] LABS: BASOPHILS ABSOLUTE AUTO 0.02 K/uL (0.00-0.10)
[2024-02-02 06:47] LABS: ANION GAP 9.7 mmol/L (5.0-14.0); C-REACTIVE PROTEIN 14.45 mg/dL (<0.50); CALCIUM 8.3 mg/dL (8.5-10.1); CREATININE 1.7 mg/dL (0.8-1.3); EST CRCL DRUG DOSING (CG) 40.86 mL/min; MAGNESIUM 2.7 mg/dL (1.8-2.4); POTASSIUM,K 3.6 mmol/L (3.6-5.2)
[2024-02-02] MEDS: Sodium Chloride 0.9% 1,000 ML IV SCH (07:00)
[2024-02-02] MEDS: Levothyroxine 25 MCG Tab PO SCH (07:36)
[2024-02-02] MEDS: Levothyroxine 112 MCG Tab PO SCH (07:36)
[2024-02-02] MEDS: Citalopram 20 MG Tab PO SCH (10:03)
[2024-02-02] MEDS: diphenhydrAMINE 25 MG Cap PO SCH ×2 (10:03→20:51)
[2024-02-02] MEDS: Doxazosin 4 MG Tab PO SCH (10:03)
[2024-02-02] MEDS: Hydrochlorothiazide 25 MG Tab PO SCH (10:03)
[2024-02-02] MEDS: Atenolol 25 MG Tab PO SCH (10:03)
[2024-02-02] MEDS: Rivaroxaban 10 MG Tab PO SCH (10:04)
[2024-02-02] MEDS: Albuterol/Ipratropium 3.0-0.5 MG/3 ML Neb Soln NEB SCH (14:37)
[2024-02-02] MEDS: cefTRIAXone 2 GM in Sodium Chloride 0.9% 50 ML IV SCH (16:27)
[2024-02-02] MEDS ORDERED: cefTRIAXone 2 GM in Sodium Chloride 0.9% 50 ML IV SCH (17:00)
[2024-02-02] MEDS: CLOZAPINE 100 MG PO SCH (20:49)
[2024-02-03 06:12] LABS: HEMATOCRIT 29.8 % (38.4-49.7); HEMOGLOBIN 10.2 g/dL (12.9-16.9); MEAN CORPUSCULAR HEMOGLOBIN 29.3 pg (31.6-35.5); MEAN CORPUSCULAR HGB CONC 34.2 g/dL (31.6-35.5); MEAN CORPUSCULAR VOLUME 85.6 fL (81.4-99.0); RED BLOOD CELL COUNT 3.48 M/uL (4.14-5.76); WHITE BLOOD CELL COUNT,WBC 10.6 K/uL (3.2-11.0)
[2024-02-03 06:26] LABS: CALCIUM 8.3 mg/dL (8.5-10.1); CREATININE 1.4 mg/dL (0.8-1.3); EST CRCL DRUG DOSING (CG) 49.61 mL/min; POTASSIUM,K 3.4 mmol/L (3.6-5.2)
[2024-02-03 06:34] LABS: ANION GAP 9.4 mmol/L (5.0-14.0)
[2024-02-03] MEDS: Potassium Chloride 10 MEQ in Premix Bag 1 BAG IV SCH (08:44)
[2024-02-03] MEDS ORDERED: Levofloxacin/Dextrose 5%-Water 750 MG in Premix Bag 1 BAG IV SCH (14:00)
[2024-02-03] MEDS: Levofloxacin 250 MG Tab PO SCH (14:23)
[2024-02-04] MEDS ORDERED: Benzonatate 100 MG Cap PO PRN (00:49)
[2024-02-04 05:59] LABS: ANION GAP 7.9 mmol/L (5.0-14.0); CALCIUM 8.5 mg/dL (8.5-10.1); CREATININE 1.3 mg/dL (0.8-1.3); EST CRCL DRUG DOSING (CG) 53.43 mL/min; POTASSIUM,K 3.6 mmol/L (3.6-5.2)
[2024-02-04] MEDS: Potassium Chloride 20 MEQ Tab.ER PO ONE (08:27)
[2024-02-04] MEDS: Bisacodyl 5 MG Tab PO ONE (09:28)
[2024-02-04] MEDS: Polyethylene Glycol 3350 Powder 17 GM Packet PO ONE (13:12)
[2024-02-04] MEDS: Melatonin 3 MG Tab PO PRN (21:48)
[2024-02-05 11:08] VITALS: BP 126/112; PULSE 74
== END 2024-02-05 11:30 | disposition home or self-care (01) | DRG 193 ==
LOC: JP.ED 16:20 → JP.MS 20:16
PROVIDERS: ADMIT Internal Medicine; ATTEND Internal Medicine
PROC: 4A033R1 Measurement of Arterial Saturation, Peripheral, Percutaneous Approach (ICD-10-PCS; principal; 2024-02-01)
DX: J18.9 Pneumonia, unspecified organism (principal); J96.01 Acute respiratory failure with hypoxia; N17.9 Acute kidney failure, unspecified; I10 Essential (primary) hypertension; K21.9 Gastro-esophageal reflux disease without esophagitis; K59.09 Other constipation; F41.9 Anxiety disorder, unspecified; E03.9 Hypothyroidism, unspecified; F32.A Depression, unspecified; F20.9 Schizophrenia, unspecified; E87.6 Hypokalemia; E83.42 Hypomagnesemia; Z86.16 Personal history of COVID-19; Z79.01 Long term (current) use of anticoagulants; Z79.899 Other long term (current) drug therapy
CPT/HCPCS: 0241U; 36415; 71260; 74019; 74019-26; 74177; 80048; 80053; 81001; 82150; 82803; 83605; 83690; 83735; 83880; 84145; 85025; 85027; 86140; 87040; 94640; 96361; 96365; 96366; 96367; 99285; 99285-25; A9270-GY; C9113; J0696; J1956; J2919; J3475; J3480; J3490; J7030; J7620

== ENCOUNTER 2024-02-26 08:24 | Emergency (ER) | payer MEDICAID ==
[2024-02-26] MEDS: Sodium Chloride 0.9% 1,000 ML IV ONE (08:59)
[2024-02-26] MEDS: Ondansetron 4 MG/2 ML SDV IVPUSH ONE (08:59)
[2024-02-26 09:02] LABS: BASOPHILS ABSOLUTE AUTO 0.02 K/uL (0.00-0.10); BASOPHILS PERCENT AUTO 0.2 % (0.1-1.3); EOSINOPHILS ABSOLUTE AUTO 0.09 K/uL (0.00-0.40); EOSINOPHILS PERCENT AUTO 0.8 % (0.0-5.4); HEMATOCRIT 34.5 % (38.4-49.7); HEMOGLOBIN 11.7 g/dL (12.9-16.9); IMMATURE GRAN PERCENT AUTO 0.9 % (0.0-0.7); LYMPHOCYTES ABSOLUTE AUTO 1.67 K/uL (0.8-3.3); LYMPHOCYTES PERCENT AUTO 15.6 % (11.4-47.7); MEAN CORPUSCULAR HEMOGLOBIN 28.7 pg (31.6-35.5); MEAN CORPUSCULAR HGB CONC 33.9 g/dL (31.6-35.5); MEAN CORPUSCULAR VOLUME 84.6 fL (81.4-99.0); MONOCYTES ABSOLUTE AUTO 0.93 K/uL (0.20-0.90); MONOCYTES PERCENT AUTO 8.7 % (3.3-12.6); NEUTROPHILS ABSOLUTE AUTO 7.87 K/uL (1.0-7.6); NEUTROPHILS PERCENT AUTO 73.8 % (40.0-78.1); PLATELET COUNT,PLT 220 K/uL (130-375); RED BLOOD CELL COUNT 4.08 M/uL (4.14-5.76); WHITE BLOOD CELL COUNT,WBC 10.7 K/uL (3.2-11.0)
[2024-02-26 09:19] LABS: INR 1.2; PROTHROMBIN TIME 11.9 sec (9.2-10.6)
[2024-02-26 09:33] LABS: A/G RATIO 0.9 (1.2-2.2); ALANINE AMINOTRANSFERASE,ALT 15 U/L (12-78); ALBUMIN 3.1 g/dL (3.4-5.0); ALKALINE PHOSPHATASE 95 U/L (46-116); ASPARTATE AMNIOTRANSFERASE,AST 15 U/L (15-37); BILIRUBIN TOTAL 0.3 mg/dL (0.2-1.0); BLOOD UREA NITROGEN,BUN 21 mg/dL (7-18); CALCIUM 8.3 mg/dL (8.5-10.1); CARBON DIOXIDE,CO2 27 mmol/L (21-32); CHLORIDE,CL 99 mmol/L (100-108); CREATININE 1.4 mg/dL (0.8-1.3); EST CRCL DRUG DOSING (CG) 48.74 mL/min; ESTIMATED GFR 56 mL/min (>60); GLUCOSE RANDOM 111 mg/dL (74-106); PROTEIN TOTAL,TP 6.5 g/dL (6.4-8.2); SODIUM,NA 138 mmol/L (140-148)
[2024-02-26] MEDS: Lactated Ringers 1,000 ML IV SCH (09:48)
[2024-02-26] MEDS: Bisacodyl 10 MG Supp RECTAL ONE ×2 (11:19→12:30)
[2024-02-26 12:05] VITALS: BP 149/78; PULSE 91
== END 2024-02-26 13:20 ==
LOC: JP.ED 08:24
DX: E86.0 Dehydration (principal); K59.00 Constipation, unspecified; R11.10 Vomiting, unspecified; F80.9 Developmental disorder of speech and language, unspecified; I10 Essential (primary) hypertension; E03.9 Hypothyroidism, unspecified; Z86.16 Personal history of COVID-19; Z79.899 Other long term (current) drug therapy; Z79.02 Long term (current) use of antithrombotics/antiplatelets
CPT/HCPCS: 36415; 74018; 74176; 80053; 82272; 83605; 83735; 83880; 84443; 85025; 85610; 86850; 86870; 86900; 86901; 86902; 96361; 96374; 99285; A9270; J2405; J7030; J7120

== ENCOUNTER 2024-04-21 08:21 | Day surgery (SDC) | payer MEDICAID ==
[2024-04-21] MEDS ORDERED: Propofol 200 MG/20 ML SDV ONE (09:03)
[2024-04-21] MEDS ORDERED: fentaNYL 50 MCG/ML SDV ONE (09:03)
[2024-04-21] MEDS ORDERED: Lidocaine 1% 2 ML ONE (09:36)
[2024-04-21 11:58] VITALS: BP 160/75; PULSE 72
[2024-04-21] MEDS: Sodium Chloride 0.9% 1,000 ML IV SCH (11:59)
== END 2024-04-21 13:05 ==
LOC: JP.SDS 08:21
PROVIDERS: ATTEND Surgery
DX: Z12.11 Encounter for screening for malignant neoplasm of colon (principal); I10 Essential (primary) hypertension
CPT/HCPCS: 45378; J2704; J3010; J7030

== ENCOUNTER 2024-05-04 07:54 | Day surgery (SDC) | payer MEDICAID ==
[2024-05-04] MEDS ORDERED: fentaNYL 50 MCG/ML SDV ONE (08:24)
[2024-05-04] MEDS ORDERED: Propofol 200 MG/20 ML SDV ONE (08:24)
[2024-05-04] MEDS: Sodium Chloride 0.9% 1,000 ML IV SCH (08:50)
[2024-05-04 10:40] VITALS: BP 158/85; PULSE 62
== END 2024-05-04 11:06 | disposition home or self-care (01) ==
LOC: JP.SDS 07:54
PROVIDERS: ATTEND Surgery
DX: Z12.11 Encounter for screening for malignant neoplasm of colon (principal); I10 Essential (primary) hypertension
CPT/HCPCS: 45378; J2704; J3010; J7030

== ENCOUNTER 2024-05-05 09:58 | Emergency (ER) | payer MEDICAID ==
[2024-05-05 10:02] VITALS: BP 119/62; PULSE 86
[2024-05-05] MEDS: Sodium Chloride 0.9% 1,000 ML IV STA ×2 (10:49→12:11)
[2024-05-05 11:06] LABS: ALANINE AMINOTRANSFERASE,ALT 15 U/L (12-78); ALBUMIN 3.3 g/dL (3.4-5.0); ALKALINE PHOSPHATASE 91 U/L (46-116); ASPARTATE AMNIOTRANSFERASE,AST 16 U/L (15-37); BASOPHILS ABSOLUTE AUTO 0.03 K/uL (0.00-0.10); BASOPHILS PERCENT AUTO 0.4 % (0.1-1.3); BILIRUBIN TOTAL 0.3 mg/dL (0.2-1.0); BLOOD UREA NITROGEN,BUN 14 mg/dL (7-18); CALCIUM 8.9 mg/dL (8.5-10.1); CARBON DIOXIDE,CO2 31 mmol/L (21-32); CHLORIDE,CL 95 mmol/L (100-108); CREATININE 1.9 mg/dL (0.8-1.3); EOSINOPHILS ABSOLUTE AUTO 0.13 K/uL (0.00-0.40); EOSINOPHILS PERCENT AUTO 1.7 % (0.0-5.4); EST CRCL DRUG DOSING (CG) 35.62 mL/min; ESTIMATED GFR 39 mL/min (>60); GLUCOSE RANDOM 105 mg/dL (74-106); HEMATOCRIT 36.3 % (38.4-49.7); HEMOGLOBIN 12.4 g/dL (12.9-16.9); IMMATURE GRAN ABSOLUTE AUTO 0.04 K/uL (0.00-0.23); IMMATURE GRAN PERCENT AUTO 0.5 % (0.0-0.7); LYMPHOCYTES ABSOLUTE AUTO 2.24 K/uL (0.8-3.3); LYMPHOCYTES PERCENT AUTO 29.7 % (11.4-47.7); MEAN CORPUSCULAR HEMOGLOBIN 29.5 pg (31.6-35.5); MEAN CORPUSCULAR HGB CONC 34.2 g/dL (31.6-35.5); MEAN CORPUSCULAR VOLUME 86.4 fL (81.4-99.0); MONOCYTES ABSOLUTE AUTO 0.86 K/uL (0.20-0.90); MONOCYTES PERCENT AUTO 11.4 % (3.3-12.6); NEUTROPHILS ABSOLUTE AUTO 4.25 K/uL (1.0-7.6); NEUTROPHILS PERCENT AUTO 56.3 % (40.0-78.1); PLATELET COUNT,PLT 187 K/uL (130-375); POTASSIUM,K 3.1 mmol/L (3.6-5.2); PROTEIN TOTAL,TP 6.7 g/dL (6.4-8.2); SODIUM,NA 139 mmol/L (140-148); WHITE BLOOD CELL COUNT,WBC 7.6 K/uL (3.2-11.0)
[2024-05-05 11:07] LABS: ANION GAP 16.1 mmol/L (5.0-14.0)
[2024-05-05 11:16] LABS: APPEARANCE,URINE SLIGHTLY CLOUDY (CLEAR); BILIRUBIN,URINE NEGATIVE (NEGATIVE); COLOR,URINE YELLOW (YELLOW); GLUCOSE,URINE NEGATIVE (NEGATIVE); KETONES,URINE NEGATIVE (NEGATIVE); LEUKOCYTE ESTERASE,URINE NEGATIVE (NEGATIVE); NITRITE,URINE NEGATIVE (NEGATIVE); OCCULT BLOOD,URINE NEGATIVE (NEGATIVE); PH,URINE 6.5 (5.0-8.0); PROTEIN,URINE 30 mg/dL (NEGATIVE); UROBILINOGEN,URINE 0.2 EU/dL (0.2-1.0)
[2024-05-05 11:22] LABS: AMORPHOUS SEDIMENT,URINE RARE; BACTERIA,URINE NOT SEEN; EPITHELIAL CELLS,URINE NOT SEEN; MUCUS,URINE RARE; RBC,URINE NOT SEEN (0-5); WBC,URINE 0-5 (0-5)
[2024-05-05] MEDS: Sodium Chloride 0.9% 80 ML IV SCH (11:38)
[2024-05-05] MEDS: Iopamidol 612 MG/ML 100 ML Bottle IV ONE (11:38)
== END 2024-05-05 14:36 | disposition home or self-care (01) ==
LOC: JP.ED 09:58
DX: K59.01 Slow transit constipation (principal); F20.9 Schizophrenia, unspecified; F81.9 Developmental disorder of scholastic skills, unspecified; F79 Unspecified intellectual disabilities; I10 Essential (primary) hypertension; K21.9 Gastro-esophageal reflux disease without esophagitis; E03.9 Hypothyroidism, unspecified; Z79.899 Other long term (current) drug therapy; Z79.01 Long term (current) use of anticoagulants
CPT/HCPCS: 36415; 74177; 80053; 81001; 83605; 85025; 96360; 96361; 99284; 99285; J3490; J7030; Q9967

== ENCOUNTER 2024-06-03 09:51 | Emergency (ER) | payer MEDICAID ==
[2024-06-03 11:04] VITALS: BP 146/76; PULSE 83
== END 2024-06-03 12:40 ==
LOC: JP.ED 09:51
DX: R14.0 Abdominal distension (gaseous) (principal); R11.2 Nausea with vomiting, unspecified; I10 Essential (primary) hypertension; E03.9 Hypothyroidism, unspecified; Z79.899 Other long term (current) drug therapy
CPT/HCPCS: 74176; 74176-26; 99285

== ENCOUNTER 2024-10-18 10:41 | Emergency (ER) | payer MEDICAID ==
[2024-10-18 11:15] LABS: BASOPHILS ABSOLUTE AUTO 0.05 K/uL (0.00-0.10); BASOPHILS PERCENT AUTO 0.6 % (0.1-1.3); EOSINOPHILS ABSOLUTE AUTO 0.16 K/uL (0.00-0.40); HEMATOCRIT 34.5 % (38.4-49.7); HEMOGLOBIN 11.6 g/dL (12.9-16.9); IMMATURE GRAN ABSOLUTE AUTO 0.13 K/uL (0.00-0.23); IMMATURE GRAN PERCENT AUTO 1.6 % (0.0-0.7); LYMPHOCYTES ABSOLUTE AUTO 1.87 K/uL (0.8-3.3); LYMPHOCYTES PERCENT AUTO 23.4 % (11.4-47.7); MEAN CORPUSCULAR HEMOGLOBIN 29.6 pg (31.6-35.5); MEAN CORPUSCULAR HGB CONC 33.6 g/dL (31.6-35.5); MONOCYTES ABSOLUTE AUTO 0.96 K/uL (0.20-0.90); NEUTROPHILS ABSOLUTE AUTO 4.81 K/uL (1.0-7.6); NEUTROPHILS PERCENT AUTO 60.4 % (40.0-78.1); PLATELET COUNT,PLT 169 K/uL (130-375); RED BLOOD CELL COUNT 3.92 M/uL (4.14-5.76)
[2024-10-18 11:36] LABS: A/G RATIO 1.1 (1.2-2.2); ALANINE AMINOTRANSFERASE,ALT 21 U/L (12-78); ALBUMIN 3.3 g/dL (3.4-5.0); ALKALINE PHOSPHATASE 82 U/L (46-116); ASPARTATE AMNIOTRANSFERASE,AST 17 U/L (15-37); BILIRUBIN TOTAL 0.3 mg/dL (0.2-1.0); BLOOD UREA NITROGEN,BUN 23 mg/dL (7-18); CARBON DIOXIDE,CO2 33 mmol/L (21-32); CHLORIDE,CL 100 mmol/L (100-108); CREATININE 1.5 mg/dL (0.8-1.3); EST CRCL DRUG DOSING (CG) 43.28 mL/min; ESTIMATED GFR 52 mL/min (>60); GLUCOSE RANDOM 97 mg/dL (74-106); POTASSIUM,K 3.3 mmol/L (3.6-5.2); PROTEIN TOTAL,TP 6.2 g/dL (6.4-8.2); SODIUM,NA 143 mmol/L (140-148)
[2024-10-18 11:38] LABS: ANION GAP 13.3 mmol/L (5.0-14.0)
[2024-10-18 11:53] VITALS: BP 134/75; PULSE 71
== END 2024-10-18 12:31 ==
LOC: JP.ED 10:41
DX: I95.9 Hypotension, unspecified (principal); I10 Essential (primary) hypertension; Z79.899 Other long term (current) drug therapy; Z79.01 Long term (current) use of anticoagulants
CPT/HCPCS: 36415; 80053; 83605; 85025; 99284

== ENCOUNTER 2024-11-30 14:59 | Emergency (ER) | payer MEDICAID ==
[2024-11-30 16:03] LABS: BASOPHILS ABSOLUTE AUTO 0.04 K/uL (0.00-0.10); BASOPHILS PERCENT AUTO 0.4 % (0.1-1.3); EOSINOPHILS ABSOLUTE AUTO 0.12 K/uL (0.00-0.40); EOSINOPHILS PERCENT AUTO 1.3 % (0.0-5.4); HEMATOCRIT 34.8 % (38.4-49.7); IMMATURE GRAN PERCENT AUTO 1.1 % (0.0-0.7); LYMPHOCYTES ABSOLUTE AUTO 1.87 K/uL (0.8-3.3); LYMPHOCYTES PERCENT AUTO 20.6 % (11.4-47.7); MEAN CORPUSCULAR HEMOGLOBIN 30.5 pg (31.6-35.5); MEAN CORPUSCULAR HGB CONC 34.5 g/dL (31.6-35.5); MEAN CORPUSCULAR VOLUME 88.3 fL (81.4-99.0); MONOCYTES ABSOLUTE AUTO 0.85 K/uL (0.20-0.90); MONOCYTES PERCENT AUTO 9.4 % (3.3-12.6); NEUTROPHILS ABSOLUTE AUTO 6.09 K/uL (1.0-7.6); NEUTROPHILS PERCENT AUTO 67.2 % (40.0-78.1); PLATELET COUNT,PLT 199 K/uL (130-375); RED BLOOD CELL COUNT 3.94 M/uL (4.14-5.76); WHITE BLOOD CELL COUNT,WBC 9.1 K/uL (3.2-11.0)
[2024-11-30 16:04] LABS: APPEARANCE,URINE CLEAR (CLEAR); BILIRUBIN,URINE NEGATIVE (NEGATIVE); COLOR,URINE YELLOW (YELLOW); GLUCOSE,URINE NEGATIVE (NEGATIVE); KETONES,URINE NEGATIVE (NEGATIVE); LEUKOCYTE ESTERASE,URINE NEGATIVE (NEGATIVE); NITRITE,URINE NEGATIVE (NEGATIVE); OCCULT BLOOD,URINE NEGATIVE (NEGATIVE); PH,URINE 6.5 (5.0-8.0); PROTEIN,URINE TRACE mg/dL (NEGATIVE); UROBILINOGEN,URINE 0.2 EU/dL (0.2-1.0)
[2024-11-30 16:09] LABS: AMORPHOUS SEDIMENT,URINE RARE; BACTERIA,URINE RARE; EPITHELIAL CELLS,URINE NOT SEEN; MUCUS,URINE NOT SEEN; RBC,URINE 0-5 (0-5); WBC,URINE 0-5 (0-5)
[2024-11-30 16:18] LABS: CALCIUM 9.1 mg/dL (8.5-10.1); EST CRCL DRUG DOSING (CG) 34.89 mL/min
[2024-11-30 16:26] VITALS: BP 113/59; PULSE 76
== END 2024-11-30 16:41 ==
LOC: JP.ED 14:59
DX: I95.9 Hypotension, unspecified (principal); I10 Essential (primary) hypertension; E03.9 Hypothyroidism, unspecified; Z79.899 Other long term (current) drug therapy; Z79.890 Hormone replacement therapy
CPT/HCPCS: 36415; 80048; 81001; 85025; 99284

== ENCOUNTER 2024-12-01 20:56 | Observation (INO) | payer MEDICAID ==
[2024-12-01 21:11] LABS: CREATININE 1.9 mg/dL (0.8-1.3); ESTIMATED GFR 39 mL/min (>60)
[2024-12-01 21:12] LABS: BASOPHILS ABSOLUTE AUTO 0.03 K/uL (0.00-0.10); BASOPHILS PERCENT AUTO 0.4 % (0.1-1.3); EOSINOPHILS ABSOLUTE AUTO 0.15 K/uL (0.00-0.40); EOSINOPHILS PERCENT AUTO 1.8 % (0.0-5.4); HEMATOCRIT 34.5 % (38.4-49.7); HEMOGLOBIN 11.9 g/dL (12.9-16.9); IMMATURE GRAN ABSOLUTE AUTO 0.13 K/uL (0.00-0.23); IMMATURE GRAN PERCENT AUTO 1.6 % (0.0-0.7); LYMPHOCYTES ABSOLUTE AUTO 1.85 K/uL (0.8-3.3); LYMPHOCYTES PERCENT AUTO 22.4 % (11.4-47.7); MEAN CORPUSCULAR HEMOGLOBIN 30.5 pg (31.6-35.5); MEAN CORPUSCULAR HGB CONC 34.5 g/dL (31.6-35.5); MEAN CORPUSCULAR VOLUME 88.5 fL (81.4-99.0); MONOCYTES ABSOLUTE AUTO 0.79 K/uL (0.20-0.90); MONOCYTES PERCENT AUTO 9.6 % (3.3-12.6); NEUTROPHILS ABSOLUTE AUTO 5.32 K/uL (1.0-7.6); NEUTROPHILS PERCENT AUTO 64.2 % (40.0-78.1); PLATELET COUNT,PLT 193 K/uL (130-375); WHITE BLOOD CELL COUNT,WBC 8.3 K/uL (3.2-11.0)
[2024-12-01 21:23] LABS: A/G RATIO 1.1 (1.2-2.2); ALANINE AMINOTRANSFERASE,ALT 25 U/L (12-78); ALBUMIN 3.3 g/dL (3.4-5.0); ALKALINE PHOSPHATASE 93 U/L (46-116); ASPARTATE AMNIOTRANSFERASE,AST 21 U/L (15-37); BILIRUBIN TOTAL 0.3 mg/dL (0.2-1.0); BLOOD UREA NITROGEN,BUN 24 mg/dL (7-18); C-REACTIVE PROTEIN 0.54 mg/dL (<0.50); CALCIUM 8.7 mg/dL (8.5-10.1); CARBON DIOXIDE,CO2 29 mmol/L (21-32); CHLORIDE,CL 95 mmol/L (100-108); GLUCOSE RANDOM 153 mg/dL (74-106); PROTEIN TOTAL,TP 6.3 g/dL (6.4-8.2); SODIUM,NA 137 mmol/L (140-148)
[2024-12-01 21:24] LABS: ANION GAP 15.5 mmol/L (5.0-14.0)
[2024-12-01 21:25] LABS: POTASSIUM,K 2.5 mmol/L (3.6-5.2)
[2024-12-01] MEDS: Sodium Chloride 0.9% 1,000 ML IV SCH ×2 (21:28→22:51)
[2024-12-01] MEDS: Ondansetron 4 MG/2 ML SDV IVPUSH ONE (21:35)
[2024-12-01] MEDS: HYDROmorphone 0.5 MG/0.5 ML Syringe IVPUSH ONE (21:55)
[2024-12-01] MEDS: Potassium Chloride 10 MEQ in Premix Bag 1 BAG IV SCH (22:02)
[2024-12-01] MEDS: Piperacillin/Tazobactam 4.5 GM in Sodium Chloride 0.9% 100 ML IV ONE (22:55)
[2024-12-01] MEDS: Potassium Chloride 10 MEQ in Premix Bag 1 BAG IV ONE (23:25)
[2024-12-02] MEDS ORDERED: Ondansetron 4 MG/2 ML SDV IV PRN (00:09)
[2024-12-02 00:24] LABS: APPEARANCE,URINE CLEAR (CLEAR); BILIRUBIN,URINE NEGATIVE (NEGATIVE); COLOR,URINE YELLOW (YELLOW); GLUCOSE,URINE NEGATIVE (NEGATIVE); KETONES,URINE NEGATIVE (NEGATIVE); LEUKOCYTE ESTERASE,URINE NEGATIVE (NEGATIVE); NITRITE,URINE NEGATIVE (NEGATIVE); OCCULT BLOOD,URINE NEGATIVE (NEGATIVE); PROTEIN,URINE 30 mg/dL (NEGATIVE); UROBILINOGEN,URINE 0.2 EU/dL (0.2-1.0)
[2024-12-02] MEDS ORDERED: LORazepam 1 MG Tab PO PRN (00:24)
[2024-12-02 00:31] LABS: AMORPHOUS SEDIMENT,URINE NOT SEEN; BACTERIA,URINE FEW; EPITHELIAL CELLS,URINE FEW; MUCUS,URINE FEW; RBC,URINE 0-5 (0-5); WBC,URINE 0-5 (0-5)
[2024-12-02] MEDS: Sodium Chloride 0.9% 1,000 ML IV SCH (01:38)
[2024-12-02] MEDS: Potassium Chloride 10 MEQ in Premix Bag 1 BAG IV SCH (02:19)
[2024-12-02 06:29] LABS: HEMOGLOBIN 12.2 g/dL (12.9-16.9); MEAN CORPUSCULAR HEMOGLOBIN 30.7 pg (31.6-35.5); MEAN CORPUSCULAR HGB CONC 34.9 g/dL (31.6-35.5); MEAN CORPUSCULAR VOLUME 88.2 fL (81.4-99.0); RED BLOOD CELL COUNT 3.97 M/uL (4.14-5.76); WHITE BLOOD CELL COUNT,WBC 5.5 K/uL (3.2-11.0)
[2024-12-02 06:44] LABS: CREATININE 1.6 mg/dL (0.8-1.3); EST CRCL DRUG DOSING (CG) 40.57 mL/min; POTASSIUM,K 3.4 mmol/L (3.6-5.2)
[2024-12-02 06:46] LABS: ANION GAP 10.4 mmol/L (5.0-14.0)
[2024-12-02] MEDS ORDERED: Calcium Carbonate 500 MG Tab.Chew PO PRN (07:14)
[2024-12-02] MEDS ORDERED: Non-Formulary Medication 1 Each (Famotidine [Famotidine] 40 MG Tablet) PO SCH (09:00)
[2024-12-02] MEDS: Doxazosin 4 MG Tab PO SCH (09:16)
[2024-12-02] MEDS: Sodium Chloride 5% Ophth Soln 15 ML Bottle EYEBOTH SCH (09:16)
[2024-12-02] MEDS: diphenhydrAMINE 25 MG Cap PO SCH (09:17)
[2024-12-02] MEDS: Citalopram 20 MG Tab PO SCH (09:17)
[2024-12-02] MEDS: Levothyroxine 25 MCG Tab PO SCH (09:17)
[2024-12-02] MEDS: Levothyroxine 112 MCG Tab PO SCH (09:17)
[2024-12-02] MEDS: Atenolol 25 MG Tab PO SCH (09:18)
[2024-12-02] MEDS: Haloperidol 5 MG Tab PO SCH (09:18)
[2024-12-02] MEDS: Sennosides/Docusate Sodium 50-8.6 MG Tab PO SCH (09:18)
[2024-12-02] MEDS: Polyethylene Glycol 3350 Powder 17 GM Packet PO SCH (09:19)
[2024-12-02] MEDS: Famotidine 20 MG Tab PO SCH (09:19)
[2024-12-02] MEDS: Potassium Chloride 20 MEQ Tab.ER PO ONE (09:47)
[2024-12-02 11:58] VITALS: BP 111/78; PULSE 87
[2024-12-02] MEDS ORDERED: diphenhydrAMINE 25 MG Cap PO SCH (17:00)
[2024-12-02] MEDS ORDERED: Divalproex Sodium Delayed-Release 250 MG Tab.CR PO SCH (21:00)
== END 2024-12-02 14:55 ==
LOC: JP.ED 20:56 → JP.MS 12-02 00:09
PROVIDERS: ADMIT Family Medicine; ATTEND Hospitalist
DX: K59.01 Slow transit constipation (principal); R14.0 Abdominal distension (gaseous); E87.6 Hypokalemia; F20.9 Schizophrenia, unspecified; E03.9 Hypothyroidism, unspecified; K21.9 Gastro-esophageal reflux disease without esophagitis; Z79.890 Hormone replacement therapy; Z79.899 Other long term (current) drug therapy
CPT/HCPCS: 36415; 71045; 74176; 80048; 80053; 81001; 83605; 83690; 83735; 84484; 85025; 85027; 86140; 93005; 96361; 96365; 96366; 96367; 96375; 99238; 99285; A9270; G0378; J2405; J2543; J3480; J7030; 93010; 99284

== ENCOUNTER 2024-12-16 09:44 | Inpatient (IN) | payer MEDICAID ==
[2024-12-16 10:29] LABS: BASOPHILS ABSOLUTE AUTO 0.03 K/uL (0.00-0.10); BASOPHILS PERCENT AUTO 0.2 % (0.1-1.3); EOSINOPHILS ABSOLUTE AUTO 0.03 K/uL (0.00-0.40); EOSINOPHILS PERCENT AUTO 0.2 % (0.0-5.4); HEMATOCRIT 34.4 % (38.4-49.7); HEMOGLOBIN 11.5 g/dL (12.9-16.9); IMMATURE GRAN ABSOLUTE AUTO 0.15 K/uL (0.00-0.23); IMMATURE GRAN PERCENT AUTO 0.9 % (0.0-0.7); LYMPHOCYTES ABSOLUTE AUTO 1.28 K/uL (0.8-3.3); LYMPHOCYTES PERCENT AUTO 8.1 % (11.4-47.7); MEAN CORPUSCULAR HEMOGLOBIN 30.4 pg (31.6-35.5); MEAN CORPUSCULAR HGB CONC 33.4 g/dL (31.6-35.5); MONOCYTES ABSOLUTE AUTO 1.36 K/uL (0.20-0.90); MONOCYTES PERCENT AUTO 8.6 % (3.3-12.6); NEUTROPHILS ABSOLUTE AUTO 12.99 K/uL (1.0-7.6); PLATELET COUNT,PLT 158 K/uL (130-375); RED BLOOD CELL COUNT 3.78 M/uL (4.14-5.76); WHITE BLOOD CELL COUNT,WBC 15.8 K/uL (3.2-11.0)
[2024-12-16 10:51] LABS: A/G RATIO 0.7 (1.2-2.2); ALANINE AMINOTRANSFERASE,ALT 17 U/L (12-78); ALBUMIN 2.6 g/dL (3.4-5.0); ALKALINE PHOSPHATASE 71 U/L (46-116); ASPARTATE AMNIOTRANSFERASE,AST 9 U/L (15-37); BILIRUBIN TOTAL 0.6 mg/dL (0.2-1.0); BLOOD UREA NITROGEN,BUN 28 mg/dL (7-18); CALCIUM 8.7 mg/dL (8.5-10.1); CARBON DIOXIDE,CO2 34 mmol/L (21-32); CHLORIDE,CL 98 mmol/L (100-108); CREATININE 1.9 mg/dL (0.8-1.3); EST CRCL DRUG DOSING (CG) 35.44 mL/min; ESTIMATED GFR 39 mL/min (>60); GLUCOSE RANDOM 102 mg/dL (74-106); PROTEIN TOTAL,TP 6.1 g/dL (6.4-8.2); SODIUM,NA 140 mmol/L (140-148)
[2024-12-16] MEDS: Sodium Chloride 0.9% 80 ML IV SCH (10:52)
[2024-12-16] MEDS: Sodium Chloride 0.9% 10 ML Syringe FLUSH ONE (10:52)
[2024-12-16 10:53] LABS: ANION GAP 10.9 mmol/L (5.0-14.0)
[2024-12-16] MEDS: Iopamidol 612 MG/ML 100 ML Bottle IV SCH (10:53)
[2024-12-16 10:54] LABS: POTASSIUM,K 2.9 mmol/L (3.6-5.2)
[2024-12-16] MEDS: Potassium Chloride 20 MEQ in Premix Bag 1 BAG IV ONE (11:00)
[2024-12-16] MEDS: Potassium Chloride 20 MEQ Tab.ER PO ONE (11:00)
[2024-12-16] MEDS: Sodium Chloride 0.9% 1,000 ML IV STA (11:07)
[2024-12-16] MEDS: Sodium Chloride 0.9% 10 ML Syringe FLUSH PRN (11:07)
[2024-12-16 11:32] LABS: APPEARANCE,URINE CLEAR (CLEAR); COLOR,URINE YELLOW (YELLOW)
[2024-12-16 11:33] LABS: AMORPHOUS SEDIMENT,URINE RARE; BACTERIA,URINE NOT SEEN; BILIRUBIN,URINE NEGATIVE (NEGATIVE); EPITHELIAL CELLS,URINE NOT SEEN; GLUCOSE,URINE NORMAL (NEGATIVE); KETONES,URINE NEGATIVE (NEGATIVE); LEUKOCYTE ESTERASE,URINE NEGATIVE (NEGATIVE); MUCUS,URINE NOT SEEN; NITRITE,URINE NEGATIVE (NEGATIVE); OCCULT BLOOD,URINE NEGATIVE (NEGATIVE); PROTEIN,URINE 30 mg/dL (NEGATIVE); RBC,URINE 0-5 (0-5); UROBILINOGEN,URINE 0.2 EU/dL (0.2-1.0); WBC,URINE 0-5 (0-5)
[2024-12-16] MEDS: Piperacillin/Tazobactam 4.5 GM in Sodium Chloride 0.9% 100 ML IV ONE (12:21)
[2024-12-16] MEDS: Factor IX Complex Human 500 UNIT VIAL IV ONE (12:53)
[2024-12-16] MEDS ORDERED: Acetaminophen 325 MG Tab PO PRN (14:49)
[2024-12-16] MEDS ORDERED: Lactated Ringers 1,000 ML IV SCH (15:00)
[2024-12-16] MEDS ORDERED: Rocuronium 50 MG/5 ML Vial ONE ×2 (15:14→16:29)
[2024-12-16] MEDS ORDERED: Ondansetron 4 MG/2 ML SDV ONE (15:14)
[2024-12-16] MEDS ORDERED: Propofol 200 MG/20 ML SDV ONE (15:14)
[2024-12-16] MEDS ORDERED: Dexamethasone 4 MG/ML SDV ONE (15:14)
[2024-12-16] MEDS ORDERED: Glycopyrrolate 0.2 MG/ML 5 ML MDV ONE (15:14)
[2024-12-16] MEDS ORDERED: Succinylcholine 200 MG/10 ML MDV ONE (15:14)
[2024-12-16] MEDS ORDERED: Neostigmine Methylsulfate 10 MG/10 ML MDV ONE (15:14)
[2024-12-16] MEDS ORDERED: fentaNYL 250 MCG/5 ML SDV ONE (15:15)
[2024-12-16] MEDS ORDERED: Lactated Ringers 1,000 ML ONE (15:52)
[2024-12-16] MEDS ORDERED: Sugammadex Sodium 200 MG/2 ML VIAL IV ONE (16:56)
[2024-12-16] MEDS: Piperacillin/Tazobactam 3.375 GM in Sodium Chloride 0.9% 50 ML IV SCH (18:32)
[2024-12-16] MEDS ORDERED: LORazepam 1 MG Tab PO PRN (19:29)
[2024-12-16] MEDS: Bisacodyl 5 MG Tab PO SCH (21:47)
[2024-12-16] MEDS: Famotidine 20 MG Tab PO ONE (21:47)
[2024-12-16] MEDS: Sennosides/Docusate Sodium 50-8.6 MG Tab PO SCH (21:47)
[2024-12-16] MEDS: Polyethylene Glycol 3350 Powder 17 GM Packet PO SCH (21:47)
[2024-12-16] MEDS: Divalproex Sodium Delayed-Release 250 MG Tab.CR PO SCH (21:47)
[2024-12-16] MEDS: Haloperidol 5 MG Tab PO SCH (21:47)
[2024-12-16] MEDS: Sodium Chloride 5% Ophth Soln 15 ML Bottle EYEBOTH SCH (22:00)
[2024-12-16] MEDS ORDERED: Piperacillin/Tazobactam/Dext 4.5 GM in Premix Bag 1 BAG IV SCH (22:00)
[2024-12-16] MEDS: Dextrose 5%-Lactated Ringers 1,000 ML IV SCH (22:00)
[2024-12-16] MEDS: Piperacillin/Tazobactam/Dext 4.5 GM in Premix Bag 1 BAG IV SCH (23:58)
[2024-12-17] MEDS: Morphine 2 MG/ML SYRINGE IVPUSH PRN (03:07)
[2024-12-17 06:22] LABS: HEMATOCRIT 28.5 % (38.4-49.7); HEMOGLOBIN 9.5 g/dL (12.9-16.9); MEAN CORPUSCULAR HEMOGLOBIN 29.8 pg (31.6-35.5); MEAN CORPUSCULAR HGB CONC 33.3 g/dL (31.6-35.5); MEAN CORPUSCULAR VOLUME 89.3 fL (81.4-99.0); RED BLOOD CELL COUNT 3.19 M/uL (4.14-5.76); WHITE BLOOD CELL COUNT,WBC 10.8 K/uL (3.2-11.0)
[2024-12-17 06:40] LABS: ANION GAP 7.5 mmol/L (5.0-14.0); CALCIUM 8.3 mg/dL (8.5-10.1); CREATININE 1.3 mg/dL (0.8-1.3); EST CRCL DRUG DOSING (CG) 52.07 mL/min; POTASSIUM,K 3.9 mmol/L (3.6-5.2)
[2024-12-17] MEDS ORDERED: Ketorolac 15 MG/ML SDV IVPUSH PRN (08:07)
[2024-12-17] MEDS: Sodium Chloride 0.9% 1,000 ML IV SCH (08:42)
[2024-12-17] MEDS ORDERED: Acetaminophen Soln 160 MG/5 ML UD Cup NGTUBE PRN (08:45)
[2024-12-17] MEDS ORDERED: LORazepam 1 MG Tab NGTUBE PRN (08:53)
[2024-12-17] MEDS ORDERED: Atenolol 25 MG Tab PO SCH (09:00)
[2024-12-17] MEDS ORDERED: Polyethylene Glycol 3350 Powder 17 GM Packet NGTUBE SCH (09:00)
[2024-12-17] MEDS ORDERED: Rivaroxaban 10 MG Tab PO SCH (09:00)
[2024-12-17] MEDS ORDERED: Famotidine 20 MG Tab PO SCH (09:00)
[2024-12-17] MEDS ORDERED: Doxazosin 4 MG Tab PO SCH (09:00)
[2024-12-17] MEDS ORDERED: diphenhydrAMINE 25 MG Cap PO SCH ×2 (09:00→17:00)
[2024-12-17] MEDS ORDERED: Hydrochlorothiazide 25 MG Tab PO SCH (09:00)
[2024-12-17] MEDS: Levothyroxine 25 MCG Tab PO SCH (09:18)
[2024-12-17] MEDS: Levothyroxine 112 MCG Tab PO SCH (09:18)
[2024-12-17] MEDS: Levothyroxine 25 MCG Tab NGTUBE SCH (09:48)
[2024-12-17] MEDS: Polyethylene Glycol 3350 Powder 17 GM Packet NGTUBE SCH (09:48)
[2024-12-17] MEDS: Levothyroxine 112 MCG Tab NGTUBE SCH (09:48)
[2024-12-17] MEDS: Hydrochlorothiazide 25 MG Tab NGTUBE SCH (09:49)
[2024-12-17] MEDS: Famotidine 20 MG Tab NGTUBE SCH (09:49)
[2024-12-17] MEDS: Haloperidol 5 MG Tab NGTUBE SCH (09:49)
[2024-12-17] MEDS: Sennosides/Docusate Sodium 50-8.6 MG Tab NGTUBE SCH (09:50)
[2024-12-17] MEDS: Valproic Acid 250 MG/5 ML Syrup ML (473 ML Bottle) NGTUBE SCH (09:51)
[2024-12-17] MEDS: Bisacodyl 5 MG Tab SCH (10:00)
[2024-12-17] MEDS: Enoxaparin 40 MG/0.4 ML Syringe SUBCUT SCH (10:00)
[2024-12-17] MEDS: diphenhydrAMINE 25 MG/10 ML Cup NGTUBE SCH ×2 (10:01→20:45)
[2024-12-17] MEDS: Atenolol 25 MG Tab NGTUBE ONE (10:09)
[2024-12-17] MEDS: Sodium Phosphate,Monobasic/Sodium Phosphate,Dibasic Enema 133 ML Bottle RECTAL SCH (11:27)
[2024-12-17] MEDS ORDERED: Acetaminophen Soln 650 MG/20.3 ML UD Cup NGTUBE PRN (13:21)
[2024-12-17] MEDS ORDERED: Citalopram 20 MG Tab PO SCH (17:00)
[2024-12-17] MEDS: CLOZAPINE 100 MG PO SCH (20:43)
[2024-12-17] MEDS: Citalopram 20 MG Tab NGTUBE SCH (20:45)
[2024-12-18 06:01] LABS: CREATININE 1.3 mg/dL (0.8-1.3); EST CRCL DRUG DOSING (CG) 52.07 mL/min; MAGNESIUM 1.5 mg/dL (1.8-2.4); POTASSIUM,K 3.3 mmol/L (3.6-5.2)
[2024-12-18 06:05] LABS: CALCIUM 8.3 mg/dL (8.5-10.1)
[2024-12-18 06:06] LABS: ANION GAP 11.3 mmol/L (5.0-14.0)
[2024-12-18] MEDS: Potassium Chloride 10 MEQ in Premix Bag 1 BAG IV SCH (09:01)
[2024-12-18] MEDS: Atenolol 25 MG Tab NGTUBE SCH (09:19)
[2024-12-18] MEDS: Doxazosin 4 MG Tab NGTUBE SCH (09:20)
[2024-12-18] MEDS: Magnesium Sulfate 2 GM/50 mL 2 GM in Premix Bag 1 BAG IV SCH ×2 (09:55→14:26)
[2024-12-18] MEDS: Sodium Phosphate,Monobasic/Sodium Phosphate,Dibasic Enema 133 ML Bottle RECTAL ONE (13:28)
[2024-12-18] MEDS ORDERED: LORazepam 1 MG Tab PO PRN (13:47)
[2024-12-18] MEDS: Valproic Acid 250 MG/5 ML Syrup ML (473 ML Bottle) PO SCH (14:18)
[2024-12-18] MEDS: Sodium Chloride 0.9% 1,000 ML IV SCH (14:25)
[2024-12-18] MEDS: Acetaminophen 325 MG Tab PO PRN (14:26)
[2024-12-18] MEDS: diphenhydrAMINE 25 MG Cap PO SCH (21:38)
[2024-12-18] MEDS: Divalproex Sodium Delayed-Release 250 MG Tab.CR PO SCH (21:40)
[2024-12-18] MEDS: Polyethylene Glycol 3350 Powder 17 GM Packet PO SCH (21:40)
[2024-12-18] MEDS: Haloperidol 5 MG Tab PO SCH (21:40)
[2024-12-18] MEDS: Famotidine 20 MG Tab PO SCH (21:41)
[2024-12-18] MEDS: Bisacodyl 5 MG Tab PO SCH (21:41)
[2024-12-18] MEDS: Sennosides/Docusate Sodium 50-8.6 MG Tab PO SCH (21:42)
[2024-12-18] MEDS: Citalopram 20 MG Tab PO SCH (21:42)
[2024-12-19 05:46] LABS: HEMATOCRIT 27.3 % (38.4-49.7); HEMOGLOBIN 8.8 g/dL (12.9-16.9); MEAN CORPUSCULAR HEMOGLOBIN 29.9 pg (31.6-35.5); MEAN CORPUSCULAR HGB CONC 32.2 g/dL (31.6-35.5); MEAN CORPUSCULAR VOLUME 92.9 fL (81.4-99.0); RED BLOOD CELL COUNT 2.94 M/uL (4.14-5.76); WHITE BLOOD CELL COUNT,WBC 6.7 K/uL (3.2-11.0)
[2024-12-19 06:03] LABS: ANION GAP 9.2 mmol/L (5.0-14.0); CALCIUM 8.6 mg/dL (8.5-10.1); CREATININE 1.2 mg/dL (0.8-1.3); EST CRCL DRUG DOSING (CG) 56.41 mL/min; MAGNESIUM 2.8 mg/dL (1.8-2.4); POTASSIUM,K 3.2 mmol/L (3.6-5.2)
[2024-12-19] MEDS: Levothyroxine 112 MCG Tab PO SCH (07:28)
[2024-12-19] MEDS: Levothyroxine 25 MCG Tab PO SCH (07:29)
[2024-12-19] MEDS ORDERED: Acetaminophen/oxyCODONE 325-5 MG Tab PO PRN (08:06)
[2024-12-19] MEDS: diphenhydrAMINE 25 MG Cap PO SCH (08:24)
[2024-12-19] MEDS: Atenolol 25 MG Tab PO SCH (08:25)
[2024-12-19] MEDS: Hydrochlorothiazide 25 MG Tab PO SCH (08:25)
[2024-12-19] MEDS: Doxazosin 4 MG Tab PO SCH (08:27)
[2024-12-19] MEDS: Potassium Chloride 10 MEQ in Premix Bag 1 BAG IV SCH (09:21)
[2024-12-19] MEDS: Docusate Sodium 100 MG Cap PO SCH (09:30)
[2024-12-20 06:13] LABS: HEMATOCRIT 26.2 % (38.4-49.7); HEMOGLOBIN 8.7 g/dL (12.9-16.9); MEAN CORPUSCULAR HEMOGLOBIN 30.3 pg (31.6-35.5); MEAN CORPUSCULAR HGB CONC 33.2 g/dL (31.6-35.5); MEAN CORPUSCULAR VOLUME 91.3 fL (81.4-99.0); RED BLOOD CELL COUNT 2.87 M/uL (4.14-5.76); WHITE BLOOD CELL COUNT,WBC 7.1 K/uL (3.2-11.0)
[2024-12-20 06:29] LABS: CALCIUM 8.4 mg/dL (8.5-10.1); CREATININE 1.3 mg/dL (0.8-1.3); EST CRCL DRUG DOSING (CG) 52.07 mL/min
[2024-12-20] MEDS: Potassium Chloride 10 MEQ in Premix Bag 1 BAG IV SCH (09:07)
[2024-12-21 06:31] LABS: CALCIUM 8.4 mg/dL (8.5-10.1); CREATININE 1.2 mg/dL (0.8-1.3); EST CRCL DRUG DOSING (CG) 56.41 mL/min; POTASSIUM,K 3.1 mmol/L (3.6-5.2)
[2024-12-21 06:35] LABS: ANION GAP 11.1 mmol/L (5.0-14.0)
[2024-12-21] MEDS: Potassium Chloride 20 MEQ Tab.ER PO ONE (08:18)
[2024-12-21 11:50] VITALS: BP 123/58; PULSE 77
== END 2024-12-21 15:44 | disposition home or self-care (01) | DRG 358 ==
LOC: JP.ED 09:44 → JP.SDS 12:21 → JP.MS 14:44
PROVIDERS: ADMIT Surgery; ATTEND Surgery
PROC: 0W9G30Z Drainage of Peritoneal Cavity with Drainage Device, Percutaneous Approach (ICD-10-PCS; principal; 2024-12-16 14:30)
PROC: 0DJD0ZZ Inspection of Lower Intestinal Tract, Open Approach (ICD-10-PCS; principal; 2024-12-16 14:30)
DX: K63.1 Perforation of intestine (nontraumatic) (principal); K59.01 Slow transit constipation; E87.6 Hypokalemia; F20.9 Schizophrenia, unspecified; I95.9 Hypotension, unspecified; H26.9 Unspecified cataract; H40.9 Unspecified glaucoma; I10 Essential (primary) hypertension; K59.09 Other constipation; K21.9 Gastro-esophageal reflux disease without esophagitis; H18.519 Endothelial corneal dystrophy, unspecified eye; F41.9 Anxiety disorder, unspecified; F32.A Depression, unspecified; E03.9 Hypothyroidism, unspecified; Z79.01 Long term (current) use of anticoagulants; Z79.899 Other long term (current) drug therapy; Z86.718 Personal history of other venous thrombosis and embolism
CPT/HCPCS: 00840-QZ; 36415; 74177; 74177-26; 80048; 80053; 81001; 83605; 83690; 83735; 85025; 85027; 86850; 86870; 86900; 86901; 86902; 86920; 86922; 96365; 96366; 96367; 96368; 99222; 99232; 99238; 99285; 99285-25; A9270-GY; J0330; J1100; J1596; J1650; J2270; J2405; J2543; J2704; J2710; J3010; J3475; J3480; J3490; J7030; J7120; J7121; J7168; Q9967

== ENCOUNTER 2024-12-23 08:26 | Emergency (ER) | payer MEDICAID ==
[2024-12-23 08:51] LABS: BASE EXCESS ARTERIAL 4.1 mm/L; BICARBONATE,ARTERIAL 27.8 mmol/L (22.0-26.0); CARBOXYHEMOGLOBIN 3.1 % (0.0-1.6); METHEMOGLOBIN 1.2 %; O2 SATURATION ARTERIAL 97.4 % (95.0-98.0); OXYHEMOGLOBIN 93.2 %; TOTAL HEMOGLOBIN 9.7 g/dL (13.5-18.0)
[2024-12-23 08:51] LABS: HEMATOCRIT 28.2 % (38.4-49.7); HEMOGLOBIN 9.2 g/dL (12.9-16.9); MEAN CORPUSCULAR HGB CONC 32.6 g/dL (31.6-35.5); MEAN CORPUSCULAR VOLUME 91.9 fL (81.4-99.0); PLATELET COUNT,PLT 239 K/uL (130-375); RED BLOOD CELL COUNT 3.07 M/uL (4.14-5.76); WHITE BLOOD CELL COUNT,WBC 8.6 K/uL (3.2-11.0)
[2024-12-23 08:53] LABS: PO2 ARTERIAL 87.1 mmHg (75.0-100.0)
[2024-12-23 09:17] LABS: BAND ABSOLUTE MAN 1.03 K/uL; BAND PERCENT MAN 12 % (5-11); EOSINOPHILS ABSOLUTE MAN 0.26 K/uL (0.00-0.40); EOSINOPHILS PERCENT MAN 3 % (2-4); LYMPHOCYTES ABSOLUTE MAN 2.84 K/uL (0.8-3.3); LYMPHOCYTES PERCENT MAN 33 % (24-44); MONOCYTES ABSOLUTE MAN 0.69 K/uL (0.20-0.90); MONOCYTES PERCENT MAN 8 % (2-6); NEUTROPHILS ABSOLUTE MAN 3.78 K/uL (1.0-7.6); SEG NEUTROPHILS PERCENT MAN 44 % (36-66)
[2024-12-23 09:22] LABS: A/G RATIO 0.8 (1.2-2.2); ALANINE AMINOTRANSFERASE,ALT 35 U/L (12-78); ALBUMIN 2.4 g/dL (3.4-5.0); ALKALINE PHOSPHATASE 80 U/L (46-116); ASPARTATE AMNIOTRANSFERASE,AST 27 U/L (15-37); BILIRUBIN TOTAL 0.3 mg/dL (0.2-1.0); BLOOD UREA NITROGEN,BUN 10 mg/dL (7-18); C-REACTIVE PROTEIN 2.56 mg/dL (<0.50); CALCIUM 8.7 mg/dL (8.5-10.1); CARBON DIOXIDE,CO2 31 mmol/L (21-32); CHLORIDE,CL 106 mmol/L (100-108); CREATININE 1.1 mg/dL (0.8-1.3); EST CRCL DRUG DOSING (CG) 65.64 mL/min; ESTIMATED GFR 75 mL/min (>60); GLUCOSE RANDOM 90 mg/dL (74-106); POTASSIUM,K 3.1 mmol/L (3.6-5.2); PROTEIN TOTAL,TP 5.6 g/dL (6.4-8.2); SODIUM,NA 142 mmol/L (140-148); TROPONIN I HIGH SENSITIVITY 5.8 pg/mL (<=60.3)
[2024-12-23 09:27] LABS: LACTIC ACID 0.4 mmol/L (0.4-2.0)
[2024-12-23 09:28] LABS: ANION GAP 8.1 mmol/L (5.0-14.0)
[2024-12-23] MEDS: Sodium Chloride 0.9% 10 ML Syringe FLUSH PRN (09:56)
[2024-12-23] MEDS: Iopamidol 612 MG/ML 100 ML Bottle IV PRN (09:56)
[2024-12-23] MEDS: Sodium Chloride 0.9% 80 ML IV SCH (09:56)
[2024-12-23 11:13] LABS: APPEARANCE,URINE CLEAR (CLEAR); BILIRUBIN,URINE NEGATIVE (NEGATIVE); COLOR,URINE YELLOW (YELLOW); GLUCOSE,URINE NEGATIVE (NEGATIVE); KETONES,URINE NEGATIVE (NEGATIVE); LEUKOCYTE ESTERASE,URINE NEGATIVE (NEGATIVE); NITRITE,URINE NEGATIVE (NEGATIVE); OCCULT BLOOD,URINE NEGATIVE (NEGATIVE); PROTEIN,URINE NEGATIVE (NEGATIVE); UROBILINOGEN,URINE 0.2 EU/dL (0.2-1.0)
[2024-12-23 11:25] LABS: AMORPHOUS SEDIMENT,URINE NOT SEEN; BACTERIA,URINE NOT SEEN; EPITHELIAL CELLS,URINE NOT SEEN; MUCUS,URINE NOT SEEN; RBC,URINE 0-5 (0-5); WBC,URINE 0-5 (0-5)
[2024-12-23] MEDS: Piperacillin/Tazobactam 4.5 GM in Sodium Chloride 0.9% 100 ML IV ONE (11:56)
[2024-12-23 17:51] VITALS: BP 140/75; PULSE 86
== END 2024-12-23 18:25 ==
LOC: JP.ED 08:26
DX: K63.1 Perforation of intestine (nontraumatic) (principal); R14.0 Abdominal distension (gaseous); I10 Essential (primary) hypertension; K21.9 Gastro-esophageal reflux disease without esophagitis; E03.9 Hypothyroidism, unspecified; Z79.899 Other long term (current) drug therapy; Z79.890 Hormone replacement therapy
CPT/HCPCS: 36415; 36600; 51798; 70450; 71045; 74177; 80053; 81001; 82140; 82803; 83605; 84443; 84484; 85025; 86140; 87040; 96365; 99285; C1758; J2543; Q9967

== ENCOUNTER 2025-01-08 18:53 | Inpatient (IN) | payer MEDICAID ==
[2025-01-08] MEDS: Ondansetron 4 MG/2 ML SDV IVPUSH ONE (20:21)
[2025-01-08] MEDS: Sodium Chloride 0.9% 10 ML Syringe FLUSH PRN (20:23)
[2025-01-08] MEDS: fentaNYL 100 MCG/2 ML SDV IVPUSH ONE (20:23)
[2025-01-08 20:24] LABS: BASOPHILS ABSOLUTE AUTO 0.03 K/uL (0.00-0.10); BASOPHILS PERCENT AUTO 0.3 % (0.1-1.3); EOSINOPHILS ABSOLUTE AUTO 0.06 K/uL (0.00-0.40); EOSINOPHILS PERCENT AUTO 0.5 % (0.0-5.4); HEMATOCRIT 34.3 % (38.4-49.7); HEMOGLOBIN 10.9 g/dL (12.9-16.9); IMMATURE GRAN ABSOLUTE AUTO 0.13 K/uL (0.00-0.23); IMMATURE GRAN PERCENT AUTO 1.1 % (0.0-0.7); LYMPHOCYTES ABSOLUTE AUTO 1.49 K/uL (0.8-3.3); LYMPHOCYTES PERCENT AUTO 12.6 % (11.4-47.7); MEAN CORPUSCULAR HEMOGLOBIN 29.9 pg (31.6-35.5); MEAN CORPUSCULAR HGB CONC 31.8 g/dL (31.6-35.5); MONOCYTES ABSOLUTE AUTO 0.92 K/uL (0.20-0.90); MONOCYTES PERCENT AUTO 7.8 % (3.3-12.6); NEUTROPHILS PERCENT AUTO 77.7 % (40.0-78.1); PLATELET COUNT,PLT 208 K/uL (130-375); RED BLOOD CELL COUNT 3.65 M/uL (4.14-5.76); WHITE BLOOD CELL COUNT,WBC 11.8 K/uL (3.2-11.0)
[2025-01-08 20:49] LABS: A/G RATIO 0.8 (1.2-2.2); ALANINE AMINOTRANSFERASE,ALT 20 U/L (12-78); ALBUMIN 3.3 g/dL (3.4-5.0); ALKALINE PHOSPHATASE 111 U/L (46-116); ANION GAP 13.1 mmol/L (5.0-14.0); ASPARTATE AMNIOTRANSFERASE,AST 17 U/L (15-37); BILIRUBIN TOTAL 0.3 mg/dL (0.2-1.0); BLOOD UREA NITROGEN,BUN 30 mg/dL (7-18); CALCIUM 9.6 mg/dL (8.5-10.1); CARBON DIOXIDE,CO2 30 mmol/L (21-32); CHLORIDE,CL 101 mmol/L (100-108); CREATININE 2.1 mg/dL (0.8-1.3); EST CRCL DRUG DOSING (CG) 30.91 mL/min; ESTIMATED GFR 35 mL/min (>60); GLUCOSE RANDOM 117 mg/dL (74-106); POTASSIUM,K 3.1 mmol/L (3.6-5.2); PROTEIN TOTAL,TP 7.4 g/dL (6.4-8.2); SODIUM,NA 141 mmol/L (140-148)
[2025-01-08] MEDS: Iopamidol 612 MG/ML 100 ML Bottle IV SCH (21:09)
[2025-01-08] MEDS: Sodium Chloride 0.9% 10 ML Syringe FLUSH ONE (21:09)
[2025-01-08] MEDS: Sodium Chloride 0.9% 80 ML IV SCH (21:09)
[2025-01-08] MEDS: Sodium Chloride 0.9% 1,000 ML IV STA (21:11)
[2025-01-08] MEDS: Piperacillin/Tazobactam 4.5 GM in Sodium Chloride 0.9% 100 ML IV ONE (21:58)
[2025-01-08 22:00] LABS: APPEARANCE,URINE CLEAR (CLEAR); BILIRUBIN,URINE NEGATIVE (NEGATIVE); COLOR,URINE YELLOW (YELLOW); GLUCOSE,URINE NEGATIVE (NEGATIVE); KETONES,URINE NEGATIVE (NEGATIVE); LEUKOCYTE ESTERASE,URINE NEGATIVE (NEGATIVE); NITRITE,URINE NEGATIVE (NEGATIVE); OCCULT BLOOD,URINE SMALL (NEGATIVE); PROTEIN,URINE 30 mg/dL (NEGATIVE); UROBILINOGEN,URINE 0.2 EU/dL (0.2-1.0)
[2025-01-08 22:09] LABS: AMORPHOUS SEDIMENT,URINE NOT SEEN; BACTERIA,URINE FEW; EPITHELIAL CELLS,URINE FEW; MUCUS,URINE NOT SEEN; WBC,URINE 0-5 (0-5)
[2025-01-08] MEDS: Sodium Chloride 0.9% 1,000 ML IV SCH (22:39)
[2025-01-08] MEDS ORDERED: Acetaminophen 325 MG Tab PO PRN (22:53)
[2025-01-08] MEDS ORDERED: Naloxone 0.4 MG/ML SDV IVPUSH PRN (22:53)
[2025-01-08] MEDS ORDERED: HYDROmorphone 0.5 MG/0.5 ML Syringe IVPUSH PRN (22:53)
[2025-01-08] MEDS ORDERED: Ondansetron 4 MG/2 ML SDV IV PRN (22:53)
[2025-01-08] MEDS ORDERED: LORazepam 1 MG Tab PO PRN (23:29)
[2025-01-08] MEDS: Potassium Chloride 20 MEQ Tab.ER PO ONE (23:30)
[2025-01-09 00:31] LABS: LACTIC ACID 2.3 mmol/L (0.7-2.1)
[2025-01-09] MEDS: Melatonin 3 MG Tab PO PRN (00:57)
[2025-01-09] MEDS: Sodium Chloride 0.9% 1,000 ML IV SCH (01:32)
[2025-01-09 05:50] LABS: HEMATOCRIT 30.4 % (38.4-49.7); HEMOGLOBIN 9.8 g/dL (12.9-16.9); MEAN CORPUSCULAR HEMOGLOBIN 29.9 pg (31.6-35.5); MEAN CORPUSCULAR HGB CONC 32.2 g/dL (31.6-35.5); MEAN CORPUSCULAR VOLUME 92.7 fL (81.4-99.0); RED BLOOD CELL COUNT 3.28 M/uL (4.14-5.76); WHITE BLOOD CELL COUNT,WBC 8.1 K/uL (3.2-11.0)
[2025-01-09] MEDS: Sodium Chloride 5% Ophth Soln 15 ML Bottle EYEBOTH SCH (06:16)
[2025-01-09 06:20] LABS: ANION GAP 10.2 mmol/L (5.0-14.0); CALCIUM 8.5 mg/dL (8.5-10.1); CREATININE 1.6 mg/dL (0.8-1.3); EST CRCL DRUG DOSING (CG) 40.57 mL/min; MAGNESIUM 1.7 mg/dL (1.8-2.4); POTASSIUM,K 3.2 mmol/L (3.6-5.2); TSH ULTRASENSITIVE 3.697 uIU/mL (0.358-3.740)
[2025-01-09] MEDS: Pantoprazole 40 MG Tab.CR PO SCH (07:46)
[2025-01-09] MEDS: Levothyroxine 112 MCG Tab PO SCH (07:46)
[2025-01-09] MEDS: Levothyroxine 25 MCG Tab PO SCH (07:46)
[2025-01-09] MEDS: Atenolol 25 MG Tab PO SCH (08:30)
[2025-01-09] MEDS: Sennosides/Docusate Sodium 50-8.6 MG Tab PO SCH (08:30)
[2025-01-09] MEDS: Rivaroxaban 10 MG Tab PO SCH (08:30)
[2025-01-09] MEDS: Haloperidol 5 MG Tab PO SCH (08:31)
[2025-01-09] MEDS: Doxazosin 4 MG Tab PO SCH (08:31)
[2025-01-09] MEDS: Hydrochlorothiazide 25 MG Tab PO SCH (08:31)
[2025-01-09] MEDS: diphenhydrAMINE 25 MG Cap PO SCH ×2 (08:33→20:50)
[2025-01-09] MEDS: Potassium Chloride 20 MEQ Tab.ER PO ONE ×2 (09:17→18:46)
[2025-01-09] MEDS: Magnesium Sulfate 2 GM/50 mL 2 GM in Premix Bag 1 BAG IV SCH (09:17)
[2025-01-09] MEDS: Magnesium Oxide 400 MG Tab PO SCH (09:17)
[2025-01-09] MEDS: Polyethylene Glycol 3350 Powder 17 GM Packet PO SCH (09:57)
[2025-01-09] MEDS: Ondansetron 4 MG Tab.DIS PO PRN (09:57)
[2025-01-09] MEDS: CLOZAPINE 100 MG PO SCH (20:51)
[2025-01-09] MEDS: Citalopram 20 MG Tab PO SCH (20:51)
[2025-01-09] MEDS: Divalproex Sodium Delayed-Release 250 MG Tab.CR PO SCH (20:52)
[2025-01-10 06:16] LABS: ANION GAP 6.8 mmol/L (5.0-14.0); CALCIUM 9.1 mg/dL (8.5-10.1); CREATININE 1.3 mg/dL (0.8-1.3); EST CRCL DRUG DOSING (CG) 49.94 mL/min; MAGNESIUM 1.9 mg/dL (1.8-2.4); POTASSIUM,K 3.6 mmol/L (3.6-5.2)
[2025-01-10] MEDS: Potassium Chloride 20 MEQ Tab.ER PO ONE (08:16)
[2025-01-10 11:18] VITALS: BP 136/71; PULSE 90
== END 2025-01-10 14:04 | disposition home or self-care (01) | DRG 683 ==
LOC: JP.ED 18:53 → JP.MS 22:28
PROVIDERS: ADMIT Registered Nurse; ATTEND Hospitalist
DX: N17.9 Acute kidney failure, unspecified (principal); K56.0 Paralytic ileus; F20.9 Schizophrenia, unspecified; H26.9 Unspecified cataract; H40.9 Unspecified glaucoma; I10 Essential (primary) hypertension; K59.09 Other constipation; E87.6 Hypokalemia; K59.01 Slow transit constipation; K21.9 Gastro-esophageal reflux disease without esophagitis; F41.9 Anxiety disorder, unspecified; F32.A Depression, unspecified; E03.9 Hypothyroidism, unspecified; Z79.01 Long term (current) use of anticoagulants; Z86.718 Personal history of other venous thrombosis and embolism; Z79.899 Other long term (current) drug therapy
CPT/HCPCS: 36415; 71045; 71045-26; 74177; 80048; 80053; 81001; 83605; 83690; 83735; 84443; 85025; 85027; 87040; 96361; 96365; 96375; 97161-GP; 97530-GP; 99223; 99232; 99238; 99284; 99285-25; A9270-GY; J2405; J2543; J3010; J3475; J7030; Q0162; Q9967

== ENCOUNTER 2025-01-13 11:27 | Emergency (ER) | payer MEDICAID ==
[2025-01-13 12:14] LABS: BASOPHILS ABSOLUTE AUTO 0.03 K/uL (0.00-0.10); BASOPHILS PERCENT AUTO 0.5 % (0.1-1.3); EOSINOPHILS ABSOLUTE AUTO 0.18 K/uL (0.00-0.40); HEMATOCRIT 34.4 % (38.4-49.7); IMMATURE GRAN ABSOLUTE AUTO 0.05 K/uL (0.00-0.23); IMMATURE GRAN PERCENT AUTO 0.8 % (0.0-0.7); LYMPHOCYTES ABSOLUTE AUTO 1.56 K/uL (0.8-3.3); LYMPHOCYTES PERCENT AUTO 25.7 % (11.4-47.7); MEAN CORPUSCULAR HEMOGLOBIN 29.9 pg (31.6-35.5); MEAN CORPUSCULAR VOLUME 93.5 fL (81.4-99.0); MONOCYTES ABSOLUTE AUTO 0.68 K/uL (0.20-0.90); MONOCYTES PERCENT AUTO 11.2 % (3.3-12.6); NEUTROPHILS ABSOLUTE AUTO 3.57 K/uL (1.0-7.6); NEUTROPHILS PERCENT AUTO 58.8 % (40.0-78.1); PLATELET COUNT,PLT 193 K/uL (130-375); RED BLOOD CELL COUNT 3.68 M/uL (4.14-5.76); WHITE BLOOD CELL COUNT,WBC 6.1 K/uL (3.2-11.0)
[2025-01-13] MEDS: Sodium Chloride 0.9% 1,000 ML IV ONE (12:23)
[2025-01-13 12:31] LABS: INR 1.3; PROTHROMBIN TIME 13.4 sec (9.2-10.6)
[2025-01-13 12:35] LABS: A/G RATIO 0.8 (1.2-2.2); ALANINE AMINOTRANSFERASE,ALT 7 U/L (12-78); ALBUMIN 3.2 g/dL (3.4-5.0); ALKALINE PHOSPHATASE 102 U/L (46-116); ASPARTATE AMNIOTRANSFERASE,AST 12 U/L (15-37); BILIRUBIN TOTAL 0.4 mg/dL (0.2-1.0); BLOOD UREA NITROGEN,BUN 24 mg/dL (7-18); CARBON DIOXIDE,CO2 33 mmol/L (21-32); CHLORIDE,CL 98 mmol/L (100-108); CREATININE 2.2 mg/dL (0.8-1.3); EST CRCL DRUG DOSING (CG) 29.46 mL/min; ESTIMATED GFR 33 mL/min (>60); GLUCOSE RANDOM 110 mg/dL (74-106); POTASSIUM,K 3.5 mmol/L (3.6-5.2); PROTEIN TOTAL,TP 7.1 g/dL (6.4-8.2); SODIUM,NA 139 mmol/L (140-148)
[2025-01-13 12:42] LABS: CALCIUM 9.1 mg/dL (8.5-10.1)
[2025-01-13 12:57] LABS: ANION GAP 11.5 mmol/L (5.0-14.0)
[2025-01-13] MEDS: Iopamidol 612 MG/ML 100 ML Bottle IV ONE (13:47)
[2025-01-13] MEDS: Sodium Chloride 0.9% 10 ML Syringe FLUSH ONE (13:47)
[2025-01-13] MEDS: Sodium Chloride 0.9% 100 ML IV ONE (13:47)
[2025-01-13] MEDS: Sodium Phosphate,Monobasic/Sodium Phosphate,Dibasic Enema 133 ML Bottle RECTAL ONE (15:05)
[2025-01-13 16:40] VITALS: BP 146/77; PULSE 75
== END 2025-01-13 17:13 | disposition home or self-care (01) ==
LOC: JP.ED 11:27
DX: K59.00 Constipation, unspecified (principal); I10 Essential (primary) hypertension; E03.9 Hypothyroidism, unspecified; Z79.01 Long term (current) use of anticoagulants; Z79.890 Hormone replacement therapy; Z79.899 Other long term (current) drug therapy
CPT/HCPCS: 36415; 74177; 80053; 83605; 83690; 85025; 85610; 96360; 99284; A9270; J7030; Q9967

== ENCOUNTER 2025-04-02 10:20 | Emergency (ER) | payer MEDICAID ==
[2025-04-02 11:46] LABS: BASOPHILS ABSOLUTE AUTO 0.04 K/uL (0.00-0.10); BASOPHILS PERCENT AUTO 0.5 % (0.1-1.3); EOSINOPHILS ABSOLUTE AUTO 0.12 K/uL (0.00-0.40); EOSINOPHILS PERCENT AUTO 1.4 % (0.0-5.4); IMMATURE GRAN ABSOLUTE AUTO 0.06 K/uL (0.00-0.23); IMMATURE GRAN PERCENT AUTO 0.7 % (0.0-0.7); LYMPHOCYTES ABSOLUTE AUTO 1.55 K/uL (0.8-3.3); LYMPHOCYTES PERCENT AUTO 18.1 % (11.4-47.7); MONOCYTES ABSOLUTE AUTO 0.84 K/uL (0.20-0.90); MONOCYTES PERCENT AUTO 9.8 % (3.3-12.6); NEUTROPHILS ABSOLUTE AUTO 5.96 K/uL (1.0-7.6); NEUTROPHILS PERCENT AUTO 69.5 % (40.0-78.1); PLATELET COUNT,PLT 180 K/uL (130-375); RED BLOOD CELL COUNT 4.66 M/uL (4.14-5.76); WHITE BLOOD CELL COUNT,WBC 8.6 K/uL (3.2-11.0)
[2025-04-02 12:25] LABS: INR 1.4
[2025-04-02 12:29] LABS: A/G RATIO 0.9 (1.2-2.2); ALANINE AMINOTRANSFERASE,ALT 15 U/L (12-78); ASPARTATE AMNIOTRANSFERASE,AST 14 U/L (15-37); BILIRUBIN TOTAL 0.3 mg/dL (0.2-1.0); BLOOD UREA NITROGEN,BUN 22 mg/dL (7-18); CARBON DIOXIDE,CO2 34 mmol/L (21-32); CHLORIDE,CL 94 mmol/L (100-108); CREATININE 1.1 mg/dL (0.8-1.3); EST CRCL DRUG DOSING (CG) 61.22 mL/min; ESTIMATED GFR 75 mL/min (>60); GLUCOSE RANDOM 100 mg/dL (74-106); POTASSIUM,K 3.2 mmol/L (3.6-5.2); PROTEIN TOTAL,TP 6.6 g/dL (6.4-8.2); SODIUM,NA 134 mmol/L (140-148)
[2025-04-02] MEDS ORDERED: Lidocaine 1% 2 ML ONE (12:33)
[2025-04-02] MEDS: Iopamidol 612 MG/ML 100 ML Bottle IV SCH (13:11)
[2025-04-02] MEDS: Sodium Chloride 0.9% 10 ML Syringe FLUSH ONE (13:12)
[2025-04-02 14:10] LABS: APPEARANCE,URINE CLEAR (CLEAR); GLUCOSE,URINE NEGATIVE (NEGATIVE); OCCULT BLOOD,URINE NEGATIVE (NEGATIVE)
[2025-04-02 14:16] VITALS: BP 158/86; PULSE 81
== END 2025-04-02 14:52 | disposition home or self-care (01) ==
LOC: JP.ED 10:20
DX: R53.1 Weakness (principal); K59.00 Constipation, unspecified; I10 Essential (primary) hypertension; Z79.899 Other long term (current) drug therapy; Z79.890 Hormone replacement therapy
CPT/HCPCS: 36410; 36415; 74177; 80053; 81003; 83605; 83690; 85025; 85610; 96360; 99283; 99285; J2003; J7030; Q9967

== ENCOUNTER 2025-04-05 10:08 | Inpatient (IN) | payer MEDICAID ==
[2025-04-05 10:43] LABS: BASOPHILS ABSOLUTE AUTO 0.04 K/uL (0.00-0.10); BASOPHILS PERCENT AUTO 0.3 % (0.1-1.3); EOSINOPHILS ABSOLUTE AUTO 0.09 K/uL (0.00-0.40); EOSINOPHILS PERCENT AUTO 0.8 % (0.0-5.4); IMMATURE GRAN ABSOLUTE AUTO 0.07 K/uL (0.00-0.23); IMMATURE GRAN PERCENT AUTO 0.6 % (0.0-0.7); LYMPHOCYTES ABSOLUTE AUTO 1.28 K/uL (0.8-3.3); LYMPHOCYTES PERCENT AUTO 10.9 % (11.4-47.7); MONOCYTES ABSOLUTE AUTO 1.04 K/uL (0.20-0.90); MONOCYTES PERCENT AUTO 8.9 % (3.3-12.6); NEUTROPHILS ABSOLUTE AUTO 9.23 K/uL (1.0-7.6); NEUTROPHILS PERCENT AUTO 78.5 % (40.0-78.1); PLATELET COUNT,PLT 172 K/uL (130-375); RED BLOOD CELL COUNT 4.19 M/uL (4.14-5.76); WHITE BLOOD CELL COUNT,WBC 11.8 K/uL (3.2-11.0)
[2025-04-05 10:47] LABS: BASE EXCESS VENOUS 6.2 mm/L; BICARBONATE,VENOUS 31.4 mmol/L; O2 SATURATION VENOUS 40.3; OXYHEMOGLOBIN 39.4 %; PCO2 VENOUS 49.7 mm/Hg; PH,VENOUS 7.417 (7.350-7.450); TOTAL HEMOGLOBIN 12.7 g/dL (13.5-18.0)
[2025-04-05 10:57] LABS: PO2 VENOUS 26.1 mm/Hg
[2025-04-05 11:10] LABS: A/G RATIO 0.9 (1.2-2.2); ALANINE AMINOTRANSFERASE,ALT 19 U/L (12-78); ASPARTATE AMNIOTRANSFERASE,AST 20 U/L (15-37); BILIRUBIN TOTAL 0.3 mg/dL (0.2-1.0); BLOOD UREA NITROGEN,BUN 19 mg/dL (7-18); CARBON DIOXIDE,CO2 34 mmol/L (21-32); CHLORIDE,CL 94 mmol/L (100-108); CREATININE 1.7 mg/dL (0.8-1.3); EST CRCL DRUG DOSING (CG) 38.19 mL/min; ESTIMATED GFR 44 mL/min (>60); GLUCOSE RANDOM 119 mg/dL (74-106); POTASSIUM,K 3.0 mmol/L (3.6-5.2); PROTEIN TOTAL,TP 6.8 g/dL (6.4-8.2); SODIUM,NA 135 mmol/L (140-148)
[2025-04-05] MEDS: Sodium Chloride 0.9% 10 ML Syringe FLUSH ONE (11:33)
[2025-04-05] MEDS: Iopamidol 612 MG/ML 100 ML Bottle IV SCH (11:34)
[2025-04-05 12:11] LABS: APPEARANCE,URINE CLEAR (CLEAR); GLUCOSE,URINE NEGATIVE (NEGATIVE); OCCULT BLOOD,URINE NEGATIVE (NEGATIVE)
[2025-04-05 12:30] LABS: SQUAMOUS EPITHELIAL CELLS,UR RARE /HPF; UROTHELIAL CELLS,URINE NOT SEEN /HPF
[2025-04-05] MEDS: Sodium Phosphate,Monobasic/Sodium Phosphate,Dibasic Enema 133 ML Bottle RECTAL ONE (15:54)
[2025-04-05] MEDS: CLOZAPINE 100 MG PO SCH (20:31)
[2025-04-05] MEDS: Divalproex Sodium Delayed-Release 250 MG Tab.CR PO SCH (20:32)
[2025-04-06 05:50] LABS: BASOPHILS ABSOLUTE AUTO 0.03 K/uL (0.00-0.10); BASOPHILS PERCENT AUTO 0.3 % (0.1-1.3); EOSINOPHILS ABSOLUTE AUTO 0.13 K/uL (0.00-0.40); EOSINOPHILS PERCENT AUTO 1.4 % (0.0-5.4); IMMATURE GRAN ABSOLUTE AUTO 0.03 K/uL (0.00-0.23); IMMATURE GRAN PERCENT AUTO 0.3 % (0.0-0.7); LYMPHOCYTES ABSOLUTE AUTO 1.15 K/uL (0.8-3.3); LYMPHOCYTES PERCENT AUTO 12.4 % (11.4-47.7); MONOCYTES ABSOLUTE AUTO 0.99 K/uL (0.20-0.90); MONOCYTES PERCENT AUTO 10.6 % (3.3-12.6); NEUTROPHILS ABSOLUTE AUTO 6.97 K/uL (1.0-7.6); NEUTROPHILS PERCENT AUTO 75.0 % (40.0-78.1); PLATELET COUNT,PLT 154 K/uL (130-375); RED BLOOD CELL COUNT 3.78 M/uL (4.14-5.76); WHITE BLOOD CELL COUNT,WBC 9.3 K/uL (3.2-11.0)
[2025-04-06 06:11] LABS: A/G RATIO 0.8 (1.2-2.2); ALANINE AMINOTRANSFERASE,ALT 14 U/L (12-78); ASPARTATE AMNIOTRANSFERASE,AST 15 U/L (15-37); BILIRUBIN TOTAL 0.3 mg/dL (0.2-1.0); BLOOD UREA NITROGEN,BUN 13 mg/dL (7-18); CARBON DIOXIDE,CO2 33 mmol/L (21-32); CHLORIDE,CL 102 mmol/L (100-108); CREATININE 0.9 mg/dL (0.8-1.3); EST CRCL DRUG DOSING (CG) 74.83 mL/min; ESTIMATED GFR 95 mL/min (>60); GLUCOSE RANDOM 99 mg/dL (74-106); POTASSIUM,K 3.6 mmol/L (3.6-5.2); PROTEIN TOTAL,TP 5.5 g/dL (6.4-8.2); SODIUM,NA 138 mmol/L (140-148)
[2025-04-06] MEDS: CLOZAPINE 100 MG PO SCH (20:39)
[2025-04-07 05:37] LABS: BASOPHILS ABSOLUTE AUTO 0.04 K/uL (0.00-0.10); BASOPHILS PERCENT AUTO 0.5 % (0.1-1.3); EOSINOPHILS ABSOLUTE AUTO 0.17 K/uL (0.00-0.40); EOSINOPHILS PERCENT AUTO 2.2 % (0.0-5.4); IMMATURE GRAN ABSOLUTE AUTO 0.04 K/uL (0.00-0.23); IMMATURE GRAN PERCENT AUTO 0.5 % (0.0-0.7); LYMPHOCYTES ABSOLUTE AUTO 1.49 K/uL (0.8-3.3); LYMPHOCYTES PERCENT AUTO 18.9 % (11.4-47.7); MONOCYTES ABSOLUTE AUTO 0.78 K/uL (0.20-0.90); MONOCYTES PERCENT AUTO 9.9 % (3.3-12.6); NEUTROPHILS ABSOLUTE AUTO 5.36 K/uL (1.0-7.6); NEUTROPHILS PERCENT AUTO 68.0 % (40.0-78.1); PLATELET COUNT,PLT 142 K/uL (130-375); RED BLOOD CELL COUNT 3.57 M/uL (4.14-5.76); WHITE BLOOD CELL COUNT,WBC 7.9 K/uL (3.2-11.0)
[2025-04-07] MEDS: Albuterol 0.083% 2.5 MG/3 ML Neb Soln NEB PRN (05:52)
[2025-04-07] MEDS: Albuterol 0.083% 2.5 MG/3 ML Neb Soln ONE (05:56)
[2025-04-07 06:01] LABS: A/G RATIO 0.7 (1.2-2.2); ALANINE AMINOTRANSFERASE,ALT 13 U/L (12-78); ASPARTATE AMNIOTRANSFERASE,AST 15 U/L (15-37); BILIRUBIN TOTAL 0.4 mg/dL (0.2-1.0); BLOOD UREA NITROGEN,BUN 12 mg/dL (7-18); CARBON DIOXIDE,CO2 30 mmol/L (21-32); CHLORIDE,CL 102 mmol/L (100-108); CREATININE 0.9 mg/dL (0.8-1.3); EST CRCL DRUG DOSING (CG) 74.83 mL/min; ESTIMATED GFR 95 mL/min (>60); GLUCOSE RANDOM 89 mg/dL (74-106); POTASSIUM,K 3.5 mmol/L (3.6-5.2); PROTEIN TOTAL,TP 5.3 g/dL (6.4-8.2); SODIUM,NA 137 mmol/L (140-148)
[2025-04-07] MEDS: Furosemide 20 MG/2 ML VIAL IVPUSH ONE (06:29)
[2025-04-08 06:00] LABS: BASOPHILS ABSOLUTE AUTO 0.04 K/uL (0.00-0.10); BASOPHILS PERCENT AUTO 0.6 % (0.1-1.3); EOSINOPHILS ABSOLUTE AUTO 0.28 K/uL (0.00-0.40); EOSINOPHILS PERCENT AUTO 4.0 % (0.0-5.4); IMMATURE GRAN ABSOLUTE AUTO 0.05 K/uL (0.00-0.23); IMMATURE GRAN PERCENT AUTO 0.7 % (0.0-0.7); LYMPHOCYTES ABSOLUTE AUTO 1.67 K/uL (0.8-3.3); LYMPHOCYTES PERCENT AUTO 23.9 % (11.4-47.7); MONOCYTES ABSOLUTE AUTO 0.65 K/uL (0.20-0.90); MONOCYTES PERCENT AUTO 9.3 % (3.3-12.6); NEUTROPHILS ABSOLUTE AUTO 4.30 K/uL (1.0-7.6); NEUTROPHILS PERCENT AUTO 61.5 % (40.0-78.1); PLATELET COUNT,PLT 149 K/uL (130-375); RED BLOOD CELL COUNT 3.97 M/uL (4.14-5.76); WHITE BLOOD CELL COUNT,WBC 7.0 K/uL (3.2-11.0)
[2025-04-08 06:14] LABS: A/G RATIO 0.6 (1.2-2.2); ALANINE AMINOTRANSFERASE,ALT 17 U/L (12-78); ASPARTATE AMNIOTRANSFERASE,AST 23 U/L (15-37); BILIRUBIN TOTAL 0.5 mg/dL (0.2-1.0); BLOOD UREA NITROGEN,BUN 15 mg/dL (7-18); CARBON DIOXIDE,CO2 32 mmol/L (21-32); CHLORIDE,CL 101 mmol/L (100-108); CREATININE 0.9 mg/dL (0.8-1.3); EST CRCL DRUG DOSING (CG) 75.21 mL/min; ESTIMATED GFR 95 mL/min (>60); GLUCOSE RANDOM 83 mg/dL (74-106); POTASSIUM,K 4.2 mmol/L (3.6-5.2); PROTEIN TOTAL,TP 6.0 g/dL (6.4-8.2); SODIUM,NA 137 mmol/L (140-148)
[2025-04-09 08:07] LABS: BASOPHILS ABSOLUTE AUTO 0.03 K/uL (0.00-0.10); BASOPHILS PERCENT AUTO 0.4 % (0.1-1.3); EOSINOPHILS ABSOLUTE AUTO 0.19 K/uL (0.00-0.40); EOSINOPHILS PERCENT AUTO 2.7 % (0.0-5.4); IMMATURE GRAN ABSOLUTE AUTO 0.04 K/uL (0.00-0.23); IMMATURE GRAN PERCENT AUTO 0.6 % (0.0-0.7); LYMPHOCYTES ABSOLUTE AUTO 1.35 K/uL (0.8-3.3); LYMPHOCYTES PERCENT AUTO 18.9 % (11.4-47.7); MONOCYTES ABSOLUTE AUTO 0.85 K/uL (0.20-0.90); MONOCYTES PERCENT AUTO 11.9 % (3.3-12.6); NEUTROPHILS ABSOLUTE AUTO 4.67 K/uL (1.0-7.6); NEUTROPHILS PERCENT AUTO 65.5 % (40.0-78.1); PLATELET COUNT,PLT 153 K/uL (130-375); RED BLOOD CELL COUNT 4.09 M/uL (4.14-5.76); WHITE BLOOD CELL COUNT,WBC 7.1 K/uL (3.2-11.0)
[2025-04-09 08:26] LABS: A/G RATIO 0.7 (1.2-2.2); ALANINE AMINOTRANSFERASE,ALT 11 U/L (12-78); ASPARTATE AMNIOTRANSFERASE,AST 16 U/L (15-37); BILIRUBIN TOTAL 0.4 mg/dL (0.2-1.0); BLOOD UREA NITROGEN,BUN 18 mg/dL (7-18); CARBON DIOXIDE,CO2 33 mmol/L (21-32); CHLORIDE,CL 100 mmol/L (100-108); CREATININE 1.1 mg/dL (0.8-1.3); EST CRCL DRUG DOSING (CG) 61.53 mL/min; ESTIMATED GFR 75 mL/min (>60); GLUCOSE RANDOM 111 mg/dL (74-106); POTASSIUM,K 3.9 mmol/L (3.6-5.2); PROTEIN TOTAL,TP 6.1 g/dL (6.4-8.2); SODIUM,NA 139 mmol/L (140-148)
[2025-04-09] MEDS: Prochlorperazine 10 MG/2 ML SDV IVPUSH PRN (08:29)
[2025-04-10 11:13] VITALS: BP 121/48; PULSE 72
== END 2025-04-10 13:21 | disposition home or self-care (01) | DRG 389 ==
LOC: JP.ED 10:08 → JP.MS 14:08
PROVIDERS: ADMIT Student in an Organized Health Care Education/Training Program; ATTEND Internal Medicine
PROC: 0D9670Z Drainage of Stomach with Drainage Device, Via Natural or Artificial Opening (ICD-10-PCS; principal; 2025-04-05)
DX: K56.609 Unspecified intestinal obstruction, unspecified as to partial versus complete obstruction (principal); E87.20 Acidosis, unspecified; N17.9 Acute kidney failure, unspecified; K56.41 Fecal impaction; K56.0 Paralytic ileus; E86.0 Dehydration; E87.6 Hypokalemia; I10 Essential (primary) hypertension; K21.9 Gastro-esophageal reflux disease without esophagitis; F41.9 Anxiety disorder, unspecified; F32.A Depression, unspecified; F20.9 Schizophrenia, unspecified; E03.9 Hypothyroidism, unspecified; Z79.899 Other long term (current) drug therapy; Z79.01 Long term (current) use of anticoagulants; Z79.890 Hormone replacement therapy; Z86.718 Personal history of other venous thrombosis and embolism
CPT/HCPCS: 36415; 43752; 71045; 71045-26; 74018; 74018-26; 74177; 74177-26; 80053; 81001; 82803; 83605; 83735; 83880; 85025; 86140; 87040; 87077; 87186; 94640; 96360; 96361; 99223; 99232; 99233; 99238; 99285; 99285-25; A9270-GY; J0780; J1938; J3480; J7030; Q9967

== ENCOUNTER 2025-05-14 03:34 | Emergency (ER) | payer MEDICAID ==
[2025-05-14 04:18] LABS: BASOPHILS ABSOLUTE AUTO 0.04 K/uL (0.00-0.10); BASOPHILS PERCENT AUTO 0.4 % (0.1-1.3); EOSINOPHILS ABSOLUTE AUTO 0.22 K/uL (0.00-0.40); EOSINOPHILS PERCENT AUTO 2.0 % (0.0-5.4); IMMATURE GRAN ABSOLUTE AUTO 0.07 K/uL (0.00-0.23); IMMATURE GRAN PERCENT AUTO 0.6 % (0.0-0.7); LYMPHOCYTES ABSOLUTE AUTO 0.85 K/uL (0.8-3.3); LYMPHOCYTES PERCENT AUTO 7.8 % (11.4-47.7); MONOCYTES ABSOLUTE AUTO 1.10 K/uL (0.20-0.90); MONOCYTES PERCENT AUTO 10.1 % (3.3-12.6); NEUTROPHILS ABSOLUTE AUTO 8.63 K/uL (1.0-7.6); NEUTROPHILS PERCENT AUTO 79.1 % (40.0-78.1); PLATELET COUNT,PLT 149 K/uL (130-375); RED BLOOD CELL COUNT 3.67 M/uL (4.14-5.76); WHITE BLOOD CELL COUNT,WBC 10.9 K/uL (3.2-11.0)
[2025-05-14 04:34] LABS: BLOOD UREA NITROGEN,BUN 26.0 mg/dL (7-18); CARBON DIOXIDE,CO2 32.0 mmol/L (21-32); CHLORIDE,CL 95.0 mmol/L (100-108); CREATININE 1.6 mg/dL (0.8-1.3); EST CRCL DRUG DOSING (CG) 43.03 mL/min; ESTIMATED GFR 48.0 mL/min (>60); GLUCOSE RANDOM 109.0 mg/dL (74-106); POTASSIUM,K 3.3 mmol/L (3.6-5.2); SODIUM,NA 138.0 mmol/L (140-148)
[2025-05-14 06:45] VITALS: PULSE 88
[2025-05-14 09:23] VITALS: BP 99/58
== END 2025-05-14 09:24 | disposition home or self-care (01) ==
LOC: JP.ED 03:34
DX: J45.21 Mild intermittent asthma with (acute) exacerbation (principal); I10 Essential (primary) hypertension; E03.9 Hypothyroidism, unspecified; K21.9 Gastro-esophageal reflux disease without esophagitis; Z86.718 Personal history of other venous thrombosis and embolism; Z79.01 Long term (current) use of anticoagulants; Z79.890 Hormone replacement therapy; Z79.899 Other long term (current) drug therapy
CPT/HCPCS: 36415; 71045; 80048; 83605; 85025; 87428; 94640; 99285; J7620; Q0144; A9270-GY

== ENCOUNTER 2025-05-15 05:20 | Emergency (ER) | payer MEDICAID ==
[2025-05-15 05:54] LABS: BASOPHILS ABSOLUTE AUTO 0.03 K/uL (0.00-0.10); BASOPHILS PERCENT AUTO 0.3 % (0.1-1.3); EOSINOPHILS ABSOLUTE AUTO 0.27 K/uL (0.00-0.40); EOSINOPHILS PERCENT AUTO 2.9 % (0.0-5.4); IMMATURE GRAN ABSOLUTE AUTO 0.04 K/uL (0.00-0.23); IMMATURE GRAN PERCENT AUTO 0.4 % (0.0-0.7); LYMPHOCYTES ABSOLUTE AUTO 1.05 K/uL (0.8-3.3); LYMPHOCYTES PERCENT AUTO 11.1 % (11.4-47.7); MONOCYTES ABSOLUTE AUTO 1.26 K/uL (0.20-0.90); MONOCYTES PERCENT AUTO 13.4 % (3.3-12.6); NEUTROPHILS ABSOLUTE AUTO 6.78 K/uL (1.0-7.6); NEUTROPHILS PERCENT AUTO 71.9 % (40.0-78.1); PLATELET COUNT,PLT 148 K/uL (130-375); RED BLOOD CELL COUNT 3.49 M/uL (4.14-5.76); WHITE BLOOD CELL COUNT,WBC 9.4 K/uL (3.2-11.0)
[2025-05-15 06:22] LABS: BLOOD UREA NITROGEN,BUN 29.0 mg/dL (7-18); CARBON DIOXIDE,CO2 31.0 mmol/L (21-32); CHLORIDE,CL 97.0 mmol/L (100-108); CREATININE 1.8 mg/dL (0.8-1.3); EST CRCL DRUG DOSING (CG) 35.59 mL/min; ESTIMATED GFR 41.0 mL/min (>60); GLUCOSE RANDOM 105.0 mg/dL (74-106); POTASSIUM,K 3.0 mmol/L (3.6-5.2); SODIUM,NA 137.0 mmol/L (140-148)
[2025-05-15] MEDS: methylPREDNISolone Sodium Succinate 125 MG/2 ML SDV IVPUSH ONE (06:24)
[2025-05-15] MEDS: Potassium Chloride 20 MEQ Tab.ER PO SCH (08:10)
[2025-05-15 08:20] LABS: BASE EXCESS VENOUS 6.6 mm/L; BICARBONATE,VENOUS 31.8 mmol/L; O2 SATURATION VENOUS 49.8; OXYHEMOGLOBIN 48.6 %; PCO2 VENOUS 50.6 mm/Hg; PH,VENOUS 7.415 (7.350-7.450); PO2 VENOUS 31.5 mm/Hg; TOTAL HEMOGLOBIN 11.0 g/dL (13.5-18.0)
[2025-05-15 13:47] VITALS: BP 96/50; PULSE 91
== END 2025-05-15 13:47 ==
LOC: JP.ED 05:20
DX: J44.1 Chronic obstructive pulmonary disease with (acute) exacerbation (principal); E87.6 Hypokalemia; I10 Essential (primary) hypertension; E03.9 Hypothyroidism, unspecified; Z79.01 Long term (current) use of anticoagulants; Z79.890 Hormone replacement therapy; Z79.899 Other long term (current) drug therapy
CPT/HCPCS: 36415; 71045; 80048; 82803; 83605; 85025; 94640; 96374; 99285; A9270; J2919; J7620; Q0144

== ENCOUNTER 2025-05-23 09:16 | Emergency (ER) | payer MEDICAID ==
[2025-05-23 10:07] LABS: PLATELET COUNT,PLT 216 K/uL (130-375); RED BLOOD CELL COUNT 3.67 M/uL (4.14-5.76); WHITE BLOOD CELL COUNT,WBC 9.7 K/uL (3.2-11.0)
[2025-05-23 10:41] LABS: A/G RATIO 0.9 (1.2-2.2); ALANINE AMINOTRANSFERASE,ALT 17 U/L (12-78); ASPARTATE AMNIOTRANSFERASE,AST 16 U/L (15-37); BILIRUBIN TOTAL 0.4 mg/dL (0.2-1.0); BLOOD UREA NITROGEN,BUN 23 mg/dL (7-18); CARBON DIOXIDE,CO2 33 mmol/L (21-32); CHLORIDE,CL 102 mmol/L (100-108); CREATININE 1.2 mg/dL (0.8-1.3); EST CRCL DRUG DOSING (CG) 55.38 mL/min; ESTIMATED GFR 67 mL/min (>60); GLUCOSE RANDOM 85 mg/dL (74-106); POTASSIUM,K 3.5 mmol/L (3.6-5.2); PROTEIN TOTAL,TP 5.1 g/dL (6.4-8.2); SODIUM,NA 139 mmol/L (140-148)
[2025-05-23 10:42] LABS: BASE EXCESS ARTERIAL 7.2 mm/L; BICARBONATE,ARTERIAL 30.9 mmol/L (22.0-26.0); O2 SATURATION ARTERIAL 97.7 % (95.0-98.0); OXYHEMOGLOBIN 93.9 %; PCO2 ARTERIAL 40.9 mmHg (35.0-42.0); PO2 ARTERIAL 91.0 mmHg (75.0-100.0); TOTAL HEMOGLOBIN 11.3 g/dL (13.5-18.0)
[2025-05-23 10:43] LABS: BAND ABSOLUTE MAN 0.39 K/uL; BAND PERCENT MAN 4 % (5-11); EOSINOPHILS ABSOLUTE MAN 0.19 K/uL (0.00-0.40); EOSINOPHILS PERCENT MAN 2 % (2-4); LYMPHOCYTES ABSOLUTE MAN 2.33 K/uL (0.8-3.3); LYMPHOCYTES PERCENT MAN 24 % (24-44); MONOCYTES ABSOLUTE MAN 0.87 K/uL (0.20-0.90); MONOCYTES PERCENT MAN 9 % (2-6); NEUTROPHILS ABSOLUTE MAN 5.92 K/uL (1.0-7.6); SEG NEUTROPHILS PERCENT MAN 61 % (36-66)
[2025-05-23 12:37] VITALS: BP 115/49; PULSE 87
== END 2025-05-23 13:29 ==
LOC: JP.ED 09:16
DX: J18.9 Pneumonia, unspecified organism (principal); I10 Essential (primary) hypertension; K21.9 Gastro-esophageal reflux disease without esophagitis; E03.9 Hypothyroidism, unspecified; Z79.899 Other long term (current) drug therapy; Z79.890 Hormone replacement therapy
CPT/HCPCS: 36415; 36600; 71045; 71250; 80053; 82803; 83605; 85025; 87040; 87428; 96365; 99285; J0696

== ENCOUNTER 2025-05-30 09:46 | Inpatient (IN) | payer MEDICAID ==
[2025-05-30 10:50] LABS: BASE EXCESS ARTERIAL 5.4 mm/L; BICARBONATE,ARTERIAL 29.3 mmol/L (22.0-26.0); O2 SATURATION ARTERIAL 82.2 % (95.0-98.0); OXYHEMOGLOBIN 79.9 %; PCO2 ARTERIAL 41.4 mmHg (35.0-42.0); PO2 ARTERIAL 47.4 mmHg (75.0-100.0); TOTAL HEMOGLOBIN 11.0 g/dL (13.5-18.0)
[2025-05-30 10:56] LABS: BASOPHILS ABSOLUTE AUTO 0.04 K/uL (0.00-0.10); BASOPHILS PERCENT AUTO 0.3 % (0.1-1.3); EOSINOPHILS ABSOLUTE AUTO 0.12 K/uL (0.00-0.40); EOSINOPHILS PERCENT AUTO 1.0 % (0.0-5.4); IMMATURE GRAN ABSOLUTE AUTO 0.23 K/uL (0.00-0.23); IMMATURE GRAN PERCENT AUTO 1.9 % (0.0-0.7); LYMPHOCYTES ABSOLUTE AUTO 1.71 K/uL (0.8-3.3); LYMPHOCYTES PERCENT AUTO 13.8 % (11.4-47.7); MONOCYTES ABSOLUTE AUTO 1.23 K/uL (0.20-0.90); MONOCYTES PERCENT AUTO 9.9 % (3.3-12.6); NEUTROPHILS ABSOLUTE AUTO 9.07 K/uL (1.0-7.6); NEUTROPHILS PERCENT AUTO 73.1 % (40.0-78.1); PLATELET COUNT,PLT 209 K/uL (130-375); RED BLOOD CELL COUNT 3.76 M/uL (4.14-5.76); WHITE BLOOD CELL COUNT,WBC 12.4 K/uL (3.2-11.0)
[2025-05-30 10:57] LABS: LACTIC ACID 1.6 mmol/L (0.4-2.0)
[2025-05-30 11:19] LABS: A/G RATIO 0.7 (1.2-2.2); ALANINE AMINOTRANSFERASE,ALT 13 U/L (12-78); ASPARTATE AMNIOTRANSFERASE,AST 11 U/L (15-37); BILIRUBIN TOTAL 0.3 mg/dL (0.2-1.0); BLOOD UREA NITROGEN,BUN 20 mg/dL (7-18); CARBON DIOXIDE,CO2 33 mmol/L (21-32); CHLORIDE,CL 102 mmol/L (100-108); CREATININE 1.2 mg/dL (0.8-1.3); ESTIMATED GFR 67 mL/min (>60); GLUCOSE RANDOM 106 mg/dL (74-106); POTASSIUM,K 3.3 mmol/L (3.6-5.2); PROTEIN TOTAL,TP 6.0 g/dL (6.4-8.2); SODIUM,NA 143 mmol/L (140-148)
[2025-05-30] MEDS: Lactated Ringers 1,000 ML IV SCH ×2 (11:19→22:19)
[2025-05-30 12:34] LABS: APPEARANCE,URINE CLEAR (CLEAR); GLUCOSE,URINE NEGATIVE (NEGATIVE); OCCULT BLOOD,URINE NEGATIVE (NEGATIVE)
[2025-05-30] MEDS: Iopamidol 612 MG/ML 100 ML Bottle IV SCH (13:51)
[2025-05-30] MEDS: Sodium Chloride 0.9% 10 ML Syringe FLUSH ONE (15:51)
[2025-05-30] MEDS: Iopamidol 755 Mg/ML 100 ML Bottle IV ONE (15:51)
[2025-05-30] MEDS: Polyethylene Glycol 3350 Powder 238 GM Bot PO ONE (16:22)
[2025-05-30] MEDS: LORazepam 2 MG/ML SDV IVPUSH ONE (16:49)
[2025-05-30] MEDS ORDERED: Sodium Chloride 0.9% 10 ML Syringe FLUSH PRN ×2 (18:52→21:27)
[2025-05-30] MEDS: Levofloxacin/Dextrose 5%-Water 750 MG in Premix Bag 1 BAG IV ONE (19:13)
[2025-05-30] MEDS ORDERED: Ondansetron 4 MG/2 ML SDV IV PRN (21:27)
[2025-05-30] MEDS ORDERED: Albuterol 0.083% 2.5 MG/3 ML Neb Soln NEB PRN (21:27)
[2025-05-30] MEDS ORDERED: Norepinephrine Bit/D5W Premix 4 MG/250 ML BAG IV SCH (21:27)
[2025-05-30 21:54] LABS: PLATELET COUNT,PLT 173.0 K/uL (130-375); RED BLOOD CELL COUNT 3.3 M/uL (4.14-5.76); WHITE BLOOD CELL COUNT,WBC 8.0 K/uL (3.2-11.0)
[2025-05-30] MEDS: Divalproex Sodium Delayed-Release 250 MG Tab.CR PO SCH (22:01)
[2025-05-30] MEDS: Sennosides/Docusate Sodium 50-8.6 MG Tab PO SCH (22:03)
[2025-05-30 22:20] LABS: BLOOD UREA NITROGEN,BUN 15.0 mg/dL (7-18); CARBON DIOXIDE,CO2 30.0 mmol/L (21-32); CHLORIDE,CL 104.0 mmol/L (100-108); CREATININE 1.2 mg/dL (0.8-1.3); EST CRCL DRUG DOSING (CG) 55.66 mL/min; ESTIMATED GFR 67.0 mL/min (>60); GLUCOSE RANDOM 100.0 mg/dL (74-106); POTASSIUM,K 3.0 mmol/L (3.6-5.2); PRO B-TYPE NATRIUR PEPT,BNPPRO 874.0 pg/mL (5-125); SODIUM,NA 141.0 mmol/L (140-148); TROPONIN I HIGH SENSITIVITY 7.6 pg/mL (<=60.3)
[2025-05-30] MEDS: Potassium Chloride 20 MEQ Tab.ER PO ONE (23:05)
[2025-05-31] MEDS: Potassium Chloride 20 MEQ Tab.ER PO ONE (02:14)
[2025-05-31 06:23] LABS: PLATELET COUNT,PLT 178.0 K/uL (130-375); RED BLOOD CELL COUNT 3.24 M/uL (4.14-5.76); WHITE BLOOD CELL COUNT,WBC 6.9 K/uL (3.2-11.0)
[2025-05-31 06:44] LABS: A/G RATIO 0.7 (1.2-2.2); ALANINE AMINOTRANSFERASE,ALT 11 U/L (12-78); ASPARTATE AMNIOTRANSFERASE,AST 9 U/L (15-37); BILIRUBIN TOTAL 0.4 mg/dL (0.2-1.0); BLOOD UREA NITROGEN,BUN 11 mg/dL (7-18); CARBON DIOXIDE,CO2 31 mmol/L (21-32); CHLORIDE,CL 105 mmol/L (100-108); CREATININE 1.1 mg/dL (0.8-1.3); EST CRCL DRUG DOSING (CG) 60.42 mL/min; ESTIMATED GFR 75 mL/min (>60); GLUCOSE RANDOM 76 mg/dL (74-106); POTASSIUM,K 4.1 mmol/L (3.6-5.2); PROTEIN TOTAL,TP 5.3 g/dL (6.4-8.2); SODIUM,NA 142 mmol/L (140-148); VANCOMYCIN RANDOM 15.9 ug/mL (0.0-50.0)
[2025-05-31] MEDS: Psyllium Husk Powder Sugar Free 5.85 GM Packet PO SCH (09:17)
[2025-05-31] MEDS: Magnesium Sulfate 2 GM/50 mL 2 GM in Premix Bag 1 BAG IV SCH (09:20)
[2025-05-31] MEDS: Piperacillin/Tazobactam/Dext 4.5 GM in Premix Bag 1 BAG IV SCH (13:49)
[2025-05-31] MEDS: Nystatin Topical Powder 15 GM Bottle TOP SCH (17:00)
[2025-05-31] MEDS: Levofloxacin/Dextrose 5%-Water 750 MG in Premix Bag 1 BAG IV SCH (18:21)
[2025-06-01 06:21] LABS: BLOOD UREA NITROGEN,BUN 11.0 mg/dL (7-18); CARBON DIOXIDE,CO2 31.0 mmol/L (21-32); CHLORIDE,CL 104.0 mmol/L (100-108); CREATININE 1.4 mg/dL (0.8-1.3); EST CRCL DRUG DOSING (CG) 47.71 mL/min; ESTIMATED GFR 56.0 mL/min (>60); GLUCOSE RANDOM 126.0 mg/dL (74-106); POTASSIUM,K 3.8 mmol/L (3.6-5.2); SODIUM,NA 142.0 mmol/L (140-148)
[2025-06-01] MEDS: Psyllium Husk Powder Sugar Free 5.85 GM Packet PO SCH (08:00)
[2025-06-02 06:30] LABS: BLOOD UREA NITROGEN,BUN 11.0 mg/dL (7-18); CARBON DIOXIDE,CO2 34.0 mmol/L (21-32); CHLORIDE,CL 105.0 mmol/L (100-108); CREATININE 1.2 mg/dL (0.8-1.3); EST CRCL DRUG DOSING (CG) 55.66 mL/min; ESTIMATED GFR 67.0 mL/min (>60); GLUCOSE RANDOM 98.0 mg/dL (74-106); POTASSIUM,K 3.7 mmol/L (3.6-5.2); SODIUM,NA 144.0 mmol/L (140-148)
[2025-06-02 11:39] VITALS: BP 124/78; PULSE 78
== END 2025-06-02 13:16 | disposition home or self-care (01) | DRG 872 ==
LOC: JP.ED 09:46 → JP.ICU 19:22 → JP.MS 05-31 16:20
PROVIDERS: ADMIT Hospitalist; ATTEND Hospitalist
PROC: 3E03329 Introduction of Other Anti-infective into Peripheral Vein, Percutaneous Approach (ICD-10-PCS; principal; 2025-05-30)
PROC: 4A033R1 Measurement of Arterial Saturation, Peripheral, Percutaneous Approach (ICD-10-PCS; principal; 2025-05-30)
DX: A41.9 Sepsis, unspecified organism (principal); A09 Infectious gastroenteritis and colitis, unspecified; K59.01 Slow transit constipation; E86.0 Dehydration; F20.9 Schizophrenia, unspecified; H26.9 Unspecified cataract; H40.9 Unspecified glaucoma; K21.9 Gastro-esophageal reflux disease without esophagitis; I95.9 Hypotension, unspecified; E87.6 Hypokalemia; F41.9 Anxiety disorder, unspecified; F32.A Depression, unspecified; E03.9 Hypothyroidism, unspecified; Z79.01 Long term (current) use of anticoagulants; Z86.718 Personal history of other venous thrombosis and embolism; Z79.899 Other long term (current) drug therapy
CPT/HCPCS: 36415; 36600; 71045; 71045-26; 71275; 71275-26; 74018; 74018-26; 74177; 74177-26; 80048; 80053; 80202; 81003; 82140; 82803; 83605; 83735; 83880; 84484; 85025; 85027; 87040; 94640; 96365; 96375; 97161-GP; 99285; 99285-25; A9270-GY; C1758; J1956; J2060; J2543; J3373; J3374; J3475; J7030; J7040; J7050; J7120; Q9967

== ENCOUNTER 2025-06-14 09:21 | Emergency (ER) | payer MEDICAID ==
[2025-06-14 10:48] LABS: BASOPHILS ABSOLUTE AUTO 0.06 K/uL (0.00-0.10); BASOPHILS PERCENT AUTO 0.6 % (0.1-1.3); EOSINOPHILS ABSOLUTE AUTO 0.19 K/uL (0.00-0.40); EOSINOPHILS PERCENT AUTO 2.0 % (0.0-5.4); IMMATURE GRAN ABSOLUTE AUTO 0.29 K/uL (0.00-0.23); IMMATURE GRAN PERCENT AUTO 3.0 % (0.0-0.7); LYMPHOCYTES ABSOLUTE AUTO 1.30 K/uL (0.8-3.3); LYMPHOCYTES PERCENT AUTO 13.5 % (11.4-47.7); MONOCYTES ABSOLUTE AUTO 0.96 K/uL (0.20-0.90); MONOCYTES PERCENT AUTO 10.0 % (3.3-12.6); NEUTROPHILS ABSOLUTE AUTO 6.80 K/uL (1.0-7.6); NEUTROPHILS PERCENT AUTO 70.9 % (40.0-78.1); PLATELET COUNT,PLT 235 K/uL (130-375); RED BLOOD CELL COUNT 3.70 M/uL (4.14-5.76); WHITE BLOOD CELL COUNT,WBC 9.6 K/uL (3.2-11.0)
[2025-06-14 11:05] LABS: INR 1.2
[2025-06-14 11:08] LABS: A/G RATIO 0.8 (1.2-2.2); ALANINE AMINOTRANSFERASE,ALT 15 U/L (12-78); ASPARTATE AMNIOTRANSFERASE,AST 12 U/L (15-37); BILIRUBIN TOTAL 0.2 mg/dL (0.2-1.0); BLOOD UREA NITROGEN,BUN 20 mg/dL (7-18); CARBON DIOXIDE,CO2 33 mmol/L (21-32); CHLORIDE,CL 99 mmol/L (100-108); CREATININE 1.4 mg/dL (0.8-1.3); EST CRCL DRUG DOSING (CG) 47.47 mL/min; ESTIMATED GFR 56 mL/min (>60); GLUCOSE RANDOM 124 mg/dL (74-106); POTASSIUM,K 3.1 mmol/L (3.6-5.2); PROTEIN TOTAL,TP 6.2 g/dL (6.4-8.2); SODIUM,NA 140 mmol/L (140-148)
[2025-06-14 11:17] LABS: APPEARANCE,URINE CLEAR (CLEAR); GLUCOSE,URINE NEGATIVE (NEGATIVE); OCCULT BLOOD,URINE NEGATIVE (NEGATIVE)
[2025-06-14 11:25] LABS: SQUAMOUS EPITHELIAL CELLS,UR RARE /HPF; UROTHELIAL CELLS,URINE NOT SEEN /HPF
[2025-06-14] MEDS: Iopamidol 612 MG/ML 100 ML Bottle IV SCH (11:30)
[2025-06-14 12:58] VITALS: BP 138/78; PULSE 80
== END 2025-06-14 13:56 | disposition home or self-care (01) ==
LOC: JP.ED 09:21
DX: K59.00 Constipation, unspecified (principal); I10 Essential (primary) hypertension; K21.9 Gastro-esophageal reflux disease without esophagitis; E03.9 Hypothyroidism, unspecified; Z87.891 Personal history of nicotine dependence; Z79.899 Other long term (current) drug therapy
CPT/HCPCS: 36415; 71045; 74177; 80053; 81001; 83605; 85025; 85610; 96360; 99285; J7030; Q9967